=== PATIENT | male | born 1980 | race Caucasian/White ===

== ENCOUNTER 2016-09-07 08:50 | Inpatient (IN) | payer MEDICARE, OTHER ==
[2016-09-07 09:43] LABS: Basophils % (A) 1 %; CH 28.5; Eosinophils # (A) 0.3 k/uL (0-0.7); Eosinophils % (A) 5 %; HCT 22.4 % (39.0-53.0); HDW 3.22; HGB 7.5 gm/dL (13.0-17.5); Luc # (Auto) 0.07; Luc % (Auto) 1; Lymphocytes # (A) 1.7 k/uL (1.0-4.8); Lymphocytes % (A) 27 %; MCH 27.5 pg (25.0-35.0); MCHC 33.6 g/dL (31.0-37.0); MCV 81.9 fL (80.0-100.0); Mean Platelet Volume 8.2; Monocytes # (A) 0.3 k/uL (0-1.0); Monocytes % (A) 5 %; Neutrophils # (A) 3.7 k/uL (1.3-7.7); Neutrophils % (A) 61 %; RBC 2.73 m/uL (4.30-5.90); RDW 14.4 % (11.5-15.5); WBC 6.1 k/uL (3.8-10.6); WBC (Perox) 6.42
[2016-09-07 09:53] LABS: INR 0.9 (<1.1); Partial Thromboplastin Time 22.1 sec (22.0-30.0); Prothrombin Time 9.3 sec (9.0-12.0)
[2016-09-07 09:57] LABS: Calcium 7.8 mg/dL (8.4-10.2); Potassium 4.7 mmol/L (3.5-5.1); Total Bilirubin 0.2 mg/dL (0.2-1.3); Total Protein 4.3 g/dL (6.3-8.2)
--- NOTE | 2016-09-07 09:59 | ED ---
General Adult HPI - General Chief complaint: Recheck/Abnormal Lab/Rx Stated complaint: ABNORMAL KIDNEY VALUES, SENT BY Time Seen by Provider: 09/07/16 09:04 Source: patient, RN notes reviewed Mode of arrival: wheelchair Limitations: no limitations - History of Present Illness Initial comments: Patient 36-year-old male who presents to the emergency room today with chief complaint of abnormal lab values. He states he was advised by his roving carrier come to the emergency room. He states he had blood drawn 2-3 days ago and was called this morning with results stating that his kidney function had elevated. Patient does admit to swelling locally to his lower extremities bilaterally down to his feet and also swelling to his scrotum. Patient denies any recent fever, chills, shortness of breath, chest pain, back pain, abdominal pain, nausea or vomiting, numbness or tingling, dysuria or hematuria, constipation or diarrhea, headaches or visual changes, or any other complaints. - Related Data Home Medications Medication Instructions Recorded Confirmed DULoxetine HCL [Cymbalta] 60 mg PO HS 05/22/15 09/07/16 DULoxetine HCL [Cymbalta] 60 mg PO HS 05/23/15 09/07/16 Hydrocodone/Acetaminophen [[place] 1 tab PO Q6HR PRN 12/26/15 09/07/16 5-325] Pravastatin Sodium [Pravachol] 40 mg PO HS 12/26/15 09/07/16 ARIPiprazole [Abilify] 10 mg PO HS 09/07/16 09/07/16 Diltiazem Cd [Cardizem Cd] 180 mg PO HS 09/07/16 09/07/16 Folic Acid/Multivit-Min/[place] 1 tab PO HS 09/07/16 09/07/16 [Therapeutic-M Tablet] Omeprazole [PriLOSEC] 40 mg PO HS 09/07/16 09/07/16 Previous Rx's Medication Instructions Recorded Carvedilol [Coreg] 25 mg PO BID #60 tablet 12/29/15 Allergies Allergy/AdvReac Type Severity Reaction Status Date / Time atorvastatin calcium AdvReac Nausea & Verified 09/07/16 09:10 [From Lipitor] Vomiting losartan potassium AdvReac Nausea & Verified 09/07/16 09:10 [From Cozaar] Vomiting Review of Systems ROS Statement: Those systems with pertinent positive or pertinent negative responses have been documented in the HPI. ROS Other: All systems not noted in ROS Statement are negative. Past Medical History Past Medical History: Diabetes Mellitus, Hyperlipidemia, Hypertension, Renal Disease Additional Past Medical History / Comment(s): diabetic since he was age 21. insulin pump since 2009.PER EGD(HIATAL HERNIA) History of Any Multi-Drug Resistant Organisms: C-DIFF, MRSA Date of last positivie culture/infection: 2015 C-diff per Nel[facility] admin charge MDRO Source:: foot wound Additional Past Surgical History / Comment(s): 2008 left great toe amp and 2013 2nd to 5th left foot. toes amputated. right chest mediport x2 with removal in 2010 and 2012. right eye retina reattachment sx 03/2015.EGD. Past Anesthesia/Blood Transfusion Reactions: No Reported Reaction Past Psychological History: Depression Smoking Status: Never smoker Past Alcohol Use History: Rare Additional Past Alcohol Use History / Comment(s): Patient states he is a lifelong nonsmoker. He denies any medical marijuana, marijuana, street drug use. He states he drinks alcohol on a rare basis. Past Drug Use History: None Reported - Past Family History Mother Family Medical History: Hypertension Father Family Medical History: CVA/TIA, Hypertension General Exam - General Exam Comments Initial Comments: General: The patient is awake and alert, in no distress, and does not appear acutely ill. Eye: Pupils are equal, round and reactive to light, extra-ocular movements are intact. No nystagmus. There is normal conjunctiva bilaterally. No signs of icterus. Ears, nose, mouth and throat: There are moist mucous membranes and no oral lesions. Neck: The neck is supple, there is no tenderness or JVD. Cardiovascular: There is a regular rate and rhythm. No murmur, rub or gallop is appreciated. Respiratory: Lungs are clear to auscultation, respirations are non-labored, breath sounds are equal. No wheezes, stridor, rales, or rhonchi. Gastrointestinal: Soft, non-distended, non-tender abdomen without masses or organomegaly noted. There is no rebound or guarding present. No CVA tenderness. Bowel sounds are unremarkable. Musculoskeletal: Normal ROM, no tenderness. Strength 5/5. Sensation intact. Pulses equal bilaterally 2+. 2+ pitting edema bilaterally to the lower charities. Neurological: A&O x 3. CN II-XII intact, There are no obvious motor or sensory deficits. Coordination appears grossly intact. Speech is normal. Skin: Skin is warm and dry and no rashes or lesions are noted. Psychiatric: Cooperative, appropriate mood & affect, normal judgment. : Patient does have moderate swelling to the scrotal sac bilaterally. Normal rectal tone. No bright red blood per rectum. Guaiac negative. Limitations: no limitations Course Vital Signs 09/07/16 09/07/16 09:00 10:14 Temperature 97.9 F Pulse Rate 76 72 Respiratory 16 18 Rate Blood Pressure 132/78 140/81 O2 Sat by Pulse 98 95 Oximetry Medical Decision Making - Medical Decision Making Patient's labs reviewed here in the emergency room. Shows Hemoccult 7.5. Guaiac-negative. Denies any blood per rectum. Denies history of blood transfusion. Patient's BUN/creatinine elevated here the emergency room. Patient does have anasarca. Patient will be admitted for acute renal injury. Patient x-ray reviewed shows pneumonia right lower lobe. Will be started on antibiotic in the emergency room. Consult to nephrology. - Lab Data Result diagrams: 09/07/16 09:30 09/07/16 09:30 Lab Results 09/07/16 09/07/16 09/07/16 Range/Units 09:30 09:30 09:30 WBC 6.1 (3.8-10.6) k/uL RBC 2.73 L (4.30-5.90) m/uL Hgb 7.5 L (13.0-17.5) gm/dL Hct 22.4 L (39.0-53.0) % MCV 81.9 (80.0-100.0) fL MCH 27.5 (25.0-35.0) pg MCHC 33.6 (31.0-37.0) g/dL RDW 14.4 (11.5-15.5) % Plt Count 236 (150-450) k/uL Neutrophils % 61 % Lymphocytes % 27 % Monocytes % 5 % Eosinophils % 5 % Basophils % 1 % Neutrophils # 3.7 (1.3-7.7) k/uL Lymphocytes # 1.7 (1.0-4.8) k/uL Monocytes # 0.3 (0-1.0) k/uL Eosinophils # 0.3 (0-0.7) k/uL Basophils # 0.0 (0-0.2) k/uL PT (9.0-12.0) sec INR (<1.1) APTT (22.0-30.0) sec Sodium 131 L (137-145) mmol/L Potassium 4.7 (3.5-5.1) mmol/L Chloride 102 (98-107) mmol/L Carbon Dioxide 19 L (22-30) mmol/L Anion Gap 10 mmol/L BUN 54 H (9-20) mg/dL Creatinine 4.96 H (0.66-1.25) mg/dL Est GFR (MDRD) Af Amer 16 (>60 ml/min/1.73 sqM) Est GFR (MDRD) Non-Af 13 (>60 ml/min/1.73 sqM) Glucose 360 H (74-99) mg/dL POC Glucose (mg/dL) (75-99) mg/dL POC Glu Long Good[employer] Drier ID Calcium 7.8 L (8.4-10.2) mg/dL Total Bilirubin 0.2 (0.2-1.3) mg/dL AST 16 L (17-59) U/L ALT 36 (21-72) U/L Alkaline Phosphatase 90 (38-126) U/L NT-Pro-B Natriuret Pep 2240 pg/mL Total Protein 4.3 L (6.3-8.2) g/dL Albumin 2.0 L (3.5-5.0) g/dL 09/07/16 09/07/16 Range/Units 09:30 10:38 WBC (3.8-10.6) k/uL RBC (4.30-5.90) m/uL Hgb (13.0-17.5) gm/dL Hct (39.0-53.0) % MCV (80.0-100.0) fL MCH (25.0-35.0) pg MCHC (31.0-37.0) g/dL RDW (11.5-15.5) % Plt Count (150-450) k/uL Neutrophils % % Lymphocytes % % Monocytes % % Eosinophils % % Basophils % % Neutrophils # (1.3-7.7) k/uL Lymphocytes # (1.0-4.8) k/uL Monocytes # (0-1.0) k/uL Eosinophils # (0-0.7) k/uL Basophils # (0-0.2) k/uL PT 9.3 (9.0-12.0) sec INR 0.9 (<1.1) APTT 22.1 (22.0-30.0) sec Sodium (137-145) mmol/L Potassium (3.5-5.1) mmol/L Chloride (98-107) mmol/L Carbon Dioxide (22-30) mmol/L Anion Gap mmol/L BUN (9-20) mg/dL Creatinine (0.66-1.25) mg/dL Est GFR (MDRD) Af Amer (>60 ml/min/1.73 sqM) Est GFR (MDRD) Non-Af (>60 ml/min/1.73 sqM) Glucose (74-99) mg/dL POC Glucose (mg/dL) 354 H (75-99) mg/dL POC Glu Long Good[employer] Drier ID Omar Proctor Calcium (8.4-10.2) mg/dL Total Bilirubin (0.2-1.3) mg/dL AST (17-59) U/L ALT (21-72) U/L Alkaline Phosphatase (38-126) U/L NT-Pro-B Natriuret Pep pg/mL Total Protein (6.3-8.2) g/dL Albumin (3.5-5.0) g/dL Disposition Clinical Impression: Acute renal injury, Anasarca, Community acquired pneumonia, Anemia Disposition: ADMITTED IP TO THIS [facility] Condition: Stable Time of Disposition: 11:18
--- NOTE | 2016-09-07 10:22 | XR ---
EXAMINATION TYPE: XR chest 2V DATE OF EXAM: 09/07/2016 10:09 AM COMPARISON: Chest x-ray January 21, 2016. HISTORY: Leg swelling TECHNIQUE: Frontal and lateral views of the chest are obtained. FINDINGS: There is new suspicious posterior medial right lower lobe airspace opacity. No large pleur al effusion or pneumothorax is present bilaterally The cardiac silhouette size is within normal limit s. The osseous structures are intact. IMPRESSION: New suspicious right medial posterior basilar infiltrate.
[2016-09-07 10:40] LABS: Glucose,Whole Blood 354 mg/dL (75-99)
[2016-09-07] MEDS ORDERED: INSULIN LISPRO (humaLOG) 300 UNIT/3 ML VIAL SQ ONE (10:54)
[2016-09-07] MEDS ORDERED: PNEUMONIA PROTOCOL UTILIZED 1 EACH MISC PO PRN (11:19)
[2016-09-07] MEDS ORDERED: SODIUM CHLORIDE 0.9% 1,000 ML IV ONE (11:19)
[2016-09-07] MEDS ORDERED: LEVOFLOXACIN 750MG-D5W PMX 750 MG in DEXTROSE/WATER 1 150ML.BAG IVPB STA (11:19)
[2016-09-07] MEDS ORDERED: NALOXONE 0.4 MG/ML 1 ML VIAL IV PRN (11:20)
[2016-09-07] MEDS ORDERED: ACETAMINOPHEN TAB 325 MG TAB PO PRN (11:20)
[2016-09-07] MEDS: HYDROcodone/APAP 5-325MG 1 EACH TAB PO PRN ×2 (14:57→20:19)
[2016-09-07 16:39] LABS: CH 28.7; CHCM 34.4; HCT 22.5 % (39.0-53.0); HDW 3.22; HGB 7.4 gm/dL (13.0-17.5); MCH 27.7 pg (25.0-35.0); RBC 2.67 m/uL (4.30-5.90); RDW 14.6 % (11.5-15.5); WBC 5.6 k/uL (3.8-10.6)
[2016-09-07 17:40] LABS: Glucose,Whole Blood 178 mg/dL (75-99)
[2016-09-07] MEDS: CARVEDILOL 12.5 MG TAB PO SCH (20:20)
[2016-09-07 20:34] LABS: Glucose,Whole Blood 56 mg/dL (75-99)
[2016-09-07 21:19] LABS: Glucose,Whole Blood 102 mg/dL (75-99)
[2016-09-07 21:19] LABS: Glucose,Whole Blood 60 mg/dL (75-99)
[2016-09-07] MEDS: PANTOPRAZOLE 40 MG TABLET PO SCH (21:54)
[2016-09-07] MEDS: DILTIAZEM CD 180 MG CAP.ER.24H PO SCH (21:54)
[2016-09-07] MEDS: PRAVASTATIN SODIUM 40 MG TAB PO SCH (21:54)
[2016-09-07] MEDS: ARIPiprazole 10 MG TAB PO SCH (21:54)
[2016-09-07] MEDS: DULoxetine HCL 60 MG CAPSULE.DR PO SCH (21:54)
[2016-09-07] MEDS: MULTIVITAMINS, THERA 1 EACH TAB PO SCH (21:54)
[2016-09-08] MEDS: HYDROcodone/APAP 5-325MG 1 EACH TAB PO PRN ×4 (03:11→20:58)
[2016-09-08 08:25] LABS: Glucose,Whole Blood 147 mg/dL (75-99)
[2016-09-08] MEDS: HEPARIN SODIUM,PORCINE 5,000 UNIT/ML 1 ML VIAL SQ SCH ×2 (08:38→21:01)
[2016-09-08] MEDS: CARVEDILOL 12.5 MG TAB PO SCH ×2 (08:38→17:26)
[2016-09-08 08:43] LABS: Basophils % (A) 1 %; CHCM 33.5; Eosinophils # (A) 0.4 k/uL (0-0.7); Eosinophils % (A) 5 %; HCT 25.3 % (39.0-53.0); HDW 3.15; HGB 8.4 gm/dL (13.0-17.5); Luc # (Auto) 0.14; Luc % (Auto) 2; Lymphocytes # (A) 1.7 k/uL (1.0-4.8); Lymphocytes % (A) 24 %; MCHC 33.3 g/dL (31.0-37.0); MCV 83.9 fL (80.0-100.0); Mean Platelet Volume 7.4; Monocytes # (A) 0.4 k/uL (0-1.0); Monocytes % (A) 5 %; Neutrophils # (A) 4.4 k/uL (1.3-7.7); Neutrophils % (A) 63 %; RBC 3.01 m/uL (4.30-5.90); RDW 14.7 % (11.5-15.5); WBC (Perox) 7.58
[2016-09-08 09:02] LABS: Calcium 7.8 mg/dL (8.4-10.2); Potassium 4.6 mmol/L (3.5-5.1); Total Bilirubin 0.2 mg/dL (0.2-1.3); Total Protein 4.6 g/dL (6.3-8.2)
--- NOTE | 2016-09-08 09:06 | HP ---
DATE OF ADMISSION: 09/07/2016 CHIEF COMPLAINT: Abnormal lab values sent from photographic artist office. HISTORY OF PRESENT ILLNESS: Mr. Acharya is a 36-year-old male with a known history of chronic kidney disease stage V, diabetes type 1 on insulin, hypertension, hyperlipidemia, history of GI bleed and right eye surgery and history of left foot MRSA infection status post amputation of left all toes, was sent to the emergency room from Dr. Charles's office with chief complaints of abnormal lab values. Patient advised by his photographic artist to come to the emergency room. Patient also having worsening leg swelling and bilateral lower extremity and scrotal swelling as well and generalized swelling. Otherwise, the patient denied any complaints of recent fever, chills. No recent illnesses. No sick contacts at home. No complaints of chest pain or shortness of breath. The patient does have right foot ulcer which is oozing serosanguineous discharge, and also left toe amputation skin flap is also oozing as well. No fever. No chills. No headache or dizziness or lightheadedness. No ( ) symptoms. All other complete review of systems negative except as above. Past medical history includes: Diabetes type 1 on insulin pump, hypertension, hyperlipidemia, CKD Stage III, history of C. dif. History of MRSA. PAST SURGICAL HISTORY: Left great toe amputation in 2008, second to fifth left foot toe amputation in 2013, right chest Mediport placement x2 with removal in 2010 and 2012, right eye retinal detachment surgery in March 2015 and EGD. PSYCHOSOCIAL HISTORY: Depression. SOCIAL HISTORY: Patient never a smoker. Denied any drugs or IVDU. Drinks on a rare occasional basis. FAMILY HISTORY: Mother had hypertension. Father had CVA/transient ischemic attack and hypertension. Home medications include: 1. Duloxetine. 2. [place] 5. 3. Pravastatin. 4. Abilify. 5. Cardizem CD. 6. Therapeutic M tablet. 7. Omeprazole. 8. Coreg. ALLERGIES: include: ATORVASTATIN, LOSARTAN, POTASSIUM, COZAAR. PHYSICAL EXAMINATION: A 36-year-old male lying in bed. Awake, alert, oriented, x3 appears to be in no apparent distress. VITALS: Blood pressure is 140/81, pulse is 72, respiration 18 and temperature afebrile. Pulse ox 97% on room air. HEENT: Atraumatic, normocephalic, puffiness present. Neck is supple. No JVD. CVS: S1, S2 heard. No murmurs, no gallop. LUNGS: Bilateral air entry is present. No wheezing. No crackles. Nonlabored breathing. Abdomen is soft, nontender. Bowel sounds are present. Patient does have scrotal edema. NEUROLOGICAL: Alert and oriented times three. No focal neurologic deficits. EXTREMITIES: The patient does have bilateral lower extremity edema and scrotal edema 4+ edema. Pulses palpable. Left first to fifth toe amputation with skin flap and drainage and oozing and serous discharge. Right foot ulcer on the plantar surface of first great toe, gangrenous tissue with oozing discharge. No active signs of infection noted. PSYCHIATRIC: Cooperative, seems depressed. LABORATORY DATA: WBC 6.1, hemoglobin 7.5, platelets 236, INR 0.9, sodium 131, potassium 4.7, chloride 102, bicarb is 19. BUN 54, creatinine 4.96. GFR is 13. Blood sugar is 360. Calcium 7.8. Liver enzymes normal. NT-proBNP is 2240, albumin 2.0. Chest x-ray new suspicious right medial posterior basilar infiltrate. IMPRESSION: 1. Anasarca and fluid overload secondary to chronic kidney disease Stage V. 2. Chronic kidney disease, Stage V. 3. Uncontrolled diabetes mellitus with hyperglycemia. 4. Type 1 diabetes mellitus on insulin pump. 5. Normocytic anemia/anemia of chronic disease due to chronic kidney disease. 6. Hypertension. 7. Hyperlipidemia. 8. History of gastrointestinal bleed. 9. History of right eye retinal detachment. 10. History of left to fifth toe amputation due to Methicillin-resistant Staph aureus infection. 11. Hypoosmolar hyponatremia. 12. Anasarca secondary to chronic kidney disease V. 13. Chronic kidney disease Stage V. 14. Right basilar infiltrate with possible pneumonia. 15. Uncontrolled diabetes mellitus on insulin pump. 16. Hypertension. 17. Hyperlipidemia. 18. History of gastrointestinal bleed. 19. History of right eye retinal attachment. DISCUSSION AND PLAN: Patient will be continued on antibiotics in the form of levofloxacin and start the home medications and nephrology has been consulted for further evaluation of chronic kidney disease and continue deep venous thrombosis prophylaxis. Further recommendations based on clinical course and nephrology evaluation.
[2016-09-08] MEDS ORDERED: INSULIN PUMP ACTIVE INSULIN 1 EACH MISC MISCELLANE PRN (09:25)
[2016-09-08] MEDS ORDERED: INSULIN LISPRO (humaLOG) 300 UNIT/3 ML VIAL SQ PRN (09:25)
[2016-09-08] MEDS ORDERED: INSPUCOR MISCELLANE PRN (09:25)
[2016-09-08] MEDS ORDERED: INSULIN PUMP BASAL RATES 1 EACH MISC MISCELLANE PRN (09:25)
[2016-09-08] MEDS ORDERED: INSULIN PUMP TARGET GLUCOSE 1 EACH MISC MISCELLANE PRN (09:25)
--- NOTE | 2016-09-08 09:39 | XR ---
EXAMINATION TYPE: XR chest 2V DATE OF EXAM: 09/08/2016 8:04 AM COMPARISON: 09/07/2016 HISTORY: Abnormal x-ray FINDINGS: There is improving appearance the chest with resolving areas of consolidation involving the medial ri ght lung base. Tiny effusion not excluded. No pneumothorax or overt failure. Heart size stable. IMPRESSION: 1. Improving right lower lobe infiltrate
[2016-09-08 09:40] LABS: Appearance,Urine Clear (Clear); Bacteria,Urine Occasional /hpf; Bilirubin,Urine Negative (Negative); Glucose,Urine (UA) 3+ (Negative); Ketones,Urine Negative (Negative); Leukocyte Esterase,Urine Negative (Negative); Mucus,Urine Rare /hpf; Nitrite,Urine Negative (Negative); PH, Urine 6.5 (5.0-8.0); Particle Count 1321; Protein,Urine 3+ (Negative); RBC,Urine 1 /hpf (0-5); Specific Gravity,Urine 1.006 (1.001-1.035); Squamous Epithelial Cell,Urine <1 /hpf (0-4); UA Billing (MACRO vs. MICRO) MICRO; Urobilinogen,Urine <2.0 mg/dL (<2.0); WBC,Urine 15 /hpf (0-5)
[2016-09-08] MEDS: LEVOFLOXACIN 750 MG TAB PO SCH (12:08)
[2016-09-08 12:29] LABS: Glucose,Whole Blood 190 mg/dL (75-99)
[2016-09-08] MEDS: INSULIN PUMP MEAL BOLUS 1 UNIT MISC MISCELLANE SCH ×3 (12:50→21:17)
--- NOTE | 2016-09-08 15:09 | NM ---
EXAMINATION TYPE: NM bone 3 phase DATE OF EXAM: 09/08/2016 3:01 PM COMPARISON: 08/11/2013 HISTORY: Possible osteomyelitis bilateral foot ulcers Triple phase bone scintigraphy was performed following the injection of27.1 mCi Tc 99m MDP. Immediat e images and 7 hours post injection images acquired. FINDINGS: There is increased perfusion along the medial aspect of the feet bilaterally. Increased soft tissue u ptake is also noted with findings suggestive of previous surgery on the left. These findings are suggestive of cellulitis. Delayed uptake demonstrates mild intensity uptake involving the MTP joint of the right foot likely on a post arthritic basis. No intense abnormal uptake are seen to suggest osteomyelitis. IMPRESSION: Findings are most typical of cellulitis with no diagnostic evidence of osteomyelitis.
--- NOTE | 2016-09-08 15:15 | US ---
EXAMINATION TYPE: US kidneys/renal and bladder DATE OF EXAM: 09/08/2016 2:42 PM COMPARISON: Abd US in pacs CLINICAL HISTORY: Acute kidney injury. EXAM MEASUREMENTS: Right Kidney: 12.1 x 5.2 x 6.2cm Left Kidney: 12.3 x 5.8 x 6.2cm ANATOMY: TECHNOLOGIST IMPRESSION: Right Kidney: No hydronephrosis or masses seen Left Kidney: No hydronephrosis or masses seen Bladder: wnl Bilateral Jets seen: yes There is no evidence for hydronephrosis at this point in time. No nephrolithiasis is seen. No eliazar s are identified. The urinary bladder is anechoic. Bilateral ureteral jets are seen. IMPRESSION: Normal retroperitoneal ultrasound Normal Values: Renal Length = 9 - 12cm Bladder Wall: < 0.3cm
[2016-09-08] MEDS: FUROSEMIDE 10 MG/ML 4 ML VIAL IV SCH ×2 (15:30→21:01)
[2016-09-08] MEDS ORDERED: DARBEPOETIN ALFA 60 MCG/0.3 ML SYRINGE SQ SCH (16:15)
--- NOTE | 2016-09-08 16:38 | CONS ---
DATE OF CONSULTATION: REASON FOR CONSULTATION: Renal failure. HISTORY OF PRESENT ILLNESS: Patient is a 36-year-old white male with history of chronic kidney disease. Patient has had worsening of his renal function lately as outpatient, with GFR dropping from about 35 mL/minute to 18 mL/minute on his last visit in August. His serum creatinine has since then worsened significantly, with creatinine now at 5.3 mg/dL. His serum creatinine was at 1.96 in January of 2016. He denies the use of any non-steroidal anti-inflammatory agents. Apparently an ultrasound was done at [facility]; I do not have the results available at this time. Patient denies any significant urinary symptoms. He was advised admission to the hospital secondary to worsening renal function. Currently patient denies any nausea or vomiting. He states that he has been voiding. His hemoglobin was at 8.4 g/dL, which is up from 7.4 previously. UA shows 3+ proteinuria. Past medical history is significant for: 1. Type 2 diabetes. 2. Hyperlipidemia. 3. Hypertension. 4. CKD. 5. History of MRSA wound infection. 6. Right eye retinal surgery. SOCIAL HISTORY: Negative for smoking, drug abuse or alcohol abuse. REVIEW OF SYSTEMS: As per HPI. Other systems negative. Medications at home prior to admission included: 1. Cymbalta. 2. Pravachol. 3. Abilify. 4. Cardizem. 5. Prilosec. 6. Coreg. Vasotec was recently discontinued on his last visit in August. On examination, patient is comfortable, awake, alert, oriented x3, not in any acute distress. Blood pressure is 148/88, heart rate 74 per minute. He is afebrile. EXAMINATION OF THE HEART: S1 and S2. EXAMINATION OF THE LUNGS: Bilateral breath sounds are heard. ABDOMEN: Soft, nontender. Examination of lower extremities shows edema 1+ bilaterally. PHYSICAL CHEMISTRY TEACHER exam is grossly intact. Patient is moving all 4 extremities. Labs show sodium 137, potassium 4.6, BUN 59, serum creatinine 5.36. Hemoglobin 8.4 g/dL. Albumin 2.1. Ultrasound shows no evidence of hydronephrosis. ASSESSMENT: 1. Progressive renal failure; rule out any other underlying glomerulonephropathy versus acute tubular necrosis. Patient will need a kidney biopsy, and this can be performed early next week. We should proceed with a biopsy, given that there is no evidence of obstructive uropathy. No other obvious cause is apparent for worsening of his renal function. Workup for the proteinuria has been done as outpatient, and I will check the office records. The LARISSA inhibitors were appropriately discontinued on his last visit in the office in August, given the worsening renal function. 2. Mild volume overload. Will maintain patient on IV Lasix for now. Repeat labs in a.m. and schedule for kidney biopsy after the weekend. He will be monitored on a daily basis for need for initiation of renal replacement therapy. 3. Anemia. Rule out iron deficiency. Iron saturation was low in December. We can repeat another iron profile this admission and start patient on Procrit. No active bleeding noted at this time. I would avoid packed RBC transfusion if possible, given that the patient is young and will be proceeding with renal transplant. Thank you for this consultation. Will continue to follow the patient with you during his hospitalization.
[2016-09-08 20:55] LABS: Glucose,Whole Blood 73 mg/dL (75-99)
[2016-09-08] MEDS: PRAVASTATIN SODIUM 40 MG TAB PO SCH (21:00)
[2016-09-08] MEDS: PANTOPRAZOLE 40 MG TABLET PO SCH (21:00)
[2016-09-08] MEDS: ARIPiprazole 10 MG TAB PO SCH (21:01)
[2016-09-08] MEDS: MULTIVITAMINS, THERA 1 EACH TAB PO SCH (21:01)
[2016-09-08] MEDS: DILTIAZEM CD 180 MG CAP.ER.24H PO SCH (21:01)
[2016-09-08] MEDS: DULoxetine HCL 60 MG CAPSULE.DR PO SCH (21:01)
[2016-09-09 02:21] LABS: Glucose,Whole Blood 209 mg/dL (75-99)
[2016-09-09] MEDS: HYDROcodone/APAP 5-325MG 1 EACH TAB PO PRN ×3 (02:57→20:30)
[2016-09-09 07:45] LABS: Glucose,Whole Blood 219 mg/dL (75-99)
[2016-09-09] MEDS: HEPARIN SODIUM,PORCINE 5,000 UNIT/ML 1 ML VIAL SQ SCH ×4 (08:08→21:01)
[2016-09-09] MEDS: CARVEDILOL 12.5 MG TAB PO SCH ×2 (08:09→17:50)
[2016-09-09] MEDS: FUROSEMIDE 10 MG/ML 4 ML VIAL IV SCH ×2 (08:09→20:27)
[2016-09-09] MEDS: INSULIN PUMP MEAL BOLUS 1 UNIT MISC MISCELLANE SCH ×4 (08:20→22:03)
[2016-09-09] MEDS ORDERED: ONDANSETRON 4 MG/2 ML VIAL IVP PRN (10:42)
[2016-09-09 11:13] LABS: Calcium 7.9 mg/dL (8.4-10.2); Potassium 4.9 mmol/L (3.5-5.1)
[2016-09-09 12:29] LABS: Glucose,Whole Blood 324 mg/dL (75-99)
--- NOTE | 2016-09-09 14:31 | PN ---
DATE OF SERVICE: 09/08/2016 INTERVAL HISTORY: Mr. Howell is a 36-year-old male with a known history of chronic kidney disease with known history of worsening renal function, diabetes type 1 on insulin pump, hypertension, hyperlipidemia, and history of GI bleed and right eye surgery and left foot MRSA infection, status post amputation of all toes on the left side, came to the ER from Dr. Charles's office with worsening renal function and anasarca. Patient's ultrasound of the ( ) obstructive etiology. Otherwise patient was started on IV Lasix today and nephrology is planning for renal biopsy to rule out glomerulonephritis. Otherwise, patient denied any complaints of chest pain or short of breath. No acute overnight issues. REVIEW OF SYSTEMS: CONSTITUTIONAL: No fever, no chills. RESPIRATORY: No cough or sputum production. CARDIOVASCULAR: No chest pain or shortness of breath. ABDOMEN: No nausea, vomiting or abdominal pain. GENITOURINARY: Negative. ENDOCRINE: Negative. PSYCHIATRIC: Negative. SKIN: Negative. All other fourteen point review of systems negative except as above. CURRENT MEDICATIONS: Reviewed. PHYSICAL EXAMINATION: A 36-year-old male lying in bed. Awake, alert, oriented x3, appears to be in no apparent distress. VITALS: Blood pressure is 163/94, pulse is 81, respiratory rate 20, temperature afebrile, pulse ox is 98% on room air. HEENT: Atraumatic, normocephalic. Neck is supple. No JVD. CVS: S1, S2 heard. No murmurs, no gallop. LUNGS: Bilateral air entry is present. No wheeze or crackles. ABDOMEN: Soft, nontender. Bowel sounds are present. PUPPET DEVELOPER: Awake, alert, oriented x3. No focal deficits. EXTREMITIES: Bilateral 4+ edema including scrotal edema. Pulses palpable bilaterally. No clubbing or cyanosis. PSYCHIATRIC: Cooperative. LABORATORY DATA: WBC 7, hemoglobin 8.4, platelets 270, sodium 137, potassium 4.6, chloride 108, bicarb is 22, BUN 59, creatinine 5.36. Albumin 2.1. IMPRESSION: 1. Anasarca and fluid overload secondary to worsening renal function. 2. Acute on chronic kidney disease stage V. 3. Progressive renal failure possible underlying glomerulonephropathy. Nephrology is planning for renal biopsy this admission 4. Anemia of chronic disease. 5. Uncontrolled diabetes mellitus and hyperglycemia. 6. Type 1 diabetes mellitus on insulin pump. 7. Hypertension. 8. Hyperlipidemia. 9. History of gastrointestinal bleed. 10. History of right eye retinal detachment. 11. History of left foot toes amputation, secondary to methicillin-resistant Staphylococcus aureus infection. 12. Hypoosmolar hyponatremia. 13. Anasarca secondary to worsening renal function. 14. Right basilar infiltrate with possible pneumonia. 15. Uncontrolled diabetes mellitus on insulin pump. 16. Hypertension. DISCUSSION AND PLAN: Patient will be continued on antibiotics in the form of levofloxacin and with improvement in right lower lobe pneumonia and continue with diuresis with IV Lasix and Nephrology is following the patient. Anticipate biopsy early next week. We will continue to monitor hemoglobin and hematocrit and follow up closely. Further recommendations depending on clinical course.
--- NOTE | 2016-09-09 16:10 | PN ---
Patient is seen for follow-up for acute kidney top of chronic kidney disease. His renal function had been worsening as outpatient and therefore the patient was admitted. He also had evidence of fluid overload and is maintained on IV diuretics, two which he has responded well. There was no evidence of obstructive uropathy on the ultrasound and I had discussed with the patient that we will proceed with a kidney biopsy if there ultrasound was normal or showed no evidence of obstruction to explain the recent worsening of his renal function. No significant complaints at this time. On examination, blood pressure is 165/92, heart rate 83 per minute. He is afebrile. Examination of the heart S1 and S2. Examination of the lungs: Decreased breath sounds in bases. ABDOMEN: Soft, nontender. Examination of the lower extremities shows edema 2+ bilaterally with seems to have decreased. Labs show sodium 138, potassium 4.9, BUN 59, serum creatinine 5.2. ASSESSMENT: 1. Acute kidney injury on top of chronic kidney disease. We will schedule patient for kidney biopsy. He does have nephrotic range proteinuria, which is presumed to be mostly secondary to diabetes. Work-up as outpatient had been negative. I am also advised the patient that we will need to monitor his labs on a daily basis, assess for need for renal replacement therapy which hopefully he will not need soon. 2. Fluid overload. Continue with Lasix at 40 mg q.12 hours. PLAN: Continue current dose of diuretics. Repeat labs and scheduled for kidney biopsy this admission.
[2016-09-09 17:07] LABS: Glucose,Whole Blood 375 mg/dL (75-99)
[2016-09-09] MEDS ORDERED: hydrALAZINE HCL 20 MG/ML 1 ML VIAL IVP STA (17:12)
[2016-09-09 18:43] LABS: Glucose,Whole Blood 345 mg/dL (75-99)
[2016-09-09] MEDS: PRAVASTATIN SODIUM 40 MG TAB PO SCH (20:26)
[2016-09-09] MEDS: PANTOPRAZOLE 40 MG TABLET PO SCH (20:26)
[2016-09-09] MEDS: ARIPiprazole 10 MG TAB PO SCH (20:26)
[2016-09-09] MEDS: DILTIAZEM CD 180 MG CAP.ER.24H PO SCH (20:26)
[2016-09-09] MEDS: DULoxetine HCL 60 MG CAPSULE.DR PO SCH (20:26)
[2016-09-09] MEDS: MULTIVITAMINS, THERA 1 EACH TAB PO SCH (20:27)
[2016-09-09 20:57] LABS: Glucose,Whole Blood 276 mg/dL (75-99)
[2016-09-09] MEDS: TEMAZEPAM 7.5 MG CAP PO PRN (22:01)
[2016-09-10 02:14] LABS: Glucose,Whole Blood 123 mg/dL (75-99)
[2016-09-10] MEDS: HYDROcodone/APAP 5-325MG 1 EACH TAB PO PRN ×3 (05:25→22:15)
[2016-09-10 07:27] LABS: Glucose,Whole Blood 99 mg/dL (75-99)
[2016-09-10] MEDS: HEPARIN SODIUM,PORCINE 5,000 UNIT/ML 1 ML VIAL SQ SCH ×2 (09:33→21:02)
[2016-09-10] MEDS: FUROSEMIDE 10 MG/ML 4 ML VIAL IV SCH ×2 (09:33→20:59)
[2016-09-10] MEDS: INSULIN PUMP MEAL BOLUS 1 UNIT MISC MISCELLANE SCH ×4 (09:34→22:13)
[2016-09-10] MEDS: CARVEDILOL 12.5 MG TAB PO SCH ×2 (09:35→16:54)
[2016-09-10 12:17] LABS: Glucose,Whole Blood 184 mg/dL (75-99)
[2016-09-10] MEDS: LEVOFLOXACIN 750 MG TAB PO SCH (12:24)
[2016-09-10 12:38] LABS: Calcium 8.1 mg/dL (8.4-10.2); Potassium 4.8 mmol/L (3.5-5.1)
--- NOTE | 2016-09-10 14:54 | PN ---
The patient is seen for follow-up for acute kidney injury on top of chronic kidney disease. He was admitted to the hospital with worsening renal function. He was also volume overloaded and is currently maintained on diuretics. His serum creatinine has not improved much, and is staying at about 5.2 mg/dL. Patient will be scheduled for a kidney biopsy hopefully Sunday or Sunday. On examination today, patient is comfortable, awake. He is not in any acute distress. Blood pressure 156/97, heart rate 83 per minute. He is afebrile. Examination shows patient's edema has improved in his lower extremities. Abdomen is soft, nontender. Labs show sodium 138, potassium 4.8, chloride 108, BUN 56, serum creatinine 5.24. ASSESSMENT: 1. Progressive renal failure scheduled for kidney biopsy. No evidence of obstructive uropathy on ultrasound. Initial etiology for chronic kidney disease was diabetic nephropathy, which would not explain the worsening of renal function even as outpatient. 2. Volume overload, now improving. Patient is maintained on Lasix 40 mg IV q.12 hours which we can continue for now. 3. Hypertension, controlled. 4. Anemia of chronic disease, maintained on Aranesp as hemoglobin was up to 8.4 on 09/08/2016. PLAN: Continue Lasix, check CBC in a.m. and schedule kidney biopsy.
[2016-09-10 17:20] LABS: Glucose,Whole Blood 156 mg/dL (75-99)
[2016-09-10] MEDS: PRAVASTATIN SODIUM 40 MG TAB PO SCH (21:00)
[2016-09-10] MEDS: DILTIAZEM CD 180 MG CAP.ER.24H PO SCH (21:00)
[2016-09-10] MEDS: DULoxetine HCL 60 MG CAPSULE.DR PO SCH (21:00)
[2016-09-10] MEDS: MULTIVITAMINS, THERA 1 EACH TAB PO SCH (21:00)
[2016-09-10] MEDS: ARIPiprazole 10 MG TAB PO SCH (21:00)
[2016-09-10] MEDS: PANTOPRAZOLE 40 MG TABLET PO SCH (21:00)
[2016-09-10] MEDS: TEMAZEPAM 7.5 MG CAP PO PRN (22:13)
[2016-09-10 22:16] LABS: Glucose,Whole Blood 245 mg/dL (75-99)
[2016-09-11 02:03] LABS: Glucose,Whole Blood 309 mg/dL (75-99)
[2016-09-11 07:39] LABS: Glucose,Whole Blood 196 mg/dL (75-99)
[2016-09-11] MEDS: INSULIN PUMP MEAL BOLUS 1 UNIT MISC MISCELLANE SCH ×4 (09:09→21:44)
[2016-09-11] MEDS: FUROSEMIDE 10 MG/ML 4 ML VIAL IV SCH ×2 (09:09→20:49)
[2016-09-11] MEDS: CARVEDILOL 12.5 MG TAB PO SCH ×2 (09:10→17:39)
[2016-09-11] MEDS: HEPARIN SODIUM,PORCINE 5,000 UNIT/ML 1 ML VIAL SQ SCH ×2 (09:10→20:49)
[2016-09-11 11:49] LABS: Glucose,Whole Blood 221 mg/dL (75-99)
[2016-09-11] MEDS: HYDROcodone/APAP 5-325MG 1 EACH TAB PO PRN (14:00)
[2016-09-11 16:51] LABS: Glucose,Whole Blood 99 mg/dL (75-99)
--- NOTE | 2016-09-11 19:51 | PN ---
The patient is seen for follow-up for acute kidney injury. He was admitted as his renal function had been worsening as outpatient. Currently, the patient is comfortable. He has been diuresed and his volume status has improved. Renal function has not improved since admission and patient will be scheduled for kidney biopsy hopefully tomorrow. If his kidney biopsy is delayed for another 2 to 3 days he can have it done as outpatient. On examination, blood pressure is 161/97, heart rate 84 per minute. He is afebrile. Examination of the heart S1 and S2. Examination of the lungs: Bilateral breath sounds are heard. ABDOMEN: Soft, nontender. Examination of the lower extremities shows edema which is decreased. Labs are not available from today. ASSESSMENT: 1. Acute kidney injury on top of chronic kidney disease, most likely related to worsening of his underlying chronic kidney disease. There is no evidence of obstructive uropathy and patient will be scheduled for kidney biopsy hopefully tomorrow. If his kidney biopsy is not being done for another 2 days or so than he can have it done as outpatient. 2. Volume overload, currently improved. Patient remains on IV Lasix. We can likely switch him to p.o. Lasix tomorrow. 3. Anemia of chronic disease, maintained on Aranesp. 4. Diabetes. PLAN: Kidney biopsy in a.m., switch to oral diuretics in a.m., check labs in the a.m.
[2016-09-11] MEDS: PRAVASTATIN SODIUM 40 MG TAB PO SCH (20:48)
[2016-09-11] MEDS: ARIPiprazole 10 MG TAB PO SCH (20:48)
[2016-09-11] MEDS: DULoxetine HCL 60 MG CAPSULE.DR PO SCH (20:48)
[2016-09-11] MEDS: DILTIAZEM CD 180 MG CAP.ER.24H PO SCH (20:48)
[2016-09-11] MEDS: MULTIVITAMINS, THERA 1 EACH TAB PO SCH (20:48)
[2016-09-11] MEDS: PANTOPRAZOLE 40 MG TABLET PO SCH (20:48)
[2016-09-11 21:09] LABS: Glucose,Whole Blood 112 mg/dL (75-99)
[2016-09-11] MEDS: TEMAZEPAM 7.5 MG CAP PO PRN (22:09)
[2016-09-12 02:14] LABS: Glucose,Whole Blood 136 mg/dL (75-99)
[2016-09-12 07:25] LABS: Glucose,Whole Blood 136 mg/dL (75-99)
[2016-09-12 07:38] VITALS: PULSE 88; RESP 18; TEMP 97.7
[2016-09-12] MEDS: INSULIN PUMP MEAL BOLUS 1 UNIT MISC MISCELLANE SCH ×2 (08:12→13:28)
[2016-09-12] MEDS: FUROSEMIDE 10 MG/ML 4 ML VIAL IV SCH (08:12)
[2016-09-12] MEDS: CARVEDILOL 12.5 MG TAB PO SCH (08:13)
[2016-09-12] MEDS: HEPARIN SODIUM,PORCINE 5,000 UNIT/ML 1 ML VIAL SQ SCH (08:13)
[2016-09-12 09:17] LABS: INR 0.9 (<1.1); Prothrombin Time 9.7 sec (9.0-12.0)
[2016-09-12 09:53] VITALS: BP 168/104
[2016-09-12 09:54] LABS: Calcium 7.9 mg/dL (8.4-10.2); Potassium 4.5 mmol/L (3.5-5.1)
[2016-09-12 10:25] LABS: Basophils % (A) 0 %; CH 27.7; CHCM 32.2; Eosinophils # (A) 0.3 k/uL (0-0.7); Eosinophils % (A) 5 %; HDW 3.06; HGB 8.4 gm/dL (13.0-17.5); Hypochromasia Slight; Luc # (Auto) 0.09; Luc % (Auto) 2; Lymphocytes # (A) 1.7 k/uL (1.0-4.8); Lymphocytes % (A) 32 %; MCH 28.1 pg (25.0-35.0); MCHC 32.3 g/dL (31.0-37.0); MCV 86.9 fL (80.0-100.0); Mean Platelet Volume 7.2; Monocytes # (A) 0.3 k/uL (0-1.0); Monocytes % (A) 6 %; Neutrophils % (A) 55 %; RBC 2.99 m/uL (4.30-5.90); RDW 15.2 % (11.5-15.5); WBC 5.5 k/uL (3.8-10.6); WBC (Perox) 5.79
[2016-09-12] MEDS: LEVOFLOXACIN 750 MG TAB PO SCH (11:31)
[2016-09-12 11:45] LABS: Glucose,Whole Blood 223 mg/dL (75-99)
[2016-09-12 16:25] LABS: Glucose,Whole Blood 103 mg/dL (75-99)
--- NOTE | 2016-09-12 22:41 | PN ---
DATE OF SERVICE: 09/12/2016 Patient is seen for followup for acute kidney injury on top of chronic kidney disease. He also had volume overload, for which he was maintained on diuretics. Patient's blood pressure has been running high. He will not be scheduled for a kidney biopsy in the next day or so as inpatient. The plan is to do the biopsy as outpatient. Currently patient denies any nausea or vomiting. He seems to have good appetite. On examination, blood pressure is 164/98, heart rate 88 per minute. He is afebrile. EXAMINATION OF THE HEART: S1 and S2. EXAMINATION OF THE LUNGS: Decreased breath sounds in bases. ABDOMEN: Soft, nontender. Examination of the lower extremities shows edema 1+ bilaterally, currently improved. Labs show serum creatinine 5.3, sodium 140, potassium 4.5; hemoglobin 8.4 g/dL. ASSESSMENT: 1. Acute kidney injury on top of chronic kidney disease with worsening of renal function and no evidence of obstructive uropathy or any other etiology that was identified. Patient is scheduled for a kidney biopsy; however, it cannot be done as inpatient for the next day or so. Therefore patient will have it done as outpatient. 2. Hypertension, partly volume-sensitive. Increase Coreg and follow up as outpatient in one week's time. Continue with the diuretics. Patient will be switched over to 60 p.o. b.i.d. 3. Anemia of chronic disease. No active bleeding noted at this time. Patient is maintained on Aranesp. PLAN: Okay for discharge. Increase Coreg to 25 b.i.d. Continue the Cardizem. Maintain patient on oral Lasix. Follow up as outpatient in one week.
--- NOTE | 2016-09-27 23:19 | PN ---
DATE OF SERVICE: 09/09/2016 HISTORY OF PRESENT ILLNESS: Mr. Howell is a 36-year-old male with known history of CKD with a history of worsening renal function and diabetes, type I, on insulin pump, hypertension, hyperlipidemia, history of GI bleed, right eye surgery and left foot MRSA infection, status post amputation of all toes on the left side. He came to the hospital from Dr. hCarles's office. Patient was found to have fluid overload and is currently on IV diuresis. Nephrology is planning for ( ) renal biopsy on Sunday. Otherwise patient denied any complaints at this time. Leg swelling is much improved now. REVIEW OF SYSTEMS: CONSTITUTIONAL: No fever. No chills. RESPIRATORY: No cough or sputum production. CARDIOVASCULAR: No chest pain or shortness of breath. ABDOMEN: No nausea, vomiting or abdominal pain. GENITOURINARY: Negative. ENDOCRINE: Negative. PSYCHIATRIC: Negative. SKIN: Negative. MUSCULOSKELETAL: Negative. All other fourteen-point review of systems negative except as stated above. CURRENT MEDICATIONS: Reviewed. PHYSICAL EXAMINATION: A 36-year-old male lying in bed comfortably. Awake, alert, oriented x3. Appears to be in no distress. VITALS: Blood pressure is 165/92. Pulse is 83, respiration 18, temperature afebrile. Pulse ox is saturating well on room air. HEENT: Atraumatic, normocephalic. Neck is supple. No JVD. CVS EXAM: S1, S2 heard. No murmurs. No gallop. No rub. LUNGS: Bilateral air entry is present. No wheezing. No crackles. ABDOMEN: Soft, nontender. Bowel sounds present. SOCIAL PSYCHOLOGIST: Awake, alert, oriented x3. No focal neurologic deficits. EXTREMITIES: Bilateral 3+ edema. Pulses palpable bilaterally. No clubbing or cyanosis. PSYCHIATRIC: Cooperative. LABORATORY DATA: Sodium 138, potassium 4.9. BUN 59, creatinine 5.2. IMPRESSION: 1. Acute on chronic kidney disease, stage V, with ( ) proteinuria. Nephrology is planning for renal biopsy. 2. Anasarca/fluid overload secondary to chronic kidney disease. Edema is improved with IV diuresis. 3. Progressive renal failure with possible underlying glomerular nephropathy. 4. Anemia of chronic disease. 5. Uncontrolled diabetes mellitus and hyperglycemia. 6. Type 1 diabetes mellitus, on insulin pump. 7. Hypertension. 8. Hyperlipidemia. 9. History of gastrointestinal bleed. 10. History of right eye retinal detachment. 11. 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 12. Hypo-osmolar hyponatremia. 13. Anasarca secondary to worsening renal function. 14. Right basilar infiltrate with possible pneumonia. 15. Uncontrolled diabetes mellitus, on insulin pump. DISCUSSION AND PLAN: Patient will be continued on antibiotics in the form of levofloxacin. Continue with IV diuresis in the form of IV Lasix. Nephrology is following the patient. Follow up renal function and ( ) biopsy on Sunday. Nephrology is following the patient. Will follow hemoglobin and hematocrit. DVT prophylaxis with heparin subcutaneously.
--- NOTE | 2016-09-27 23:48 | PN ---
DATE OF SERVICE: 09/10/2016 HISTORY OF PRESENT ILLNESS: Mr. Howell is a 36-year-old male with a known history of multiple medical problems, including type 1 diabetes mellitus, hypertension and CKD. He was admitted to the hospital with acute on chronic kidney disease and worsening generalized swelling; currently being diuresed with IV Lasix. Nephrology is following the patient, planning for possible renal biopsy on Sunday. Otherwise, patient denies any complaints today. REVIEW OF SYSTEMS: CONSTITUTIONAL: No fever. No chills. RESPIRATORY: No cough or sputum production. CARDIOVASCULAR: No chest pain or shortness of breath. ABDOMEN: No nausea, vomiting, abdominal pain. GENITOURINARY: Negative. ENDOCRINE: Negative. PSYCHIATRIC: Negative. SKIN: Negative. All other fourteen-point review of systems negative except as above. CURRENT MEDICATIONS: Reviewed. PHYSICAL EXAMINATION: Jacvhp-ryvrh-luxj-old male lying in the bed comfortably. Awake, alert, oriented x3. No apparent distress. VITALS: Blood pressure is 156/97. Pulse is 83. Saturating on room air. Patient is afebrile. HEENT: Atraumatic, normocephalic. Neck is supple. No JVD. CVS EXAM: S1, S2 heard. No murmurs. No gallop. No rub. LUNGS: Bilateral air entry is present. No wheezing. No crackles. Non-labored breathing. ABDOMEN: Soft, nontender. Bowel sounds present. FLAT SPRING ASSEMBLER: Awake, alert, oriented x3. No focal neurologic deficits. EXTREMITIES: Bilateral 3+ edema. Pulses palpable bilaterally. No clubbing or cyanosis. Edema is improving. PSYCHIATRIC: Cooperative. ASSESSMENT: 1. Acute on chronic kidney disease, stage V. 2. Progressive renal failure with possible ongoing glomerulonephropathy. Nephrology is planning for renal biopsy. 3. Anasarca and fluid overload secondary to worsening renal function, improved with diuresis. 4. Anemia of chronic disease. 5. Uncontrolled diabetes mellitus. 6. Type 1 diabetes mellitus, on insulin pump. 7. Hypertension. 8. Hyperlipidemia. 9. History of gastrointestinal bleed. 10. History of right eye retinal detachment. 11. 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 12. Hypo-osmolar hyponatremia. 13. Right basilar infiltrate with possible pneumonia. 14. Deep venous thrombosis prophylaxis. DISCUSSION AND PLAN: A 36-year-old male admitted to the hospital with worsening renal function. Continue with IV diuresis now. Continue with antibiotics. Follow renal function. Possible renal biopsy to rule out underlying glomerulonephropathy. Nephrology is following the patient.
--- NOTE | 2016-09-28 05:51 | PN ---
DATE OF SERVICE: 09/11/2016 INTERVAL HISTORY: Mr. Howell is a 36-year-old male who was admitted to the hospital with worsening renal function from Dr. Charles's office and currently being able to assist and patient's other medical problems includes hypertension, uncontrolled diabetes mellitus and CKD currently being diuresed with IV diuresis and his leg swelling is much improved now. Denied any worsening short of breath. No nausea or vomiting. No acute overnight issues. No fever. No chills. REVIEW OF SYSTEMS: CONSTITUTIONAL: No fever. No chills. RESPIRATORY: No cough or sputum production. CARDIOVASCULAR: No chest pain or short of breath. ABDOMEN: No nausea, vomiting, or abdominal pain. GENITOURINARY: Negative. ENDOCRINE: Negative. PSYCHIATRIC: Negative. SKIN: Negative. MUSCULOSKELETAL: Negative. All other 14-point review of systems negative except as above. CURRENT MEDICATIONS: Reviewed. PHYSICAL EXAMINATION: A 36-year-old male lying in bed comfortably. Awake, alert, oriented x3, appears to be in no apparently distress. VITALS: Blood pressure is 161/97, pulse is 84, respirations 18, temperature afebrile, pulse ox saturating well on room air. HEENT: Atraumatic, normocephalic. Neck is supple. No JVD. CVS EXAM: S1, S2 heard. No murmurs, no gallop, no rub. LUNGS: Bilateral air entry is present. No wheezing, no rales. ABDOMEN: Soft, nontender. Bowel sounds are present. MEDICAL STAFF MANAGER: Awake, alert, oriented x3. No focal neurologic deficit. EXTREMITIES: 2+ edema. Pulses are palpable bilaterally. No clubbing or cyanosis. PSYCHIATRIC: Cooperative. LABORATORY DATA: Reviewed. IMPRESSION: 1. Progressive renal failure secondary to possible underlying glomerulonephropathy. Nephrology is planning for renal biopsy, possibly tomorrow as an outpatient. 2. Acute on chronic kidney disease, stage V. 3. Anasarca and fluid overload secondary to worsening renal function. 4. Anemia of chronic disease. 5. Type 1 diabetes mellitus on insulin pump. 6. Hypertension. 7. History of gastrointestinal bleed. 8. Hypoosmolar hyponatremia. 9. Right bibasilar infiltrate possible pneumonia. 10. Deep venous thrombosis prophylaxis. DISCUSSION AND PLAN: Will continue the IV diuresis and can be changed to p.o. possibly tomorrow and continue the antibiotic. Nephrology is following this with possible biopsy tomorrow. Further recommendations based on the clinical course.
--- NOTE | 2016-09-28 10:52 | DS ---
DATE OF ADMISSION: 09/07/2016 DATE OF DISCHARGE: 09/12/2016 DISCHARGE DIAGNOSES: 1. Acute on chronic kidney disease stage V, possible underlying glomerular nephritis suspected and needle biopsy as an outpatient, since it cannot be done today in the hospital. 2. Volume overload secondary to worsening renal function. 3. Uncontrolled diabetes mellitus with hyperglycemia. 4. Type 1 diabetes mellitus on insulin pump. 5. Acute hypertension. 6. Hyperlipidemia. 7. History of gastrointestinal bleed. 8. History of right eye retinal reattachment. 9. 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 10. Hyposmolar hyponatremia. 11. Right basilar infiltrate with possible pneumonia, currently on antibiotics in the hospital. 12. Deep venous thrombosis prophylaxis. HOSPITAL COURSE: Mr. Howell is a 36-year-old male with a known history of multiple medical problems including CKD, was admitted to the hospital with worsening renal function and acute on chronic kidney disease from Dr. Charles's office. Patient was fluid overloaded secondary to chronic kidney disease and currently, having currently been diuresed with IV Lasix and Lasix has been changed to 60 mg b.i.d. as per Nephrology recommendations. Otherwise, due to worsening renal function, possible underlying glomerular nephropathy was suspected and was being planned for renal biopsy today which cannot be done in the next 2 days while in the hospital. Otherwise, patient is stable to be discharged home and Nephrology is planning for renal biopsy within a week as an outpatient. Otherwise, patient is stable clinically at this time. DISCHARGE PHYSICAL EXAMINATION: A 36-year-old male, lying in the bed. Awake, alert, oriented x3, appears to be in no apparent distress. VITALS: Blood pressure is 164/98, pulse is 88, respiration 18, temperature afebrile. Pulse ox saturating on room air. LABORATORY DATA: Reviewed. BUN 55, creatinine 5.82, hemoglobin 8.4. Discharge physical examination done. Discharge medications include: 1. Cymbalta 120 mg p.o. at bedtime. 2. [place] 5-325 one tablet q.6 hourly p.r.n. for pain. 3. Lovastatin 40 mg p.o. at bedtime. 4. Coreg 25 mg p.o. b.i.d. 5. Abilify 10 mg p.o. at bedtime. 6. Cardizem CD 180 mg p.o. at bedtime. 7. Folic acid/multivitamin/lutein 1 tablet p.o. at bedtime. 8. Omeprazole 40 mg p.o. at bedtime. 9. Lasix 60 mg p.o. b.i.d. 10. Insulin Aspart insulin pump as directed. Home with self-care. Renal diet. Follow with Dr. Charles and follow with Dr. Chad Trevino.
== END 2016-09-12 14:00 | disposition home or self-care (01) | DRG 698 ==
LOC: EC 08:50 → 4MS4W 11:19
PROVIDERS: ADMIT Internal Medicine; ATTEND Internal Medicine
DX: N04.9 Nephrotic syndrome with unspecified morphologic changes (principal); J18.9 Pneumonia, unspecified organism; N17.9 Acute kidney failure, unspecified; E10.21 Type 1 diabetes mellitus with diabetic nephropathy; I12.0 Hypertensive chronic kidney disease with stage 5 chronic kidney disease or end stage renal disease; N18.5 Chronic kidney disease, stage 5; E87.1 Hypo-osmolality and hyponatremia; E10.65 Type 1 diabetes mellitus with hyperglycemia; D63.1 Anemia in chronic kidney disease; L97.519 Non-pressure chronic ulcer of other part of right foot with unspecified severity; R80.9 Proteinuria, unspecified; E78.5 Hyperlipidemia, unspecified; E10.22 Type 1 diabetes mellitus with diabetic chronic kidney disease; R60.1 Generalized edema; F32.9 Major depressive disorder, single episode, unspecified; E87.70 Fluid overload, unspecified; K44.9 Diaphragmatic hernia without obstruction or gangrene; N50.89 Other specified disorders of the male genital organs; Z96.41 Presence of insulin pump (external) (internal); Z79.4 Long term (current) use of insulin; Z86.14 Personal history of Methicillin resistant Staphylococcus aureus infection; Z82.3 Family history of stroke; Z82.49 Family history of ischemic heart disease and other diseases of the circulatory system; Z88.8 Allergy status to other drugs, medicaments and biological substances; Z87.19 Personal history of other diseases of the digestive system; Z86.19 Personal history of other infectious and parasitic diseases; Z86.69 Personal history of other diseases of the nervous system and sense organs; Z89.412 Acquired absence of left great toe; Z89.422 Acquired absence of other left toe(s); Z79.891 Long term (current) use of opiate analgesic; Z79.899 Other long term (current) drug therapy
CPT/HCPCS: 36415; 71020; 76770; 78315; 80048; 80053; 81001; 83880; 85025; 85027; 85610; 85730; 87040; 87086; 99285

== ENCOUNTER → 2016-09-21 | Outpatient (CLI) | payer MEDICARE, OTHER ==
[2016-09-21 14:16] LABS: CHCM 32.7; HCT 26.6 % (39.0-53.0); HDW 3.34; HGB 8.3 gm/dL (13.0-17.5); Hypochromasia Slight; MCH 26.8 pg (25.0-35.0); MCHC 31.1 g/dL (31.0-37.0); MCV 86.3 fL (80.0-100.0); Mean Platelet Volume 7.9; RBC 3.09 m/uL (4.30-5.90); RDW 14.5 % (11.5-15.5); WBC 6.1 k/uL (3.8-10.6)
[2016-09-21 14:19] LABS: INR 0.9 (<1.1); Partial Thromboplastin Time 22.7 sec (22.0-30.0); Prothrombin Time 9.4 sec (9.0-12.0)
[2016-09-21 14:25] LABS: Potassium 4.9 mmol/L (3.5-5.1)
== END | disposition home or self-care (01) ==
LOC: LABWHC1 13:18
PROVIDERS: ATTEND Internal Medicine Nephrology
DX: N28.9 Disorder of kidney and ureter, unspecified (principal)
CPT/HCPCS: 36415; 80051; 82565; 84520; 85027; 85610; 85730; 86850; 86900; 86901; 86920

== ENCOUNTER 2016-09-22 08:58 | Day surgery (SDC) | payer MEDICARE, OTHER ==
[2016-09-22] MEDS ORDERED: ALPRAZolam 0.5 MG TAB PO ONE (09:03)
[2016-09-22] MEDS ORDERED: HYDROmorphone 1 MG/ML 1 ML SYRINGE IVP PRN (09:03)
[2016-09-22 09:15] VITALS: TEMP 98.9
[2016-09-22 09:34] LABS: Glucose,Whole Blood 355 mg/dL (75-99)
[2016-09-22 10:39] VITALS: RESP 18
--- NOTE | 2016-09-22 11:02 | CT ---
EXAMINATION TYPE: CT biopsy renal LT DATE OF EXAM: 09/22/2016 10:51 AM HISTORY: N28.9 COMPARISON: NONE Maximal barrier technique was utilized. The skin overlying a suitable path to the lower pole left re nal cortex was localized using CT and the overlying skin was prepped and draped. Lidocaine used for local anesthesia. A skin juan made with a scalpel. Using CT guidance, access was gained to the lowe r pole renal cortex with a 17-gauge guide needle. Of note there are inconsistent respirations causing change in position of the kidney. Core specimen submitted to pathology. 5 passes were performed in all. Following the procedure no immediate complications. The patient is discharged in stable condi tion. Hemostasis achieved. IMPRESSION: SUCCESSFUL CT GUIDED CORE BIOPSY of left renal cortex. PATHOLOGY PENDING. THIS PROCEDURE WAS PERFOR MED BY THE UNDERSIGNED.
[2016-09-22 11:37] LABS: Glucose,Whole Blood 221 mg/dL (75-99)
[2016-09-22 13:20] LABS: Glucose,Whole Blood 184 mg/dL (75-99)
[2016-09-22] MEDS ORDERED: HYDROcodone/APAP 5-325MG 1 EACH TAB PO STA (13:36)
[2016-09-22 14:51] VITALS: BP 134/71; PULSE 84
== END 2016-09-22 15:20 | disposition home or self-care (01) ==
LOC: RADPROMAIN 08:58
PROVIDERS: ATTEND Internal Medicine Nephrology
DX: N18.3 Chronic kidney disease, stage 3 (moderate) (principal)
CPT/HCPCS: 77012; 86850; 86900; 86901; 86920

== ENCOUNTER 2016-10-18 09:11 | Inpatient (IN) | payer MEDICARE, OTHER ==
--- NOTE | 2016-10-18 09:55 | ED ---
Weakness HPI - General Chief complaint: Weakness Stated complaint: kidney pain, state Hx Time Seen by Provider: 10/18/16 09:37 Source: patient, RN notes reviewed Mode of arrival: wheelchair Limitations: no limitations - History of Present Illness Initial comments: 28-year-old male presents emergency Department chief complaint weakness. Patient states she's had a recent diagnosis of renal failure. Patient states she's had headache increase diffuse swelling that started 1 week ago. Patient states he feels very fatigued, short breath. Patient states she does have a history of anemia and states that his hemoglobin was 8 or 9 other day. Patient did call his metal work duct installer who recommended him to come emergency department. Patient states he had a fistula placed in his right wrist region last week by Dr. Phillips's office. They did discuss about possibly placing delivery port for dialysis. Patient does take Lasix for swelling but states it is not helping at this time. Patient denies any decreased urine output. Patient denies fever, chills. Patient states she does have a slight cough and some shortness of breath. - Related Data Home Medications Medication Instructions Recorded Confirmed DULoxetine HCL [Cymbalta] 120 mg PO HS 05/22/15 10/18/16 Hydrocodone/Acetaminophen [[place] 1 tab PO Q6HR PRN 12/26/15 10/18/16 5-325] Pravastatin Sodium [Pravachol] 40 mg PO HS 12/26/15 10/18/16 ARIPiprazole [Abilify] 10 mg PO HS 09/07/16 10/18/16 Diltiazem Cd [Cardizem CD] 180 mg PO HS 09/07/16 10/18/16 Folic Acid/Multivit-Min/Lutein 1 tab PO HS 09/07/16 10/18/16 [Therapeutic-M Tablet] Omeprazole [PriLOSEC] 40 mg PO HS 09/07/16 10/18/16 Insulin Aspart (For Pump) [NovoLOG 1.4 - 1.6 units SQ DIRECTED 09/22/1610/18 (For Pump)] Epoetin [place] [Procrit] 1 unit INJ Q7D PRN 10/18/16 10/18/16 Ergocalciferol [Vitamin D2] 50,000 unit PO Q7D 10/18/16 10/18/16 Ferrous Sulfate [Feosol] 325 mg PO DAILY 10/18/16 10/18/16 Metolazone [Zaroxolyn] 5 mg PO DAILY 10/18/16 10/18/16 Previous Rx's Medication Instructions Recorded Carvedilol [Coreg] 25 mg PO BID #60 tablet 12/29/15 Furosemide [Lasix] 60 mg PO BID #60 tab 09/12/16 Allergies Allergy/AdvReac Type Severity Reaction Status Date / Time atorvastatin calcium AdvReac Nausea & Verified 10/18/16 09:49 [From Lipitor] Vomiting losartan potassium AdvReac Nausea & Verified 10/18/16 09:49 [From Cozaar] Vomiting Review of Systems ROS Statement: Those systems with pertinent positive or pertinent negative responses have been documented in the HPI. ROS Other: All systems not noted in ROS Statement are negative. Past Medical History Past Medical History: Diabetes Mellitus, Eye Disorder, GI Bleed, Hyperlipidemia , Hypertension, Renal Disease Additional Past Medical History / Comment(s): IDDM type II, diabetic since he was age 21, insulin pump since 2009, DKA, hiatal hernia, R eye retinal detachment with surgery-vision decreased, CKD stage III, anemia, upper GI bleed- PUD. History of Any Multi-Drug Resistant Organisms: C-DIFF, MRSA Date of last positivie culture/infection: 01/19/16 CDiff in stool. MRSA 2013 MDRO Source:: left foot wound Additional Past Surgical History / Comment(s): 2008 left great toe amp and 2013 2nd to 5th left foot toes amputated. right chest mediport x2 with removal in 2010 and 2012. right eye retina reattachment sx 03/2015. EGD/colonoscopy. Past Anesthesia/Blood Transfusion Reactions: No Reported Reaction Past Psychological History: Depression Additional Psychological History / Comment(s): Pt resides with his mother. He uses a cane at times. He drives. Smoking Status: Never smoker Past Alcohol Use History: Rare Additional Past Alcohol Use History / Comment(s): Patient states he is a lifelong nonsmoker. He denies any medical marijuana, marijuana, street drug use. He states he drinks alcohol on a rare basis. Past Drug Use History: None Reported - Past Family History Mother Family Medical History: Hypertension Father Family Medical History: CVA/TIA, Diabetes Mellitus, Hypertension Additional Family Medical History / Comment(s): Father is at the age of 53yrs. General Exam Limitations: no limitations General appearance: alert, in no apparent distress, other (Appears pale) Head exam: Present: atraumatic, normocephalic, normal inspection Eye exam: Present: normal appearance, PERRL, EOMI. Absent: scleral icterus, conjunctival injection, periorbital swelling ENT exam: Present: normal exam, normal oropharynx, mucous membranes moist Neck exam: Present: normal inspection, full ROM. Absent: tenderness, meningismus, lymphadenopathy Respiratory exam: Present: normal lung sounds bilaterally. Absent: respiratory distress, wheezes, rales, rhonchi, stridor Cardiovascular Exam: Present: regular rate, normal rhythm, normal heart sounds. Absent: systolic murmur, diastolic murmur, rubs, gallop, clicks GI/Abdominal exam: Present: soft, normal bowel sounds. Absent: distended, tenderness, guarding, rebound, rigid Extremities exam: Present: other (Fistula in the right wrist palpable thrill, diffuse edema noted, 2+ pitting edema lower extremities) Neurological exam: Present: alert, oriented X3, CN II-XII intact Skin exam: Present: warm, dry, intact, normal color. Absent: rash Course Vital Signs 10/18/16 10/18/16 09:22 09:56 Temperature 97.8 F Pulse Rate 80 81 Respiratory 18 16 Rate Blood Pressure 149/81 O2 Sat by Pulse 97 96 Oximetry EKG Findings - EKG Comments: EKG Findings:: EKG performed at 9:51 normal sinus rhythm with a rate of 81. TX interval 124 QRS duration 94, QT/QTc 408/473 Medical Decision Making - Lab Data Result diagrams: 10/18/16 09:55 10/18/16 09:55 Lab Results 10/18/16 10/18/16 10/18/16 Range/Units 09:55 09:55 09:55 WBC 6.2 (3.8-10.6) k/uL RBC 2.72 L (4.30-5.90) m/uL Hgb 7.2 L (13.0-17.5) gm/dL Hct 22.9 L (39.0-53.0) % MCV 84.1 (80.0-100.0) fL MCH 26.4 (25.0-35.0) pg MCHC 31.4 (31.0-37.0) g/dL RDW 15.1 (11.5-15.5) % Plt Count 231 (150-450) k/uL Neutrophils % 62 % Lymphocytes % 22 % Monocytes % 8 % Eosinophils % 5 % Basophils % 1 % Neutrophils # 3.9 (1.3-7.7) k/uL Lymphocytes # 1.4 (1.0-4.8) k/uL Monocytes # 0.5 (0-1.0) k/uL Eosinophils # 0.3 (0-0.7) k/uL Basophils # 0.0 (0-0.2) k/uL Sodium 134 L (137-145) mmol/L Potassium 4.6 (3.5-5.1) mmol/L Chloride 105 (98-107) mmol/L Carbon Dioxide 20 L (22-30) mmol/L Anion Gap 9 mmol/L BUN 69 H (9-20) mg/dL Creatinine 8.10 H* (0.66-1.25) mg/dL Est GFR (MDRD) Af Amer 9 (>60 ml/min/1.73 sqM) Est GFR (MDRD) Non-Af 7 (>60 ml/min/1.73 sqM) Glucose 99 (74-99) mg/dL Calcium 7.9 L (8.4-10.2) mg/dL Phosphorus 7.9 H (2.5-4.5) mg/dL Magnesium 2.3 (1.6-2.3) mg/dL Total Bilirubin 0.3 (0.2-1.3) mg/dL AST 17 (17-59) U/L ALT 34 (21-72) U/L Alkaline Phosphatase 74 (38-126) U/L NT-Pro-B Natriuret Pep 36768 pg/mL Total Protein 4.8 L (6.3-8.2) g/dL Albumin 2.4 L (3.5-5.0) g/dL Disposition Clinical Impression: Acute on chronic renal failure, CHF (congestive heart failure), Anasarca, Anemia Disposition: ADMITTED IP TO THIS HOSP Condition: Stable
--- NOTE | 2016-10-18 10:18 | XR ---
EXAMINATION TYPE: XR chest 2V DATE OF EXAM: 10/18/2016 10:13 AM COMPARISON: NONE HISTORY: Weakness FINDINGS: Bilateral lower lobe infiltrate and small effusion. No pneumothorax. Interstitial pattern seen. IMPRESSION: 1. Bilateral lower lobe infiltrate and small effusion. Correlate for pneumonitis or venous congestion .
[2016-10-18 10:22] LABS: Basophils % (A) 1 %; CH 27.7; CHCM 33.1; Eosinophils # (A) 0.3 k/uL (0-0.7); Eosinophils % (A) 5 %; HCT 22.9 % (39.0-53.0); HDW 3.24; HGB 7.2 gm/dL (13.0-17.5); Luc % (Auto) 2; Lymphocytes # (A) 1.4 k/uL (1.0-4.8); Lymphocytes % (A) 22 %; MCH 26.4 pg (25.0-35.0); MCHC 31.4 g/dL (31.0-37.0); MCV 84.1 fL (80.0-100.0); Mean Platelet Volume 8.2; Monocytes # (A) 0.5 k/uL (0-1.0); Monocytes % (A) 8 %; Neutrophils # (A) 3.9 k/uL (1.3-7.7); Neutrophils % (A) 62 %; RBC 2.72 m/uL (4.30-5.90); RDW 15.1 % (11.5-15.5); WBC 6.2 k/uL (3.8-10.6); WBC (Perox) 6.34
[2016-10-18 10:33] LABS: Calcium 7.9 mg/dL (8.4-10.2); Magnesium 2.3 mg/dL (1.6-2.3); Phosphorous 7.9 mg/dL (2.5-4.5); Potassium 4.6 mmol/L (3.5-5.1); Total Bilirubin 0.3 mg/dL (0.2-1.3); Total Protein 4.8 g/dL (6.3-8.2)
[2016-10-18] MEDS ORDERED: CARVEDILOL 12.5 MG TAB PO STA (11:04)
[2016-10-18] MEDS ORDERED: ACETAMINOPHEN TAB 325 MG TAB PO PRN (11:07)
[2016-10-18] MEDS ORDERED: ONDANSETRON 4 MG/2 ML VIAL IVP PRN (11:07)
[2016-10-18] MEDS ORDERED: NALOXONE 0.4 MG/ML 1 ML VIAL IV PRN (11:07)
[2016-10-18 12:32] LABS: INR 0.9 (<1.1); Partial Thromboplastin Time 23.4 sec (22.0-30.0); Prothrombin Time 9.7 sec (9.0-12.0)
[2016-10-18 14:31] LABS: Appearance,Urine Clear (Clear); Bilirubin,Urine Negative (Negative); Glucose,Urine (UA) 2+ (Negative); Ketones,Urine Negative (Negative); Leukocyte Esterase,Urine Negative (Negative); Mucus,Urine Rare /hpf; Nitrite,Urine Negative (Negative); Particle Count 1735; Protein,Urine 3+ (Negative); Specific Gravity,Urine 1.007 (1.001-1.035); UA Billing (MACRO vs. MICRO) MICRO; Urobilinogen,Urine <2.0 mg/dL (<2.0); WBC,Urine 2 /hpf (0-5)
--- NOTE | 2016-10-18 16:10 | P.GSCN ---
History of Present Illness History of present illness: 36-year-old white male, patient is known to me from the past from the wound clinic he came to the emergency room with history of weakness, anemia, history of headache, patient has been diagnosed with acute chronic renal failure I was consulted by her Dr. Charles for placement of the dialysis catheter On examination neck is supple no bruit appreciated Chest is clear auscultation first and second sound normal Abdomen soft nontender Femoral pulses are palpable radial pulses are present impression is acute chronic failure history of diabetes plan is placement of dialysis catheter infection discussed infection bleeding Past Medical History Past Medical History: Diabetes Mellitus, Eye Disorder, GI Bleed, Hyperlipidemia , Hypertension, Renal Disease Additional Past Medical History / Comment(s): IDDM type I, diabetic since he was age 21, insulin pump since 2009, DKA, hiatal hernia, R eye retinal detachment with surgery-vision decreased, CKD stage IV, anemia, upper GI bleed- PUD. History of Any Multi-Drug Resistant Organisms: C-DIFF, MRSA Year Discovered:: 01/19/16 CDiff in stool. MRSA 2013 MDRO Source:: left foot wound Additional Past Surgical History / Comment(s): renal needle bx, 2008 left great toe amp and 2013 2nd to 5th left foot toes amputated. right chest mediport x2 with removal in 2010 and 2012. right eye retina reattachment sx 03/2015. EGD/ colonoscopy. Past Anesthesia/Blood Transfusion Reactions: No Reported Reaction Past Psychological History: Depression Additional Psychological History / Comment(s): Pt resides with his mother. He uses a cane at times. He drives. Smoking Status: Never smoker Past Alcohol Use History: Rare Additional Past Alcohol Use History / Comment(s): Patient states he is a lifelong nonsmoker. He denies any medical marijuana, marijuana, street drug use. He states he drinks alcohol on a rare basis. Past Drug Use History: None Reported - Past Family History Mother Family Medical History: Hypertension Father Family Medical History: CVA/TIA, Diabetes Mellitus, Hypertension Additional Family Medical History / Comment(s): Father is at the age of 53yrs from a CVA. Medications and Allergies Home Medications Medication Instructions Recorded Confirmed Type DULoxetine HCL [Cymbalta] 120 mg PO HS 05/22/15 10/18/16 History Hydrocodone/Acetaminophen [[place] 1 tab PO Q6HR PRN 12/26/15 10/18/16 History 5-325] Pravastatin Sodium [Pravachol] 40 mg PO HS 12/26/15 10/18/16 History ARIPiprazole [Abilify] 10 mg PO HS 09/07/16 10/18/16 History Diltiazem Cd [Cardizem CD] 180 mg PO HS 09/07/16 10/18/16 History Folic Acid/Multivit-Min/Lutein 1 tab PO HS 09/07/16 10/18/16 History [Therapeutic-M Tablet] Omeprazole [PriLOSEC] 40 mg PO HS 09/07/16 10/18/16 History Insulin Aspart (For Pump) [NovoLOG 1.4 - 1.6 units SQ DIRECTED 09/22/1610/18 History (For Pump)] Epoetin [place] [Procrit] 1 unit INJ Q7D PRN 10/18/16 10/18/16 History Ergocalciferol [Vitamin D2] 50,000 unit PO Q7D 10/18/16 10/18/16 History Ferrous Sulfate [Feosol] 325 mg PO DAILY 10/18/16 10/18/16 History Metolazone [Zaroxolyn] 5 mg PO DAILY 10/18/16 10/18/16 History Allergies Allergy/AdvReac Type Severity Reaction Status Date / Time atorvastatin calcium AdvReac Nausea & Verified 10/18/16 09:49 [From Lipitor] Vomiting losartan potassium AdvReac Nausea & Verified 10/18/16 09:49 [From Cozaar] Vomiting Surgical - Exam Vital Signs Temp Pulse Resp BP Pulse Ox 97.8 F 80 18 149/81 97 10/18/16 09:22 10/18/16 09:22 10/18/16 09:22 10/18/16 09:22 10/18/16 09:22 Results - Labs 10/18/16 09:55 10/18/16 09:55 Abnormal Lab Results - Last 24 Hours (Table) 10/18/16 Range/Units 14:00 Urine Protein 3+ H (Negative) Urine Glucose (UA) 2+ H (Negative) Urine Blood Small H (Negative) Urine Mucus Rare H (None) /hpf
[2016-10-18] MEDS: MIDAZOLAM 2 MG/2 ML VIAL IVP ONE ×2 (16:47→17:17)
[2016-10-18] MEDS ORDERED: LIDOCAINE 2% INJ 20 MG/ML SQ ONE ×3 (16:48)
[2016-10-18] MEDS ORDERED: SODIUM CHLORIDE 0.9% 500 ML IV ONE (16:50)
[2016-10-18] MEDS ORDERED: fentaNYL (PF) 50 MCG/ML 2 ML AMP IV ONE (17:08)
[2016-10-18] MEDS ORDERED: IOHEXOL 350 MG/ML 100 ML BOTTLE INJ ONE (17:19)
--- NOTE | 2016-10-18 17:35 | P.PCN ---
Description of Procedure: Preoperative diagnoses is acute chronic renal failure Superior venacavogram, and T8 CM dialysis catheter placement right internal jugular vein Procedure this patient was brought to the [employer] right side of the neck and chest were prepped and draped applied a used an manner this patient had a Port-A -Cath placed in the past through the right jugular approach there was some difficulty in excess in the jugular vein we did a venacavogram and found to have vena cava was patent after that 1% lidocaine were infiltrated and a micropuncture introduced to the right tendon and internal jugular vein and a venacavogram was performed and found to have a vena cava was patent after that guidewire was passed and parked in the inferior vena cava a tunnel was created to the terminal be brought 20. Same dialysis catheter dilator and sheath were advanced on the top of the guidewire and through the sheath we introduced the 28 same dialysis catheter tip of the catheter was a superior vena cava and atrium flushed with heparin saline and Hep-Lock secured with Vicryl and nylon dressing applied patient for the procedure well
[2016-10-18] MEDS: INSULIN LISPRO (humaLOG) 300 UNIT/3 ML VIAL SQ SCH ×2 (18:02→21:52)
[2016-10-18] MEDS: CARVEDILOL 12.5 MG TAB PO SCH (18:03)
[2016-10-18] MEDS: FUROSEMIDE 20 MG TAB PO SCH (18:03)
--- NOTE | 2016-10-18 18:16 | XR ---
EXAMINATION TYPE: XR chest 1V portable DATE OF EXAM: 10/18/2016 6:09 PM COMPARISON: Today HISTORY: Catheter placement TECHNIQUE: Single frontal view of the chest is obtained. FINDINGS: There is a dual-lumen right side central venous catheter with the tip in the superior vena cava. Catheter appears in good position. There is no pneumothorax. There is very slight blunting of costophrenic angles. IMPRESSION: Catheter appears in good position. Small pleural effusions are unchanged compared to exa m this morning.
[2016-10-18 18:17] LABS: Hemoglobin A1C 10.9 % (4.2-6.1)
[2016-10-18 18:29] LABS: Glucose,Whole Blood 55 mg/dL (75-99)
[2016-10-18 18:29] LABS: Glucose,Whole Blood 55 mg/dL (75-99)
[2016-10-18 18:41] LABS: Glucose,Whole Blood 82 mg/dL (75-99)
--- NOTE | 2016-10-18 19:10 | CONS ---
REASON FOR CONSULTATION: Renal failure. DATE OF CONSULTATION: 10/18/2016 HISTORY OF PRESENT ILLNESS: Patient is a 36-year-old white male with history of chronic kidney disease currently at stage 5 most likely secondary to diabetic nephropathy. Patient had a kidney biopsy done, which unfortunately did not have tissue specimen; however, light microscopy showed evidence of diabetic changes. Patient has had an AV fistula placed last week by Dr. Fernando with Dr. Phillips and he was scheduled to have PermCath placed as outpatient; however, he has not been feeling well and has had increased weakness. He has also been anemic. No active bleeding noted. Patient denies any significant chest pains. He is mildly short of breath and has been complaining of nausea and decreased oral intake. PAST MEDICAL HISTORY: 1. Chronic kidney disease. 2. Type 1 diabetes. 3. History of GI bleed. 4. Hyperlipidemia. 5. Hypertension. 6. Retinal detachment. 7. Peripheral vascular disease. 8. History of C. diff. colitis. 9. History of MRSA infection in the left great toe. PAST SURGICAL HISTORY: EGD, colonoscopy, amputation of the left great toe and 2nd to 5th toes on the left foot, eye surgery. Social history is negative for smoking, drug abuse or alcohol abuse. REVIEW OF SYSTEMS: As per HPI. Other systems negative. Medications at home include: 1. Pravachol. 2. Cymbalta. 3. [place]. 4. Abilify. 5. Cardizem. 6. Procrit. 7. Iron. 8. Zaroxolyn. 9. Vitamin D. 10. Insulin. 11. Prilosec. 12. Coreg. 13. Lasix. ALLERGIES INCLUDE LIPITOR, COZAAR. On examination, patient is currently comfortable. He is awake, not in any acute distress. Blood pressure is 148/78, heart rate 83 per minute. He is afebrile. HEART: S1 and S2. There is a pericardial rub heard. LUNGS: Good air entry bilaterally. Abdomen is soft, nontender. Lower extremities show edema 2+ bilaterally. 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 [place]ix[place] is noted. Labs show serum potassium 4.6, sodium 134, creatinine 8.1. Hemoglobin 7.2 g/dL. ASSESSMENT: 1. Chronic kidney disease stage 5, status post arteriovenous fistula, right arm. Patient needs to start dialysis. We will consult Vascular Surgery and plan for PermCath placement and arrange for hemodialysis in a.m. 2. Uremic pericarditis. This will improve with hemodialysis. Patient is currently hemodynamically stable. 3. Anemia of chronic disease. No active bleeding noted. Will maintain patient on Aranesp. 4. Elevated light chains on blood work done at [facility] last week for which I have discussed repeat kidney biopsy to be performed and I have advised the patient that we can attempt a second biopsy after he has been dialyzed at least 2 times. His hemoglobin is already on the lower side. 5. Volume overload. 6. Gastroesophageal reflux disease. 7. Dyslipidemia. 8. Peripheral vascular disease. PLAN: Hemodialysis in a.m, start Aranesp/Procrit and we will plan for kidney biopsy possibly Sunday or Sunday. Thank you for this consultation.
[2016-10-18 19:37] VITALS: BMI 27.6
[2016-10-18] MEDS ORDERED: DARBEPOETIN ALFA 40 MCG/0.4 ML SYRINGE SQ SCH (20:00)
[2016-10-18] MEDS: PRAVASTATIN SODIUM 40 MG TAB PO SCH (20:30)
[2016-10-18] MEDS: PANTOPRAZOLE 40 MG TABLET PO SCH (20:30)
[2016-10-18] MEDS: DULoxetine HCL 60 MG CAPSULE.DR PO SCH (20:31)
[2016-10-18] MEDS: ARIPiprazole 10 MG TAB PO SCH (20:31)
[2016-10-18] MEDS: DILTIAZEM CD 180 MG CAP.ER.24H PO SCH (20:31)
[2016-10-18 20:51] LABS: Glucose,Whole Blood 178 mg/dL (75-99)
[2016-10-19 07:08] LABS: Glucose,Whole Blood 274 mg/dL (75-99)
--- NOTE | 2016-10-19 08:57 | IR ---
EXAMINATION TYPE: IR cvc insert central tunneled DATE OF EXAM: 10/18/2016 5:45 PM COMPARISON: NONE HISTORY: Peripheral vascular occlusive disease. Fluoroscopy was applied to the referring clinician. See dictated report from cardiology.
[2016-10-19] MEDS: INSULIN LISPRO (humaLOG) 300 UNIT/3 ML VIAL SQ SCH ×4 (09:13→21:16)
[2016-10-19] MEDS: HYDROcodone/APAP 5-325MG 1 EACH TAB PO PRN ×2 (09:19→21:21)
[2016-10-19] MEDS: FERROUS SULFATE 325 MG TAB PO SCH (10:00)
[2016-10-19] MEDS: FUROSEMIDE 20 MG TAB PO SCH ×2 (10:00→17:15)
[2016-10-19] MEDS: CARVEDILOL 12.5 MG TAB PO SCH ×2 (10:00→17:16)
[2016-10-19] MEDS: METOLAZONE 5 MG TAB PO SCH (10:00)
[2016-10-19 12:07] LABS: Phosphorous 8.1 mg/dL (2.5-4.5)
[2016-10-19 12:24] LABS: Glucose,Whole Blood 359 mg/dL (75-99)
--- NOTE | 2016-10-19 12:32 | HP ---
DATE OF ADMISSION: The patient is a 36-year-old with known history of chronic kidney disease and the patient apparently previous biopsy just showed diabetic nephropathy changes. The patient apparently will need another biopsy. Came in with complaints of shortness of breath. Shortness of breath has been going on for 2 to 3 days and patient was found to have bilateral pulmonary edema and bilateral pleural effusions. Patient has increasing pedal edema, although patient is able to urinate. Patient was given 60 mg of Lasix in ER with improvement in his symptoms today. Nephrology was consulted. When patient came in, his creatinine was 8.1, BUN of 69. Patient was also complaining of some pain secondary to uremic pericarditis and patient does have pericardial friction rub as well. Patient is feeling better today after Lasix and since he is urinating the patient is being continued on Lasix. Patient did not receive dialysis yet. PermCath was placed yesterday evening as patient was in OR because of which I was unable to evaluate the patient yesterday evening. Patient denied any nausea, vomiting. Patient was complaining of orthopnea and did not give me any clear history of paroxysmal nocturnal dyspnea. Patient has generalized weakness and nausea and decreased p.o. intake, all of which are uremic symptoms. REVIEW OF SYSTEMS: CONSTITUTIONAL: No fever, no malaise, no fatigue. HEENT: No recent visual problems or hearing problems. Denied any sore throat. CARDIOVASCULAR: As described in HPI. RESPIRATORY: As described HPI. GASTROINTESTINAL: No diarrhea, no nausea, no vomiting, no abdominal pain. Normoactive bowel sounds. NEUROLOGICAL: No headaches, no weakness, no numbness. HEMATOLOGICAL: Denies any bleeding or petechiae. GENITOURINARY: Denies any burning micturition, frequency, or urgency. MUSCULOSKELETAL/RHEUMATOLOGICAL: Denies any joint pain, swelling, or any muscle pain. ENDOCRINE: Denies any polyuria or polydipsia. The rest of the 14 point review of systems is negative. PAST MEDICAL HISTORY: Chronic kidney disease, type 1 diabetes mellitus, diabetic nephropathy, hyperlipidemia, hypertension, retinal detachment in the past, peripheral vascular disease, C. difficile colitis in the past, MRSA in the past, colonoscopy, amputation of the left great toe. HOME MEDICATIONS: 1. Pravachol. 2. Cymbalta. 3. [place]. 4. Abilify. 5. Cardizem. 6. Procrit. 7. Iron. 8. Zaroxolyn. 9. Vitamin D. 10. Insulin. 11. Prilosec. 12. Coreg. 13. Lasix. ALLERGIES: Allergic to LIPITOR and COZAAR. SOCIAL HISTORY: The patient denied any smoking. Denied any alcohol abuse or any drug abuse. FAMILY HISTORY: Significant for hypertension. Father at age 53 from cerebrovascular accident. PHYSICAL EXAMINATION: VITAL SIGNS: Temperature 97.3, pulse of 87, respiratory rate of 18, blood pressure 125/66, saturating at 94% on room air. GENERAL: The patient is alert and oriented x3. HEENT: Pupils are round and equally reacting to light. EOMI. No scleral icterus. No conjunctival pallor. Normocephalic, atraumatic. No pharyngeal erythema. No thyromegaly. CARDIOVASCULAR: S1 and S2 present. No murmurs, rubs, or gallops. LUNG EXAMINATION: Bibasilar crackles were heard. Fairly good air entry into bilateral lungs matute. CHEST: Right chest has PermCath in place which is postsurgically packed. ABDOMEN: Soft, nontender, nondistended, normoactive bowel sounds. No palpable organomegaly. MUSCULOSKELETAL: No joint swelling or deformity. EXTREMITIES: No cyanosis, clubbing, or pedal edema. Right arm has a surgical scar after his recent fistula creation, which has not matured yet. NEUROLOGICAL: Gross neurological examination did not reveal any focal deficits. SKIN: No rashes. SKIN: No rashes. LABORATORY DATA: CBC, comprehensive metabolic profile are abnormal for low hemoglobin of 7.2. I ordered a ferritin level on him and iron level. BNP is 12,300. Hemoglobin A1c of 10.9. Phosphorus 7.9, calcium 7.9. Patient probably will need ( ). Bicarbonate of 20. BUN 69, creatinine of 8.10. ASSESSMENT AND PLAN: 1. Acute hypoxic respiratory failure secondary to pulmonary edema, which is again secondary to nephrotic syndrome and fluid retention. Patient had hemodialysis catheter placed and patient will receive Lasix with good urine output. 2. Chronic kidney disease, stage V end-stage renal disease. Patient probably will be permanently hemodialysis dependent. Patient has received PermCath will undergo dialysis today and tomorrow after which patient may need renal biopsy. 3. Uremic pericarditis ( ) Patient did have a pericardial friction rub during systole, which this uremic pericarditis is expected to improve with hemodialysis. 4. Anemia of chronic disease or anemia of chronic kidney disease,. I will obtain a ferritin level at this point of time. The patient is on colony stimulating factor for anemia of chronic kidney disease. 5. Hypertension. 6. Hyperlipidemia. 7. Gastroesophageal reflux disease. 8. Peripheral vascular disease 9. Dyslipidemia. 10. Hyperphosphatemia secondary to metabolic bone disease. Patient will need phosphate binders, probably ( ) considering his ( ) calcium, the decision of phosphate binder will be left to Dr. Charles. Patient's primary care physician is Dr. Sachin Blair.
--- NOTE | 2016-10-19 13:44 | P.PN ---
Subjective Patient is seen in follow-up for chronic any disease stage V. He underwent a permacath placement this admission. He is scheduled to undergo first treatment of hemodialysis today. Currently resting in bed. Denies any chest pain or shortness of breath. He has been voiding. No vomiting or diarrhea. Vital signs are stable. General: The patient appeared well nourished and normally developed. HEENT: Head exam is unremarkable. Neck is without jugular venous distension. LUNGS: Lungs are clear to auscultation and percussion. Breath sounds decreased. HEART: Rate and Rhythm are regular. First and second heart sounds normal. No murmurs, rubs or gallops. ABDOMEN: Abdominal exam reveals normal bowel sounds. Non-tender and non- distended. No evidence of peritonitis. EXTREMITITES: No clubbing, cyanosis, or edema. Objective - Vital Signs Vital signs: Vital Signs Temp 97.3 F L 10/19/16 07:00 Pulse 87 10/19/16 07:00 Resp 18 10/19/16 07:00 BP 125/66 10/19/16 07:00 Pulse Ox 94 L 10/19/16 07:00 Intake & Output 10/18/16 10/19/16 10/19/16 18:59 06:59 18:59 Intake Total 125 120 Output Total 1000 Balance -875 120 Weight 97.522 kg Intake: IV 125 Oral 120 Output: Urine 1000 Other: Voiding Method Urinal # Voids 1 - Labs CBC & Chem 7: 10/18/16 09:55 10/18/16 09:55 Labs: Abnormal Lab Results - Last 24 Hours (Table) 10/18/16 10/18/16 10/18/16 Range/Units 14:00 17:56 18:14 POC Glucose (mg/dL) 55 L 55 L (75-99) mg/dL Phosphorus (2.5-4.5) mg/dL Iron (49-181) ug/dL TIBC (261-462) ug/dL % Saturation (20-50) % Urine Protein 3+ H (Negative) Urine Glucose (UA) 2+ H (Negative) Urine Blood Small H (Negative) Urine Mucus Rare H (None) /hpf 10/18/16 10/19/16 10/19/16 Range/Units 20:46 07:07 10:45 POC Glucose (mg/dL) 178 H 274 H (75-99) mg/dL Phosphorus 8.1 H* (2.5-4.5) mg/dL Iron 32 L (49-181) ug/dL TIBC 214 L (261-462) ug/dL % Saturation 15.0 L (20-50) % Urine Protein (Negative) Urine Glucose (UA) (Negative) Urine Blood (Negative) Urine Mucus (None) /hpf 10/19/16 Range/Units 12:22 POC Glucose (mg/dL) 359 H (75-99) mg/dL Phosphorus (2.5-4.5) mg/dL Iron (49-181) ug/dL TIBC (261-462) ug/dL % Saturation (20-50) % Urine Protein (Negative) Urine Glucose (UA) (Negative) Urine Blood (Negative) Urine Mucus (None) /hpf Assessment and Plan Plan: Assessment: #1. Chronic kidney disease stage V likely secondary to diabetic kidney disease. Underwent permacath placement this admission and is scheduled for first treatment of hemodialysis today. He has also undergone AV fistula surgery creation in his right arm. He has undergone kidney biopsy in the past which was suggestive of diabetic kidney disease however tissue specimen was inadequate. #2. Uremic pericarditis. #3. Anemia of chronic kidney disease. Iron deficiency present. #4. Elevated light chains noted on blood work done as an outpatient. #5. Hyperphosphatemia secondary to chronic kidney disease. Plan: Hemodialysis today with goal 1-2 L ultrafiltration. Will repeat another treatment tomorrow. Start PhosLo with meals. Ferrlecit 125 mg IV daily for 3 days. First dose today. Will schedule for repeat kidney biopsy next week.
[2016-10-19] MEDS: SODIUM FERRIC GLUCONAT-SUCROSE 125 MG in SODIUM CHLORIDE 0.9% 100 ML IVPB SCH (15:01)
[2016-10-19 16:56] LABS: Glucose,Whole Blood 378 mg/dL (75-99)
[2016-10-19] MEDS: CALCIUM ACETATE 667 MG CAP PO SCH (17:16)
[2016-10-19] MEDS: DILTIAZEM CD 180 MG CAP.ER.24H PO SCH (20:42)
[2016-10-19 20:54] LABS: Glucose,Whole Blood 201 mg/dL (75-99)
[2016-10-19] MEDS: PANTOPRAZOLE 40 MG TABLET PO SCH (21:01)
[2016-10-19] MEDS: ARIPiprazole 10 MG TAB PO SCH (21:01)
[2016-10-19] MEDS: MULTIVITAMINS, THERA 1 EACH TAB PO SCH (21:01)
[2016-10-19] MEDS: DULoxetine HCL 60 MG CAPSULE.DR PO SCH (21:01)
[2016-10-19] MEDS: PRAVASTATIN SODIUM 40 MG TAB PO SCH (21:01)
[2016-10-19] MEDS ORDERED: HEPARIN SODIUM,PORCINE 5,000 UNIT/ML 1 ML VIAL ONE (21:30)
[2016-10-19 21:35] LABS: Hepatitis B Surface Ag Index 0.04
[2016-10-20] MEDS: hydrALAZINE HCL 20 MG/ML 1 ML VIAL IVP PRN ×2 (01:03→23:00)
[2016-10-20] MEDS: HYDROcodone/APAP 5-325MG 1 EACH TAB PO PRN ×3 (03:40→23:01)
[2016-10-20 06:59] LABS: Glucose,Whole Blood 410 mg/dL (75-99)
[2016-10-20] MEDS: INSULIN LISPRO (humaLOG) 300 UNIT/3 ML VIAL SQ SCH (08:08)
[2016-10-20] MEDS: FUROSEMIDE 20 MG TAB PO SCH ×2 (08:08→16:11)
[2016-10-20] MEDS: FERROUS SULFATE 325 MG TAB PO SCH (08:08)
[2016-10-20] MEDS: CALCIUM ACETATE 667 MG CAP PO SCH ×3 (08:08→18:21)
[2016-10-20] MEDS: CARVEDILOL 12.5 MG TAB PO SCH ×2 (08:08→18:21)
[2016-10-20] MEDS: METOLAZONE 5 MG TAB PO SCH (08:08)
[2016-10-20 09:46] LABS: Calcium 7.8 mg/dL (8.4-10.2); Potassium 4.3 mmol/L (3.5-5.1)
[2016-10-20] MEDS ORDERED: INSULIN PUMP TARGET GLUCOSE 1 EACH MISC MISCELLANE PRN (10:43)
[2016-10-20] MEDS ORDERED: INSULIN PUMP BASAL RATES 1 EACH MISC MISCELLANE PRN (10:43)
[2016-10-20] MEDS ORDERED: INSPUCOR MISCELLANE PRN (10:43)
[2016-10-20] MEDS ORDERED: INSULIN LISPRO (humaLOG) 300 UNIT/3 ML VIAL SQ PRN (10:43)
[2016-10-20] MEDS ORDERED: INSULIN PUMP ACTIVE INSULIN 1 EACH MISC MISCELLANE PRN (10:43)
[2016-10-20 12:01] LABS: Glucose,Whole Blood 534 mg/dL (75-99)
[2016-10-20 12:01] LABS: Glucose,Whole Blood 494 mg/dL (75-99)
[2016-10-20 12:32] LABS: Basophils % (A) 1 %; CHCM 30.1; Eosinophils # (A) 0.4 k/uL (0-0.7); Eosinophils % (A) 6 %; HDW 3.13; Hypochromasia Marked; Luc # (Auto) 0.18; Luc % (Auto) 2; Lymphocytes # (A) 1.6 k/uL (1.0-4.8); Lymphocytes % (A) 22 %; MCH 27.6 pg (25.0-35.0); MCHC 30.6 g/dL (31.0-37.0); Mean Platelet Volume 8.4; Monocytes # (A) 0.6 k/uL (0-1.0); Monocytes % (A) 8 %; Neutrophils # (A) 4.7 k/uL (1.3-7.7); Neutrophils % (A) 62 %; RBC 2.88 m/uL (4.30-5.90); RDW 15.2 % (11.5-15.5); WBC 7.5 k/uL (3.8-10.6)
[2016-10-20 12:44] LABS: MCV 90.3 fL (80.0-100.0)
[2016-10-20] MEDS: INSULIN PUMP MEAL BOLUS 1 UNIT MISC MISCELLANE SCH ×3 (13:29→21:43)
--- NOTE | 2016-10-20 15:14 | PN ---
Patient is seen for follow-up for end-stage renal disease. He has been started on dialysis this admission. He wishes to be discharged and have the kidney biopsy done as outpatient since it will not been done anyways over the weekend. Patient states he is feeling better today. On examination, blood pressure was elevated 168/99, heart rate 96 per minute. He is afebrile. Examination of the heart S1 and S2. Examination of the lungs: Bilateral breath sounds are heard. ABDOMEN: Soft, nontender. Examination of lower extremities shows improvement in edema, chronic skin changes are noted. Edema is still present. About 1+ bilaterally. Labs show sodium 132, potassium 4.3. Hemoglobin 8.0 g/dL. ASSESSMENT: 1. End-stage renal disease; started on hemodialysis this admission. 2. Pericarditis, status post hemodialysis. We will dialyze him again today and then patient can be discharged with plans for follow-up dialysis as outpatient. 3. Anemia. No active bleeding noted, maintained on Aranesp. I would like to avoid transfusion as the patient is young and he will most likely be having renal transplant. Therefore, we want to avoid antibodies development. 4. Volume overload, currently improved. PLAN: Hemodialysis today. Patient can be discharged today. We will follow him as outpatient for dialysis.
[2016-10-20] MEDS: SODIUM FERRIC GLUCONAT-SUCROSE 125 MG in SODIUM CHLORIDE 0.9% 100 ML IVPB SCH (16:11)
[2016-10-20] MEDS ORDERED: HEPARIN SODIUM,PORCINE 5,000 UNIT/ML 1 ML VIAL ONE (17:00)
[2016-10-20 17:02] LABS: Glucose,Whole Blood 314 mg/dL (75-99)
[2016-10-20] MEDS: PRAVASTATIN SODIUM 40 MG TAB PO SCH (20:59)
[2016-10-20] MEDS: ARIPiprazole 10 MG TAB PO SCH (20:59)
[2016-10-20] MEDS: DULoxetine HCL 60 MG CAPSULE.DR PO SCH (20:59)
[2016-10-20] MEDS: DILTIAZEM CD 180 MG CAP.ER.24H PO SCH (20:59)
[2016-10-20] MEDS: PANTOPRAZOLE 40 MG TABLET PO SCH (20:59)
[2016-10-20] MEDS: MULTIVITAMINS, THERA 1 EACH TAB PO SCH (20:59)
[2016-10-20 21:36] LABS: Glucose,Whole Blood 321 mg/dL (75-99)
[2016-10-21 00:07] VITALS: PULSE 84
[2016-10-21 02:17] LABS: Glucose,Whole Blood 301 mg/dL (75-99)
[2016-10-21 07:18] LABS: Glucose,Whole Blood 227 mg/dL (75-99)
[2016-10-21 07:38] VITALS: BP 158/84; RESP 16; TEMP 98.3
[2016-10-21] MEDS: INSULIN PUMP MEAL BOLUS 1 UNIT MISC MISCELLANE SCH ×2 (07:40→13:02)
[2016-10-21] MEDS: CALCIUM ACETATE 667 MG CAP PO SCH ×2 (07:43→13:04)
[2016-10-21] MEDS: METOLAZONE 5 MG TAB PO SCH (07:43)
[2016-10-21] MEDS: FUROSEMIDE 20 MG TAB PO SCH (07:43)
[2016-10-21] MEDS: CARVEDILOL 12.5 MG TAB PO SCH (07:43)
[2016-10-21] MEDS: FERROUS SULFATE 325 MG TAB PO SCH (07:44)
--- NOTE | 2016-10-21 09:10 | P.PN ---
Subjective Principal diagnosis: Doing well. Will have HD today. Objective - Vital Signs Vital signs: Vital Signs Temp 98.3 F 10/21/16 07:00 Pulse 84 10/21/16 07:00 Resp 16 10/21/16 08:00 BP 158/84 10/21/16 07:00 Pulse Ox 96 10/21/16 07:00 Intake & Output 10/20/16 10/21/16 10/21/16 18:59 06:59 18:59 Intake Total 0 Output Total 1999 Balance -1999 920 Weight 98 kg Intake: Oral 0 Output: Other 1999 Other: Voiding Method Toilet Toilet Toilet Urinal Urinal Urinal # Voids 1 1 - Constitutional General appearance: Present: no acute distress - Respiratory Respiratory: bilateral: CTA - Cardiovascular Rhythm: regular Heart sounds: normal: S1, S2 - Peripheral edema leg Peripheral Edema: bilateral: Trace - Gastrointestinal General gastrointestinal: Present: soft - Labs CBC & Chem 7: 10/20/16 08:26 10/20/16 08:26 Labs: Abnormal Lab Results - Last 24 Hours (Table) 10/20/16 10/20/16 10/20/16 Range/Units 08:26 08:26 11:58 RBC 2.88 L (4.30-5.90) m/uL Hgb 8.0 L (13.0-17.5) gm/dL Hct 26.0 L (39.0-53.0) % MCHC 30.6 L (31.0-37.0) g/dL Sodium 132 L (137-145) mmol/L Carbon Dioxide 16 L (22-30) mmol/L BUN 58 H (9-20) mg/dL Creatinine 7.19 H* (0.66-1.25) mg/dL Glucose 424 H (74-99) mg/dL POC Glucose (mg/dL) 494 H (75-99) mg/dL Calcium 7.8 L (8.4-10.2) mg/dL 10/20/16 10/20/16 10/20/16 Range/Units 12:00 17:01 21:32 RBC (4.30-5.90) m/uL Hgb (13.0-17.5) gm/dL Hct (39.0-53.0) % MCHC (31.0-37.0) g/dL Sodium (137-145) mmol/L Carbon Dioxide (22-30) mmol/L BUN (9-20) mg/dL Creatinine (0.66-1.25) mg/dL Glucose (74-99) mg/dL POC Glucose (mg/dL) 534 H 314 H 321 H (75-99) mg/dL Calcium (8.4-10.2) mg/dL 10/21/16 10/21/16 Range/Units 02:11 07:17 RBC (4.30-5.90) m/uL Hgb (13.0-17.5) gm/dL Hct (39.0-53.0) % MCHC (31.0-37.0) g/dL Sodium (137-145) mmol/L Carbon Dioxide (22-30) mmol/L BUN (9-20) mg/dL Creatinine (0.66-1.25) mg/dL Glucose (74-99) mg/dL POC Glucose (mg/dL) 301 H 227 H (75-99) mg/dL Calcium (8.4-10.2) mg/dL Assessment and Plan Plan: Assessment: #1. Chronic kidney disease stage V has now progress to ESRD --Will have HD today. Outpatient dialysis is arranged --OK to d/c after HD. #2. Uremic pericarditis. --Improved. #3. Anemia of chronic kidney disease. #4. Hyperphosphatemia secondary to chronic kidney disease.
[2016-10-21] MEDS: HYDROcodone/APAP 5-325MG 1 EACH TAB PO PRN (09:22)
--- NOTE | 2016-10-21 09:41 | DS ---
DATE OF ADMISSION: 10/18/2016 DATE OF DISCHARGE: 36 -year-old with chronic kidney disease came in uremia and uremic pericarditis and patient was initiated on hemodialysis. Patient received right -sided Permacath and patient will receive dialysis today as well and patient is cleared for discharge. The patient will be discharged today. Patient is anemic, but patient is on liver transplant list. Unless it is absolutely necessary, we are not going to transfuse. Repeat hemoglobin is 8.0. Patient was seen and examined on the day of discharge. Vital signs stable. PHYSICAL EXAMINATION: GENERAL: The patient is alert and oriented x3, not in any acute distress. Well developed, well nourished. HEENT: Pupils are round and equally reacting to light. EOMI. No scleral icterus. No conjunctival pallor. Normocephalic, atraumatic. No pharyngeal erythema. No thyromegaly. CARDIOVASCULAR: S1 and S2 present. No murmurs, rubs, or gallops. PULMONARY: Chest is clear to auscultation, no wheezing or crackles. ABDOMEN: Soft, nontender, nondistended, normoactive bowel sounds. No palpable organomegaly. MUSCULOSKELETAL: No joint swelling or deformity. EXTREMITIES: No cyanosis, clubbing, or pedal edema. NEUROLOGICAL: Gross neurological examination did not reveal any focal deficits. SKIN: No rashes. FINAL DIAGNOSIS(ES): 1. Acute hypoxic respiratory failure secondary to pulmonary edema, which is again secondary to nephrotic syndrome and fluid retention. Patient was initiated on hemodialysis, the patient is feeling much better. 2. Chronic kidney disease actually end stage renal disease, hemodialysis-dependent. Patient still makes urine. 3. Uremic pericarditis. 4. Anemia of chronic kidney disease. 5. Hypertension. 6. Hyperlipidemia. 7. Gastroesophageal reflux disease. 8. Peripheral vascular disease. 9. Hyperlipidemia. 10. ( ) secondary to metabolic bone disease. Patient was started on calcium carbonate, for that. The patient was initiated on hemodialysis. Patient will be discharged today. Follow with nephrology as scheduled. Patient is receiving IV iron supplementation because of ferritin which is in the 60. Please refer to my depart summary for further details of discharge medication. Patient will follow with Dr. Sachin Llamas october at 2:00 p.m. Activity as tolerated. Dr. Sarkar as scheduled. Cardiac renal and diabetic 1800 calorie diet. Spent greater than 35 minutes in total discharge process.
[2016-10-21 11:55] LABS: Glucose,Whole Blood 209 mg/dL (75-99)
[2016-10-21] MEDS: SODIUM FERRIC GLUCONAT-SUCROSE 125 MG in SODIUM CHLORIDE 0.9% 100 ML IVPB SCH (13:04)
[2016-10-21] MEDS ORDERED: DARBEPOETIN ALFA 40 MCG/0.4 ML SYRINGE SQ SCH (14:00)
--- NOTE | 2016-10-21 21:59 | DS ---
DATE OF ADMISSION: 10/18/2016 DATE OF DISCHARGE: 10/21/2016 Patient was discharged yesterday. As Nephrology wanted to do one more day of dialysis, patient ended up staying in the hospital. Please consider my yesterday discharge summary as progress note and please refer to that discharge summary for further details of today's discharge.
[2016-10-22] MEDS ORDERED: DARBEPOETIN ALFA 40 MCG/0.4 ML SYRINGE SQ SCH (09:00)
== END 2016-10-21 14:23 | disposition home health service (06) | DRG 698 ==
LOC: EC 09:11 → 4MS4W 11:17
PROVIDERS: ADMIT Internal Medicine; ATTEND Internal Medicine
PROC: 05HM33Z Insertion of Infusion Device into Right Internal Jugular Vein, Percutaneous Approach (ICD-10-PCS; principal; 2016-10-18 16:30)
PROC: 5A1D60Z (ICD-10-PCS; 2016-10-18 16:30)
DX: E10.22 Type 1 diabetes mellitus with diabetic chronic kidney disease (principal); J96.01 Acute respiratory failure with hypoxia; I13.2 Hypertensive heart and chronic kidney disease with heart failure and with stage 5 chronic kidney disease, or end stage renal disease; N18.6 End stage renal disease; I32 Pericarditis in diseases classified elsewhere; E88.89 Other specified metabolic disorders; I31.9 Disease of pericardium, unspecified; Z76.82 Awaiting organ transplant status; E10.21 Type 1 diabetes mellitus with diabetic nephropathy; D63.1 Anemia in chronic kidney disease; E61.1 Iron deficiency; E78.5 Hyperlipidemia, unspecified; H54.7 Unspecified visual loss; I50.9 Heart failure, unspecified; I73.9 Peripheral vascular disease, unspecified; K21.9 Gastro-esophageal reflux disease without esophagitis; N04.9 Nephrotic syndrome with unspecified morphologic changes; Z79.4 Long term (current) use of insulin; Z82.49 Family history of ischemic heart disease and other diseases of the circulatory system; Z83.3 Family history of diabetes mellitus; Z86.14 Personal history of Methicillin resistant Staphylococcus aureus infection; Z86.19 Personal history of other infectious and parasitic diseases; Z87.11 Personal history of peptic ulcer disease; Z99.2 Dependence on renal dialysis; Z88.8 Allergy status to other drugs, medicaments and biological substances
CPT/HCPCS: 36558; 71010; 71020; 76937; 77001; 80048; 80053; 81001; 82728; 83036; 83540; 83550; 83735; 83880; 84100; 85025; 85610; 85730; 86850; 86900; 86901; 87340; 90935; 93005; 99285

== ENCOUNTER 2016-10-29 23:17 | Inpatient (IN) | payer MEDICARE, OTHER ==
[2016-10-30] MEDS ORDERED: SODIUM CHLORIDE 0.9% 1,000 ML IV SCH (01:00)
[2016-10-30 01:02] LABS: Glucose,Whole Blood >600 mg/dL (75-99)
[2016-10-30 01:07] LABS: Basophils % (A) 1 %; CH 27.2; CHCM 31.7; Eosinophils # (A) 0.3 k/uL (0-0.7); Eosinophils % (A) 5 %; HDW 3.56; HGB 8.2 gm/dL (13.0-17.5); Hypochromasia Moderate; Luc # (Auto) 0.16; Luc % (Auto) 3; Lymphocytes % (A) 19 %; MCH 27.4 pg (25.0-35.0); MCHC 31.7 g/dL (31.0-37.0); MCV 86.3 fL (80.0-100.0); Monocytes # (A) 0.4 k/uL (0-1.0); Monocytes % (A) 8 %; Neutrophils # (A) 3.7 k/uL (1.3-7.7); Neutrophils % (A) 66 %; Poikilocytosis Slight; RBC 3.01 m/uL (4.30-5.90); RDW 14.9 % (11.5-15.5); WBC 5.6 k/uL (3.8-10.6); WBC (Perox) 4.81
[2016-10-30 01:13] LABS: INR 0.9 (<1.1); Partial Thromboplastin Time 24.1 sec (22.0-30.0); Prothrombin Time 9.4 sec (9.0-12.0)
[2016-10-30 01:14] LABS: Anion Gap 11 mmol/L; Blood Urea Nitrogen 62 mg/dL (9-20); Calcium 7.9 mg/dL (8.4-10.2); Carbon Dioxide 21 mmol/L (22-30); Chloride 87 mmol/L (98-107); Magnesium 2.5 mg/dL (1.6-2.3); Phosphorous 6.1 mg/dL (2.5-4.5); Potassium 3.7 mmol/L (3.5-5.1)
[2016-10-30 01:19] VITALS: BMI 29.7
[2016-10-30 01:21] LABS: Non-African American GFR(MDRD) 12 (>60 ml/min/1.73 sqM)
[2016-10-30 01:25] LABS: Glucose 703 mg/dL (74-99); Sodium 119 mmol/L (137-145)
[2016-10-30 02:20] LABS: Glucose,Whole Blood 573 mg/dL (75-99)
[2016-10-30] MEDS: INSULIN REGULAR 100 UNIT in SODIUM CHLORIDE 0.9% 100 ML IV SCH ×2 (02:49→10:30)
[2016-10-30] MEDS ORDERED: FUROSEMIDE 10 MG/ML 4 ML VIAL IV STA (03:50)
[2016-10-30] MEDS ORDERED: HYDROcodone/APAP 5-325MG 1 EACH TAB PO PRN (03:58)
[2016-10-30] MEDS ORDERED: D5-0.45% NACL WITH KCL 20MEQ/L 1,000 ML IV SCH (04:00)
[2016-10-30 04:17] LABS: Glucose,Whole Blood 382 mg/dL (75-99)
[2016-10-30] MEDS: SODIUM CHLORIDE 0.9% 1,000 ML IV SCH ×3 (04:18→16:32)
[2016-10-30] MEDS: hydrALAZINE HCL 20 MG/ML 1 ML VIAL IVP PRN ×2 (04:42→13:48)
[2016-10-30 05:03] LABS: Basophils % (A) 1 %; CH 27.7; CHCM 33.3; Eosinophils # (A) 0.3 k/uL (0-0.7); Eosinophils % (A) 6 %; HCT 23.1 % (39.0-53.0); HDW 3.54; HGB 7.3 gm/dL (13.0-17.5); Hypochromasia Slight; Luc # (Auto) 0.15; Luc % (Auto) 3; Lymphocytes # (A) 1.2 k/uL (1.0-4.8); Lymphocytes % (A) 23 %; MCH 26.6 pg (25.0-35.0); MCHC 31.8 g/dL (31.0-37.0); MCV 83.6 fL (80.0-100.0); Mean Platelet Volume 8.2; Monocytes # (A) 0.4 k/uL (0-1.0); Monocytes % (A) 8 %; Neutrophils # (A) 3.1 k/uL (1.3-7.7); Neutrophils % (A) 59 %; Poikilocytosis Slight; RBC 2.76 m/uL (4.30-5.90); RDW 15.2 % (11.5-15.5); WBC 5.1 k/uL (3.8-10.6); WBC (Perox) 4.92
[2016-10-30 05:12] LABS: Phosphorous 5.8 mg/dL (2.5-4.5); Potassium 3.4 mmol/L (3.5-5.1)
[2016-10-30 05:19] LABS: Glucose,Whole Blood 347 mg/dL (75-99)
[2016-10-30 05:39] LABS: Appearance,Urine Clear (Clear); Bilirubin,Urine Negative (Negative); Glucose,Urine (UA) 4+ (Negative); Ketones,Urine Negative (Negative); Leukocyte Esterase,Urine Negative (Negative); Nitrite,Urine Negative (Negative); PH, Urine 6.5 (5.0-8.0); Particle Count 697; Protein,Urine 2+ (Negative); RBC,Urine 2 /hpf (0-5); Specific Gravity,Urine 1.002 (1.001-1.035); UA Billing (MACRO vs. MICRO) MICRO; Urobilinogen,Urine <2.0 mg/dL (<2.0); WBC,Urine 2 /hpf (0-5)
[2016-10-30 06:17] LABS: Glucose,Whole Blood 276 mg/dL (75-99)
[2016-10-30] MEDS ORDERED: NALOXONE 0.4 MG/ML 1 ML VIAL IV PRN (06:28)
[2016-10-30 07:03] LABS: Glucose,Whole Blood 241 mg/dL (75-99)
[2016-10-30] MEDS ORDERED: PANTOPRAZOLE 40 MG TABLET PO SCH (07:30)
[2016-10-30 08:06] LABS: Glucose,Whole Blood 186 mg/dL (75-99)
[2016-10-30 09:12] LABS: Glucose,Whole Blood 155 mg/dL (75-99)
[2016-10-30 09:55] LABS: Glucose,Whole Blood 141 mg/dL (75-99)
[2016-10-30] MEDS ORDERED: INSULIN PUMP BASAL RATES 1 EACH MISC MISCELLANE PRN (09:56)
[2016-10-30] MEDS ORDERED: INSULIN PUMP TARGET GLUCOSE 1 EACH MISC MISCELLANE PRN (09:56)
[2016-10-30] MEDS ORDERED: INSULIN LISPRO (humaLOG) 300 UNIT/3 ML VIAL SQ PRN (09:56)
[2016-10-30] MEDS ORDERED: INSPUCOR MISCELLANE PRN (09:56)
[2016-10-30] MEDS ORDERED: INSULIN PUMP ACTIVE INSULIN 1 EACH MISC MISCELLANE PRN (09:56)
[2016-10-30 10:11] LABS: Reticulocyte % 2.6 % (0.5-2.0)
[2016-10-30 10:28] LABS: Anion Gap 10 mmol/L; Blood Urea Nitrogen 66 mg/dL (9-20); Carbon Dioxide 24 mmol/L (22-30); Chloride 94 mmol/L (98-107); Glucose 135 mg/dL (74-99); Phosphorous 5.7 mg/dL (2.5-4.5); Potassium 3.5 mmol/L (3.5-5.1); Sodium 128 mmol/L (137-145)
[2016-10-30 10:31] LABS: Glucose,Whole Blood 141 mg/dL (75-99)
[2016-10-30 10:32] LABS: Non-African American GFR(MDRD) 11 (>60 ml/min/1.73 sqM)
[2016-10-30 10:53] LABS: Iron 21 ug/dL (49-181)
[2016-10-30 11:02] LABS: % Iron Saturation 10.2 % (20-50); Total Iron Binding Capacity 205 ug/dL (261-462)
[2016-10-30 11:07] LABS: Glucose,Whole Blood 160 mg/dL (75-99)
[2016-10-30 11:42] LABS: Vitamin B12 >1000 pg/mL (239-931)
[2016-10-30 11:44] LABS: Hemoglobin A1C 10.5 % (4.2-6.1)
[2016-10-30 12:07] LABS: Glucose,Whole Blood 133 mg/dL (75-99)
[2016-10-30 12:36] LABS: Magnesium 2.4 mg/dL (1.6-2.3); Phosphorous 5.8 mg/dL (2.5-4.5)
[2016-10-30 13:19] LABS: Glucose,Whole Blood 131 mg/dL (75-99)
[2016-10-30] MEDS: CARVEDILOL 12.5 MG TAB PO SCH ×2 (13:29→17:22)
[2016-10-30] MEDS: HYDROcodone/APAP 5-325MG 1 EACH TAB PO PRN ×2 (13:29→23:15)
[2016-10-30] MEDS: Insulin Aspart (For Pump) 100 UNIT/ML VIAL SQ-PUMP SCH (13:30)
[2016-10-30] MEDS: INSULIN PUMP MEAL BOLUS 1 UNIT MISC MISCELLANE SCH ×2 (13:46→17:22)
[2016-10-30 14:25] LABS: Glucose,Whole Blood 135 mg/dL (75-99)
[2016-10-30] MEDS: CALCIUM ACETATE 667 MG CAP PO SCH ×2 (14:25→17:22)
[2016-10-30 15:49] LABS: Anion Gap 8 mmol/L; Blood Urea Nitrogen 38 mg/dL (9-20); Calcium 7.7 mg/dL (8.4-10.2); Carbon Dioxide 27 mmol/L (22-30); Chloride 95 mmol/L (98-107); Glucose 156 mg/dL (74-99); Non-African American GFR(MDRD) 18 (>60 ml/min/1.73 sqM); Phosphorous 3.6 mg/dL (2.5-4.5); Potassium 3.4 mmol/L (3.5-5.1); Sodium 130 mmol/L (137-145)
[2016-10-30] MEDS ORDERED: POTASSIUM CHLORIDE ER 20 MEQ TAB.ER PO STA (16:01)
[2016-10-30 16:21] LABS: Hepatitis B Surface Ag Index 0.07
[2016-10-30] MEDS: SODIUM FERRIC GLUCONAT-SUCROSE 125 MG in SODIUM CHLORIDE 0.9% 100 ML IVPB SCH (16:29)
[2016-10-30 16:39] LABS: Hepatitis B Surface Antibody Negative (Negative)
[2016-10-30] MEDS ORDERED: HEPARIN SODIUM,PORCINE 5,000 UNIT/ML 1 ML VIAL ONE (16:43)
--- NOTE | 2016-10-30 17:10 | CONS ---
DATE OF CONSULTATION: 10/30/2016 REASON FOR CONSULTATION: End-stage renal disease HISTORY OF PRESENT ILLNESS: Patient is a 36-year-old white male with insulin-dependent diabetes recently started on dialysis for worsening chronic kidney disease, any eventually end-stage renal disease. He was admitted to the hospital for severe hyperglycemia with a blood sugar of 703 and he was nonketotic. His insulin pump had been malfunctioning. Currently patient is maintained on IV fluids at 150 mL an hour. He is normally maintained on dialysis at [facility] on a Sunday, Sunday, Sunday schedule. Patient has underlying anemia with significant iron deficiency. He has received IV iron previously. He is currently being evaluated by hematology as well. PAST MEDICAL HISTORY: CKD, most likely secondary to diabetic nephropathy with evidence of light chains noted in the urine as outpatient with plans for kidney biopsy, to rule out any other underlying glomerular nephritis. Patient also has a history of chronic kidney disease bone mineral disorder, hypertension, volume overload. PAST SURGICAL HISTORY: Recent AV fistula and Perm-A-Cath placement. Medications are noted. SOCIAL HISTORY: Negative for smoking, drug abuse or alcohol abuse. REVIEW OF SYSTEMS: As per HPI. Other systems negative for fever, chills, nausea, vomiting, abdominal pain or diarrhea. On examination, blood pressure is 119/84, previously his blood pressure was up at 181/92 with heart rate of 93 per minute. He is afebrile. Examination of the heart S1 and S2. Examination of the lungs: Bilateral breath sounds are heard. ABDOMEN: Soft, nontender. Examination of lower extremities shows edema 2+ bilaterally. COUPLES THERAPIST exam is grossly intact. Labs show sodium 130, potassium 3.4, BUN 38, serum creatinine 3.72. ASSESSMENT: 1. End-stage renal disease on hemodialysis on a Sunday, Sunday, Sunday schedule. The patient will be dialyzed today. 2. Volume overload, decrease IV fluids and increase UF as tolerated. 3. Hypokalemia, being replaced. Current IV fluids have added potassium and once the insulin drip is discontinued this should also improve. 4. Anemia with severe iron deficiency as outpatient. 5. Chronic kidney disease bone mineral disorder. Phosphorus 5.8. 6. Hyponatremia associated with severe hypoglycemia currently improved. PLAN: Continue IV iron, scheduled for kidney biopsy while the patient is in the hospital. Repeat dialysis in a.m. Expect blood pressure to improve with improved volume status. Thank you for this consultation. Will continue to follow the patient with you during his hospitalization.
[2016-10-30 17:26] LABS: Glucose,Whole Blood 201 mg/dL (75-99)
--- NOTE | 2016-10-30 18:13 | P.CNPUL ---
History of Present Illness Consult date: 10/30/16 Chief complaint: Hyperglycemia, renal failure History of present illness: 35-year-old male patient, type 1 diabetes mellitus who has been maintained on insulin pump in addition to an incisional disease and currently the patient on hemodialysis through a permacath as his left upper extremities AV fistula matures. The patient also has previous history of MRSA infection of the left foot status post amputation of the left great toe secondary to chronic infections. The patient comes in yesterday to the hospital because of significantly elevated blood sugars. Apparently his insulin pump was not functioning properly and this led to poor blood sugar control. Note that his blood sugar essentially has not been under good control and he has had previous high levels of HbA1c. His complications are essentially complications of diabetes mellitus. The patient came into the hospital with a sugars of above 600, his initial bicarb level was at 27 and the patient did not have any anion gap. He was placed on a nitroglycerin drip with his blood sugar was adequately treated and lowered and currently is back on his insulin pump. He will be also receiving hemodialysis today knowing that he has had significant third spacing and volume overload. The ultimate goal today is to Haemophilus her this patient for a total of 3.5 L. He is tired and fatigued. No change in mental status. No fever has been reported. He has underlying chronic anemia and has received previous IV iron infusion by nephrology. No chest pain. No cough or sputum production. No other significant events over the past 24 hours. Review of Systems Review of system was done and the positive findings are almost above in history of present illness. He has signs of fluid overload with significant edema in lower extremities bilaterally. Past Medical History Past Medical History: Diabetes Mellitus, Eye Disorder, GI Bleed, Hyperlipidemia , Hypertension, Renal Disease Additional Past Medical History / Comment(s): IDDM type I, diabetic since he was age 21, insulin pump since 2009, DKA, hiatal hernia, R eye retinal detachment with surgery-vision decreased, incisional disease on hemodialysis. The patient is seeing hemodialysis 3 times a week through a permacath and he has an AV fistula in his left upper extremity. Other medical problems are chronic anemia, previous history of GI bleed secondary to peptic ulcer disease, volume overload, chronic kidney disease bone marrow disorder, peripheral vascular disease, osteomyelitis, diabetic foot ulcers and amputations History of Any Multi-Drug Resistant Organisms: MRSA Date of last positivie culture/infection: 12/20/11 MDRO Source:: Left Foot ( site per nursing history Additional Past Surgical History / Comment(s): renal needle bx, 2008 left great toe amp and 2013 2nd to 5th left foot toes amputated. right chest mediport x2 with removal in 2010 and 2012. right eye retina reattachment sx 03/2015. EGD/ colonoscopy. Past Anesthesia/Blood Transfusion Reactions: No Reported Reaction Past Psychological History: Depression Additional Psychological History / Comment(s): Pt resides with his mother. He uses a cane at times. He drives. Smoking Status: Never smoker Past Alcohol Use History: Rare Additional Past Alcohol Use History / Comment(s): Patient states he is a lifelong nonsmoker. He denies any medical marijuana, marijuana, street drug use. He states he drinks alcohol on a rare basis. Past Drug Use History: None Reported - Past Family History Mother Family Medical History: Hypertension Father Family Medical History: CVA/TIA, Diabetes Mellitus, Hypertension Additional Family Medical History / Comment(s): Father is at the age of 53yrs from a CVA. Medications and Allergies Home Medications Medication Instructions Recorded Confirmed Type DULoxetine HCL [Cymbalta] 120 mg PO HS 05/22/15 10/30/16 History Hydrocodone/Acetaminophen [[place] 1 tab PO Q6HR PRN 12/26/15 10/30/16 History 5-325] Pravastatin Sodium [Pravachol] 40 mg PO HS 12/26/15 10/30/16 History ARIPiprazole [Abilify] 10 mg PO HS 09/07/16 10/30/16 History Diltiazem Cd [Cardizem CD] 180 mg PO HS 09/07/16 10/30/16 History Folic Acid/Multivit-Min/Lutein 1 tab PO HS 09/07/16 10/30/16 History [Therapeutic-M Tablet] Omeprazole [PriLOSEC] 40 mg PO HS 09/07/16 10/30/16 History Insulin Aspart (For Pump) [NovoLOG 1.4 - 1.6 units SQ DIRECTED 09/22/1610/30 History (For Pump)] Epoetin [place] [Procrit] 1 unit INJ Q7D PRN 10/18/16 10/30/16 History Ergocalciferol [Vitamin D2 50,000 unit PO QMONTH 10/18/16 10/30/16 History (DRISDOL)] Ferrous Sulfate [Feosol] 325 mg PO DAILY 10/18/16 10/30/16 History Metolazone [Zaroxolyn] 5 mg PO DAILY 10/18/16 10/30/16 History Allergies Allergy/AdvReac Type Severity Reaction Status Date / Time atorvastatin calcium AdvReac Nausea & Verified 10/18/16 09:49 [From Lipitor] Vomiting losartan potassium AdvReac Nausea & Verified 10/18/16 09:49 [From Cozaar] Vomiting Physical Exam Vitals: Vital Signs Temp Pulse Resp BP BP Pulse Ox 10/30/16 17:00 94 13 159/77 95 10/30/16 16:30 94 14 109/58 97 10/30/16 16:00 89 14 109/58 97 10/30/16 15:30 86 14 124/68 95 10/30/16 15:22 16 10/30/16 15:00 90 16 124/68 96 10/30/16 14:30 100 14 119/84 97 10/30/16 14:00 99 12 198/92 98 10/30/16 13:30 93 12 181/92 98 10/30/16 13:00 93 11 L 191/102 95 10/30/16 12:30 92 12 171/87 98 10/30/16 12:00 98.5 F 90 14 176/91 97 10/30/16 11:30 90 14 180/101 95 10/30/16 11:00 90 12 167/91 90 L 10/30/16 10:30 89 11 L 170/97 94 L 10/30/16 10:00 87 4 L 162/87 95 10/30/16 09:30 86 14 172/83 96 10/30/16 09:00 87 12 167/91 96 10/30/16 08:30 92 18 179/93 96 10/30/16 08:00 98.4 F 94 11 L 166/83 97 10/30/16 07:30 87 11 L 177/88 95 10/30/16 07:00 88 17 167/89 93 L 10/30/16 06:30 86 15 163/80 93 L 10/30/16 06:00 85 13 175/85 94 L 10/30/16 05:30 88 12 181/84 95 10/30/16 05:00 88 15 175/96 93 L 10/30/16 04:30 82 14 175/93 93 L 10/30/16 04:00 98 F 82 13 188/94 92 L 10/30/16 03:30 83 12 187/104 94 L 10/30/16 03:00 83 11 L 194/106 92 L 10/30/16 02:49 82 14 98 10/30/16 00:46 18 180/94 96 Intake and Output 10/30/16 10/30/16 10/30/16 06:59 14:59 22:59 Intake Total 727.478 638.830 310 Output Total 575 4700 1000 Balance 152.478 -4061.170 -690 Intake: IV 360 60 0.9 20 60 D5-0.45% NaCl with KCl 340 20Meq/l 1,000 ml @ 50 mls /hr IV .Q20H [facility] Rx#: [id number] Intake, IV Titration 727.478 278.830 Amount Insulin Regular 100 unit 27.478 78.830 In Sodium Chloride 0.9% 100 ml @ 0.1 UNITS/KG/HR 10.61 mls/hr IV .Q9H32M [facility] Rx#:[id number] Sodium Chloride 0.9% 1, 300 000 ml @ 150 mls/hr IV . Q6H40M [facility] Rx#:[id number] Sodium Chloride 0.9% 1, 400 200 000 ml @ 200 mls/hr IV . Q5H [facility] Rx#:[id number] Oral 250 Output: Urine 575 1200 1000 Other 3500 Other: Voiding Method Urinal Urinal Urinal # Voids 1 # Bowel Movements 1 1 Weight 105.1 kg 105.1 kg Patient Weight 10/31/16 06:59 Weight 105.1 kg Head exam was generally normal. There was no scleral icterus or corneal arcus. Mucous membranes were moist.Neck was supple and without jugular venous distension, thyromegaly, or carotid bruits. Carotids were easily palpable bilaterally. There was no adenopathy. Lung sounds are diminished bilaterally otherwise clear.Cardiac exam revealed the PMI to be normally situated and sized. The rhythm was regular and no extrasystoles were noted during several minutes of auscultation. The first and second heart sounds were normal and physiologic splitting of the second heart sound was noted. There were no murmurs , rubs, clicks, or gallops.Abdominal exam revealed normal bowel sounds. The abdomen was soft, non-tender, and without masses, organomegaly, or appreciable enlargement of the abdominal aorta. Extremities reveal +1 edema bilaterally lower extremities in addition to amputation of the toes on the left foot. Neurologically is awake alert and following commands and answering questions appropriately. Results - Laboratory Findings CBC and BMP: 10/30/16 04:43 10/30/16 15:21 PT/INR, D-dimer PT 9.4 sec (9.0-12.0) 10/30/16 00:54 INR 0.9 (<1.1) 10/30/16 00:54 Abnormal lab findings: Abnormal Labs 10/30/16 10/30/16 10/30/16 00:50 00:54 00:54 RBC 3.01 L Hgb 8.2 L Hct 26.0 L Retic Count Sodium 119 L* Potassium Chloride 87 L Carbon Dioxide 21 L BUN 62 H Creatinine 5.50 H* Glucose 703 H* POC Glucose (mg/dL) >600 H Hemoglobin A1c Osmolality 314 H Calcium 7.9 L Phosphorus 6.1 H Magnesium 2.5 H Iron TIBC % Saturation Vitamin B12 Urine Protein Urine Glucose (UA) Urine Blood 10/30/16 10/30/16 10/30/16 00:54 02:11 04:15 RBC Hgb Hct Retic Count Sodium Potassium Chloride Carbon Dioxide BUN Creatinine Glucose POC Glucose (mg/dL) 573 H 382 H Hemoglobin A1c 10.5 H Osmolality Calcium Phosphorus Magnesium Iron TIBC % Saturation Vitamin B12 Urine Protein Urine Glucose (UA) Urine Blood 10/30/16 10/30/16 10/30/16 04:43 04:43 05:17 RBC 2.76 L Hgb 7.3 L Hct 23.1 L Retic Count Sodium 126 L Potassium 3.4 L Chloride 92 L Carbon Dioxide BUN 62 H Creatinine 5.55 H* Glucose 361 H POC Glucose (mg/dL) 347 H Hemoglobin A1c Osmolality Calcium Phosphorus 5.8 H Magnesium Iron TIBC % Saturation Vitamin B12 Urine Protein Urine Glucose (UA) Urine Blood 10/30/16 10/30/16 10/30/16 05:27 06:15 07:02 RBC Hgb Hct Retic Count Sodium Potassium Chloride Carbon Dioxide BUN Creatinine Glucose POC Glucose (mg/dL) 276 H 241 H Hemoglobin A1c Osmolality Calcium Phosphorus Magnesium Iron TIBC % Saturation Vitamin B12 Urine Protein 2+ H Urine Glucose (UA) 4+ H Urine Blood Small H 10/30/16 10/30/16 10/30/16 08:06 09:11 09:48 RBC Hgb Hct Retic Count Sodium 128 L Potassium Chloride 94 L Carbon Dioxide BUN 66 H Creatinine 5.71 H* Glucose 135 H POC Glucose (mg/dL) 186 H 155 H Hemoglobin A1c Osmolality Calcium Phosphorus 5.7 H Magnesium Iron 21 L TIBC 205 L % Saturation 10.2 L Vitamin B12 >1000 H Urine Protein Urine Glucose (UA) Urine Blood 10/30/16 10/30/16 10/30/16 09:48 09:48 09:53 RBC Hgb Hct Retic Count 2.6 H Sodium Potassium Chloride Carbon Dioxide BUN Creatinine Glucose POC Glucose (mg/dL) 141 H Hemoglobin A1c Osmolality Calcium Phosphorus 5.8 H Magnesium 2.4 H Iron TIBC % Saturation Vitamin B12 Urine Protein Urine Glucose (UA) Urine Blood 10/30/16 10/30/16 10/30/16 10:29 11:05 12:06 RBC Hgb Hct Retic Count Sodium Potassium Chloride Carbon Dioxide BUN Creatinine Glucose POC Glucose (mg/dL) 141 H 160 H 133 H Hemoglobin A1c Osmolality Calcium Phosphorus Magnesium Iron TIBC % Saturation Vitamin B12 Urine Protein Urine Glucose (UA) Urine Blood 10/30/16 10/30/16 10/30/16 13:17 14:23 15:21 RBC Hgb Hct Retic Count Sodium 130 L Potassium 3.4 L Chloride 95 L Carbon Dioxide BUN 38 H Creatinine 3.72 H Glucose 156 H POC Glucose (mg/dL) 131 H 135 H Hemoglobin A1c Osmolality Calcium 7.7 L Phosphorus Magnesium Iron TIBC % Saturation Vitamin B12 Urine Protein Urine Glucose (UA) Urine Blood 10/30/16 17:24 RBC Hgb Hct Retic Count Sodium Potassium Chloride Carbon Dioxide BUN Creatinine Glucose POC Glucose (mg/dL) 201 H Hemoglobin A1c Osmolality Calcium Phosphorus Magnesium Iron TIBC % Saturation Vitamin B12 Urine Protein Urine Glucose (UA) Urine Blood Assessment and Plan Plan: Impression 1 acute hyperglycemia without evidence of diabetic ketoacidosis. The patient is treated with insulin drip and currently his blood sugars under better control 2 End stage renal disease with hemodialysis 3 times a week, Sunday/Sunday/ Sunday 3 left upper extremity AV fistula, maturing 4 volume overload, secondary to renal failure 5 chronic anemia 6 hypertension 7 hyperlipidemia 8 peripheral vascular disease 9 osteomyelitis 10 previous amputation of the left toes/ left foot. Plan Proceed with hemodialysis. Switch this patient is insulin pump. Resume outpatient medications. May transferred outside the intensive care unit at a later stage of his condition remains stable. Nephrology will be seeing this patient. We'll continue to follow.
[2016-10-30 19:45] LABS: Glucose,Whole Blood 217 mg/dL (75-99)
[2016-10-30] MEDS: DULoxetine HCL 60 MG CAPSULE.DR PO SCH (20:24)
[2016-10-30] MEDS: PANTOPRAZOLE 40 MG TABLET PO SCH (20:25)
[2016-10-30] MEDS: DILTIAZEM CD 180 MG CAP.ER.24H PO SCH (20:25)
[2016-10-30] MEDS: PRAVASTATIN SODIUM 40 MG TAB PO SCH (20:25)
[2016-10-30] MEDS: ARIPiprazole 10 MG TAB PO SCH (20:25)
[2016-10-30 21:38] LABS: Calcium 7.8 mg/dL (8.4-10.2); Potassium 3.9 mmol/L (3.5-5.1)
--- NOTE | 2016-10-30 22:52 | HP ---
DATE OF ADMISSION: 10/30/2016 CHIEF COMPLAINT: Hyperglycemia and sent from other hospital. HISTORY OF PRESENT ILLNESS: Mr. Howell is a 36-year-old male with a known history of type 1 diabetes mellitus on insulin pump, uncontrolled, recently started on hemodialysis due to chronic kidney disease, history of methicillin-resistant Staphylococcus aureus left foot infection with amputation of the toes, was sent to the hospital where the patient had hyperglycemia. ( ) at home. Patient initially presented to the other hospital and was transferred to [facility] for further evaluation and dialysis. Patient was recently started on hemodialysis due to ESRD and fluid overload. Patient had currently undergoing hemodialysis. Patient was found to have a blood sugar around 700 when he came to the hospital with marginality of 314. Patient was also having hyponatremia this is most likely secondary to hyperglycemia. Currently the patient is on insulin drip, which has been changed back to his home dose. Apparently patient found that his insulin pump needle has been bent and he is actually not getting any insulin supply through the pump. Currently the patient denies any complaints of chest pressure with no fever. No chills. No recent illnesses. Patient was last discharged from the hospital on 10/20/2016. Otherwise, the patient currently denied any complaints now. All other complete review of systems negative except as above. Past medical history includes: 1. ESRD on hemodialysis recently started. 2. Uncontrolled diabetes mellitus with HbA1c of 10.5 now. 3. Anemia of chronic disease. 4. Hypertension. 5. Hyperlipidemia. 6. History of gastrointestinal bleed. 7. Right eye retinal detachment history. 8. Left foot secondary to methicillin-resistant Staphylococcus aureus. PAST SURGICAL HISTORY: Left great toe amputation in 2008, second to fifth left foot toe amputation in 2013, right chest Mediport placement with remove in 2010 and 2012. Right eye retinal ( ) surgery in March 2015 and EGD. PSYCHOSOCIAL HISTORY: Depression. SOCIAL HISTORY: Patient never a smoker. Denied any drugs or IVDU, drinks on rare occasional basis. FAMILY HISTORY: Mother had hypertension. Father had CVA/TIA and hypertension. Current home medications include: 1. Cymbalta. 2. [place] 5. 3. Pravastatin. 4. Coreg. 5. Abilify. 6. Cardizem CD. 7. Folic acid. 8. Omeprazole. 9. Lasix 60 b.i.d. 10. Insulin pump. 11. ( ) alpha. 12. Ergocalciferol. 13. Ferrous sulfate. 14. Metalazone. 15. Calcium acetate. PHYSICAL EXAMINATION: A 36-year-old male lying in the bed comfortably, awake, alert, oriented, x3 appears to be in mild distress at this time. VITALS: Blood pressure is 124/68. Pulse is 90, respiration 16, temperature afebrile, pulse ox 98% on room air. HEENT: Atraumatic, normocephalic. Neck is supple. No JVD. CVS: S1, S2 heard. No murmurs, no gallop, no rub. LUNGS: Bilateral air entry is present. No wheezing. No crackles. Nonlabored breathing. ABDOMEN: Soft, nontender. Bowel sounds are present. MORTGAGE OPERATIONS MANAGER: Awake, alert, oriented, x3. No focal deficits. EXTREMITIES: Trace edema. Pulses palpable bilaterally. Left toe amputation present. PSYCHIATRIC: Cooperative. LABORATORY DATA: WBC 5.6, hemoglobin 8.2, platelets 219, INR 0.9. Sodium 119, potassium 3.7, chloride 87, bicarb is 21, BUN 62, creatinine 5.5. Blood sugar was greater than 703 on admission, HbA1C 10.5, magnesium 2.5 and currently blood sugars are coming down to 130 to 160. ASSESSMENT AND PLAN: 1. Hyperglycemia due to malfunction of insulin pump. 2. Hyperglycemic hyperosmolar state currently on insulin drip and changed back to his insulin pump as blood sugars are fairly controlled now. 3. Hyponatremia with component of pseudohyponatremia. 4. Hypokalemia. 5. Uncontrolled diabetes mellitus, type I, HbA1C 10.5. 6. End stage renal disease, recently started on hemodialysis. 7. Hypertension. 8. Hyperlipidemia. 9. History of gastrointestinal bleed. 10. History of right eye retinal detachment. 11. History of left foot toe amputations secondary to methicillin-resistant Staphylococcus aureus infections. 12. Deep venous thrombosis prophylaxis with heparin subcu. 13. Uncontrolled hypertension. DISCUSSION AND PLAN: The patient will be continued on his insulin pump as sugars are coming down now. We will continue with the hemodialysis as per Nephrology. Will follow up labs in the a.m. and will change his IV fluids to KVO. Continue with home blood pressure medications and antidepressants. Further recommendations based on clinical course. Pulmonary and nephrology has been consulted.
--- NOTE | 2016-10-30 23:44 | P.CONS ---
History of Present Illness - Reason for Consult Consult date: 10/30/16 Chronic anemia - History of Present Illness The patient is a 36-year-old gentleman with multiple medical problems. These include history of insulin-dependent diabetes and chronic kidney disease. In addition he has a history of left foot infection due to MRSA , that has resulted in partial" of the left foot and multiple courses of antibiotics. The patient was admitted to the hospital this time because of blood sugars greater than 600 , and acidosis. Since admission, hemoglobin has been in the 7-8 range. Other RBC indices, as well as white cells and platelets have been normal. Consult was therefore placed for further evaluation and recommendations Labs, and records going back to 05/25 were reviewed. From 05/25-12/24, the patient's hemoglobin was mostly in the 10-11 range. In 12/24, apparently there patient had a GI bleed and underwent an EGD which was negative for any active bleeding. Biopsied showed no evidence of H. pylori, or malignancy. Since 08/25 , hemoglobin has been mostly in the 7-8 range. Other labs show marked increase in his creatinine from 08/25 onwards, leading to hemodialysis initiation earlier this month. The patient did have a kidney biopsy in 09/26. The biopsy material was somewhat scant and difficult to make definitive diagnosis. 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 The case was discussed with nephrology. The patient has had anemia workup done by them. Protein electrophoresis was negative, and both light chains were elevated. However per Dr. Charles, there was a balance between the 2 light chains with elevation of ratio. The patient has been receiving exogenous erythropoietin, as well as IV iron in the outpatient setting. A most recent bone scan, done in late 2015, had shown no evidence of osteomyelitis no cellulitis had been present. The patient is currently not on antibiotics. Review of Systems Constitutional: Reports fatigue, Reports lethargy, Reports weakness Eyes: denies blurred vision, denies pain Ears: deny: decreased hearing, ear discharge, earache, tinnitus Ears, nose, mouth and throat: Denies headache, Denies sore throat Cardiovascular: Reports dyspnea on exertion Respiratory: Reports dyspnea Gastrointestinal: Reports nausea ([place] to be due to gastroparesis. This has improved significantly, since mid 2015) Genitourinary: Reports as per HPI (History of progressive renal failure leading to ESRD on hemodialysis currently. Patient still makes urine) Musculoskeletal: Reports as per HPI (Multiple infections involving the left foot , leading to partial amputation), Reports muscle weakness Integumentary: Denies pruritus, Denies rash Neurological: Reports weakness Psychiatric: Denies anxiety, Denies depression Endocrine: Reports fatigue, Reports high blood sugars Hematologic/Lymphatic: Reports as per HPI Past Medical History Past Medical History: Diabetes Mellitus, Eye Disorder, GI Bleed, Hyperlipidemia , Hypertension, Renal Disease Additional Past Medical History / Comment(s): IDDM type I, diabetic since he was age 21, insulin pump since 2009, DKA, hiatal hernia, R eye retinal detachment with surgery-vision decreased, incisional disease on hemodialysis. The patient is seeing hemodialysis 3 times a week through a permacath and he has an AV fistula in his left upper extremity. Other medical problems are chronic anemia, previous history of GI bleed secondary to peptic ulcer disease, volume overload, chronic kidney disease bone marrow disorder, peripheral vascular disease, osteomyelitis, diabetic foot ulcers and amputations History of Any Multi-Drug Resistant Organisms: MRSA Year Discovered:: 12/20/11 MDRO Source:: Left Foot ( site per nursing history Additional Past Surgical History / Comment(s): renal needle bx, 2008 left great toe amp and 2013 2nd to 5th left foot toes amputated. right chest mediport x2 with removal in 2010 and 2012. right eye retina reattachment sx 03/2015. EGD/ colonoscopy. Past Anesthesia/Blood Transfusion Reactions: No Reported Reaction Past Psychological History: Depression Additional Psychological History / Comment(s): Pt resides with his mother. He uses a cane at times. He drives. Smoking Status: Never smoker Past Alcohol Use History: Rare Additional Past Alcohol Use History / Comment(s): Patient states he is a lifelong nonsmoker. He denies any medical marijuana, marijuana, street drug use. He states he drinks alcohol on a rare basis. Past Drug Use History: None Reported - Past Family History Mother Family Medical History: Hypertension Father Family Medical History: CVA/TIA, Diabetes Mellitus, Hypertension Additional Family Medical History / Comment(s): Father is at the age of 53yrs from a CVA. Medications and Allergies Home Medications Medication Instructions Recorded Confirmed Type DULoxetine HCL [Cymbalta] 120 mg PO HS 05/22/15 10/30/16 History Hydrocodone/Acetaminophen [[place] 1 tab PO Q6HR PRN 12/26/15 10/30/16 History 5-325] Pravastatin Sodium [Pravachol] 40 mg PO HS 12/26/15 10/30/16 History ARIPiprazole [Abilify] 10 mg PO HS 09/07/16 10/30/16 History Diltiazem Cd [Cardizem CD] 180 mg PO HS 09/07/16 10/30/16 History Folic Acid/Multivit-Min/Lutein 1 tab PO HS 09/07/16 10/30/16 History [Therapeutic-M Tablet] Omeprazole [PriLOSEC] 40 mg PO HS 09/07/16 10/30/16 History Insulin Aspart (For Pump) [NovoLOG 1.4 - 1.6 units SQ DIRECTED 09/22/1610/30 History (For Pump)] Epoetin [place] [Procrit] 1 unit INJ Q7D PRN 10/18/16 10/30/16 History Ergocalciferol [Vitamin D2 50,000 unit PO QMONTH 10/18/16 10/30/16 History (DRISDOL)] Ferrous Sulfate [Feosol] 325 mg PO DAILY 10/18/16 10/30/16 History Metolazone [Zaroxolyn] 5 mg PO DAILY 10/18/16 10/30/16 History Allergies Allergy/AdvReac Type Severity Reaction Status Date / Time atorvastatin calcium AdvReac Nausea & Verified 10/18/16 09:49 [From Lipitor] Vomiting losartan potassium AdvReac Nausea & Verified 10/18/16 09:49 [From Cozaar] Vomiting Physical Exam Vitals: Vital Signs Temp Pulse Resp BP BP Pulse Ox 10/30/16 22:00 89 9 L 120/63 95 10/30/16 21:00 93 8 L 120/63 94 L 10/30/16 20:00 99.1 F 87 16 140/81 93 L 10/30/16 19:00 87 12 133/77 94 L 10/30/16 18:00 95 14 170/85 98 10/30/16 17:30 93 14 159/77 96 10/30/16 17:00 94 13 159/77 95 10/30/16 16:30 94 14 109/58 97 10/30/16 16:00 89 14 109/58 97 10/30/16 15:30 86 14 124/68 95 10/30/16 15:22 16 10/30/16 15:00 90 16 124/68 96 10/30/16 14:30 100 14 119/84 97 10/30/16 14:00 99 12 198/92 98 10/30/16 13:30 93 12 181/92 98 10/30/16 13:00 93 11 L 191/102 95 10/30/16 12:30 92 12 171/87 98 10/30/16 12:00 98.5 F 90 14 176/91 97 10/30/16 11:30 90 14 180/101 95 10/30/16 11:00 90 12 167/91 90 L 10/30/16 10:30 89 11 L 170/97 94 L 10/30/16 10:00 87 4 L 162/87 95 10/30/16 09:30 86 14 172/83 96 10/30/16 09:00 87 12 167/91 96 10/30/16 08:30 92 18 179/93 96 10/30/16 08:00 98.4 F 94 11 L 166/83 97 10/30/16 07:30 87 11 L 177/88 95 10/30/16 07:00 88 17 167/89 93 L 10/30/16 06:30 86 15 163/80 93 L 10/30/16 06:00 85 13 175/85 94 L 10/30/16 05:30 88 12 181/84 95 10/30/16 05:00 88 15 175/96 93 L 10/30/16 04:30 82 14 175/93 93 L 10/30/16 04:00 98 F 82 13 188/94 92 L 10/30/16 03:30 83 12 187/104 94 L 10/30/16 03:00 83 11 L 194/106 92 L 10/30/16 02:49 82 14 98 10/30/16 00:46 18 180/94 96 Intake and Output 10/30/16 10/30/16 10/31/16 14:59 22:59 06:59 Intake Total 638.830 410 Output Total 4700 1000 Balance -4061.170 -590 Intake: IV 360 160 0.9 20 160 D5-0.45% NaCl with KCl 340 20Meq/l 1,000 ml @ 50 mls /hr IV .Q20H [facility] Rx#: [id number] Intake, IV Titration 278.830 Amount Insulin Regular 100 unit 78.830 In Sodium Chloride 0.9% 100 ml @ 0.1 UNITS/KG/HR 10.61 mls/hr IV .Q9H32M [facility] Rx#:[id number] Sodium Chloride 0.9% 1, 200 000 ml @ 200 mls/hr IV . Q5H [facility] Rx#:[id number] Oral 250 Output: Urine 1200 1000 Other 3500 Other: Voiding Method Urinal Urinal # Bowel Movements 1 1 Weight 105.1 kg Patient Weight 10/31/16 06:59 Weight 105.1 kg The patient was very sleepy though arousable. He was quite lethargic. It was difficult to get him to respond though his responses were appropriate. - Constitutional General appearance: no acute distress - EENT Eyes: EOMI, PERRLA ENT: hearing grossly normal, normal oropharynx - Neck Neck: no lymphadenopathy Thyroid: bilateral: normal size - Respiratory Respiratory: bilateral: CTA - Cardiovascular Rhythm: regular Heart sounds: normal: S1, S2 - Gastrointestinal General gastrointestinal: normal bowel sounds, soft - Integumentary Integumentary: normal - Neurologic Neurologic: CNII-XII intact - Musculoskeletal Right sided AV fistula Musculoskeletal: strength equal bilaterally, left sided weakness - Psychiatric Very lethargic with slow responses. Difficult to arouse. However responses are appropriate and the patient is oriented Psychiatric: A&O x's 3 Results CBC & Chem 7: 10/30/16 04:43 10/30/16 20:42 Labs: Abnormal Lab Results - Last 24 Hours (Table) 10/30/16 10/30/16 10/30/16 Range/Units 00:50 00:54 00:54 RBC 3.01 L (4.30-5.90) m/uL Hgb 8.2 L (13.0-17.5) gm/dL Hct 26.0 L (39.0-53.0) % Retic Count (0.5-2.0) % Sodium 119 L* (137-145) mmol/L Potassium (3.5-5.1) mmol/L Chloride 87 L (98-107) mmol/L Carbon Dioxide 21 L (22-30) mmol/L BUN 62 H (9-20) mg/dL Creatinine 5.50 H* (0.66-1.25) mg/dL Glucose 703 H* (74-99) mg/dL POC Glucose (mg/dL) >600 H (75-99) mg/dL Hemoglobin A1c (4.2-6.1) % Osmolality 314 H (280-301) mosm/kg Calcium 7.9 L (8.4-10.2) mg/dL Phosphorus 6.1 H (2.5-4.5) mg/dL Magnesium 2.5 H (1.6-2.3) mg/dL Iron (49-181) ug/dL TIBC (261-462) ug/dL % Saturation (20-50) % Total Protein (PEP) (6.2-8.2) g/dL Vitamin B12 (239-931) pg/mL Urine Protein (Negative) Urine Glucose (UA) (Negative) Urine Blood (Negative) 10/30/16 10/30/16 10/30/16 Range/Units 00:54 02:11 04:15 RBC (4.30-5.90) m/uL Hgb (13.0-17.5) gm/dL Hct (39.0-53.0) % Retic Count (0.5-2.0) % Sodium (137-145) mmol/L Potassium (3.5-5.1) mmol/L Chloride (98-107) mmol/L Carbon Dioxide (22-30) mmol/L BUN (9-20) mg/dL Creatinine (0.66-1.25) mg/dL Glucose (74-99) mg/dL POC Glucose (mg/dL) 573 H 382 H (75-99) mg/dL Hemoglobin A1c 10.5 H (4.2-6.1) % Osmolality (280-301) mosm/kg Calcium (8.4-10.2) mg/dL Phosphorus (2.5-4.5) mg/dL Magnesium (1.6-2.3) mg/dL Iron (49-181) ug/dL TIBC (261-462) ug/dL % Saturation (20-50) % Total Protein (PEP) (6.2-8.2) g/dL Vitamin B12 (239-931) pg/mL Urine Protein (Negative) Urine Glucose (UA) (Negative) Urine Blood (Negative) 10/30/16 10/30/16 10/30/16 Range/Units 04:43 04:43 05:17 RBC 2.76 L (4.30-5.90) m/uL Hgb 7.3 L (13.0-17.5) gm/dL Hct 23.1 L (39.0-53.0) % Retic Count (0.5-2.0) % Sodium 126 L (137-145) mmol/L Potassium 3.4 L (3.5-5.1) mmol/L Chloride 92 L (98-107) mmol/L Carbon Dioxide (22-30) mmol/L BUN 62 H (9-20) mg/dL Creatinine 5.55 H* (0.66-1.25) mg/dL Glucose 361 H (74-99) mg/dL POC Glucose (mg/dL) 347 H (75-99) mg/dL Hemoglobin A1c (4.2-6.1) % Osmolality (280-301) mosm/kg Calcium (8.4-10.2) mg/dL Phosphorus 5.8 H (2.5-4.5) mg/dL Magnesium (1.6-2.3) mg/dL Iron (49-181) ug/dL TIBC (261-462) ug/dL % Saturation (20-50) % Total Protein (PEP) (6.2-8.2) g/dL Vitamin B12 (239-931) pg/mL Urine Protein (Negative) Urine Glucose (UA) (Negative) Urine Blood (Negative) 10/30/16 10/30/16 10/30/16 Range/Units 05:27 06:15 07:02 RBC (4.30-5.90) m/uL Hgb (13.0-17.5) gm/dL Hct (39.0-53.0) % Retic Count (0.5-2.0) % Sodium (137-145) mmol/L Potassium (3.5-5.1) mmol/L Chloride (98-107) mmol/L Carbon Dioxide (22-30) mmol/L BUN (9-20) mg/dL Creatinine (0.66-1.25) mg/dL Glucose (74-99) mg/dL POC Glucose (mg/dL) 276 H 241 H (75-99) mg/dL Hemoglobin A1c (4.2-6.1) % Osmolality (280-301) mosm/kg Calcium (8.4-10.2) mg/dL Phosphorus (2.5-4.5) mg/dL Magnesium (1.6-2.3) mg/dL Iron (49-181) ug/dL TIBC (261-462) ug/dL % Saturation (20-50) % Total Protein (PEP) (6.2-8.2) g/dL Vitamin B12 (239-931) pg/mL Urine Protein 2+ H (Negative) Urine Glucose (UA) 4+ H (Negative) Urine Blood Small H (Negative) 10/30/16 10/30/16 10/30/16 Range/Units 08:06 09:11 09:48 RBC (4.30-5.90) m/uL Hgb (13.0-17.5) gm/dL Hct (39.0-53.0) % Retic Count (0.5-2.0) % Sodium 128 L (137-145) mmol/L Potassium (3.5-5.1) mmol/L Chloride 94 L (98-107) mmol/L Carbon Dioxide (22-30) mmol/L BUN 66 H (9-20) mg/dL Creatinine 5.71 H* (0.66-1.25) mg/dL Glucose 135 H (74-99) mg/dL POC Glucose (mg/dL) 186 H 155 H (75-99) mg/dL Hemoglobin A1c (4.2-6.1) % Osmolality (280-301) mosm/kg Calcium (8.4-10.2) mg/dL Phosphorus 5.7 H (2.5-4.5) mg/dL Magnesium (1.6-2.3) mg/dL Iron 21 L (49-181) ug/dL TIBC 205 L (261-462) ug/dL % Saturation 10.2 L (20-50) % Total Protein (PEP) (6.2-8.2) g/dL Vitamin B12 >1000 H (239-931) pg/mL Urine Protein (Negative) Urine Glucose (UA) (Negative) Urine Blood (Negative) 10/30/16 10/30/1610/30/17 Range/Units 09:48 09:48 09:48 RBC (4.30-5.90) m/uL Hgb (13.0-17.5) gm/dL Hct (39.0-53.0) % Retic Count 2.6 H (0.5-2.0) % Sodium (137-145) mmol/L Potassium (3.5-5.1) mmol/L Chloride (98-107) mmol/L Carbon Dioxide (22-30) mmol/L BUN (9-20) mg/dL Creatinine (0.66-1.25) mg/dL Glucose (74-99) mg/dL POC Glucose (mg/dL) (75-99) mg/dL Hemoglobin A1c (4.2-6.1) % Osmolality (280-301) mosm/kg Calcium (8.4-10.2) mg/dL Phosphorus 5.8 H (2.5-4.5) mg/dL Magnesium 2.4 H (1.6-2.3) mg/dL Iron (49-181) ug/dL TIBC (261-462) ug/dL % Saturation (20-50) % Total Protein (PEP) 4.5 L (6.2-8.2) g/dL Vitamin B12 (239-931) pg/mL Urine Protein (Negative) Urine Glucose (UA) (Negative) Urine Blood (Negative) 10/30/16 10/30/16 10/30/16 Range/Units 09:53 10:29 11:05 RBC (4.30-5.90) m/uL Hgb (13.0-17.5) gm/dL Hct (39.0-53.0) % Retic Count (0.5-2.0) % Sodium (137-145) mmol/L Potassium (3.5-5.1) mmol/L Chloride (98-107) mmol/L Carbon Dioxide (22-30) mmol/L BUN (9-20) mg/dL Creatinine (0.66-1.25) mg/dL Glucose (74-99) mg/dL POC Glucose (mg/dL) 141 H 141 H 160 H (75-99) mg/dL Hemoglobin A1c (4.2-6.1) % Osmolality (280-301) mosm/kg Calcium (8.4-10.2) mg/dL Phosphorus (2.5-4.5) mg/dL Magnesium (1.6-2.3) mg/dL Iron (49-181) ug/dL TIBC (261-462) ug/dL % Saturation (20-50) % Total Protein (PEP) (6.2-8.2) g/dL Vitamin B12 (239-931) pg/mL Urine Protein (Negative) Urine Glucose (UA) (Negative) Urine Blood (Negative) 10/30/16 10/30/16 10/30/16 Range/Units 12:06 13:17 14:23 RBC (4.30-5.90) m/uL Hgb (13.0-17.5) gm/dL Hct (39.0-53.0) % Retic Count (0.5-2.0) % Sodium (137-145) mmol/L Potassium (3.5-5.1) mmol/L Chloride (98-107) mmol/L Carbon Dioxide (22-30) mmol/L BUN (9-20) mg/dL Creatinine (0.66-1.25) mg/dL Glucose (74-99) mg/dL POC Glucose (mg/dL) 133 H 131 H 135 H (75-99) mg/dL Hemoglobin A1c (4.2-6.1) % Osmolality (280-301) mosm/kg Calcium (8.4-10.2) mg/dL Phosphorus (2.5-4.5) mg/dL Magnesium (1.6-2.3) mg/dL Iron (49-181) ug/dL TIBC (261-462) ug/dL % Saturation (20-50) % Total Protein (PEP) (6.2-8.2) g/dL Vitamin B12 (239-931) pg/mL Urine Protein (Negative) Urine Glucose (UA) (Negative) Urine Blood (Negative) 10/30/16 10/30/16 10/30/16 Range/Units 15:21 17:24 19:43 RBC (4.30-5.90) m/uL Hgb (13.0-17.5) gm/dL Hct (39.0-53.0) % Retic Count (0.5-2.0) % Sodium 130 L (137-145) mmol/L Potassium 3.4 L (3.5-5.1) mmol/L Chloride 95 L (98-107) mmol/L Carbon Dioxide (22-30) mmol/L BUN 38 H (9-20) mg/dL Creatinine 3.72 H (0.66-1.25) mg/dL Glucose 156 H (74-99) mg/dL POC Glucose (mg/dL) 201 H 217 H (75-99) mg/dL Hemoglobin A1c (4.2-6.1) % Osmolality (280-301) mosm/kg Calcium 7.7 L (8.4-10.2) mg/dL Phosphorus (2.5-4.5) mg/dL Magnesium (1.6-2.3) mg/dL Iron (49-181) ug/dL TIBC (261-462) ug/dL % Saturation (20-50) % Total Protein (PEP) (6.2-8.2) g/dL Vitamin B12 (239-931) pg/mL Urine Protein (Negative) Urine Glucose (UA) (Negative) Urine Blood (Negative) 10/30/16 Range/Units 20:42 RBC (4.30-5.90) m/uL Hgb (13.0-17.5) gm/dL Hct (39.0-53.0) % Retic Count (0.5-2.0) % Sodium 128 L (137-145) mmol/L Potassium (3.5-5.1) mmol/L Chloride 95 L (98-107) mmol/L Carbon Dioxide (22-30) mmol/L BUN 40 H (9-20) mg/dL Creatinine 4.08 H (0.66-1.25) mg/dL Glucose 212 H (74-99) mg/dL POC Glucose (mg/dL) (75-99) mg/dL Hemoglobin A1c (4.2-6.1) % Osmolality (280-301) mosm/kg Calcium 7.8 L (8.4-10.2) mg/dL Phosphorus (2.5-4.5) mg/dL Magnesium (1.6-2.3) mg/dL Iron (49-181) ug/dL TIBC (261-462) ug/dL % Saturation (20-50) % Total Protein (PEP) (6.2-8.2) g/dL Vitamin B12 (239-931) pg/mL Urine Protein (Negative) Urine Glucose (UA) (Negative) Urine Blood (Negative) Comments: bone scan report reviewed Chest x-ray: report reviewed Assessment and Plan (1) Anemia Narrative/Plan: This is normochromic, normocytic with marked progression since 08/25. The drop in the hemoglobin, corresponds to the marked increase in creatinine since 08/25. The patient's anemia is therefore felt to be multifactorial. There is definitely an element of anemia of chronic kidney disease. There is also likely anemia of inflammation, given the patient's history of multiple infections involving the left foot as well as several episodes of C. diff, up to mid 2015. There was also suspicion of upper GI bleed in 12/24, with EGD being negative at that time. His iron studies have shown relatively low ferritin for someone with chronic inflammation, at less than 100, as well as persistently low saturation. In his situation, this likely indicates iron deficiency The case was discussed extensively with the Dr. Charles. Given the somewhat abnormal light chain ratio, workup for monoclonal gammopathy as a possible cause was also desired. The PEP the and light chain results from Dr. Charles's office were reported available to us. These will be obtained and reviewed. The patient's kidney biopsy did not show any evidence of light chain deposition , but the sample was comparatively quite scant. I will therefore order workup for any possible monoclonal gammopathy, including 24-hour urine for Bence Morse protein. Additionally anemia workup with iron studies, B12, folate and hemolysis labs will also be ordered. In the meantime the patient appears to be on appropriate treatment, with IV iron as well as erythropoietin, that is being administered by the nephrology office. Status: Acute Plan: Defer to the admitting service and other consultants for management of his multiple other medical problems
[2016-10-31] MEDS: hydrALAZINE HCL 20 MG/ML 1 ML VIAL IVP PRN (01:57)
[2016-10-31 01:58] LABS: Glucose,Whole Blood 281 mg/dL (75-99)
[2016-10-31] MEDS: INSULIN PUMP MEAL BOLUS 1 UNIT MISC MISCELLANE SCH ×5 (02:07→22:26)
[2016-10-31 04:56] LABS: Glucose,Whole Blood 273 mg/dL (75-99)
[2016-10-31 05:03] LABS: Basophils % (A) 0 %; CH 27.2; CHCM 32.3; Eosinophils # (A) 0.2 k/uL (0-0.7); Eosinophils % (A) 4 %; HCT 24.8 % (39.0-53.0); HDW 3.42; HGB 7.9 gm/dL (13.0-17.5); Hypochromasia Slight; Luc # (Auto) 0.17; Luc % (Auto) 4; Lymphocytes # (A) 0.9 k/uL (1.0-4.8); Lymphocytes % (A) 20 %; MCHC 31.9 g/dL (31.0-37.0); MCV 84.8 fL (80.0-100.0); Mean Platelet Volume 7.8; Monocytes # (A) 0.3 k/uL (0-1.0); Monocytes % (A) 7 %; Neutrophils # (A) 2.9 k/uL (1.3-7.7); Neutrophils % (A) 65 %; Poikilocytosis Slight; RBC 2.93 m/uL (4.30-5.90); RDW 15.3 % (11.5-15.5); WBC 4.5 k/uL (3.8-10.6); WBC (Perox) 4.83
[2016-10-31 05:17] LABS: Calcium 7.5 mg/dL (8.4-10.2); Magnesium 2.1 mg/dL (1.6-2.3); Phosphorous 3.9 mg/dL (2.5-4.5); Potassium 3.9 mmol/L (3.5-5.1)
[2016-10-31 05:51] LABS: Glucose,Whole Blood 251 mg/dL (75-99)
[2016-10-31 07:30] LABS: Glucose,Whole Blood 260 mg/dL (75-99)
[2016-10-31] MEDS: CARVEDILOL 12.5 MG TAB PO SCH ×2 (07:31→18:03)
[2016-10-31] MEDS: HYDROcodone/APAP 5-325MG 1 EACH TAB PO PRN ×3 (07:34→23:16)
[2016-10-31] MEDS: INSULIN LISPRO (humaLOG) 300 UNIT/3 ML VIAL SQ SCH ×4 (07:34→22:25)
[2016-10-31] MEDS: CALCIUM ACETATE 667 MG CAP PO SCH ×3 (08:05→18:03)
[2016-10-31 10:52] LABS: Free Kappa Lt Chain Qnt, Serum 6.58 mg/dL (0.33 - 1.94); Kappa/Lambda Light Chain Ratio 1.72 (0.26 - 1.65)
[2016-10-31 11:42] LABS: Glucose,Whole Blood 229 mg/dL (75-99)
--- NOTE | 2016-10-31 12:47 | PN ---
Patient is seen for follow-up for end-stage renal disease. He was admitted to the hospital with severe hyperglycemia due to malfunctioning insulin pump. He continues to be volume overloaded and he is scheduled for dialysis again today. Patient states overall he is feeling better. On examination, blood pressure is 113/62, heart rate 77 per minute. He is afebrile. Examination of the heart S1 and S2. Examination of the lungs: Bilateral breath sounds are heard. Decreased breath sounds in bases. ABDOMEN: Soft, nontender. Examination of lower extremities shows edema 3+ bilaterally. CHANNEL MAN exam is grossly intact. Labs show sodium of 129, potassium 3.9, BUN 46, serum creatinine 4.6. Hemoglobin 7.9 g/dL. ASSESSMENT: 1. End-stage renal disease on hemodialysis, on a Sunday, Sunday, Sunday schedule at [place]. 2. Anemia with iron deficiency maintained on IV iron. Patient is being followed by hematology. ( ) lambda chains were also elevated although the ratio is less than 2. 3. Hypervolemic hyponatremia. Expect further improvement with dialysis. Initial hyponatremia was secondary to severe hyperglycemia. PLAN: Repeat dialysis today and we will schedule patient for kidney biopsy, as his initial biopsy did not have enough tissue specimen for electromicroscopy and immunofluorescence. Patient will be dialyzed again on Sunday. He is encouraged to increase his oral intake and we will increase ultrafiltration as tolerated today as well as in a.m.
[2016-10-31] MEDS: FERROUS SULFATE 325 MG TAB PO SCH (14:50)
[2016-10-31] MEDS: SODIUM CHLORIDE 0.9% 1,000 ML IV SCH (15:34)
[2016-10-31] MEDS: SODIUM FERRIC GLUCONAT-SUCROSE 125 MG in SODIUM CHLORIDE 0.9% 100 ML IVPB SCH (15:38)
--- NOTE | 2016-10-31 17:57 | P.PN ---
Subjective 35-year-old male patient, type 1 diabetes mellitus who has been maintained on insulin pump in addition to an incisional disease and currently the patient on hemodialysis through a permacath as his left upper extremities AV fistula matures. The patient also has previous history of MRSA infection of the left foot status post amputation of the left great toe secondary to chronic infections. The patient comes in yesterday to the hospital because of significantly elevated blood sugars. Apparently his insulin pump was not functioning properly and this led to poor blood sugar control. Note that his blood sugar essentially has not been under good control and he has had previous high levels of HbA1c. His complications are essentially complications of diabetes mellitus. The patient came into the hospital with a sugars of above 600, his initial bicarb level was at 27 and the patient did not have any anion gap. He was placed on a nitroglycerin drip with his blood sugar was adequately treated and lowered and currently is back on his insulin pump. He will be also receiving hemodialysis today knowing that he has had significant third spacing and volume overload. The ultimate goal today is to Haemophilus her this patient for a total of 3.5 L. He is tired and fatigued. No change in mental status. No fever has been reported. He has underlying chronic anemia and has received previous IV iron infusion by nephrology. No chest pain. No cough or sputum production. No other significant events over the past 24 hours. The patient is seen again today 10/31/2016 in follow-up in the intensive care unit. He is currently awake and alert in no acute distress. He has ongoing issues with hyperglycemia. He feels there is issues with his insulin pump versus the need for adjusted dosing. The music educator has been consulted. He is receiving hemodialysis again today with the plans for 3-4 L to be removed. He is continued with significant lower extremity edema and evidence of fluid overload. Current creatinine 4.60. His hemoglobin has remained stable currently at 7.9. Slightly hyponatremic at 129. Objective - Vital Signs Vital signs: Vital Signs Temp 98.2 F 10/31/16 17:21 Pulse 80 10/31/16 17:21 Resp 16 10/31/16 17:21 BP 114/67 10/31/16 17:21 Pulse Ox 98 10/31/16 17:21 Intake & Output 10/30/16 10/31/16 10/31/16 18:59 06:59 18:59 Intake Total 968.830 540 880 Output Total 5700 1200 5150 Balance -4731.170 -660 -4270 Weight 105.1 kg 107.2 kg 97.749 kg Intake: IV 440 240 180 0.9 100 240 180 D5-0.45% NaCl with KCl 340 20Meq/l 1,000 ml @ 50 mls /hr IV .Q20H KARLEY Rx#: [id number] Intake, IV Titration 278.830 Amount Insulin Regular 100 unit 78.830 In Sodium Chloride 0.9% 100 ml @ 0.1 UNITS/KG/HR 10.61 mls/hr IV .Q9H32M KARLEY Rx#:[id number] Sodium Chloride 0.9% 1, 200 000 ml @ 200 mls/hr IV . Q5H KARLEY Rx#:[id number] Oral 250 300 700 Output: Urine 2200 1200 850 Other 3500 4300 Other: Voiding Method Urinal Urinal Urinal # Bowel Movements 1 - Exam Head exam was generally normal. There was no scleral icterus or corneal arcus. Mucous membranes were moist.Neck was supple and without jugular venous distension, thyromegaly, or carotid bruits. Carotids were easily palpable bilaterally. There was no adenopathy. Lung sounds are diminished bilaterally otherwise clear.Cardiac exam revealed the PMI to be normally situated and sized. The rhythm was regular and no extrasystoles were noted during several minutes of auscultation. The first and second heart sounds were normal and physiologic splitting of the second heart sound was noted. There were no murmurs , rubs, clicks, or gallops.Abdominal exam revealed normal bowel sounds. The abdomen was soft, non-tender, and without masses, organomegaly, or appreciable enlargement of the abdominal aorta. Extremities reveal +1 edema bilaterally lower extremities in addition to amputation of the toes on the left foot. Neurologically is awake alert and following commands and answering questions appropriately. - Labs CBC & Chem 7: 10/31/16 04:52 10/31/16 04:52 Labs: Abnormal Lab Results - Last 24 Hours (Table) 10/30/16 10/30/16 10/30/16 Range/Units 09:48 09:48 19:43 RBC (4.30-5.90) m/uL Hgb (13.0-17.5) gm/dL Hct (39.0-53.0) % Lymphocytes # (1.0-4.8) k/uL Sodium (137-145) mmol/L Chloride (98-107) mmol/L BUN (9-20) mg/dL Creatinine (0.66-1.25) mg/dL Glucose (74-99) mg/dL POC Glucose (mg/dL) 217 H (75-99) mg/dL Calcium (8.4-10.2) mg/dL Total Protein (PEP) 4.5 L (6.2-8.2) g/dL Free [place] LC, Quant 6.58 H (0.33 - 1.94) mg/dL Free Lambda LC, Quant 3.82 H (0.57 - 2.63) mg/dL Free [place]/Lambda Ratio 1.72 H (0.26 - 1.65) 10/30/16 10/31/16 10/31/16 Range/Units 20:42 01:56 04:52 RBC 2.93 L (4.30-5.90) m/uL Hgb 7.9 L (13.0-17.5) gm/dL Hct 24.8 L (39.0-53.0) % Lymphocytes # 0.9 L (1.0-4.8) k/uL Sodium 128 L (137-145) mmol/L Chloride 95 L (98-107) mmol/L BUN 40 H (9-20) mg/dL Creatinine 4.08 H (0.66-1.25) mg/dL Glucose 212 H (74-99) mg/dL POC Glucose (mg/dL) 281 H (75-99) mg/dL Calcium 7.8 L (8.4-10.2) mg/dL Total Protein (PEP) (6.2-8.2) g/dL Free [place] LC, Quant (0.33 - 1.94) mg/dL Free Lambda LC, Quant (0.57 - 2.63) mg/dL Free [place]/Lambda Ratio (0.26 - 1.65) 10/31/16 10/31/16 10/31/16 Range/Units 04:52 04:54 05:48 RBC (4.30-5.90) m/uL Hgb (13.0-17.5) gm/dL Hct (39.0-53.0) % Lymphocytes # (1.0-4.8) k/uL Sodium 129 L (137-145) mmol/L Chloride 97 L (98-107) mmol/L BUN 46 H (9-20) mg/dL Creatinine 4.60 H (0.66-1.25) mg/dL Glucose 259 H (74-99) mg/dL POC Glucose (mg/dL) 273 H 251 H (75-99) mg/dL Calcium 7.5 L (8.4-10.2) mg/dL Total Protein (PEP) (6.2-8.2) g/dL Free [place] LC, Quant (0.33 - 1.94) mg/dL Free Lambda LC, Quant (0.57 - 2.63) mg/dL Free [place]/Lambda Ratio (0.26 - 1.65) 10/31/16 10/31/16 Range/Units 07:29 11:40 RBC (4.30-5.90) m/uL Hgb (13.0-17.5) gm/dL Hct (39.0-53.0) % Lymphocytes # (1.0-4.8) k/uL Sodium (137-145) mmol/L Chloride (98-107) mmol/L BUN (9-20) mg/dL Creatinine (0.66-1.25) mg/dL Glucose (74-99) mg/dL POC Glucose (mg/dL) 260 H 229 H (75-99) mg/dL Calcium (8.4-10.2) mg/dL Total Protein (PEP) (6.2-8.2) g/dL Free [place] LC, Quant (0.33 - 1.94) mg/dL Free Lambda LC, Quant (0.57 - 2.63) mg/dL Free [place]/Lambda Ratio (0.26 - 1.65) Assessment and Plan Plan: Impression 1 acute hyperglycemia without evidence of diabetic ketoacidosis. The patient is treated with insulin drip and currently his blood sugars under better control 2 End stage renal disease with hemodialysis 3 times a week, Sunday/Sunday/ Sunday 3 left upper extremity AV fistula, maturing 4 volume overload, secondary to renal failure 5 chronic anemia 6 hypertension 7 hyperlipidemia 8 peripheral vascular disease 9 osteomyelitis 10 previous amputation of the left toes/ left foot. Plan The patient was seen and evaluated by Dr. Best. We will have the music educator work with the patient and his insulin pump. 4. He is currently stable from the pulmonary and critical care standpoint and could be transferred out of the intensive care unit later today after dialysis. We will continue to follow make further recommendations based on his clinical status.
[2016-10-31 18:08] LABS: Glucose,Whole Blood 209 mg/dL (75-99)
[2016-10-31] MEDS: Insulin Aspart (For Pump) 100 UNIT/ML VIAL SQ-PUMP SCH (18:11)
[2016-10-31 19:00] LABS: Calcium 7.8 mg/dL (8.4-10.2); Magnesium 2.2 mg/dL (1.6-2.3); Phosphorous 3.4 mg/dL (2.5-4.5); Potassium 4.3 mmol/L (3.5-5.1)
[2016-10-31 21:19] LABS: Glucose,Whole Blood 209 mg/dL (75-99)
[2016-10-31] MEDS: ARIPiprazole 10 MG TAB PO SCH (22:24)
[2016-10-31] MEDS: DULoxetine HCL 60 MG CAPSULE.DR PO SCH (22:24)
[2016-10-31] MEDS: PRAVASTATIN SODIUM 40 MG TAB PO SCH (22:25)
[2016-10-31] MEDS: PANTOPRAZOLE 40 MG TABLET PO SCH (22:25)
[2016-10-31] MEDS: DILTIAZEM CD 180 MG CAP.ER.24H PO SCH (22:35)
[2016-10-31] MEDS ORDERED: CALCIUM ACETATE 667 MG CAP PO PRN (22:48)
[2016-11-01 02:13] LABS: Glucose,Whole Blood 175 mg/dL (75-99)
[2016-11-01] MEDS: INSULIN LISPRO (humaLOG) 300 UNIT/3 ML VIAL SQ SCH ×3 (02:16→12:53)
[2016-11-01 07:28] LABS: Glucose,Whole Blood 117 mg/dL (75-99)
[2016-11-01 08:03] VITALS: BP 137/75; PULSE 71; RESP 18; TEMP 97
[2016-11-01] MEDS: CARVEDILOL 12.5 MG TAB PO SCH (08:31)
[2016-11-01] MEDS: CALCIUM ACETATE 667 MG CAP PO SCH ×2 (08:31→12:53)
[2016-11-01] MEDS: INSULIN PUMP MEAL BOLUS 1 UNIT MISC MISCELLANE SCH ×2 (08:32→12:53)
[2016-11-01 08:34] LABS: Basophils % (A) 1 %; CH 27.6; CHCM 31.7; Eosinophils # (A) 0.4 k/uL (0-0.7); Eosinophils % (A) 8 %; HCT 26.3 % (39.0-53.0); HDW 3.31; HGB 8.2 gm/dL (13.0-17.5); Hypochromasia Moderate; Luc # (Auto) 0.17; Luc % (Auto) 4; Lymphocytes # (A) 2.2 k/uL (1.0-4.8); Lymphocytes % (A) 46 %; MCH 27.3 pg (25.0-35.0); MCHC 31.2 g/dL (31.0-37.0); MCV 87.6 fL (80.0-100.0); Mean Platelet Volume 8.3; Monocytes # (A) 0.3 k/uL (0-1.0); Monocytes % (A) 6 %; Neutrophils # (A) 1.7 k/uL (1.3-7.7); Neutrophils % (A) 37 %; RDW 15.5 % (11.5-15.5); WBC 4.7 k/uL (3.8-10.6); WBC (Perox) 4.66
--- NOTE | 2016-11-01 08:40 | PN ---
DATE OF SERVICE: 10/31/2016 INTERVAL HISTORY: Mr. Howell is a 36-year-old male with known history of type 1 diabetes mellitus on insulin pump and recently started hemodialysis and recent renal biopsy with adequate sample. Was admitted to the hospital with hyperglycemic state, due to insulin pump bent needle. Currently pressure is controlled now. Patient was in the ICU and was maintained on insulin drip. Patient otherwise being followed by Nephrology for hemodialysis and blood pressure is fairly controlled now. Currently, patient denied any complaints of chest pain, short of breath. Able to sit in a chair. Transferred to general medical floor. REVIEW OF SYSTEMS: CONSTITUTIONAL: No fever. No chills. RESPIRATORY: No sputum production. CARDIOVASCULAR: No chest pain or short of breath. ABDOMEN: No nausea, vomiting or abdominal pain. GENITOURINARY: Negative. ENDOCRINE: Negative. PSYCHIATRIC: Negative. SKIN: Negative. All other 14-point review of systems negative except as above. Current medications include Abilify, PhosLo, Coreg, Cardizem, Cymbalta, vitamin D2, ferric sodium gluconate, Feosol, insulin pump, Narcan, Protonix, Pravachol. PHYSICAL EXAMINATION: A 36-year-old male sitting in the chair, comfortably, awake, alert, oriented x3, appears to be in no apparent distress. VITALS: Blood pressure is 122/67, pulse is 82, respirations 14, temperature afebrile, pulse ox 96% on room air. HEENT: Atraumatic, normocephalic. Neck is supple. No JVD. CVS EXAM: S1, S2 heard. No murmurs, no gallop. LUNGS: Bilateral air entry is present. No wheezing. No crackles. Nonlabored breathing. Abdomen is soft, nontender. Bowel sounds are present. SHOES HAND SEWER: Alert and oriented x3. No focal deficit. EXTREMITIES: No edema. Pulses palpable bilaterally, no clubbing or cyanosis. PSYCHIATRIC: Cooperative. LABORATORY DATA: Sodium 132, potassium 4.3, chloride 99, bicarb is 25. BUN 28, creatinine 3.6, calcium 97.8. Blood sugar is 229. IMPRESSION: 1. Hyperglycemia due to malfunction of insulin pump. 2. Hyperglycemic hyperosmolar state, was on insulin drip in the ICU. Currently back to insulin pump. 3. Hyponatremia/pseudohyponatremia, resolved. 4. Hypokalemia. 5. Uncontrolled diabetes mellitus HbA1c 10.5. 6. End-stage renal disease, recently started on hemodialysis. 7. Status post renal biopsy adequate sample recently. 8. Hypertension, uncontrolled. 9. Hyperlipidemia. 10. Gastroesophageal reflux disease. 11. History of right eye retinal detachment. 12. 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 13. Deep venous thrombosis prophylaxis with heparin subcutaneous. DISCUSSION AND PLAN: Patient will be continued on insulin pump, continue with the hemodialysis as per Nephrology. Nephrology is planning for another renal biopsy. I will continue the current management and monitor CBC as well as blood pressure medication titration and follow up closely. Further recommendations based on the clinical course.
[2016-11-01 08:59] LABS: Calcium 7.9 mg/dL (8.4-10.2); Magnesium 2.2 mg/dL (1.6-2.3); Phosphorous 4.2 mg/dL (2.5-4.5); Potassium 4.2 mmol/L (3.5-5.1)
[2016-11-01 12:12] LABS: Glucose,Whole Blood 138 mg/dL (75-99)
[2016-11-01] MEDS: FERROUS SULFATE 325 MG TAB PO SCH (12:53)
[2016-11-01] MEDS ORDERED: HEPARIN SODIUM,PORCINE 5,000 UNIT/ML 1 ML VIAL ONE (15:00)
--- NOTE | 2016-11-01 15:57 | P.PN ---
Subjective 35-year-old male patient, type 1 diabetes mellitus who has been maintained on insulin pump in addition to an incisional disease and currently the patient on hemodialysis through a permacath as his left upper extremities AV fistula matures. The patient also has previous history of MRSA infection of the left foot status post amputation of the left great toe secondary to chronic infections. The patient comes in yesterday to the hospital because of significantly elevated blood sugars. Apparently his insulin pump was not functioning properly and this led to poor blood sugar control. Note that his blood sugar essentially has not been under good control and he has had previous high levels of HbA1c. His complications are essentially complications of diabetes mellitus. The patient came into the hospital with a sugars of above 600, his initial bicarb level was at 27 and the patient did not have any anion gap. He was placed on a nitroglycerin drip with his blood sugar was adequately treated and lowered and currently is back on his insulin pump. He will be also receiving hemodialysis today knowing that he has had significant third spacing and volume overload. The ultimate goal today is to Haemophilus her this patient for a total of 3.5 L. He is tired and fatigued. No change in mental status. No fever has been reported. He has underlying chronic anemia and has received previous IV iron infusion by nephrology. No chest pain. No cough or sputum production. No other significant events over the past 24 hours. The patient is seen again today 10/31/2016 in follow-up in the intensive care unit. He is currently awake and alert in no acute distress. He has ongoing issues with hyperglycemia. He feels there is issues with his insulin pump versus the need for adjusted dosing. The diabetes educator has been consulted. He is receiving hemodialysis again today with the plans for 3-4 L to be removed. He is continued with significant lower extremity edema and evidence of fluid overload. Current creatinine 4.60. His hemoglobin has remained stable currently at 7.9. Slightly hyponatremic at 129. The patient is seen again today 11/01/2016 in follow-up. He is on the regular medical floor. He is awake and alert in no acute distress. He received dialysis again today and another 3 L was removed. He denies any worsening shortness of breath, cough or congestion. He is meeting with the insulin pump rep tomorrow to assure it is working appropriately. He is anxious to go home. Objective - Vital Signs Vital signs: Vital Signs Temp 97.0 F L 11/01/16 07:00 Pulse 71 11/01/16 07:00 Resp 18 11/01/16 07:00 BP 137/75 11/01/16 07:00 Pulse Ox 96 11/01/16 07:00 Intake & Output 10/31/16 11/01/16 11/01/16 18:59 06:59 18:59 Intake Total 880 Output Total 5150 0 Balance -4270 0 Weight 97.749 kg 97.1 kg Intake: IV 180 0.9 180 Oral 700 Output: Urine 850 0 Other 4300 Other: Voiding Method Urinal Urinal Toilet # Voids 1 - Exam Head exam was generally normal. There was no scleral icterus or corneal arcus. Mucous membranes were moist.Neck was supple and without jugular venous distension, thyromegaly, or carotid bruits. Carotids were easily palpable bilaterally. There was no adenopathy. Lung sounds are diminished bilaterally otherwise clear.Cardiac exam revealed the PMI to be normally situated and sized. The rhythm was regular and no extrasystoles were noted during several minutes of auscultation. The first and second heart sounds were normal and physiologic splitting of the second heart sound was noted. There were no murmurs , rubs, clicks, or gallops.Abdominal exam revealed normal bowel sounds. The abdomen was soft, non-tender, and without masses, organomegaly, or appreciable enlargement of the abdominal aorta. Extremities reveal +1 edema bilaterally lower extremities in addition to amputation of the toes on the left foot. Neurologically is awake alert and following commands and answering questions appropriately. - Labs CBC & Chem 7: 11/01/16 08:03 11/01/16 08:03 Labs: Abnormal Lab Results - Last 24 Hours (Table) 10/30/16 10/30/16 10/31/16 Range/Units 09:48 09:48 17:54 RBC (4.30-5.90) m/uL Hgb (13.0-17.5) gm/dL Hct (39.0-53.0) % Sodium 132 L (137-145) mmol/L BUN 28 H (9-20) mg/dL Creatinine 3.60 H (0.66-1.25) mg/dL Glucose 181 H (74-99) mg/dL POC Glucose (mg/dL) (75-99) mg/dL Calcium 7.8 L (8.4-10.2) mg/dL Total Protein (PEP) 4.5 L (6.2-8.2) g/dL Albumin (PEP) 2.13 L (3.80-4.90) g/dL Gamma Globulins 0.51 L (0.70-1.50) g/dL RBC Folate 1,873 H (280 - 791) ng/mL Free [place] LC, Quant 6.58 H (0.33 - 1.94) mg/dL Free Lambda LC, Quant 3.82 H (0.57 - 2.63) mg/dL Free [place]/Lambda Ratio 1.72 H (0.26 - 1.65) 10/31/16 10/31/16 11/01/16 Range/Units 18:05 21:15 02:12 RBC (4.30-5.90) m/uL Hgb (13.0-17.5) gm/dL Hct (39.0-53.0) % Sodium (137-145) mmol/L BUN (9-20) mg/dL Creatinine (0.66-1.25) mg/dL Glucose (74-99) mg/dL POC Glucose (mg/dL) 209 H 209 H 175 H (75-99) mg/dL Calcium (8.4-10.2) mg/dL Total Protein (PEP) (6.2-8.2) g/dL Albumin (PEP) (3.80-4.90) g/dL Gamma Globulins (0.70-1.50) g/dL RBC Folate (280 - 791) ng/mL Free [place] LC, Quant (0.33 - 1.94) mg/dL Free Lambda LC, Quant (0.57 - 2.63) mg/dL Free [place]/Lambda Ratio (0.26 - 1.65) 11/01/16 11/01/16 11/01/16 Range/Units 07:26 08:03 08:03 RBC 3.00 L (4.30-5.90) m/uL Hgb 8.2 L (13.0-17.5) gm/dL Hct 26.3 L (39.0-53.0) % Sodium 134 L (137-145) mmol/L BUN 38 H (9-20) mg/dL Creatinine 4.51 H (0.66-1.25) mg/dL Glucose 66 L (74-99) mg/dL POC Glucose (mg/dL) 117 H (75-99) mg/dL Calcium 7.9 L (8.4-10.2) mg/dL Total Protein (PEP) (6.2-8.2) g/dL Albumin (PEP) (3.80-4.90) g/dL Gamma Globulins (0.70-1.50) g/dL RBC Folate (280 - 791) ng/mL Free [place] LC, Quant (0.33 - 1.94) mg/dL Free Lambda LC, Quant (0.57 - 2.63) mg/dL Free [place]/Lambda Ratio (0.26 - 1.65) 11/01/16 Range/Units 12:07 RBC (4.30-5.90) m/uL Hgb (13.0-17.5) gm/dL Hct (39.0-53.0) % Sodium (137-145) mmol/L BUN (9-20) mg/dL Creatinine (0.66-1.25) mg/dL Glucose (74-99) mg/dL POC Glucose (mg/dL) 138 H (75-99) mg/dL Calcium (8.4-10.2) mg/dL Total Protein (PEP) (6.2-8.2) g/dL Albumin (PEP) (3.80-4.90) g/dL Gamma Globulins (0.70-1.50) g/dL RBC Folate (280 - 791) ng/mL Free [place] LC, Quant (0.33 - 1.94) mg/dL Free Lambda LC, Quant (0.57 - 2.63) mg/dL Free [place]/Lambda Ratio (0.26 - 1.65) Assessment and Plan Plan: Impression 1 acute hyperglycemia without evidence of diabetic ketoacidosis. The patient is treated with insulin drip and currently his blood sugars under better control 2 End stage renal disease with hemodialysis 3 times a week, Sunday/Sunday/ Sunday 3 left upper extremity AV fistula, maturing 4 volume overload, secondary to renal failure 5 chronic anemia 6 hypertension 7 hyperlipidemia 8 peripheral vascular disease 9 osteomyelitis 10 previous amputation of the left toes/ left foot. Plan The patient was seen and evaluated by Dr. Best. The diabetes educator has worked with the patient and his insulin pump and his numbers are improved. he is cleared for discharge from the pulmonary standpoint. He will continue to follow with his PCP, [facility] [employer] assistant sales marketing.
--- NOTE | 2016-11-01 23:38 | PN ---
Patient is seen for followup for end-stage renal disease. He is currently seen on dialysis, tolerating his treatment well. Patient's kidney biopsy is canceled, as I spoke to the pathologist and he stated he could comfortably call it diabetic nephropathy based on the light microscopy. Therefore we do not have to repeat another kidney biopsy. On examination, patient is comfortable, awake. Blood pressure was 137/75, heart rate 76 per minute. He is afebrile. EXAMINATION OF THE HEART: S1 and S2. EXAMINATION OF THE LUNGS: Bilateral breath sounds are heard. Examination of lower extremities shows much improved edema. PROM BURN OFF OPERATOR exam is grossly intact. Labs show potassium 4.2, sodium 134; hemoglobin 8.2 g/dL. ASSESSMENT: 1. End-stage renal disease, on hemodialysis on a Sunday, Sunday, Sunday schedule. 2. Volume overload, currently significantly improved. 3. Anemia of chronic disease with a history of iron deficiency, status post IV iron and maintained on Aranesp. 4. Hyperglycemia; severe non-ketotic hyperglycemia on admission secondary to insulin pump failure, now improved. PLAN: Patient can be discharged post dialysis. We will follow up as outpatient in [place] on hemodialysis.
[2016-11-02 05:57] LABS: Methylmalonic Acid 0.68 umol/L (<0.40)
[2016-11-13] MEDS ORDERED: ERGOCALCIFEROL 50,000 UNIT CAP PO SCH (09:00)
--- NOTE | 2016-12-25 05:40 | DS ---
DATE OF ADMISSION: 10/30/2016 DATE OF DISCHARGE: 11/01/2016 DISCHARGE DIAGNOSES: 1. Hyperglycemia due to malfunction of insulin pump. 2. Hyperglycemic hyperosmolar state, was on insulin drip in the ICU. Currently back to insulin pump. 3. Hyponatremia/pseudohyponatremia, resolved. 4. Hypokalemia, improved. 5. Uncontrolled diabetes mellitus,. HbA1c of 10.5. 6. End-stage renal disease recently started on hemodialysis Sunday, Sunday, Sunday. 7. Status post her recent renal biopsy with inadequate sample. 8. Hypertension, uncontrolled. 9. Hyperlipidemia. 10. Gastroesophageal reflux disease. 11. History of right retinal detachment. 12. 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 13. Deep venous thrombosis prophylaxis, heparin subcu. HOSPITAL COURSE: Mr. Howell is a 36-year-old male with known history of recently started ESRD on hemodialysis and insulin-independent diabetes mellitus was admitted to the hospital with hyperglycemic state due to insulin pump bent needle. Currently, blood pressure is controlled now. Blood sugars are controlled as well. The patient was on insulin drip while in the ICU. Currently back to his insulin pump. The patient will be meeting his insulin pump agent tomorrow at home. Otherwise, the patient is cleared from Nephrology to follow up as an outpatient. Currently denied any complaints. The patient is stable to be discharged home. DISCHARGE PHYSICAL EXAMINATION: A 36-year-old male lying in the bed comfortably, awake, alert, oriented x3. Appears to be in no apparent distress. VITALS: Blood pressure is 137/75, pulse is 71, respirations 18, temperature afebrile, pulse ox 96% on room air. LABORATORY DATA: Reviewed. Discharge physical examination done. Discharge medications include: 1. Cymbalta 120 mg p.o. at bedtime. 2. [place] 5/325 one tablet p.o. q.6 hourly p.r.n. for pain. 3. Pravastatin 40 mg p.o. at bedtime. 4. Coreg 25 mg p.o. b.i.d. 5. Abilify 10 mg p.o. at bedtime. 6. Cardizem CD 180 mg p.o. at bedtime. 7. Therapeutic M 1 tablet p.o. at bedtime. 8. Prilosec 40 mg p.o. at bedtime. 9. Lasix 60 mg p.o. b.i.d. 10. Insulin pump. 11. Procrit 1 unit injections q.7 days. 12. Vitamin D2, 50,000 units p.o. q. monthly. 13. Ferrous sulfate 325 mg p.o. daily. 14. Metolazone 5 mg p.o. daily. 15. PhosLo 667 mg p.o. t.i.d. with meals. Patient will be discharged home in stable condition. Activity as tolerated. Follow with Dr. Janis Church as an outpatient. Home with home healthcare service. Activity as tolerated. Cardiac, diabetic and renal diet. Follow with PCP in 1-3 days. MTDD
== END 2016-11-01 15:34 | disposition home health service (06) | DRG 919 ==
LOC: 6SEL 10-30 00:46 → 6ICU 10-30 02:13 → 4MS4W 10-31 17:09
PROVIDERS: ADMIT Hospitalist; ATTEND Hospitalist
PROC: 5A1D60Z (ICD-10-PCS; principal; 2016-10-30)
DX: T85.694A Other mechanical complication of insulin pump, initial encounter (principal); N18.6 End stage renal disease; E87.0 Hyperosmolality and hypernatremia; K31.84 Gastroparesis; I12.0 Hypertensive chronic kidney disease with stage 5 chronic kidney disease or end stage renal disease; E10.43 Type 1 diabetes mellitus with diabetic autonomic (poly)neuropathy; E87.1 Hypo-osmolality and hyponatremia; E10.51 Type 1 diabetes mellitus with diabetic peripheral angiopathy without gangrene; T38.3X6A Underdosing of insulin and oral hypoglycemic [antidiabetic] drugs, initial encounter; E10.21 Type 1 diabetes mellitus with diabetic nephropathy; E87.6 Hypokalemia; E10.649 Type 1 diabetes mellitus with hypoglycemia without coma; E10.65 Type 1 diabetes mellitus with hyperglycemia; D50.9 Iron deficiency anemia, unspecified; E10.22 Type 1 diabetes mellitus with diabetic chronic kidney disease; D63.1 Anemia in chronic kidney disease; E87.70 Fluid overload, unspecified; E78.5 Hyperlipidemia, unspecified; F32.9 Major depressive disorder, single episode, unspecified; R60.0 Localized edema; K44.9 Diaphragmatic hernia without obstruction or gangrene; R06.00 Dyspnea, unspecified; R53.1 Weakness; K21.9 Gastro-esophageal reflux disease without esophagitis; H54.7 Unspecified visual loss; Z88.8 Allergy status to other drugs, medicaments and biological substances; Z87.19 Personal history of other diseases of the digestive system; Z99.2 Dependence on renal dialysis; Z86.14 Personal history of Methicillin resistant Staphylococcus aureus infection; Z96.41 Presence of insulin pump (external) (internal); Z79.4 Long term (current) use of insulin; Z82.3 Family history of stroke; Z82.49 Family history of ischemic heart disease and other diseases of the circulatory system; Z89.412 Acquired absence of left great toe; Z83.3 Family history of diabetes mellitus; Z87.11 Personal history of peptic ulcer disease; Z86.69 Personal history of other diseases of the nervous system and sense organs; Z86.19 Personal history of other infectious and parasitic diseases; Z79.891 Long term (current) use of opiate analgesic; Z79.899 Other long term (current) drug therapy; Z16.24 Resistance to multiple antibiotics; Z89.422 Acquired absence of other left toe(s); Y74.2 Prosthetic and other implants, materials and accessory general hospital and personal-use devices associated with adverse incidents
CPT/HCPCS: 80048; 80051; 81001; 82009; 82565; 82607; 82728; 82747; 82947; 83036; 83540; 83550; 83735; 83883; 83921; 83930; 84100; 84165; 84520; 85025; 85045; 85610; 85730; 86334; 86704; 86706; 87340; 90935

== ENCOUNTER 2017-01-21 10:53 | Observation (INO) | payer MEDICARE, OTHER ==
--- NOTE | 2017-01-21 11:10 | ED ---
General Adult HPI - General Chief complaint: Recheck/Abnormal Lab/Rx Stated complaint: Hypoglycemia Time Seen by Provider: 01/21/17 11:00 Source: patient, EMS, RN notes reviewed Mode of arrival: EMS Limitations: no limitations - History of Present Illness Initial comments: This is a 36-year-old male who is a transfer from [facility]. He was there because of hypoglycemia according to the ER doctor there that had to give him 3 A of dextrose before he came back and was able to speak to them. They stated that he wasn't back to his baseline so they wanted her transferred to our facility. Per EMS he is alert and oriented 4 since they picked up the patient. Patient states he doesn't know why he was low he did have a dream that he was playing with his pump but he doesn't know if he really did give himself more insulin or not because he does not have his pump on his mother took it from him at the other hospital. Patient states he does remember eating a Pop Tart this morning when he started feeling weird but then he woke up in the hospital a and he hasn't eaten since. Patient denies any recent illness. Patient denies any fever chills or cough. Patient denies any recent nausea vomiting diarrhea. Patient denies any pain patient denies headache patient denies chest pain patient denies abdominal pain. Patient denies any dysuria hematuria urinary frequency. - Related Data Home Medications Medication Instructions Recorded Confirmed DULoxetine HCL [Cymbalta] 120 mg PO HS 05/22/15 01/21/17 Hydrocodone/Acetaminophen [[place] 1 tab PO Q6HR PRN 12/26/15 01/21/17 5-325] Pravastatin Sodium [Pravachol] 40 mg PO HS 12/26/15 01/21/17 ARIPiprazole [Abilify] 10 mg PO HS 09/07/16 01/21/17 Diltiazem Cd [Cardizem CD] 180 mg PO HS 09/07/16 01/21/17 Folic Acid/Multivit-Min/Lutein 1 tab PO HS 09/07/16 01/21/17 [Therapeutic-M Tablet] Omeprazole [PriLOSEC] 40 mg PO HS 09/07/16 01/21/17 Insulin Aspart (For Pump) [NovoLOG 1.4 - 1.6 units SQ DIRECTED 09/22/1601/21 (For Pump)] Ergocalciferol [Vitamin D2 50,000 unit PO Q7D 10/18/16 01/21/17 (DRISDOL)] Previous Rx's Medication Instructions Recorded Carvedilol [Coreg] 25 mg PO BID #60 tablet 12/29/15 Furosemide [Lasix] 60 mg PO BID #60 tab 09/12/16 Calcium Acetate [PhosLo] 667 mg PO TID-W/MEALS #90 cap 10/20/16 Allergies Allergy/AdvReac Type Severity Reaction Status Date / Time atorvastatin calcium AdvReac Nausea & Verified 01/21/17 11:40 [From Lipitor] Vomiting losartan potassium AdvReac Nausea & Verified 01/21/17 11:40 [From Cozaar] Vomiting tramadol AdvReac Unknown Verified 01/21/17 11:40 Review of Systems ROS Statement: Those systems with pertinent positive or pertinent negative responses have been documented in the HPI. ROS Other: All systems not noted in ROS Statement are negative. Past Medical History Past Medical History: Diabetes Mellitus, Eye Disorder, GI Bleed, Hyperlipidemia , Hypertension, Renal Disease Additional Past Medical History / Comment(s): IDDM type I, diabetic since he was age 21, insulin pump since 2009, DKA, hiatal hernia, R eye retinal detachment with surgery-vision decreased, incisional disease on hemodialysis. The patient is seeing hemodialysis 3 times a week through a permacath and he has an AV fistula in his left upper extremity. Other medical problems are chronic anemia, previous history of GI bleed secondary to peptic ulcer disease, volume overload, chronic kidney disease bone marrow disorder, peripheral vascular disease, osteomyelitis, diabetic foot ulcers and amputations History of Any Multi-Drug Resistant Organisms: MRSA Date of last positivie culture/infection: 12/20/11 MDRO Source:: Left Foot ( site per nursing history Additional Past Surgical History / Comment(s): renal needle bx, 2008 left great toe amp and 2013 2nd to 5th left foot toes amputated. right chest mediport x2 with removal in 2010 and 2012. right eye retina reattachment sx 03/2015. EGD/ colonoscopy. chronic wound right foot ( tested for MRSA and was Neg) Past Anesthesia/Blood Transfusion Reactions: No Reported Reaction Past Psychological History: Depression Additional Psychological History / Comment(s): Pt resides with his mother. He uses a cane at times. He drives. Smoking Status: Never smoker Past Alcohol Use History: Rare Additional Past Alcohol Use History / Comment(s): Patient states he is a lifelong nonsmoker. He denies any medical marijuana, marijuana, street drug use. He states he drinks alcohol on a rare basis. Past Drug Use History: None Reported - Past Family History Mother Family Medical History: Hypertension Father Family Medical History: CVA/TIA, Diabetes Mellitus, Hypertension Additional Family Medical History / Comment(s): Father is at the age of 53yrs from a CVA. General Exam - General Exam Comments Initial Comments: GENERAL: Patient is well-developed and well-nourished. Patient is nontoxic and well- hydrated and is in no acute distress ENT: Neck is soft and supple. No significant lymphadenopathy is noted. Oropharynx is clear. Moist mucous membranes. Neck has full range of motion without eliciting any pain. EYES: The sclera were anicteric and conjunctiva were pink and moist. Extraocular movements were intact and pupils were equal round and reactive to light. Eyelids were unremarkable. PULMONARY: Unlabored respirations. Good breath sounds bilaterally. No audible rales rhonchi or wheezing was noted. CARDIOVASCULAR: There is a regular rate and rhythm without any murmurs gallops or rubs. ABDOMEN: Soft and nontender with normal bowel sounds. No palpable organomegaly was noted. There is no palpable pulsatile mass. SKIN: Skin is clear with no lesions or rashes and otherwise unremarkable. NEUROLOGIC: Patient is alert and oriented x3. Cranial nerves II through XII are grossly intact. Motor and sensory are also intact. Normal speech, volume and content. Symmetrical smile. MUSCULOSKELETAL: Normal extremities with adequate strength and full range of motion. No lower extremity swelling or edema. No calf tenderness. LYMPHATICS: No significant lymphadenopathy is noted PSYCHIATRIC: Normal psychiatric evaluation. Normal interpersonal interactions appears functionally intact in deals appropriately with others. No signs of depression. No signs of anxiety. Limitations: no limitations Course Vital Signs 01/21/17 10:56 Pulse Rate 71 Respiratory 16 Rate Blood Pressure 158/86 O2 Sat by Pulse 94 L Oximetry Medical Decision Making - Medical Decision Making I reviewed the patient's lab work as well as the recent x-ray. Patient was alert and oriented 4 and had no complaints. I admitted for 23 observation based on the report that the patient was not coming around from his hypoglycemic state very quickly and because we are unsure as to why he was hyperglycemic. Disposition Clinical Impression: Hypoglycemia Disposition: ADMITTED IP TO THIS [facility] Time of Disposition: 11:44
[2017-01-21] MEDS ORDERED: SODIUM CHLORIDE 0.9% 1,000 ML IV ONE (11:45)
[2017-01-21 12:46] LABS: Glucose,Whole Blood 393 mg/dL (75-99)
[2017-01-21 13:04] LABS: Glucose,Whole Blood 457 mg/dL (75-99)
[2017-01-21 13:35] LABS: Glucose,Whole Blood 497 mg/dL (75-99)
[2017-01-21] MEDS: INSULIN LISPRO (humaLOG) 300 UNIT/3 ML VIAL SQ SCH ×2 (13:50→20:19)
[2017-01-21 15:07] LABS: Glucose,Whole Blood 564 mg/dL (75-99)
[2017-01-21] MEDS ORDERED: INSULIN LISPRO (humaLOG) 300 UNIT/3 ML VIAL SQ ONE (15:23)
[2017-01-21 15:34] VITALS: BMI 25.7
[2017-01-21] MEDS ORDERED: ERGOCALCIFEROL 50,000 UNIT CAP PO SCH (16:00)
[2017-01-21 16:02] LABS: Glucose,Whole Blood 527 mg/dL (75-99)
[2017-01-21 17:06] LABS: Glucose,Whole Blood >600 mg/dL (75-99)
[2017-01-21 17:10] LABS: Glucose,Whole Blood 558 mg/dL (75-99)
[2017-01-21] MEDS: FUROSEMIDE 20 MG TAB PO SCH (17:13)
[2017-01-21] MEDS: CARVEDILOL 12.5 MG TAB PO SCH (17:13)
[2017-01-21] MEDS: CALCIUM ACETATE 667 MG CAP PO SCH (17:13)
[2017-01-21 18:07] LABS: Glucose,Whole Blood 523 mg/dL (75-99)
[2017-01-21 19:01] LABS: Glucose,Whole Blood 572 mg/dL (75-99)
[2017-01-21 20:03] LABS: Glucose,Whole Blood 559 mg/dL (75-99)
[2017-01-21] MEDS ORDERED: INSULIN REGULAR BOLUS (FROM DRIP BAG) IV ONE (20:51)
[2017-01-21 21:05] LABS: Glucose,Whole Blood 600 mg/dL (75-99)
[2017-01-21] MEDS: INSULIN REGULAR 100 UNIT in SODIUM CHLORIDE 0.9% 100 ML IV SCH ×2 (21:08→23:55)
[2017-01-21 21:18] LABS: Calcium 8.4 mg/dL (8.4-10.2); Total Bilirubin 0.5 mg/dL (0.2-1.3); Total Protein 4.6 g/dL (6.3-8.2)
[2017-01-21] MEDS: DULoxetine HCL 60 MG CAPSULE.DR PO SCH (21:21)
[2017-01-21] MEDS: ARIPiprazole 10 MG TAB PO SCH (21:22)
[2017-01-21] MEDS: PANTOPRAZOLE 40 MG TABLET PO SCH (21:22)
[2017-01-21] MEDS: DILTIAZEM CD 180 MG CAP.ER.24H PO SCH (21:23)
[2017-01-21 21:43] LABS: Basophils % (A) 1 %; CH 27.3; CHCM 31.4; Eosinophils # (A) 0.2 k/uL (0-0.7); Eosinophils % (A) 2 %; HCT 38.5 % (39.0-53.0); HDW 3.03; HGB 12.2 gm/dL (13.0-17.5); Hypochromasia Slight; Luc # (Auto) 0.08; Luc % (Auto) 1; Lymphocytes # (A) 1.3 k/uL (1.0-4.8); Lymphocytes % (A) 16 %; MCH 27.7 pg (25.0-35.0); MCHC 31.8 g/dL (31.0-37.0); MCV 87.2 fL (80.0-100.0); Mean Platelet Volume 8.6; Monocytes # (A) 0.4 k/uL (0-1.0); Monocytes % (A) 5 %; Neutrophils # (A) 6.4 k/uL (1.3-7.7); Neutrophils % (A) 76 %; RBC 4.41 m/uL (4.30-5.90); RDW 14.8 % (11.5-15.5); WBC 8.4 k/uL (3.8-10.6); WBC (Perox) 7.76
[2017-01-21 21:50] LABS: Glucose,Whole Blood 545 mg/dL (75-99)
[2017-01-21] MEDS: PRAVASTATIN SODIUM 40 MG TAB PO SCH (21:55)
[2017-01-21] MEDS: MULTIVITAMINS, THERA 1 EACH TAB PO SCH (21:55)
[2017-01-21 22:30] LABS: Glucose,Whole Blood 477 mg/dL (75-99)
[2017-01-21 22:47] LABS: Glucose,Whole Blood 454 mg/dL (75-99)
[2017-01-21 23:18] LABS: Glucose,Whole Blood 428 mg/dL (75-99)
[2017-01-21 23:45] LABS: Glucose,Whole Blood 452 mg/dL (75-99)
[2017-01-22 00:38] LABS: Glucose,Whole Blood 340 mg/dL (75-99)
[2017-01-22 01:16] LABS: Glucose,Whole Blood 269 mg/dL (75-99)
[2017-01-22 01:29] LABS: Glucose,Whole Blood 228 mg/dL (75-99)
[2017-01-22 02:14] LABS: Glucose,Whole Blood 136 mg/dL (75-99)
[2017-01-22 02:42] LABS: Glucose,Whole Blood 99 mg/dL (75-99)
[2017-01-22 03:22] LABS: Glucose,Whole Blood 44 mg/dL (75-99)
[2017-01-22] MEDS ORDERED: DEXTROSE 50%-WATER 50 ML SYRINGE IVP ONE ×3 (03:44→06:25)
[2017-01-22 03:47] LABS: Glucose,Whole Blood 32 mg/dL (75-99)
[2017-01-22 03:47] LABS: Glucose,Whole Blood 29 mg/dL (75-99)
[2017-01-22 03:51] LABS: Glucose,Whole Blood 28 mg/dL (75-99)
[2017-01-22] MEDS: DEXTROSE 4 GM CHEWABLE ONE ×3 (03:55→04:01)
[2017-01-22] MEDS ORDERED: DEXTROSE 5% IN WATER 1,000 ML IV ONE ×2 (04:02→06:41)
[2017-01-22 04:08] LABS: Glucose,Whole Blood 27 mg/dL (75-99)
[2017-01-22 04:08] LABS: Glucose,Whole Blood 94 mg/dL (75-99)
[2017-01-22 04:35] LABS: Glucose,Whole Blood 104 mg/dL (75-99)
[2017-01-22 05:03] LABS: Glucose,Whole Blood 105 mg/dL (75-99)
[2017-01-22 06:37] LABS: Glucose,Whole Blood 147 mg/dL (75-99)
[2017-01-22 06:37] LABS: Glucose,Whole Blood 53 mg/dL (75-99)
[2017-01-22 06:37] LABS: Glucose,Whole Blood 54 mg/dL (75-99)
[2017-01-22 06:47] LABS: Glucose,Whole Blood 178 mg/dL (75-99)
[2017-01-22 07:42] LABS: Glucose,Whole Blood 125 mg/dL (75-99)
[2017-01-22 08:09] LABS: Basophils # (A) 0.1 k/uL (0-0.2); Basophils % (A) 1 %; CH 27.2; CHCM 31.1; Eosinophils # (A) 0.3 k/uL (0-0.7); Eosinophils % (A) 3 %; HCT 38.2 % (39.0-53.0); HDW 2.82; HGB 11.7 gm/dL (13.0-17.5); Hypochromasia Slight; Luc # (Auto) 0.16; Luc % (Auto) 2; Lymphocytes # (A) 1.8 k/uL (1.0-4.8); Lymphocytes % (A) 19 %; MCH 26.9 pg (25.0-35.0); MCHC 30.6 g/dL (31.0-37.0); MCV 87.6 fL (80.0-100.0); Mean Platelet Volume 8.1; Monocytes # (A) 0.6 k/uL (0-1.0); Monocytes % (A) 6 %; Neutrophils # (A) 6.5 k/uL (1.3-7.7); Neutrophils % (A) 69 %; RBC 4.36 m/uL (4.30-5.90); RDW 15.1 % (11.5-15.5); WBC 9.4 k/uL (3.8-10.6); WBC (Perox) 9.59
[2017-01-22 08:37] LABS: Glucose,Whole Blood 111 mg/dL (75-99)
[2017-01-22] MEDS: CARVEDILOL 12.5 MG TAB PO SCH ×2 (08:39→18:15)
[2017-01-22] MEDS: FUROSEMIDE 20 MG TAB PO SCH ×2 (08:40→18:15)
[2017-01-22] MEDS: CALCIUM ACETATE 667 MG CAP PO SCH ×3 (08:40→18:15)
[2017-01-22 09:03] LABS: Calcium 8.3 mg/dL (8.4-10.2); Potassium 4.5 mmol/L (3.5-5.1)
[2017-01-22 09:34] LABS: Glucose,Whole Blood 119 mg/dL (75-99)
[2017-01-22 10:33] LABS: Glucose,Whole Blood 127 mg/dL (75-99)
--- NOTE | 2017-01-22 11:22 | HP ---
DATE OF ADMISSION: CHIEF COMPLAINT: Hyperglycemia. HISTORY OF PRESENT ILLNESS: This 36-year-old gentleman with a past medical history of multiple medical problems including diabetes mellitus type 2, GI bleed, hypertension, hyperlipidemia, renal disease, history of insulin pump since 2009, multiple diabetic ketoacidosis, hiatal hernia, right eye retinal detachment, history of AV fistula, history of hemodialysis, PermCath on the right side, history of peptic ulcer disease, chronic kidney disease, being followed by in the outpatient setting, was recently admitted with hypoglycemia secondary to malfunction insulin pump. Currently, the patient went home last month and currently the patient presented to [facility] with hypoglycemia. 3 ampules of dextrose were given and blood sugar increased to 500 and the patient was referred to [facility] and admitted for further evaluation and treatment. There is no history of fever, rigors, chills. No history of headache, loss of consciousness, seizure. Patient is confused and unable to give a coherent history. Most of the history is taken from my discussion with staff and as well as review of the chart at this time. PAST MEDICAL HISTORY: History of diabetes mellitus brittle, hypertension, hyperlipidemia, history of malfunction pump, depression, multiple complication with diabetes mellitus. Home medications are: 1. Pravachol 40 mg at bedtime. 2. Prilosec 40 mg at bedtime. 3. Insulin pump 1.4 to 1.6 units subcu baseline 4. [place] 5 mg q.6 p.r.n. 5. Lasix 60 mg p.o. daily. 6. Folic acid 1 p.o. q.h.s. 7. Multivitamin 1 p.o. daily. 8. Drisdol 50,000 every 7 days. 9. Cardizem CD 180 mg q.h.s. 10. Cymbalta 120 mg q.h.s. 11. Coreg 25 mg b.i.d. 12. PhosLo 667 t.i.d. with meals. 13. Abilify 10 mg q.h.s. ALLERGIES: ATORVASTATIN, LOSARTAN, ULTRAM. FAMILY HISTORY: History of hypertension, history of cerebrovascular accident. SOCIAL HISTORY: No history of smoking, no history of alcohol intake. REVIEW OF SYSTEMS: ENT: Diminished vision. No diminished hearing, CARDIOVASCULAR SYSTEM: No angina. RESPIRATORY: No cough. GI: No nausea. : No dysuria. NERVOUS SYSTEM: As mentioned earlier. ALLERGY/IMMUNOLOGY: No asthma or hayfever. MUSCULOSKELETAL: As mentioned earlier. HEMATOLOGY/ONCOLOGY: No history of anemia. ENDOCRINE: As mentioned earlier. CONSTITUTIONAL: As mentioned earlier. DERMATOLOGY: Negative. RHEUMATOLOGY: Negative. PSYCHIATRY: As mentioned earlier. PHYSICAL EXAMINATION: Patient is alert and oriented x2. Pulse is 90, blood pressure 181/87, respirations 16, temperature 97.7, pulse ox 92% on 2 liters. HEENT: Conjunctivae normal. Oral mucosa moist. NECK: No jugular venous distention. No carotid bruit. No lymph node enlargement. CARDIOVASCULAR: S1 and S2, muffled. RESPIRATORY: Breath sounds diminished at the bases. A few scattered rhonchi and crackles. ABDOMEN: Soft, nontender. No mass palpable. LEGS: No edema, no swelling. NERVOUS SYSTEM: Higher function as mentioned. Moves all four limbs. No focal motor deficits. LYMPHATIC: No lymphadenopathy in the neck, axillae or groin. SKIN: No ulcer, rash or bleeding. LABS: Glucose 559. ASSESSMENT: 1. Uncontrolled diabetes type 2 multifactorial. 2. History of hypoglycemia from elsewhere. 3. History of recent nonfunctioning insulin pump. 4. History of diabetic retinopathy. 5. History of gastrointestinal bleed. 6. Hypertension, essential. 7. Hyperlipidemia. 8. History of diabetic nephropathy and chronic kidney disease, stage V on hemodialysis. 9. Right PermCath. 10. Right AV fistula in the right lower extremity. 11. Chronic anemia secondary to chronic medical disease. 12. History of GI bleed secondary to peptic ulcer disease. 13. History of peripheral vascular disease. 14. History of osteomyelitis. 15. History of diabetic foot ulcers and amputations. 16. History of methicillin-resistant Staphylococcus aureus. 17. History of depression, not otherwise specified. 18. FULL CODE. RECOMMENDATIONS AND DISCUSSION: In this 36-year-old gentleman who presented with multiple complex medical issues, we will monitor the patient closely. Continue the current medications, continue symptomatic treatment. I recommend initiating insulin drip at this time and continue to monitor. Otherwise, continue the rest of the home medications. Diabetic education consultation and evaluation of insulin pump. Otherwise, prognosis guarded because multiple complex medical issues. Further recommendations to follow. See orders for details. MTDD
[2017-01-22 11:31] LABS: Glucose,Whole Blood 121 mg/dL (75-99)
[2017-01-22 12:27] LABS: Glucose,Whole Blood 112 mg/dL (75-99)
[2017-01-22 13:42] LABS: Hemoglobin A1C 11.6 % (4.2-6.1)
[2017-01-22 14:29] LABS: Glucose,Whole Blood 116 mg/dL (75-99)
[2017-01-22 15:29] LABS: Glucose,Whole Blood 115 mg/dL (75-99)
[2017-01-22 16:50] LABS: Glucose,Whole Blood 138 mg/dL (75-99)
[2017-01-22 17:32] LABS: Glucose,Whole Blood 165 mg/dL (75-99)
[2017-01-22 18:40] LABS: Glucose,Whole Blood 178 mg/dL (75-99)
[2017-01-22 19:30] LABS: Glucose,Whole Blood 226 mg/dL (75-99)
[2017-01-22 20:25] LABS: Glucose,Whole Blood 311 mg/dL (75-99)
[2017-01-22] MEDS ORDERED: INSULIN LISPRO (humaLOG) 300 UNIT/3 ML VIAL SQ ONE (20:34)
[2017-01-22] MEDS: ARIPiprazole 10 MG TAB PO SCH (20:49)
[2017-01-22] MEDS: PRAVASTATIN SODIUM 40 MG TAB PO SCH (20:49)
[2017-01-22] MEDS: DILTIAZEM CD 180 MG CAP.ER.24H PO SCH (20:49)
[2017-01-22] MEDS: MULTIVITAMINS, THERA 1 EACH TAB PO SCH (20:49)
[2017-01-22] MEDS: DULoxetine HCL 60 MG CAPSULE.DR PO SCH (20:49)
[2017-01-22] MEDS: PANTOPRAZOLE 40 MG TABLET PO SCH (20:49)
[2017-01-22] MEDS: INSULIN LISPRO (humaLOG) 300 UNIT/3 ML VIAL SQ SCH (20:51)
--- NOTE | 2017-01-22 21:28 | PN ---
DATE OF SERVICE: 01/22/2017 This 36 -year-old gentleman was admitted diabetes mellitus , also had hypoglycemia. The patient blood sugar was high but after starting insulin, sugars again bottomed out and the patient brittle diabetes mellitus , the patient using insulin pump at home. The patient had previous history of insulin pump malfunction. Patient being followed by Dr. Janis Church in the outpatient setting. Past medical history reviewed. REVIEW OF SYSTEMS: CARDIOVASCULAR: No angina or palpitations. RESPIRATORY: As mentioned earlier. GASTROINTESTINAL: As mentioned earlier. GENITOURINARY: No dysuria. CENTRAL NERVOUS SYSTEM: Diffuse weakness. Current medications are reviewed and noted: 1. Abilify 10 mg q.h.s. 2. PhosLo 667 t.i.d. 3. Coreg 25 mg p.o. b.i.d. 4. Cardizem CD 180 mg q.h.s. 5. Cymbalta 120 mg q.h.s. 6. Vitamin D2 50,000 every 7 days. 7. Lasix 60 mg p.o. b.i.d. 8. Multivitamins one p.o. daily. 9. Protonix 40 mg q.h.s. 10. Pravachol 40 mg q.h.s. PHYSICAL EXAMINATION: The patient is alert and oriented times three. Pulse 103. Blood pressure 150/84. Respiratory rate 16. Temperature 98.9. Pulse ox 97% on room air. HEENT: Conjunctivae normal. Oral mucosa moist. NECK: No jugular venous distention. No carotid bruit. No lymph node enlargement. ABDOMEN: Soft, nontender. No mass palpable. RESPIRATORY: Breath sounds diminished at the bases. No rhonchi. No crackles. Abdomen: Soft, nontender. No mass palpable. Legs: No edema. No swelling. CENTRAL NERVOUS SYSTEM: No focal deficits. LYMPHATICS: No lymph nodes palpable in the neck, axillae or groin. SKIN: No ulcer, rash or bleeding. LABS: WBC 9.5, hemoglobin 11.6 and sodium 138, potassium 4.3, creatinine is 1.50 and glucose 127. ASSESSMENT: 1. Uncontrolled Type 2 diabetes mellitus, multifactorial. 2. History of hypoglycemic from elsewhere. 3. History of recent nonfunctioning insulin pump. 4. History of diabetic retinopathy. 5. History of gastrointestinal bleed. 6. History of essential hypertension. 7. Hyperlipidemia. 8. History of diabetic nephropathy and chronic kidney disease, stage V on hemodialysis. 9. Right Permacath. 10. Right AV fistula in the right lower extremity. 11. Chronic anemia secondary to chronic medical disease. 12. History of gastrointestinal bleed secondary to peptic ulcer disease. 13. History of peripheral vascular disease. 14. History of osteomyelitis. 15. History of diabetic foot ulcers and amputations. 16. History of Methicillin-resistant Staph aureus. 17. History of depression, not otherwise specified. 18. FULL CODE. RECOMMENDATIONS AND DISCUSSION: In this 36-year-old gentleman who presented with multiple complex medical issues, we will monitor the patient closely. Continue the current medications. Current symptomatic treatment. Otherwise, at this time, I recommend continue with multiple blood sugars. No medication will be initiated. I would also recommend closely follow up with diabetic education as well as Endocrine also. Guarded prognosis. Discussed with the patient and family. Further recommendations to follow. MTDD
[2017-01-23 00:38] VITALS: PULSE 82; RESP 16
[2017-01-23 06:02] LABS: Glucose,Whole Blood 216 mg/dL (75-99)
[2017-01-23 07:22] LABS: Glucose,Whole Blood 287 mg/dL (75-99)
[2017-01-23] MEDS: CALCIUM ACETATE 667 MG CAP PO SCH (07:39)
[2017-01-23] MEDS: FUROSEMIDE 20 MG TAB PO SCH (07:40)
[2017-01-23] MEDS: CARVEDILOL 12.5 MG TAB PO SCH (07:40)
[2017-01-23] MEDS: INSULIN LISPRO (humaLOG) 300 UNIT/3 ML VIAL SQ SCH (07:41)
[2017-01-23 08:28] LABS: Basophils # (A) 0.1 k/uL (0-0.2); Basophils % (A) 1 %; CH 27.2; Eosinophils # (A) 0.3 k/uL (0-0.7); Eosinophils % (A) 5 %; HCT 38.3 % (39.0-53.0); HDW 2.68; HGB 11.9 gm/dL (13.0-17.5); Hypochromasia Slight; Luc # (Auto) 0.11; Luc % (Auto) 2; Lymphocytes # (A) 1.9 k/uL (1.0-4.8); Lymphocytes % (A) 27 %; MCH 27.4 pg (25.0-35.0); MCHC 31.2 g/dL (31.0-37.0); Monocytes # (A) 0.3 k/uL (0-1.0); Monocytes % (A) 5 %; Neutrophils # (A) 4.4 k/uL (1.3-7.7); Neutrophils % (A) 62 %; RBC 4.35 m/uL (4.30-5.90); RDW 15.2 % (11.5-15.5); WBC 7.1 k/uL (3.8-10.6); WBC (Perox) 7.39
[2017-01-23 08:39] LABS: Calcium 8.4 mg/dL (8.4-10.2); Potassium 5.5 mmol/L (3.5-5.1)
[2017-01-23 08:47] VITALS: BP 153/83; TEMP 98.5
[2017-01-23 08:47] LABS: Hemoglobin A1C 11.6 % (4.2-6.1)
--- NOTE | 2017-01-24 17:01 | DS ---
DATE OF ADMISSION: 01/21/2017 DATE OF DISCHARGE: 01/23/2017 FINAL DIAGNOSES: 1. Uncontrolled diabetes mellitus, type 2, multifactorial. 2. History of hypoglycemia from elsewhere. 3. History of recent nonfunctioning insulin pump. 4. History of diabetic retinopathy. 5. History of gastrointestinal bleed. 6. History of essential hypertension. 7. Hyperlipidemia. 8. Diabetic nephropathy, chronic kidney disease, stage V, on hemodialysis. 9. Right Perm-A-Cath. 10. Right AV fistula on the right lower extremity. 11. Chronic anemia secondary to chronic disease. 12. History of gastrointestinal bleed secondary to peptic ulcer disease. 13. History of peripheral vascular disease secondary to diabetes mellitus, type 2. 14. Osteomyelitis secondary to diabetes. 15. Diabetic foot ulcers and amputations. 16. History of methicillin-resistant Staphylococcus aureus. 17. History of depression not otherwise specified. 18. FULL CODE. DISCHARGE DISPOSITION: Patient left the hospital AGAINST MEDICAL ADVICE. HISTORY OF PRESENT ILLNESS: This 36-year-old gentleman who was admitted with diabetes mellitus, hypo- and hyperglycemia, was being closely monitored; however, the patient left the hospital AGAINST MEDICAL ADVICE. The patient also had multiple complex other medical issues, including hemodialysis. Prognosis remained guarded throughout the hospitalization. Hemoglobin A1c was 11.6, indicating poor control of the diabetes mellitus and brittle diabetes mellitus. Please refer to the previous history and physical and the progress notes for further details.
== END 2017-01-23 09:39 | disposition left against medical advice (07) ==
LOC: EC 10:53 → 3SUR 11:46
PROVIDERS: ADMIT Internal Medicine; ATTEND Internal Medicine
DX: E11.649 Type 2 diabetes mellitus with hypoglycemia without coma (principal); E11.319 Type 2 diabetes mellitus with unspecified diabetic retinopathy without macular edema; E11.22 Type 2 diabetes mellitus with diabetic chronic kidney disease; E11.21 Type 2 diabetes mellitus with diabetic nephropathy; E11.69 Type 2 diabetes mellitus with other specified complication; E11.65 Type 2 diabetes mellitus with hyperglycemia; E11.51 Type 2 diabetes mellitus with diabetic peripheral angiopathy without gangrene; I12.0 Hypertensive chronic kidney disease with stage 5 chronic kidney disease or end stage renal disease; N18.5 Chronic kidney disease, stage 5; E78.5 Hyperlipidemia, unspecified; F32.9 Major depressive disorder, single episode, unspecified; D63.8 Anemia in other chronic diseases classified elsewhere; M86.9 Osteomyelitis, unspecified; Z79.899 Other long term (current) drug therapy; Z79.4 Long term (current) use of insulin; Z88.8 Allergy status to other drugs, medicaments and biological substances; Z88.5 Allergy status to narcotic agent; Z82.49 Family history of ischemic heart disease and other diseases of the circulatory system; Z82.3 Family history of stroke; Z96.41 Presence of insulin pump (external) (internal); Z99.2 Dependence on renal dialysis; Z86.14 Personal history of Methicillin resistant Staphylococcus aureus infection; H54.7 Unspecified visual loss; H33.21 Serous retinal detachment, right eye; Z89.412 Acquired absence of left great toe; Z89.422 Acquired absence of other left toe(s); K27.9 Peptic ulcer, site unspecified, unspecified as acute or chronic, without hemorrhage or perforation
CPT/HCPCS: 96361 ×3; 96365; 96366 ×2; 96372 ×3; 99285; 80061; 80053; 80048 ×2; 83036 ×2; 85025 ×3; G0378 ×3

== ENCOUNTER 2017-05-11 00:03 | Inpatient (IN) | payer MEDICARE, OTHER ==
--- NOTE | 2017-05-11 00:20 | ED ---
General Adult HPI - General Chief complaint: Shortness of Breath Stated complaint: Pneumonia Time Seen by Provider: 05/11/17 00:05 Source: patient, RN notes reviewed Mode of arrival: EMS Limitations: no limitations - History of Present Illness Initial comments: This is a 37-year-old male with past medical history significant for diabetes and renal failure. Patient states she was last dialyzed on Sunday supposed to be dialyzed again tomorrow morning. Patient came to the emergency department and [facility] because of his difficulty breathing. Patient states he was very short of breath with any exertion. Patient states she's also coughing quite a bit. Patient states had low-grade fevers well. [facility] diagnosed with fluid overload as well as pneumonia. Patient was started on Rocephin and doxycycline. Patient continues to have some shortness of breath. Patient denies any chest pain or palpitations. Patient denies abdominal pain patient denies nausea vomiting diarrhea. Patient states she still makes urine but they did not give him any diuretics at the last facility. - Related Data Home Medications Medication Instructions Recorded Confirmed DULoxetine HCL [Cymbalta] 120 mg PO HS 05/22/15 01/21/17 Hydrocodone/Acetaminophen [[place] 1 tab PO Q6HR PRN 12/26/15 01/21/17 5-325] Pravastatin Sodium [Pravachol] 40 mg PO HS 12/26/15 01/21/17 ARIPiprazole [Abilify] 10 mg PO HS 09/07/16 01/21/17 Diltiazem Cd [Cardizem CD] 180 mg PO HS 09/07/16 01/21/17 Folic Acid/Multivit-Min/Lutein 1 tab PO HS 09/07/16 01/21/17 [Therapeutic-M Tablet] Omeprazole [PriLOSEC] 40 mg PO HS 09/07/16 01/21/17 Insulin Aspart (For Pump) [NovoLOG 1.4 - 1.6 units SQ DIRECTED 09/22/1601/21 (For Pump)] Ergocalciferol [Vitamin D2 50,000 unit PO Q7D 10/18/16 01/21/17 (DRISDOL)] Previous Rx's Medication Instructions Recorded Carvedilol [Coreg] 25 mg PO BID #60 tablet 12/29/15 Furosemide [Lasix] 60 mg PO BID #60 tab 09/12/16 Calcium Acetate [PhosLo] 667 mg PO TID-W/MEALS #90 cap 10/20/16 Allergies Allergy/AdvReac Type Severity Reaction Status Date / Time atorvastatin calcium AdvReac Nausea & Verified 05/11/17 00:12 [From Lipitor] Vomiting losartan potassium AdvReac Nausea & Verified 05/11/17 00:12 [From Cozaar] Vomiting tramadol AdvReac Unknown Verified 05/11/17 00:12 Review of Systems ROS Statement: Those systems with pertinent positive or pertinent negative responses have been documented in the HPI. ROS Other: All systems not noted in ROS Statement are negative. Past Medical History Past Medical History: Diabetes Mellitus, Eye Disorder, GI Bleed, Hyperlipidemia , Hypertension, Renal Disease Additional Past Medical History / Comment(s): IDDM type I, diabetic since he was age 21, insulin pump since 2009, DKA, hiatal hernia, R eye retinal detachment with surgery-vision decreased, incisional disease on hemodialysis. The patient is seeing hemodialysis 3 times a week through a permacath and he has an AV fistula in his right lower extremity. Other medical problems are chronic anemia, previous history of GI bleed secondary to peptic ulcer disease, volume overload, chronic kidney disease bone marrow disorder, peripheral vascular disease, osteomyelitis, diabetic foot ulcers and amputations History of Any Multi-Drug Resistant Organisms: MRSA Date of last positivie culture/infection: 12/20/11 MDRO Source:: Left Foot ( site per nursing history Additional Past Surgical History / Comment(s): renal needle bx, 2008 left great toe amp and 2013 2nd to 5th left foot toes amputated. right chest mediport x2 with removal in 2010 and 2012. right eye retina reattachment sx 03/2015. EGD/ colonoscopy. chronic wound right foot ( tested for MRSA and was Neg) Past Anesthesia/Blood Transfusion Reactions: No Reported Reaction Past Psychological History: Depression Smoking Status: Never smoker Past Alcohol Use History: None Reported Past Drug Use History: None Reported - Past Family History Mother Family Medical History: Hypertension Father Family Medical History: CVA/TIA, Diabetes Mellitus, Hypertension Additional Family Medical History / Comment(s): Father is at the age of 53yrs from a CVA. General Exam Limitations: no limitations Course Vital Signs 05/11/17 00:08 Temperature 100.7 F H Pulse Rate 101 H Respiratory 16 Rate Blood Pressure 188/103 O2 Sat by Pulse 96 Oximetry Medical Decision Making - Medical Decision Making EKG shows normal sinus rhythm at 96 bpm NC interval is 136 QRS is 84 QT interval 364 QTC is 459. Patient's EKG shows no ST segment elevation or depression or T-wave abnormalities noted Disposition Clinical Impression: Pulmonary edema, Pneumonia Disposition: ADMITTED IP TO THIS HOSP Referrals: Chad Trevino MD [Primary Care Provider] - 1-2 days Time of Disposition: 00:20
[2017-05-11] MEDS ORDERED: NITROGLYCERIN OINT 1 INCH/GM PACKET TOPICAL STA (00:21)
[2017-05-11] MEDS ORDERED: FUROSEMIDE 10 MG/ML 4 ML VIAL IV STA (00:21)
[2017-05-11] MEDS ORDERED: AZITHROMYCIN 500 MG in SODIUM CHLORIDE 0.9% 250 ML IVPB STA (00:23)
[2017-05-11] MEDS ORDERED: PNEUMONIA PROTOCOL UTILIZED 1 EACH MISC PO PRN (00:23)
[2017-05-11 02:53] VITALS: BMI 26.8
[2017-05-11] MEDS ORDERED: ONDANSETRON 4 MG/2 ML VIAL IVP PRN (03:42)
[2017-05-11] MEDS: HYDROcodone/APAP 5-325MG 1 EACH TAB PO PRN ×4 (04:15→23:30)
[2017-05-11 04:22] LABS: Glucose,Whole Blood 225 mg/dL (75-99)
[2017-05-11] MEDS: ACETAMINOPHEN TAB 325 MG TAB PO PRN ×3 (05:29→20:30)
[2017-05-11 05:36] LABS: Appearance,Urine Clear (Clear); Bilirubin,Urine Negative (Negative); Glucose,Urine (UA) 4+ (Negative); Ketones,Urine Trace (Negative); Leukocyte Esterase,Urine Negative (Negative); Mucus,Urine Rare /hpf; Nitrite,Urine Negative (Negative); PH, Urine 7.5 (5.0-8.0); Particle Count 3020; Protein,Urine 4+ (Negative); RBC,Urine 11 /hpf (0-5); Specific Gravity,Urine 1.015 (1.001-1.035); UA Billing (MACRO vs. MICRO) MICRO; Urobilinogen,Urine <2.0 mg/dL (<2.0); WBC,Urine 7 /hpf (0-5)
[2017-05-11] MEDS ORDERED: CARVEDILOL 12.5 MG TAB PO STA (05:50)
[2017-05-11 08:25] LABS: Basophils % (A) 1 %; CH 29.8; CHCM 32.2; Eosinophils % (A) 0 %; HCT 33.5 % (39.0-53.0); HDW 2.57; HGB 10.8 gm/dL (13.0-17.5); Luc # (Auto) 0.11; Luc % (Auto) 1; Lymphocytes % (A) 12 %; MCH 29.9 pg (25.0-35.0); MCHC 32.1 g/dL (31.0-37.0); MCV 93.1 fL (80.0-100.0); Mean Platelet Volume 9.8; Monocytes # (A) 0.5 k/uL (0-1.0); Monocytes % (A) 5 %; Neutrophils # (A) 6.9 k/uL (1.3-7.7); Neutrophils % (A) 81 %; RDW 15.3 % (11.5-15.5); WBC 8.5 k/uL (3.8-10.6); WBC (Perox) 8.92
[2017-05-11 08:45] LABS: Anion Gap 9 mmol/L; Blood Urea Nitrogen 49 mg/dL (9-20); Calcium 8.3 mg/dL (8.4-10.2); Carbon Dioxide 27 mmol/L (22-30); Chloride 97 mmol/L (98-107); Glucose 188 mg/dL (74-99); Potassium 6.1 mmol/L (3.5-5.1); Sodium 133 mmol/L (137-145)
[2017-05-11 08:52] LABS: Glucose,Whole Blood 172 mg/dL (75-99)
[2017-05-11 08:53] LABS: Non-African American GFR(MDRD) 8 (>60 ml/min/1.73 sqM)
[2017-05-11 09:15] LABS: Hepatitis B Surface Ag Index 0.05
[2017-05-11] MEDS ORDERED: GELATIN SPONGE,ABSORB (SMALL) 1 EACH SPONGE ONE (11:30)
[2017-05-11] MEDS: CALCIUM ACETATE 667 MG CAP PO SCH ×3 (11:39→17:37)
[2017-05-11] MEDS: CARVEDILOL 12.5 MG TAB PO SCH ×2 (11:40→20:12)
[2017-05-11] MEDS ORDERED: INSULIN PUMP ACTIVE INSULIN 1 EACH MISC MISCELLANE PRN (11:42)
[2017-05-11] MEDS ORDERED: INSULIN PUMP TARGET GLUCOSE 1 EACH MISC MISCELLANE PRN (11:42)
[2017-05-11] MEDS ORDERED: INSPUCOR MISCELLANE PRN (11:42)
[2017-05-11] MEDS ORDERED: INSULIN PUMP BASAL RATES 1 EACH MISC MISCELLANE PRN (11:42)
[2017-05-11] MEDS ORDERED: INSULIN LISPRO (humaLOG) 300 UNIT/3 ML VIAL SQ PRN (11:42)
[2017-05-11 12:07] LABS: Glucose,Whole Blood 103 mg/dL (75-99)
[2017-05-11] MEDS: INSULIN PUMP MEAL BOLUS 1 UNIT MISC MISCELLANE SCH ×3 (12:45→20:54)
[2017-05-11 14:26] LABS: Hemoglobin A1C 11.1 % (4.2-6.1)
--- NOTE | 2017-05-11 15:22 | CT ---
EXAMINATION TYPE: CT chest wo con DATE OF EXAM: 05/11/2017 COMPARISON: Outside chest x-ray from yesterday. HISTORY: Pneumonia per order. CT DLP: 209.8 mGycm. Automated Exposure Control for Dose Reduction was Utilized. TECHNIQUE: CT scan of the thorax is performed without IV contrast. FINDINGS: LUNGS: There are small to moderate-sized bilateral pleural effusions with associated compressive atel ectasis. Underlying pneumonic consolidation is not excluded. There is more focal masslike 1.7 cm cons olidation in the periphery of the left upper lobe on axial image 18. No pneumothorax is seen bilatera lly. Tracheobronchial tree is patent. MEDIASTINUM: Lack of IV contrast is noted to limit evaluation for mediastinal and especially hilar ad enopathy. There are no definitive greater than 1 cm hilar or mediastinal lymph nodes. There is tiny p ericardial effusion seen. Mild cardiomegaly is present. OTHER: Bilateral gynecomastia is noted. IMPRESSION: 1. Consider CHF exacerbation as there is mild cardiomegaly with small to moderate size bilateral pleu ral effusions. Associated compressive atelectasis is present. Underlying acute infiltrate is felt les s likely but not excluded. There is more suspicious focal pneumonic consolidation laterally in the le ft upper lobe noted.
[2017-05-11 16:56] LABS: Glucose,Whole Blood 68 mg/dL (75-99)
[2017-05-11 17:02] LABS: Glucose,Whole Blood 64 mg/dL (75-99)
[2017-05-11 17:27] LABS: Glucose,Whole Blood 84 mg/dL (75-99)
[2017-05-11 17:29] LABS: Hepatitis B Surface Antibody Reactive (Non-Reactive)
--- NOTE | 2017-05-11 19:16 | CONS ---
CONSULTATION REASON FOR CONSULT: End-stage renal disease. HISTORY OF PRESENT ILLNESS: The patient is a 37-year-old male with history of end-stage renal disease, on hemodialysis on a Sunday, Sunday, Sunday schedule via a right arm AV fistula. He was admitted to the hospital with significant shortness of breath and coughing. He stated that he feels he had put on a lot of weight between his treatments and this was mainly because his mouth was dry. Blood sugars were also elevated. They have been running high according to the patient. He denied any fever, no nausea or vomiting. PAST MEDICAL HISTORY: End-stage renal disease, anemia of chronic disease. CKD bone mineral disorder and diabetes with neuropathy. Dyslipidemia, retinopathy, peripheral vascular disease, history of osteomyelitis, history of peripheral vascular disease. PAST SURGICAL HISTORY: Kidney biopsy showing diabetic nephropathy and left foot surgery, PermCath placement/removal, colonoscopy, right arm AV fistula. SOCIAL HISTORY: Is negative for smoking, drug abuse and alcohol abuse. REVIEW OF SYSTEMS: As per HPI. Other systems negative. PHYSICAL EXAMINATION: On examination, patient is comfortable. Blood pressure is 149/101, heart rate 108 per minute. He has a temp of 101.7. Examination of the heart S1, S2. Examination of the lungs bilateral breath sounds are heard. ABDOMEN: Soft, nontender. Examination of lower extremities shows edema 2+ bilaterally. [employer] exam is grossly intact. LAB: Shows a potassium of 4.7 from Juan. ASSESSMENT: 1. End-stage renal disease, on hemodialysis on a Sunday, Sunday, Sunday schedule. We will arrange for hemodialysis today. 2. Fever, rule out pneumonia. The patient does not have significant urine output. Therefore it will be hard to check a urine. We will also check blood cultures if not done. Currently maintained on Rocephin. 3. Fluid overload. We will arrange for hemodialysis today. 4. Hyperphosphatemia. 5. Chronic kidney disease bone mineral disorder maintained on PhosLo which we will continue. PLAN: The plan is hemodialysis today with increase UF as tolerated. Continue antibiotics and check repeat chest x-ray after dialysis and follow up on the cultures. Thank you for this consultation. We will continue to follow the patient with you during his hospitalization. MMODL / IJN: [id number] /
--- NOTE | 2017-05-11 19:20 | P.CNPUL ---
History of Present Illness Consult date: 05/11/17 Reason for consult: dyspnea History of present illness: 37-year-old male patient presented to the emergency department yesterday because of worsening shortness of breath. The patient was initially sent to the [facility] because of difficulty in breathing. He was quite short of breath initially with activity and then even at rest. At the same time the patient was having frequent coughing. He had low-grade fever. He was found to be significant overload with fluid and a pneumonia was also suspected. The patient was started on a combination of Rocephin and doxycycline. The patient continued to be short of breath and based on that the patient got transferred to our hospital for further evaluation. He was quite lethargic. Overnight he became more hypoxic with he was placed on a Ventimask for that up his pulse ox down to 70%. Subsequently earlier this morning the patient underwent hemodialysis with ultrafiltration of 5 L of fluids and his condition is improved and currently is resting comfortably in bed. No nausea. No vomiting. No diarrhea. No hypotension. The CAT scan of the chest was also reviewed and it showed CHF with mild cardiomegaly and small to moderate-sized better pleural effusion and compressive atelectasis lung bases. There is also an area of patchy pneumonia in the left upper lobe. Review of Systems Constitutional: Reports fatigue, Reports lethargy, Reports poor appetite, Reports weakness, Reports weight gain, Reports weight loss Eyes: bilateral as per HPI, bilateral blurred vision, bilateral decreased vision , denies bulging eye Ears: deny: decreased hearing, ear discharge, earache Cardiovascular: Reports decreased exercise tolerance, Reports dyspnea on exertion, Reports leg edema, Reports shortness of breath Respiratory: Reports cough, Reports dyspnea Gastrointestinal: Reports nausea Genitourinary: Reports as per HPI Musculoskeletal: Denies myalgias Musculoskeletal: absent: ankle pain, ankle stiffness, ankle swelling Integumentary: Denies pruritus, Denies rash Neurological: Denies numbness, Denies weakness Psychiatric: Denies anxiety, Denies depression Endocrine: Denies fatigue, Denies weight change Past Medical History Past Medical History: Diabetes Mellitus, Eye Disorder, GI Bleed, Hyperlipidemia , Hypertension, Renal Disease Additional Past Medical History / Comment(s): IDDM type I, diabetic since he was age 21, insulin pump since 2009, DKA, hiatal hernia, R eye retinal detachment with surgery-vision decreased, incisional disease on hemodialysis. The patient is seeing hemodialysis 3 times a week through a permacath and he has an AV fistula in his right lower extremity. Other medical problems are chronic anemia, previous history of GI bleed secondary to peptic ulcer disease, volume overload, chronic kidney disease bone marrow disorder, peripheral vascular disease, osteomyelitis, diabetic foot ulcers and amputations History of Any Multi-Drug Resistant Organisms: MRSA Date of last positivie culture/infection: 12/20/11 MDRO Source:: Left Foot ( site per nursing history Additional Past Surgical History / Comment(s): renal needle bx, 2008 left great toe amp and 2013 2nd to 5th left foot toes amputated. right chest mediport x2 with removal in 2010 and 2012. right eye retina reattachment sx 03/2015. EGD/ colonoscopy. chronic wound right foot ( tested for MRSA and was Neg) Past Anesthesia/Blood Transfusion Reactions: No Reported Reaction Past Psychological History: Depression Additional Psychological History / Comment(s): Pt resides with his mother. He uses a cane at times. He drives. Smoking Status: Never smoker Past Alcohol Use History: None Reported Additional Past Alcohol Use History / Comment(s): Patient states he is a lifelong nonsmoker. He denies any medical marijuana, marijuana, street drug use. He states he drinks alcohol on a rare basis. Past Drug Use History: None Reported - Past Family History Mother Family Medical History: Hypertension Father Family Medical History: CVA/TIA, Diabetes Mellitus, Hypertension Additional Family Medical History / Comment(s): Father is at the age of 53yrs from a CVA. Medications and Allergies Home Medications Medication Instructions Recorded Confirmed Type DULoxetine HCL [Cymbalta] 120 mg PO HS 05/22/15 05/11/17 History Hydrocodone/Acetaminophen [[place] 1 tab PO Q6HR PRN 12/26/15 05/11/17 History 5-325] Pravastatin Sodium [Pravachol] 40 mg PO HS 12/26/15 05/11/17 History Carvedilol [Coreg] 25 mg PO BID #60 tablet 12/29/15 05/11/17 Rx ARIPiprazole [Abilify] 10 mg PO HS 09/07/16 05/11/17 History Diltiazem Cd [Cardizem CD] 180 mg PO HS 09/07/16 05/11/17 History Omeprazole [PriLOSEC] 40 mg PO HS 09/07/16 05/11/17 History Insulin Aspart (For Pump) [NovoLOG 1.4 - 1.6 units SQ DIRECTED 09/22/1605/11 History (For Pump)] Ergocalciferol [Vitamin D2 50,000 unit PO BROWN 10/18/16 05/11/17 History (DRISDOL)] Calcium Acetate [PhosLo] 667 mg PO TID-W/MEALS #90 cap 10/20/16 05/11/17 Rx Allergies Allergy/AdvReac Type Severity Reaction Status Date / Time atorvastatin calcium AdvReac Nausea & Verified 05/11/17 07:56 [From Lipitor] Vomiting losartan potassium AdvReac Nausea & Verified 05/11/17 07:56 [From Cozaar] Vomiting tramadol AdvReac drowsiness Verified 05/11/17 07:56 Physical Exam Vitals: Vital Signs Temp Pulse Pulse Resp BP BP Pulse Ox 05/11/17 17:09 99 05/11/17 16:02 100.5 F H 97 05/11/17 15:00 101.1 F H 91 16 133/83 99 05/11/17 07:00 98.6 F 93 18 150/98 97 05/11/17 06:44 101.7 F H 108 H 20 149/101 95 05/11/17 05:46 95 05/11/17 05:38 99.9 F H 118 H 187/121 05/11/17 05:20 88 L 05/11/17 05:15 101.5 F H 119 H 85 L 05/11/17 02:24 100.4 F H 110 H 20 151/80 92 L 05/11/17 01:36 100 18 175/102 95 05/11/17 01:12 99 F 100 16 174/100 96 05/11/17 00:58 99.4 F 05/11/17 00:48 96 16 186/103 98 05/11/17 00:08 100.7 F H 101 H 16 188/103 96 Intake and Output 05/11/17 05/11/17 05/11/17 06:59 14:59 22:59 Intake Total 500 600 Balance 500 600 Intake: Amount of Fluid Infused ( 200 ml) Oral 300 600 Other: Voiding Method Toilet Urinal # Voids 1 Weight 94.801 kg 94.801 kg Patient Weight 05/12/17 06:59 Weight 94.801 kg Head exam was generally normal. There was no scleral icterus or corneal arcus. Mucous membranes were moist.Neck was supple and without jugular venous distension, thyromegaly, or carotid bruits. Carotids were easily palpable bilaterally. There was no adenopathy. Lung sounds are diminished in lung bases bilaterally along with some dullness to percussion.Cardiac exam revealed the PMI to be normally situated and sized. The rhythm was regular and no extrasystoles were noted during several minutes of auscultation. The first and second heart sounds were normal and physiologic splitting of the second heart sound was noted. There were no murmurs, rubs, clicks, or gallops.Abdominal exam revealed normal bowel sounds. The abdomen was soft, non-tender, and without masses, organomegaly, or appreciable enlargement of the abdominal aorta. Extremities show no significant edema or cyanosis or clubbing. toe amputation site was noted. The patient is a functional AV fistula in left upper extremity. Results - Laboratory Findings CBC and BMP: 05/11/17 02:57 05/11/17 08:00 Abnormal lab findings: Abnormal Labs 05/11/17 05/11/17 05/11/17 02:57 02:57 04:10 RBC 3.60 L Hgb 10.8 L Hct 33.5 L Sodium Potassium Chloride BUN Creatinine Glucose POC Glucose (mg/dL) 225 H Hemoglobin A1c 11.1 H Calcium Urine Protein Urine Glucose (UA) Urine Ketones Urine Blood Urine RBC Urine WBC Urine Mucus 05/11/17 05/11/17 05/11/17 05:15 08:00 08:48 RBC Hgb Hct Sodium 133 L Potassium 6.1 H Chloride 97 L BUN 49 H Creatinine 7.82 H* Glucose 188 H POC Glucose (mg/dL) 172 H Hemoglobin A1c Calcium 8.3 L Urine Protein 4+ H Urine Glucose (UA) 4+ H Urine Ketones Trace H Urine Blood Small H Urine RBC 11 H Urine WBC 7 H Urine Mucus Rare H 05/11/17 05/11/17 05/11/17 11:59 16:39 17:00 RBC Hgb Hct Sodium Potassium Chloride BUN Creatinine Glucose POC Glucose (mg/dL) 103 H 68 L 64 L Hemoglobin A1c Calcium Urine Protein Urine Glucose (UA) Urine Ketones Urine Blood Urine RBC Urine WBC Urine Mucus - Diagnostic Findings Chest x-ray: image reviewed CT scan - chest: image reviewed Assessment and Plan Plan: Assessment 1 acute hypoxic respiratory failure with marked signs of fluid overload and moderate-sized bilateral pleural effusion with compressive atelectasis of lung bases addition to a patchy pneumonic infiltrate in the left upper lobe. As such the patient's acute hypoxic history failure is multifactorial, most significantly related to fluid overload and partly related to pneumonia. Patient improved significantly with dialysis with ultrafiltration the patient is currently covered with antibiotics. Awaiting cultures. 2 End stage renal disease with hemodialysis 3 times a week, Sunday/Sunday/ Sunday 3 left upper extremity AV fistula 4 volume overload, secondary to renal failure 5 chronic anemia 6 hypertension 7 hyperlipidemia 8 peripheral vascular disease 9 osteomyelitis 10 previous amputation of the left toes/ left foot. 11 diabetes mellitus currently on insulin pump 12 hyperkalemia, postdialysis. Predialysis potassium level was at 6.1 Plan Continue Rocephin and Zithromax. Consider underlying another session of hemodialysis tomorrow. Follow-up chest x-ray. Oxygenation is improved. Hemodynamically stable. We'll continue to follow along with the rest of the consultants. Nephrology is on the case.
[2017-05-11] MEDS ORDERED: ARIPiprazole 10 MG TAB PO SCH (21:00)
[2017-05-11] MEDS ORDERED: PRAVASTATIN SODIUM 40 MG TAB PO SCH (21:00)
[2017-05-11] MEDS ORDERED: DILTIAZEM CD 180 MG CAP.ER.24H PO SCH (21:00)
[2017-05-11] MEDS ORDERED: PANTOPRAZOLE 40 MG TABLET PO SCH (21:00)
[2017-05-11] MEDS ORDERED: DULoxetine HCL 60 MG CAPSULE.DR PO SCH (21:00)
[2017-05-11 21:02] LABS: Glucose,Whole Blood 196 mg/dL (75-99)
[2017-05-11] MEDS ORDERED: AZITHROMYCIN 500 MG TAB PO SCH (23:00)
[2017-05-12] MEDS ORDERED: NITROGLYCERIN SL TABS 0.4 MG TAB SUBLINGUAL PRN (01:57)
[2017-05-12] MEDS: HYDROcodone/APAP 5-325MG 1 EACH TAB PO PRN ×2 (02:25→14:20)
[2017-05-12 02:53] LABS: Creatine Kinase MB 1.5 ng/mL (0.0-2.4)
[2017-05-12 02:56] LABS: Troponin I 0.042 ng/mL (0.000-0.034)
[2017-05-12 07:43] LABS: Glucose,Whole Blood 77 mg/dL (75-99)
[2017-05-12 07:52] LABS: Basophils # (A) 0.1 k/uL (0-0.2); Basophils % (A) 1 %; CH 29.8; CHCM 32.1; Eosinophils # (A) 0.2 k/uL (0-0.7); Eosinophils % (A) 2 %; HCT 30.7 % (39.0-53.0); HDW 2.75; HGB 9.5 gm/dL (13.0-17.5); Luc # (Auto) 0.19; Luc % (Auto) 3; Lymphocytes # (A) 1.5 k/uL (1.0-4.8); Lymphocytes % (A) 21 %; MCH 28.9 pg (25.0-35.0); MCV 93.2 fL (80.0-100.0); Mean Platelet Volume 9.1; Monocytes # (A) 0.5 k/uL (0-1.0); Monocytes % (A) 7 %; Neutrophils # (A) 4.8 k/uL (1.3-7.7); Neutrophils % (A) 66 %; RDW 15.5 % (11.5-15.5); WBC 7.2 k/uL (3.8-10.6); WBC (Perox) 7.16
--- NOTE | 2017-05-12 08:01 | XR ---
EXAMINATION TYPE: XR chest 2V DATE OF EXAM: 05/12/2017 COMPARISON: Chest CT from yesterday. HISTORY: Pneumonia progress study. TECHNIQUE: Frontal and lateral views of the chest are obtained. FINDINGS: There is persistent cardiomegaly with bibasilar opacities consistent with small to moderat e-sized bilateral pleural effusions and associated bibasilar atelectasis and/or infiltrate. Patchy la teral left upper lobe infiltrate on CT is less well seen on plain films. No new infiltrate is seen. N o pneumothorax is evident bilaterally. The osseous structures are intact. IMPRESSION: Suspect CHF exacerbation as there is cardiomegaly with small to moderate-sized bilateral pleural effusions and associated bibasilar atelectasis and/or infiltrate all redemonstrated. No new infiltrate is seen.
[2017-05-12 08:05] LABS: Calcium 8.8 mg/dL (8.4-10.2); Potassium 5.1 mmol/L (3.5-5.1); Total Bilirubin 0.5 mg/dL (0.2-1.3); Total Protein 5.4 g/dL (6.3-8.2)
[2017-05-12] MEDS: INSULIN PUMP MEAL BOLUS 1 UNIT MISC MISCELLANE SCH ×2 (09:26→12:56)
[2017-05-12] MEDS: CARVEDILOL 12.5 MG TAB PO SCH (09:27)
[2017-05-12] MEDS: CALCIUM ACETATE 667 MG CAP PO SCH ×2 (09:27→12:26)
[2017-05-12 10:12] LABS: Glucose,Whole Blood 36 mg/dL (75-99)
--- NOTE | 2017-05-12 10:29 | HP ---
HISTORY AND PHYSICAL SUBJECTIVE: 37-year-old white male that presented to the hospital with shortness of breath. He has had difficulty breathing, activity and at rest. Having frequent coughing, low-grade fever. He had some fluid overload and pneumonia and was started on Rocephin and Zithromax and admitted to the hospital at this time. He is on a Ventimask early this morning for his breathing and he is on dialysis at this time. CAT scan shows moderate- sized pleural effusions, compressive atelectasis of the basilar and patchy pneumonia in the left upper lobe. REVIEW OF SYSTEM: Fourteen point review of systems negative except for fatigue, poor appetite, weakness and weight loss. All other 14-point review of systems is negative. PAST MEDICAL HISTORY: Diabetes mellitus, GI bleed, ophthalmological disorder, dyslipidemia, hypertension, renal disease, right eye retinal detachment surgery, vision decreased, insulin pump since 2009, DKA, history of MRSA, renal needle biopsy, left great toe amputation, 2nd to 5th left foot toes amputated, right chest Mediport x2 for right eye retinal detachment in 03/2005. SOCIAL HISTORY: Does not smoke. Does drink alcohol. No street drugs. The medications are reviewed. Allergies are reviewed. LABS: Shows sodium 133, potassium 6.1, BUN 49, creatinine 7.82. Hemoglobin was 10.8, white cells 6.5. ASSESSMENT: Acute hypoxic respiratory failure, possible congestive heart failure. Increase dialysis return and infiltration. Continue to treat the left upper lobe patchy pneumonia with IV antibiotics. End-stage renal disease, get dialysis. Left upper extremity AV fistula, renal failure, chronic anemia, hypertension, peripheral vascular disease, osteomyelitis, previous amputation of left toes, left foot; diabetes mellitus hyperkalemia. PLAN: Broad-spectrum antibiotics, pulmonary consult, continue with end-stage renal disease dialysis. Nephrology on the case. Updraft treatments. MMODL / IJN: [id number] /
[2017-05-12 10:37] LABS: Glucose,Whole Blood 53 mg/dL (75-99)
[2017-05-12 10:37] LABS: Glucose,Whole Blood 101 mg/dL (75-99)
[2017-05-12 11:57] LABS: Glucose,Whole Blood 308 mg/dL (75-99)
--- NOTE | 2017-05-12 12:40 | P.PN ---
Subjective Principal diagnosis: This is a 37-year-old male with ESRD on dialysis Sunday, came in because of shortness of breath and had 5 L taken off yesterday on dialysis here in the hospital. Is somewhat better but continues to have a dry cough. Pulses felt feverish. No nausea vomiting appetite is poor. He is known with a biopsy proven diabetic nephropathy, type 1 diabetes at age 21 , and history of eye disease with retinal detachment. The past she's had MRSA. He has had a left TMA Is able to walk and ambulate without any problem.. Objective - Vital Signs Vital signs: Vital Signs Temp 98.6 F 05/12/17 07:00 Pulse 64 05/12/17 08:00 Resp 18 05/12/17 08:00 BP 119/72 05/12/17 07:00 Pulse Ox 97 05/12/17 07:00 Intake & Output 05/11/17 05/12/17 05/12/17 18:59 06:59 18:59 Intake Total 600 300 Output Total 0 Balance 600 0 300 Weight 94.801 kg 91.626 kg Intake: Oral 600 300 Output: Urine 0 Other: Voiding Method Toilet Urinal # Voids 1 # Bowel Movements 1 On examination he is awake alert oriented. HEENT exam no JVP neck is supple no facial asymmetry Lungs are significant for an occasional crackle at the left base more than on the right. Good air entry bilaterally no dullness percussion Heart sounds are unremarkable for any murmur rub gallop Abdomen soft nontender Extremity exam was mild edema. He has remote left TMA Neurologically awake alert oriented was able to walk from the bathroom easily - Labs CBC & Chem 7: 05/12/17 07:11 05/12/17 07:11 Labs: Abnormal Lab Results - Last 24 Hours (Table) 05/11/17 05/11/17 05/11/17 Range/Units 02:57 08:00 16:39 RBC (4.30-5.90) m/uL Hgb (13.0-17.5) gm/dL Hct (39.0-53.0) % Plt Count (150-450) k/uL Sodium (137-145) mmol/L BUN (9-20) mg/dL Creatinine (0.66-1.25) mg/dL Glucose (74-99) mg/dL POC Glucose (mg/dL) 68 L (75-99) mg/dL Hemoglobin A1c 11.1 H (4.2-6.1) % Troponin I (0.000-0.034) ng/mL Total Protein (6.3-8.2) g/dL Albumin (3.5-5.0) g/dL Hep Bs Antibody Reactive H (Non-Reactive) 05/11/17 05/11/17 05/12/17 Range/Units 17:00 20:44 02:05 RBC (4.30-5.90) m/uL Hgb (13.0-17.5) gm/dL Hct (39.0-53.0) % Plt Count (150-450) k/uL Sodium (137-145) mmol/L BUN (9-20) mg/dL Creatinine (0.66-1.25) mg/dL Glucose (74-99) mg/dL POC Glucose (mg/dL) 64 L 196 H (75-99) mg/dL Hemoglobin A1c (4.2-6.1) % Troponin I 0.042 H* (0.000-0.034) ng/mL Total Protein (6.3-8.2) g/dL Albumin (3.5-5.0) g/dL Hep Bs Antibody (Non-Reactive) 05/12/17 05/12/17 05/12/17 Range/Units 07:11 07:11 07:11 RBC 3.30 L (4.30-5.90) m/uL Hgb 9.5 L (13.0-17.5) gm/dL Hct 30.7 L (39.0-53.0) % Plt Count 144 L (150-450) k/uL Sodium 135 L (137-145) mmol/L BUN 37 H (9-20) mg/dL Creatinine 7.62 H* (0.66-1.25) mg/dL Glucose 72 L (74-99) mg/dL POC Glucose (mg/dL) (75-99) mg/dL Hemoglobin A1c (4.2-6.1) % Troponin I 0.036 H* (0.000-0.034) ng/mL Total Protein 5.4 L (6.3-8.2) g/dL Albumin 3.1 L (3.5-5.0) g/dL Hep Bs Antibody (Non-Reactive) 05/12/17 05/12/17 05/12/17 Range/Units 10:02 10:19 10:35 RBC (4.30-5.90) m/uL Hgb (13.0-17.5) gm/dL Hct (39.0-53.0) % Plt Count (150-450) k/uL Sodium (137-145) mmol/L BUN (9-20) mg/dL Creatinine (0.66-1.25) mg/dL Glucose (74-99) mg/dL POC Glucose (mg/dL) 36 L 53 L 101 H (75-99) mg/dL Hemoglobin A1c (4.2-6.1) % Troponin I (0.000-0.034) ng/mL Total Protein (6.3-8.2) g/dL Albumin (3.5-5.0) g/dL Hep Bs Antibody (Non-Reactive) 05/12/17 Range/Units 11:55 RBC (4.30-5.90) m/uL Hgb (13.0-17.5) gm/dL Hct (39.0-53.0) % Plt Count (150-450) k/uL Sodium (137-145) mmol/L BUN (9-20) mg/dL Creatinine (0.66-1.25) mg/dL Glucose (74-99) mg/dL POC Glucose (mg/dL) 308 H (75-99) mg/dL Hemoglobin A1c (4.2-6.1) % Troponin I (0.000-0.034) ng/mL Total Protein (6.3-8.2) g/dL Albumin (3.5-5.0) g/dL Hep Bs Antibody (Non-Reactive) Microbiology - Last 24 Hours (Table) 05/11/17 02:57 Blood Culture - Preliminary Blood No Growth after 24 hours 05/11/17 05:15 Urine Culture - Preliminary Urine,Voided Assessment and Plan Plan: Impression. 1. ESRD on dialysis Sunday. 2. Admitted with shortness of breath and pneumonia possibly an element of congestive heart failure. Status post dialysis yesterday with 5 L ultrafiltrate with improvement. 3. History of left transmetatarsal amputation, remote. 4. History of type 1 diabetes with retinopathy. 5. Anemia of ESRD. Recommendation. 1. Check iron saturation. 2. Next dialysis will be Sunday thereafter tomorrow. 3. Watch hemoglobin. 4. Maintain Epogen, start 4000 units 3 times a week
--- NOTE | 2017-05-12 13:48 | P.PN ---
Subjective 37-year-old male patient presented to the emergency department yesterday because of worsening shortness of breath. The patient was initially sent to the [facility] hospital because of difficulty in breathing. He was quite short of breath initially with activity and then even at rest. At the same time the patient was having frequent coughing. He had low-grade fever. He was found to be significant overload with fluid and a pneumonia was also suspected. The patient was started on a combination of Rocephin and doxycycline. The patient continued to be short of breath and based on that the patient got transferred to our hospital for further evaluation. He was quite lethargic. Overnight he became more hypoxic with he was placed on a Ventimask for that up his pulse ox down to 70%. Subsequently earlier this morning the patient underwent hemodialysis with ultrafiltration of 5 L of fluids and his condition is improved and currently is resting comfortably in bed. No nausea. No vomiting. No diarrhea. No hypotension. The CAT scan of the chest was also reviewed and it showed CHF with mild cardiomegaly and small to moderate-sized better pleural effusion and compressive atelectasis lung bases. There is also an area of patchy pneumonia in the left upper lobe. On 2016 the patient is doing well. He has some minimal dry cough. No significant shortness of breath. He has been complaining some on and off atypical chest pain and for that reason a cardiology consultation has been requested. Nephrology is also on the case and no plans to undergo dialysis today. He is on an insulin pump for blood sugar control. Objective - Vital Signs Vital signs: Vital Signs Temp 98.6 F 05/12/17 07:00 Pulse 64 05/12/17 08:00 Resp 18 05/12/17 08:00 BP 119/72 05/12/17 07:00 Pulse Ox 97 05/12/17 07:00 Intake & Output 05/11/17 05/12/17 05/12/17 18:59 06:59 18:59 Intake Total 600 300 Output Total 0 Balance 600 0 300 Weight 94.801 kg 91.626 kg Intake: Oral 600 300 Output: Urine 0 Other: Voiding Method Toilet Urinal # Voids 1 # Bowel Movements 1 - Exam Head exam was generally normal. There was no scleral icterus or corneal arcus. Mucous membranes were moist.Neck was supple and without jugular venous distension, thyromegaly, or carotid bruits. Carotids were easily palpable bilaterally. There was no adenopathy. Lung sounds are diminished in lung bases bilaterally along with some dullness to percussion.Cardiac exam revealed the PMI to be normally situated and sized. The rhythm was regular and no extrasystoles were noted during several minutes of auscultation. The first and second heart sounds were normal and physiologic splitting of the second heart sound was noted. There were no murmurs, rubs, clicks, or gallops.Abdominal exam revealed normal bowel sounds. The abdomen was soft, non-tender, and without masses, organomegaly, or appreciable enlargement of the abdominal aorta. Extremities show no significant edema or cyanosis or clubbing. toe amputation site was noted. The patient is a functional AV fistula in left upper extremity. - Labs CBC & Chem 7: 05/12/17 07:11 05/12/17 07:11 Labs: Abnormal Lab Results - Last 24 Hours (Table) 05/11/17 05/11/17 05/11/17 Range/Units 02:57 08:00 16:39 RBC (4.30-5.90) m/uL Hgb (13.0-17.5) gm/dL Hct (39.0-53.0) % Plt Count (150-450) k/uL Sodium (137-145) mmol/L BUN (9-20) mg/dL Creatinine (0.66-1.25) mg/dL Glucose (74-99) mg/dL POC Glucose (mg/dL) 68 L (75-99) mg/dL Hemoglobin A1c 11.1 H (4.2-6.1) % Troponin I (0.000-0.034) ng/mL Total Protein (6.3-8.2) g/dL Albumin (3.5-5.0) g/dL Hep Bs Antibody Reactive H (Non-Reactive) 05/11/17 05/11/17 05/12/17 Range/Units 17:00 20:44 02:05 RBC (4.30-5.90) m/uL Hgb (13.0-17.5) gm/dL Hct (39.0-53.0) % Plt Count (150-450) k/uL Sodium (137-145) mmol/L BUN (9-20) mg/dL Creatinine (0.66-1.25) mg/dL Glucose (74-99) mg/dL POC Glucose (mg/dL) 64 L 196 H (75-99) mg/dL Hemoglobin A1c (4.2-6.1) % Troponin I 0.042 H* (0.000-0.034) ng/mL Total Protein (6.3-8.2) g/dL Albumin (3.5-5.0) g/dL Hep Bs Antibody (Non-Reactive) 05/12/17 05/12/17 05/12/17 Range/Units 07:11 07:11 07:11 RBC 3.30 L (4.30-5.90) m/uL Hgb 9.5 L (13.0-17.5) gm/dL Hct 30.7 L (39.0-53.0) % Plt Count 144 L (150-450) k/uL Sodium 135 L (137-145) mmol/L BUN 37 H (9-20) mg/dL Creatinine 7.62 H* (0.66-1.25) mg/dL Glucose 72 L (74-99) mg/dL POC Glucose (mg/dL) (75-99) mg/dL Hemoglobin A1c (4.2-6.1) % Troponin I 0.036 H* (0.000-0.034) ng/mL Total Protein 5.4 L (6.3-8.2) g/dL Albumin 3.1 L (3.5-5.0) g/dL Hep Bs Antibody (Non-Reactive) 05/12/17 05/12/17 05/12/17 Range/Units 10:02 10:19 10:35 RBC (4.30-5.90) m/uL Hgb (13.0-17.5) gm/dL Hct (39.0-53.0) % Plt Count (150-450) k/uL Sodium (137-145) mmol/L BUN (9-20) mg/dL Creatinine (0.66-1.25) mg/dL Glucose (74-99) mg/dL POC Glucose (mg/dL) 36 L 53 L 101 H (75-99) mg/dL Hemoglobin A1c (4.2-6.1) % Troponin I (0.000-0.034) ng/mL Total Protein (6.3-8.2) g/dL Albumin (3.5-5.0) g/dL Hep Bs Antibody (Non-Reactive) 05/12/17 Range/Units 11:55 RBC (4.30-5.90) m/uL Hgb (13.0-17.5) gm/dL Hct (39.0-53.0) % Plt Count (150-450) k/uL Sodium (137-145) mmol/L BUN (9-20) mg/dL Creatinine (0.66-1.25) mg/dL Glucose (74-99) mg/dL POC Glucose (mg/dL) 308 H (75-99) mg/dL Hemoglobin A1c (4.2-6.1) % Troponin I (0.000-0.034) ng/mL Total Protein (6.3-8.2) g/dL Albumin (3.5-5.0) g/dL Hep Bs Antibody (Non-Reactive) Microbiology - Last 24 Hours (Table) 05/11/17 05:15 Urine Culture - Final Urine,Voided 05/11/17 02:57 Blood Culture - Preliminary Blood No Growth after 24 hours Assessment and Plan Plan: Assessment 1 acute hypoxic respiratory failure with marked signs of fluid overload and moderate-sized bilateral pleural effusion with compressive atelectasis of lung bases addition to a patchy pneumonic infiltrate in the left upper lobe. As such the patient's acute hypoxic history failure is multifactorial, most significantly related to fluid overload and partly related to pneumonia. Patient improved significantly with dialysis with ultrafiltration the patient is currently covered with antibiotics. The patient is also having some atypical chest pain and cardiology consultation has been requested. No fever. No chills. Respiratory status is stable. 2 End stage renal disease with hemodialysis 3 times a week, Sunday/Sunday/ Sunday 3 left upper extremity AV fistula 4 volume overload, secondary to renal failure 5 chronic anemia 6 hypertension 7 hyperlipidemia 8 peripheral vascular disease 9 osteomyelitis 10 previous amputation of the left toes/ left foot. 11 diabetes mellitus currently on insulin pump 12 hyperkalemia, postdialysis. Predialysis potassium level was improved and is down to 5.1. Plan Awaiting a cardiology evaluation. Pulmonary status is stable. No plans for dialysis today. There is some minimal troponin leak. EKG was nonspecific it showed some possible left atrial enlargement and normal sinus rhythm on admission.
[2017-05-12 14:58] VITALS: BP 165/87; PULSE 85; RESP 16; TEMP 98.4
[2017-05-12] MEDS ORDERED: DARBEPOETIN ALFA 25 MCG/0.42 ML SYRINGE SQ SCH (18:00)
--- NOTE | 2017-05-12 19:29 | P.DS ---
Providers Date of admission: 05/11/17 00:23 Attending physician: Poncho Amor Consults: 05/11/17 00:23 Consult Physician Routine Consulting Provider: Jojo Charles Consult Reason/Comments: Renal failure Do you want consulting provider notified?: Yes 05/11/17 03:38 Consult Physician Routine Consulting Provider: Roberto Helm Consult Reason/Comments: Pneumonia Do you want consulting provider notified?: Yes, Notify in am 05/12/17 01:58 Consult Physician Routine Consulting Provider: [facility] Consult Reason/Comments: chest pain Do you want consulting provider notified?: Yes, Notify in am Primary care physician: [facility] Course: 1 acute hypoxic respiratory failure. Secondary to fluid overload and concern for a pneumonic process 2 End stage renal disease with hemodialysis 3 times a week, Sunday/Sunday/ Sunday 3 left upper extremity AV fistula 4 volume overload, secondary to renal failure 5 chronic anemia 6 hypertension 7 hyperlipidemia 8 peripheral vascular disease 9 osteomyelitis 10 previous amputation of the left toes/ left foot. 11 diabetes mellitus currently on insulin pump with intermittent episodes of hypoglycemia however patient verbalizes to understand managing his glucose levels. 12 hyperkalemia, improved Brief Hospital course Patient had had 5 L of fluid removed via ultrafiltration vision is set up with Sunday of hemodialysis Patient did have some atypical chest pain however is improved at the time of my evaluation no EKG changes with ST-T wave elevations are noted patient is recommended to follow-up with a diamond expert on outpatient basis. Patient is able to family without any recurrence of symptoms He is discharged home in a stable condition patient is also recommended complete a course of Ceftin as patient was seen by slack cooper during the hospital physician was thought was some underlying pneumonic processes as well from the chest computed tomography scan On the day of discharge lungs appear to be clear to auscultation no rhonchi wheezing or crackles Palpable thrill in the left before meals Abdomen soft nontender no organomegaly. Plan - Discharge Summary New Discharge Prescriptions: New Cefuroxime [Ceftin] 250 mg PO BID #10 tablet Continue DULoxetine HCL [Cymbalta] 120 mg PO HS Pravastatin Sodium [Pravachol] 40 mg PO HS Hydrocodone/Acetaminophen [[place] 5-325] 1 tab PO Q6HR PRN PRN Reason: Pain Carvedilol [Coreg] 25 mg PO BID #60 tablet Diltiazem Cd [Cardizem CD] 180 mg PO HS Omeprazole [PriLOSEC] 40 mg PO HS ARIPiprazole [Abilify] 10 mg PO HS Insulin Aspart (For Pump) [NovoLOG (For Pump)] 1.4 - 1.6 units SQ DIRECTED Ergocalciferol [Vitamin D2 (DRISDOL)] 50,000 unit PO BROWN Calcium Acetate [PhosLo] 667 mg PO TID-W/MEALS #90 cap Discharge Medication List DULoxetine HCL [Cymbalta] 120 mg PO HS 05/22/15 [History] Hydrocodone/Acetaminophen [[place] 5-325] 1 tab PO Q6HR PRN 12/26/15 [History] Pravastatin Sodium [Pravachol] 40 mg PO HS 12/26/15 [History] Carvedilol [Coreg] 25 mg PO BID #60 tablet 12/29/15 [Rx] ARIPiprazole [Abilify] 10 mg PO HS 09/07/16 [History] Diltiazem Cd [Cardizem CD] 180 mg PO HS 09/07/16 [History] Omeprazole [PriLOSEC] 40 mg PO HS 09/07/16 [History] Insulin Aspart (For Pump) [NovoLOG (For Pump)] 1.4 - 1.6 units SQ DIRECTED [History] Ergocalciferol [Vitamin D2 (DRISDOL)] 50,000 unit PO BROWN 10/18/16 [History] Calcium Acetate [PhosLo] 667 mg PO TID-W/MEALS #90 cap 10/20/16 [Rx] Cefuroxime [Ceftin] 250 mg PO BID #10 tablet 05/12/17 [Rx] Follow up Appointment(s)/Referral(s): Marcos Dominguez MD [STAFF PHYSICIAN] - 1 Week Chad Trevino MD [Primary Care Provider] - 1-2 days Discharge Disposition: HOME SELF-CARE
[2017-05-13] MEDS ORDERED: ERGOCALCIFEROL 50,000 UNIT CAP PO SCH (09:00)
== END 2017-05-12 16:20 | disposition home or self-care (01) | DRG 193 ==
LOC: EC 00:03 → 4MS4W 00:23
PROVIDERS: ADMIT Family Medicine; ATTEND Family Medicine
PROC: 5A1D00Z (ICD-10-PCS; principal; 2017-05-11)
DX: J18.9 Pneumonia, unspecified organism (principal); N18.6 End stage renal disease; J96.01 Acute respiratory failure with hypoxia; I13.2 Hypertensive heart and chronic kidney disease with heart failure and with stage 5 chronic kidney disease, or end stage renal disease; E10.21 Type 1 diabetes mellitus with diabetic nephropathy; E10.40 Type 1 diabetes mellitus with diabetic neuropathy, unspecified; E10.22 Type 1 diabetes mellitus with diabetic chronic kidney disease; E10.649 Type 1 diabetes mellitus with hypoglycemia without coma; I50.9 Heart failure, unspecified; E10.51 Type 1 diabetes mellitus with diabetic peripheral angiopathy without gangrene; E10.319 Type 1 diabetes mellitus with unspecified diabetic retinopathy without macular edema; E83.39 Other disorders of phosphorus metabolism; E87.5 Hyperkalemia; Z99.2 Dependence on renal dialysis; E78.5 Hyperlipidemia, unspecified; H54.7 Unspecified visual loss; F32.9 Major depressive disorder, single episode, unspecified; D63.8 Anemia in other chronic diseases classified elsewhere; K44.9 Diaphragmatic hernia without obstruction or gangrene; Z79.4 Long term (current) use of insulin; Z79.899 Other long term (current) drug therapy; Z96.41 Presence of insulin pump (external) (internal); Z86.14 Personal history of Methicillin resistant Staphylococcus aureus infection; Z89.412 Acquired absence of left great toe; Z89.429 Acquired absence of other toe(s), unspecified side; Z88.8 Allergy status to other drugs, medicaments and biological substances; Z87.11 Personal history of peptic ulcer disease; Z83.3 Family history of diabetes mellitus
CPT/HCPCS: 71020; 71250; 80048; 80053; 81001; 82550; 82553; 83036; 84443; 84484; 85025; 86704; 86706; 87040; 87086; 87340; 90935; 93005; 94760; 96365; 96375; 99285

== ENCOUNTER 2017-06-06 01:18 | Inpatient (IN) | payer MEDICARE, OTHER ==
[2017-06-06] MEDS ORDERED: hydrALAZINE HCL 20 MG/ML 1 ML VIAL IVP STA ×2 (01:27→02:13)
[2017-06-06 01:49] LABS: Glucose,Whole Blood 344 mg/dL (75-99)
[2017-06-06] MEDS ORDERED: NITROGLYCERIN-D5W PMX 50 MG in DEXTROSE/WATER 1 250ML.BAG IV ONE (01:52)
--- NOTE | 2017-06-06 01:52 | ED ---
General Adult HPI - General Chief complaint: Recheck/Abnormal Lab/Rx Stated complaint: Hypertension Time Seen by Provider: 06/06/17 01:20 Source: EMS, RN notes reviewed Mode of arrival: EMS Limitations: no limitations - History of Present Illness Initial comments: This is a 37-year-old male with past medical history significant for diabetes and renal failure. Patient gets hemodialysis. Patient states he missed his last hemodialysis. He woke up today and was short of breath and he Continually worse he wants [facility] at which point time he was diagnosed with fluid overload and hypertension. Patient was sent to our hospital for admission and to see Dr. Charles. Patient currently states he is feeling better on oxygen and only feels mildly short of breath. Patient denies any chest pain or palpitations. Patient denies any abdominal pain patient denies any vomiting or diarrhea. Patient denies any recent fever chills or cough. Patient denies any recent injury or trauma. Patient denies headache patient denies numbness weakness. Patient denies lightheadedness dizziness or near syncopal episode. - Related Data Home Medications Medication Instructions Recorded Confirmed DULoxetine HCL [Cymbalta] 120 mg PO HS 05/22/15 05/11/17 Hydrocodone/Acetaminophen [[place] 1 tab PO Q6HR PRN 12/26/15 05/11/17 5-325] Pravastatin Sodium [Pravachol] 40 mg PO HS 12/26/15 05/11/17 ARIPiprazole [Abilify] 10 mg PO HS 09/07/16 05/11/17 Diltiazem Cd [Cardizem CD] 180 mg PO HS 09/07/16 05/11/17 Omeprazole [PriLOSEC] 40 mg PO HS 09/07/16 05/11/17 Insulin Aspart (For Pump) [NovoLOG 1.4 - 1.6 units SQ DIRECTED 09/22/1605/11 (For Pump)] Ergocalciferol [Vitamin D2 50,000 unit PO BROWN 10/18/16 05/11/17 (DRISDOL)] Previous Rx's Medication Instructions Recorded Carvedilol [Coreg] 25 mg PO BID #60 tablet 12/29/15 Calcium Acetate [PhosLo] 667 mg PO TID-W/MEALS #90 cap 10/20/16 Cefuroxime [Ceftin] 250 mg PO BID #10 tablet 05/12/17 Allergies Allergy/AdvReac Type Severity Reaction Status Date / Time atorvastatin calcium AdvReac Nausea & Verified 06/06/17 01:23 [From Lipitor] Vomiting losartan potassium AdvReac Nausea & Verified 06/06/17 01:23 [From Cozaar] Vomiting tramadol AdvReac drowsiness Verified 06/06/17 01:23 Review of Systems ROS Statement: Those systems with pertinent positive or pertinent negative responses have been documented in the HPI. ROS Other: All systems not noted in ROS Statement are negative. Past Medical History Past Medical History: Diabetes Mellitus, Eye Disorder, GI Bleed, Hyperlipidemia , Hypertension, Renal Disease Additional Past Medical History / Comment(s): IDDM type I, diabetic since he was age 21, insulin pump since 2009, DKA, hiatal hernia, R eye retinal detachment with surgery-vision decreased, incisional disease on hemodialysis. The patient is seeing hemodialysis 3 times a week through a permacath and he has an AV fistula in his right lower extremity. Other medical problems are chronic anemia, previous history of GI bleed secondary to peptic ulcer disease, volume overload, chronic kidney disease bone marrow disorder, peripheral vascular disease, osteomyelitis, diabetic foot ulcers and amputations History of Any Multi-Drug Resistant Organisms: MRSA Date of last positivie culture/infection: 12/20/11 MDRO Source:: Left Foot ( site per nursing history Additional Past Surgical History / Comment(s): renal needle bx, 2008 left great toe amp and 2013 2nd to 5th left foot toes amputated. right chest mediport x2 with removal in 2010 and 2012. right eye retina reattachment sx 03/2015. EGD/ colonoscopy. chronic wound right foot ( tested for MRSA and was Neg) Past Anesthesia/Blood Transfusion Reactions: No Reported Reaction Past Psychological History: Depression Smoking Status: Never smoker Past Alcohol Use History: None Reported Past Drug Use History: None Reported - Past Family History Mother Family Medical History: Hypertension Father Family Medical History: CVA/TIA, Diabetes Mellitus, Hypertension Additional Family Medical History / Comment(s): Father is at the age of 53yrs from a CVA. General Exam - General Exam Comments Initial Comments: GENERAL: Patient is well-developed and well-nourished. Patient is nontoxic and well- hydrated and is in mild distress. ENT: Neck is soft and supple. No significant lymphadenopathy is noted. Oropharynx is clear. Moist mucous membranes. Neck has full range of motion without eliciting any pain. EYES: The sclera were anicteric and conjunctiva were pink and moist. Extraocular movements were intact and pupils were equal round and reactive to light. Eyelids were unremarkable. PULMONARY: Patient has crackles bilaterally CARDIOVASCULAR: There is a regular rate and rhythm without any murmurs gallops or rubs. ABDOMEN: Soft and nontender with normal bowel sounds. No palpable organomegaly was noted. There is no palpable pulsatile mass. SKIN: Skin is clear with no lesions or rashes and otherwise unremarkable. NEUROLOGIC: Patient is alert and oriented x3. Cranial nerves II through XII are grossly intact. Motor and sensory are also intact. Normal speech, volume and content. Symmetrical smile. MUSCULOSKELETAL: Normal extremities with adequate strength and full range of motion. 1+ edema bilaterally LYMPHATICS: No significant lymphadenopathy is noted PSYCHIATRIC: Normal psychiatric evaluation. Normal interpersonal interactions appears functionally intact in deals appropriately with others. No signs of depression. No signs of anxiety. Limitations: no limitations Course Vital Signs 06/06/17 01:19 Temperature 97.7 F Pulse Rate 93 Respiratory 20 Rate Blood Pressure 204/106 O2 Sat by Pulse 100 Oximetry Medical Decision Making - Medical Decision Making EKG shows normal sinus rhythm at 92 bpm HI interval 276 QRS is 88 QT interval 390 QTC is 482. Patient's EKG shows no ST segment elevation or depression I reviewed the patient's lab work and looked at the chest x-ray and it did show pulmonary edema. I admitted the patient to Dr. Lake wrote admitting orders I consult Dr. Charles. Disposition Clinical Impression: Hyperglycemia, Pulmonary edema, Chronic renal failure, Hypertension Disposition: ADMITTED IP TO THIS HOSP Referrals: Chad Trevino MD [Primary Care Provider] - 1-2 days Time of Disposition: 01:52
[2017-06-06] MEDS ORDERED: NITROGLYCERIN OINT 1 INCH/GM PACKET TOPICAL STA (02:12)
[2017-06-06 03:44] VITALS: BMI 25.7
[2017-06-06 04:54] LABS: Glucose,Whole Blood 285 mg/dL (75-99)
[2017-06-06] MEDS ORDERED: ONDANSETRON 4 MG/2 ML VIAL IVP PRN (06:05)
[2017-06-06] MEDS: NITROGLYCERIN OINT 1 INCH/GM PACKET TOPICAL SCH ×3 (06:14→17:20)
[2017-06-06] MEDS: hydrALAZINE HCL 20 MG/ML 1 ML VIAL IVP PRN (06:14)
[2017-06-06] MEDS: CARVEDILOL 12.5 MG TAB PO SCH ×2 (06:14→17:21)
[2017-06-06 06:15] LABS: Glucose,Whole Blood 321 mg/dL (75-99)
[2017-06-06 07:26] LABS: CH 28.7; CHCM 30.5; HCT 34.2 % (39.0-53.0); HDW 2.67; HGB 10.3 gm/dL (13.0-17.5); Hypochromasia Moderate; MCH 28.6 pg (25.0-35.0); MCHC 30.2 g/dL (31.0-37.0); MCV 94.7 fL (80.0-100.0); Mean Platelet Volume 8.2; RBC 3.61 m/uL (4.30-5.90); RDW 15.6 % (11.5-15.5); WBC 8.6 k/uL (3.8-10.6)
[2017-06-06 07:43] LABS: Calcium 8.4 mg/dL (8.4-10.2); Potassium 4.5 mmol/L (3.5-5.1)
[2017-06-06] MEDS: INSULIN LISPRO (humaLOG) 300 UNIT/3 ML VIAL SQ SCH ×4 (08:01→21:28)
[2017-06-06] MEDS ORDERED: Insulin Aspart (For Pump) 100 UNIT/ML VIAL SQ-PUMP SCH (08:45)
[2017-06-06] MEDS ORDERED: ENOXAPARIN 40 MG/0.4 ML SYRINGE SQ SCH (09:00)
--- NOTE | 2017-06-06 09:25 | P.NPCON ---
History of Present Illness - Reason for Consult end stage renal disease - History of Present Illness Reason for consultation: End-stage renal disease History of present illness: Patient is a 37-year-old male seen in renal consultation for end-stage renal disease. He is maintained on hemodialysis on a Sunday schedule via right upper extremity AV fistula. Patient woke up yesterday morning and went [facility] in [place] due to dyspnea. Apparently his chest x-ray today revealed volume overload. Patient states he's been feeling quite nauseous but denies any vomiting. No diarrhea. No fever or chills. No cough. His blood sugars have been running high and were greater than 400 when he initially went to the ER in [place]. This morning his blood sugar was 321. Patient states his last hemodialysis was on Sunday. His blood pressure was also noted to be quite elevated in the systolic 200s. He did receive Corag and hydralazine was also added. Chance pressures are now better controlled. Vital signs are stable. General: The patient appeared well nourished and normally developed. HEENT: Head exam is unremarkable. Neck is without jugular venous distension. LUNGS: Lungs are clear to auscultation and percussion. Breath sounds decreased. HEART: Rate and Rhythm are regular. First and second heart sounds normal. No murmurs, rubs or gallops. ABDOMEN: Abdominal exam reveals normal bowel sounds. Non-tender and non- distended. EXTREMITITES: No clubbing, cyanosis, or edema. Past Medical History Past Medical History: Diabetes Mellitus, Eye Disorder, GI Bleed, Hyperlipidemia , Hypertension, Renal Disease Additional Past Medical History / Comment(s): IDDM type I, diabetic since he was age 21, insulin pump since 2009, DKA, hiatal hernia, R eye retinal detachment with surgery-vision decreased, incisional disease on hemodialysis. The patient is seeing hemodialysis 3 times a week through a permacat and he has an AV fistula in his right lower extremity. Other medical problems are chronic anemia, previous history of GI bleed secondary to peptic ulcer disease, volume overload, chronic kidney disease bone marrow disorder, peripheral vascular disease, osteomyelitis, diabetic foot ulcers and amputations History of Any Multi-Drug Resistant Organisms: MRSA Date of last positivie culture/infection: 12/20/11 MDRO Source:: Left Foot ( site per nursing history Additional Past Surgical History / Comment(s): renal needle bx, 2008 left great toe amp and 2013 2nd to 5th left foot toes amputated. right chest mediport x2 with removal in 2010 and 2012. right eye retina reattachment sx 03/2015. EGD/ colonoscopy. chronic wound right foot ( tested for MRSA and was Neg) Past Anesthesia/Blood Transfusion Reactions: No Reported Reaction Past Psychological History: Depression Additional Psychological History / Comment(s): Pt resides with his mother. He uses a cane at times. He drives. Smoking Status: Never smoker Past Alcohol Use History: None Reported Additional Past Alcohol Use History / Comment(s): Patient states he is a lifelong nonsmoker. He denies any medical marijuana, marijuana, street drug use. He states he drinks alcohol on a rare basis. Past Drug Use History: None Reported - Past Family History Mother Family Medical History: Hypertension Father Family Medical History: CVA/TIA, Diabetes Mellitus, Hypertension Additional Family Medical History / Comment(s): Father is at the age of 53yrs from a CVA. Medications and Allergies Home Medications Medication Instructions Recorded Confirmed Type DULoxetine HCL [Cymbalta] 120 mg PO HS 05/22/15 06/06/17 History Hydrocodone/Acetaminophen [[place] 1 tab PO Q6HR PRN 12/26/15 06/06/17 History 5-325] Pravastatin Sodium [Pravachol] 40 mg PO HS 12/26/15 06/06/17 History Carvedilol [Coreg] 25 mg PO BID #60 tablet 12/29/15 06/06/17 Rx ARIPiprazole [Abilify] 10 mg PO HS 09/07/16 06/06/17 History Diltiazem Cd [Cardizem CD] 180 mg PO HS 09/07/16 06/06/17 History Omeprazole [PriLOSEC] 40 mg PO HS 09/07/16 06/06/17 History Insulin Aspart (For Pump) [NovoLOG 1.4 - 1.6 units SQ DIRECTED 09/22/1606/06 History (For Pump)] Ergocalciferol [Vitamin D2 50,000 unit PO BROWN 10/18/16 06/06/17 History (DRISDOL)] Calcium Acetate [PhosLo] 667 mg PO TID-W/MEALS #90 cap 10/20/16 05/11/17 Rx Allergies Allergy/AdvReac Type Severity Reaction Status Date / Time atorvastatin calcium AdvReac Nausea & Verified 06/06/17 01:23 [From Lipitor] Vomiting losartan potassium AdvReac Nausea & Verified 06/06/17 01:23 [From Cozaar] Vomiting tramadol AdvReac drowsiness Verified 06/06/17 01:23 Physical Exam Vitals: Vital Signs Temp Pulse Pulse Resp BP BP Pulse Ox 06/06/17 08:00 98.3 F 112 H 16 167/78 97 06/06/17 07:00 168/78 06/06/17 06:30 181/87 06/06/17 06:15 202/104 06/06/17 06:00 223/116 06/06/17 05:48 200/114 06/06/17 05:00 196/118 06/06/17 04:30 206/110 06/06/17 04:15 197/110 06/06/17 04:00 98.0 F 108 H 18 227/122 96 06/06/17 03:03 98.1 F 100 18 188/95 96 06/06/17 02:49 92 20 182/93 06/06/17 02:34 90 20 176/88 98 06/06/17 02:19 97 20 174/86 98 06/06/17 02:02 96 20 186/93 97 06/06/17 01:19 97.7 F 93 20 204/106 100 Intake and Output 06/05/17 06/06/17 06/06/17 22:59 06:59 14:59 Intake Total 1.7 Balance 1.7 Intake: Intake, IV Titration 1.7 Amount Nitroglycerin-D5w Pmx 50 1.7 mg In Dextrose/Water 1 250ml.bag @ 20 MCG/MIN 6 mls/hr IV .Q24H ONE Rx#: [id number] Other: Voiding Method Toilet Toilet # Voids 0 0 Weight 90.718 kg 90.718 kg Patient Weight 06/07/17 06:59 Weight 90.718 kg Results - Lab Results Most recent lab results Calcium 8.4 mg/dL (8.4-10.2) 06/06/17 05:22 06/06/17 05:22 06/06/17 05:22 Assessment and Plan Plan: Assessment: #1. End-stage renal disease maintained on hemodialysis on a Sunday schedule via right upper extremity AV fistula. #2. Hypertension with chronic kidney disease. Uncontrolled. Partially volume sensitive. Pain also contribute infector. Better controlled now. #3. Volume overload. #4. Insulin-dependent diabetes mellitus. #5. Chronic kidney disease mineral bone disease. Plan: Hemodialysis today with goal 3-1/2-4 L ultrafiltration. Home antihypertensives have been resumed. Continue with hydralazine as needed for systolic blood pressure greater than 160. Zofran every 4-6 hours as needed for nausea. Check phosphorus level. Thank you for the consultation. I will continue to follow the patient with you during his hospital stay.
[2017-06-06 10:43] LABS: Hemoglobin A1C 11.2 % (4.2-6.1)
[2017-06-06 12:07] LABS: Glucose,Whole Blood 375 mg/dL (75-99)
[2017-06-06] MEDS: HYDROcodone/APAP 5-325MG 1 EACH TAB PO PRN (12:17)
[2017-06-06 16:40] LABS: Glucose,Whole Blood 206 mg/dL (75-99)
[2017-06-06] MEDS ORDERED: SCOPOLAMINE 1.5MG/72HR PATCH TRANSDERM STA (18:17)
--- NOTE | 2017-06-06 19:06 | XR ---
EXAMINATION TYPE: XR chest 2V DATE OF EXAM: 06/06/2017 COMPARISON: Yesterday HISTORY: Pulmonary edema TECHNIQUE: Frontal and lateral views of the chest are obtained. FINDINGS: Heart is enlarged. There is pulmonary interstitial edema with increased density at the ricardo g bases. There is slight blunting of costophrenic angles. There are chest leads. IMPRESSION: There is evidence of congestive heart failure with pleural fluid and pulmonary edema sweta t is the same or worse than yesterday.
--- NOTE | 2017-06-06 19:30 | HP ---
HISTORY AND PHYSICAL DATE OF ADMISSION: 06/06/2017 PRESENTING COMPLAINT: Nausea. HISTORY OF PRESENTING COMPLAINT: This is a 37-year-old patient of Dr. Spence. Does follow with assistant district attorney, Dr. Charles. The patient's chronic stable medical conditions include diabetes, anemia, hyperlipidemia, hypertension, peripheral neuropathy, end-stage kidney disease, and peptic ulcer disease. Patient also has decreased vision in the right eye, hiatal hernia, peripheral artery disease. Patient presented with increasing nausea, some vomiting, not able to keep anything down. Patient missed his hemodialysis due today. Blood pressure is running, high close to 200 systolic. Admitted for the same. The patient will be getting dialyzed today. Denies any abdominal pain. Not much of an appetite. No diarrhea. REVIEW OF SYSTEMS: CONSTITUTIONAL: Weak, tired. HEENT: Decreased vision especially in the right eye. RESPIRATORY: None. CARDIOVASCULAR: None. GASTROINTESTINAL: As above. GENITOURINARY: None. MUSCULOSKELETAL: None. DERMATOLOGIC: None. HEMATOLOGIC: None. LYMPHATICS; None. PSYCHIATRY: Feels a bit low. NEUROLOGICAL: Peripheral neuropathy. PAST MEDICAL HISTORY: Diabetes, anemia, hyperlipidemia, hypertension, peripheral neuropathy, end stage kidney disease, peptic ulcer disease, hiatal hernia, diabetic retinopathy, diabetic bone disease, peripheral arterial disease. PAST SURGICAL HISTORY: Diabetes mellitus, type 1 since age of 21 with an insulin pump since 2009. Hiatal hernia. Right eye retinal detachment with surgery. GI bleed, peptic ulcer disease. Osteomyelitis. Diabetic foot ulcers and amputations, left great toe amputation and 2nd and 5th left foot toes amputated. Right chest MediPort x2. Chronic wound on the right foot. SOCIAL HISTORY: Lives with mother. Does drive. Has a cane. No smoking. Drinks alcohol rarely. FAMILY HISTORY: Father of a stroke at age of 53. HOME MEDICATIONS: 1. Pravachol 40 mg q.h.s. 2. Prilosec 40 mg q.h.s. 3. NovoLog insulin pump. 4. [place] 5, 1 tab q.6h p.r.n. 5. Vitamin D2, 50,000 units on Sunday. 6. Cardizem CD 180 mg q.h.s. 7. Cymbalta 120 mg p.o. q.h.s. 8. Coreg 25 mg b.i.d. 9. Abilify 10 mg p.o. q.h.s. ALLERGIES: LIPITOR, COZAAR, ULTRAM. PHYSICAL EXAMINATION: Vital signs on presentation: Temperature 97.7 pulse 93, respirations 20, blood pressure 204/106, pulse ox 100% on 3L. GENERAL APPEARANCE: Average built, lying in bed, tired appearing. EYES: Pupils equal. Conjunctivae pale. HEENT: Oral cavity normal. NECK: JVD not raised. Mass not palpable. RESPIRATORY: Effort normal. LUNGS: Clear. CARDIOVASCULAR: First and second sounds normal. No edema. ABDOMEN: Soft, nontender. Liver and spleen not palpable. LYMPHATICS; No lymph node palpable in neck or axilla. PSYCHIATRY: Alert and oriented x3. Mood and affect is normal. EXTREMITIES: Right forearm has a fistula and also the feet have amputations as above. INVESTIGATIONS: White count 8.6, hemoglobin 10.3, potassium 4.5, BUN 43, creatinine 7.77. Accu-Cheks 293, 321, 375. was 11.2. EKG normal sinus rhythm. ASSESSMENT: 1. Persistent nausea in a patient, could be from incomplete dialysis and part of uremic symptoms. 2. Malignant hypertension/urgency due to incomplete hemodialysis. 3. Diabetes mellitus type 1 on insulin pump. The patient has now expressed that he does not want to use the pump anymore as his vision is not good and wishes to go on to subcu insulin. 4. Normocytic anemia secondary to chronic kidney disease. 5. Hyperlipidemia. 6. Peripheral neuropathy, diabetic retinopathy from diabetes mellitus. 7. Secondary hyperparathyroidism/end-stage kidney disease related bone disease. 8. Peripheral arterial disease. PLAN: Nephrology was consulted. Patient will have hemodialysis today. We will start the patient on 20 units of Lantus. Patient does not have much of an appetite and is covered with sliding scale for the present time. I will also prescribe a scopolamine patch and possibility of diabetic gastroparesis, hence, we will start the patient on Reglan and see how he does. If things do not improve within 24 hours then may get a nephrology consultation. The patient was seen by diabetic coordinator. MMODL / IJN: [id number] /
[2017-06-06 20:51] LABS: Glucose,Whole Blood 297 mg/dL (75-99)
[2017-06-06] MEDS ORDERED: INSULIN GLARGINE 100 UNIT/ML 10 ML VIAL SQ SCH (21:00)
[2017-06-06] MEDS: DULoxetine HCL 60 MG CAPSULE.DR PO SCH (21:27)
[2017-06-06] MEDS: INSULIN GLARGINE 100 UNIT/ML 10 ML VIAL SQ SCH (21:28)
[2017-06-06] MEDS: DILTIAZEM CD 180 MG CAP.ER.24H PO SCH (21:28)
[2017-06-06] MEDS: ARIPiprazole 10 MG TAB PO SCH (21:28)
[2017-06-06] MEDS: PRAVASTATIN SODIUM 40 MG TAB PO SCH (21:28)
[2017-06-06] MEDS: PANTOPRAZOLE 40 MG TABLET PO SCH (21:28)
[2017-06-07] MEDS: NITROGLYCERIN OINT 1 INCH/GM PACKET TOPICAL SCH ×5 (00:35→23:09)
[2017-06-07] MEDS: hydrALAZINE HCL 20 MG/ML 1 ML VIAL IVP PRN (01:18)
[2017-06-07 06:01] LABS: Glucose,Whole Blood 351 mg/dL (75-99)
[2017-06-07 06:33] LABS: Anion Gap 11 mmol/L; Blood Urea Nitrogen 37 mg/dL (9-20); Calcium 8.7 mg/dL (8.4-10.2); Carbon Dioxide 25 mmol/L (22-30); Chloride 97 mmol/L (98-107); Glucose 400 mg/dL (74-99); Phosphorus 5.5 mg/dL (2.5-4.5); Potassium 5.2 mmol/L (3.5-5.1); Sodium 133 mmol/L (137-145)
[2017-06-07] MEDS: INSULIN LISPRO (humaLOG) 300 UNIT/3 ML VIAL SQ SCH ×4 (06:41→20:50)
[2017-06-07] MEDS: CARVEDILOL 12.5 MG TAB PO SCH ×2 (06:41→18:45)
[2017-06-07 06:46] LABS: Non-African American GFR(MDRD) 9 (>60 ml/min/1.73 sqM)
[2017-06-07 07:02] LABS: Hepatitis B Surface Ag Index 0.04
[2017-06-07] MEDS ORDERED: ENOXAPARIN 30 MG/0.3 ML SYRINGE SQ SCH (09:00)
--- NOTE | 2017-06-07 09:45 | P.PN ---
Subjective Patient is seen in follow-up for end-stage renal disease. He is maintained on hemodialysis on a Sunday schedule via right upper extremity AV fistula. Patient presented with dyspnea and fluid overload. He underwent hemodialysis yesterday with 5 L ultrafiltration. His blood pressures have improved. No vomiting or diarrhea. Patient does admit to drinking more fluid than usual due to the humidity outside. Denies chest pain. Dyspnea has improved but still requiring oxygen. Vital signs are stable. General: The patient appeared well nourished and normally developed. HEENT: Head exam is unremarkable. Neck is without jugular venous distension. LUNGS: Lungs are clear to auscultation and percussion. Breath sounds decreased. HEART: Rate and Rhythm are regular. First and second heart sounds normal. No murmurs, rubs or gallops. ABDOMEN: Abdominal exam reveals normal bowel sounds. Non-tender and non- distended. No evidence of peritonitis. EXTREMITITES: No clubbing, cyanosis, or edema. Objective - Vital Signs Vital signs: Vital Signs Temp 98.9 F 06/07/17 04:00 Pulse 93 06/07/17 04:00 Resp 18 06/07/17 04:00 BP 163/83 06/07/17 04:00 Pulse Ox 94 L 06/07/17 04:00 Intake & Output 06/06/17 06/07/17 06/07/17 18:59 06:59 18:59 Intake Total 120 240 Output Total 50 200 Balance 70 40 Weight 90.718 kg Intake: Oral 120 240 Output: Urine 50 200 Other: Voiding Method Toilet Urinal # Voids 2 1 - Labs CBC & Chem 7: 06/06/17 05:22 06/07/17 05:24 Labs: Abnormal Lab Results - Last 24 Hours (Table) 06/06/17 06/06/17 06/06/17 Range/Units 05:22 11:53 16:38 Sodium (137-145) mmol/L Potassium (3.5-5.1) mmol/L Chloride (98-107) mmol/L BUN (9-20) mg/dL Creatinine (0.66-1.25) mg/dL Glucose (74-99) mg/dL POC Glucose (mg/dL) 375 H 206 H (75-99) mg/dL Hemoglobin A1c 11.2 H (4.2-6.1) % Phosphorus (2.5-4.5) mg/dL 06/06/17 06/07/17 06/07/17 Range/Units 20:49 05:24 05:59 Sodium 133 L (137-145) mmol/L Potassium 5.2 H (3.5-5.1) mmol/L Chloride 97 L (98-107) mmol/L BUN 37 H (9-20) mg/dL Creatinine 6.61 H* (0.66-1.25) mg/dL Glucose 400 H (74-99) mg/dL POC Glucose (mg/dL) 297 H 351 H (75-99) mg/dL Hemoglobin A1c (4.2-6.1) % Phosphorus 5.5 H (2.5-4.5) mg/dL Assessment and Plan Plan: Assessment: #1. End-stage renal disease maintained on hemodialysis on a Sunday schedule via right upper extremity AV fistula. #2. Hypertension with chronic kidney disease. Better since admission but still on the higher side. Partially volume sensitive. #3. Volume overload. #4. Insulin-dependent diabetes mellitus. Uncontrolled. #5. Chronic kidney disease mineral bone disease. #6. Hypervolemic hyponatremia. Hyperglycemia also a contributor factor. Plan: Extra treatment of hemodialysis today with goal 3 L ultrafiltration. Continue with current antihypertensives. Zofran every 4-6 hours as needed for nausea. Add Renvela 800 mg with meals.
[2017-06-07 11:58] LABS: Glucose,Whole Blood 381 mg/dL (75-99)
[2017-06-07] MEDS: SEVELAMER 800 MG TAB PO SCH ×2 (13:20→18:46)
[2017-06-07] MEDS: HYDROcodone/APAP 5-325MG 1 EACH TAB PO PRN ×2 (13:26→22:03)
[2017-06-07 14:13] LABS: Hepatitis B Surface Antibody Reactive (Non-Reactive)
--- NOTE | 2017-06-07 15:52 | P.PN ---
Subjective Patient is seen in follow-up for end-stage renal disease. He is maintained on hemodialysis on a Sunday schedule via right upper extremity AV fistula. Patient presented with dyspnea and fluid overload. Patient will undergo hemodialysis today and tomorrow possibility of discharge tomorrow after hemodialysis. Patient is fairly will be now. Patient shortness of breath resolved, denied any fever, chills, nausea, vomiting , abdominal pain. Objective - Vital Signs Vital signs: Vital Signs Temp 98.3 F 06/07/17 08:00 Pulse 85 06/07/17 08:00 Resp 16 06/07/17 08:00 BP 141/74 06/07/17 08:00 Pulse Ox 94 L 06/07/17 08:00 Intake & Output 06/06/17 06/07/17 06/07/17 18:59 06:59 18:59 Intake Total 120 480 Output Total 50 200 Balance 70 280 Weight 90.718 kg 90.718 kg Intake: Oral 120 480 Output: Urine 50 200 Other: Voiding Method Toilet Urinal Urinal # Voids 2 1 - Exam PHYSICAL EXAMINATION: GENERAL: The patient is alert and oriented x3, not in any acute distress. Well developed, well nourished. HEENT: Pupils are round and equally reacting to light. EOMI. No scleral icterus. No conjunctival pallor. Normocephalic, atraumatic. No pharyngeal erythema. No thyromegaly. CARDIOVASCULAR: S1 and S2 present. No murmurs, rubs, or gallops. PULMONARY: Chest is clear to auscultation, no wheezing or crackles. ABDOMEN: Soft, nontender, nondistended, normoactive bowel sounds. No palpable organomegaly. MUSCULOSKELETAL: No joint swelling or deformity. EXTREMITIES: No cyanosis, clubbing, or pedal edema. NEUROLOGICAL: Gross neurological examination did not reveal any focal deficits. SKIN: No rashes. - Labs CBC & Chem 7: 06/06/17 05:22 06/07/17 05:24 Labs: Abnormal Lab Results - Last 24 Hours (Table) 06/06/17 06/06/17 06/07/17 Range/Units 16:38 20:49 05:24 Sodium (137-145) mmol/L Potassium (3.5-5.1) mmol/L Chloride (98-107) mmol/L BUN (9-20) mg/dL Creatinine (0.66-1.25) mg/dL Glucose (74-99) mg/dL POC Glucose (mg/dL) 206 H 297 H (75-99) mg/dL Phosphorus (2.5-4.5) mg/dL Hep Bs Antibody Reactive H (Non-Reactive) 06/07/17 06/07/17 06/07/17 Range/Units 05:24 05:59 11:50 Sodium 133 L (137-145) mmol/L Potassium 5.2 H (3.5-5.1) mmol/L Chloride 97 L (98-107) mmol/L BUN 37 H (9-20) mg/dL Creatinine 6.61 H* (0.66-1.25) mg/dL Glucose 400 H (74-99) mg/dL POC Glucose (mg/dL) 351 H 381 H (75-99) mg/dL Phosphorus 5.5 H (2.5-4.5) mg/dL Hep Bs Antibody (Non-Reactive) Assessment and Plan Plan: #1 volume overload: Secondary to end-stage renal disease, patient is undergoing hemodialysis. #2 nausea, fatigue or: Secondary to uremia symptoms of which improved at this point of time. #3 insulin-dependent type 2 diabetes mellitus controlled, patient is on insulin pump. #4 hypovolemic hyponatremia improved now with hemodialysis #5 hypertension, uncontrolled blood pressure yesterday improved with hemodialysis #6 hyperlipidemia #7 diabetic peripheral neuropathy
[2017-06-07 16:59] LABS: Glucose,Whole Blood 256 mg/dL (75-99)
[2017-06-07] MEDS ORDERED: GELATIN SPONGE,ABSORB (SMALL) 1 EACH SPONGE ONE (17:35)
[2017-06-07] MEDS: ARIPiprazole 10 MG TAB PO SCH (20:37)
[2017-06-07] MEDS: DULoxetine HCL 60 MG CAPSULE.DR PO SCH (20:38)
[2017-06-07] MEDS: DILTIAZEM CD 180 MG CAP.ER.24H PO SCH (20:38)
[2017-06-07] MEDS: PANTOPRAZOLE 40 MG TABLET PO SCH (20:39)
[2017-06-07] MEDS: PRAVASTATIN SODIUM 40 MG TAB PO SCH (20:39)
[2017-06-07] MEDS: INSULIN GLARGINE 100 UNIT/ML 10 ML VIAL SQ SCH (20:50)
[2017-06-07 20:54] LABS: Glucose,Whole Blood 241 mg/dL (75-99)
[2017-06-08] MEDS: HYDROcodone/APAP 5-325MG 1 EACH TAB PO PRN (04:46)
[2017-06-08 06:08] LABS: Glucose,Whole Blood 167 mg/dL (75-99)
[2017-06-08] MEDS: NITROGLYCERIN OINT 1 INCH/GM PACKET TOPICAL SCH (06:27)
[2017-06-08] MEDS: INSULIN LISPRO (humaLOG) 300 UNIT/3 ML VIAL SQ SCH (06:29)
[2017-06-08] MEDS: SEVELAMER 800 MG TAB PO SCH (07:01)
[2017-06-08 07:02] LABS: Calcium 8.7 mg/dL (8.4-10.2); Potassium 4.3 mmol/L (3.5-5.1)
[2017-06-08 08:32] VITALS: BP 132/79; PULSE 65; RESP 16; TEMP 97.8
--- NOTE | 2017-06-08 09:52 | P.PN ---
Subjective Patient is seen in follow-up for end-stage renal disease. He is maintained on hemodialysis on a Sunday schedule via right upper extremity AV fistula. Patient presented with dyspnea and fluid overload. He underwent hemodialysis last 2 days with near 8 L ultrafiltration. His blood pressures have improved. No vomiting or diarrhea. Patient does admit to drinking more fluid than usual due to the humidity outside. Denies chest pain. Dyspnea has improved. No active complaints at this time. Vital signs are stable. General: The patient appeared well nourished and normally developed. HEENT: Head exam is unremarkable. Neck is without jugular venous distension. LUNGS: Lungs are clear to auscultation and percussion. Breath sounds decreased. HEART: Rate and Rhythm are regular. First and second heart sounds normal. No murmurs, rubs or gallops. ABDOMEN: Abdominal exam reveals normal bowel sounds. Non-tender and non- distended. No evidence of peritonitis. EXTREMITITES: No clubbing, cyanosis, or edema. Objective - Vital Signs Vital signs: Vital Signs Temp 97.8 F 06/08/17 08:00 Pulse 65 06/08/17 08:00 Resp 16 06/08/17 08:00 BP 132/79 06/08/17 08:00 Pulse Ox 96 06/08/17 08:00 Intake & Output 06/07/17 06/08/17 06/08/17 18:59 06:59 18:59 Intake Total 740 200 240 Output Total 200 Balance 540 200 240 Weight 90.718 kg 91.4 kg Intake: Oral 740 200 240 Output: Urine 200 Other: Voiding Method Urinal Urinal # Voids 1 - Labs CBC & Chem 7: 06/06/17 05:22 06/08/17 05:37 Labs: Abnormal Lab Results - Last 24 Hours (Table) 06/07/17 06/07/17 06/07/17 Range/Units 05:24 11:50 16:46 Sodium (137-145) mmol/L BUN (9-20) mg/dL Creatinine (0.66-1.25) mg/dL Glucose (74-99) mg/dL POC Glucose (mg/dL) 381 H 256 H (75-99) mg/dL Hep Bs Antibody Reactive H (Non-Reactive) 09/28/17 09/29/17 09/29/17 Range/Units 20:42 05:37 06:06 Sodium 135 L (137-145) mmol/L BUN 32 H (9-20) mg/dL Creatinine 6.09 H* (0.66-1.25) mg/dL Glucose 179 H (74-99) mg/dL POC Glucose (mg/dL) 241 H 167 H (75-99) mg/dL Hep Bs Antibody (Non-Reactive) Assessment and Plan Plan: Assessment: #1. End-stage renal disease maintained on hemodialysis on a Sunday schedule via right upper extremity AV fistula. #2. Hypertension with chronic kidney disease. Better controlled. Partially volume sensitive. #3. Volume overload. Improved. #4. Insulin-dependent diabetes mellitus. Uncontrolled. #5. Chronic kidney disease mineral bone disease. #6. Hypervolemic hyponatremia. Hyperglycemia also a contributor factor. Improved. Plan: Hemodialysis today with goal 3 L ultrafiltration. Continue with current antihypertensives. Zofran every 4-6 hours as needed for nausea. Maintain Renvela 800 mg with meals. Advised to follow a 50-60 oz fluid restricted diet. Potential discharge after dialysis today.
[2017-06-08 11:59] LABS: Glucose,Whole Blood 163 mg/dL (75-99)
--- NOTE | 2017-06-08 14:53 | P.DS ---
Providers Date of admission: 06/06/17 01:53 Attending physician: Kristopher Stone Consults: 06/06/17 01:53 Consult Physician Urgent Consulting Provider: Jojo Charles Consult Reason/Comments: Chronic renal failure Do you want consulting provider notified?: Yes Primary care physician: [facility] Course: Patient with end-stage renal disease on hemodialysis is admitted for fluid overload. Patient underwent hematemesis yesterday and today, euvolemic respiratory status improved is being discharged today He is maintained on hemodialysis on a Sunday schedule via right upper extremity AV fistula. PHYSICAL EXAMINATION: GENERAL: The patient is alert and oriented x3, not in any acute distress. Well developed, well nourished. HEENT: Pupils are round and equally reacting to light. EOMI. No scleral icterus. No conjunctival pallor. Normocephalic, atraumatic. No pharyngeal erythema. No thyromegaly. CARDIOVASCULAR: S1 and S2 present. No murmurs, rubs, or gallops. PULMONARY: Chest is clear to auscultation, no wheezing or crackles. ABDOMEN: Soft, nontender, nondistended, normoactive bowel sounds. No palpable organomegaly. MUSCULOSKELETAL: No joint swelling or deformity. EXTREMITIES: No cyanosis, clubbing, or pedal edema. NEUROLOGICAL: Gross neurological examination did not reveal any focal deficits. SKIN: No rashes. #1 volume overload: Secondary to end-stage renal disease, patient is undergoing hemodialysis. Discharge after hemodialysis today #2 nausea, fatigue or: Secondary to uremia symptoms of which improved at this point of time. #3 insulin-dependent type 2 diabetes mellitus controlled, patient is on insulin pump. #4 hypovolemic hyponatremia improved now with hemodialysis #5 hypertension, uncontrolled blood pressure yesterday improved with hemodialysis #6 hyperlipidemia #7 diabetic peripheral neuropathy Plan - Discharge Summary New Discharge Prescriptions: New Sevelamer [Renvela] 800 mg PO TID-W/MEALS #90 tab Continue DULoxetine HCL [Cymbalta] 120 mg PO HS Pravastatin Sodium [Pravachol] 40 mg PO HS Hydrocodone/Acetaminophen [[place] 5-325] 1 tab PO Q6HR PRN PRN Reason: Pain Carvedilol [Coreg] 25 mg PO BID #60 tablet Diltiazem Cd [Cardizem CD] 180 mg PO HS Omeprazole [PriLOSEC] 40 mg PO HS ARIPiprazole [Abilify] 10 mg PO HS Insulin Aspart (For Pump) [NovoLOG (For Pump)] 1.4 - 1.6 units SQ DIRECTED Ergocalciferol [Vitamin D2 (DRISDOL)] 50,000 unit PO BROWN Discharge Medication List DULoxetine HCL [Cymbalta] 120 mg PO HS 05/22/15 [History] Hydrocodone/Acetaminophen [[place] 5-325] 1 tab PO Q6HR PRN 12/26/15 [History] Pravastatin Sodium [Pravachol] 40 mg PO HS 12/26/15 [History] Carvedilol [Coreg] 25 mg PO BID #60 tablet 12/29/15 [Rx] ARIPiprazole [Abilify] 10 mg PO HS 09/07/16 [History] Diltiazem Cd [Cardizem CD] 180 mg PO HS 09/07/16 [History] Omeprazole [PriLOSEC] 40 mg PO HS 09/07/16 [History] Insulin Aspart (For Pump) [NovoLOG (For Pump)] 1.4 - 1.6 units SQ DIRECTED [History] Ergocalciferol [Vitamin D2 (DRISDOL)] 50,000 unit PO BROWN 10/18/16 [History] Sevelamer [Renvela] 800 mg PO TID-W/MEALS #90 tab 06/08/17 [Rx] Follow up Appointment(s)/Referral(s): Chad Trevino MD [Primary Care Provider] - 3 Days Discharge Disposition: HOME SELF-CARE
[2017-06-10] MEDS ORDERED: ERGOCALCIFEROL 50,000 UNIT CAP PO SCH (09:00)
== END 2017-06-08 16:30 | disposition home or self-care (01) | DRG 640 ==
LOC: EC 01:18 → 6SEL 01:53
PROVIDERS: ADMIT Hospitalist; ATTEND Hospitalist
PROC: 5A1D00Z (ICD-10-PCS; principal; 2017-06-07)
DX: E87.70 Fluid overload, unspecified (principal); N18.6 End stage renal disease; J81.1 Chronic pulmonary edema; N25.81 Secondary hyperparathyroidism of renal origin; I12.0 Hypertensive chronic kidney disease with stage 5 chronic kidney disease or end stage renal disease; E10.22 Type 1 diabetes mellitus with diabetic chronic kidney disease; Z96.41 Presence of insulin pump (external) (internal); E87.1 Hypo-osmolality and hyponatremia; E78.5 Hyperlipidemia, unspecified; E10.42 Type 1 diabetes mellitus with diabetic polyneuropathy; I16.0 Hypertensive urgency; D63.1 Anemia in chronic kidney disease; E10.65 Type 1 diabetes mellitus with hyperglycemia; E10.319 Type 1 diabetes mellitus with unspecified diabetic retinopathy without macular edema; H54.51 Low vision, right eye, normal vision left eye; F32.9 Major depressive disorder, single episode, unspecified; I73.9 Peripheral vascular disease, unspecified; Z79.4 Long term (current) use of insulin; Z79.899 Other long term (current) drug therapy; Z82.49 Family history of ischemic heart disease and other diseases of the circulatory system; Z83.3 Family history of diabetes mellitus; Z99.2 Dependence on renal dialysis; Z82.3 Family history of stroke; Z89.412 Acquired absence of left great toe; Z89.422 Acquired absence of other left toe(s); Z87.19 Personal history of other diseases of the digestive system; Z86.69 Personal history of other diseases of the nervous system and sense organs; Z87.11 Personal history of peptic ulcer disease; Z86.14 Personal history of Methicillin resistant Staphylococcus aureus infection; Z79.891 Long term (current) use of opiate analgesic; Z88.8 Allergy status to other drugs, medicaments and biological substances
CPT/HCPCS: 36415; 71020; 80048; 83036; 84100; 85027; 86704; 86706; 87340; 90935; 93005; 96365; 96375; 99285

== ENCOUNTER 2018-05-07 22:54 | Inpatient (IN) | payer MEDICARE, OTHER ==
[2018-05-07] MEDS ORDERED: INSULIN REGULAR 100 UNIT in SODIUM CHLORIDE 0.9% 100 ML IV SCH (23:30)
[2018-05-07] MEDS ORDERED: SODIUM CHLORIDE 0.9% 1,000 ML IV STA (23:36)
[2018-05-07] MEDS ORDERED: LABETALOL 5 MG/ML VIAL MDV IVP STA (23:36)
--- NOTE | 2018-05-07 23:40 | ED ---
General Adult HPI - General Chief complaint: Recheck/Abnormal Lab/Rx Stated complaint: Abnormal labs Time Seen by Provider: 05/07/18 23:20 Source: patient, RN notes reviewed, old records reviewed Mode of arrival: ambulatory Limitations: no limitations - History of Present Illness Initial comments: Patient is a pleasant 2-year-old male presenting to the emergency Department as a transfer from [facility]. Patient was sent for hyperglycemia. Patient states he had partial dialysis today secondary to weight gain. Patient states his blood sugar is 125 this morning. Following lunch the patient had a burger and fries at [employer], patient started to feel weak. Patient went to the hospital and was found to have hyperglycemia as well as other lab abnormalities. Patient was transferred for about care and nephrology consultation. Patient states he is certain he feels better at this time. - Related Data Home Medications Medication Instructions Recorded Confirmed DULoxetine HCL [Cymbalta] 120 mg PO HS 05/22/15 05/07/18 Hydrocodone/Acetaminophen [[place] 1 tab PO Q6HR PRN 12/26/15 05/07/18 5-325] Pravastatin Sodium [Pravachol] 40 mg PO HS 12/26/15 05/07/18 ARIPiprazole [Abilify] 10 mg PO HS 09/07/16 05/07/18 Omeprazole [PriLOSEC] 40 mg PO HS 09/07/16 05/07/18 Ergocalciferol [Vitamin D2 50,000 unit PO BROWN 10/18/16 05/07/18 (DRISDOL)] Calcium Acetate [PhosLo] 667 mg PO TID 07/01/17 05/07/18 Diltiazem HCl [Diltiazem ER] 360 mg PO HS 05/07/18 05/07/18 Insulin Aspart [NovoLOG See Protocol SQ ACHS 05/07/18 05/07/18 (formulary)] Insulin Detemir [Levemir] 20 unit SQ BID 05/07/18 05/07/18 Previous Rx's Medication Instructions Recorded Carvedilol [Coreg] 25 mg PO BID #60 tablet 12/29/15 hydrALAZINE HCL [Apresoline] 100 mg PO TID #90 tab 07/04/17 Allergies Allergy/AdvReac Type Severity Reaction Status Date / Time lisinopril Allergy Unknown Verified 05/07/18 23:35 atorvastatin calcium AdvReac Nausea & Verified 05/07/18 23:35 [From Lipitor] Vomiting losartan potassium AdvReac Nausea & Verified 05/07/18 23:35 [From Cozaar] Vomiting tramadol AdvReac drowsiness Verified 05/07/18 23:35 Review of Systems ROS Statement: Those systems with pertinent positive or pertinent negative responses have been documented in the HPI. ROS Other: All systems not noted in ROS Statement are negative. Constitutional: Denies: fever Eyes: Denies: eye pain ENT: Denies: ear pain Respiratory: Denies: cough Cardiovascular: Denies: chest pain Endocrine: Denies: fatigue Gastrointestinal: Denies: abdominal pain, vomiting Genitourinary: Reports: other (Patient makes almost no urine) Musculoskeletal: Denies: back pain Skin: Denies: rash Neurological: Reports: weakness (Patient had generalized weakness that is resolved) Past Medical History Past Medical History: Asthma, Diabetes Mellitus, Dialysis, Eye Disorder, GERD/ Reflux, GI Bleed, Hyperlipidemia, Hypertension, Pneumonia, Renal Disease Additional Past Medical History / Comment(s): IDDM type I, diabetic since he was age 21, insulin pump since 2009, DKA, hiatal hernia, R eye retinal detachment with surgery-vision decreased, hemodialysis. The patient is seeing hemodialysis 3 times a week on Sunday, Sunday and Sunday and he has an AV fistula in his lower right arm. Other medical problems are chronic anemia, previous history of GI bleed secondary to peptic ulcer disease, volume overload , chronic kidney disease bone marrow disorder, peripheral vascular disease, osteomyelitis, diabetic foot ulcers and amputations History of Any Multi-Drug Resistant Organisms: MRSA Date of last positivie culture/infection: 12/20/11 MDRO Source:: Left Foot Additional Past Surgical History / Comment(s): renal needle bx, 2008 left great toe amp and 2013 2nd to 5th left foot toes amputated. right chest mediport x2 with removal in 2010 and 2012. right eye retina reattachment sx 03/2015. EGD/ colonoscopy. chronic wound right foot ( tested for MRSA and was Neg) Past Anesthesia/Blood Transfusion Reactions: No Reported Reaction Past Psychological History: Depression Smoking Status: Never smoker Past Alcohol Use History: None Reported Past Drug Use History: None Reported - Past Family History Mother Family Medical History: Hypertension Father Family Medical History: CVA/TIA, Diabetes Mellitus, Hypertension Additional Family Medical History / Comment(s): Father is at the age of 53yrs from a CVA. General Exam Limitations: no limitations General appearance: alert, in no apparent distress Head exam: Present: atraumatic Eye exam: Present: normal appearance ENT exam: Present: normal oropharynx Neck exam: Present: normal inspection Respiratory exam: Present: normal lung sounds bilaterally Cardiovascular Exam: Present: regular rate, normal rhythm GI/Abdominal exam: Present: soft. Absent: tenderness Extremities exam: Present: other (Amputations of left toes) Neurological exam: Present: alert Psychiatric exam: Present: normal affect, normal mood Skin exam: Present: normal color Course Vital Signs 05/07/18 23:09 Temperature 97.1 F L Pulse Rate 85 Respiratory 18 Rate Blood Pressure 221/107 O2 Sat by Pulse 91 L Oximetry - Reevaluation(s) Reevaluation #1: 05/08/18 00:51 Case was discussed with Dr. moran, who will admit. Patient was updated on plan. Dr. Charles has been paged. 05/08/18 01:26 Dr. Charles has been paged again. Call was also placed a cell phone and message left. Patient provided medication for hypertension. 05/08/18 01:28 Patient was started on insulin drip. Patient was earlier resistant to IV fluids however is agreeable to 100 mL per hour at this time, pending Dr. Charles' s recommendations. 05/08/18 01:28 Report was earlier reviewed from [facility]. Patient is acetone negative. EKG Findings - EKG Comments: EKG Findings:: Normal sinus rhythm 87. MI 196. QRS 92. QT 380. QTC 457. Right axis. Poor R-wave progression. No acute ST change. Medical Decision Making - Lab Data Result diagrams: 05/07/18 23:56 05/07/18 23:56 Lab Results 05/07/18 05/07/18 05/07/18 Range/Units 23:28 23:56 23:56 WBC 8.1 (3.8-10.6) k/uL RBC 3.65 L (4.30-5.90) m/uL Hgb 11.2 L (13.0-17.5) gm/dL Hct 35.4 L (39.0-53.0) % MCV 96.9 (80.0-100.0) fL MCH 30.7 (25.0-35.0) pg MCHC 31.7 (31.0-37.0) g/dL RDW 14.9 (11.5-15.5) % Plt Count 174 (150-450) k/uL Neutrophils % 74 % Lymphocytes % 13 % Monocytes % 9 % Eosinophils % 3 % Basophils % 1 % Neutrophils # 6.0 (1.3-7.7) k/uL Lymphocytes # 1.0 (1.0-4.8) k/uL Monocytes # 0.7 (0-1.0) k/uL Eosinophils # 0.2 (0-0.7) k/uL Basophils # 0.1 (0-0.2) k/uL Hypochromasia Moderate Sodium 121 L (137-145) mmol/L Potassium 5.9 H (3.5-5.1) mmol/L Chloride 80 L* (98-107) mmol/L Carbon Dioxide 22 (22-30) mmol/L Anion Gap 19 mmol/L BUN 49 H (9-20) mg/dL Creatinine 5.90 H* (0.66-1.25) mg/dL Est GFR (CKD-EPI)AfAm 13 (>60 ml/min/1.73 sqM) Est GFR (CKD-EPI)NonAf 11 (>60 ml/min/1.73 sqM) Glucose 895 H* (74-99) mg/dL POC Glucose (mg/dL) >600 H (75-99) mg/dL POC Glu Horse Rancher ID Carlos Frankel Osmolality 308 H (280-301) mosm/kg Calcium 8.7 (8.4-10.2) mg/dL Magnesium 2.6 H (1.6-2.3) mg/dL Total Bilirubin 0.7 (0.2-1.3) mg/dL AST 23 (17-59) U/L ALT 44 (21-72) U/L Alkaline Phosphatase 186 H (38-126) U/L Total Protein 6.5 (6.3-8.2) g/dL Albumin 4.1 (3.5-5.0) g/dL 05/08/18 Range/Units 00:40 WBC (3.8-10.6) k/uL RBC (4.30-5.90) m/uL Hgb (13.0-17.5) gm/dL Hct (39.0-53.0) % MCV (80.0-100.0) fL MCH (25.0-35.0) pg MCHC (31.0-37.0) g/dL RDW (11.5-15.5) % Plt Count (150-450) k/uL Neutrophils % % Lymphocytes % % Monocytes % % Eosinophils % % Basophils % % Neutrophils # (1.3-7.7) k/uL Lymphocytes # (1.0-4.8) k/uL Monocytes # (0-1.0) k/uL Eosinophils # (0-0.7) k/uL Basophils # (0-0.2) k/uL Hypochromasia Sodium (137-145) mmol/L Potassium (3.5-5.1) mmol/L Chloride (98-107) mmol/L Carbon Dioxide (22-30) mmol/L Anion Gap mmol/L BUN (9-20) mg/dL Creatinine (0.66-1.25) mg/dL Est GFR (CKD-EPI)AfAm (>60 ml/min/1.73 sqM) Est GFR (CKD-EPI)NonAf (>60 ml/min/1.73 sqM) Glucose (74-99) mg/dL POC Glucose (mg/dL) >600 H (75-99) mg/dL POC Glu Horse Rancher ID Milli Stephens Osmolality (280-301) mosm/kg Calcium (8.4-10.2) mg/dL Magnesium (1.6-2.3) mg/dL Total Bilirubin (0.2-1.3) mg/dL AST (17-59) U/L ALT (21-72) U/L Alkaline Phosphatase (38-126) U/L Total Protein (6.3-8.2) g/dL Albumin (3.5-5.0) g/dL Critical Care Time Critical Care Time: Yes Total Critical Care Time: 32 Disposition Clinical Impression: Diabetic hyperosmolar non-ketotic state, Hypertension Disposition: ADMITTED IP TO THIS HOSP Condition: Serious Is patient prescribed a controlled substance at d/c from ED?: No Referrals: Chad Trevino MD [Primary Care Provider] - 1-2 days
[2018-05-07 23:45] LABS: Glucose,Whole Blood >600 mg/dL (75-99)
[2018-05-08 00:32] LABS: Basophils # (A) 0.1 k/uL (0-0.2); Basophils % (A) 1 %; Eosinophils # (A) 0.2 k/uL (0-0.7); Eosinophils % (A) 3 %; HCT 35.4 % (39.0-53.0); HGB 11.2 gm/dL (13.0-17.5); Hypochromasia Moderate; Lymphocytes % (A) 13 %; MCH 30.7 pg (25.0-35.0); MCHC 31.7 g/dL (31.0-37.0); MCV 96.9 fL (80.0-100.0); Monocytes # (A) 0.7 k/uL (0-1.0); Monocytes % (A) 9 %; Neutrophils % (A) 74 %; Platelet Count 174 k/uL (150-450); RBC 3.65 m/uL (4.30-5.90); RDW 14.9 % (11.5-15.5); WBC 8.1 k/uL (3.8-10.6)
[2018-05-08 00:38] LABS: Albumin 4.1 g/dL (3.5-5.0); Calcium 8.7 mg/dL (8.4-10.2); Magnesium 2.6 mg/dL (1.6-2.3); Potassium 5.9 mmol/L (3.5-5.1); Total Bilirubin 0.7 mg/dL (0.2-1.3); Total Protein 6.5 g/dL (6.3-8.2)
[2018-05-08 00:56] LABS: Glucose,Whole Blood >600 mg/dL (75-99)
[2018-05-08] MEDS ORDERED: hydrALAZINE HCL 20 MG/ML 1 ML VIAL IVP STA (00:56)
[2018-05-08] MEDS ORDERED: NALOXONE 0.4 MG/ML 1 ML VIAL IV PRN (01:29)
[2018-05-08] MEDS ORDERED: SODIUM CHLORIDE 0.9% 1,000 ML IV SCH (01:30)
[2018-05-08] MEDS ORDERED: SODIUM CHLORIDE 0.9% 500 ML IV STA ×2 (01:40)
[2018-05-08] MEDS ORDERED: LABETALOL 5 MG/ML VIAL MDV IVP STA ×2 (02:01→02:28)
[2018-05-08 02:09] LABS: Glucose,Whole Blood >600 mg/dL (75-99)
[2018-05-08] MEDS: SODIUM CHLORIDE 0.9% 1,000 ML IV SCH ×3 (02:13→21:25)
[2018-05-08 03:22] LABS: Glucose,Whole Blood 551 mg/dL (75-99)
[2018-05-08] MEDS: hydrALAZINE HCL 20 MG/ML 1 ML VIAL IVP PRN ×2 (03:56→13:52)
[2018-05-08 04:23] LABS: Glucose,Whole Blood 466 mg/dL (75-99)
[2018-05-08 04:38] LABS: Basophils % (A) 1 %; Eosinophils # (A) 0.3 k/uL (0-0.7); Eosinophils % (A) 4 %; HCT 33.9 % (39.0-53.0); HGB 10.8 gm/dL (13.0-17.5); Lymphocytes # (A) 1.1 k/uL (1.0-4.8); Lymphocytes % (A) 15 %; MCH 30.3 pg (25.0-35.0); MCHC 31.9 g/dL (31.0-37.0); Mean Platelet Volume 8.3; Monocytes # (A) 0.6 k/uL (0-1.0); Monocytes % (A) 8 %; Neutrophils # (A) 5.3 k/uL (1.3-7.7); Neutrophils % (A) 72 %; Platelet Count 157 k/uL (150-450); RBC 3.57 m/uL (4.30-5.90); RDW 15.1 % (11.5-15.5); WBC 7.4 k/uL (3.8-10.6)
[2018-05-08] MEDS ORDERED: MORPHINE SULFATE 4 MG/ML SYRINGE IVP STA (04:40)
[2018-05-08 04:42] LABS: Phosphorus 4.3 mg/dL (2.5-4.5)
[2018-05-08] MEDS: CLEVIDIPINE BUTYRATE 25 MG in EMPTY BAG 1 BAG IV SCH ×6 (04:53→22:05)
[2018-05-08 05:06] LABS: Glucose,Whole Blood 469 mg/dL (75-99)
[2018-05-08] MEDS ORDERED: INSULIN REGULAR BOLUS (FROM DRIP BAG) IV ONE (05:30)
[2018-05-08] MEDS: INSULIN REGULAR 100 UNIT in SODIUM CHLORIDE 0.9% 100 ML IV SCH ×3 (05:38→17:40)
[2018-05-08 06:08] LABS: Glucose,Whole Blood 389 mg/dL (75-99)
[2018-05-08 07:07] LABS: Glucose,Whole Blood 287 mg/dL (75-99)
[2018-05-08 07:14] LABS: Magnesium 2.5 mg/dL (1.6-2.3)
[2018-05-08] MEDS: D5-0.45% NACL WITH KCL 20MEQ/L 1,000 ML IV SCH ×2 (07:39→15:26)
[2018-05-08 08:07] LABS: Glucose,Whole Blood 240 mg/dL (75-99)
[2018-05-08 09:38] LABS: Glucose,Whole Blood 192 mg/dL (75-99)
--- NOTE | 2018-05-08 09:51 | XR ---
EXAMINATION TYPE: XR chest 1V portable DATE OF EXAM: 05/08/2018 COMPARISON: 07/02/2017 HISTORY: Congestive heart failure TECHNIQUE: Single frontal view of the chest is obtained. FINDINGS: Pleural parenchymal changes are similar to prior, heart is enlarged. No evident pneumothor ax. Pulmonary vascularity and rajendra appears somewhat prominently. Interstitium appears somewhat increa sed. Hemidiaphragms are obscured. IMPRESSION: Cardiomegaly, basilar effusions and associated atelectasis. Correlate for congestive hea rt failure.
[2018-05-08 10:01] LABS: Magnesium 2.4 mg/dL (1.6-2.3); Phosphorus 3.9 mg/dL (2.5-4.5); Potassium 4.7 mmol/L (3.5-5.1)
[2018-05-08 10:36] LABS: Glucose,Whole Blood 163 mg/dL (75-99)
--- NOTE | 2018-05-08 11:14 | P.CNPUL ---
History of Present Illness Consult date: 05/08/18 Requesting physician: Kristopher Stone Reason for consult: other (Hyperosmola hyperglycemia. ) Chief complaint: Weakness History of present illness: This is a 38-year-old male with history of multiple medical problems including chronic kidney disease, patient is on hemodialysis for the last 2 years. Type 1 diabetes since he was 21 years old. 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 Patient presented to [facility] yesterday with complaints of 1 day history of weakness. Apparently had a partial dialysis that day, but upon evaluation in the ER, his sugars were noted to be extremely elevated. Patient was also noted to have pseudohyponatremia. Arrangements were made for the patient to be transferred to [facility], and he presented to the ER last night. Blood sugar was close to 900. He was also noted to have an anion gap metabolic acidosis. Low sodium of 121, but this is felt to be pseudohyponatremia rather than true hyponatremia. Patient was given fluids, placed on insulin drip, admitted to the ICU, and I was asked to see him on consultation. Patient is feeling better, his sugar this morning is 190. His anion gap is down from 19- 15. Renal functioning is basically about the same, and his sodium now is 127. CBC was relatively normal except for hemoglobin of 10.8. Patient denies any specific pain, he feels generally weak, denies any headache, no blurred vision, no dizziness. Some shortness of breath, but no cough no wheezing no chest pain no nausea no vomiting and no abdominal pain. Upon arrival to the ICU early this morning, patient was noted to have significantly elevated blood pressure, was not responding to hydralazine and labetalol, hence I recommended clevidipine. Patient was placed on a drip, and his blood pressure now seems to be much better controled Review of Systems 14 point review of systems were obtained, please refer to pertinent positives in HPI otherwise remaining systems are negative. Past Medical History Past Medical History: Asthma, Diabetes Mellitus, Dialysis, Eye Disorder, GERD/ Reflux, GI Bleed, Hyperlipidemia, Hypertension, Pneumonia, Renal Disease Additional Past Medical History / Comment(s): IDDM type I, diabetic since he was age 21, DKA, hiatal hernia, R eye retinal detachment with surgery-vision decreased, hemodialysis.The patient is seeing hemodialysis 3 times a week on Sunday, Sunday and Sunday since Oct 2014, and he has an AV fistula in his lower right arm. Other medical problems are chronic anemia, previous history of GI bleed secondary to peptic ulcer disease, volume overload, chronic kidney disease, peripheral vascular disease, osteomyelitis, diabetic foot ulcers and amputations History of Any Multi-Drug Resistant Organisms: MRSA Date of last positivie culture/infection: 12/20/11 MDRO Source:: Left Foot Past Surgical History: Ventriculoperitoneal Shunt Additional Past Surgical History / Comment(s): renal needle bx, 2008 left great toe amp and 2013 2nd to 5th left foot toes amputated. right chest mediport x2 with removal in 2010 and 2012. right eye retina reattachment sx 03/2015. EGD/ colonoscopy. Past Anesthesia/Blood Transfusion Reactions: No Reported Reaction Past Psychological History: Depression Additional Psychological History / Comment(s): Pt resides with his mother. He uses a cane at times. He drives. Smoking Status: Never smoker Past Alcohol Use History: None Reported Additional Past Alcohol Use History / Comment(s): Patient states he is a lifelong nonsmoker. He denies any medical marijuana, marijuana, street drug use. He states he drinks alcohol on a rare basis. He also sates he chews tobacco either daily or every other day Past Drug Use History: None Reported - Past Family History Mother Family Medical History: Hypertension Father Family Medical History: CVA/TIA, Diabetes Mellitus, Hypertension Additional Family Medical History / Comment(s): Father is at the age of 53yrs from a CVA. Medications and Allergies Home Medications Medication Instructions Recorded Confirmed Type DULoxetine HCL [Cymbalta] 120 mg PO HS 05/22/15 05/07/18 History Hydrocodone/Acetaminophen [[place] 1 tab PO Q6HR PRN 12/26/15 05/07/18 History 5-325] Pravastatin Sodium [Pravachol] 40 mg PO HS 12/26/15 05/07/18 History Carvedilol [Coreg] 25 mg PO BID #60 tablet 12/29/15 05/07/18 Rx ARIPiprazole [Abilify] 10 mg PO HS 09/07/16 05/07/18 History Omeprazole [PriLOSEC] 40 mg PO HS 09/07/16 05/07/18 History Ergocalciferol [Vitamin D2 50,000 unit PO BROWN 10/18/16 05/07/18 History (DRISDOL)] Calcium Acetate [PhosLo] 667 mg PO TID 07/01/17 05/07/18 History hydrALAZINE HCL [Apresoline] 100 mg PO TID #90 tab 07/04/17 05/07/18 Rx Diltiazem HCl [Diltiazem ER] 360 mg PO HS 05/07/18 05/07/18 History Insulin Aspart [NovoLOG See Protocol SQ ACHS 05/07/18 05/07/18 History (formulary)] Insulin Detemir [Levemir] 20 unit SQ BID 05/07/18 05/07/18 History Allergies Allergy/AdvReac Type Severity Reaction Status Date / Time lisinopril Allergy Unknown Verified 05/07/18 23:35 atorvastatin calcium AdvReac Nausea & Verified 05/07/18 23:35 [From Lipitor] Vomiting losartan potassium AdvReac Nausea & Verified 05/07/18 23:35 [From Cozaar] Vomiting tramadol AdvReac drowsiness Verified 05/07/18 23:35 Physical Exam Vitals: Vital Signs Temp Pulse Resp BP Pulse Ox 05/08/18 10:00 79 10 L 133/68 93 L 05/08/18 09:30 78 9 L 137/68 93 L 05/08/18 09:15 78 14 132/68 90 L 05/08/18 09:00 79 11 L 137/67 92 L 05/08/18 08:45 79 11 L 160/77 93 L 05/08/18 08:30 79 11 L 147/69 92 L 05/08/18 08:15 79 11 L 141/68 92 L 05/08/18 08:00 98.1 F 79 10 L 147/70 92 L 05/08/18 07:45 78 11 L 143/67 93 L 05/08/18 07:30 80 12 158/75 94 L 05/08/18 07:15 79 11 L 143/69 94 L 05/08/18 07:00 79 11 L 145/68 94 L 05/08/18 06:45 80 13 153/73 94 L 05/08/18 06:30 81 11 L 151/72 92 L 05/08/18 06:15 81 12 179/84 94 L 05/08/18 06:00 82 12 150/74 93 L 05/08/18 05:45 83 12 191/88 94 L 05/08/18 05:30 84 25 H 189/86 94 L 05/08/18 05:15 84 15 195/90 95 05/08/18 05:00 84 19 212/102 95 05/08/18 04:45 84 20 203/102 95 05/08/18 04:30 84 16 207/103 95 05/08/18 04:15 82 18 202/104 95 05/08/18 04:00 98.4 F 82 19 205/102 96 05/08/18 03:50 81 20 196/101 96 05/08/18 03:40 81 20 196/101 96 05/08/18 03:30 83 16 209/101 95 05/08/18 03:20 98.7 F 80 17 232/119 97 05/08/18 01:33 81 18 237/114 96 05/08/18 01:02 82 17 241/125 96 05/07/18 23:09 97.1 F L 85 18 221/107 91 L Intake and Output 05/07/18 05/08/18 05/08/18 22:59 06:59 14:59 Intake Total 1002.967 656.094 Output Total 0 0 Balance 1002.967 656.094 Intake: IV 900 425 D5-0.45% NaCl with KCl 225 20Meq/l 1,000 ml @ 75 mls /hr IV .[id number] [facility] Rx#: [id number] Sodium Chloride 0.9% 1, 400 200 000 ml @ 200 mls/hr IV . Q5H [facility] Rx#:[id number] Sodium Chloride 0.9% 500 500 ml @ 999 mls/hr IV .Q31M [facility] Rx#:[id number] Intake, IV Titration 102.967 231.094 Amount Clevidipine Butyrate 25 1.967 34.6 mg In Empty Bag 1 bag @ 1 MG/HR 2 mls/hr IV .Q24H [facility] Rx#:[id number] D5-0.45% NaCl with KCl 150 20Meq/l 1,000 ml @ 75 mls /hr IV .[id number] [facility] Rx#: [id number] Insulin Regular 100 unit 46.494 In Sodium Chloride 0.9% 100 ml @ 0.1 UNITS/KG/HR 10.41 mls/hr IV .Q9H43M [facility] Rx#:[id number] Insulin Regular 100 unit 101.000 In Sodium Chloride 0.9% 100 ml @ 0.1 UNITS/KG/HR 9.16 mls/hr IV .Q11H2M [facility] Rx#:[id number] Output: Urine 0 0 Other: Voiding Method Urinal Urinal Weight 103.1 kg Physical Exam: Revealed a 38-year-old male in no distress. Head: Atraumatic, normocephalic. HEENT:[Neck is supple.] [No neck masses.] [No thyromegaly.] [No JVD.] Chest: [Diminished breath sounds and dullness at the bases especially at the right base, no crackles or rhonchi or wheezes.] Cardiac Exam: [Distant S1 and S2, no S3 gallop, no murmur.] Abdomen: [Soft, nontender, no megaly, no rebound, no guarding, normal bowel sounds.] Extremities: [No clubbing, no edema, no cyanosis.] AV fistula noted in the left forearm, evidence of transmetatarsal amputation of the left foot secondary to previous episode of osteomyelitis and MRSA infection. Neurological Exam: Sleepy, but arousable, and no gross focal neurologic deficit. Psychiatric: Normal mood affect and mental status examination. Lymphatics: No lymphadenopathy. Results - Laboratory Findings CBC and BMP: 05/08/18 04:23 05/08/18 08:35 Abnormal lab findings: Abnormal Labs 05/07/18 05/07/18 05/07/18 23:28 23:56 23:56 RBC 3.65 L Hgb 11.2 L Hct 35.4 L Sodium 121 L Potassium 5.9 H Chloride 80 L* BUN 49 H Creatinine 5.90 H* Glucose 895 H* POC Glucose (mg/dL) >600 H Osmolality 308 H Magnesium 2.6 H Alkaline Phosphatase 186 H 05/08/18 05/08/18 05/08/18 00:40 02:06 02:56 RBC Hgb Hct Sodium Potassium Chloride BUN Creatinine Glucose 611 H* POC Glucose (mg/dL) >600 H >600 H Osmolality Magnesium Alkaline Phosphatase 05/08/18 05/08/18 05/08/18 03:20 04:17 04:21 RBC Hgb Hct Sodium 124 L Potassium Chloride 84 L BUN 48 H Creatinine 6.10 H* Glucose 521 H* POC Glucose (mg/dL) 551 H 466 H Osmolality Magnesium 2.5 H Alkaline Phosphatase 05/08/18 05/08/18 05/08/18 04:23 05:05 06:06 RBC 3.57 L Hgb 10.8 L Hct 33.9 L Sodium Potassium Chloride BUN Creatinine Glucose POC Glucose (mg/dL) 469 H 389 H Osmolality Magnesium Alkaline Phosphatase 05/08/18 05/08/18 05/08/18 07:05 08:06 08:35 RBC Hgb Hct Sodium 127 L Potassium Chloride 88 L BUN 47 H Creatinine 6.26 H* Glucose 219 H POC Glucose (mg/dL) 287 H 240 H Osmolality Magnesium 2.4 H Alkaline Phosphatase 05/08/18 05/08/18 09:36 10:33 RBC Hgb Hct Sodium Potassium Chloride BUN Creatinine Glucose POC Glucose (mg/dL) 192 H 163 H Osmolality Magnesium Alkaline Phosphatase - Diagnostic Findings Chest x-ray: image reviewed (As noted in HPI.) Assessment and Plan Assessment: Impression: 1 acute diabetic hyperosmolar nonketotic state. Remains on IV fluids and insulin drip. 2 poorly controlled hypertension presently on clevidipine. 3 pseudohyponatremia secondary to hyperglycemia 4 chronic renal failure on hemodialysis 5 bilateral pleural effusions secondary to fluid overload secondary to renal failure. May improve with hemodialysis, if not may consider thoracentesis. 6 multiple comorbidities including diabetes with diabetic complications including renal failure and retinopathy, hyperlipidemia, chronic anemia, remote history of peptic ulcer disease, history of osteomyelitis secondary to MRSA and previous amputation/transmetatarsal amputation of the left foot. Recommendation: Continue present treatment plan including fluids, insulin, no need for empiric antibiotics at this point since there is no clear-cut evidence of infection, hemodialysis/ultrafiltration, may or may not require thoracentesis. Continue GI and DVT prophylaxis. We'll continue to follow. Critical care time is 40 minutes. Time with Patient: Greater than 30
[2018-05-08 11:31] LABS: Glucose,Whole Blood 152 mg/dL (75-99)
[2018-05-08] MEDS: PANTOPRAZOLE 40 MG/10 ML VIAL IVP SCH (12:06)
[2018-05-08] MEDS: ENOXAPARIN 30 MG/0.3 ML SYRINGE SQ SCH (12:06)
[2018-05-08] MEDS: HYDROcodone/APAP 5-325MG 1 EACH TAB PO PRN (12:51)
--- NOTE | 2018-05-08 12:53 | US ---
EXAMINATION TYPE: US chest DATE OF EXAM: 05/08/2018 COMPARISON: XRay dated 05/08/2018 CLINICAL HISTORY: Markings for thoracentesis by pulmonary staff. TECHNIQUE: Targeted ultrasound of the posterior lower bilateral hemithoraces EXAM MEASUREMENTS: Right Pleural Effusion pocket size: 7.0 cm free fluid pocket Right skin surface to fluid distance: 3.9 cm Left Pleural Effusion pocket size: 4.6 cm A/P sagittal view Left skin surface to fluid distance: 4.0 cm Right side was marked for possible thoracentesis outside the dept. Left side was marked for possible thoracentesis outside the dept. Pulmonologists are able to review the images in the patient?s EMR. IMPRESSIONS: Bilateral pleural effusions.
[2018-05-08 12:59] LABS: Glucose,Whole Blood 144 mg/dL (75-99)
[2018-05-08] MEDS: CALCIUM ACETATE 667 MG CAP PO SCH ×3 (13:36→21:14)
[2018-05-08 13:46] LABS: Glucose,Whole Blood 160 mg/dL (75-99)
[2018-05-08 14:11] LABS: Glucose,Whole Blood 177 mg/dL (75-99)
[2018-05-08 15:30] LABS: Glucose,Whole Blood 242 mg/dL (75-99)
[2018-05-08] MEDS ORDERED: hydrALAZINE HCL 50 MG TAB PO SCH (16:00)
[2018-05-08 16:46] LABS: Glucose,Whole Blood 273 mg/dL (75-99)
[2018-05-08 17:08] LABS: Calcium 8.8 mg/dL (8.4-10.2); Potassium 6.1 mmol/L (3.5-5.1)
[2018-05-08] MEDS ORDERED: CARVEDILOL 12.5 MG TAB PO SCH (17:30)
[2018-05-08 17:36] LABS: Glucose,Whole Blood 309 mg/dL (75-99)
[2018-05-08 18:55] LABS: Glucose,Whole Blood 291 mg/dL (75-99)
[2018-05-08 20:39] LABS: Calcium 8.7 mg/dL (8.4-10.2)
[2018-05-08 20:45] LABS: Potassium 6.3 mmol/L (3.5-5.1)
--- NOTE | 2018-05-08 20:57 | CONS ---
CONSULTATION REASON FOR CONSULTATION: End-stage renal disease. HISTORY OF PRESENT ILLNESS: The patient is a 38-year-old male with end-stage renal disease, on hemodialysis on a Sunday, Sunday, Sunday schedule. Patient was admitted to the hospital with complaints of increased weakness. He was found to be severely hyperglycemic with blood sugar of more than 600. He was maintained on insulin drip. Patient had also been on IV fluids. As outpatient, patient has had issues with hypervolemia, requiring multiple treatments for UF, trying to keep his weight under control. Patient denied any fever or chills. There is no nausea or vomiting or abdominal pain. PAST MEDICAL HISTORY: 1. End-stage renal disease, on hemodialysis. Stage III. 2. Type 1 diabetes. 3. Anemia of chronic disease. 4. Diabetes retinopathy. 5. History of GI bleed. 6. Hypertension. 7. Pneumonia. 8. Hyperlipidemia. 9. Multiple episodes of volume overload. 10.Peripheral vascular disease. 11.Diabetic foot ulcers. SURGICAL HISTORY: 1. Left great toe amputation. 2. Second to fifth toes on left foot amputated. 3. AV fistula. 4. Retinal detachment. 5. EGD. 6. Colonoscopy. SOCIAL HISTORY: Negative for smoking, drug abuse or alcohol abuse. MEDICATIONS AT HOME PRIOR TO ADMISSION: 1. Cymbalta. 2. [place]. 3. Pravachol. 4. Coreg. 5. Abilify. 6. Prilosec. 7. Vitamin D. 8. PhosLo. 9. Hydralazine. 10.Diltiazem. 11.Insulin. ALLERGIES: 1. LISINOPRIL. 2. LIPITOR. 3. COZAAR. 4. TRAMADOL. PHYSICAL EXAMINATION: Patient is currently comfortable, awake. He is not in any acute distress. His face is edematous. Blood pressure is 164/74, heart rate 87 per minute. He is afebrile. EXAMINATION OF THE HEART: S1, S2. EXAMINATION OF LUNGS: Bilateral breath sounds are heard. ABDOMEN: Soft, non-tender. Examination of lower extremities shows edema 3+ bilaterally. DESK PEN SET ASSEMBLER exam is grossly intact. LABS: Sodium 124, potassium 6.1, BUN of 50, serum creatinine 6.60. ASSESSMENT: 1. End-stage renal disease, on hemodialysis on a Sunday, Sunday, Sunday schedule. We will arrange for hemodialysis today as well as in a.m. 2. Volume overload. Patient will be dialyzed today and again tomorrow. I will discontinue his IV fluids. 3. Hypervolemic hyponatremia also secondary to hyperglycemia, currently at 124. I will discontinue the IV fluids and patient will be dialyzed. This will help with the hyponatremia as well. 4. Hyperkalemia associated with end-stage renal disease and hyperglycemia. Expect improvement post dialysis. 5. Severe hyperglycemia with non-ketotic state, status post insulin drip. PLAN: Discontinue IV fluids. Hemodialysis today as well as in a.m. Continue current phosphate binders. MMODL / IJN: [id number] /
[2018-05-08] MEDS ORDERED: NON-FORMULARY DRUG (Omeprazole 40 MG) PO SCH (21:00)
[2018-05-08] MEDS ORDERED: PRAVASTATIN SODIUM 40 MG TAB PO SCH (21:00)
[2018-05-08] MEDS ORDERED: DULoxetine HCL 60 MG CAPSULE.DR PO SCH (21:00)
[2018-05-08] MEDS ORDERED: ARIPiprazole 10 MG TAB PO SCH (21:00)
[2018-05-08] MEDS ORDERED: DILTIAZEM CD 180 MG CAP.ER.24H PO SCH (21:00)
[2018-05-08 21:02] LABS: Glucose,Whole Blood 262 mg/dL (75-99)
[2018-05-08] MEDS: DULoxetine HCL 60 MG CAPSULE.DR PO SCH (21:14)
[2018-05-08] MEDS: PRAVASTATIN SODIUM 40 MG TAB PO SCH (21:15)
[2018-05-08] MEDS: ARIPiprazole 10 MG TAB PO SCH (21:15)
[2018-05-08] MEDS: INSULIN ASPART 100 UNIT/ML 1 ML 10 ML VIAL SQ SCH (21:15)
[2018-05-08] MEDS: INSULIN DETEMIR 100 UNIT/ML 10 ML VIAL SQ SCH (21:15)
[2018-05-08] MEDS: DILTIAZEM CD 180 MG CAP.ER.24H PO SCH (21:24)
--- NOTE | 2018-05-08 21:57 | HP ---
HISTORY AND PHYSICAL DATE OF ADMISSION: 05/08/2018 DATE OF SERVICE: 05/08/2018 PRESENTING COMPLAINT: Tired, high sugars. HISTORY OF PRESENTING COMPLAINT: This is a 38-year-old patient who follows with Dr. Chad Trevino. The patient has end- stage kidney disease, on hemodialysis Sunday, Sunday and Sunday, hyperlipidemia, peripheral neuropathy, diabetic nephropathy, mineral bone disease and peripheral artery disease. The patient gets hemodialysis on Mondays, Wednesdays and Fridays. The patient yesterday had his regular breakfast and started feeling unwell, and decided to go down to [facility]. The patient was found to be in diabetic ketoacidosis with sugars running close to 1000. He was transferred down here. The patient was admitted to the ICU, put on insulin drip. The patient denies any nausea, vomiting. Denies any fever, chills. The patient does make a little bit of urine. The patient's blood pressure is also running high with a systolic over 200 when he first presented. The patient was put on clevidipine drip and insulin drip, admitted to the ICU. Dr. Tarango was consulted from Critical Care. REVIEW OF SYSTEMS: CONSTITUTIONAL: Weak and tired. HEENT: Decreased vision, more so in the right eye. RESPIRATORY: None. CARDIOVASCULAR: None. GASTROINTESTINAL: Slight nausea. GENITOURINARY: Makes little urine. DERMATOLOGICAL: None. HEMATOLOGICAL: None. LYMPHATICS: None. PSYCHIATRY: None. NEUROLOGICAL: Peripheral neuropathy. PAST MEDICAL HISTORY: 1. Diabetes. 2. Anemia. 3. Hyperlipidemia. 4. Hypertension. 5. Peripheral neuropathy. 6. End-stage kidney disease. 7. Peptic ulcer disease. 8. Hiatal hernia. 9. Diabetic retinopathy. 10.Mineral bone disease. 11.Peripheral artery disease. 12.GI bleed. 13.Peptic ulcer disease. 14.Osteomyelitis. 15.Diabetic foot ulcers. 16.Chronic wound on the right foot. PAST SURGICAL HISTORY: 1. Hiatal hernia. 2. Right eye retinal detachment surgery. 3. Diabetic foot ulcers with amputation. 4. Left great toe amputated. 5. Right chest Mediport x2. SOCIAL HISTORY: Lives with his mother. Does not drive. Has a cane. No smoking. Drinks alcohol rarely. FAMILY HISTORY: Father had a stroke at age of 53 and . HOME MEDICATIONS: 1. Pravachol 40 mg at bedtime. 2. Omeprazole 40 mg at bedtime. 3. [place] 5 one tablet q.6. 4. Vitamin D2 50,000 units on Sunday. 5. Cardizem ER 360 mg at bedtime. 6. Cymbalta 120 mg at bedtime. 7. Abilify 10 mg at bedtime. 8. Levemir 20 units subcutaneously b.i.d. 9. NovoLog protocol subcutaneously before meals and at bedtime. 10.PhosLo 667 mg p.o. t.i.d. 11.Hydralazine 100 mg p.o. t.i.d. 12.Coreg 25 mg p.o. b.i.d. ALLERGIES: 1. LISINOPRIL. 2. LIPITOR. 3. COZAAR. 4. ULTRAM. PHYSICAL EXAMINATION: VITAL SIGNS ON PRESENTATION: Temperature 97.1, pulse 85, respiration 18, blood pressure 221/107, pulse ox 91% on room air. GENERAL APPEARANCE: Average build. Lying in bed, tired-appearing. EYES: Pupils equal. Conjunctivae normal. HEENT: External appearance of nose and ears normal. Oral cavity dry. NECK: JVD unable to assess. Mass not palpable. RESPIRATORY: Effort normal. Lungs are clear. CARDIOVASCULAR: First and second sounds normal. No edema. ABDOMEN: Soft, non-tender. Liver and spleen not palpable. LYMPHATIC: No lymph node palpable in neck or axillae. PSYCHIATRY: Alert and oriented x3. Mood and affect normal. NEUROLOGICAL: Decreased vision. Decreased sensation distally. INVESTIGATIONS: Labs on presentation showed white count 8.1, hemoglobin 11.2, potassium 5.9, BUN 49, creatinine 5.0, sodium 121. Glucose was 895. EKG shows peaked T-waves. Chest x-ray film interpreted by ne shows an AP upright portable with some venous prominence, right pleural effusion. Chest ultrasound shows right pleural effusion. ASSESSMENT: 1. Acute diabetic ketoacidosis in a diabetic. 2. Diabetes mellitus, type 1, chronically on insulin pump. 3. Pseudohyponatremia. 4. Hyperkalemia due to renal failure. 5. Peripheral neuropathy and diabetic retinopathy from diabetes. 6. Anemia secondary to chronic kidney disease. 7. End-stage kidney disease, on hemodialysis Sunday, Sunday and Sunday. 8. Mineral bone disease secondary to chronic disease. 9. Accelerated hypertension. PLAN: Patient was put on insulin drip. For the accelerated hypertension, he was put on clevidipine drip. Oral antihypertensive was also started; hope them to kick in. Consultations were made to Nephrology and Critical Care. Care was discussed with the patient. Rosanox for DVT prophylaxis. MMODL / IJN: [id number] /
[2018-05-08] MEDS: hydrALAZINE HCL 25 MG TAB PO SCH (22:06)
[2018-05-08] MEDS: CARVEDILOL 12.5 MG TAB PO SCH (23:19)
[2018-05-08 23:43] LABS: Glucose,Whole Blood 138 mg/dL (75-99)
[2018-05-09] MEDS: HYDROcodone/APAP 5-325MG 1 EACH TAB PO PRN ×2 (00:06→14:05)
[2018-05-09 00:36] LABS: Calcium 8.8 mg/dL (8.4-10.2); Potassium 4.2 mmol/L (3.5-5.1)
[2018-05-09 02:22] LABS: Glucose,Whole Blood 129 mg/dL (75-99)
[2018-05-09] MEDS: INSULIN ASPART 100 UNIT/ML 1 ML 10 ML VIAL SQ SCH ×5 (02:59→21:23)
[2018-05-09] MEDS: CLEVIDIPINE BUTYRATE 25 MG in EMPTY BAG 1 BAG IV SCH (03:50)
[2018-05-09 05:27] LABS: Hepatitis B Surface AB- Quant 3.5 mIU/mL
[2018-05-09 06:21] LABS: Calcium 8.7 mg/dL (8.4-10.2); Magnesium 2.3 mg/dL (1.6-2.3); Phosphorus 4.8 mg/dL (2.5-4.5); Potassium 4.9 mmol/L (3.5-5.1)
[2018-05-09 08:11] LABS: Glucose,Whole Blood 81 mg/dL (75-99)
[2018-05-09] MEDS: ENOXAPARIN 30 MG/0.3 ML SYRINGE SQ SCH (08:27)
[2018-05-09] MEDS: INSULIN DETEMIR 100 UNIT/ML 10 ML VIAL SQ SCH ×2 (08:29→21:22)
[2018-05-09] MEDS: CARVEDILOL 12.5 MG TAB PO SCH ×2 (08:33→16:38)
[2018-05-09] MEDS: hydrALAZINE HCL 25 MG TAB PO SCH ×3 (08:33→21:18)
[2018-05-09] MEDS: CALCIUM ACETATE 667 MG CAP PO SCH ×3 (08:34→21:18)
[2018-05-09] MEDS: PANTOPRAZOLE 40 MG/10 ML VIAL IVP SCH (08:34)
--- NOTE | 2018-05-09 09:23 | P.PN ---
Subjective Patient is seen in follow-up for end-stage renal disease. He is maintained on hemodialysis on a Sunday schedule via right upper extremity AV fistula. Patient's blood sugar was over 600 on admission. He is now off insulin drip and blood sugar this morning was 81. Oral intake is good. He underwent hemodialysis yesterday with 3 L ultrafiltration and is scheduled for another treatment today. Denies chest pain or shortness of breath. Vital signs are stable. General: The patient appeared well nourished and normally developed. HEENT: Head exam is unremarkable. Neck is without jugular venous distension. LUNGS: Lungs are clear to auscultation and percussion. Breath sounds decreased. HEART: Rate and Rhythm are regular. First and second heart sounds normal. No murmurs, rubs or gallops. ABDOMEN: Abdominal exam reveals normal bowel sounds. Non-tender and non- distended. No evidence of peritonitis. EXTREMITITES: No clubbing, cyanosis, or edema. Objective - Vital Signs Vital signs: Vital Signs Temp 98.7 F 05/09/18 04:00 Pulse 68 05/09/18 06:30 Resp 40 H 05/09/18 05:30 BP 119/72 05/09/18 06:30 Pulse Ox 96 05/09/18 06:30 Intake & Output 05/08/18 05/09/18 05/09/18 18:59 06:59 18:59 Intake Total 1428.014 372.000 8.733 Output Total 0 0 Balance 1428.014 372.000 8.733 Weight 103.1 kg 101.5 kg Intake: IV 805 240 D5-0.45% NaCl with KCl 605 40 20Meq/l 1,000 ml @ 20 mls /hr IV .Q24H [facility] Rx#: [id number] Sodium Chloride 0.9% 1, 200 000 ml @ 20 mls/hr IV . Q24H [facility] Rx#:[id number] Sodium Chloride 0.9% 1, 200 000 ml @ 200 mls/hr IV . Q5H [facility] Rx#:[id number] Intake, IV Titration 623.014 132.000 8.733 Amount Clevidipine Butyrate 25 142.8 132.000 8.733 mg In Empty Bag 1 bag @ 1 MG/HR 2 mls/hr IV .Q24H [facility] Rx#:[id number] D5-0.45% NaCl with KCl 225 20Meq/l 1,000 ml @ 20 mls /hr IV .Q24H [facility] Rx#: [id number] Insulin Regular 100 unit 255.214 In Sodium Chloride 0.9% 100 ml @ 0.1 UNITS/KG/HR 10.41 mls/hr IV .Q9H43M [facility] Rx#:[id number] Output: Urine 0 0 Other: Voiding Method Urinal Urinal - Labs CBC & Chem 7: 05/08/18 04:23 05/09/18 05:40 Labs: Abnormal Lab Results - Last 24 Hours (Table) 05/08/18 05/08/18 05/08/18 Range/Units 08:35 09:36 10:33 Sodium 127 L (137-145) mmol/L Potassium (3.5-5.1) mmol/L Chloride 88 L (98-107) mmol/L Carbon Dioxide (22-30) mmol/L BUN 47 H (9-20) mg/dL Creatinine 6.26 H* (0.66-1.25) mg/dL Glucose 219 H (74-99) mg/dL POC Glucose (mg/dL) 192 H 163 H (75-99) mg/dL Phosphorus (2.5-4.5) mg/dL Magnesium 2.4 H (1.6-2.3) mg/dL 05/08/18 05/08/18 05/08/18 Range/Units 11:30 12:57 13:45 Sodium (137-145) mmol/L Potassium (3.5-5.1) mmol/L Chloride (98-107) mmol/L Carbon Dioxide (22-30) mmol/L BUN (9-20) mg/dL Creatinine (0.66-1.25) mg/dL Glucose (74-99) mg/dL POC Glucose (mg/dL) 152 H 144 H 160 H (75-99) mg/dL Phosphorus (2.5-4.5) mg/dL Magnesium (1.6-2.3) mg/dL 05/08/18 05/08/18 05/08/18 Range/Units 14:09 15:28 16:35 Sodium 124 L (137-145) mmol/L Potassium 6.1 H (3.5-5.1) mmol/L Chloride 87 L (98-107) mmol/L Carbon Dioxide 21 L (22-30) mmol/L BUN 50 H (9-20) mg/dL Creatinine 6.60 H* (0.66-1.25) mg/dL Glucose 277 H (74-99) mg/dL POC Glucose (mg/dL) 177 H 242 H (75-99) mg/dL Phosphorus (2.5-4.5) mg/dL Magnesium (1.6-2.3) mg/dL 05/08/18 05/08/18 05/08/18 Range/Units 16:43 17:34 18:49 Sodium (137-145) mmol/L Potassium (3.5-5.1) mmol/L Chloride (98-107) mmol/L Carbon Dioxide (22-30) mmol/L BUN (9-20) mg/dL Creatinine (0.66-1.25) mg/dL Glucose (74-99) mg/dL POC Glucose (mg/dL) 273 H 309 H 291 H (75-99) mg/dL Phosphorus (2.5-4.5) mg/dL Magnesium (1.6-2.3) mg/dL 05/08/18 05/08/18 05/08/18 Range/Units 20:00 21:00 23:41 Sodium 124 L (137-145) mmol/L Potassium 6.3 H* (3.5-5.1) mmol/L Chloride 88 L (98-107) mmol/L Carbon Dioxide 21 L (22-30) mmol/L BUN 52 H (9-20) mg/dL Creatinine 6.83 H* (0.66-1.25) mg/dL Glucose 278 H (74-99) mg/dL POC Glucose (mg/dL) 262 H 138 H (75-99) mg/dL Phosphorus (2.5-4.5) mg/dL Magnesium (1.6-2.3) mg/dL 05/09/18 05/09/18 05/09/18 Range/Units 00:06 02:20 05:40 Sodium 128 L 130 L (137-145) mmol/L Potassium (3.5-5.1) mmol/L Chloride 93 L 95 L (98-107) mmol/L Carbon Dioxide (22-30) mmol/L BUN 31 H 33 H (9-20) mg/dL Creatinine 4.60 H 5.46 H* (0.66-1.25) mg/dL Glucose 143 H (74-99) mg/dL POC Glucose (mg/dL) 129 H (75-99) mg/dL Phosphorus 4.8 H (2.5-4.5) mg/dL Magnesium (1.6-2.3) mg/dL Assessment and Plan Plan: Assessment: 1. End-stage renal disease maintained on hemodialysis on a Sunday schedule via right upper extremity AV fistula. 2. Volume overload. Improved post ultrafiltration yesterday. 3. Hypervolemic hyponatremia along with a component of hypertonic hyponatremia from hyperglycemia. Improved. 4. Hyperkalemia secondary to chronic kidney disease and hyperglycemia. Improved postdialysis. 5. Chronic kidney disease mineral bone disease maintained on PhosLo. 6. Severe hyperglycemia for nonketotic state status post insulin drip. 7. Hypertension with chronic kidney disease. Plan: Extra hemodialysis treatment today with goal 2-3 L ultrafiltration. Another treatment tomorrow per his outpatient schedule. Oral antihypertensives have been resumed. Expect further improvement blood pressure post ultrafiltration. Encourage oral intake.
[2018-05-09 11:43] LABS: Basophils % (A) 1 %; Eosinophils # (A) 0.4 k/uL (0-0.7); Eosinophils % (A) 5 %; HCT 32.3 % (39.0-53.0); HGB 10.4 gm/dL (13.0-17.5); Lymphocytes # (A) 1.1 k/uL (1.0-4.8); Lymphocytes % (A) 14 %; MCH 30.6 pg (25.0-35.0); MCHC 32.1 g/dL (31.0-37.0); MCV 95.1 fL (80.0-100.0); Mean Platelet Volume 8.2; Monocytes # (A) 0.5 k/uL (0-1.0); Monocytes % (A) 7 %; Neutrophils # (A) 5.7 k/uL (1.3-7.7); Neutrophils % (A) 73 %; Platelet Count 162 k/uL (150-450); RBC 3.39 m/uL (4.30-5.90); RDW 15.2 % (11.5-15.5); WBC 7.9 k/uL (3.8-10.6)
[2018-05-09 12:04] LABS: Glucose,Whole Blood 72 mg/dL (75-99)
--- NOTE | 2018-05-09 13:35 | P.PN ---
Subjective Progress Note Date: 05/09/18 Principal diagnosis: Acute hyperosmolar nonketotic state This is a 38-year-old male with history of multiple medical problems including chronic kidney disease, patient is on hemodialysis for the last 2 years. Type 1 diabetes since he was 21 years old. 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 Patient presented to [facility] yesterday with complaints of 1 day history of weakness. Apparently had a partial dialysis that day, but upon evaluation in the ER, his sugars were noted to be extremely elevated. Patient was also noted to have pseudohyponatremia. Arrangements were made for the patient to be transferred to [facility], and he presented to the ER last night. Blood sugar was close to 900. He was also noted to have an anion gap metabolic acidosis. Low sodium of 121, but this is felt to be pseudohyponatremia rather than true hyponatremia. Patient was given fluids, placed on insulin drip, admitted to the ICU, and I was asked to see him on consultation. Patient is feeling better, his sugar this morning is 190. His anion gap is down from 19- 15. Renal functioning is basically about the same, and his sodium now is 127. CBC was relatively normal except for hemoglobin of 10.8. Patient denies any specific pain, he feels generally weak, denies any headache, no blurred vision, no dizziness. Some shortness of breath, but no cough no wheezing no chest pain no nausea no vomiting and no abdominal pain. Upon arrival to the ICU early this morning, patient was noted to have significantly elevated blood pressure, was not responding to hydralazine and labetalol, hence I recommended clevidipine. Patient was placed on a drip, and his blood pressure now seems to be much better controled Patient was reevaluated today on 05/09/2018, doing much better, off the insulin drip, undergoing dialysis today again, has bilateral pleural effusions, no plans to do thoracentesis at this point as long as we can possibly remove fluid by ultrafiltration. Clinically the patient is asymptomatic, no cough no wheezing no shortness of breath and no chest pain. CBC is relatively normal basic metabolic profile is normal on iron gap is 11 BUN is 33 creatinine is 5.46. Patient will have dialysis again today, I reviewed the results of the ultrasound, there is a good sized right-sided pleural effusion, but again considering the patient is asymptomatic, and considering his still undergoing dialysis and ultrafiltration, I believe the fluid will resolve with dialysis. Objective - Vital Signs Vital signs: Vital Signs Temp 98.3 F 05/09/18 08:00 Pulse 73 05/09/18 09:30 Resp 12 05/09/18 09:30 BP 152/76 05/09/18 09:00 Pulse Ox 96 05/09/18 09:30 Intake & Output 05/08/18 05/09/18 05/09/18 18:59 06:59 18:59 Intake Total 1428.014 372.000 48.733 Output Total 0 0 0 Balance 1428.014 372.000 48.733 Weight 103.1 kg 101.5 kg Intake: IV 805 240 40 D5-0.45% NaCl with KCl 605 40 20Meq/l 1,000 ml @ 20 mls /hr IV .Q24H [facility] Rx#: [id number] Sodium Chloride 0.9% 1, 200 40 000 ml @ 20 mls/hr IV . Q24H [facility] Rx#:[id number] Sodium Chloride 0.9% 1, 200 000 ml @ 200 mls/hr IV . Q5H [facility] Rx#:[id number] Intake, IV Titration 623.014 132.000 8.733 Amount Clevidipine Butyrate 25 142.8 132.000 8.733 mg In Empty Bag 1 bag @ 1 MG/HR 2 mls/hr IV .Q24H [facility] Rx#:[id number] D5-0.45% NaCl with KCl 225 20Meq/l 1,000 ml @ 20 mls /hr IV .Q24H [facility] Rx#: [id number] Insulin Regular 100 unit 255.214 In Sodium Chloride 0.9% 100 ml @ 0.1 UNITS/KG/HR 10.41 mls/hr IV .Q9H43M [facility] Rx#:[id number] Output: Urine 0 0 0 Other: Voiding Method Urinal Urinal Urinal - Exam Physical Exam: Revealed a 38-year-old male in no distress. Head: Atraumatic, normocephalic. HEENT:[Neck is supple.] [No neck masses.] [No thyromegaly.] [No JVD.] Chest: [Diminished breath sounds and dullness at the bases especially at the right base, no crackles or rhonchi or wheezes.] Cardiac Exam: [Distant S1 and S2, no S3 gallop, no murmur.] Abdomen: [Soft, nontender, no megaly, no rebound, no guarding, normal bowel sounds.] Extremities: [No clubbing, no edema, no cyanosis.] AV fistula noted in the left forearm, evidence of transmetatarsal amputation of the left foot secondary to previous episode of osteomyelitis and MRSA infection. Neurological Exam: Sleepy, but arousable, and no gross focal neurologic deficit. Psychiatric: Normal mood affect and mental status examination. Lymphatics: No lymphadenopathy. - Labs CBC & Chem 7: 05/09/18 11:00 05/09/18 05:40 Labs: Abnormal Lab Results - Last 24 Hours (Table) 05/08/18 05/08/18 05/08/18 Range/Units 13:45 14:09 15:28 RBC (4.30-5.90) m/uL Hgb (13.0-17.5) gm/dL Hct (39.0-53.0) % Sodium (137-145) mmol/L Potassium (3.5-5.1) mmol/L Chloride (98-107) mmol/L Carbon Dioxide (22-30) mmol/L BUN (9-20) mg/dL Creatinine (0.66-1.25) mg/dL Glucose (74-99) mg/dL POC Glucose (mg/dL) 160 H 177 H 242 H (75-99) mg/dL Phosphorus (2.5-4.5) mg/dL 05/08/18 05/08/18 05/08/18 Range/Units 16:35 16:43 17:34 RBC (4.30-5.90) m/uL Hgb (13.0-17.5) gm/dL Hct (39.0-53.0) % Sodium 124 L (137-145) mmol/L Potassium 6.1 H (3.5-5.1) mmol/L Chloride 87 L (98-107) mmol/L Carbon Dioxide 21 L (22-30) mmol/L BUN 50 H (9-20) mg/dL Creatinine 6.60 H* (0.66-1.25) mg/dL Glucose 277 H (74-99) mg/dL POC Glucose (mg/dL) 273 H 309 H (75-99) mg/dL Phosphorus (2.5-4.5) mg/dL 05/08/18 05/08/18 05/08/18 Range/Units 18:49 20:00 21:00 RBC (4.30-5.90) m/uL Hgb (13.0-17.5) gm/dL Hct (39.0-53.0) % Sodium 124 L (137-145) mmol/L Potassium 6.3 H* (3.5-5.1) mmol/L Chloride 88 L (98-107) mmol/L Carbon Dioxide 21 L (22-30) mmol/L BUN 52 H (9-20) mg/dL Creatinine 6.83 H* (0.66-1.25) mg/dL Glucose 278 H (74-99) mg/dL POC Glucose (mg/dL) 291 H 262 H (75-99) mg/dL Phosphorus (2.5-4.5) mg/dL 05/08/18 05/09/18 05/09/18 Range/Units 23:41 00:06 02:20 RBC (4.30-5.90) m/uL Hgb (13.0-17.5) gm/dL Hct (39.0-53.0) % Sodium 128 L (137-145) mmol/L Potassium (3.5-5.1) mmol/L Chloride 93 L (98-107) mmol/L Carbon Dioxide (22-30) mmol/L BUN 31 H (9-20) mg/dL Creatinine 4.60 H (0.66-1.25) mg/dL Glucose 143 H (74-99) mg/dL POC Glucose (mg/dL) 138 H 129 H (75-99) mg/dL Phosphorus (2.5-4.5) mg/dL 05/09/18 05/09/18 05/09/18 Range/Units 05:40 11:00 12:02 RBC 3.39 L (4.30-5.90) m/uL Hgb 10.4 L (13.0-17.5) gm/dL Hct 32.3 L (39.0-53.0) % Sodium 130 L (137-145) mmol/L Potassium (3.5-5.1) mmol/L Chloride 95 L (98-107) mmol/L Carbon Dioxide (22-30) mmol/L BUN 33 H (9-20) mg/dL Creatinine 5.46 H* (0.66-1.25) mg/dL Glucose (74-99) mg/dL POC Glucose (mg/dL) 72 L (75-99) mg/dL Phosphorus 4.8 H (2.5-4.5) mg/dL Assessment and Plan Assessment: Impression: 1 acute diabetic hyperosmolar nonketotic state. Significantly improved, off insulin drip. 2 poorly controlled hypertension patient was on clevidipine on telemetry early this morning, and now he is back on his usual oral meds for blood pressure. 3 pseudohyponatremia secondary to hyperglycemia, mostly resolved by correcting his hyperglycemia 4 chronic renal failure on hemodialysis 5 bilateral pleural effusions secondary to fluid overload secondary to renal failure. May improve with hemodialysis, no plans to do thoracentesis at this point. Ultrasound of the chest was reviewed. 6 multiple comorbidities including diabetes with diabetic complications including renal failure and retinopathy, hyperlipidemia, chronic anemia, remote history of peptic ulcer disease, history of osteomyelitis secondary to MRSA and previous amputation/transmetatarsal amputation of the left foot. Recommendation: Continue present treatment plan including subcu insulin, blood pressure control with different meds, hemodialysis, patient will be transferred out of the ICU to a regular medical floor with remote telemetry today. We'll continue to follow Time with Patient: Less than 30
[2018-05-09 13:59] LABS: Hemoglobin A1C 13.8 % (4.0-6.0)
[2018-05-09] MEDS: hydrALAZINE HCL 20 MG/ML 1 ML VIAL IVP PRN (14:06)
[2018-05-09 17:26] LABS: Glucose,Whole Blood 112 mg/dL (75-99)
[2018-05-09] MEDS ORDERED: METOCLOPRAMIDE 5 MG/ML 2 ML VIAL IVP PRN (18:03)
[2018-05-09 21:00] LABS: Glucose,Whole Blood 139 mg/dL (75-99)
[2018-05-09] MEDS: SODIUM CHLORIDE 0.9% 1,000 ML IV SCH (21:14)
[2018-05-09] MEDS: ARIPiprazole 10 MG TAB PO SCH (21:15)
[2018-05-09] MEDS: DULoxetine HCL 60 MG CAPSULE.DR PO SCH (21:16)
[2018-05-09] MEDS: DILTIAZEM CD 180 MG CAP.ER.24H PO SCH (21:16)
[2018-05-09] MEDS: PRAVASTATIN SODIUM 40 MG TAB PO SCH (21:17)
[2018-05-09] MEDS ORDERED: CARVEDILOL 12.5 MG TAB PO STA (23:30)
[2018-05-10 02:18] LABS: Glucose,Whole Blood 192 mg/dL (75-99)
[2018-05-10] MEDS: INSULIN ASPART 100 UNIT/ML 1 ML 10 ML VIAL SQ SCH ×3 (02:39→12:54)
[2018-05-10 05:09] LABS: HCT 34.3 % (39.0-53.0); HGB 10.7 gm/dL (13.0-17.5); Hypochromasia Slight; MCHC 31.2 g/dL (31.0-37.0); MCV 96.3 fL (80.0-100.0); Mean Platelet Volume 8.1; Platelet Count 165 k/uL (150-450); RBC 3.56 m/uL (4.30-5.90); RDW 15.3 % (11.5-15.5); WBC 7.8 k/uL (3.8-10.6)
[2018-05-10 05:19] LABS: Calcium 8.9 mg/dL (8.4-10.2); Magnesium 2.4 mg/dL (1.6-2.3); Phosphorus 5.4 mg/dL (2.5-4.5); Potassium 4.7 mmol/L (3.5-5.1)
[2018-05-10 06:13] VITALS: RESP 12; TEMP 98
--- NOTE | 2018-05-10 07:08 | PN ---
PROGRESS NOTE DATE OF SERVICE: 05/09/2018 PRESENTING COMPLAINT: High sugars. INTERVAL HISTORY: This is a patient on hemodialysis presented with nonketotic hyperglycemia, not diabetic ketoacidosis, was switched over to his home dose insulin. Did tolerate some diet. Getting hemodialyzed and was out of bed. The patient was on IV clevidipine drip that was discontinued this morning. Feels a bit tired. REVIEW OF SYSTEMS: Done for constitutional, cardiovascular, GI, pulmonary; relevant findings as above. CURRENT MEDICATIONS: Current medications are reviewed that includes Levemir 20 units subcu b.i.d. PHYSICAL EXAMINATION: On examination, temperature 98, pulse 82, respirations 17, blood pressure 175/89 pulse ox 96% on 2 L. GENERAL APPEARANCE: Lying in bed, awake. EYES: Pupils equal. Conjunctivae normal. HENT: External appearance of nose and ears normal. Oral cavity dry. NECK: JVD not raised. Mass not palpable. RESPIRATORY: Effort normal. LUNGS: Fair entry. CARDIOVASCULAR: First and second sounds normal. Some edema is present. ABDOMEN: Soft, nontender. Liver and spleen not palpable. PSYCHIATRY: Alert and oriented x3. Mood and affect normal. INVESTIGATIONS: White count 7.9, hemoglobin 10.4. Accu-Cheks are noted. ASSESSMENT: 1. Acute nonketotic hyperglycemia. There was no diabetic ketoacidosis that is a correction. 2. Diabetes mellitus type 2, chronically on insulin pump. 3. Pseudohyponatremia, corrected. 4. Hyperkalemia due to renal failure. 5. Peripheral neuropathy and diabetic retinopathy from diabetes. 6. Anemia secondary to chronic kidney disease. 7. End-stage kidney disease on hemodialysis Sunday, Sunday and Sunday. 8. Mineral bone disease due to chronic kidney disease. 9. hypertension, becoming better. Care was discussed with the patient. Continue current medication and treatment plan. We will increase the patient's Coreg to 25 mg twice a day. The patient has got hemodialyzed today and 2 or 3 L of ultrafiltration was done due for another treatment tomorrow. MMODL / IJN: [id number] /
[2018-05-10 07:13] LABS: Glucose,Whole Blood 220 mg/dL (75-99)
[2018-05-10] MEDS ORDERED: CARVEDILOL 12.5 MG TAB PO SCH (07:30)
--- NOTE | 2018-05-10 08:15 | P.PN ---
Subjective Patient is seen in follow-up for end-stage renal disease. He is maintained on hemodialysis on a Sunday schedule via right upper extremity AV fistula. Patient's blood sugar was over 600 on admission. He is now off insulin drip and blood sugar this morning was 193. Oral intake is good. He underwent hemodialysis yesterday with 3 L ultrafiltration and is scheduled for another treatment today. Denies chest pain or shortness of breath. Vital signs are stable. General: The patient appeared well nourished and normally developed. HEENT: Head exam is unremarkable. Neck is without jugular venous distension. LUNGS: Lungs are clear to auscultation and percussion. Breath sounds decreased. HEART: Rate and Rhythm are regular. First and second heart sounds normal. No murmurs, rubs or gallops. ABDOMEN: Abdominal exam reveals normal bowel sounds. Non-tender and non- distended. No evidence of peritonitis. EXTREMITITES: No clubbing, cyanosis, or edema. Objective - Vital Signs Vital signs: Vital Signs Temp 98.0 F 05/10/18 06:13 Pulse 89 05/09/18 22:02 Resp 12 05/10/18 06:13 BP 174/88 05/10/18 06:13 Pulse Ox 96 05/10/18 06:13 Intake & Output 05/09/18 05/10/18 05/10/18 18:59 06:59 18:59 Intake Total 348.733 220 Output Total 0 50 Balance 348.733 170 Intake: IV 100 20 Sodium Chloride 0.9% 1, 100 20 000 ml @ 20 mls/hr IV . Q24H [facility] Rx#:[id number] Intake, IV Titration 8.733 Amount Clevidipine Butyrate 25 8.733 mg In Empty Bag 1 bag @ 1 MG/HR 2 mls/hr IV .Q24H [facility] Rx#:[id number] Oral 240 200 Output: Urine 0 50 Other: Voiding Method Urinal Urinal - Labs CBC & Chem 7: 05/10/18 04:42 05/10/18 04:42 Labs: Abnormal Lab Results - Last 24 Hours (Table) 05/09/18 05/09/18 05/09/18 Range/Units 00:06 11:00 12:02 RBC 3.39 L (4.30-5.90) m/uL Hgb 10.4 L (13.0-17.5) gm/dL Hct 32.3 L (39.0-53.0) % Sodium (137-145) mmol/L Chloride (98-107) mmol/L BUN (9-20) mg/dL Creatinine (0.66-1.25) mg/dL Glucose (74-99) mg/dL POC Glucose (mg/dL) 72 L (75-99) mg/dL Hemoglobin A1c 13.8 H (4.0-6.0) % Phosphorus (2.5-4.5) mg/dL Magnesium (1.6-2.3) mg/dL 05/09/18 05/09/18 05/10/18 Range/Units 17:24 20:59 02:16 RBC (4.30-5.90) m/uL Hgb (13.0-17.5) gm/dL Hct (39.0-53.0) % Sodium (137-145) mmol/L Chloride (98-107) mmol/L BUN (9-20) mg/dL Creatinine (0.66-1.25) mg/dL Glucose (74-99) mg/dL POC Glucose (mg/dL) 112 H 139 H 192 H (75-99) mg/dL Hemoglobin A1c (4.0-6.0) % Phosphorus (2.5-4.5) mg/dL Magnesium (1.6-2.3) mg/dL 05/10/18 05/10/18 05/10/18 Range/Units 04:42 04:42 07:12 RBC 3.56 L (4.30-5.90) m/uL Hgb 10.7 L (13.0-17.5) gm/dL Hct 34.3 L (39.0-53.0) % Sodium 130 L (137-145) mmol/L Chloride 94 L (98-107) mmol/L BUN 25 H (9-20) mg/dL Creatinine 5.10 H* (0.66-1.25) mg/dL Glucose 193 H (74-99) mg/dL POC Glucose (mg/dL) 220 H (75-99) mg/dL Hemoglobin A1c (4.0-6.0) % Phosphorus 5.4 H (2.5-4.5) mg/dL Magnesium 2.4 H (1.6-2.3) mg/dL Assessment and Plan Plan: Assessment: 1. End-stage renal disease maintained on hemodialysis on a Sunday schedule via right upper extremity AV fistula. 2. Volume overload. Improving with ultrafiltration. 3. Hypervolemic hyponatremia along with a component of hypertonic hyponatremia from hyperglycemia. Improved. 4. Hyperkalemia secondary to chronic kidney disease and hyperglycemia. Improved postdialysis. 5. Chronic kidney disease mineral bone disease maintained on PhosLo. 6. Severe hyperglycemia for nonketotic state status post insulin drip. 7. Hypertension with chronic kidney disease. Plan: Hemodialysis treatment today with goal 3 L ultrafiltration. Add oral Lasix 80 mg orally twice daily. Oral antihypertensives have been resumed. Expect further improvement blood pressure post ultrafiltration. Encourage oral intake. Potential discharge after dialysis today.
[2018-05-10] MEDS: INSULIN DETEMIR 100 UNIT/ML 10 ML VIAL SQ SCH (08:50)
[2018-05-10] MEDS: PANTOPRAZOLE 40 MG/10 ML VIAL IVP SCH (08:56)
[2018-05-10] MEDS: CALCIUM ACETATE 667 MG CAP PO SCH (08:56)
[2018-05-10] MEDS: ENOXAPARIN 30 MG/0.3 ML SYRINGE SQ SCH (08:56)
[2018-05-10] MEDS ORDERED: FUROSEMIDE 80 MG TAB PO SCH (09:00)
[2018-05-10 11:37] VITALS: BMI 28.7
[2018-05-10 12:17] LABS: Glucose,Whole Blood 120 mg/dL (75-99)
[2018-05-10 12:52] VITALS: BP 177/87; PULSE 70
[2018-05-10] MEDS: hydrALAZINE HCL 25 MG TAB PO SCH (12:52)
--- NOTE | 2018-05-10 13:13 | P.PN ---
Subjective Progress Note Date: 05/10/18 Principal diagnosis: Acute hyperosmolar nonketotic state This is a 38-year-old male with history of multiple medical problems including chronic kidney disease, patient is on hemodialysis for the last 2 years. Type 1 diabetes since he was 21 years old. 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 Patient presented to [facility] yesterday with complaints of 1 day history of weakness. Apparently had a partial dialysis that day, but upon evaluation in the ER, his sugars were noted to be extremely elevated. Patient was also noted to have pseudohyponatremia. Arrangements were made for the patient to be transferred to [facility], and he presented to the ER last night. Blood sugar was close to 900. He was also noted to have an anion gap metabolic acidosis. Low sodium of 121, but this is felt to be pseudohyponatremia rather than true hyponatremia. Patient was given fluids, placed on insulin drip, admitted to the ICU, and I was asked to see him on consultation. Patient is feeling better, his sugar this morning is 190. His anion gap is down from 19- 15. Renal functioning is basically about the same, and his sodium now is 127. CBC was relatively normal except for hemoglobin of 10.8. Patient denies any specific pain, he feels generally weak, denies any headache, no blurred vision, no dizziness. Some shortness of breath, but no cough no wheezing no chest pain no nausea no vomiting and no abdominal pain. Upon arrival to the ICU early this morning, patient was noted to have significantly elevated blood pressure, was not responding to hydralazine and labetalol, hence I recommended clevidipine. Patient was placed on a drip, and his blood pressure now seems to be much better controled Patient was reevaluated today on 05/09/2018, doing much better, off the insulin drip, undergoing dialysis today again, has bilateral pleural effusions, no plans to do thoracentesis at this point as long as we can possibly remove fluid by ultrafiltration. Clinically the patient is asymptomatic, no cough no wheezing no shortness of breath and no chest pain. CBC is relatively normal basic metabolic profile is normal on iron gap is 11 BUN is 33 creatinine is 5.46. Patient will have dialysis again today, I reviewed the results of the ultrasound, there is a good sized right-sided pleural effusion, but again considering the patient is asymptomatic, and considering his still undergoing dialysis and ultrafiltration, I believe the fluid will resolve with dialysis. Patient was reevaluated today on 05/10/2018, doing well, he is back on his usual meds, receiving dialysis today, and after dialysis patient is being considered for discharge home. No cough no wheezing no shortness of breath. Patient feels that he is back to his baseline. Labs were reviewed including CBC and basic metabolic profile. Bicarb is 26 BUN is 25 creatinine is 5.10. Objective - Vital Signs Vital signs: Vital Signs Temp 98.0 F 05/10/18 06:13 Pulse 70 05/10/18 12:51 Resp 12 05/10/18 06:13 BP 177/87 05/10/18 12:51 Pulse Ox 96 05/10/18 06:13 Intake & Output 05/09/18 05/10/18 05/10/18 18:59 06:59 18:59 Intake Total 348.733 220 Output Total 0 50 Balance 348.733 170 Weight 101.5 kg Intake: IV 100 20 Sodium Chloride 0.9% 1, 100 20 000 ml @ 20 mls/hr IV . Q24H [facility] Rx#:[id number] Intake, IV Titration 8.733 Amount Clevidipine Butyrate 25 8.733 mg In Empty Bag 1 bag @ 1 MG/HR 2 mls/hr IV .Q24H [facility] Rx#:[id number] Oral 240 200 Output: Urine 0 50 Other: Voiding Method Urinal Urinal Urinal - Exam Physical Exam: Revealed a 38-year-old male in no distress. Head: Atraumatic, normocephalic. HEENT:[Neck is supple.] [No neck masses.] [No thyromegaly.] [No JVD.] Chest: [Diminished breath sounds and dullness at the bases especially at the right base, no crackles or rhonchi or wheezes.] Cardiac Exam: [Distant S1 and S2, no S3 gallop, no murmur.] Abdomen: [Soft, nontender, no megaly, no rebound, no guarding, normal bowel sounds.] Extremities: [No clubbing, no edema, no cyanosis.] AV fistula noted in the left forearm, evidence of transmetatarsal amputation of the left foot secondary to previous episode of osteomyelitis and MRSA infection. Neurological Exam: Sleepy, but arousable, and no gross focal neurologic deficit. Psychiatric: Normal mood affect and mental status examination. Lymphatics: No lymphadenopathy. - Labs CBC & Chem 7: 05/10/18 04:42 05/10/18 04:42 Labs: Abnormal Lab Results - Last 24 Hours (Table) 05/09/18 05/09/18 05/09/18 Range/Units 00:06 17:24 20:59 RBC (4.30-5.90) m/uL Hgb (13.0-17.5) gm/dL Hct (39.0-53.0) % Sodium (137-145) mmol/L Chloride (98-107) mmol/L BUN (9-20) mg/dL Creatinine (0.66-1.25) mg/dL Glucose (74-99) mg/dL POC Glucose (mg/dL) 112 H 139 H (75-99) mg/dL Hemoglobin A1c 13.8 H (4.0-6.0) % Phosphorus (2.5-4.5) mg/dL Magnesium (1.6-2.3) mg/dL 05/10/18 05/10/18 05/10/18 Range/Units 02:16 04:42 04:42 RBC 3.56 L (4.30-5.90) m/uL Hgb 10.7 L (13.0-17.5) gm/dL Hct 34.3 L (39.0-53.0) % Sodium 130 L (137-145) mmol/L Chloride 94 L (98-107) mmol/L BUN 25 H (9-20) mg/dL Creatinine 5.10 H* (0.66-1.25) mg/dL Glucose 193 H (74-99) mg/dL POC Glucose (mg/dL) 192 H (75-99) mg/dL Hemoglobin A1c (4.0-6.0) % Phosphorus 5.4 H (2.5-4.5) mg/dL Magnesium 2.4 H (1.6-2.3) mg/dL 05/10/18 05/10/18 Range/Units 07:12 12:15 RBC (4.30-5.90) m/uL Hgb (13.0-17.5) gm/dL Hct (39.0-53.0) % Sodium (137-145) mmol/L Chloride (98-107) mmol/L BUN (9-20) mg/dL Creatinine (0.66-1.25) mg/dL Glucose (74-99) mg/dL POC Glucose (mg/dL) 220 H 120 H (75-99) mg/dL Hemoglobin A1c (4.0-6.0) % Phosphorus (2.5-4.5) mg/dL Magnesium (1.6-2.3) mg/dL Assessment and Plan Assessment: Impression: 1 acute diabetic hyperosmolar nonketotic state. Resolved. 2 poorly controlled hypertension, back on his usual meds, blood pressure is better controlled. 3 pseudohyponatremia secondary to hyperglycemia, mostly resolved by correcting his hyperglycemia 4 chronic renal failure on hemodialysis 5 bilateral pleural effusions secondary to fluid overload secondary to renal failure. May improve with hemodialysis, no plans to do thoracentesis at this point. Ultrasound of the chest was reviewed. 6 multiple comorbidities including diabetes with diabetic complications including renal failure and retinopathy, hyperlipidemia, chronic anemia, remote history of peptic ulcer disease, history of osteomyelitis secondary to MRSA and previous amputation/transmetatarsal amputation of the left foot. Recommendation: Agree with discharge planning today, will follow as needed. Time with Patient: Less than 30
--- NOTE | 2018-05-11 22:15 | DS ---
DISCHARGE SUMMARY DATE OF ADMISSION: 05/08/2018 DATE OF DISCHARGE: 05/10/2018 FINAL DIAGNOSES: 1. Acute nonketotic hypoglycemia. There was no diabetic ketoacidosis. 2. Diabetes mellitus type 2, chronically on insulin pump. 3. Pseudohyponatremia from hyperglycemia on presentation. 4. Hyperkalemia due to renal failure. 5. Peripheral neuropathy and diabetic retinopathy from diabetes. 6. Anemia secondary to chronic kidney disease. 7. End-stage kidney disease on hemodialysis Sunday, Sunday and Sunday. 8. Mineral bone disease due to chronic kidney disease. 9. Accelerated hypertension. HOSPITAL COURSE: This patient presented feeling weak, tired and sugars running close to 1000. The patient initially was put on an insulin drip. There was no evidence of infection. Blood pressure was running high. The patient sometimes is not compliant, it was informed. The patient did get some [id number] hemodialysis here. The patient is doing better by the time of discharge. PHYSICAL EXAMINATION: Temperature 98, pulse 70, blood pressure 137/87, pulse ox 96% on room air. LUNGS: Decreased breath sounds. CARDIOVASCULAR: First and second heart sounds normal. LABS: Potassium 4.7. Hemoglobin 10.7. CONSULTATIONS: Dr. Sarkar from Nephrology, Dr. Tarango from Critical Care. DISCHARGE MEDICATIONS: 1. Cymbalta 120 mg q.h.s. 2. Baltic 5 one tablet every 6 hours p.r.n. 3. Pravachol 40 mg q.h.s. 4. Coreg 25 mg p.o. b.i.d. 5. Abilify 10 mg p.o. q.h.s. 6. Prilosec 40 mg q.h.s. 7. Vitamin D2 50,000 units p.o. on Sunday. 8. PhosLo 667 mg p.o. t.i.d. 9. Hydralazine 100 mg p.o. t.i.d. 10.Cardizem ER 260 mg q.h.s. 11.NovoLog per scale. 12.Levemir 20 units subcu b.i.d. 13.Lasix 80 mg b.i.d., new medication. FOLLOWUP: With Dr. Trevino on 05/14/2018. The patient to maintain his hemodialysis schedule. MMODL / IJN: [id number] /
[2018-05-12] MEDS ORDERED: ERGOCALCIFEROL 50,000 UNIT CAP PO SCH ×2 (09:00)
== END 2018-05-10 13:17 | disposition left against medical advice (07) | DRG 637 ==
LOC: EC 22:54 → 6ICU 05-08 01:29
PROVIDERS: ADMIT Hospitalist; ATTEND Hospitalist
PROC: 5A1D70Z Performance of Urinary Filtration, Intermittent, Less than 6 Hours Per Day (ICD-10-PCS; principal; 2018-05-09)
DX: E10.65 Type 1 diabetes mellitus with hyperglycemia (principal); N18.6 End stage renal disease; E87.1 Hypo-osmolality and hyponatremia; J90 Pleural effusion, not elsewhere classified; I12.0 Hypertensive chronic kidney disease with stage 5 chronic kidney disease or end stage renal disease; D63.1 Anemia in chronic kidney disease; E10.22 Type 1 diabetes mellitus with diabetic chronic kidney disease; E10.319 Type 1 diabetes mellitus with unspecified diabetic retinopathy without macular edema; E10.51 Type 1 diabetes mellitus with diabetic peripheral angiopathy without gangrene; E78.5 Hyperlipidemia, unspecified; E87.5 Hyperkalemia; E87.70 Fluid overload, unspecified; H54.7 Unspecified visual loss; J45.909 Unspecified asthma, uncomplicated; K21.9 Gastro-esophageal reflux disease without esophagitis; F32.9 Major depressive disorder, single episode, unspecified; K44.9 Diaphragmatic hernia without obstruction or gangrene; E88.89 Other specified metabolic disorders; Z79.4 Long term (current) use of insulin; Z79.899 Other long term (current) drug therapy; Z99.2 Dependence on renal dialysis; Z98.2 Presence of cerebrospinal fluid drainage device; Z96.41 Presence of insulin pump (external) (internal); Z89.412 Acquired absence of left great toe; Z89.422 Acquired absence of other left toe(s); Z87.11 Personal history of peptic ulcer disease; Z86.14 Personal history of Methicillin resistant Staphylococcus aureus infection; Z88.8 Allergy status to other drugs, medicaments and biological substances; Z82.3 Family history of stroke; Z82.49 Family history of ischemic heart disease and other diseases of the circulatory system; Z83.3 Family history of diabetes mellitus
CPT/HCPCS: 36415; 71045; 76604; 80048; 80051; 80053; 82565; 82947; 83036; 83735; 83930; 84100; 84520; 85025; 85027; 86706; 87340; 90935; 93005; 96374; 96375; 96376; 99285

== ENCOUNTER 2018-11-13 22:01 | Observation (INO) | payer MEDICARE, OTHER ==
[2018-11-13] MEDS ORDERED: MORPHINE SULFATE 4 MG/ML SYRINGE IV PRN (22:32)
[2018-11-13] MEDS ORDERED: NALOXONE 0.4 MG/ML 1 ML VIAL IV PRN (22:32)
[2018-11-13] MEDS ORDERED: ONDANSETRON 4 MG/2 ML VIAL IVP PRN (22:32)
--- NOTE | 2018-11-13 22:36 | ED ---
Abdominal Pain HPI - General Chief Complaint: Abdominal Pain Stated Complaint: Abdominal Pain Time Seen by Provider: 11/13/18 22:05 Source: patient, old records reviewed Mode of arrival: EMS Limitations: no limitations - History of Present Illness Initial Comments: This patient is a 38-year-old man who is transferred here from [facility]. The patient had gone there to be evaluated for abdominal pain. He states that it had come on the sometime following his dialysis session today. He describes it as being present diffusely through the abdomen. The pain is been constant, severe, aching as well as cramping. He has not noted worsening factors. He did get a little bit of relief with the narcotic pain medicine given at the other facility. Patient also had a couple of episodes of dry heaves related to this. Denies change in bowel movements. Patient is for the most part and uric related to kidney failure. MD Complaint: abdominal pain Location: periumbilical Radiation: none Migration to: no migration Severity: severe Quality: cramping, aching Consistency: constant Improves With: nothing Worsens With: nothing Associated Symptoms: denies other symptoms - Related Data Home Medications Medication Instructions Recorded Confirmed DULoxetine HCL [Cymbalta] 120 mg PO HS 05/22/15 08/05/18 Pravastatin Sodium [Pravachol] 40 mg PO HS 12/26/15 08/05/18 ARIPiprazole [Abilify] 10 mg PO HS 09/07/16 08/05/18 Omeprazole [PriLOSEC] 40 mg PO HS 09/07/16 08/05/18 Calcium Acetate [PhosLo] 667 mg PO AC-TID 07/01/17 08/05/18 Diltiazem HCl [Diltiazem 24Hr ER] 360 mg PO HS 05/07/18 08/05/18 INSULIN ASPART (NovoLOG) [NovoLOG See Protocol SQ ACHS 05/07/18 08/05/18 (formulary)] Insulin Glargine,Hum.rec.anlog 44 units SQ HS 08/05/18 08/05/18 [[place] Solostvishal] Thera M Plus 1 tab PO HS 08/05/18 08/05/18 tiZANidine [Zanaflex] 2 mg PO Q8HR PRN 11/26/18 11/26/18 Eliquis (Unknown) 1 tab PO DAILY 11/13/18 11/13/18 Morphine Sulfate [Morphine Sulfate 15 mg PO Q12H 11/13/18 11/13/18 ER] Previous Rx's Medication Instructions Recorded Carvedilol [Coreg] 25 mg PO BID #60 tablet 12/29/15 hydrALAZINE HCL [Apresoline] 100 mg PO TID #90 tab 07/04/17 Allergies Allergy/AdvReac Type Severity Reaction Status Date / Time acetaminophen [From Tylenol] Allergy Unknown Verified 11/13/18 22:21 lisinopril Allergy Unknown Verified 11/13/18 22:21 atorvastatin calcium AdvReac Nausea & Verified 11/13/18 22:21 [From Lipitor] Vomiting losartan potassium AdvReac Nausea & Verified 11/13/18 22:21 [From Cozaar] Vomiting tramadol AdvReac drowsiness Verified 11/13/18 22:21 Review of Systems ROS Statement: Those systems with pertinent positive or pertinent negative responses have been documented in the HPI. ROS Other: All systems not noted in ROS Statement are negative. Constitutional: Denies: fever, chills, weakness Respiratory: Denies: cough, dyspnea Cardiovascular: Denies: chest pain, palpitations, syncope Gastrointestinal: Reports: abdominal pain. Denies: nausea, vomiting, diarrhea, constipation, melena, hematochezia Genitourinary: Denies: testicular pain, testicular mass Musculoskeletal: Denies: back pain Skin: Denies: rash Neurological: Denies: headache, weakness, numbness Past Medical History Past Medical History: Asthma, Diabetes Mellitus, Dialysis, Eye Disorder, GERD/Reflux, GI Bleed, Hyperlipidemia, Hypertension, Pneumonia, Renal Disease Additional Past Medical History / Comment(s): IDDM type I, diabetic since he was age 21, DKA, hiatal hernia, R eye retinal detachment with surgery-vision decreased, hemodialysis.The patient is seeing hemodialysis 3 times a week on Sunday, Sunday and Sunday since Oct 2014, and he has an AV fistula in his lower right arm. Other medical problems are chronic anemia, previous history of GI bleed secondary to peptic ulcer disease, volume overload, chronic kidney disease, peripheral vascular disease, osteomyelitis, diabetic foot ulcers and amputations History of Any Multi-Drug Resistant Organisms: MRSA Date of last positivie culture/infection: 12/20/11 MDRO Source:: Left Foot Past Surgical History: Ventriculoperitoneal Shunt Additional Past Surgical History / Comment(s): renal needle bx, 2009 left great toe amp and 2013 2nd to 5th left foot toes amputated. right chest mediport x2 with removal in 2010 and 2012. right eye retina reattachment sx 03/2015. EGD/colonoscopy. Past Anesthesia/Blood Transfusion Reactions: No Reported Reaction Past Psychological History: Depression Smoking Status: Never smoker Past Alcohol Use History: None Reported Past Drug Use History: None Reported - Past Family History Mother Family Medical History: Hypertension Father Family Medical History: CVA/TIA, Diabetes Mellitus, Hypertension Additional Family Medical History / Comment(s): Father is at the age of 53yrs from a CVA. General Exam Limitations: no limitations General appearance: alert, in no apparent distress Head exam: Present: atraumatic, normocephalic Eye exam: Present: normal appearance. Absent: scleral icterus, conjunctival injection ENT exam: Present: normal oropharynx Respiratory exam: Present: normal lung sounds bilaterally. Absent: respiratory distress, wheezes, rales, rhonchi, stridor Cardiovascular Exam: Present: regular rate, normal rhythm, normal heart sounds. Absent: systolic murmur, diastolic murmur, rubs, gallop GI/Abdominal exam: Present: soft, tenderness (There is mild diffuse tenderness without rebound or guarding), normal bowel sounds. Absent: distended, guarding, rebound, rigid, mass, pulsatile mass Extremities exam: Present: normal inspection, normal capillary refill. Absent: pedal edema, calf tenderness Back exam: Present: normal inspection. Absent: CVA tenderness (R), CVA tenderness (L) Neurological exam: Present: alert Skin exam: Present: warm, dry, intact, normal color. Absent: rash Course Vital Signs 11/13/18 22:13 Temperature 98.3 F Pulse Rate 93 Respiratory 18 Rate Blood Pressure 188/102 O2 Sat by Pulse 98 Oximetry Disposition Clinical Impression: Abdominal pain Disposition: ADMITTED IP TO THIS HOSP Condition: Fair Is patient prescribed a controlled substance at d/c from ED?: No Referrals: Chad Trevino MD [Primary Care Provider] - 1-2 days
[2018-11-13] MEDS ORDERED: HYDROmorphone 0.5 MG/0.5 ML SYRINGE IVP PRN (22:48)
[2018-11-13] MEDS ORDERED: METHADONE 10 MG TAB PO STA ×2 (22:54→23:45)
[2018-11-13] MEDS ORDERED: hydrALAZINE HCL 20 MG/ML 1 ML VIAL IVP STA (23:09)
[2018-11-13] MEDS ORDERED: DILTIAZEM HCL 360 MG PO SCH (23:30)
[2018-11-13] MEDS ORDERED: INSULIN DETEMIR (LEVEMIR) 100 UNIT/ML SYR SQ SCH (23:30)
[2018-11-13] MEDS ORDERED: DILTIAZEM CD 180 MG CAP.ER.24H PO SCH (23:40)
[2018-11-13 23:53] LABS: Glucose,Whole Blood 310 mg/dL (75-99)
[2018-11-14] MEDS: MORPHINE SULFATE ER 15 MG TABLET PO SCH ×3 (00:22→23:40)
[2018-11-14] MEDS: hydrALAZINE HCL 50 MG TAB PO SCH ×4 (00:22→20:38)
[2018-11-14] MEDS: ARIPiprazole 10 MG TAB PO SCH ×2 (00:22→20:37)
[2018-11-14 01:08] VITALS: BMI 27.6
[2018-11-14 07:31] LABS: Glucose,Whole Blood 201 mg/dL (75-99)
[2018-11-14] MEDS: CARVEDILOL 12.5 MG TAB PO SCH ×2 (07:37→16:56)
[2018-11-14] MEDS: CALCIUM ACETATE 667 MG CAP PO SCH ×3 (07:37→17:04)
[2018-11-14 07:55] LABS: Anisocytosis Slight; Basophils # (A) 0.1 k/uL (0-0.2); Basophils % (A) 1 %; Eosinophils # (A) 0.2 k/uL (0-0.7); Eosinophils % (A) 2 %; HCT 31.8 % (39.0-53.0); HGB 9.7 gm/dL (13.0-17.5); Hypochromasia Slight; Lymphocytes # (A) 1.5 k/uL (1.0-4.8); Lymphocytes % (A) 17 %; MCH 26.3 pg (25.0-35.0); MCHC 30.4 g/dL (31.0-37.0); MCV 86.6 fL (80.0-100.0); Mean Platelet Volume 8.2; Monocytes # (A) 0.6 k/uL (0-1.0); Monocytes % (A) 6 %; Neutrophils # (A) 6.8 k/uL (1.3-7.7); Neutrophils % (A) 74 %; Platelet Count 239 k/uL (150-450); RBC 3.67 m/uL (4.30-5.90); RDW 17.7 % (11.5-15.5); WBC 9.2 k/uL (3.8-10.6)
[2018-11-14 08:03] LABS: ALT 20 U/L (21-72); AST 14 U/L (17-59); Albumin 3.5 g/dL (3.5-5.0); Alkaline Phosphatase 133 U/L (38-126); Amylase <30 U/L (30-110); Anion Gap 9 mmol/L; Blood Urea Nitrogen 25 mg/dL (9-20); Carbon Dioxide 33 mmol/L (22-30); Chloride 94 mmol/L (98-107); Glucose 165 mg/dL (74-99); Lipase 19 U/L (23-300); Sodium 136 mmol/L (137-145); Total Bilirubin 0.7 mg/dL (0.2-1.3); Total Protein 6.1 g/dL (6.3-8.2)
[2018-11-14] MEDS ORDERED: FAMOTIDINE 20 MG TAB PO SCH (09:00)
[2018-11-14 11:05] LABS: Glucose,Whole Blood 43 mg/dL (75-99)
[2018-11-14 11:26] LABS: Glucose,Whole Blood 135 mg/dL (75-99)
[2018-11-14] MEDS: amLODIPine 10 MG TAB PO SCH (11:33)
[2018-11-14] MEDS ORDERED: DEXTROSE 50%-WATER 50 ML SYRINGE IVP ONE (11:42)
[2018-11-14 11:44] LABS: Glucose,Whole Blood 35 mg/dL (75-99)
[2018-11-14 11:44] LABS: Glucose,Whole Blood 31 mg/dL (75-99)
[2018-11-14] MEDS ORDERED: DEXTROSE 50%-WATER 50 ML SYRINGE IVP STA (11:47)
--- NOTE | 2018-11-14 11:47 | P.GSCN ---
<Candy Ying - Last Filed: 11/14/18 11:38> History of Present Illness Consult date: 11/14/18 Reason for Consult: Abdominal pain Requesting physician: Tyrel Ceballos History of present illness: CHIEF COMPLAINT: Abdominal pain HISTORY OF PRESENT ILLNESS: 38-year-old male who was transferred from [facility] secondary to abdominal pain. General surgery was consulted for further evaluation. Patient reports he had hemodialysis yesterday, which was uneventful. After dialysis, he went to hinduism and then went home. He reports about an hour later having abdominal pain near the umbilicus. He reported nausea and dry heaves yesterday, which have resolved. Last BM was Sunday night. Patient reports that is his normal bowel pattern and does not feel constipated. PAST MEDICAL HISTORY: See list. PAST SURGICAL HISTORY: See list. MEDICATIONS: See list. ALLERGIES: See list. SOCIAL HISTORY: No illicit drug use. REVIEW OF SYSTEMS: CONSTITUTIONAL: Denies fever or chills. HEENT: Denies blurred vision, vision changes, or eye pain. Denies hemoptysis ENDOCRINE: Denies heat or cold intolerance. CARDIOVASCULAR: Denies chest pain or pressure. RESPIRATORY: No shortness of breath. GASTROINTESTINAL: Reports abdominal pain, nausea, and dry heaves yesterday which have all resolved NEURO: Denies history of seizures. PSYCH: No depression or suicidal ideation HEMATOLOGIC: Denies bleeding disorders. LYMPHATIC: The patient denies any lumps and bumps around the neck. GENITOURINARY: Denies any blood in urine or increased urinary frequency. MUSCULOSKELETAL: Denies myalgias. Denies joint swelling. Denies decreased range of motion beyond patients baseline. SKIN: Denies pruitis. Denies rash. PHYSICAL EXAM: VITAL SIGNS: Currently stable. GENERAL: Well-developed in no acute distress. Sleepy. HEENT: No sclera icterus. Extraocular movements grossly intact. Moist buccal mucosa. Head is atraumatic, normocephalic. Hears conversational speech. No nasal drainage. NECK: Supple without lymphadenopathy. CHEST: Non-labored respirations and equal bilateral excursions. CARDIOVASCULAR: Regular rate with regular rhythm. Palpable 2+ radial pulses. ABDOMEN: Soft. Nondistended. No tenderness noted upon palpation. MUSCULOSKELETAL: No clubbing, cyanosis or edema. NEUROLOGIC: No focal or lateralizing signs. Cranial nerves II through XII grossly intact. PSYCH: Appropriate affect. Alert and oriented to person, place and time. SKIN: Well perfused. Good skin turgor. IMAGING: CT abdomen and pelvis without contrast completed at [facility]: Moderate bilateral pleural effusions with basilar pulmonary consolidation and atelectasis. Cardiomegaly. No inguinal hernia. No free fluid in the pelvis. Retained fecal material in the large bowel down to the rectum measures 6.6 cm. No sign of free air. Small umbilical hernia that contains fat. ASSESSMENT: 1. Isolated episode of abdominal pain and nausea, since resolved, etiology unclear, may be secondary to dialysis treatment 2. Mild constipation, likely worsened by narcotic use PLAN: Patient is feeling well this morning without GI symptoms. He may begin clear liquid diet and advance as tolerated. Colace and miralax. Minimize narcotic use. Patient is stable from a surgical perspective. Nurse practitioner note has been reviewed by physician. Signing provider agrees with the documented findings, assessment, and plan of care. Past Medical History Past Medical History: Asthma, Diabetes Mellitus, Dialysis, Eye Disorder, GERD/Reflux, GI Bleed, Hyperlipidemia, Hypertension, Pneumonia, Renal Disease Additional Past Medical History / Comment(s): IDDM type I, diabetic since he was age 21, DKA, hiatal hernia, R eye retinal detachment with surgery-vision decreased, hemodialysis.The patient is seeing hemodialysis 3 times a week on Sunday, Sunday and Sunday since Oct 2014, and he has an AV fistula in his lower right arm. Other medical problems are chronic anemia, previous history of GI bleed secondary to peptic ulcer disease, volume overload, chronic kidney disease, peripheral vascular disease, osteomyelitis, diabetic foot ulcers and amputations History of Any Multi-Drug Resistant Organisms: MRSA Year Discovered:: 12/20/11 MDRO Source:: Left Foot Past Surgical History: Ventriculoperitoneal Shunt Additional Past Surgical History / Comment(s): renal needle bx, 2008 left great toe amp and 2013 2nd to 5th left foot toes amputated. right chest mediport x2 wi th removal in 2010 and 2012. right eye retina reattachment sx 03/2015. EGD/colonoscopy. Past Anesthesia/Blood Transfusion Reactions: No Reported Reaction Past Psychological History: Depression Additional Psychological History / Comment(s): Pt resides with his mother. He uses a cane at times. He drives. Smoking Status: Never smoker Past Alcohol Use History: None Reported Additional Past Alcohol Use History / Comment(s): Patient states he is a lif elong nonsmoker. He denies any medical marijuana, marijuana, street drug use. He states he drinks alcohol on a rare basis. He also sates he chews tobacco either daily or every other day Past Drug Use History: None Reported - Past Family History Mother Family Medical History: Hypertension Father Family Medical History: CVA/TIA, Diabetes Mellitus, Hypertension Additional Family Medical History / Comment(s): Father is at the age of 53yrs from a CVA. Medications and Allergies Home Medications Medication Instructions Recorded Confirmed Type DULoxetine HCL [Cymbalta] 120 mg PO HS 05/22/15 11/14/18 History Pravastatin Sodium [Pravachol] 40 mg PO HS 12/26/15 11/14/18 History ARIPiprazole [Abilify] 10 mg PO HS 09/07/16 11/14/18 History Omeprazole [PriLOSEC] 40 mg PO HS 09/07/16 11/14/18 History hydrALAZINE HCL [Apresoline] 100 mg PO TID #90 tab 07/04/17 11/14/18 Rx Insulin Glargine,Hum.rec.anlog 44 units SQ HS 08/05/18 11/14/18 History [Toujeo Solostar] Thera M Plus 1 tab PO HS 08/05/18 11/14/18 History tiZANidine [Zanaflex] 2 mg PO Q8HR PRN 08/05/18 11/14/18 History Morphine Sulfate [Morphine Sulfate 15 mg PO Q12H 11/13/18 11/14/18 History ER] Acetaminophen [Tylenol Extra 1 - 2 tab PO Q4-6H 11/14/18 11/14/18 History Strength] Apixaban [Eliquis] 5 mg PO BID 11/14/18 11/14/18 History Carvedilol [Coreg] 6.25 mg PO BID 11/14/18 11/14/18 History amLODIPine [Norvasc] 10 mg PO DAILY 11/14/18 11/14/18 History Allergies Allergy/AdvReac Type Severity Reaction Status Date / Time acetaminophen [From Tylenol] Allergy Unknown Verified 11/13/18 22:21 lisinopril Allergy Unknown Verified 11/13/18 22:21 atorvastatin calcium AdvReac Nausea & Verified 11/13/18 22:21 [From Lipitor] Vomiting losartan potassium AdvReac Nausea & Verified 11/13/18 22:21 [From Cozaar] Vomiting tramadol AdvReac drowsiness Verified 11/13/18 22:21 Surgical - Exam Vital Signs Temp Pulse Resp BP Pulse Ox 98.3 F 93 18 188/102 98 11/13/18 22:13 11/13/18 22:13 11/13/18 22:13 11/13/18 22:13 11/13/18 22:13 Results - Labs 11/14/18 07:33 11/14/18 07:33 Abnormal Lab Results - Last 24 Hours (Table) 11/13/18 11/14/18 11/14/18 Range/Units 23:52 06:49 07:33 RBC 3.67 L (4.30-5.90) m/uL Hgb 9.7 L (13.0-17.5) gm/dL Hct 31.8 L (39.0-53.0) % MCHC 30.4 L (31.0-37.0) g/dL RDW 17.7 H (11.5-15.5) % Sodium (137-145) mmol/L Chloride (98-107) mmol/L Carbon Dioxide (22-30) mmol/L BUN (9-20) mg/dL Creatinine (0.66-1.25) mg/dL Glucose (74-99) mg/dL POC Glucose (mg/dL) 310 H 201 H (75-99) mg/dL AST (17-59) U/L ALT (21-72) U/L Alkaline Phosphatase (38-126) U/L Total Protein (6.3-8.2) g/dL Amylase (30-110) U/L Lipase (23-300) U/L 11/14/18 11/14/18 11/14/18 Range/Units 07:33 11:03 11:20 RBC (4.30-5.90) m/uL Hgb (13.0-17.5) gm/dL Hct (39.0-53.0) % MCHC (31.0-37.0) g/dL RDW (11.5-15.5) % Sodium 136 L (137-145) mmol/L Chloride 94 L (98-107) mmol/L Carbon Dioxide 33 H (22-30) mmol/L BUN 25 H (9-20) mg/dL Creatinine 4.56 H (0.66-1.25) mg/dL Glucose 165 H (74-99) mg/dL POC Glucose (mg/dL) 43 L 135 H (75-99) mg/dL AST 14 L (17-59) U/L ALT 20 L (21-72) U/L Alkaline Phosphatase 133 H (38-126) U/L Total Protein 6.1 L (6.3-8.2) g/dL Amylase <30 L (30-110) U/L Lipase 19 L (23-300) U/L Diabetes panel 11/14/18 Range/Units 07:33 Sodium 136 L (137-145) mmol/L Potassium 4.0 (3.5-5.1) mmol/L Chloride 94 L (98-107) mmol/L Carbon Dioxide 33 H (22-30) mmol/L BUN 25 H (9-20) mg/dL Creatinine 4.56 H (0.66-1.25) mg/dL Glucose 165 H (74-99) mg/dL Calcium 9.0 (8.4-10.2) mg/dL AST 14 L (17-59) U/L ALT 20 L (21-72) U/L Alkaline Phosphatase 133 H (38-126) U/L Total Protein 6.1 L (6.3-8.2) g/dL Albumin 3.5 (3.5-5.0) g/dL Calcium panel 11/14/18 Range/Units 07:33 Calcium 9.0 (8.4-10.2) mg/dL Albumin 3.5 (3.5-5.0) g/dL Pituitary panel 11/14/18 Range/Units 07:33 Sodium 136 L (137-145) mmol/L Potassium 4.0 (3.5-5.1) mmol/L Chloride 94 L (98-107) mmol/L Carbon Dioxide 33 H (22-30) mmol/L BUN 25 H (9-20) mg/dL Creatinine 4.56 H (0.66-1.25) mg/dL Glucose 165 H (74-99) mg/dL Calcium 9.0 (8.4-10.2) mg/dL Adrenal panel 11/14/18 Range/Units 07:33 Sodium 136 L (137-145) mmol/L Potassium 4.0 (3.5-5.1) mmol/L Chloride 94 L (98-107) mmol/L Carbon Dioxide 33 H (22-30) mmol/L BUN 25 H (9-20) mg/dL Creatinine 4.56 H (0.66-1.25) mg/dL Glucose 165 H (74-99) mg/dL Calcium 9.0 (8.4-10.2) mg/dL Total Bilirubin 0.7 (0.2-1.3) mg/dL AST 14 L (17-59) U/L ALT 20 L (21-72) U/L Alkaline Phosphatase 133 H (38-126) U/L Total Protein 6.1 L (6.3-8.2) g/dL Albumin 3.5 (3.5-5.0) g/dL <Kj Gilliland - Last Filed: 11/14/18 17:40> History of Present Illness History of present illness: As above. Patient had abdominal pain involving the epigastric region. That resolved earlier today. He was having some nausea. Patient with recent CAT scan that was fairly normal. Abdomen remains nontender at this time. Gradually increase diet. Will follow. If symptoms recur consider upper endoscopy. Surgical - Exam Vital Signs Temp Pulse Resp BP Pulse Ox 98.3 F 93 18 188/102 98 11/13/18 22:13 11/13/18 22:13 11/13/18 22:13 11/13/18 22:13 11/13/18 22:13 Results - Labs 11/14/18 07:33 11/14/18 07:33 Abnormal Lab Results - Last 24 Hours (Table) 11/13/18 11/14/18 11/14/18 Range/Units 23:52 06:49 07:33 RBC 3.67 L (4.30-5.90) m/uL Hgb 9.7 L (13.0-17.5) gm/dL Hct 31.8 L (39.0-53.0) % MCHC 30.4 L (31.0-37.0) g/dL RDW 17.7 H (11.5-15.5) % Sodium (137-145) mmol/L Chloride (98-107) mmol/L Carbon Dioxide (22-30) mmol/L BUN (9-20) mg/dL Creatinine (0.66-1.25) mg/dL Glucose (74-99) mg/dL POC Glucose (mg/dL) 310 H 201 H (75-99) mg/dL AST (17-59) U/L ALT (21-72) U/L Alkaline Phosphatase (38-126) U/L Total Protein (6.3-8.2) g/dL Amylase (30-110) U/L Lipase (23-300) U/L 11/14/18 11/14/18 11/14/18 Range/Units 07:33 11:03 11:20 RBC (4.30-5.90) m/uL Hgb (13.0-17.5) gm/dL Hct (39.0-53.0) % MCHC (31.0-37.0) g/dL RDW (11.5-15.5) % Sodium 136 L (137-145) mmol/L Chloride 94 L (98-107) mmol/L Carbon Dioxide 33 H (22-30) mmol/L BUN 25 H (9-20) mg/dL Creatinine 4.56 H (0.66-1.25) mg/dL Glucose 165 H (74-99) mg/dL POC Glucose (mg/dL) 43 L 135 H (75-99) mg/dL AST 14 L (17-59) U/L ALT 20 L (21-72) U/L Alkaline Phosphatase 133 H (38-126) U/L Total Protein 6.1 L (6.3-8.2) g/dL Amylase <30 L (30-110) U/L Lipase 19 L (23-300) U/L 11/14/18 11/14/18 11/14/18 Range/Units 11:36 11:42 11:56 RBC (4.30-5.90) m/uL Hgb (13.0-17.5) gm/dL Hct (39.0-53.0) % MCHC (31.0-37.0) g/dL RDW (11.5-15.5) % Sodium (137-145) mmol/L Chloride (98-107) mmol/L Carbon Dioxide (22-30) mmol/L BUN (9-20) mg/dL Creatinine (0.66-1.25) mg/dL Glucose (74-99) mg/dL POC Glucose (mg/dL) 35 L 31 L 105 H (75-99) mg/dL AST (17-59) U/L ALT (21-72) U/L Alkaline Phosphatase (38-126) U/L Total Protein (6.3-8.2) g/dL Amylase (30-110) U/L Lipase (23-300) U/L 11/14/18 11/14/18 11/14/18 Range/Units 12:09 12:57 14:15 RBC (4.30-5.90) m/uL Hgb (13.0-17.5) gm/dL Hct (39.0-53.0) % MCHC (31.0-37.0) g/dL RDW (11.5-15.5) % Sodium (137-145) mmol/L Chloride (98-107) mmol/L Carbon Dioxide (22-30) mmol/L BUN (9-20) mg/dL Creatinine (0.66-1.25) mg/dL Glucose (74-99) mg/dL POC Glucose (mg/dL) 119 H 174 H 156 H (75-99) mg/dL AST (17-59) U/L ALT (21-72) U/L Alkaline Phosphatase (38-126) U/L Total Protein (6.3-8.2) g/dL Amylase (30-110) U/L Lipase (23-300) U/L 11/14/18 Range/Units 16:53 RBC (4.30-5.90) m/uL Hgb (13.0-17.5) gm/dL Hct (39.0-53.0) % MCHC (31.0-37.0) g/dL RDW (11.5-15.5) % Sodium (137-145) mmol/L Chloride (98-107) mmol/L Carbon Dioxide (22-30) mmol/L BUN (9-20) mg/dL Creatinine (0.66-1.25) mg/dL Glucose (74-99) mg/dL POC Glucose (mg/dL) 232 H (75-99) mg/dL AST (17-59) U/L ALT (21-72) U/L Alkaline Phosphatase (38-126) U/L Total Protein (6.3-8.2) g/dL Amylase (30-110) U/L Lipase (23-300) U/L Diabetes panel 11/14/18 Range/Units 07:33 Sodium 136 L (137-145) mmol/L Potassium 4.0 (3.5-5.1) mmol/L Chloride 94 L (98-107) mmol/L Carbon Dioxide 33 H (22-30) mmol/L BUN 25 H (9-20) mg/dL Creatinine 4.56 H (0.66-1.25) mg/dL Glucose 165 H (74-99) mg/dL Calcium 9.0 (8.4-10.2) mg/dL AST 14 L (17-59) U/L ALT 20 L (21-72) U/L Alkaline Phosphatase 133 H (38-126) U/L Total Protein 6.1 L (6.3-8.2) g/dL Albumin 3.5 (3.5-5.0) g/dL Calcium panel 11/14/18 Range/Units 07:33 Calcium 9.0 (8.4-10.2) mg/dL Albumin 3.5 (3.5-5.0) g/dL Pituitary panel 11/14/18 Range/Units 07:33 Sodium 136 L (137-145) mmol/L Potassium 4.0 (3.5-5.1) mmol/L Chloride 94 L (98-107) mmol/L Carbon Dioxide 33 H (22-30) mmol/L BUN 25 H (9-20) mg/dL Creatinine 4.56 H (0.66-1.25) mg/dL Glucose 165 H (74-99) mg/dL Calcium 9.0 (8.4-10.2) mg/dL Adrenal panel 11/14/18 Range/Units 07:33 Sodium 136 L (137-145) mmol/L Potassium 4.0 (3.5-5.1) mmol/L Chloride 94 L (98-107) mmol/L Carbon Dioxide 33 H (22-30) mmol/L BUN 25 H (9-20) mg/dL Creatinine 4.56 H (0.66-1.25) mg/dL Glucose 165 H (74-99) mg/dL Calcium 9.0 (8.4-10.2) mg/dL Total Bilirubin 0.7 (0.2-1.3) mg/dL AST 14 L (17-59) U/L ALT 20 L (21-72) U/L Alkaline Phosphatase 133 H (38-126) U/L Total Protein 6.1 L (6.3-8.2) g/dL Albumin 3.5 (3.5-5.0) g/dL
[2018-11-14 11:56] LABS: Glucose,Whole Blood 94 mg/dL (75-99)
[2018-11-14] MEDS: POLYETHYLENE GLYCOL 3350 17 GM POWD.PACK PO SCH (12:17)
[2018-11-14 12:22] LABS: Glucose,Whole Blood 119 mg/dL (75-99)
[2018-11-14 12:22] LABS: Glucose,Whole Blood 105 mg/dL (75-99)
[2018-11-14 12:59] LABS: Glucose,Whole Blood 174 mg/dL (75-99)
[2018-11-14 14:19] LABS: Glucose,Whole Blood 156 mg/dL (75-99)
[2018-11-14] MEDS ORDERED: SODIUM CHLORIDE 0.9% 500 ML 250 ML IV ONE (15:27)
[2018-11-14 16:57] LABS: Glucose,Whole Blood 232 mg/dL (75-99)
--- NOTE | 2018-11-14 18:38 | HP ---
HISTORY AND PHYSICAL DATE OF ADMISSION: 11/13/2018 DATE OF SERVICE: PRESENTING COMPLAINT: Abdominal pain. HISTORY OF PRESENTING COMPLAINT: This is a 38-year-old patient who follows with Dr. Trevino. His chronic stable medical conditions include end-stage kidney disease, on hemodialysis Sunday, Sunday, Sunday, hyperlipidemia, peripheral neuropathy, diabetic nephropathy, mineral bone disease, peripheral artery disease. Patient started off with upper middle abdominal pain since yesterday. He had some nausea. No fever. No chills. Bowel pattern did not change. Hence he was sent down here. Earlier today the patient's pain settled down, and the patient is having no further pain. No fever. No chills. REVIEW OF SYSTEMS: CONSTITUTIONAL: Tired. HEENT: Decreased vision in the right eye. RESPIRATORY: None. CARDIOVASCULAR: None. GASTROINTESTINAL: As above. GENITOURINARY: He makes little urine. DERMATOLOGICAL: None. HEMATOLOGICAL: None. LYMPHATICS: None. PSYCHIATRY: None. NEUROLOGICAL: Peripheral neuropathy. PAST MEDICAL HISTORY: 1. Diabetes. 2. Anemia. 3. Hyperlipidemia. 4. Hypertension. 5. Peripheral neuropathy. 6. End-stage kidney disease. 7. Peptic ulcer disease. 8. Hiatal hernia. 9. Diabetic retinopathy. 10.Mineral bone disease. 11.Peripheral artery disease. 12.GI bleed. 13.Osteomyelitis. 14.Septic foot ulcers. 15.Chronic wound on the right foot. PAST SURGICAL HISTORY: 1. Hiatal hernia. 2. Right eye retinal detachment surgery. 3. Diabetic foot ulcers with amputation of left great toe. 4. Right chest MediPort x2. SOCIAL HISTORY: Lives with his mother. Does not drive. No smoking. Alcohol rarely. FAMILY HISTORY: Father from a stroke at age 53. HOME MEDICATIONS: 1. Zanaflex 2 mg q.8 p.r.n. 2. Hydralazine 100 mg p.o. t.i.d. 3. Norvasc 10 mg p.o. daily. 4. Thera M Plus 1 tablet p.o. at bedtime. 5. Pravachol 40 mg at bedtime. 6. Prilosec 40 mg at bedtime. 7. Morphine sulfate 15 mg p.o. q.12. 8. Insulin Lantus 44 units subcutaneously at bedtime. 9. Cymbalta 120 mg at bedtime. 10.Coreg 6.25 b.i.d. 11.Eliquis 5 mg b.i.d. 12.Tylenol 1-2 tablets q.4 p.r.n. 13.Abilify 10 mg at bedtime. ALLERGIES: 1. TYLENOL. 2. LISINOPRIL. 3. ATORVASTATIN. 4. LOSARTAN. 5. ULTRAM. PHYSICAL EXAMINATION: VITAL SIGNS ON PRESENTATION: Temperature 97.9, pulse 99, respiration 16, blood pressure 207/95, pulse ox 92% on room air. GENERAL APPEARANCE: Average build. Lying in bed, awake. EYES: Pupils equal. Conjunctivae normal. HEENT: External appearance of nose and ears normal. Oral cavity normal. NECK: JVD not raised. Mass not palpable. RESPIRATORY: Effort normal. LUNGS: Fair air entry. CARDIOVASCULAR: First and second sounds normal. No edema. ABDOMEN: Soft, non-tender. Liver and spleen not palpable. LYMPHATIC: No lymph node palpable in neck or axillae. PSYCHIATRY: Alert and oriented x3. Mood and affect normal. NEUROLOGICAL: Pupils equal. Cranial nerves grossly intact. INVESTIGATIONS: White count 9.2, hemoglobin 9.7, potassium 4.0, BUN 25, creatinine 4.56. Accu-Cheks: sugar was down to 43 this morning. ASSESSMENT: 1. Abdominal pain. Could be gastritis. There was no fever. No chills. It improved spontaneously. 2. Diabetes mellitus, type 2, chronically on insulin. 3. Peripheral neuropathy and diabetic retinopathy from diabetes. 4. Anemia secondary to chronic kidney disease. 5. End-stage kidney disease, on hemodialysis Sunday, Sunday and Sunday. 6. Mineral bone disease due to chronic kidney disease. 7. Essential hypertension with kidney disease. 8. Diabetes mellitus, type 2, chronically on insulin, uncontrolled with hypoglycemia. PLAN: Will cut back on the patient's dose of insulin. Patient was on a clear liquid diet. Diet will be advanced as tolerated. Surgery was consulted. Patient in the afternoon did drop her blood pressure. It is unclear, given the abdominal pain. Will repeat CT scan of the abdomen without contrast. Though highly unlikely, want to rule out a bleed. MMODL / IJN: [id number] /
--- NOTE | 2018-11-14 18:39 | CT ---
EXAMINATION TYPE: CT abdomen pelvis wo con DATE OF EXAM: 11/14/2018 COMPARISON: Yesterday HISTORY: Generalized pain with nausea CT DLP: 704.5 mGycm Automated exposure control for dose reduction was used. TECHNIQUE: Helical acquisition of images was performed from the lung bases through the pelvis. FINDINGS: There are moderate-sized bilateral pleural effusions. Heart is enlarged. There is basilar pulmonary i nfiltrate and atelectasis. Liver shows no focal defect. Spleen appears normal. There is no pancreatic mass. Gallbladder appears normal. Bile ducts are not dilated. There is no adrenal mass. Kidneys show no hydronephrosis. Ureters are not dilated. There is small maverick unt of free fluid in the pelvis. I see no intestinal wall thickening. There are no dilated loops. The re is small umbilical hernia. There is no sign of a bowel obstruction. There is no free air. There is no mesenteric edema. There is no inguinal hernia. IMPRESSION: CARDIOMEGALY WITH PLEURAL EFFUSIONS AND BASILAR PULMONARY INFILTRATES AND ATELECTASIS. THIS COULD REL ATE TO CONGESTIVE HEART FAILURE. NO CHANGE COMPARED TO YESTERDAY. NO ACUTE ABNORMALITY SEEN WITHIN TH E ABDOMEN AND PELVIS.
[2018-11-14 20:22] LABS: Glucose,Whole Blood 210 mg/dL (75-99)
[2018-11-14] MEDS: DOCUSATE 100 MG CAP PO SCH (20:37)
[2018-11-14] MEDS ORDERED: DULoxetine HCL 60 MG CAPSULE.DR PO SCH (21:00)
[2018-11-14] MEDS ORDERED: INSULIN DETEMIR (LEVEMIR) 100 UNIT/ML SYR SQ SCH (21:00)
[2018-11-14] MEDS ORDERED: PRAVASTATIN SODIUM 40 MG TAB PO SCH (21:00)
[2018-11-14] MEDS ORDERED: PANTOPRAZOLE 40 MG TABLET PO SCH (21:00)
[2018-11-15 02:24] LABS: Glucose,Whole Blood 112 mg/dL (75-99)
[2018-11-15 04:30] LABS: Glucose,Whole Blood 43 mg/dL (75-99)
[2018-11-15 04:47] LABS: Glucose,Whole Blood 36 mg/dL (75-99)
[2018-11-15] MEDS ORDERED: DEXTROSE 50%-WATER 50 ML SYRINGE IVP STA (04:53)
[2018-11-15 05:06] LABS: Glucose,Whole Blood 31 mg/dL (75-99)
[2018-11-15 05:22] LABS: Glucose,Whole Blood 101 mg/dL (75-99)
[2018-11-15 07:01] LABS: Glucose,Whole Blood 99 mg/dL (75-99)
[2018-11-15 07:24] VITALS: RESP 16
[2018-11-15] MEDS: CARVEDILOL 12.5 MG TAB PO SCH ×2 (07:46→07:50)
[2018-11-15] MEDS: CALCIUM ACETATE 667 MG CAP PO SCH ×2 (07:46→11:53)
[2018-11-15] MEDS: DOCUSATE 100 MG CAP PO SCH (07:46)
[2018-11-15] MEDS: POLYETHYLENE GLYCOL 3350 17 GM POWD.PACK PO SCH (07:47)
[2018-11-15] MEDS: hydrALAZINE HCL 50 MG TAB PO SCH ×2 (07:47→07:50)
[2018-11-15] MEDS: amLODIPine 10 MG TAB PO SCH ×2 (07:47→07:51)
--- NOTE | 2018-11-15 10:43 | P.PN ---
<Candy Ying - Last Filed: 11/15/18 10:41> Subjective Progress Note Date: 11/15/18 CHIEF COMPLAINT: Abdominal pain HISTORY OF PRESENT ILLNESS: Patient examined at the bedside this morning. Patient states he is feeling well. No further episodes of abdominal pain or nausea. Patient believes abdominal pain may have been caused by dialysis treatment. Vital signs are stable. He is afebrile. PHYSICAL EXAM: VITAL SIGNS: Currently stable. GENERAL: Well-developed in no acute distress. HEENT: No sclera icterus. Extraocular movements grossly intact. Moist buccal mucosa. Head is atraumatic, normocephalic. Hears conversational speech. No nasal dr ainage. NECK: Supple without lymphadenopathy. CHEST: Non-labored respirations and equal bilateral excursions. CARDIOVASCULAR: Regular rate with regular rhythm. Palpable 2+ radial pulses. ABDOMEN: Soft. Nondistended. No tenderness noted upon palpation. MUSCULOSKELETAL: No clubbing, cyanosis or edema. NEUROLOGIC: No focal or lateralizing signs. Cranial nerves II through XII grossly intact. PSYCH: Appropriate affect. Alert and oriented to person, place and time. SKIN: Well perfused. Good skin turgor. ASSESSMENT: 1. Isolated episode of abdominal pain and nausea, since resolved, etiology unclear, may be secondary to dialysis treatment 2. Mild constipation, likely worsened by narcotic use PLAN: Continue renal diet. Patient is stable from a surgical perspective. We will sign off. Please reconsult if needed. Nurse practitioner note has been reviewed by physician. Signing provider agrees with the documented findings, assessment, and plan of care. Objective - Vital Signs Vital signs: Vital Signs Temp 97.5 F L 11/15/18 07:00 Pulse 72 11/15/18 07:00 Resp 16 11/15/18 07:00 BP 121/65 11/15/18 07:00 Pulse Ox 94 L 11/15/18 07:00 Intake & Output 11/14/18 11/15/18 11/15/18 18:59 06:59 18:59 Intake Total 718 900 300 Balance 718 900 300 Intake: Oral 718 900 300 - Labs CBC & Chem 7: 11/14/18 07:33 11/15/18 05:35 Labs: Abnormal Lab Results - Last 24 Hours (Table) 11/14/18 11/14/18 11/14/18 Range/Units 11:03 11:20 11:36 Glucose (74-99) mg/dL POC Glucose (mg/dL) 43 L 135 H 35 L (75-99) mg/dL 11/14/18 11/14/18 11/14/18 Range/Units 11:42 11:56 12:09 Glucose (74-99) mg/dL POC Glucose (mg/dL) 31 L 105 H 119 H (75-99) mg/dL 11/14/18 11/14/18 11/14/18 Range/Units 12:57 14:15 16:53 Glucose (74-99) mg/dL POC Glucose (mg/dL) 174 H 156 H 232 H (75-99) mg/dL 11/14/18 11/15/18 11/15/18 Range/Units 20:11 02:13 04:18 Glucose (74-99) mg/dL POC Glucose (mg/dL) 210 H 112 H 43 L (75-99) mg/dL 11/15/18 11/15/18 11/15/18 Range/Units 04:34 04:51 05:08 Glucose (74-99) mg/dL POC Glucose (mg/dL) 36 L 31 L 101 H (75-99) mg/dL 11/15/18 Range/Units 05:35 Glucose 120 H (74-99) mg/dL POC Glucose (mg/dL) (75-99) mg/dL <Kj Gilliland - Last Filed: 11/15/18 11:33> Subjective As above. Patient doing well. No further pain. Tolerating diet. We'll sign off. Please call if needed. Objective - Vital Signs Vital signs: Vital Signs Temp 97.5 F L 11/15/18 07:00 Pulse 72 11/15/18 07:00 Resp 16 11/15/18 07:00 BP 121/65 11/15/18 07:00 Pulse Ox 94 L 11/15/18 07:00 Intake & Output 11/14/18 11/15/18 11/15/18 18:59 06:59 18:59 Intake Total 718 900 300 Balance 718 900 300 Intake: Oral 718 900 300 - Labs CBC & Chem 7: 11/14/18 07:33 11/15/18 05:35 Labs: Abnormal Lab Results - Last 24 Hours (Table) 11/14/18 11/14/18 11/14/18 Range/Units 11:36 11:42 11:56 Glucose (74-99) mg/dL POC Glucose (mg/dL) 35 L 31 L 105 H (75-99) mg/dL 11/14/18 11/14/18 11/14/18 Range/Units 12:09 12:57 14:15 Glucose (74-99) mg/dL POC Glucose (mg/dL) 119 H 174 H 156 H (75-99) mg/dL 11/14/18 11/14/18 11/15/18 Range/Units 16:53 20:11 02:13 Glucose (74-99) mg/dL POC Glucose (mg/dL) 232 H 210 H 112 H (75-99) mg/dL 11/15/18 11/15/18 11/15/18 Range/Units 04:18 04:34 04:51 Glucose (74-99) mg/dL POC Glucose (mg/dL) 43 L 36 L 31 L (75-99) mg/dL 11/15/18 11/15/18 Range/Units 05:08 05:35 Glucose 120 H (74-99) mg/dL POC Glucose (mg/dL) 101 H (75-99) mg/dL
[2018-11-15] MEDS: MORPHINE SULFATE ER 15 MG TABLET PO SCH (11:51)
[2018-11-15 12:00] LABS: Glucose,Whole Blood 152 mg/dL (75-99)
[2018-11-15 14:50] VITALS: BP 158/79; PULSE 96; TEMP 99
--- NOTE | 2018-11-15 23:33 | CONS ---
CONSULTATION REASON FOR CONSULT: End-stage renal disease. HISTORY OF PRESENT ILLNESS: The patient is a 38-year-old male with end-stage renal disease, on hemodialysis on a Sunday, Sunday, Sunday schedule. The patient was admitted to the hospital with complaints of abdominal pain. He denied any fever or chills. There was no diarrhea, chest pains or shortness of breath. The patient had a CT of the abdomen and pelvis which was nonspecific with no major abnormal findings except for full suggestion of pulmonary vascular congestion. At this time patient states his abdominal pain has improved. Normally patient is significantly volume overloaded, however, recently it appears that recently he has reached his estimated dry weight. PAST MEDICAL HISTORY: End-stage renal disease, CHF systolic, CKD, mineral bone disorder, type 2 diabetes, diabetic retinopathy, diabetic neuropathy, retinal detachment, anemia of chronic disease, GI bleed, peripheral vascular disease, history of osteomyelitis, diabetic foot ulcers and amputations. PAST SURGICAL HISTORY: Amputation of the left great toe, multiple toes on the left foot as well; AV fistula, EGD, colonoscopies, eye surgeries, previous PermCath placement. SOCIAL HISTORY: Negative for smoking. No history of drug abuse or alcohol abuse. MEDICATIONS: At home prior to admission included Cymbalta, Pravachol, Abilify, Prilosec, PhosLo, Diltiazem, insulin. Coreg, hydralazine. ALLERGIES: Include LIPITOR, TRAMADOL, COZAAR, TYLENOL. PHYSICAL EXAMINATION: Patient is comfortable, awake, alert, oriented x3. He is not in any acute distress. LABS: Show hemoglobin 9.7, sodium 136, potassium 4.0, calcium 9.0. ASSESSMENT: 1. End-stage renal disease on hemodialysis on a Sunday, Sunday, Sunday schedule. 2. Fluid overload, slowly improving. 3. Abdominal pain, now resolved, nonspecific. The patient is tolerating oral intake fairly well. CT scan did not reveal any major abnormalities. 4. Hypoglycemia this morning, currently improved. 5. Hypertension, currently controlled. PLAN: Hemodialysis today with increase UF as tolerated, about 3-4 L. If the patient is staying overnight we will dialyze him again tomorrow. Otherwise, he will follow up for his regular treatment as outpatient on Sunday. Continue with the phosphate binders. Thank you for this consultation. We will continue to follow the patient with you during his hospitalization. GUERDA / KATHRIN: [id number] /
--- NOTE | 2018-11-17 00:56 | DS ---
DISCHARGE SUMMARY DATE OF ADMISSION: November 13, 2018. DATE OF DISCHARGE: November 15, 2018. FINAL DIAGNOSES: 1. Acute abdominal pain, possibly gastritis, POA. 2. Diabetes mellitus type 2, uncontrolled with hypoglycemia, POA. 3. Peripheral neuropathy and diabetic retinopathy from diabetes. 4. Anemia secondary to chronic kidney disease. 5. End-stage kidney disease on hemodialysis Sunday, Sunday and Sunday. 6. Mineral bone disease due to chronic kidney disease. 7. Essential hypertension and kidney disease. 8. Diabetes mellitus type 2, chronically on insulin. HOSPITAL COURSE: This patient presented with abdominal pain, was afebrile, normal white count. Patient did undergo CT scan of the abdomen and pelvis that did not suggest any abdominal cause. The patient was seen by Dr. Gilliland from General surgery. The patient did well. Pain resolved, started tolerating his diet. Sugars were running rather low and patient's dose of insulin was adjusted. As expected in renal failure, insulin is rather sensitive. The patient is tolerating a diet. He also underwent hemodialysis. CONSULTATION: Dr. Gilliland from General surgery and Dr. Charles from Nephrology. PHYSICAL EXAMINATION: Temperature 99, pulse 96, respiration 16, blood pressure 158/79, pulse ox 94 percent on room air. Lungs decreased breath sounds. ABDOMEN: Soft, nontender. White count 9.2, hemoglobin 9.7, BUN 25, creatinine 4.56. The patient also appetite picked up rather well. Care was discussed with the patient and the mother. DISCHARGE MEDICATIONS: 1. Cymbalta 120 mg at bedtime. 2. Pravachol 40 mg at bedtime. 3. Abilify 10 mg at bedtime. 4. Prilosec 40 mg q.h.s. 5. Hydralazine 100 mg t.i.d. 6. Thera-M Plus 1 tablet p.o. q.h.s. 7. Zanaflex 2 mg p.o. q.8h p.r.n. 8. Morphine sulfate ER 50 mg q.12. 9. Tylenol Extra Strength 1-2 tablets q.4h p.r.n. 10.Eliquis 5 mg p.o. b.i.d. 11.Coreg 6.25 mg p.o. b.i.d. 12.Norvasc 10 mg p.o. daily. 13.PhosLo 667 mg p.o. t.i.d. 14.Insulin Lantus 30 units subcu q.h.s. reduced dose. Accu-Cheks to follow. FOLLOWUP: Follow up with Dr. Trevino in three days. Patient to maintain hemodialysis schedule. Copy to Dr. Trevino. GUERDA / KATHRIN: [id number] /
== END 2018-11-15 15:23 | disposition home or self-care (01) ==
LOC: EC 22:01 → 4MS4W 22:32 → 4SSUR 11-14 17:21
PROVIDERS: ADMIT Hospitalist; ATTEND Hospitalist
DX: R10.13 Epigastric pain (principal); R10.10 Upper abdominal pain, unspecified; R11.0 Nausea; F32.9 Major depressive disorder, single episode, unspecified; J45.909 Unspecified asthma, uncomplicated; K21.9 Gastro-esophageal reflux disease without esophagitis; E78.5 Hyperlipidemia, unspecified; D63.1 Anemia in chronic kidney disease; K44.9 Diaphragmatic hernia without obstruction or gangrene; E83.89 Other disorders of mineral metabolism; K59.00 Constipation, unspecified; E11.22 Type 2 diabetes mellitus with diabetic chronic kidney disease; I13.2 Hypertensive heart and chronic kidney disease with heart failure and with stage 5 chronic kidney disease, or end stage renal disease; I50.22 Chronic systolic (congestive) heart failure; E11.51 Type 2 diabetes mellitus with diabetic peripheral angiopathy without gangrene; E11.40 Type 2 diabetes mellitus with diabetic neuropathy, unspecified; F17.220 Nicotine dependence, chewing tobacco, uncomplicated; E11.319 Type 2 diabetes mellitus with unspecified diabetic retinopathy without macular edema; E11.649 Type 2 diabetes mellitus with hypoglycemia without coma; N18.6 End stage renal disease; Z87.11 Personal history of peptic ulcer disease; Z98.2 Presence of cerebrospinal fluid drainage device; H54.61 Unqualified visual loss, right eye, normal vision left eye; Z89.422 Acquired absence of other left toe(s); Z99.2 Dependence on renal dialysis; Z86.14 Personal history of Methicillin resistant Staphylococcus aureus infection; Z89.412 Acquired absence of left great toe; Z79.4 Long term (current) use of insulin; Z79.891 Long term (current) use of opiate analgesic; Z79.01 Long term (current) use of anticoagulants; Z79.899 Other long term (current) drug therapy; Z88.5 Allergy status to narcotic agent; Z88.8 Allergy status to other drugs, medicaments and biological substances; Z82.3 Family history of stroke; Z83.3 Family history of diabetes mellitus; Z82.49 Family history of ischemic heart disease and other diseases of the circulatory system
CPT/HCPCS: 96361 ×2; 96374; 96375; 99285; 80053; 82150; 83690; 82947; 85025; 74176; G0378 ×3; J2405; S0109; J1170; G0257; 90935

== ENCOUNTER 2019-02-28 12:30 | Inpatient (IN) | payer MEDICARE, OTHER ==
[2019-02-28 16:43] LABS: Glucose,Whole Blood 249 mg/dL (75-99)
[2019-02-28] MEDS ORDERED: ONDANSETRON 4 MG/2 ML VIAL IVP PRN (17:33)
[2019-02-28] MEDS: INSULIN ASPART (NovoLOG) 100 UNIT/ML VIAL SQ SCH ×2 (18:04→21:15)
[2019-02-28] MEDS: hydrALAZINE HCL 50 MG TAB PO SCH ×2 (18:11→21:14)
[2019-02-28] MEDS: SODIUM CHLORIDE 0.9% 1,000 ML IV SCH (18:11)
[2019-02-28] MEDS ORDERED: hydrALAZINE HCL 20 MG/ML 1 ML VIAL IVP PRN (20:03)
[2019-02-28] MEDS ORDERED: METOCLOPRAMIDE 5 MG/ML 2 ML VIAL IVP SCH (20:15)
[2019-02-28 20:34] LABS: Glucose,Whole Blood 283 mg/dL (75-99)
[2019-02-28] MEDS ORDERED: PANTOPRAZOLE 40 MG TABLET PO SCH (21:00)
[2019-02-28] MEDS ORDERED: INSULIN DETEMIR (LEVEMIR) 100 UNIT/ML SYR SQ SCH (21:00)
[2019-02-28] MEDS: amLODIPine 10 MG TAB PO SCH (21:14)
[2019-02-28] MEDS: DULoxetine HCL 60 MG CAPSULE.DR PO SCH (21:15)
[2019-02-28] MEDS: PRAVASTATIN SODIUM 40 MG TAB PO SCH (21:15)
[2019-02-28] MEDS: MULTIVITAMINS, THERA 1 EACH TAB PO SCH (21:15)
[2019-02-28] MEDS: ARIPiprazole 10 MG TAB PO SCH (21:15)
--- NOTE | 2019-03-01 00:21 | XR ---
EXAM: XR Chest, 1 View CLINICAL HISTORY: ITS.REASON XR Reason: chf TECHNIQUE: Frontal view of the chest. COMPARISON: No relevant prior studies available. FINDINGS: Lungs: No definite infiltrate Pleural space: Right greater than left pleural effusions. No pneumothorax. Heart: Cardiomegaly Mediastinum: Unremarkable. Bones/joints: No definite fracture. IMPRESSION: Bilateral pleural effusions.
[2019-03-01] MEDS ORDERED: DICYCLOMINE 20 MG TAB PO PRN (00:55)
[2019-03-01] MEDS ORDERED: TEMAZEPAM 15 MG CAP PO PRN (00:58)
[2019-03-01] MEDS ORDERED: ALPRAZolam 0.25 MG TAB PO PRN (00:58)
[2019-03-01] MEDS: METOCLOPRAMIDE 5 MG/ML 2 ML VIAL IVP SCH ×4 (02:30→20:05)
[2019-03-01] MEDS ORDERED: HYDROcodone/APAP 5-325MG 1 EACH TAB PO PRN (06:02)
[2019-03-01 06:25] LABS: Glucose,Whole Blood 49 mg/dL (75-99)
[2019-03-01 06:45] LABS: Glucose,Whole Blood 34 mg/dL (75-99)
[2019-03-01 06:45] LABS: Glucose,Whole Blood 42 mg/dL (75-99)
[2019-03-01] MEDS: DEXTROSE 50% SYRINGE 50 ML IVP STA (06:46)
[2019-03-01] MEDS: INSULIN ASPART (NovoLOG) 100 UNIT/ML VIAL SQ SCH ×4 (06:52→20:39)
[2019-03-01 06:55] LABS: Anisocytosis Slight; Basophils # (A) 0.1 k/uL (0-0.2); Basophils % (A) 1 %; Eosinophils # (A) 0.5 k/uL (0-0.7); Eosinophils % (A) 4 %; HCT 39.7 % (39.0-53.0); HGB 12.4 gm/dL (13.0-17.5); Hypochromasia Moderate; Lymphocytes # (A) 2.3 k/uL (1.0-4.8); Lymphocytes % (A) 16 %; MCH 25.8 pg (25.0-35.0); MCHC 31.1 g/dL (31.0-37.0); Mean Platelet Volume 8.1; Monocytes # (A) 1.1 k/uL (0-1.0); Monocytes % (A) 8 %; Neutrophils # (A) 9.7 k/uL (1.3-7.7); Neutrophils % (A) 70 %; Platelet Count 310 k/uL (150-450); RBC 4.78 m/uL (4.30-5.90); RDW 17.1 % (11.5-15.5); WBC 13.9 k/uL (3.8-10.6)
[2019-03-01 07:01] LABS: Calcium 9.4 mg/dL (8.4-10.2); Potassium 4.2 mmol/L (3.5-5.1)
[2019-03-01 07:05] LABS: Glucose,Whole Blood 108 mg/dL (75-99)
--- NOTE | 2019-03-01 07:36 | HP ---
HISTORY AND PHYSICAL DATE OF SERVICE: 02/28/2019 CHIEF COMPLAINT: Intractable nausea and abdominal discomfort. HISTORY OF PRESENT ILLNESS: This 38-year-old gentleman with a past medical history of asthma, diabetes, history of diabetic nephropathy, hypertension, history of peripheral neuropathy, being followed by Dr. Trevino in the outpatient setting was started on hemodialysis since 2014. The patient complained of abdominal pain, nausea. Patient unable to tolerate the hemodialysis and patient was sent to [facility] and subsequently transferred to [facility] as a direct admission at this time. A significant pleural effusion on the left side was noted. There is no history of fever rigors. No history of headache, loss of consciousness, seizures at this time. PAST MEDICAL HISTORY: History of diabetes type 2, history of hemodialysis, history of GERD, GI bleed, hypertension, hyperlipidemia, history of pneumonia. MEDICATIONS: Prior to admission include home medications are: 1. Zanaflex 2 mg q.8 p.r.n. 2. Apresoline 100 mg p.o. t.i.d. 3. Norvasc 10 mg p.o. daily. 4. Multivitamins 1 p.o. daily. 5. Pravachol 40 mg q.h.s. 6. Zofran 4 mg q.8 p.r.n. 7. Prilosec 40 mg q.h.s. 8. Claritin 10 mg p.o. daily. 9. Tresiba 30 units subcu daily. 10.NovoLog 50 units subcu a.c. t.i.d. 11.[place] 5 mg p.o. b.i.d. 12.Glucovance Emergency Kit. 13.Bentyl 20 mg q.6h p.r.n. 14.Cymbalta 120 mg q8. 15.Coreg 6.25 mg p.o. b.i.d. 16.PhosLo 667 t.i.d. 17.Abilify 10 mg p.o. q.h.s. ALLERGIES: TYLENOL, LISINOPRIL, LIPITOR,COZAAR AND ULTRAM. FAMILY HISTORY: 1. History of hypertension in the family. 2. History of cerebrovascular accident. SOCIAL HISTORY: No history of smoking. No history of alcohol intake. REVIEW OF SYSTEMS: ENT: No diminished vision. No diminished hearing. CARDIOVASCULAR: No angina or palpitations. RESPIRATION: No cough or hemoptysis. GI as mentioned. mentioned earlier. CENTRAL NERVOUS SYSTEM: No numbness or weakness. ALLERGY/IMMUNOLOGY: No history of asthma or hayfever. MUSCULOSKELETAL as mentioned earlier. HEMATOLOGY/ONCOLOGY: No history of anemia. ENDOCRINE: Diabetes. CONSTITUTIONAL: As mentioned earlier. DERMATOLOGY: Negative. RHEUMATOLOGY: Negative. PSYCHIATRY: As mentioned earlier. PHYSICAL EXAMINATION: Patient is alert and oriented times three. Pulse 96, blood pressure 170/91, respiration 18, temperature 98.6, pulse ox 94% on 2 L. HEENT: Conjunctivae normal. Oral mucosa moist. NECK is no jugular venous distention. No carotid bruit. No lymph node enlargement. CARDIOVASCULAR systems: S1, S2 muffled. No S3, no S4. RESPIRATORY: Breath sounds diminished in the bases. A few scattered rhonchi and crackles. Breath sounds are markedly diminished on the right side. ABDOMEN: Soft. Mild diffuse discomfort on palpation. No guarding. No rigidity. No mass palpable. LEGS: No edema. No swelling. NERVOUS SYSTEM: Higher functions as mentioned earlier, moves all 4 limbs. No focal motor or sensory deficit. Lymphatics: No lymph nodes palpable in the neck, axillae or groin. SKIN: No ulcer, rash or bleeding. JOINTS: No active deforming arthropathy. LABS: At this time shows glucose is 249, 283. ASSESSMENT: 1. Intractable nausea, vomiting, possible acute gastritis. 2. Right pleural effusion. 3. Chronic renal failure end-stage renal disease stage IV on hemodialysis. 4. Diabetes mellitus type 2. 5. Diabetic peripheral neuropathy. 6. Diabetic retinopathy. 7. Gastroesophageal reflux disease. 8. History of gastrointestinal bleed. 9. Hypertension. 10.Hyperlipidemia. 11.History of pneumonia. 12.History of hiatal hernia. 13.History of peptic ulcer disease with gastrointestinal bleed previously. 14.History of MRSA. 15.History of ventriculoperitoneal shunt. 16.History of depression. 17.FULL CODE. RECOMMENDATIONS AND DISCUSSION: In this 38-year-old gentleman who presented with multiple complex medical issues, we will monitor the patient closely, continue the current medications, management and symptomatic treatment. Otherwise, at this time, I recommend proton pump inhibitors and I would also recommend nephrology consultation and possible hemodialysis because it could not be completed yesterday. As far as the pleural effusion is concerned, I would recommend pulmonary consultation with Dr. Tarango for possible thoracocentesis. Otherwise, we will continue to monitor. Repeat labs will be ordered. Home medications will be reconciled. Prognosis extremely guarded because of multiple complex medical issues. Further recommendations to follow. Copy of dictation being forwarded to Dr. Trevino who is the primary physician. MMODL / IJN: [id number] /
[2019-03-01] MEDS ORDERED: INSULIN DEGLUDEC 30 UNIT SQ SCH (09:00)
[2019-03-01] MEDS ORDERED: HYDROcodone/APAP 5-325MG 1 EACH TAB PO SCH (09:00)
[2019-03-01] MEDS: CARVEDILOL 6.25 MG TAB PO SCH ×2 (09:12→16:41)
[2019-03-01] MEDS: LORATADINE 10 MG TAB PO SCH (09:12)
[2019-03-01] MEDS: PANTOPRAZOLE 40 MG/10 ML VIAL IVP SCH ×2 (09:12→20:05)
[2019-03-01] MEDS: CALCIUM ACETATE 667 MG CAP PO SCH ×3 (09:12→16:40)
[2019-03-01] MEDS: hydrALAZINE HCL 50 MG TAB PO SCH ×3 (09:12→20:06)
--- NOTE | 2019-03-01 10:00 | US ---
EXAMINATION TYPE: US chest DATE OF EXAM: 03/01/2019 COMPARISON: NONE CLINICAL HISTORY: Bilateral pleural effusions. Pleural effusion TECHNIQUE: Targeted ultrasound of the posterior lower bilateral hemithoraces EXAM MEASUREMENTS: Right Pleural Effusion pocket size: 12.5 cm Loculated fluid pocket Right skin surface to fluid distance: 3.4 cm Left Pleural Effusion pocket size: 9.3 cm Left skin surface to fluid distance: 3.6 cm Right side marked for possible thoracentesis outside the dept. Left side marked for possible thoracentesis outside the dept. Pulmonologists are able to review the images in the patient?s EMR. IMPRESSIONS: 1. BILATERAL PLEURAL EFFUSIONS. 2. RIGHT-SIDED EFFUSION SEEMS TO BE LOCULATED.
--- NOTE | 2019-03-01 10:31 | P.NPCON ---
History of Present Illness - Reason for Consult end stage renal disease - Chief Complaint Intractable nausea vomiting - History of Present Illness ESRD patient of Dr. Charles, MWF hemodialysis via right forearm AV fistula coming to the hospital with nausea vomiting after hemodialysis. Feels better today. Had full treatment of dialysis yesterday. No diarrhea. Review of Systems Constitutional: Reports as per HPI Past Medical History Past Medical History: Asthma, Diabetes Mellitus, Dialysis, Eye Disorder, GERD/Reflux, GI Bleed, Hyperlipidemia, Hypertension, Pneumonia, Renal Disease Additional Past Medical History / Comment(s): IDDM type I, diabetic since he was age 21, DKA, hiatal hernia, R eye retinal detachment with surgery-vision decreased, hemodialysis.The patient is seeing hemodialysis 3 times a week on Sunday, Sunday and Sunday since Oct 2014, and he has an AV fistula in his lower right arm. Other medical problems are chronic anemia, previous history of GI bleed secondary to peptic ulcer disease, volume overload, chronic kidney disease, peripheral vascular disease, osteomyelitis, diabetic foot ulcers and amputations History of Any Multi-Drug Resistant Organisms: MRSA Date of last positivie culture/infection: 12/20/11 MDRO Source:: Left Foot Past Surgical History: Ventriculoperitoneal Shunt Additional Past Surgical History / Comment(s): renal needle bx, 2008 left great toe amp and 2013 2nd to 5th left foot toes amputated. right chest mediport x2 with removal in 2010 and 2012. right eye retina reattachment sx 03/2015. EGD /colonoscopy. Past Anesthesia/Blood Transfusion Reactions: No Reported Reaction Smoking Status: Never smoker - Past Family History Mother Family Medical History: Hypertension Father Family Medical History: CVA/TIA, Diabetes Mellitus, Hypertension Additional Family Medical History / Comment(s): Father is at the age of 53yrs from a CVA. Medications and Allergies Home Medications Medication Instructions Recorded Confirmed Type DULoxetine HCL [Cymbalta] 120 mg PO HS 05/22/15 02/28/19 History Pravastatin Sodium [Pravachol] 40 mg PO HS 12/26/15 02/28/19 History ARIPiprazole [Abilify] 10 mg PO HS 09/07/16 02/28/19 History Omeprazole [PriLOSEC] 40 mg PO HS 09/07/16 02/28/19 History hydrALAZINE HCL [Apresoline] 100 mg PO TID #90 tab 07/04/17 02/28/19 Rx Thera M Plus 1 tab PO HS 08/05/18 02/28/19 History tiZANidine [Zanaflex] 2 mg PO Q8HR PRN 08/05/18 02/28/19 History Carvedilol [Coreg] 6.25 mg PO BID 11/14/18 02/28/19 History amLODIPine [Norvasc] 10 mg PO DAILY 11/14/18 02/28/19 History Calcium Acetate [PhosLo] 667 mg PO AC-TID #90 cap 11/15/18 02/28/19 Rx Dicyclomine [Bentyl] 20 mg PO Q6H PRN 02/28/19 02/28/19 History Glucagon Emergency Kit 1 mg IM ONCE PRN 02/28/19 02/28/19 History HYDROcodone/APAP 5-325MG [[place] 1 tab PO BID 02/28/19 02/28/19 History 5-325] Insulin Aspart [NovoLOG] 50 unit SQ AC-TID 02/28/19 02/28/19 History Insulin Degludec [Tresiba] 30 unit SQ DAILY 02/28/19 02/28/19 History Loratadine [Claritin] 10 mg PO DAILY 02/28/19 02/28/19 History Ondansetron Odt [Zofran ODT] 4 mg SL Q8HR PRN 02/28/19 02/28/19 History Allergies Allergy/AdvReac Type Severity Reaction Status Date / Time acetaminophen [From Tylenol] Allergy Unknown Verified 02/28/19 17:38 lisinopril Allergy Unknown Verified 02/28/19 17:38 atorvastatin calcium AdvReac Nausea & Verified 02/28/19 17:38 [From Lipitor] Vomiting losartan potassium AdvReac Nausea & Verified 02/28/19 17:38 [From Cozaar] Vomiting tramadol AdvReac drowsiness Verified 02/28/19 17:38 Physical Exam Vitals: Vital Signs Temp Pulse Resp BP Pulse Ox 03/01/19 04:00 98 F 73 16 156/72 96 03/01/19 00:00 98.6 F 96 18 171/91 94 L 02/28/19 21:03 189/98 06/21/19 19:40 198/104 02/28/19 19:20 98.2 F 97 18 178/94 98 02/28/19 16:22 98.5 F 98 20 217/107 95 Intake and Output 02/28/19 03/01/19 03/01/19 22:59 06:59 14:59 Intake Total 80 Balance 80 Intake: Oral 80 Other: Voiding Method Urinal Urinal # Voids 0 Weight 90.718 kg No acute distress S1-S2 heard Decreased breath sounds Right forearm aVF Trace edema Results - Lab Results Most recent lab results Calcium 9.4 mg/dL (8.4-10.2) 03/01/19 06:31 03/01/19 06:31 03/01/19 06:31 Assessment and Plan Assessment: #1 ESRD MWF #2 intractable nausea vomiting resolved #3 Anemia with ESRD #4 hypertension with ESRD #5 metabolic bone disease with ESRD Plan: #1 clinically better no acute indication for renal replacement therapy today #2 plan hemodialysis Sunday as outpatient, it stays in the hospital with 2 dialysis here #3 stable from nephrology for discharge
--- NOTE | 2019-03-01 10:59 | P.CNPUL ---
History of Present Illness Consult date: 03/01/19 Requesting physician: Susan Burciaga Reason for consult: abnormal CXR/CT Chief complaint: Nausea, abdominal pain History of present illness: This is a pleasant 38-year-old gentleman who follows with Dr. Trevino as his primary care physician. He has diabetes mellitus type 1, diabetic nephropathy with end-stage renal disease receiving hemodialysis Sunday via a right arm AV fistula, hypertension, peripheral neuropathy, gastroesophageal reflux disease, GI bleed, hyperlipidemia, diabetic foot ulcers with toe amputations on the left. He initially presented to [facility] with complaints of abdominal pain and nausea and intolerant to hemodialysis. He was subsequently transferred here as a direct admit for further evaluation. Chest x-ray revealed bilateral pleural effusions right greater than left. He is seen today in consultation on the selective care unit. He is currently resting fairly comfortably in bed. Denies any worsening shortness of breath. Dry nonpr oductive cough. No chills or night sweats. Currently afebrile. Maintaining O2 saturations in the 90s on 2 L/m per nasal cannula. Somewhat hypertensive. White count 13.9. Hemoglobin 12.4. Creatinine 4.32. Hypoglycemic this a.m. with a blood glucose of 40. Current blood glucose 108. Review of Systems REVIEW OF SYSTEMS: CONSTITUTIONAL: Denies any recent significant weight loss or weight gain. EYES: Denies change in vision. EARS, NOSE, MOUTH, THROAT: Denies headaches, denies sore throat. CARDIOVASCULAR: Denies chest pain, palpitations or syncopal episodes. RESPIRATORY: Positive for shortness of breath, cough, congestion no hemoptysis. GASTROINTESTINAL: Positive for change in appetite, positive for abdominal pain GENITOURINARY: Denies hematuria, denies infections. MUSKULOSKELETAL: Denies pain, denies swelling. INTEGUMENTARY: Denies rash, denies eczema. NEUROLOGICAL: Denies recent memory loss, no recent seizure activity. PSYCHIATRIC: Denies anxiety, denies depression. HEMATOLOGIC/LYMPHATIC: Denies anemia, denies enlarged lymph nodes. Past Medical History Past Medical History: Asthma, Diabetes Mellitus, Dialysis, Eye Disorder, GERD/Reflux, GI Bleed, Hyperlipidemia, Hypertension, Pneumonia, Renal Disease Additional Past Medical History / Comment(s): IDDM type I, diabetic since he was age 21, DKA, hiatal hernia, R eye retinal detachment with surgery-vision decreased, hemodialysis.The patient is seeing hemodialysis 3 times a week on Sunday, Sunday and Sunday since Oct 2014, and he has an AV fistula in his lower right arm. Other medical problems are chronic anemia, previous history of GI bleed secondary to peptic ulcer disease, volume overload, chronic kidney disease, peripheral vascular disease, osteomyelitis, diabetic foot ulcers and amputations History of Any Multi-Drug Resistant Organisms: MRSA Date of last positivie culture/infection: 12/20/11 MDRO Source:: Left Foot Past Surgical History: Ventriculoperitoneal Shunt Additional Past Surgical History / Comment(s): renal needle bx, 2008 left great toe amp and 2013 2nd to 5th left foot toes amputated. right chest mediport x2 with removal in 2010 and 2012. right eye retina reattachment sx 03/2015. EGD/colonoscopy. Past Anesthesia/Blood Transfusion Reactions: No Reported Reaction Smoking Status: Never smoker - Past Family History Mother Family Medical History: Hypertension Father Family Medical History: CVA/TIA, Diabetes Mellitus, Hypertension Additional Family Medical History / Comment(s): Father is at the age of 53yrs from a CVA. Medications and Allergies Home Medications Medication Instructions Recorded Confirmed Type DULoxetine HCL [Cymbalta] 120 mg PO HS 05/22/15 02/28/19 History Pravastatin Sodium [Pravachol] 40 mg PO HS 12/26/15 02/28/19 History ARIPiprazole [Abilify] 10 mg PO HS 09/07/16 02/28/19 History Omeprazole [PriLOSEC] 40 mg PO HS 09/07/16 02/28/19 History hydrALAZINE HCL [Apresoline] 100 mg PO TID #90 tab 07/04/17 02/28/19 Rx Thera M Plus 1 tab PO HS 08/05/18 02/28/19 History tiZANidine [Zanaflex] 2 mg PO Q8HR PRN 08/05/18 02/28/19 History Carvedilol [Coreg] 6.25 mg PO BID 11/14/18 02/28/19 History amLODIPine [Norvasc] 10 mg PO DAILY 11/14/18 02/28/19 History Calcium Acetate [PhosLo] 667 mg PO AC-TID #90 cap 11/15/18 02/28/19 Rx Dicyclomine [Bentyl] 20 mg PO Q6H PRN 02/28/19 02/28/19 History Glucagon Emergency Kit 1 mg IM ONCE PRN 02/28/19 02/28/19 History HYDROcodone/APAP 5-325MG [[place] 1 tab PO BID 02/28/19 02/28/19 History 5-325] Insulin Aspart [NovoLOG] 50 unit SQ AC-TID 02/28/19 02/28/19 History Insulin Degludec [Tresiba] 30 unit SQ DAILY 02/28/19 02/28/19 History Loratadine [Claritin] 10 mg PO DAILY 02/28/19 02/28/19 History Ondansetron Odt [Zofran ODT] 4 mg SL Q8HR PRN 02/28/19 02/28/19 History Allergies Allergy/AdvReac Type Severity Reaction Status Date / Time acetaminophen [From Tylenol] Allergy Unknown Verified 02/28/19 17:38 lisinopril Allergy Unknown Verified 02/28/19 17:38 atorvastatin calcium AdvReac Nausea & Verified 02/28/19 17:38 [From Lipitor] Vomiting losartan potassium AdvReac Nausea & Verified 02/28/19 17:38 [From Cozaar] Vomiting tramadol AdvReac drowsiness Verified 02/28/19 17:38 Physical Exam Vitals: Vital Signs Temp Pulse Resp BP Pulse Ox 03/01/19 04:00 98 F 73 16 156/72 96 03/01/19 00:00 98.6 F 96 18 171/91 94 L 02/28/19 21:03 189/98 02/28/19 19:40 198/104 02/28/19 19:20 98.2 F 97 18 178/94 98 02/28/19 16:22 98.5 F 98 20 217/107 95 Intake and Output 02/28/19 03/01/19 03/01/19 22:59 06:59 14:59 Intake Total 80 Balance 80 Intake: Oral 80 Other: Voiding Method Urinal Urinal # Voids 0 Weight 90.718 kg GENERAL EXAM: Wasn't 38-year-old gentleman. Alert, fairly comfortable in no apparent distress. On 2 L nasal cannula HEAD: Normocephalic. EYES: Normal reaction of pupils, equal size. NOSE: Clear with pink turbinates. THROAT: No erythema or exudates. NECK: No masses, no JVD. CHEST: No chest wall deformity. LUNGS: Equal air entry with crackles in the bilateral posterior bases right greater than left. CVS: S1 and S2 normal with no audible murmur, regular rhythm. ABDOMEN: No hepatosplenomegaly, normal bowel sounds, no guarding or rigidity. SPINE: No scoliosis or deformity SKIN: No rashes CENTRAL NERVOUS SYSTEM: No focal deficits, tone is normal in all 4 extremities. EXTREMITIES: Right upper extremity AV fistula. Amputated toes from the left foot. There is no peripheral edema. No clubbing, no cyanosis. Peripheral pulses are intact. Results - Laboratory Findings CBC and BMP: 03/01/19 06:31 03/01/19 06:31 Abnormal lab findings: Abnormal Labs 02/28/19 02/28/19 03/01/19 16:35 20:31 06:15 WBC Hgb RDW Neutrophils # Monocytes # Sodium Chloride BUN Creatinine Glucose POC Glucose (mg/dL) 249 H 283 H 49 L 03/01/19 03/01/19 03/01/19 06:31 06:31 06:40 WBC 13.9 H Hgb 12.4 L RDW 17.1 H Neutrophils # 9.7 H Monocytes # 1.1 H Sodium 136 L Chloride 94 L BUN 31 H Creatinine 4.32 H Glucose 40 L* POC Glucose (mg/dL) 34 L 03/01/19 03/01/19 06:41 07:04 WBC Hgb RDW Neutrophils # Monocytes # Sodium Chloride BUN Creatinine Glucose POC Glucose (mg/dL) 42 L 108 H - Diagnostic Findings Chest x-ray: image reviewed Assessment and Plan Assessment: Impression: #1 Abdominal pain with nausea intolerant to hemodialysis. #2 End-stage renal disease receiving hemodialysis on Sunday. #3 Dyspnea secondary to bilateral pleural effusions. #4 Diabetes mellitus, type I. #5 Diabetic neuropathy, status post toe amputations on the left. #6 Hypertension. #7 Hyperlipidemia. #8 History of GI bleed. #9 Esophageal reflux disease. Plan: The patient was seen and evaluated by Dr. Tarango. Chest x-ray and labs reviewed. We'll order ultrasound of the chest to determine if there is any significant free-flowing fluid that would require thoracentesis. The patient was seen and evaluated by nephrology. No plans for hemodialysis until his scheduled Sunday appointment. We will continue to follow and make further recommendations based on his clinical status. I, the cosigning physician, performed a history & physical examination of the patient. Lungs sounds crackles in bilateral bases, diminished. Maintaining good O2 saturations in the 90s on 2 L/m per nasal cannula. I discussed the assessment and plan of care with my nurse practitioner, Alisha Hodges. I attest to the above note as dictated by her. Time with Patient: Greater than 30
[2019-03-01 11:20] LABS: Glucose,Whole Blood 187 mg/dL (75-99)
[2019-03-01 12:39] LABS: Hemoglobin A1C 11.1 % (4.0-6.0)
[2019-03-01] MEDS: amLODIPine 10 MG TAB PO SCH (12:51)
[2019-03-01 16:38] LABS: Glucose,Whole Blood 122 mg/dL (75-99)
[2019-03-01] MEDS: HYDROcodone/APAP 5-325MG 1 EACH TAB PO PRN (20:05)
[2019-03-01] MEDS: MULTIVITAMINS, THERA 1 EACH TAB PO SCH (20:06)
[2019-03-01] MEDS: PRAVASTATIN SODIUM 40 MG TAB PO SCH (20:06)
[2019-03-01] MEDS: DULoxetine HCL 60 MG CAPSULE.DR PO SCH (20:06)
[2019-03-01] MEDS: ARIPiprazole 10 MG TAB PO SCH (20:06)
[2019-03-01] MEDS: INSULIN DETEMIR (LEVEMIR) 100 UNIT/ML SYR SQ SCH (20:39)
[2019-03-01 20:48] LABS: Glucose,Whole Blood 247 mg/dL (75-99)
[2019-03-01] MEDS: SODIUM CHLORIDE 0.9% 1,000 ML IV SCH (21:33)
--- NOTE | 2019-03-01 23:42 | PN ---
PROGRESS NOTE DATE OF SERVICE: 03/01/2019. This 44-year-old gentleman who was admitted with intractable nausea and vomiting also had shortness of breath. The patient also had a pleural effusion mostly on the right side. Dr. Tarango has seen the patient and recommended ultrasound. Otherwise, the patient being closely monitored. No chest pain. No palpitations. No fever. Chest ultrasound done showed today showed right-sided effusion seems to be loculated and bilateral pleural effusion also noted. The patient had previously had bilateral pleural effusion and as well as pericardial effusion also which has been treated in [place] recently according the family. The patient had to be resuscitated during that admission also. PAST MEDICAL HISTORY: Reviewed. REVIEW OF SYSTEMS: CARDIOVASCULAR SYSTEM: No angina or palpitations. RESPIRATION as mentioned earlier. GASTROINTESTINAL: As mentioned earlier. : No dysuria. NERVOUS SYSTEMS: No numbness, weakness. . CURRENT MEDICATIONS: Reviewed and include: 1. [place] 5 mg b.i.d. p.r.n. 2. Xanax 0.25 t.i.d. 3. Norvasc 10 mg p.o. daily. 4. Abilify 10 mg q.h.s. 5. PhosLo 667 a.c. t.i.d. 6. Coreg 6.25 mg p.o. b.i.d. 7. Bentyl 10 mg q.6. 8. Cymbalta 120 mg p.o. q.h.s. 9. Apresoline 100 mg p.o. t.i.d. 10.NovoLog a.c. and q.h.s. 11.Levemir 20 units subcu q.h.s. 12.Claritin 10 mg daily. 13.Reglan 5 mg q.6h p.r.n. 14.Multivitamins one p.o. daily. 15.Zofran 4 mg IV q.6h. 16.Protonix. 17.Pravachol. 18.Restoril 15 mg q.h.s. 19.Zanaflex q.8h p.r.n. PHYSICAL EXAM: Patient is alert, oriented x3. Pulse is 85, blood pressure 145/76, respiratory rate 16. Temperature normal. Pulse ox 98% on room air. HEENT: Conjunctivae normal. NECK: No jugular venous distention. CARDIOVASCULAR: S1, S2 muffled. RESPIRATORY: Breath sounds diminished in the bases. Bilateral scattered rhonchi and crackles. Breath sounds diminished in the right side. ABDOMEN: Soft. Nontender. LEGS are no edema. No swelling. CENTRAL NERVOUS SYSTEM: No focal deficits. LABORATORY DATA: At this time shows, WBC 13.2, hemoglobin 12.4, sodium 136, creatinine 4.32. Accu-Cheks 40. ASSESSMENT: 1. Intractable nausea, vomiting, possible acute gastritis. 2. Right pleural effusion, shortness of breath. 3. Chronic renal failure end-stage renal disease on stage IV on hemodialysis. 4. Diabetes type 2, uncontrolled with hyper- and hypoglycemia. 5. Diabetic peripheral neuropathy. 6. Diabetic retinopathy. 7. Gastroesophageal reflux disease. 8. History of gastrointestinal bleed. 9. Hypertension. 10.Hyperlipidemia. 11.History of pneumonia. 12.History of hiatal hernia. 13.History of peptic ulcer disease with gastrointestinal bleed previously. 14.History of MRSA. 15.History of ventricular peritoneal shunt. 16.History of depression. 17.History of pericardial effusion and apparent tamponade recently previously. 18.FULL CODE. RECOMMENDATIONS AND DISCUSSION: Recommend to continue current medications, monitoring, management and symptomatic treatment. Otherwise, at this time, I recommend continue with conservative line of management and follow closely with Pulmonology and Nephrology. I would also recommend a 2D echo with Doppler for further evaluation for possible pericardial effusion also. Prognosis guarded because of multiple complex medical issues. Further recommendations to follow. MMODL / IJN: [id number] /
[2019-03-02] MEDS: METOCLOPRAMIDE 5 MG/ML 2 ML VIAL IVP SCH ×4 (02:07→20:11)
[2019-03-02] MEDS: HYDROcodone/APAP 5-325MG 1 EACH TAB PO PRN ×3 (03:40→21:57)
[2019-03-02 05:59] LABS: Glucose,Whole Blood 45 mg/dL (75-99)
[2019-03-02 06:12] LABS: Glucose,Whole Blood 41 mg/dL (75-99)
[2019-03-02] MEDS: DEXTROSE 50% SYRINGE 50 ML IVP STA (06:13)
[2019-03-02 06:31] LABS: Glucose,Whole Blood 129 mg/dL (75-99)
[2019-03-02] MEDS: INSULIN ASPART (NovoLOG) 100 UNIT/ML VIAL SQ SCH ×4 (06:31→21:53)
[2019-03-02 08:01] LABS: Anisocytosis Slight; Basophils # (A) 0.1 k/uL (0-0.2); Basophils % (A) 1 %; Eosinophils # (A) 0.5 k/uL (0-0.7); Eosinophils % (A) 6 %; HCT 35.2 % (39.0-53.0); HGB 10.8 gm/dL (13.0-17.5); Hypochromasia Slight; Lymphocytes # (A) 1.4 k/uL (1.0-4.8); Lymphocytes % (A) 15 %; MCH 25.6 pg (25.0-35.0); MCHC 30.5 g/dL (31.0-37.0); MCV 83.8 fL (80.0-100.0); Monocytes # (A) 0.8 k/uL (0-1.0); Monocytes % (A) 9 %; Neutrophils % (A) 67 %; Platelet Count 304 k/uL (150-450); RDW 17.1 % (11.5-15.5); WBC 8.9 k/uL (3.8-10.6)
[2019-03-02 08:19] LABS: Calcium 8.7 mg/dL (8.4-10.2); Potassium 4.9 mmol/L (3.5-5.1)
[2019-03-02] MEDS: hydrALAZINE HCL 50 MG TAB PO SCH ×3 (08:44→20:04)
[2019-03-02] MEDS: amLODIPine 10 MG TAB PO SCH (08:44)
[2019-03-02] MEDS: PANTOPRAZOLE 40 MG/10 ML VIAL IVP SCH (08:44)
[2019-03-02] MEDS: CALCIUM ACETATE 667 MG CAP PO SCH ×3 (08:44→17:26)
[2019-03-02] MEDS: CARVEDILOL 6.25 MG TAB PO SCH ×2 (08:44→17:26)
[2019-03-02] MEDS: LORATADINE 10 MG TAB PO SCH (08:44)
--- NOTE | 2019-03-02 08:59 | ECHOF ---
Referral Reason:pericaridal effusion MEASUREMENTS -------- HEIGHT: 182.9 cm WEIGHT: 90.7 kg BP: RVIDd: 2.7 cm (< 3.3) IVSd: 1.9 cm (0.6 - 1.1) LVIDd: 4.9 cm (3.9 - 5.3) LVPWd: 1.8 cm (0.6 - 1.1) IVSs: 2.0 cm LVIDs: 3.5 cm LVPWs: 2.4 cm Ao Diam: 3.0 cm (2.0 - 3.7) AV Cusp: 2.1 cm (1.5 - 2.6) LA Diam: 2.6 cm (2.7 - 3.8) MV EXCURSION: 23.254 mm (> 18.000) MV EF SLOPE: 140 mm/s (70 - 150) EPSS: 0.4 cm MV E Mason: 0.84 m/s MV DecT: 228 ms MV A Mason: 0.58 m/s MV E/A Ratio: 1.46 RAP: 15.00 mmHg RVSP: 51.56 mmHg FINDINGS -------- Sinus rhythm. This was a technically good study. The left ventricular size is normal. There is severe concentric left ventricular hypertrophy. Ove rall left ventricular systolic function is normal with, an EF between 55 - 60 %. The right ventricle is normal in size. The left atrial size is normal. The right atrial size is normal. Interatrial and interventricular septum intact. Aortic valve is trileaflet and is mildly thickened. The mitral valve leaflets are mildly thickened. Mild mitral annular calcification present. There is trace mitral regurgitation. Moderate tricuspid regurgitation present. There is mild to moderate pulmonary hypertension. The r ight ventricular systolic pressure, as measured by Doppler, is 51.56mmHg. Trace/mild (physiologic) pulmonic regurgitation. The aortic root size is normal. The inferior vena cava is mildly dilated. There is a trivial pericardial effusion present. CONCLUSIONS -------- 1. Sinus rhythm. 2. This was a technically good study. 3. The left ventricular size is normal. 4. There is severe concentric left ventricular hypertrophy. 5. Overall left ventricular systolic function is normal with, an EF between 55 - 60 %. 6. The right ventricle is normal in size. 7. The left atrial size is normal. 8. The right atrial size is normal. 9. Interatrial and interventricular septum intact. 10. Aortic valve is trileaflet and is mildly thickened. 11. The mitral valve leaflets are mildly thickened. 12. Mild mitral annular calcification present. 13. There is trace mitral regurgitation. 14. Moderate tricuspid regurgitation present. 15. There is mild to moderate pulmonary hypertension. 16. The right ventricular systolic pressure, as measured by Doppler, is 51.56mmHg. 17. Trace/mild (physiologic) pulmonic regurgitation. 18. The aortic root size is normal. 19. The inferior vena cava is mildly dilated. 20. There is a trivial pericardial effusion present. EQUIPMENT OPERATOR/LABORER/SUPERVISOR: Jessa Real RDCS
[2019-03-02 11:23] LABS: Glucose,Whole Blood 239 mg/dL (75-99)
--- NOTE | 2019-03-02 13:49 | P.PN ---
Subjective Progress Note Date: 03/02/19 Seen and examined for the follow-up of ESRD. Feeling better today. No nausea vomiting diarrhea. Complaining of some back pain. Objective - Vital Signs Vital signs: Vital Signs Temp 97.2 F L 03/02/19 08:00 Pulse 96 03/02/19 12:00 Resp 16 03/02/19 12:00 BP 159/83 03/02/19 12:00 Pulse Ox 92 L 03/02/19 12:00 Intake & Output 03/01/19 03/02/19 03/02/19 18:59 06:59 18:59 Intake Total 280 240 Balance 280 240 Weight 90.3 kg 90.3 kg Intake: Oral 280 240 Other: Voiding Method Urinal Urinal Urinal # Voids 0 0 - Exam No acute distress Sitting comfortably S1-S2 heard Lungs clear Right forearm aVF - Labs CBC & Chem 7: 03/02/19 06:32 03/02/19 06:32 Labs: Abnormal Lab Results - Last 24 Hours (Table) 03/01/19 03/01/19 03/02/19 Range/Units 16:37 20:32 05:49 RBC (4.30-5.90) m/uL Hgb (13.0-17.5) gm/dL Hct (39.0-53.0) % MCHC (31.0-37.0) g/dL RDW (11.5-15.5) % Sodium (137-145) mmol/L Chloride (98-107) mmol/L BUN (9-20) mg/dL Creatinine (0.66-1.25) mg/dL Glucose (74-99) mg/dL POC Glucose (mg/dL) 122 H 247 H 45 L (75-99) mg/dL 03/02/19 03/02/19 03/02/19 Range/Units 06:11 06:29 06:32 RBC 4.20 L (4.30-5.90) m/uL Hgb 10.8 L (13.0-17.5) gm/dL Hct 35.2 L (39.0-53.0) % MCHC 30.5 L (31.0-37.0) g/dL RDW 17.1 H (11.5-15.5) % Sodium (137-145) mmol/L Chloride (98-107) mmol/L BUN (9-20) mg/dL Creatinine (0.66-1.25) mg/dL Glucose (74-99) mg/dL POC Glucose (mg/dL) 41 L 129 H (75-99) mg/dL 03/02/19 03/02/19 Range/Units 06:32 11:22 RBC (4.30-5.90) m/uL Hgb (13.0-17.5) gm/dL Hct (39.0-53.0) % MCHC (31.0-37.0) g/dL RDW (11.5-15.5) % Sodium 134 L (137-145) mmol/L Chloride 93 L (98-107) mmol/L BUN 44 H (9-20) mg/dL Creatinine 6.05 H (0.66-1.25) mg/dL Glucose 136 H (74-99) mg/dL POC Glucose (mg/dL) 239 H (75-99) mg/dL Assessment and Plan Assessment: #1 ESRD MWF #2 intractable nausea vomiting resolved #3 Anemia with ESRD #4 hypertension with ESRD #5 metabolic bone disease with ESRD Plan: #1 clinically better no acute indication for renal replacement therapy today #2 plan hemodialysis Sunday #3 stable from nephrology for discharge
[2019-03-02 17:11] LABS: Glucose,Whole Blood 324 mg/dL (75-99)
[2019-03-02] MEDS: HYDROmorphone 0.5 MG/0.5 ML SYRINGE IVP PRN ×2 (17:25→23:39)
[2019-03-02] MEDS: PANTOPRAZOLE 40 MG TABLET PO SCH (17:26)
[2019-03-02] MEDS: SODIUM CHLORIDE 0.9% 1,000 ML IV SCH (19:53)
[2019-03-02] MEDS: MULTIVITAMINS, THERA 1 EACH TAB PO SCH (20:04)
[2019-03-02] MEDS: ARIPiprazole 10 MG TAB PO SCH (20:05)
[2019-03-02] MEDS: DULoxetine HCL 60 MG CAPSULE.DR PO SCH (20:05)
[2019-03-02] MEDS: PRAVASTATIN SODIUM 40 MG TAB PO SCH (20:05)
[2019-03-02 20:54] LABS: Glucose,Whole Blood 322 mg/dL (75-99)
[2019-03-02] MEDS: INSULIN DETEMIR (LEVEMIR) 100 UNIT/ML SYR SQ SCH (21:54)
--- NOTE | 2019-03-02 22:37 | PN ---
PROGRESS NOTE DATE OF SERVICE: 03/02/2019. HISTORY: This 38-year-old gentleman who was admitted with intractable nausea and vomiting also had right pleural effusion. The patient also had chronic renal failure, end- stage renal disease with hemodialysis. The patient has seen multiple consultants including Dr. Tarango and Dr. Mic Marks. A 2D echo with Doppler showed no evidence of any pericardial effusion at this time. Ejection fraction 55-60 percent. Chest ultrasound has been marked. Dr. Tarango is following the patient closely. PAST MEDICAL HISTORY: Reviewed. REVIEW OF SYSTEMS: CARDIOVASCULAR system: No angina or palpitations. RESPIRATORY: As mentioned earlier. GASTROINTESTINAL: No nausea. No vomiting. : No dysuria. CENTRAL NERVOUS SYSTEM: No numbness, weakness. CURRENT MEDICATIONS: Current medications are reviewed and include: 1. [place] 5 mg q.6h p.r.n. 2. Xanax 0.25 t.i.d. 3. Norvasc 10 mg daily. 4. Abilify 10 mg q.h.s. 5. PhosLo 667 p.o. t.i.d. 6. Coreg 6.25 mg b.i.d. 7. Bentyl 20 mg p.r.n. 8. Cymbalta 120 mg q.h.s. p.r.n. 9. Apresoline 100 mg p.o. t.i.d. 10.10 mg q.6h p.r.n. 11.Dilaudid 0.5 mg q.h.s. 12.NovoLog scale. 13.Levemir 20 units subcu q.h.s. 14.Claritin 10 mg p.o. daily. 15.Reglan 5 mg q.6h. 16.Multivitamins one p.o. daily. 17.Zofran 4 mg q.6 p.r.n. 18.Protonix 40 mg b.i.d. 19.Pravachol 40 mg q.h.s. 20.Restoril 15 mg q.h.s. 21.Zanaflex 2 mg q.8. PHYSICAL EXAMINATION: Patient is alert and oriented times three. Pulse 90. Blood pressure 160/90, respiration 16, temperature 97.2, pulse ox 94% on room air. HEENT: Conjunctivae normal. NECK: No jugular venous distention. CARDIOVASCULAR: S1, S2 muffled. RESPIRATORY: Breath sounds diminished in the bases. Scattered rhonchi and crackles. ABDOMEN: Soft, nontender. No mass palpable. LEGS: No edema. No swelling. CENTRAL NERVOUS SYSTEM: No focal deficits. Moves all four limbs. No focal deficits. Lymphatics: No lymph nodes palpable in the neck, axillae or groin. SKIN: No ulcer, rashes or bleeding. JOINTS: No active deforming arthropathy. LABS: WBC 8.9, hemoglobin 10.8, sodium 130, potassium 4.9, creatinine 6.05. ASSESSMENT: 1. Intractable nausea, vomiting, possible acute gastritis. 2. Right pleural effusion, shortness of breath. 3. Chronic renal failure, end-stage renal disease stage IV on hemodialysis. 4. Diabetes type 2, uncontrolled with hyper- and hypoglycemia. 5. Diabetic peripheral neuropathy. 6. Diabetic retinopathy. 7. Gastroesophageal reflux disease. 8. History of gastrointestinal bleed. 9. Hypertension. 10.Hyperlipidemia. 11.History of pneumonia. 12.History of hiatal hernia. 13.History of peptic ulcer disease with gastrointestinal bleed previously. 14.History of MRSA. 15.History of ventriculoperitoneal shunt. 16.History of depression. 17.History of pericardial effusion with apparent tamponade recently previously. 18.FULL CODE. RECOMMENDATIONS AND DISCUSSION: This 38-year-old gentleman who presented with multiple complex medical issues, we will monitor the patient closely. Continue the current medications, management and symptomatic treatment. Continue with hemodialysis. I would recommend repeat chest x- ray, 2D echo showed no evidence of any tamponade. Pain medications. Guarded prognosis because of multiple complex medical issues. Further recommendations to follow. MMODL / IJN: [id number] / [facility]
[2019-03-03] MEDS: METOCLOPRAMIDE 5 MG/ML 2 ML VIAL IVP SCH ×4 (02:32→20:28)
[2019-03-03] MEDS: HYDROcodone/APAP 5-325MG 1 EACH TAB PO PRN ×3 (03:27→22:58)
[2019-03-03] MEDS: PANTOPRAZOLE 40 MG TABLET PO SCH ×2 (06:17→16:52)
[2019-03-03] MEDS: CALCIUM ACETATE 667 MG CAP PO SCH ×3 (06:17→16:51)
[2019-03-03] MEDS: CARVEDILOL 6.25 MG TAB PO SCH ×2 (06:17→16:52)
[2019-03-03] MEDS: HYDROmorphone 0.5 MG/0.5 ML SYRINGE IVP PRN ×3 (06:21→20:27)
[2019-03-03 06:50] LABS: Glucose,Whole Blood 71 mg/dL (75-99)
[2019-03-03] MEDS: INSULIN ASPART (NovoLOG) 100 UNIT/ML VIAL SQ SCH ×4 (06:56→22:10)
[2019-03-03 07:05] LABS: Anisocytosis Slight; Basophils # (A) 0.1 k/uL (0-0.2); Basophils % (A) 1 %; Eosinophils # (A) 0.6 k/uL (0-0.7); Eosinophils % (A) 7 %; HCT 33.3 % (39.0-53.0); HGB 10.7 gm/dL (13.0-17.5); Hypochromasia Moderate; Lymphocytes # (A) 1.5 k/uL (1.0-4.8); Lymphocytes % (A) 19 %; MCH 26.8 pg (25.0-35.0); MCHC 32.1 g/dL (31.0-37.0); MCV 83.4 fL (80.0-100.0); Mean Platelet Volume 7.7; Monocytes # (A) 0.7 k/uL (0-1.0); Monocytes % (A) 9 %; Neutrophils # (A) 5.1 k/uL (1.3-7.7); Neutrophils % (A) 63 %; Platelet Count 288 k/uL (150-450); RDW 16.6 % (11.5-15.5); WBC 8.2 k/uL (3.8-10.6)
[2019-03-03 07:16] LABS: Calcium 8.9 mg/dL (8.4-10.2); Potassium 5.6 mmol/L (3.5-5.1)
--- NOTE | 2019-03-03 10:25 | P.PN ---
Subjective Patient is seen in follow-up for end-stage renal disease. He is maintained on hemodialysis on Sunday schedule. Denies nausea vomiting. No diarrhea. Oral intake is good. No active complaints at this time. Vital signs are stable. General: The patient appeared well nourished and normally developed. HEENT: Head exam is unremarkable. Neck is without jugular venous distension. LUNGS: Lungs are clear to auscultation and percussion. Breath sounds decreased. HEART: Rate and Rhythm are regular. First and second heart sounds normal. No murmurs, rubs or gallops. ABDOMEN: Abdominal exam reveals normal bowel sounds. Non-tender and non- distended. No evidence of peritonitis. EXTREMITITES: No clubbing, cyanosis, or edema. Objective - Vital Signs Vital signs: Vital Signs Temp 98.3 F 03/03/19 03:57 Pulse 91 03/03/19 08:00 Resp 16 03/03/19 08:00 BP 138/86 03/03/19 08:00 Pulse Ox 91 L 03/03/19 08:00 Intake & Output 03/02/19 03/03/19 03/03/19 18:59 06:59 18:59 Intake Total 800 100 506 Balance 800 100 506 Weight 90.3 kg 91.8 kg Intake: Intake, IV Titration 160 Amount Sodium Chloride 0.9% 1, 160 000 ml @ 20 mls/hr IV . Q24H [facility] Rx#:[id number] Oral 640 100 506 Other: Voiding Method Urinal Urinal # Voids 0 2 - Labs CBC & Chem 7: 03/03/19 06:47 03/03/19 06:47 Labs: Abnormal Lab Results - Last 24 Hours (Table) 03/02/19 03/02/19 03/02/19 Range/Units 11:22 17:10 20:53 RBC (4.30-5.90) m/uL Hgb (13.0-17.5) gm/dL Hct (39.0-53.0) % RDW (11.5-15.5) % Sodium (137-145) mmol/L Potassium (3.5-5.1) mmol/L Chloride (98-107) mmol/L BUN (9-20) mg/dL Creatinine (0.66-1.25) mg/dL Glucose (74-99) mg/dL POC Glucose (mg/dL) 239 H 324 H 322 H (75-99) mg/dL 03/03/19 03/03/19 03/03/19 Range/Units 06:47 06:47 06:49 RBC 4.00 L (4.30-5.90) m/uL Hgb 10.7 L (13.0-17.5) gm/dL Hct 33.3 L (39.0-53.0) % RDW 16.6 H (11.5-15.5) % Sodium 134 L (137-145) mmol/L Potassium 5.6 H (3.5-5.1) mmol/L Chloride 93 L (98-107) mmol/L BUN 57 H (9-20) mg/dL Creatinine 7.52 H* (0.66-1.25) mg/dL Glucose 70 L (74-99) mg/dL POC Glucose (mg/dL) 71 L (75-99) mg/dL Assessment and Plan Plan: Assessment: 1. End-stage renal disease maintained on hemodialysis on a Sunday schedule. 2. Hyperkalemia secondary to chronic kidney disease. 3. Hypertension with chronic kidney disease. 4. Chronic kidney disease mineral bone disease maintained on PhosLo. 5. Insulin-dependent diabetes mellitus. 6. Nausea and vomiting. Possibly gastroenteritis versus gastroparesis. Resolved. Plan: Hemodialysis today. Stable to be discharged home from nephrology standpoint.
--- NOTE | 2019-03-03 10:55 | XR ---
EXAMINATION TYPE: XR chest 1V portable DATE OF EXAM: 03/03/2019 COMPARISON: Prior chest x-ray 03/01/2019 HISTORY: Right pleural effusion TECHNIQUE: Single frontal view of the chest is obtained. FINDINGS: Findings are similar to prior exam. Increased density along the right pleural margin, obsc ured right hemidiaphragm persists. There is blunting of the left costophrenic angle. No pneumothorax. Heart remains enlarged. IMPRESSION: Similar to prior exam. Suspect bilateral pleural effusions right greater than left assoc iated atelectasis, difficult to exclude pneumonia, follow-up to resolution. Cardiomegaly.
--- NOTE | 2019-03-03 11:30 | CDI ---
Documentation Clarification Form Date: 03/03/2019 11:00:53 AM From: Parvin Corley RN, CCDS Admit Date: 02/28/2019 4:18:00 PM Patient Name: Jairo Howell Visit Number: [id number] Discharge Date: ATTENTION: The Clinical Documentation Specialists (CDI) and [facility] Coding Staff appreciate your assistance in clarifying documentation. Please respond to the clarification below the line at the bottom and electronically sign. The CDI & [facility] Coding staff will review the response and follow-up if needed. Please note: Queries are made part of the Legal Health Record. If you have any questions, please contact the author of this message via ITS. Dr. Zander Urias History of diabetes is documented in the past medical history, H/P and progress notes. Chief compliant of and/or presenting with symptoms: Abdominal pain, nausea and vomiting. He was unable to tolerate the hemodialysis. History/Risk Factors: Diabetes type 2, ESRD on HD, Hypertension, GERD, Diabetic retinopathy, Diabetic peripheral neuropathy, Peptic ulcer disease with GI Bleed Clinical Indicators: Present with complaints of abdominal pain, nausea and vomiting after hemodialysis. Abdomen has no signs of hepatosplenomegaly, normal bowel sound, no guarding or rigidity. 03/03 Nephrology progress note: Nausea and vomiting. Possibly gastroenteritis versus gastroparesis. Resolved. Treatment: Protonix IV (now Po) Zofran IVP PRN Reglan IVP Q6H Bentyl 20 PO Q6 PRN In your professional opinion, can you please clarify the relationship between the diabetes and the patients presenting symptoms if known? Diabetic Gastroparesis Acute Gastroenteritis (due to; specify if known) Other, please specify Unable to Determine Other, please specify___ (Last Revision: June 2017) Acute gastritis MTDD
[2019-03-03 11:54] LABS: Glucose,Whole Blood 134 mg/dL (75-99)
[2019-03-03 12:10] LABS: INR 0.9 (<1.2)
[2019-03-03] MEDS: hydrALAZINE HCL 50 MG TAB PO SCH ×3 (14:24→22:10)
[2019-03-03] MEDS: LORATADINE 10 MG TAB PO SCH (14:24)
[2019-03-03] MEDS: amLODIPine 10 MG TAB PO SCH (14:24)
--- NOTE | 2019-03-03 15:54 | P.PCN ---
Date of Procedure: 03/03/19 Preoperative Diagnosis: right pleural effusion Postoperative Diagnosis: same Procedure(s) Performed: u/s chest tube placement Anesthesia: local Estimated Blood Loss (ml): 5 Pathology: other (10cc of effusion) Condition: stable Disposition: no change Indications for Procedure: effusion Operative Findings: 8.5 fr tube placement posterior right chest, dark fluid drainage, specimen to lab, chest xray pending
--- NOTE | 2019-03-03 16:01 | US ---
EXAMINATION TYPE: US guided chest tube insertion DATE OF EXAM: 03/03/2019 COMPARISON: Chest x-ray same date HISTORY: Loculated pleural effusion. PROCEDURE:The posterior right chest was evaluated with real-time ultrasound. Loculated fluid was iden tified. The skin overlying a suitable pocket of fluid was localized and the overlying skin prepped an d draped. Lidocaine used for local anesthesia. Skin juan made with a scalpel. 21-gauge needle advance d into the pleural space and fluid returned in the hub of the needle. A 0.018 inch wire was advanced. Access site was dilated with a transitional dilator and the wire was upsized to a 0.038 inch J-wire. Access site was dilated with a dilator and subsequently an 8.5 [place] tube was advanced over the wir e and fixed in position. Postprocedure chest x-rays pending. Catheter is draining dark-colored fluid. Catheter was attached to water seal. Catheter was attached to one-way valve. Hemostasis achieved. Patient remained in stable condition. IMPRESSION: Status post ultrasound chest tube insertion. This procedure performed by the undersigned
[2019-03-03 17:17] LABS: Glucose,Whole Blood 294 mg/dL (75-99)
--- NOTE | 2019-03-03 17:29 | PN ---
PROGRESS NOTE DATE OF SERVICE: 03/03/2019 This 38-year-old gentleman who was admitted with multiple medical problems had nausea and vomiting as well as right pleural effusion, also. The patient is receiving hemodialysis today; about 3 L of fluids is being removed by hemodialysis. Most recent chest x-ray showed persistent pleural effusion. Past medical history reviewed. PHYSICAL EXAMINATION: Patient is alert oriented x3. Pulse is 93, blood pressure 170/92, respiration 18, temperature 98.3, pulse ox 91% on room air. HEENT: Conjunctivae normal. NECK: No jugular venous distention. CARDIOVASCULAR SYSTEM: S1, S2 muffled. RESPIRATORY SYSTEM: Breath sounds diminished at the bases. Bilateral scattered rhonchi and crackles. Breath sounds diminished in the right lower chest. ABDOMEN: Soft, non-tender. LEGS: No edema. No swelling. NERVOUS SYSTEM: No focal deficit. LABS: WBC 8.2, hemoglobin 10.7. Sodium 134, potassium 5.6. Creatinine 7.52. ASSESSMENT: 1. Intractable nausea, vomiting; possible acute gastritis. 2. Right pleural effusion and shortness of breath. 3. Chronic renal failure, stage IV, with hemodialysis. 4. Hyperkalemia, mild. 5. Diabetes mellitus, type 2, uncontrolled, with hyper- and hypoglycemia. 6. Diabetic peripheral neuropathy. 7. Diabetic retinopathy. 8. Gastroesophageal reflux disease. 9. History of gastrointestinal bleed. 10.Hypertension. 11.Hyperlipidemia. 12.History of pneumonia. 13.History of hiatal hernia. 14.History of peptic ulcer disease with gastrointestinal bleed previously. 15.History of methicillin-resistant Staphylococcus aeruginosa. 16.History of ventriculoperitoneal shunt. 17.History of depression. 18.History of pericardial effusion with apparent tamponade previously. 19.FULL CODE. RECOMMENDATIONS AND DISCUSSION: I recommend to continue current medications, continue with the monitoring, symptomatic treatment. Closely follow with Nephrology regarding the hemodialysis, Pulmonology regarding the possible thoracocentesis. Guarded prognosis. Further recommendations to follow. MMODL / IJN: [id number] /
--- NOTE | 2019-03-03 17:40 | XR ---
EXAMINATION TYPE: XR chest 1V portable DATE OF EXAM: 03/03/2019 COMPARISON: NONE HISTORY: Post chest tube placement TECHNIQUE: Single frontal view of the chest is obtained. FINDINGS: Interval placement of a chest tube on the right. There is some improved aeration on the ri ght. No pneumothorax. No other significant interval change. IMPRESSION: No evident complication status post chest tube placement
[2019-03-03 17:57] LABS: Appearance,BF Bloody; Color,BF Red; Nucleated Cells, Body Fluid 13800 /uL
[2019-03-03 17:58] LABS: Mononuclear WBC,Body Fluid 47 %; Polynuclear WBC,Body Fluid 49 %; RBC, Body Fluid 928400 /uL
[2019-03-03] MEDS: MULTIVITAMINS, THERA 1 EACH TAB PO SCH (20:28)
[2019-03-03] MEDS: PRAVASTATIN SODIUM 40 MG TAB PO SCH (20:28)
[2019-03-03] MEDS: ARIPiprazole 10 MG TAB PO SCH (20:28)
[2019-03-03] MEDS: DULoxetine HCL 60 MG CAPSULE.DR PO SCH (20:28)
[2019-03-03 20:41] LABS: Glucose,Whole Blood 317 mg/dL (75-99)
[2019-03-03] MEDS: INSULIN DETEMIR (LEVEMIR) 100 UNIT/ML SYR SQ SCH (22:10)
[2019-03-04 00:49] LABS: Total Protein, Body Fluid 3379 mg/dL
[2019-03-04] MEDS: SODIUM CHLORIDE 0.9% 1,000 ML IV SCH ×2 (03:04→18:41)
[2019-03-04] MEDS: METOCLOPRAMIDE 5 MG/ML 2 ML VIAL IVP SCH ×4 (03:07→21:31)
[2019-03-04] MEDS: HYDROmorphone 0.5 MG/0.5 ML SYRINGE IVP PRN ×4 (03:08→22:00)
[2019-03-04 06:47] LABS: Glucose,Whole Blood 160 mg/dL (75-99)
[2019-03-04 06:48] LABS: Anisocytosis Slight; Basophils # (A) 0.1 k/uL (0-0.2); Basophils % (A) 1 %; Eosinophils # (A) 0.6 k/uL (0-0.7); Eosinophils % (A) 8 %; HGB 10.3 gm/dL (13.0-17.5); Hypochromasia Slight; Lymphocytes # (A) 1.2 k/uL (1.0-4.8); Lymphocytes % (A) 15 %; MCH 25.8 pg (25.0-35.0); MCHC 30.3 g/dL (31.0-37.0); Mean Platelet Volume 7.4; Monocytes # (A) 0.8 k/uL (0-1.0); Monocytes % (A) 9 %; Neutrophils # (A) 5.4 k/uL (1.3-7.7); Neutrophils % (A) 65 %; Platelet Count 287 k/uL (150-450); WBC 8.2 k/uL (3.8-10.6)
[2019-03-04 07:01] LABS: Calcium 8.9 mg/dL (8.4-10.2); Potassium 5.3 mmol/L (3.5-5.1)
[2019-03-04] MEDS: PANTOPRAZOLE 40 MG TABLET PO SCH ×2 (07:04→17:27)
[2019-03-04] MEDS: CARVEDILOL 6.25 MG TAB PO SCH ×2 (07:04→17:27)
[2019-03-04] MEDS: CALCIUM ACETATE 667 MG CAP PO SCH ×3 (07:04→17:28)
[2019-03-04] MEDS: INSULIN ASPART (NovoLOG) 100 UNIT/ML VIAL SQ SCH ×4 (07:07→21:32)
[2019-03-04] MEDS: HYDROcodone/APAP 5-325MG 1 EACH TAB PO PRN ×3 (08:12→20:02)
[2019-03-04] MEDS: LORATADINE 10 MG TAB PO SCH (08:12)
[2019-03-04] MEDS: amLODIPine 10 MG TAB PO SCH (08:14)
[2019-03-04] MEDS: hydrALAZINE HCL 50 MG TAB PO SCH ×3 (08:14→21:31)
--- NOTE | 2019-03-04 10:09 | P.PN ---
Subjective Patient is seen in follow-up for end-stage renal disease. He is maintained on hemodialysis on Sunday schedule. Denies nausea or vomiting. No diarrhea. Oral intake is good. He was noted to have a loculated pleural effusion and had a chest tube placed on March 03. He's had about thousand cc of output since insertion. Vital signs are stable. General: The patient appeared well nourished and normally developed. HEENT: Head exam is unremarkable. Neck is without jugular venous distension. LUNGS: Lungs are clear to auscultation and percussion. Breath sounds decreased. Chest tube noted. HEART: Rate and Rhythm are regular. First and second heart sounds normal. No murmurs, rubs or gallops. ABDOMEN: Abdominal exam reveals normal bowel sounds. Non-tender and non- distended. No evidence of peritonitis. EXTREMITITES: No clubbing, cyanosis, or edema. Objective - Vital Signs Vital signs: Vital Signs Temp 97.9 F 03/04/19 04:00 Pulse 91 03/04/19 04:00 Resp 18 03/04/19 04:00 BP 172/85 03/04/19 04:00 Pulse Ox 95 03/04/19 04:00 Intake & Output 03/03/19 03/04/19 03/04/19 18:59 06:59 18:59 Intake Total 1536 130 480 Output Total 4500 180 Balance -2964 130 300 Weight 88.9 kg Intake: IV 10 0.9 10 Oral 1036 120 480 Hemodialysis 500 Output: Chest Tube Drainage 180 Chest Tube Right 180 Hemodialysis 4500 Other: Voiding Method Urinal Urinal - Labs CBC & Chem 7: 03/04/19 06:23 03/04/19 06:23 Labs: Abnormal Lab Results - Last 24 Hours (Table) 03/03/19 03/03/19 03/03/19 Range/Units 11:48 17:14 20:39 RBC (4.30-5.90) m/uL Hgb (13.0-17.5) gm/dL Hct (39.0-53.0) % MCHC (31.0-37.0) g/dL RDW (11.5-15.5) % Sodium (137-145) mmol/L Potassium (3.5-5.1) mmol/L Chloride (98-107) mmol/L BUN (9-20) mg/dL Creatinine (0.66-1.25) mg/dL Glucose (74-99) mg/dL POC Glucose (mg/dL) 134 H 294 H 317 H (75-99) mg/dL 03/04/19 03/04/19 03/04/19 Range/Units 06:23 06:23 06:45 RBC 4.00 L (4.30-5.90) m/uL Hgb 10.3 L (13.0-17.5) gm/dL Hct 34.0 L (39.0-53.0) % MCHC 30.3 L (31.0-37.0) g/dL RDW 17.0 H (11.5-15.5) % Sodium 133 L (137-145) mmol/L Potassium 5.3 H (3.5-5.1) mmol/L Chloride 94 L (98-107) mmol/L BUN 39 H (9-20) mg/dL Creatinine 5.86 H (0.66-1.25) mg/dL Glucose 175 H (74-99) mg/dL POC Glucose (mg/dL) 160 H (75-99) mg/dL Microbiology - Last 24 Hours (Table) 03/03/19 16:13 Gram Stain - Preliminary Pleural Fluid Body Fluid Culture - Preliminary Assessment and Plan Plan: Assessment: 1. End-stage renal disease maintained on hemodialysis on a Sunday schedule. 2. Hyperkalemia secondary to chronic kidney disease. Better post dialysis. 3. Hypertension with chronic kidney disease. 4. Chronic kidney disease mineral bone disease maintained on PhosLo. 5. Insulin-dependent diabetes mellitus. 6. Nausea and vomiting. Possibly gastroenteritis versus gastroparesis. Resolved. 7. Loculated pleural effusion status post chest tube insertion in March 03. Plan: Hemodialysis tomorrow.
--- NOTE | 2019-03-04 11:49 | CT ---
EXAMINATION TYPE: CT chest wo con DATE OF EXAM: 03/04/2019 COMPARISON: 05/11/2017 HISTORY: CHF abd ESRD. Loculated pleural effusion CT DLP: 331.[address] of the chest was performed with lung and mediastinal window settings submitted. The la ck of contrast limits evaluation of the vascular, mediastinal and parenchymal structures including th e upper abdomen. LUNGS: Pigtail right basilar pleural catheter is noted to be in place. There is loculated right-sided pleural effusion with the associated airspace consolidation. Multiple pockets of air also noted poss ibly related to recent introduction of pleural catheter. Small left-sided pleural effusion noted as w ell as left basilar atelectasis or and/or infiltrate. MEDIASTINUM/JEFF: Thoracic aorta is of normal caliber with limited evaluation given lack of contrast . The heart is enlarged. No evidence for mediastinal mass. No lymph nodes greater than 1cm. UPPER ABDOMEN: No significant abnormality is seen. OTHER: Negative appearing kidneys are partially imaged. IMPRESSION: 1. Loculated right-sided pleural effusion moderate to large in size with interposed foci of air like ly related to recent pigtail pleural catheter placement. Associated right midlung zone and right basi lar atelectasis and/or infiltrate. 2. Left basilar pleural effusion and atelectasis and/or infiltrate noted. 3. Cardiomegaly.
[2019-03-04 12:16] LABS: Glucose,Whole Blood 212 mg/dL (75-99)
[2019-03-04] MEDS ORDERED: ALTEPLASE 10 MG in SODIUM CHLORIDE 0.9% 100 ML IRRIGATION ONE (16:00)
[2019-03-04 17:22] LABS: Glucose,Whole Blood 277 mg/dL (75-99)
--- NOTE | 2019-03-04 17:30 | PN ---
PROGRESS NOTE DATE OF SERVICE: 03/04/2019 This 38-year-old gentleman who was admitted with intractable nausea and vomiting, possible acute gastritis, also had right pleural effusion. The patient underwent pigtail catheter placement for right pleural effusion. The chest tube is draining dark fluid. The patient is being closely monitored at this time. The patient also received hemodialysis yesterday. A chest CT was recommended by Dr. Corey today which showed loculated right-sided pleural effusion, moderate to large in size, with interposed foci of air, likely related to recent pigtail catheter placement, and right mid lung and basilar atelectasis also noted. Left basilar pleural effusion was also noted along with cardiomegaly. Past medical history reviewed. REVIEW OF SYSTEMS: CARDIOVASCULAR SYSTEM: No angina, palpitations. RESPIRATORY SYSTEM: As mentioned earlier. GI: No nausea, vomiting. : No dysuria or retention. NERVOUS SYSTEM: No numbness, weakness. CURRENT MEDICATIONS: Reviewed. They include: 1. [place] 5 mg q.6 p.r.n. 2. Xanax 0.25 t.i.d. 3. Norvasc 10 mg p.o. daily. 4. Abilify 10 mg at bedtime. 5. PhosLo 667 p.o. t.i.d. 6. Coreg 6.25 mg b.i.d. 7. Bentyl 20 mg q.6 p.r.n. 8. Cymbalta 120 mg at bedtime. 9. Apresoline 100 mg p.o. t.i.d. 10.Dilaudid 0.5 q.6 p.r.n. 11.NovoLog before meals and at bedtime. 12.Levemir 20 units subcutaneously at bedtime. 13.Claritin 10 mg daily. 14.Reglan 5 mg IV q.6 p.r.n. 15.Multivitamins. 16.Zofran. 17.Protonix. 18.Pravachol. 19.Restoril. 20.Zanaflex. PHYSICAL EXAMINATION: Patient is alert, oriented x3. Pulse is 91, blood pressure 172/84, respiration 18, temperature 97.4, pulse ox 95% on 2 L. HEENT: Conjunctivae normal. Oral mucosa moist. NECK: No jugular venous distention. No carotid bruit. No lymph node enlargement. RESPIRATORY SYSTEM: Breath sounds diminished at the bases. Bilateral scattered rhonchi. Breath sounds are diminished on the right side. ABDOMEN: Soft, obese, non-tender. LEGS: No edema. No swelling. NERVOUS SYSTEM: Higher functions as mentioned earlier. Moves all 4 limbs. No focal motor or sensory deficit. LYMPHATICS: No lymph node palpable in neck, axillae or groin. SKIN: No ulcer, rash, bleeding. JOINTS: No active deforming arthropathy. LABS: WBC 8.2, hemoglobin 10.3. Sodium 133, potassium 5.3. ASSESSMENT: 1. Intractable nausea, vomiting, possible acute gastritis, present on admission. 2. Right pleural effusion, loculated, status post pigtail catheter drainage with some air pocket, also. 3. Chronic renal failure, stage IV, on hemodialysis. 4. Hyperkalemia, mild. 5. Diabetes mellitus, type 2, uncontrolled, with hyper- and hypoglycemia. 6. History of diabetic peripheral neuropathy. 7. History of retinopathy. 8. History of gastroesophageal reflux disease. 9. History of gastrointestinal bleed. 10.Hypertension. 11.Hyperlipidemia. 12.History of pneumonia. 13.History of hiatal hernia. 14.History of peptic ulcer disease and gastrointestinal bleed previously. 15.History of methicillin-resistant Staphylococcus aeruginosa. 16.History of ventriculoperitoneal shunt. 17.History of depression. 18.History of pericardial effusion with apparent tamponade and aspiration recently elsewhere. 19.FULL CODE. RECOMMENDATIONS AND DISCUSSION: In this 38-year-old gentleman who presented with multiple complex medical issues, we will monitor the patient closely, continue the current medications, continue symptomatic treatment, continue the hemodialysis as per schedule. Regarding the pigtail catheter, it is still draining bloody fluid at this time. I would recommend cardiothoracic surgery evaluation with Dr. Choudhary. Otherwise, Nephrology is following the patient closely. Guarded prognosis because of multiple complex medical issues. Medication adjusted. Prognosis guarded. Further recommendations to follow. MMODL / IJN: [id number] /
--- NOTE | 2019-03-04 17:31 | P.GSCN ---
History of Present Illness Consult date: 03/04/19 Reason for Consult: Loculated right pleural effusion Requesting physician: Sachin Corey History of present illness: This is a 38-year-old gentleman who is followed by Dr. Trevino on an outpatient basis. 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 On 02/28/2019 the patient was receiving hemodialysis when he developed some nausea and started shaking. He subsequently was transported to [facility] for further workup and evaluation. He denied any complaints of vomiting, fever, cough, chills, pain, diarrhea, constipation or shortness of breath. For further evaluation the patient was subsequently transferred to [facility] for further workup and evaluation. Upon admission to [facility] a chest x-ray was completed which demonstrated bilateral pleural effusions right greater than left. Due to the findings on the chest x-ray Dr. Tarango from pulmonary medicine was consulted for further evaluation and treatment recommendations. An ultrasound of his chest was completed which demonstrated a 12.5 cm loculated right pleural effusion. Dr. Tarango's recommendations were to consult interventional radiology to place a right pleural pigtail catheter. Yesterday 03/03/2019 the patient underwent an ultra sound-guided right pleural pigtail catheter placement. Today in consultation the patient is laying in bed with no acute distress on the cardiac stepdown unit. The right pleural pigtail catheter remains in place evacuating thin serosanguineous drainage and remains on water seal. He is drained around 1 L of fluid since the pigtail catheter placement. Review of Systems A 14 point review of systems was completed and was negative except as mentioned in the HPI. Past Medical History Past Medical History: Asthma, Diabetes Mellitus, Dialysis, Eye Disorder, GERD/Reflux, GI Bleed, Hyperlipidemia, Hypertension, Pneumonia, Renal Disease Additional Past Medical History / Comment(s): IDDM type I, diabetic since he was age 21, DKA, hiatal hernia, R eye retinal detachment with surgery-vision decreased, hemodialysis.The patient is seeing hemodialysis 3 times a week on Sunday, Sunday and Sunday since Oct 2014, and he has an AV fistula in his lower right arm. Other medical problems are chronic anemia, previous history of GI bleed secondary to peptic ulcer disease, volume overload, chronic kidney disease, peripheral vascular disease, osteomyelitis, diabetic foot ulcers and amputations History of Any Multi-Drug Resistant Organisms: MRSA Year Discovered:: 12/20/11 MDRO Source:: Left Foot Past Surgical History: Ventriculoperitoneal Shunt Additional Past Surgical History / Comment(s): renal needle bx, 2008 left great toe amp and 2013 2nd to 5th left foot toes amputated. right chest mediport x2 with removal in 2010 and 2012. right eye retina reattachment sx 03/2015. EGD/colonoscopy. History of pericardial window for cardiac tampanode. Past Anesthesia/Blood Transfusion Reactions: No Reported Reaction Past Psychological History: No Psychological Hx Reported Smoking Status: Never smoker Past Alcohol Use History: None Reported Past Drug Use History: None Reported - Past Family History Mother Family Medical History: Hypertension Father Family Medical History: CVA/TIA, Diabetes Mellitus, Hypertension Additional Family Medical History / Comment(s): Father is at the age of 53yrs from a CVA. Medications and Allergies Home Medications Medication Instructions Recorded Confirmed Type DULoxetine HCL [Cymbalta] 120 mg PO HS 05/22/15 02/28/19 History Pravastatin Sodium [Pravachol] 40 mg PO HS 12/26/15 02/28/19 History ARIPiprazole [Abilify] 10 mg PO HS 09/07/16 02/28/19 History Omeprazole [PriLOSEC] 40 mg PO HS 09/07/16 02/28/19 History hydrALAZINE HCL [Apresoline] 100 mg PO TID #90 tab 07/04/17 02/28/19 Rx Thera M Plus 1 tab PO HS 08/05/18 02/28/19 History tiZANidine [Zanaflex] 2 mg PO Q8HR PRN 08/05/18 02/28/19 History Carvedilol [Coreg] 6.25 mg PO BID 11/14/18 02/28/19 History amLODIPine [Norvasc] 10 mg PO DAILY 11/14/18 02/28/19 History Calcium Acetate [PhosLo] 667 mg PO AC-TID #90 cap 11/15/18 02/28/19 Rx Dicyclomine [Bentyl] 20 mg PO Q6H PRN 02/28/19 02/28/19 History Glucagon Emergency Kit 1 mg IM ONCE PRN 02/28/19 02/28/19 History HYDROcodone/APAP 5-325MG [[place] 1 tab PO BID 02/28/19 02/28/19 History 5-325] Insulin Aspart [NovoLOG] 50 unit SQ AC-TID 02/28/19 02/28/19 History Insulin Degludec [Tresiba] 30 unit SQ DAILY 02/28/19 02/28/19 History Loratadine [Claritin] 10 mg PO DAILY 02/28/19 02/28/19 History Ondansetron Odt [Zofran ODT] 4 mg SL Q8HR PRN 02/28/19 02/28/19 History Allergies Allergy/AdvReac Type Severity Reaction Status Date / Time acetaminophen [From Tylenol] Allergy Unknown Verified 02/28/19 17:38 lisinopril Allergy Unknown Verified 02/28/19 17:38 atorvastatin calcium AdvReac Nausea & Verified 02/28/19 17:38 [From Lipitor] Vomiting losartan potassium AdvReac Nausea & Verified 02/28/19 17:38 [From Cozaar] Vomiting tramadol AdvReac drowsiness Verified 02/28/19 17:38 Surgical - Exam Vital Signs Temp Pulse Resp BP Pulse Ox 98.5 F 98 20 217/107 95 02/28/19 16:22 02/28/19 16:22 02/28/19 16:22 02/28/19 16:22 02/28/19 16:22 - General well nourished, no distress, no pain, chronically ill - Eyes PERRL, normal ocular movement - ENT normal pinna, normal nares, normal mucosa, no hearing loss, no congestion, dentures - Neck no masses, no bruits, trachea midline, no venous distension - Respiratory Lungs sounds essentially clear to his bilateral upper lobes, diminished to his bilateral bases right greater than left. Respirations are symmetrical and nonlabored. Right pigtail catheter in place to water seal. Draining thin serosanguineous drainage with 1.1 L drained since pigtail catheter placement. - Cardiovascular Regular rhythm and rate. S1 and S2 present, negative for S3, gallop or murmur. No edema present. Right forearm AV fistula in place with good thrill and bruit. - Abdomen Abdomen is soft, nontender and nondistended. Active bowel sounds all 4 abdominal quadrants. No guarding or rigidity. No organomegaly. - Genitourinary deferred - Rectum deferred - Integumentary no rash, no growths, no abnormal pigmentation - Neurologic normal coordination, normal sensation - Musculoskeletal normal gait, normal posture - Psychiatric oriented to time, oriented to person, oriented to place, speech is normal, memory intact Results - Labs 03/04/19 06:23 03/04/19 06:23 Abnormal Lab Results - Last 24 Hours (Table) 03/03/19 03/03/19 03/04/19 Range/Units 17:14 20:39 06:23 RBC 4.00 L (4.30-5.90) m/uL Hgb 10.3 L (13.0-17.5) gm/dL Hct 34.0 L (39.0-53.0) % MCHC 30.3 L (31.0-37.0) g/dL RDW 17.0 H (11.5-15.5) % Sodium (137-145) mmol/L Potassium (3.5-5.1) mmol/L Chloride (98-107) mmol/L BUN (9-20) mg/dL Creatinine (0.66-1.25) mg/dL Glucose (74-99) mg/dL POC Glucose (mg/dL) 294 H 317 H (75-99) mg/dL 03/04/19 03/04/19 03/04/19 Range/Units 06:23 06:45 12:14 RBC (4.30-5.90) m/uL Hgb (13.0-17.5) gm/dL Hct (39.0-53.0) % MCHC (31.0-37.0) g/dL RDW (11.5-15.5) % Sodium 133 L (137-145) mmol/L Potassium 5.3 H (3.5-5.1) mmol/L Chloride 94 L (98-107) mmol/L BUN 39 H (9-20) mg/dL Creatinine 5.86 H (0.66-1.25) mg/dL Glucose 175 H (74-99) mg/dL POC Glucose (mg/dL) 160 H 212 H (75-99) mg/dL Microbiology - Last 24 Hours (Table) 03/03/19 16:13 Gram Stain - Preliminary Pleural Fluid Body Fluid Culture - Preliminary Diabetes panel 03/04/19 Range/Units 06:23 Sodium 133 L (137-145) mmol/L Potassium 5.3 H (3.5-5.1) mmol/L Chloride 94 L (98-107) mmol/L Carbon Dioxide 27 (22-30) mmol/L BUN 39 H (9-20) mg/dL Creatinine 5.86 H (0.66-1.25) mg/dL Glucose 175 H (74-99) mg/dL Calcium 8.9 (8.4-10.2) mg/dL Calcium panel 03/04/19 Range/Units 06:23 Calcium 8.9 (8.4-10.2) mg/dL Pituitary panel 03/04/19 Range/Units 06:23 Sodium 133 L (137-145) mmol/L Potassium 5.3 H (3.5-5.1) mmol/L Chloride 94 L (98-107) mmol/L Carbon Dioxide 27 (22-30) mmol/L BUN 39 H (9-20) mg/dL Creatinine 5.86 H (0.66-1.25) mg/dL Glucose 175 H (74-99) mg/dL Calcium 8.9 (8.4-10.2) mg/dL Adrenal panel 03/04/19 Range/Units 06:23 Sodium 133 L (137-145) mmol/L Potassium 5.3 H (3.5-5.1) mmol/L Chloride 94 L (98-107) mmol/L Carbon Dioxide 27 (22-30) mmol/L BUN 39 H (9-20) mg/dL Creatinine 5.86 H (0.66-1.25) mg/dL Glucose 175 H (74-99) mg/dL Calcium 8.9 (8.4-10.2) mg/dL - Imaging Chest x-ray: report reviewed, image reviewed CT scan - chest: report reviewed, image reviewed Additional studies: ultrasound of the chest results reviewed. Assessment and Plan Assessment: 1. Loculated right pleural effusion 2. End-stage renal disease, hemodialysis Sunday and Fridays 3. Diabetes mellitus type 1, noncompliant 4. Diabetic neuropathy 5. Hypertension 6. Hyperlipidemia 7. History of GI bleed 8. Gastroesophageal reflux disease 9. History of pericardial effusion, status post pericardial window 10. History of bilateral pleural effusions, status post thoracentesis Plan: The patient was seen and examined on the cardiac stepdown unit. The patient's chart and diagnostics were reviewed. He was seen and examined by Dr. Min Choudhary. No surgical intervention is warranted at this time. Current recommendations are to instill alteplase 10 mg/100 ml normal saline per his pigtail catheter over the next few days. Dr. Choudhary discussed the possibilities if the alteplase is unsuccessful that he may need a decortication surgery. Pulmonary management recommendations per Dr. Corey. Medical management recommendations per primary care service. More recommendations to follow based on patient's clinical course. We will order an incentive spirometry and encourage use every hour while awake. Thank you Dr. Lopez in for this consult and we'll look forward to working with him the care of your patient. Time with Patient: Greater than 30
[2019-03-04 20:53] LABS: Glucose,Whole Blood 309 mg/dL (75-99)
[2019-03-04] MEDS: PRAVASTATIN SODIUM 40 MG TAB PO SCH (21:30)
[2019-03-04] MEDS: DULoxetine HCL 60 MG CAPSULE.DR PO SCH (21:31)
[2019-03-04] MEDS: MULTIVITAMINS, THERA 1 EACH TAB PO SCH (21:31)
[2019-03-04] MEDS: ARIPiprazole 10 MG TAB PO SCH (21:32)
[2019-03-04] MEDS: INSULIN DETEMIR (LEVEMIR) 100 UNIT/ML SYR SQ SCH (21:32)
[2019-03-05] MEDS ORDERED: hydrALAZINE HCL 20 MG/ML 1 ML VIAL ONE (00:10)
[2019-03-05] MEDS ORDERED: HYDROcodone/APAP 5-325MG 1 EACH TAB ONE (00:10)
[2019-03-05] MEDS: METOCLOPRAMIDE 5 MG/ML 2 ML VIAL IVP SCH ×4 (02:00→20:20)
[2019-03-05 06:34] LABS: Glucose,Whole Blood 207 mg/dL (75-99)
[2019-03-05] MEDS: CARVEDILOL 6.25 MG TAB PO SCH (07:02)
[2019-03-05] MEDS: INSULIN ASPART (NovoLOG) 100 UNIT/ML VIAL SQ SCH ×3 (07:02→17:24)
[2019-03-05] MEDS: CALCIUM ACETATE 667 MG CAP PO SCH ×3 (07:02→17:25)
[2019-03-05] MEDS: PANTOPRAZOLE 40 MG TABLET PO SCH ×2 (07:02→17:25)
[2019-03-05 07:09] LABS: Anisocytosis Slight; Basophils # (A) 0.1 k/uL (0-0.2); Basophils % (A) 1 %; Eosinophils # (A) 0.6 k/uL (0-0.7); Eosinophils % (A) 7 %; HCT 37.2 % (39.0-53.0); HGB 11.1 gm/dL (13.0-17.5); Hypochromasia Moderate; Lymphocytes # (A) 1.4 k/uL (1.0-4.8); Lymphocytes % (A) 16 %; MCH 25.4 pg (25.0-35.0); MCHC 29.7 g/dL (31.0-37.0); MCV 85.7 fL (80.0-100.0); Mean Platelet Volume 7.7; Monocytes # (A) 0.6 k/uL (0-1.0); Monocytes % (A) 7 %; Neutrophils # (A) 5.9 k/uL (1.3-7.7); Neutrophils % (A) 69 %; Platelet Count 307 k/uL (150-450); RBC 4.34 m/uL (4.30-5.90); RDW 16.9 % (11.5-15.5); WBC 8.5 k/uL (3.8-10.6)
[2019-03-05] MEDS ORDERED: ALTEPLASE 10 MG in SODIUM CHLORIDE 0.9% 100 ML IRRIGATION ONE (07:36)
[2019-03-05] MEDS: hydrALAZINE HCL 50 MG TAB PO SCH ×4 (07:42→21:39)
[2019-03-05] MEDS: amLODIPine 10 MG TAB PO SCH (07:42)
[2019-03-05] MEDS: LORATADINE 10 MG TAB PO SCH (07:42)
[2019-03-05] MEDS: HYDROcodone/APAP 5-325MG 1 EACH TAB PO PRN ×3 (07:43→20:19)
[2019-03-05 07:58] LABS: Anisocytosis Slight; Basophils # (A) 0.1 k/uL (0-0.2); Basophils % (A) 1 %; Eosinophils # (A) 0.5 k/uL (0-0.7); Eosinophils % (A) 5 %; HCT 36.6 % (39.0-53.0); Hypochromasia Marked; Lymphocytes # (A) 1.1 k/uL (1.0-4.8); Lymphocytes % (A) 11 %; MCH 25.8 pg (25.0-35.0); MCV 85.9 fL (80.0-100.0); Mean Platelet Volume 8.1; Monocytes # (A) 0.7 k/uL (0-1.0); Monocytes % (A) 8 %; Neutrophils # (A) 7.3 k/uL (1.3-7.7); Neutrophils % (A) 74 %; Platelet Count 304 k/uL (150-450); RBC 4.27 m/uL (4.30-5.90); RDW 16.8 % (11.5-15.5)
[2019-03-05 08:04] LABS: Calcium 9.2 mg/dL (8.4-10.2)
--- NOTE | 2019-03-05 08:42 | XR ---
EXAMINATION TYPE: XR chest 1V portable DATE OF EXAM: 03/05/2019 Comparison: 03/03/[address] 03/04/2019 Clinical History: 38-year-old male LARGE VOLUME OUTPUT IN CHEST TUBE Findings: Heart mildly enlarged. Continued moderate right and small left pleural effusions with bibasilar opaci ties. Basilar pigtail pleural catheter remains on the right with evacuation of some of the pleural ef fusion. A loculated pneumothorax is now demonstrated here. Is adjacent pleural/subpleural thickening. Impression: 1. Moderate right and small left pleural effusions with adjacent atelectasis and/or consolidation, so me improvement in the effusion on the right secondary to pigtail pleural catheter. 2. However, there is now a loculated hydropneumothorax component on the right. We note this to be rel atively stable to the CT of 03/04/2019. Further clinical correlation recommended as to the etiology of the pleural/subpleural thickening at this site.
[2019-03-05 09:33] LABS: C Reactive Protein 60.5 mg/L (<10.0)
[2019-03-05] MEDS: HYDROmorphone 0.5 MG/0.5 ML SYRINGE IVP PRN ×3 (10:13→22:02)
--- NOTE | 2019-03-05 10:47 | P.PN ---
Subjective Progress Note Date: 03/05/19 Principal diagnosis: Loculated right pleural effusion, history of end-stage renal disease, hemodialysis Sunday and Fridays, diabetes mellitus type 1 noncompliant, diabetic neuropathy, hypertension, hyperlipidemia, history of GI bleed, gastroesophageal reflux disease, history of pericardial effusion status post pericardial window, history of bilateral pleural effusions status post thoracentesis. POD #2 placement of right pleural pigtail catheter by interventional radiology. The patient is laying in bed on a cardiac stepdown unit. He is in no acute distress. Denies any complaints of pain or shortness of breath at this time. He is receiving a hemodialysis treatment. Right pleural pigtail catheter remains in place to water seal. No air leak is present. 1000 mL of thin serosanguineous drainage drained from the pigtail catheter last 24 hours. The patient received 1 dose of alteplase pleural instillation 10 mg/100 mL yesterday 1. Oxygen saturations are 100% on 2 L nasal cannula. Achieving 1000 mL on his incentive spirometry. Objective - Vital Signs Vital signs: Vital Signs Temp 98.5 F 03/05/19 07:53 Pulse 92 03/05/19 07:53 Resp 16 03/05/19 07:53 BP 168/87 03/05/19 07:53 Pulse Ox 93 L 03/05/19 07:53 Intake & Output 03/04/19 03/05/19 03/05/19 18:59 06:59 18:59 Intake Total 1440 120 Output Total 280 750 Balance 1160 -750 120 Weight 88.5 kg Intake: Oral 1440 120 Output: Chest Tube Drainage 280 750 Chest Tube Right 280 750 Other: Voiding Method Urinal Urinal Toilet Urinal - Constitutional General appearance: Present: cooperative, no acute distress - Respiratory Details: Lungs sounds essentially clear throughout, diminished to his right lower lobe. Respirations are symmetrical and nonlabored. Oxygen saturation are 100% on 2 L nasal cannula. Achieving 1000 mL on his incentive spirometry. Right pleural pigtail catheter in place to water seal. No air leak is present. Draining thin serosanguineous drainage with 1000 mL output in the last 24 hours. - Cardiovascular Details: Regular rhythm and rate. S1 and S2 present, negative for S3, gallop or murmur. Remote telemetry showing normal sinus rhythm heart rate 89. No edema present. - Gastrointestinal Gastrointestinal Comment(s): Abdomen is soft, nontender and nondistended. Active bowel sounds all 4 abdominal quadrants. No guarding or rigidity. No organomegaly. - Genitourinary Genitourinary Comment(s): Anuric, receiving hemodialysis treatment. Right arm AV fistula with good thrill and bruit. - Integumentary Integumentary Comment(s): Skin is warm and dry. No clubbing or cyanosis is present. No rash or abnormal pigmentation is present. Right pleural pigtail catheter dressing clean, dry and intact. - Neurologic Neurologic: Present: CNII-XII intact - Musculoskeletal Musculoskeletal: Present: gait normal, generalized weakness, strength equal bilaterally - Psychiatric Psychiatric Comment(s): Flat affect. Psychiatric: Present: appropriate affect, intact judgment & insight - Allied health notes Allied health notes reviewed: nursing - Labs CBC & Chem 7: 03/05/19 06:27 03/05/19 06: Labs: Abnormal Lab Results - Last 24 Hours (Table) 03/04/19 03/04/19 03/04/19 Range/Units 12:14 17:01 20:52 RBC (4.30-5.90) m/uL Hgb (13.0-17.5) gm/dL Hct (39.0-53.0) % MCHC (31.0-37.0) g/dL RDW (11.5-15.5) % Sodium (137-145) mmol/L Potassium (3.5-5.1) mmol/L Chloride (98-107) mmol/L BUN (9-20) mg/dL Creatinine (0.66-1.25) mg/dL Glucose (74-99) mg/dL POC Glucose (mg/dL) 212 H 277 H 309 H (75-99) mg/dL C-Reactive Protein (<10.0) mg/L 03/05/19 03/05/19 03/05/19 Range/Units 02:52 06:27 06: RBC 4.27 L (4.30-5.90) m/uL Hgb 11.1 L 11.0 L (13.0-17.5) gm/dL Hct 37.2 L 36.6 L (39.0-53.0) % MCHC 29.7 L 30.0 L (31.0-37.0) g/dL RDW 16.9 H 16.8 H (11.5-15.5) % Sodium 133 L (137-145) mmol/L Potassium 6.0 H (3.5-5.1) mmol/L Chloride 93 L (98-107) mmol/L BUN 62 H (9-20) mg/dL Creatinine 7.54 H* (0.66-1.25) mg/dL Glucose 215 H (74-99) mg/dL POC Glucose (mg/dL) (75-99) mg/dL C-Reactive Protein 60.5 H (<10.0) mg/L 03/05/19 Range/Units 06:32 RBC (4.30-5.90) m/uL Hgb (13.0-17.5) gm/dL Hct (39.0-53.0) % MCHC (31.0-37.0) g/dL RDW (11.5-15.5) % Sodium (137-145) mmol/L Potassium (3.5-5.1) mmol/L Chloride (98-107) mmol/L BUN (9-20) mg/dL Creatinine (0.66-1.25) mg/dL Glucose (74-99) mg/dL POC Glucose (mg/dL) 207 H (75-99) mg/dL C-Reactive Protein (<10.0) mg/L Microbiology - Last 24 Hours (Table) 03/03/19 16:13 Gram Stain - Preliminary Pleural Fluid Body Fluid Culture - Preliminary - Imaging and Cardiology Chest x-ray: report reviewed, image reviewed Assessment and Plan Assessment: 1. Loculated right pleural effusion 2. End-stage renal disease, hemodialysis Sunday and Fridays 3. Diabetes mellitus type 1, noncompliant 4. Diabetic neuropathy 5. Hypertension 6. Hyperlipidemia 7. History of GI bleed 8. Gastroesophageal reflux disease 9. History of pericardial effusion, status post pericardial window 10. History of bilateral pleural effusions, status post thoracentesis Plan: 1. We will instill alteplase 10 mg/100 mL normal saline today through the right pigtail catheter. This will be the second dose instilled. 2. Keep the right pleural pigtail catheter in place to waterseal. 3. Medical management and diabetic management per primary care recommendations. 4. Encourage use of his incentive spirometry every hour while awake. 5. Increase activity as tolerated. Physical and occupational therapy consulted. 6. We will review his daily chest x-rays. 7. Hemodialysis management per nephrology. 8. More recommendations to follow based on patient's clinical course. Time with Patient: Greater than 30
--- NOTE | 2019-03-05 11:44 | XR ---
EXAMINATION TYPE: XR chest 1V portable DATE OF EXAM: 03/05/2019 COMPARISON: Prior chest x-ray same dated earlier time. HISTORY: Loculated pleural effusion, chest tube TECHNIQUE: Single frontal view of the chest is obtained. FINDINGS: Chest tube again noted at the right lung base laterally. Triathlon is again seen. There is persistent abnormal density at the right lung base. Blunting of the left costophrenic angle is again seen. The heart remains enlarged. IMPRESSION: Trapped lung, consider decortication.
--- NOTE | 2019-03-05 11:49 | P.PN ---
Subjective Patient is seen in follow-up for end-stage renal disease. He is maintained on hemodialysis on Sunday schedule. Denies nausea or vomiting. No diarrhea. Oral intake is good. He was noted to have a loculated pleural effusion and had a chest tube placed on March 03. Denies active chest pain or shortness of breath. Currently seen while undergoing hemodialysis. Vital signs are stable. General: The patient appeared well nourished and normally developed. HEENT: Head exam is unremarkable. Neck is without jugular venous distension. LUNGS: Lungs are clear to auscultation and percussion. Breath sounds decreased. Chest tube noted. HEART: Rate and Rhythm are regular. First and second heart sounds normal. No murmurs, rubs or gallops. ABDOMEN: Abdominal exam reveals normal bowel sounds. Non-tender and non- distended. No evidence of peritonitis. EXTREMITITES: No clubbing, cyanosis, or edema. Objective - Vital Signs Vital signs: Vital Signs Temp 98.5 F 03/05/19 07:53 Pulse 92 03/05/19 07:53 Resp 16 03/05/19 11:35 BP 168/87 03/05/19 07:53 Pulse Ox 93 L 03/05/19 07:53 Intake & Output 03/04/19 03/05/19 03/05/19 18:59 06:59 18:59 Intake Total 1440 120 Output Total 280 750 Balance 1160 -750 120 Weight 88.5 kg Intake: Oral 1440 120 Output: Chest Tube Drainage 280 750 Chest Tube Right 280 750 Other: Voiding Method Urinal Urinal Toilet Urinal - Labs CBC & Chem 7: 03/05/19 06:27 03/05/19 06:27 Labs: Abnormal Lab Results - Last 24 Hours (Table) 03/04/19 03/04/19 03/04/19 Range/Units 12:14 17:01 20:52 RBC (4.30-5.90) m/uL Hgb (13.0-17.5) gm/dL Hct (39.0-53.0) % MCHC (31.0-37.0) g/dL RDW (11.5-15.5) % Sodium (137-145) mmol/L Potassium (3.5-5.1) mmol/L Chloride (98-107) mmol/L BUN (9-20) mg/dL Creatinine (0.66-1.25) mg/dL Glucose (74-99) mg/dL POC Glucose (mg/dL) 212 H 277 H 309 H (75-99) mg/dL C-Reactive Protein (<10.0) mg/L 03/05/19 03/05/19 03/05/19 Range/Units 02:52 06:27 06:27 RBC 4.27 L (4.30-5.90) m/uL Hgb 11.1 L 11.0 L (13.0-17.5) gm/dL Hct 37.2 L 36.6 L (39.0-53.0) % MCHC 29.7 L 30.0 L (31.0-37.0) g/dL RDW 16.9 H 16.8 H (11.5-15.5) % Sodium 133 L (137-145) mmol/L Potassium 6.0 H (3.5-5.1) mmol/L Chloride 93 L (98-107) mmol/L BUN 62 H (9-20) mg/dL Creatinine 7.54 H* (0.66-1.25) mg/dL Glucose 215 H (74-99) mg/dL POC Glucose (mg/dL) (75-99) mg/dL C-Reactive Protein 60.5 H (<10.0) mg/L 03/05/19 Range/Units 06:32 RBC (4.30-5.90) m/uL Hgb (13.0-17.5) gm/dL Hct (39.0-53.0) % MCHC (31.0-37.0) g/dL RDW (11.5-15.5) % Sodium (137-145) mmol/L Potassium (3.5-5.1) mmol/L Chloride (98-107) mmol/L BUN (9-20) mg/dL Creatinine (0.66-1.25) mg/dL Glucose (74-99) mg/dL POC Glucose (mg/dL) 207 H (75-99) mg/dL C-Reactive Protein (<10.0) mg/L Microbiology - Last 24 Hours (Table) 03/03/19 16:13 Gram Stain - Preliminary Pleural Fluid Body Fluid Culture - Preliminary Assessment and Plan Plan: Assessment: 1. End-stage renal disease maintained on hemodialysis on a Sunday schedule. 2. Hyperkalemia secondary to chronic kidney disease. Expect improvement postdialysis. 3. Hypertension with chronic kidney disease. 4. Chronic kidney disease mineral bone disease maintained on PhosLo. 5. Insulin-dependent diabetes mellitus. 6. Nausea and vomiting. Possibly gastroenteritis versus gastroparesis. Resolved. 7. Loculated pleural effusion status post chest tube insertion in March 03. Plan: Currently seen while undergoing hemodialysis. Next treatment on Sunday. Increase frequency of hydralazine to 4 times daily.
[2019-03-05 12:20] LABS: Glucose,Whole Blood 187 mg/dL (75-99)
--- NOTE | 2019-03-05 15:35 | PN ---
PROGRESS NOTE DATE OF SERVICE: 03/05/2019 This is a 38-year-old gentleman who was admitted with intractable nausea and vomiting, also had right pleural effusion. The patient had pigtail catheter drainage. The patient also had significant air trapping. The patient was given tPA by Cardiothoracic Surgery. Most recent chest x-ray which was reviewed personally by me still showed some air there and the patient is also receiving hemodialysis today. The patient received alteplase 10 mg yesterday. Oxygen saturations improving at this time. PAST MEDICAL HISTORY: Reviewed. REVIEW OF SYSTEMS: CARDIOVASCULAR: No angina. RESPIRATION: As mentioned earlier. GI: No nausea. : As mentioned earlier. CURRENT MEDICATIONS: Reviewed and include: 1. [place] 5 mg q.6 p.r.n. 2. Xanax 0.5 t.i.d. 3. Norvasc 10 mg daily. 4. Abilify 10 mg q.h.s. 5. PhosLo 667 t.i.d. 6. Coreg 6.25 mg b.i.d. 7. Bentyl 20 mg q.6 p.r.n. 8. Cymbalta 120 mg q.h.s. 9. Apresoline 10 mg q.6 p.r.n. 10.Dilaudid 0.5 mg q.6 p.r.n. 11.NovoLog scale. 12.Levemir 10 units subcu q.h.s. 13.Claritin 10 mg p.o. daily. 14.Reglan 5 mg q.6 p.r.n. 15.Multivitamin. 16.Zofran. 17.Protonix. 18.Pravachol. 19.Restoril 50 mg q.h.s. 20.Zanaflex 2 mg p.o. q.8 p.r.n. PHYSICAL EXAM: Patient is alert and oriented x3. Pulse is 89, blood pressure 168/92, respirations 16, temperature 98.2, pulse ox 94% on 2 L. HEENT: Conjunctivae normal. NECK: No jugular venous distension. CARDIOVASCULAR SYSTEM: S1, S2, muffled. RESPIRATION: Breath sounds diminished at the bases, a few scattered rhonchi, no crackles. Breath sounds are markedly diminished on the right side, chest tube drainage present. ABDOMEN: Soft, nontender. No mass palpable. LEGS: No edema, no swelling. NERVOUS SYSTEM: Higher functions as mentioned earlier, moves all 4 limbs. No focal motor or sensory deficit. LYMPHATICS: No lymph node enlargement in the neck or axilla. SKIN: No ulcer, rash or bleeding. JOINTS: No deforming arthropathy. LABS: WBC is 10, hemoglobin is 11, sodium 130, potassium 6, Accu-Cheeks noted. C-reactive protein is 60.5. ASSESSMENT: 1. Intractable nausea, vomiting, possible acute gastritis, present on admission. 2. Right pleural effusion, possibly loculated, status post pigtail catheter drainage of some air pockets, status post alteplase. 3. Chronic renal failure stage IV, on hemodialysis. 4. Hyperkalemia, mild. 5. Diabetes type 2, uncontrolled with hyper- and hypoglycemia. 6. History of diabetic peripheral neuropathy. 7. History of retinopathy. 8. Hypertension. 9. Gastroesophageal reflux disease. 10.Gastrointestinal bleed. 11.Hyperlipidemia. 12.History of pneumonia. 13.History of hiatal hernia. 14.History of peptic ulcer disease and gastrointestinal bleed, previously. 15.History of methicillin-resistant Staphylococcus aureus. 16.History of [employer] shunt. 17.History of depression. 18.History of pericardial effusion with apparent tamponade and aspiration recently elsewhere. 19.FULL CODE. RECOMMENDATION: Recommend to continue with current management and symptomatic treatment, alteplase was given. Closely follow with Cardiothoracic Surgery. Patient also had hypokalemia. Patient underwent hemodialysis at this time, then possibly with low potassium bath. Otherwise, the chest x-ray was reviewed. Guarded prognosis. Further recommendations to follow. Discussed with the patient. Will adjust the blood pressure medications. See orders for details. Prognosis guarded. The patient has chest tube drainage. MMODL / IJN: [id number] /
[2019-03-05 17:13] LABS: Glucose,Whole Blood 288 mg/dL (75-99)
[2019-03-05] MEDS: CARVEDILOL 12.5 MG TAB PO SCH (17:25)
[2019-03-05] MEDS: cloNIDine HCL 0.1 MG TAB PO SCH ×2 (17:25→21:39)
[2019-03-05] MEDS: SODIUM CHLORIDE 0.9% 1,000 ML IV SCH (17:31)
[2019-03-05] MEDS: PRAVASTATIN SODIUM 40 MG TAB PO SCH (20:19)
[2019-03-05] MEDS: ARIPiprazole 10 MG TAB PO SCH (20:20)
[2019-03-05] MEDS: MULTIVITAMINS, THERA 1 EACH TAB PO SCH (20:20)
[2019-03-05] MEDS: DULoxetine HCL 60 MG CAPSULE.DR PO SCH (20:20)
[2019-03-05 20:50] LABS: Glucose,Whole Blood 315 mg/dL (75-99)
[2019-03-05] MEDS: INSULIN DETEMIR (LEVEMIR) 100 UNIT/ML SYR SQ SCH (21:01)
[2019-03-06] MEDS: HYDROcodone/APAP 5-325MG 1 EACH TAB PO PRN ×3 (02:08→18:12)
[2019-03-06] MEDS: METOCLOPRAMIDE 5 MG/ML 2 ML VIAL IVP SCH ×4 (02:09→20:25)
[2019-03-06] MEDS: HYDROmorphone 0.5 MG/0.5 ML SYRINGE IVP PRN ×4 (04:03→21:34)
[2019-03-06 06:42] LABS: Glucose,Whole Blood 284 mg/dL (75-99)
[2019-03-06] MEDS: PANTOPRAZOLE 40 MG TABLET PO SCH ×2 (06:56→17:22)
[2019-03-06] MEDS: CARVEDILOL 12.5 MG TAB PO SCH ×2 (06:56→17:21)
[2019-03-06] MEDS: CALCIUM ACETATE 667 MG CAP PO SCH ×3 (06:56→17:22)
[2019-03-06] MEDS: INSULIN ASPART (NovoLOG) 100 UNIT/ML VIAL SQ SCH ×3 (06:56→17:22)
[2019-03-06 07:05] LABS: Anisocytosis Slight; Basophils # (A) 0.1 k/uL (0-0.2); Basophils % (A) 1 %; Eosinophils # (A) 0.5 k/uL (0-0.7); Eosinophils % (A) 5 %; HCT 37.8 % (39.0-53.0); HGB 11.2 gm/dL (13.0-17.5); Hypochromasia Moderate; Lymphocytes # (A) 1.2 k/uL (1.0-4.8); Lymphocytes % (A) 13 %; MCH 25.7 pg (25.0-35.0); MCHC 29.6 g/dL (31.0-37.0); MCV 86.6 fL (80.0-100.0); Mean Platelet Volume 7.3; Monocytes # (A) 0.8 k/uL (0-1.0); Monocytes % (A) 8 %; Neutrophils # (A) 6.4 k/uL (1.3-7.7); Neutrophils % (A) 70 %; Platelet Count 322 k/uL (150-450); RBC 4.36 m/uL (4.30-5.90); RDW 16.8 % (11.5-15.5)
[2019-03-06 07:15] LABS: Potassium 5.7 mmol/L (3.5-5.1)
--- NOTE | 2019-03-06 07:50 | XR ---
EXAMINATION TYPE: XR chest 1V portable DATE OF EXAM: 03/06/2019 COMPARISON: Prior chest x-ray 03/05/2019 HISTORY: Loculated pleural effusion, trapped lung TECHNIQUE: Single frontal view of the chest is obtained. FINDINGS: Findings are similar to previous exam. There is blunting the left costophrenic angle. Righ t-sided chest tubes noted within pleural space with localized pneumothorax, trapped lung. Parenchymal density at the right lung base persists. Heart remains enlarged. IMPRESSION: There is no significant interval change.
[2019-03-06] MEDS: cloNIDine HCL 0.1 MG TAB PO SCH ×3 (09:46→21:45)
[2019-03-06] MEDS: amLODIPine 10 MG TAB PO SCH (09:46)
[2019-03-06] MEDS: hydrALAZINE HCL 50 MG TAB PO SCH ×4 (09:47→21:45)
[2019-03-06] MEDS: LORATADINE 10 MG TAB PO SCH (09:47)
[2019-03-06 11:45] VITALS: BMI 24.2
[2019-03-06] MEDS ORDERED: DEXTROSE 50% SYRINGE 50 ML IVP STA ×2 (11:52→21:03)
[2019-03-06] MEDS ORDERED: INSULIN REGULAR 100 UNIT/ML VIAL IV ONE ×2 (11:52→21:03)
--- NOTE | 2019-03-06 11:53 | P.PN ---
Subjective Patient is seen in follow-up for end-stage renal disease. He is maintained on hemodialysis on Sunday schedule. Denies nausea or vomiting. No diarrhea. Oral intake is good. He was noted to have a loculated pleural effusion and had a chest tube placed on March 03. Denies active chest pain or shortness of breath. Tolerated hemodialysis well yesterday. No active complaints at this time. Vital signs are stable. General: The patient appeared well nourished and normally developed. HEENT: Head exam is unremarkable. Neck is without jugular venous distension. LUNGS: Lungs are clear to auscultation and percussion. Breath sounds decreased. Chest tube noted. HEART: Rate and Rhythm are regular. First and second heart sounds normal. No murmurs, rubs or gallops. ABDOMEN: Abdominal exam reveals normal bowel sounds. Non-tender and non- distended. No evidence of peritonitis. EXTREMITITES: No clubbing, cyanosis, or edema. Objective - Vital Signs Vital signs: Vital Signs Temp 99.2 F 03/06/19 09:10 Pulse 79 03/06/19 09:10 Resp 18 03/06/19 09:10 BP 140/84 03/06/19 09:10 Pulse Ox 91 L 03/06/19 09:10 Intake & Output 03/05/19 03/06/19 03/06/19 18:59 06:59 18:59 Intake Total 480 300 716 Output Total 4850 710 100 Balance -4370 -410 616 Weight 85.5 kg 85.5 kg Intake: Oral 480 300 716 Output: Chest Tube Drainage 850 710 100 Chest Tube Right 850 710 100 Hemodialysis 4000 Other: Voiding Method Toilet Toilet Toilet Urinal Urinal Urinal # Voids 0 - Labs CBC & Chem 7: 03/06/19 06:47 03/06/19 06:47 Labs: Abnormal Lab Results - Last 24 Hours (Table) 03/05/19 03/05/19 03/05/19 Range/Units 12:06 17:11 20:48 Hgb (13.0-17.5) gm/dL Hct (39.0-53.0) % MCHC (31.0-37.0) g/dL RDW (11.5-15.5) % Sodium (137-145) mmol/L Potassium (3.5-5.1) mmol/L Chloride (98-107) mmol/L BUN (9-20) mg/dL Creatinine (0.66-1.25) mg/dL Glucose (74-99) mg/dL POC Glucose (mg/dL) 187 H 288 H 315 H (75-99) mg/dL 03/06/19 03/06/19 03/06/19 Range/Units 06:39 06:47 06:47 Hgb 11.2 L (13.0-17.5) gm/dL Hct 37.8 L (39.0-53.0) % MCHC 29.6 L (31.0-37.0) g/dL RDW 16.8 H (11.5-15.5) % Sodium 133 L (137-145) mmol/L Potassium 5.7 H (3.5-5.1) mmol/L Chloride 96 L (98-107) mmol/L BUN 46 H (9-20) mg/dL Creatinine 5.44 H (0.66-1.25) mg/dL Glucose 297 H (74-99) mg/dL POC Glucose (mg/dL) 284 H (75-99) mg/dL Microbiology - Last 24 Hours (Table) 03/03/19 16:13 Gram Stain - Preliminary Pleural Fluid Body Fluid Culture - Preliminary Assessment and Plan Plan: Assessment: 1. End-stage renal disease maintained on hemodialysis on a Sunday schedule. 2. Hyperkalemia secondary to chronic kidney disease and hyperglycemia. 3. Hypertension with chronic kidney disease. Stable. 4. Chronic kidney disease mineral bone disease maintained on PhosLo. 5. Insulin-dependent diabetes mellitus. 6. Nausea and vomiting. Possibly gastroenteritis versus gastroparesis. Resolved. 7. Loculated pleural effusion status post chest tube insertion in March 03. Plan: Hemodialysis tomorrow. Maintain current antihypertensives. 10 units of IV insulin now with half an amp of D50. Repeat potassium level this evening.
[2019-03-06 12:01] LABS: Glucose,Whole Blood 335 mg/dL (75-99)
--- NOTE | 2019-03-06 12:08 | P.PN ---
Subjective Progress Note Date: 03/06/19 Principal diagnosis: Loculated right pleural effusion, history of end-stage renal disease, hemodialysis Sunday and Fridays, diabetes mellitus type 1 noncompliant, diabetic neuropathy, hypertension, hyperlipidemia, history of GI bleed, gastroesophageal reflux disease, history of pericardial effusion status post pericardial window, history of bilateral pleural effusions status post thoracentesis. POD #3 placement of right pleural pigtail catheter by interventional radiology. The patient is laying in bed on a cardiac stepdown unit. He is in no acute distress. Denies any complaints of pain or shortness of breath at this time. The patient's mother is present at his bedside. Right pleural pigtail catheter remains in place to water seal. No air leak is present. 1500 mL of thin serosanguineous drainage drained from the pigtail catheter last 24 hours. The patient received 1 dose of alteplase pleural instillation 10 mg/100 mL yesterday 1 and 1 dose on 03/04/2018. Oxygen saturations are 91% on room air. Achieving 1000 mL on his incentive spirometry. The patient had a hemodialysis treatment yesterday with 4.5 L of fluid removed. The patient has a flat affect this morning and reports that he feels kind of down in the dumps as he has a couple family gatherings this weekend that he is going to miss. Objective - Vital Signs Vital signs: Vital Signs Temp 99.2 F 03/06/19 09:10 Pulse 79 03/06/19 09:10 Resp 18 03/06/19 09:10 BP 140/84 03/06/19 09:10 Pulse Ox 91 L 03/06/19 09:10 Intake & Output 03/05/19 03/06/19 03/06/19 18:59 06:59 18:59 Intake Total 480 300 716 Output Total 4850 710 100 Balance -4370 -410 616 Weight 85.5 kg 85.5 kg Intake: Oral 480 300 716 Output: Chest Tube Drainage 850 710 100 Chest Tube Right 850 710 100 Hemodialysis 4000 Other: Voiding Method Toilet Toilet Toilet Urinal Urinal Urinal # Voids 0 - Constitutional General appearance: Present: cooperative, no acute distress - Respiratory Details: Lungs sounds essentially clear to his left lobes with some few scattered crackles to his left lower lobe, diminished to his right lobes. Respirations are symmetrical and nonlabored. Oxygen saturation are 91% on room air. Achieving 1000 mL on his incentive spirometry. Right pleural pigtail catheter remains in place to waterseal. No air leak is present. Draining thin serosanguineous drainage with 1.5 L of output in the last 24 hours. - Cardiovascular Details: Regular rhythm and rate. S1 and S2 present, negative for S3, gallop or murmur. Remote telemetry showing normal sinus rhythm heart rate 92. No edema present. - Gastrointestinal Gastrointestinal Comment(s): Abdomen soft, nontender and nondistended. Active bowel sounds all 4 abdominal quadrants. No guarding or rigidity. No organomegaly. - Genitourinary Genitourinary Comment(s): Right arm AV fistula with good thrill and bruit. Anuric - Integumentary Integumentary Comment(s): Skin is warm and dry. No clubbing or cyanosis is present. No rash or abnormal pigmentation is present. Right posterior chest pigtail catheter dressing clean, dry and in place. - Neurologic Neurologic: Present: CNII-XII intact - Musculoskeletal Musculoskeletal: Present: gait normal, generalized weakness, strength equal bilaterally - Psychiatric Psychiatric Comment(s): Flat a defect Psychiatric: Present: A&O x's 3, intact judgment & insight - Allied health notes Allied health notes reviewed: nursing - Labs CBC & Chem 7: 03/06/19 06:47 03/06/19 06:47 Labs: Abnormal Lab Results - Last 24 Hours (Table) 03/05/19 03/05/19 03/05/19 Range/Units 12:06 17:11 20:48 Hgb (13.0-17.5) gm/dL Hct (39.0-53.0) % MCHC (31.0-37.0) g/dL RDW (11.5-15.5) % Sodium (137-145) mmol/L Potassium (3.5-5.1) mmol/L Chloride (98-107) mmol/L BUN (9-20) mg/dL Creatinine (0.66-1.25) mg/dL Glucose (74-99) mg/dL POC Glucose (mg/dL) 187 H 288 H 315 H (75-99) mg/dL 03/06/19 03/06/19 03/06/19 Range/Units 06:39 06:47 06:47 Hgb 11.2 L (13.0-17.5) gm/dL Hct 37.8 L (39.0-53.0) % MCHC 29.6 L (31.0-37.0) g/dL RDW 16.8 H (11.5-15.5) % Sodium 133 L (137-145) mmol/L Potassium 5.7 H (3.5-5.1) mmol/L Chloride 96 L (98-107) mmol/L BUN 46 H (9-20) mg/dL Creatinine 5.44 H (0.66-1.25) mg/dL Glucose 297 H (74-99) mg/dL POC Glucose (mg/dL) 284 H (75-99) mg/dL Microbiology - Last 24 Hours (Table) 03/03/19 16:13 Gram Stain - Preliminary Pleural Fluid Body Fluid Culture - Preliminary - Imaging and Cardiology Chest x-ray: report reviewed, image reviewed Assessment and Plan Assessment: 1. Loculated right pleural effusion 2. End-stage renal disease, hemodialysis Sunday and Fridays 3. Diabetes mellitus type 1, noncompliant 4. Diabetic neuropathy 5. Hypertension 6. Hyperlipidemia 7. History of GI bleed 8. Gastroesophageal reflux disease 9. History of pericardial effusion, status post pericardial window 10. History of bilateral pleural effusions, status post thoracentesis Plan: 1. Plan is to keep his right pleural pigtail catheter in place to water seal. The pigtail catheter continues to drain a significant amount of pleural fluid, 1.5 L output in the last 24 hours. 2. per the cardiothoracic surgery standpoint the patient can be discharged home with the pigtail catheter in place and be followed on an outpatient basis. Dr. Ramirez will discuss this with Dr. Corey from pulmonary medicine. 3. Medical management and diabetic management per primary care recommendations. 4. Encourage use of his incentive spirometry every hour while awake. 5. Increase activity as tolerated. Physical and occupational therapy consulted. 6. We will review his daily chest x-rays. 7. Hemodialysis management per nephrology. 8. More recommendations to follow based on patient's clinical course. Time with Patient: Greater than 30
[2019-03-06] MEDS ORDERED: SODIUM POLYSTYRENE SULFONATE 15 GM/60 ML BOTTLE PO STA (15:34)
[2019-03-06 16:51] LABS: Glucose,Whole Blood 232 mg/dL (75-99)
[2019-03-06] MEDS: SODIUM CHLORIDE 0.9% 1,000 ML IV SCH (17:01)
--- NOTE | 2019-03-06 18:14 | PN ---
PROGRESS NOTE DATE OF SERVICE: 03/06/2019 This 38-year-old gentleman who was admitted with intractable nausea and acute gastritis also had right pleural effusion. The patient had chest tube drainage. The patient is being closely monitored at this time. The patient also receives hemodialysis for chronic renal failure. The patient still has some significant drainage at this time. Outpatient pigtail catheter was also being planned by Cardiothoracic Surgery. On exam, alert and oriented x3. Pulse is 85, blood pressure 131/86, respiration 18, temperature 99.2, pulse ox 92% on room air. HEENT: Conjunctivae normal. NECK: No jugular venous distention. CARDIOVASCULAR SYSTEM: S1, S2 muffled. RESPIRATORY SYSTEM: Breath sounds diminished at the bases. A few scattered rhonchi and crackles. ABDOMEN: Soft, non-tender. LEGS: No edema. No swelling. NERVOUS SYSTEM: No focal deficit. LABS: WBC 9, hemoglobin 11.2. Sodium 133, potassium 5.7. ASSESSMENT: 1. Right pleural effusion, possibly loculated, status post pigtail catheter drainage with some air pockets, status post alteplase. 2. Intractable nausea and vomiting; possible acute gastritis, present on admission. 3. Chronic renal failure, stage IV, on hemodialysis. 4. Hyperkalemia, mild. 5. Diabetes mellitus, type 2, uncontrolled, with hyper- and hypoglycemia. 6. History of diabetic peripheral neuropathy. 7. History of retinopathy. 8. Hypertension. 9. History of gastroesophageal reflux disease. 10.Gastrointestinal bleed. 11.Hyperlipidemia. 12.History of pneumonia. 13.History of hiatal hernia. 14.History of peptic ulcer disease with gastrointestinal bleed previously. 15.History of methicillin-resistant Staphylococcus aeruginosa. 16.History of ventriculoperitoneal shunt. 17.History of depression. 18.History of pericardial effusion apparently, and tamponaded aspiration recently elsewhere. 19.FULL CODE. RECOMMENDATIONS AND DISCUSSION: I recommend to continue current medications, continue with the monitoring, symptomatic treatment. I would also recommend PT/OT evaluation. Will recommend Social Work/Case Management to evaluate the patient for any possible ECF rehab if necessary. Otherwise, after clearance from Cardiothoracic Surgery and Pulmonology, the patient might be able to be sent home in the next 24 hours if the patient is stable. Guarded prognosis. Discussed with the staff and Case Management. MMODL / IJN: [id number] /
[2019-03-06 20:35] LABS: Glucose,Whole Blood 191 mg/dL (75-99)
[2019-03-06] MEDS: MULTIVITAMINS, THERA 1 EACH TAB PO SCH (20:45)
[2019-03-06] MEDS: DULoxetine HCL 60 MG CAPSULE.DR PO SCH (20:45)
[2019-03-06] MEDS: ARIPiprazole 10 MG TAB PO SCH (20:45)
[2019-03-06] MEDS: PRAVASTATIN SODIUM 40 MG TAB PO SCH (20:45)
[2019-03-06] MEDS: INSULIN DETEMIR (LEVEMIR) 100 UNIT/ML SYR SQ SCH (20:45)
[2019-03-06] MEDS ORDERED: FUROSEMIDE 10 MG/ML 10 ML VIAL IV STA (21:05)
[2019-03-06 21:58] LABS: Glucose,Whole Blood 237 mg/dL (75-99)
[2019-03-06 23:02] LABS: Glucose,Whole Blood 204 mg/dL (75-99)
[2019-03-07 00:22] VITALS: TEMP 98.9
[2019-03-07] MEDS: HYDROcodone/APAP 5-325MG 1 EACH TAB PO PRN ×3 (01:06→15:37)
[2019-03-07 01:20] LABS: Glucose,Whole Blood 176 mg/dL (75-99)
[2019-03-07] MEDS: METOCLOPRAMIDE 5 MG/ML 2 ML VIAL IVP SCH ×3 (03:25→15:07)
[2019-03-07] MEDS: HYDROmorphone 0.5 MG/0.5 ML SYRINGE IVP PRN ×3 (03:26→15:40)
[2019-03-07 06:32] LABS: Glucose,Whole Blood 147 mg/dL (75-99)
[2019-03-07] MEDS: CARVEDILOL 12.5 MG TAB PO SCH (07:05)
[2019-03-07] MEDS: CALCIUM ACETATE 667 MG CAP PO SCH ×2 (07:05→12:05)
[2019-03-07] MEDS: INSULIN ASPART (NovoLOG) 100 UNIT/ML VIAL SQ SCH ×2 (07:05→12:06)
[2019-03-07] MEDS: PANTOPRAZOLE 40 MG TABLET PO SCH (07:05)
[2019-03-07] MEDS ORDERED: INSULIN ASPART (NovoLOG) 100 UNIT/ML VIAL SQ SCH (07:30)
[2019-03-07] MEDS: amLODIPine 10 MG TAB PO SCH (08:10)
[2019-03-07] MEDS: hydrALAZINE HCL 50 MG TAB PO SCH ×2 (08:11→12:05)
[2019-03-07] MEDS: cloNIDine HCL 0.1 MG TAB PO SCH ×2 (08:11→15:38)
[2019-03-07] MEDS: LORATADINE 10 MG TAB PO SCH (08:11)
--- NOTE | 2019-03-07 08:23 | XR ---
EXAMINATION TYPE: XR chest 1V portable DATE OF EXAM: 03/07/2019 COMPARISON: Prior chest x-ray 03/06/2019 HISTORY: Chest tube TECHNIQUE: Single frontal view of the chest is obtained. FINDINGS: The right-sided pleural drainage catheter and localized pneumothorax, trapped lung with pa renchymal density at the right lung base are all again noted. Heart is enlarged. Minimal patchy densi ty persists at the left lung base. There are overlying cardiac leads. IMPRESSION: Findings compatible with trapped lung, loculated effusion, correlate for pneumonia. Card iomegaly.
--- NOTE | 2019-03-07 09:36 | P.PN ---
Subjective Patient is seen in follow-up for end-stage renal disease. He is maintained on hemodialysis on Sunday schedule. Denies nausea or vomiting. No diarrhea. Oral intake is good. He was noted to have a loculated pleural effusion and had a chest tube placed on March 03. Denies active chest pain or shortness of breath. Potassium level has been running high due to hyperglycemia. Currently seen while undergoing hemodialysis. Vital signs are stable. General: The patient appeared well nourished and normally developed. HEENT: Head exam is unremarkable. Neck is without jugular venous distension. LUNGS: Lungs are clear to auscultation and percussion. Breath sounds decreased. Chest tube noted. HEART: Rate and Rhythm are regular. First and second heart sounds normal. No murmurs, rubs or gallops. ABDOMEN: Abdominal exam reveals normal bowel sounds. Non-tender and non- distended. No evidence of peritonitis. EXTREMITITES: No clubbing, cyanosis, or edema. Objective - Vital Signs Vital signs: Vital Signs Temp 98.9 F 03/07/19 08:00 Pulse 92 03/07/19 08:00 Resp 16 03/07/19 08:00 BP 172/94 03/07/19 08:00 Pulse Ox 94 L 03/07/19 08:00 Intake & Output 03/06/19 03/07/19 03/07/19 18:59 06:59 18:59 Intake Total 1196 180 Output Total 300 115 Balance 896 -115 180 Weight 85.5 kg 84.7 kg Intake: Oral 1196 180 Output: Chest Tube Drainage 300 115 Chest Tube Right 300 115 Other: Voiding Method Toilet Toilet Toilet Urinal Urinal Urinal # Voids 0 - Labs CBC & Chem 7: 03/06/19 06:47 03/07/19 00:46 Labs: Abnormal Lab Results - Last 24 Hours (Table) 03/06/19 03/06/19 03/06/19 Range/Units 11:57 16:49 17:22 Potassium 6.2 H* (3.5-5.1) mmol/L POC Glucose (mg/dL) 335 H 232 H (75-99) mg/dL 03/06/19 03/06/19 03/06/19 Range/Units 20:33 21:47 22:35 Potassium (3.5-5.1) mmol/L POC Glucose (mg/dL) 191 H 237 H 204 H (75-99) mg/dL 03/07/19 03/07/19 03/07/19 Range/Units 00:46 01:08 06:31 Potassium 5.5 H (3.5-5.1) mmol/L POC Glucose (mg/dL) 176 H 147 H (75-99) mg/dL Microbiology - Last 24 Hours (Table) 03/03/19 16:13 Gram Stain - Preliminary Pleural Fluid Body Fluid Culture - Preliminary Assessment and Plan Plan: Assessment: 1. End-stage renal disease maintained on hemodialysis on a Sunday schedule. 2. Hyperkalemia secondary to chronic kidney disease and hyperglycemia. 3. Hypertension with chronic kidney disease. Clonidine was added yesterday. 4. Chronic kidney disease mineral bone disease maintained on PhosLo. 5. Insulin-dependent diabetes mellitus. 6. Nausea and vomiting. Possibly gastroenteritis versus gastroparesis. Resolved. 7. Loculated pleural effusion status post chest tube insertion in March 03. Plan: Currently seen while undergoing hemodialysis. Next treatment on Sunday. Maintain current antihypertensives. Tight blood sugar control.
--- NOTE | 2019-03-07 10:15 | P.DS ---
Providers Date of admission: 02/28/19 16:18 Expected date of discharge: 03/07/19 [facility] Consults: 02/28/19 17:36 Consult Physician Routine Consulting Provider: Lex Sarkar Consult Reason/Comments: renal disease Do you want consulting provider notified?: Yes 03/01/19 00:57 Consult Physician Routine Consulting Provider: Volodymyr Tarango Consult Reason/Comments: pleural effusion rt Do you want consulting provider notified?: Yes 03/04/19 12:08 Consult Physician Routine Consulting Provider: Min Choudhary Consult Reason/Comments: loculated right pleural effusion Do you want consulting provider notified?: Yes Primary care physician: [facility] Course: 38-year-old gentleman who is followed by Dr. Trevino on an outpatient basis. 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 On 02/28/2019 the patient was receiving hemodialysis when he developed some nausea and started shaking. He subsequently was transported to [facility] for further workup and evaluation. He denied any complaints of vomiting, fever, cough, chills, pain, diarrhea, constipation or shortness of breath. For further evaluation the patient was subsequently transferred to [facility] for further workup and evaluation. Upon admission to [facility] a chest x-ray was completed which demonstrated bilateral pleural effusions right greater than left. Due to the findings on the chest x-ray Dr. Tarango from pulmonary medicine was consulted for further evaluation and treatment recommendations. An ultrasound of his chest was completed which demonstrated a 12.5 cm loculated right pleural effusion. Dr. Tarango's recommendations were to consult in terventional radiology to place a right pleural pigtail catheter. On 03/03/2019 the patient underwent an ultrasound-guided right pleural pigtail catheter placement. 03/05/19 POD #2 placement of right pleural pigtail catheter by interventional radiology. The patient is laying in bed on a cardiac stepdown unit. He is in no acute distress. Denies any complaints of pain or shortness of breath at this time. He is receiving a hemodialysis treatment. Right pleural pigtail catheter remains in place to water seal. No air leak is present. 1000 mL of thin serosanguineous drainage drained from the pigtail catheter last 24 hours. The patient received 1 dose of alteplase pleural instillation 10 mg/100 mL yesterday 1. Oxygen saturations are 100% on 2 L nasal cannula. Achieving 1000 mL on his incentive spirometry. 03/06/19 POD #3 placement of right pleural pigtail catheter by interventional radiology. The patient is laying in bed on a cardiac stepdown unit. He is in no acute distress. Denies any complaints of pain or shortness of breath at this time. The patient's mother is present at his bedside. Right pleural pigtail catheter remains in place to water seal. No air leak is present. 1500 mL of thin serosanguineous drainage drained from the pigtail catheter last 24 hours. The patient received 1 dose of alteplase pleural instillation 10 mg/100 mL yesterday 1 and 1 dose on 03/04/2018. Oxygen saturations are 91% on room air. Achieving 1000 mL on his incentive spirometry. The patient had a hemodialysis treatment yesterday with 4.5 L of fluid removed. The patient has a flat affect this morning and reports that he feels kind of down in the dumps as he has a couple family gatherings this weekend that he is going to miss. 03/07/19 Cleared for DC with pigtail catheter; w/ [facility]; will follow up with surgery as out patient. Plan - Discharge Summary New Discharge Prescriptions: New cloNIDine HCL [Catapres] 0.1 mg PO TID #90 tab Continue DULoxetine HCL [Cymbalta] 120 mg PO HS Pravastatin Sodium [Pravachol] 40 mg PO HS Omeprazole [PriLOSEC] 40 mg PO HS ARIPiprazole [Abilify] 10 mg PO HS hydrALAZINE HCL [Apresoline] 100 mg PO TID #90 tab tiZANidine [Zanaflex] 2 mg PO Q8HR PRN PRN Reason: Muscle Spasm Thera M Plus 1 tab PO HS amLODIPine [Norvasc] 10 mg PO DAILY Carvedilol [Coreg] 6.25 mg PO BID Calcium Acetate [PhosLo] 667 mg PO AC-TID #90 cap Ondansetron Odt [Zofran ODT] 4 mg SL Q8HR PRN PRN Reason: Nausea And Vomiting Loratadine [Claritin] 10 mg PO DAILY HYDROcodone/APAP 5-325MG [[place] 5-325] 1 tab PO BID Insulin Aspart [NovoLOG] 50 unit SQ AC-TID Dicyclomine [Bentyl] 20 mg PO Q6H PRN PRN Reason: STOMACH PAIN Insulin Degludec [Tresiba] 30 unit SQ DAILY Glucagon Emergency Kit 1 mg IM ONCE PRN PRN Reason: HYPOGLYCEMIA EVENT Discharge Medication List DULoxetine HCL [Cymbalta] 120 mg PO HS 05/22/15 [History] Pravastatin Sodium [Pravachol] 40 mg PO HS 12/26/15 [History] ARIPiprazole [Abilify] 10 mg PO HS 09/07/16 [History] Omeprazole [PriLOSEC] 40 mg PO HS 09/07/16 [History] hydrALAZINE HCL [Apresoline] 100 mg PO TID #90 tab 07/04/17 [Rx] Thera M Plus 1 tab PO HS 08/05/18 [History] tiZANidine [Zanaflex] 2 mg PO Q8HR PRN 08/05/18 [History] Carvedilol [Coreg] 6.25 mg PO BID 11/14/18 [History] amLODIPine [Norvasc] 10 mg PO DAILY 11/14/18 [History] Calcium Acetate [PhosLo] 667 mg PO AC-TID #90 cap 11/15/18 [Rx] Dicyclomine [Bentyl] 20 mg PO Q6H PRN 02/28/19 [History] Glucagon Emergency Kit 1 mg IM ONCE PRN 02/28/19 [History] HYDROcodone/APAP 5-325MG [[place] 5-325] 1 tab PO BID 02/28/19 [History] Insulin Aspart [NovoLOG] 50 unit SQ AC-TID 02/28/19 [History] Insulin Degludec [Tresiba] 30 unit SQ DAILY 02/28/19 [History] Loratadine [Claritin] 10 mg PO DAILY 02/28/19 [History] Ondansetron Odt [Zofran ODT] 4 mg SL Q8HR PRN 02/28/19 [History] cloNIDine HCL [Catapres] 0.1 mg PO TID #90 tab 03/07/19 [Rx] Follow up Appointment(s)/Referral(s): Volodymyr Tarango MD [STAFF PHYSICIAN] - 1 Week Janis Church NPC [REFERRING] - 03/11/19 2:30 pm (Sunday with Moses AZUL) Patient Instructions/Handouts: Pleural Effusion (DC), Low-Sodium Diet (DC), End Stage Kidney Disease (DC) Discharge Disposition: HOME WITH HOME HEALTH SERVICES
[2019-03-07 11:48] LABS: Glucose,Whole Blood 188 mg/dL (75-99)
[2019-03-07 11:50] VITALS: BP 168/88; PULSE 91; RESP 18
--- NOTE | 2019-03-07 14:22 | P.PN ---
Subjective Progress Note Date: 03/07/19 Principal diagnosis: Loculated right pleural effusion. History of end-stage renal disease with hemodialysis Sunday, Sunday, and Fridays, diabetes mellitus type 1 noncompliant, diabetic neuropathy, hypertension, hyperlipidemia, history of GI bleed, gastroesophageal reflux disease, pericardial effusion status post pericardial window, bilateral pleural effusions status post thoracentesis. POD #4 placement of right pleural pigtail catheter by interventional radiology. Patient's currently sitting up in bed in no acute distress receiving dialysis. Denies pain or shortness of breath. Pigtail remains connected to water seal without air leaks. No new complaints. Objective - Vital Signs Vital signs: Vital Signs Temp 98.9 F 03/07/19 11:49 Pulse 91 03/07/19 12:00 Resp 18 03/07/19 12:00 BP 168/88 03/07/19 11:49 Pulse Ox 94 L 03/07/19 08:00 Intake & Output 03/06/19 03/07/19 03/07/19 18:59 06:59 18:59 Intake Total 1196 702 Output Total 261 767 8572 Balance 896 115 -3298 Weight 85.5 kg 84.7 kg Intake: Oral 1196 702 Output: Chest Tube Drainage 300 115 0 Chest Tube Right 300 115 0 Hemodialysis 4000 Other: Voiding Method Toilet Toilet Toilet Urinal Urinal Urinal # Voids 0 - Constitutional General appearance: Present: cooperative, no acute distress - Respiratory Details: Lungs sounds clear but diminished bilaterally. Respirations even, nonlabored. Currently on room air with oxygen saturation 95%. Able to achieve 1000 mL on his incentive spirometry. Right-sided pigtail catheter remains to waterseal, 115 mL serous drainage overnight, 300 mL last 24 hours, no air leak present. - Cardiovascular Details: S1, S2 present. Regular rate and rhythm, sinus rhythm on telemetry. Palpable peripheral pulses bilaterally. No edema present. No calf pain or tenderness noted. - Gastrointestinal Gastrointestinal Comment(s): Abdomen soft, nontender, nondistended. Active bowel sounds 4 quadrants. Tolerating diet. - Genitourinary Genitourinary Comment(s): Patient is anuric. Hemodialysis dependent with right arm AV fistula - Integumentary Integumentary Comment(s): Skin is warm and dry with evidence of good perfusion. - Neurologic Neurologic: Present: CNII-XII intact - Musculoskeletal Musculoskeletal: Present: gait normal, strength equal bilaterally - Psychiatric Psychiatric: Present: A&O x's 3, appropriate affect, intact judgment & insight - Allied health notes Allied health notes reviewed: nursing - Labs CBC & Chem 7: 03/06/19 06:47 03/07/19 00:46 Labs: Abnormal Lab Results - Last 24 Hours (Table) 03/06/19 03/06/19 03/06/19 Range/Units 16:49 17:22 20:33 Potassium 6.2 H* (3.5-5.1) mmol/L POC Glucose (mg/dL) 232 H 191 H (75-99) mg/dL 03/06/19 03/06/19 03/07/19 Range/Units 21:47 22:35 00:46 Potassium 5.5 H (3.5-5.1) mmol/L POC Glucose (mg/dL) 237 H 204 H (75-99) mg/dL 03/07/19 03/07/19 03/07/19 Range/Units 01:08 06:31 11:46 Potassium (3.5-5.1) mmol/L POC Glucose (mg/dL) 176 H 147 H 188 H (75-99) mg/dL Microbiology - Last 24 Hours (Table) 03/03/19 16:13 Gram Stain - Preliminary Pleural Fluid Body Fluid Culture - Preliminary - Imaging and Cardiology Chest x-ray: report reviewed, image reviewed Assessment and Plan Assessment: 1. Loculated right pleural effusion, status post placement of right pleural pigtail catheter by interventional radiology 2. History of end-stage renal disease with hemodialysis Sunday, Sunday, and Fridays 3. Diabetes mellitus type 1 noncompliant 4. Diabetic neuropathy 5. Hypertension 6. Hyperlipidemia 7. History of GI bleed 8. Gastroesophageal reflux disease 10. Pericardial effusion status post pericardial window 11. Bilateral pleural effusions status post thoracentesis. Plan: 1. From cardiothoracic surgery standpoint pigtail catheter should be discon tinued. No surgical intervention warranted. 2. Patient can be discharged home when okay with other consultants. 3. Medical management and diabetic management per primary care recommendations. 4. Encourage use of his incentive spirometry. 5. Increase activity as tolerated. Physical and occupational therapy consulted. 6. Hemodialysis management per nephrology. 7. If patient has re-accumulation of fluid causing him distress in the future we may revisit placement of Pleurx catheter. This was discussed with the patient. Time with Patient: Greater than 30
== END 2019-03-07 16:12 | disposition home health service (06) | DRG 186 ==
LOC: 3SCARD 16:18
PROVIDERS: ADMIT Internal Medicine; ATTEND Internal Medicine
PROC: 5A1D70Z Performance of Urinary Filtration, Intermittent, Less than 6 Hours Per Day (ICD-10-PCS; principal; 2019-03-02)
PROC: 0W9930Z Drainage of Right Pleural Cavity with Drainage Device, Percutaneous Approach (ICD-10-PCS; 2019-03-03)
PROC: 3E0L3GC Introduction of Other Therapeutic Substance into Pleural Cavity, Percutaneous Approach (ICD-10-PCS; 2019-03-05)
DX: J90 Pleural effusion, not elsewhere classified (principal); N18.6 End stage renal disease; I13.11 Hypertensive heart and chronic kidney disease without heart failure, with stage 5 chronic kidney disease, or end stage renal disease; J98.11 Atelectasis; K29.00 Acute gastritis without bleeding; E10.22 Type 1 diabetes mellitus with diabetic chronic kidney disease; E10.42 Type 1 diabetes mellitus with diabetic polyneuropathy; E10.649 Type 1 diabetes mellitus with hypoglycemia without coma; E10.51 Type 1 diabetes mellitus with diabetic peripheral angiopathy without gangrene; E10.319 Type 1 diabetes mellitus with unspecified diabetic retinopathy without macular edema; E10.65 Type 1 diabetes mellitus with hyperglycemia; E10.36 Type 1 diabetes mellitus with diabetic cataract; E83.9 Disorder of mineral metabolism, unspecified; E87.5 Hyperkalemia; D63.1 Anemia in chronic kidney disease; J45.909 Unspecified asthma, uncomplicated; K21.9 Gastro-esophageal reflux disease without esophagitis; E78.5 Hyperlipidemia, unspecified; M54.9 Dorsalgia, unspecified; H54.7 Unspecified visual loss; F32.9 Major depressive disorder, single episode, unspecified; Z79.4 Long term (current) use of insulin; Z79.899 Other long term (current) drug therapy; Z91.19 Patient's noncompliance with other medical treatment and regimen; Z99.2 Dependence on renal dialysis; Z87.01 Personal history of pneumonia (recurrent); Z86.14 Personal history of Methicillin resistant Staphylococcus aureus infection; Z87.11 Personal history of peptic ulcer disease; Z87.19 Personal history of other diseases of the digestive system; Z98.2 Presence of cerebrospinal fluid drainage device; Z89.412 Acquired absence of left great toe; Z89.422 Acquired absence of other left toe(s); Z88.6 Allergy status to analgesic agent; Z88.5 Allergy status to narcotic agent; Z88.8 Allergy status to other drugs, medicaments and biological substances; Z82.49 Family history of ischemic heart disease and other diseases of the circulatory system; Z82.3 Family history of stroke; Z83.3 Family history of diabetes mellitus
CPT/HCPCS: 32551; 71045; 71250; 76604; 76942; 80048; 83036; 83615; 84132; 84157; 85025; 85610; 86140; 87070; 87205; 88108; 88305; 89050; 90935; 93306

== ENCOUNTER 2019-03-21 08:58 | Inpatient (IN) | payer MEDICARE, OTHER ==
--- NOTE | 2019-03-21 09:12 | ED ---
SOB HPI - General Stated Complaint: Rt pleural effusion Time Seen by Provider: 03/21/19 09:00 Source: patient, RN/MD, EMS, RN notes reviewed, old records reviewed Mode of arrival: EMS - History of Present Illness Initial Comments: Is a 39-year-old male history of end-stage renal disease who does get dialysis 3 times a week also history of diabetes any recent history of a right pleural effusion with thoracentesis who presents back to this emergency Department by EMS as a transfer from [facility] where he presented with shortness of breath. He was found that he had a recurrence of his right pleural effusion with a small loculated pneumothorax on the right likely secondary to the previous thoracentesis. He is scheduled for dialysis today 2 is also found have a markedly elevated blood sugar. He was given insulin prior to his transfer. The transfer was uneventful. Patient states she's feeling fairly well not short of breath at this time. He was demonstrating exertional dyspnea prior to his initial evaluation. The shortness of breath. Come on over the past 2-3 days he also has some lower extremity edema. Additionally the patient troponin was found be mildly elevated this is likely on the basis of his renal failure. She did not demonstrate any chest pain. I did review the materials from the sending facility and discussed the transfer with the tappet adjuster crew. MD Complaint: shortness of breath - Related Data Home Medications Medication Instructions Recorded Confirmed DULoxetine HCL [Cymbalta] 120 mg PO HS 05/22/15 03/21/19 Pravastatin Sodium [Pravachol] 40 mg PO HS 12/26/15 03/21/19 ARIPiprazole [Abilify] 10 mg PO HS 09/07/16 03/21/19 Omeprazole [PriLOSEC] 40 mg PO HS 09/07/16 03/21/19 Thera M Plus 1 tab PO HS 08/05/18 03/21/19 tiZANidine [Zanaflex] 2 mg PO Q8HR PRN 08/05/18 03/21/19 Carvedilol [Coreg] 6.25 mg PO BID 11/14/18 03/21/19 amLODIPine [Norvasc] 10 mg PO DAILY 11/14/18 03/21/19 Dicyclomine [Bentyl] 20 mg PO Q6H PRN 02/28/19 03/21/19 Glucagon Emergency Kit 1 mg IM ONCE PRN 02/28/19 03/21/19 HYDROcodone/APAP 5-325MG [[place] 1 tab PO BID 02/28/19 03/21/19 5-325] Insulin Aspart [NovoLOG] 50 unit SQ AC-TID 02/28/19 03/21/19 Insulin Degludec [Tresiba] 30 unit SQ DAILY 02/28/19 03/21/19 Loratadine [Claritin] 10 mg PO DAILY 02/28/19 03/21/19 Ondansetron Odt [Zofran ODT] 4 mg SL Q8HR PRN 02/28/19 03/21/19 Previous Rx's Medication Instructions Recorded hydrALAZINE HCL [Apresoline] 100 mg PO TID #90 tab 07/04/17 Calcium Acetate [PhosLo] 667 mg PO AC-TID #90 cap 11/15/18 cloNIDine HCL [Catapres] 0.1 mg PO TID #90 tab 03/07/19 Allergies Allergy/AdvReac Type Severity Reaction Status Date / Time acetaminophen [From Tylenol] Allergy Unknown Verified 03/21/19 10:00 lisinopril Allergy Unknown Verified 03/21/19 10:00 atorvastatin calcium AdvReac Nausea & Verified 03/21/19 10:00 [From Lipitor] Vomiting/muscle weakness losartan potassium AdvReac Nausea & Verified 03/21/19 10:00 [From Cozaar] Vomiting/hypotension tramadol AdvReac drowsiness Verified 03/21/19 10:00 Review of Systems ROS Statement: Those systems with pertinent positive or pertinent negative responses have been documented in the HPI. ROS Other: All systems not noted in ROS Statement are negative. Past Medical History Past Medical History: Asthma, Diabetes Mellitus, Dialysis, Eye Disorder, GERD/Reflux, GI Bleed, Hyperlipidemia, Hypertension, Pneumonia, Renal Disease Additional Past Medical History / Comment(s): IDDM type I, diabetic since he was age 21, DKA, hiatal hernia, R eye retinal detachment with surgery-vision decreased, hemodialysis.The patient is seeing hemodialysis 3 times a week on Sunday, Sunday and Sunday since Oct 2014, and he has an AV fistula in his lower right arm. Other medical problems are chronic anemia, previous history of GI bleed secondary to peptic ulcer disease, volume overload, chronic kidney disease, peripheral vascular disease, osteomyelitis, diabetic foot ulcers and amputations History of Any Multi-Drug Resistant Organisms: MRSA Date of last positivie culture/infection: 12/20/11 MDRO Source:: Left Foot Past Surgical History: Ventriculoperitoneal Shunt Additional Past Surgical History / Comment(s): renal needle bx, 2008 left great toe amp and 2013 2nd to 5th left foot toes amputated. right chest mediport x2 with removal in 2010 and 2012. right eye retina reattachment sx 03/2015. EGD/colonoscopy. History of pericardial window for cardiac tampanode. Past Anesthesia/Blood Transfusion Reactions: No Reported Reaction Past Psychological History: No Psychological Hx Reported Smoking Status: Never smoker Past Alcohol Use History: None Reported Past Drug Use History: None Reported - Past Family History Mother Family Medical History: Hypertension Father Family Medical History: CVA/TIA, Diabetes Mellitus, Hypertension Additional Family Medical History / Comment(s): Father is at the age of 53yrs from a CVA. General Exam - General Exam Comments Initial Comments: This a well-developed well-nourished awake alert oriented times x3 male General appearance: alert, in no apparent distress Head exam: Present: atraumatic, normocephalic, normal inspection Eye exam: Present: normal appearance, PERRL, EOMI. Absent: scleral icterus, conjunctival injection, periorbital swelling ENT exam: Present: normal exam, mucous membranes moist Neck exam: Present: normal inspection. Absent: tenderness, meningismus, lymphadenopathy Respiratory exam: Present: decreased breath sounds, other (Markedly diminished breath sounds on the right compared to the left some left basilar crackles as he knew improved with deep inspiratory effort. Dullness over the right base.). Absent: normal lung sounds bilaterally, respiratory distress, wheezes, rales, rhonchi, stridor Cardiovascular Exam: Present: regular rate, normal rhythm, normal heart sounds. Absent: systolic murmur, diastolic murmur, rubs, gallop, clicks GI/Abdominal exam: Present: soft, normal bowel sounds. Absent: distended, tenderness, guarding, rebound, rigid Extremities exam: Present: full ROM, normal capillary refill, pedal edema. Absent: tenderness, joint swelling, calf tenderness Back exam: Present: normal inspection Neurological exam: Present: alert, oriented X3, CN II-XII intact Psychiatric exam: Present: normal affect, normal mood Skin exam: Present: warm, dry, intact, normal color. Absent: rash Course Vital Signs 03/21/19 03/21/19 03/21/19 09:05 09:30 10:00 Temperature 98.6 F Pulse Rate 80 78 80 Respiratory 20 21 19 Rate Blood Pressure 159/93 159/93 159/95 O2 Sat by Pulse 98 98 97 Oximetry 03/21/19 10:30 Temperature Pulse Rate 81 Respiratory 22 Rate Blood Pressure 161/93 O2 Sat by Pulse 98 Oximetry Medical Decision Making - Medical Decision Making I did discuss the findings with the patient and with Dr. Burciaga the patient be admitted with consultation by Dr. Corey as well as nephrology. - Lab Data Lab Results 03/21/19 Range/Units 09:35 POC Glucose (mg/dL) 301 H (75-99) mg/dL POC Glu Step Down Specialist Omar Perez - Radiology Data Radiology results: report reviewed (I did review the imaging and report is evidence of bilateral pleural effusion with a loculated right pneumothorax which is unchanged from previous.), image reviewed Disposition Clinical Impression: Pleural effusion, Chronic renal failure, Dyspnea Disposition: ADMITTED IP TO THIS HOSP Condition: Fair Referrals: Janis Church, DIANA [Primary Care Provider] - 1-2 days
[2019-03-21 09:37] LABS: Glucose,Whole Blood 301 mg/dL (75-99)
--- NOTE | 2019-03-21 09:37 | XR ---
EXAMINATION TYPE: XR chest 2V DATE OF EXAM: 03/21/2019 COMPARISON: 03/07/2019 TECHNIQUE: PA and lateral views submitted. HISTORY: Shortness of breath FINDINGS: There is bilateral consolidation and pleural effusion with a hydropneumothorax on the right measuring approximately 35-40% stable from prior exam. Heart is enlarged. No pneumothorax. Diffuse interstitia l pattern seen. IMPRESSION: 1. Large right-sided hydropneumothorax measuring 40% similar in appearance to the prior exam. 2. Left-sided consolidation and pleural effusion with findings suggestive of CHF.
[2019-03-21] MEDS ORDERED: HYDROmorphone 1 MG/ML 1 ML SYRINGE IVP STA (10:37)
[2019-03-21] MEDS ORDERED: NALOXONE 0.4 MG/ML 1 ML VIAL IV PRN (11:14)
[2019-03-21] MEDS ORDERED: DICYCLOMINE 20 MG TAB PO PRN (11:17)
--- NOTE | 2019-03-21 11:20 | ED ---
Medical Decision Making - Lab Data Lab Results 03/21/19 Range/Units 09:35 POC Glucose (mg/dL) 301 H (75-99) mg/dL POC Glu Head Orthopedic Team Physician ID Hitesh Omar Disposition Clinical Impression: Pleural effusion, Chronic renal failure, Dyspnea, Diabetes, Hyperglycemia Disposition: ADMITTED IP TO THIS HOSP Condition: Fair Referrals: Janis Church, DIANA [Primary Care Provider] - 1-2 days
[2019-03-21] MEDS ORDERED: INSULIN ASPART 50 UNIT SQ SCH (12:30)
--- NOTE | 2019-03-21 13:35 | P.HPIM ---
History of Present Illness 39-year-old pleasant gentleman with a known history of diabetic nephropathy and end-stage liver disease secondary to diabetes mellitus was seen [facility] presented there with shortness of breath patient is found to have bilateral pleural effusions had a history of right pleural effusion and some loculated pneumothorax on the right secondary to previous paracentesis. She is found to have increased the volume overload resulting in bilateral pleural effusions and also some pneumothorax may be from the previous procedure was transferred here to [facility] from [facility] for further management. Patient end-stage renal disease hemodialysis 3 times a week, doesn't make much urine used to remove and half liters with every single session lately they have been only removing 2-3 L which may be contributing to his pulmonary edema. Patient had any fever chills patient had nausea vomiting patient was comparing of orthopnea paroxysmal nocturnal dyspnea patient does have some pedal edema as well. Patient had normal ejection fraction the past. Patient doesn't have any chest pain patient does have some elevated troponin because of end-stage renal disease. EKG not significant. Review of Systems REVIEW OF SYSTEMS: CONSTITUTIONAL: No fever, no malaise, no fatigue. HEENT: No recent visual problems or hearing problems. Denied any sore throat. CARDIOVASCULAR: No chest pain, orthopnea, PND, no palpitations, no syncope. PULMONARY: No shortness of breath, no cough, no hemoptysis. GASTROINTESTINAL: No diarrhea, no nausea, no vomiting, no abdominal pain. NEUROLOGICAL: No headaches, no weakness, no numbness. HEMATOLOGICAL: Denies any bleeding or petechiae. GENITOURINARY: Denies any burning micturition, frequency, or urgency. MUSCULOSKELETAL/RHEUMATOLOGICAL: Denies any joint pain, swelling, or any muscle pain. ENDOCRINE: Denies any polyuria or polydipsia. The rest of the 14-point review of systems is negative. Past Medical History Past Medical History: Asthma, Diabetes Mellitus, Dialysis, Eye Disorder, GERD/Reflux, GI Bleed, Hyperlipidemia, Hypertension, Pneumonia, Renal Disease, Vascular Disorder Additional Past Medical History / Comment(s): Pt recently admitted to [facility] on 02/28/19 with bilateral pleural effusions with R side worse-had R pleural pigtail cath/alteplase pleural instillation. Other hx: IDDM type I, diabetic since he was age 21, DKA, ESRD with hemodialysis on M/W/F, A/V shunt right lower arm, volume overload, chronic anemia, hiatal hernia, previous history of GI bleed secondary to peptic ulcer disease, bilateral pleural effusions/thoracentesis, cardiac tamponade with surgery, peripheral vascular disease, osteomyelitis L foot in 2012, diabetic foot ulcers and amputations, R eye retinal detachment/surgery, L eye cataract History of Any Multi-Drug Resistant Organisms: MRSA Date of last positivie culture/infection: 12/20/11 MDRO Source:: Left Foot Past Surgical History: Ventriculoperitoneal Shunt Additional Past Surgical History / Comment(s): A/V fistula R lower arm, ventriculo peritoneal shunt, renal needle bx, 2008 left great toe amp and 2013 2nd to 5th left foot toes amputated, L foot I&D, right chest mediport x2 with removal in 2010 and 2012. right eye retina reattachment sx 03/2015. EGD/colonoscopy, pericardial window for cardiac tampanode, pleural pigtail insertion/alteplase pleural instillation. Past Anesthesia/Blood Transfusion Reactions: No Reported Reaction Past Psychological History: No Psychological Hx Reported Additional Psychological History / Comment(s): Pt resides with his mother. He uses a cane at times. He drives. He has a glucometer. Smoking Status: Never smoker Past Alcohol Use History: Rare Additional Past Alcohol Use History / Comment(s): Patient states he is a l ifelong nonsmoker. He denies any medical marijuana, marijuana, street drug use. He states he drinks alcohol on a rare basis. He also sates he chews tobacco either daily or every other day Past Drug Use History: None Reported - Past Family History Mother Family Medical History: Hypertension Father Family Medical History: CVA/TIA, Diabetes Mellitus, Hypertension Additional Family Medical History / Comment(s): Father is at the age of 53yrs from a CVA. Medications and Allergies Home Medications Medication Instructions Recorded Confirmed Type DULoxetine HCL [Cymbalta] 120 mg PO HS 05/22/15 03/21/19 History Pravastatin Sodium [Pravachol] 40 mg PO HS 12/26/15 03/21/19 History ARIPiprazole [Abilify] 10 mg PO HS 09/07/16 03/21/19 History Omeprazole [PriLOSEC] 40 mg PO HS 09/07/16 03/21/19 History hydrALAZINE HCL [Apresoline] 100 mg PO TID #90 tab 07/04/17 03/21/19 Rx Thera M Plus 1 tab PO HS 08/05/18 03/21/19 History tiZANidine [Zanaflex] 2 mg PO Q8HR PRN 08/05/18 03/21/19 History Carvedilol [Coreg] 6.25 mg PO BID 11/14/18 03/21/19 History amLODIPine [Norvasc] 10 mg PO DAILY 11/14/18 03/21/19 History Calcium Acetate [PhosLo] 667 mg PO AC-TID #90 cap 11/15/18 03/21/19 Rx Dicyclomine [Bentyl] 20 mg PO Q6H PRN 02/28/19 03/21/19 History Glucagon Emergency Kit 1 mg IM ONCE PRN 02/28/19 03/21/19 History HYDROcodone/APAP 5-325MG [[place] 1 tab PO BID 02/28/19 03/21/19 History 5-325] Insulin Aspart [NovoLOG] See Protocol SQ ACHS 02/28/19 03/21/19 History Insulin Degludec [Tresiba] 30 unit SQ DAILY 02/28/19 03/21/19 History Loratadine [Claritin] 10 mg PO DAILY 02/28/19 03/21/19 History Ondansetron Odt [Zofran ODT] 4 mg SL Q8HR PRN 02/28/19 03/21/19 History cloNIDine HCL [Catapres] 0.1 mg PO TID #90 tab 03/07/19 03/21/19 Rx Allergies Allergy/AdvReac Type Severity Reaction Status Date / Time acetaminophen [From Tylenol] Allergy Unknown Verified 03/21/19 10:00 lisinopril Allergy Unknown Verified 03/21/19 10:00 atorvastatin calcium AdvReac Nausea & Verified 03/21/19 10:00 [From Lipitor] Vomiting/muscle weakness losartan potassium AdvReac Nausea & Verified 03/21/19 10:00 [From Cozaar] Vomiting/hypotension tramadol AdvReac drowsiness Verified 03/21/19 10:00 Physical Exam Vitals: Vital Signs Temp Pulse Resp BP Pulse Ox 03/21/19 10:30 81 22 161/93 98 03/21/19 10:00 80 19 159/95 97 03/21/19 09:30 78 21 159/93 98 03/21/19 09:05 98.6 F 80 20 159/93 98 Intake and Output 03/20/19 03/21/19 03/21/19 22:59 06:59 14:59 Other: Weight 86.183 kg PHYSICAL EXAMINATION: GENERAL: The patient is alert and oriented x3, not in any acute distress. Well developed, well nourished. HEENT: Pupils are round and equally reacting to light. EOMI. No scleral icterus. No conjunctival pallor. Normocephalic, atraumatic. No pharyngeal erythema. No thyromegaly. CARDIOVASCULAR: S1 and S2 present. No murmurs, rubs, or gallops. PULMONARY: She does have good air entry bilateral lung matute pelvis or crackles were appreciated ABDOMEN: Soft, nontender, nondistended, normoactive bowel sounds. No palpable organomegaly. MUSCULOSKELETAL: No joint swelling or deformity. EXTREMITIES: No cyanosis, clubbing, or pedal edema. NEUROLOGICAL: Gross neurological examination did not reveal any focal deficits. SKIN: No rashes. Results Labs: Abnormal Lab Results - Last 24 Hours (Table) 03/21/19 Range/Units 09:35 POC Glucose (mg/dL) 301 H (75-99) mg/dL Thrombosis Risk Factor Assmnt - Choose All That Apply Any of the Below Risk Factors Present?: Yes Each Factor Represents 1 point: Age 41-60 years, Serious lung disease incl. pneumonia (< 1month) Other Risk Factors: Yes Each Risk Factor Represents 2 Points: Central venous access Other congenital or acquired thrombophilia - If yes, enter type in comment: No Thrombosis Risk Factor Assessment Total Risk Factor Score: 4 Thrombosis Risk Factor Assessment Level: Moderate Risk Assessment and Plan Plan: -Acute hypoxic respiratory failure secondary to bilateral pleural effusions secondary to volume overload from renal failure and pneumothorax may be contributing to the cardiac thoracic surgery was consulted from ER. Patient will be dialyzed today and nephrology was consulted. -Bilateral pleural effusions: Suspect volume overload from end-stage liver disease hemodialysis dependent nephrology was consulted -elevated troponin secondary to end-stage disease -Type 2 diabetes mellitus patient will be resumed on his home regimen and the along with sliding scale titrate insulin depending on sliding scale requirements -Asthma without any acute exacerbation -Hyperlipidemia Hypertension -Diabetic nephropathy, diabetic retinopathy and neuropathy -Metabolic bone disease and hyperphosphatemia secondary to estrogen disease and patient was regular and possible binders Patient will need pharmacologic DVT and GI prophylaxis
[2019-03-21 14:10] LABS: Glucose,Whole Blood 201 mg/dL (75-99)
[2019-03-21] MEDS: INSULIN ASPART (NovoLOG) 100 UNIT/ML VIAL SQ SCH ×3 (14:24→21:39)
--- NOTE | 2019-03-21 15:32 | P.GSCN ---
History of Present Illness Consult date: 03/21/19 Reason for Consult: Hydropneumothorax Requesting physician: Volodymyr Tarango History of present illness: This is a 39-year-old gentleman who follows with nurse practitioner Janis Church on an outpatient basis. He has a previous medical history of recent hospitalization for loculated right pleural effusion with placement of right sided pigtail catheter and instillation of alteplase, end-stage renal disease with hemodialysis Sunday, Sunday, Sunday, uncontrolled diabetes, diabetic neuropathy, hypertension, hyperlipidemia, GI bleed, gastroesophageal reflux disease, pericardial effusion with tamponade status post pericardial window, and bilateral pleural effusions status post bilateral thoracentesis. He was discharged from his most recent admission on 03/07/2019. He presented again this morning to [facility] with complaints of shortness of breath and lower extremity edema and was discovered to have recurrence of his right-sided pleural effusion with trapped lung. He was transferred to [facility] for further evaluation and treatment. Upon assessment the patient does not appear to be in any acute distress and he does state his shortness of breath is mostly with exertion. He is being admitted for treatment with consultations placed to pulmonology and nephrology. Dr. Choudhary was consulted for recommendations for treatment of his pleural effusion with his last admission, the recommendation at that time was for future placement of Pleurx catheter if his effusion should get worse or his symptoms should worsen. This was agreed upon by the patient. Dr. Choudhary was again consulted this admission for similar recommendations. Review of Systems Review of systems was completed and was negative except as noted. - Cardiovascular Reports dyspnea on exertion, Reports leg edema Past Medical History Past Medical History: Asthma, Diabetes Mellitus, Dialysis, Eye Disorder, GERD/Reflux, GI Bleed, Hyperlipidemia, Hypertension, Pneumonia, Renal Disease, Vascular Disorder Additional Past Medical History / Comment(s): Pt recently admitted to [facility] on 02/28/19 with bilateral pleural effusions with R side worse-had R pleural pigtail cath/alteplase pleural instillation. Other hx: IDDM type I, diabetic since he was age 21, DKA, ESRD with hemodialysis on M/W/F, A/V shunt right lower arm, volume overload, chronic anemia, hiatal hernia, previous history of GI bleed secondary to peptic ulcer disease, bilateral pleural effusions/thoracentesis, cardiac tamponade with surgery, peripheral vascular disease, osteomyelitis L foot in 2013, diabetic foot ulcers and amputations, R eye retinal detachment/surgery, L eye cataract History of Any Multi-Drug Resistant Organisms: MRSA Year Discovered:: 12/20/11 MDRO Source:: Left Foot Past Surgical History: Ventriculoperitoneal Shunt Additional Past Surgical History / Comment(s): A/V fistula R lower arm, ventriculo peritoneal shunt, renal needle bx, 2008 left great toe amp and 2013 2nd to 5th left foot toes amputated, L foot I&D, right chest mediport x2 with removal in 2010 and 2012. right eye retina reattachment sx 03/2015. EGD/colonoscopy, pericardial window for cardiac tampanode, pleural pigtail insertion/alteplase pleural instillation. Past Anesthesia/Blood Transfusion Reactions: No Reported Reaction Past Psychological History: No Psychological Hx Reported Additional Psychological History / Comment(s): Pt resides with his mother. He uses a cane at times. He drives. He has a glucometer. Smoking Status: Never smoker Past Alcohol Use History: Rare Additional Past Alcohol Use History / Comment(s): Patient states he is a lifelong nonsmoker. He denies any medical marijuana, marijuana, street drug use. He states he drinks alcohol on a rare basis. He also sates he chews tobacco either daily or every other day Past Drug Use History: None Reported - Past Family History Mother Family Medical History: Hypertension Father Family Medical History: CVA/TIA, Diabetes Mellitus, Hypertension Additional Family Medical History / Comment(s): Father is at the age of 53yrs from a CVA. Medications and Allergies Home Medications Medication Instructions Recorded Confirmed Type DULoxetine HCL [Cymbalta] 120 mg PO HS 05/22/15 03/21/19 History Pravastatin Sodium [Pravachol] 40 mg PO HS 12/26/15 03/21/19 History ARIPiprazole [Abilify] 10 mg PO HS 09/07/16 03/21/19 History Omeprazole [PriLOSEC] 40 mg PO HS 09/07/16 03/21/19 History hydrALAZINE HCL [Apresoline] 100 mg PO TID #90 tab 07/04/17 03/21/19 Rx Thera M Plus 1 tab PO HS 08/05/18 03/21/19 History tiZANidine [Zanaflex] 2 mg PO Q8HR PRN 08/05/18 03/21/19 History Carvedilol [Coreg] 6.25 mg PO BID 11/14/18 03/21/19 History amLODIPine [Norvasc] 10 mg PO DAILY 11/14/18 03/21/19 History Calcium Acetate [PhosLo] 667 mg PO AC-TID #90 cap 11/15/18 03/21/19 Rx Dicyclomine [Bentyl] 20 mg PO Q6H PRN 02/28/19 03/21/19 History Glucagon Emergency Kit 1 mg IM ONCE PRN 02/28/19 03/21/19 History HYDROcodone/APAP 5-325MG [[place] 1 tab PO BID 02/28/19 03/21/19 History 5-325] Insulin Aspart [NovoLOG] See Protocol SQ ACHS 02/28/19 03/21/19 History Insulin Degludec [Tresiba] 30 unit SQ DAILY 02/28/19 03/21/19 History Loratadine [Claritin] 10 mg PO DAILY 02/28/19 03/21/19 History Ondansetron Odt [Zofran ODT] 4 mg SL Q8HR PRN 02/28/19 03/21/19 History cloNIDine HCL [Catapres] 0.1 mg PO TID #90 tab 03/07/19 03/21/19 Rx Allergies Allergy/AdvReac Type Severity Reaction Status Date / Time acetaminophen [From Tylenol] Allergy Unknown Verified 03/21/19 10:00 lisinopril Allergy Unknown Verified 03/21/19 10:00 atorvastatin calcium AdvReac Nausea & Verified 03/21/19 10:00 [From Lipitor] Vomiting/muscle weakness losartan potassium AdvReac Nausea & Verified 03/21/19 10:00 [From Cozaar] Vomiting/hypotension tramadol AdvReac drowsiness Verified 03/21/19 10:00 Surgical - Exam Vital Signs Temp Pulse Resp BP Pulse Ox 98.6 F 80 20 159/93 98 03/21/19 09:05 03/21/19 09:05 03/21/19 09:05 03/21/19 09:05 03/21/19 09:05 - General well developed, well nourished, no distress, no pain, chronically ill - Eyes PERRL, normal ocular movement - ENT no hearing loss, dentures - Neck no masses, no bruits, trachea midline - Respiratory Lungs sounds diminished bilaterally, right greater than left. Respirations even, nonlabored. Currently on 4 L nasal cannula with oxygen saturation 98%. - Cardiovascular S1, S2 present. Regular rate and rhythm, sinus rhythm on telemetry. Palpable peripheral pulses bilaterally. Trace bilateral lower extremity edema present. Right forearm AV fistula present, positive bruit, positive thrill. - Abdomen Abdomen: soft, non tender, bowel sounds - Genitourinary Deferred - Rectum Deferred - Integumentary Well-healed surgical scar mid abdomen no rash, no growths - Neurologic normal coordination, normal sensation - Musculoskeletal normal posture - Psychiatric oriented to time, oriented to person, oriented to place, speech is normal, memory intact Results - Labs Abnormal Lab Results - Last 24 Hours (Table) 03/21/19 03/21/19 Range/Units 09:35 14:08 POC Glucose (mg/dL) 301 H 201 H (75-99) mg/dL - Imaging Chest x-ray: report reviewed, image reviewed Assessment and Plan Assessment: 1. Hydropneumothorax 2. Recent hospitalization for loculated right pleural effusion with placement of right-sided pigtail catheter and instillation of alteplase 3. End-stage renal disease with hemodialysis Sunday, Sunday, Sunday 4. Uncontrolled diabetes mellitus with hemoglobin A1c on last admission 11.1% 5. Diabetic neuropathy 6. Hypertension 7. Hyperlipidemia 8. GI bleed 9. Gastroesophageal reflux disease 10. History of pericardial effusion with tamponade status post pericardial window 11. History of bilateral pleural effusions status post bilateral thoracentesis Plan: The patient was seen and examined at the bedside in the emergency room. His chart and diagnostics from this admission as well as his recent previous admission were reviewed in detail. Films were reviewed with Dr. Banks. We will order incentive spirometry and encouraged to use 10 times every hour while awake. We will discuss the case with Dr. Choudhary and make recommendations for sol rgical management. Upon assessment and evaluation of the patient, he did inform us that pulmonology had already told him he should consider transfer to [facility] for surgical evaluation. We will discuss with pulmonology and with the patient, and all come to an agreement about what is the safest for the patient. Management of other comorbid conditions per primary care, pulmonology, and nephrology. Thank you Dr. Tarango for this consult. We look forward to working with you in the care of your patient. Time with Patient: Greater than 30
--- NOTE | 2019-03-21 15:40 | P.CNPUL ---
History of Present Illness Consult date: 03/21/19 Requesting physician: Ella Lopez Reason for consult: dyspnea, pleural effusion Chief complaint: Dyspnea History of present illness: This a 39-year-old white male patient of Dr. Trevino/, [facility], with history of end-stage renal disease on hemodialysis 3 times a week, diabetes mellitus type I with previous episodes of DKA, hypertension, hyperlipidemia, chronic anemia, history of GI bleed secondary to peptic ulcer disease, peripheral vascular disease, diabetic foot ulcers and amputation of digits from his left foot, history of cardiac tamponade with pericardial window. Patient was recently hospitalized for loculated right pleural effusion, and interventional radiology placed ultrasound-guided right pleural pigtail catheter, patient received alteplase infusions, and there was serosanguineous drainage draining from the chest tube. However following the placement, and drainage of the pleural fluid the right lung did not reexpand, although the drainage subsided and pigtail catheter was discontinued. A total of 3 L of pleural drainage was drained over a period of a few days. Pleural fluid did not show cytologically malignant cells. Pleural fluid cultures showed no growth. Patient came into the hospital on 03/21/2019 with complaints of worsening shortness of breath, chest x-ray showed large right-sided hydropneumothorax measuring 40% similar in appearance to the prior exam. Today is his regular hemodialysis day. Patient was also found to have significantly elevated blood sugar. Does complain of exertional dyspnea, but no significant distress, no complaint of chest pain, no cough, no phlegm production, no fever or chills. Chest x-ray showed a bilateral pleural effusions with a loculated right pneumothorax which is unchanged from the previous chest x-ray. Patient was transferred from [facility] to [facility] where consulted for evaluation of his shortness of breath. Review of Systems All systems: negative Constitutional: Denies chills, Denies fever Eyes: denies blurred vision, denies pain Ears, nose, mouth and throat: Denies headache, Denies sore throat Cardiovascular: Reports decreased exercise tolerance, Reports dyspnea on exertion, Denies chest pain, Denies shortness of breath Respiratory: Reports dyspnea, Denies cough Gastrointestinal: Denies abdominal pain, Denies diarrhea, Denies nausea, Denies vomiting Musculoskeletal: Denies myalgias Integumentary: Denies pruritus, Denies rash Neurological: Denies numbness, Denies weakness Psychiatric: Denies anxiety, Denies depression Endocrine: Denies fatigue, Denies weight change Past Medical History Past Medical History: Asthma, Diabetes Mellitus, Dialysis, Eye Disorder, GERD/Reflux, GI Bleed, Hyperlipidemia, Hypertension, Pneumonia, Renal Disease, Vascular Disorder Additional Past Medical History / Comment(s): Pt recently admitted to [facility] on 02/28/19 with bilateral pleural effusions with R side worse-had R pleural pigtail cath/alteplase pleural instillation. Other hx: IDDM type I, diabetic since he was age 21, DKA, ESRD with hemodialysis on //, A/V shunt right lower arm, volume overload, chronic anemia, hiatal hernia, previous history of GI bleed secondary to peptic ulcer disease, bilateral pleural effusions/thoracentesis, cardiac tamponade with surgery, peripheral vascular disease, osteomyelitis L foot in 2012, diabetic foot ulcers and amputations, R eye retinal detachment/surgery, L eye cataract History of Any Multi-Drug Resistant Organisms: MRSA Date of last positivie culture/infection: 12/20/11 MDRO Source:: Left Foot Past Surgical History: Ventriculoperitoneal Shunt Additional Past Surgical History / Comment(s): A/V fistula R lower arm, ventriculo peritoneal shunt, renal needle bx, 2008 left great toe amp and 2013 2nd to 5th left foot toes amputated, L foot I&D, right chest mediport x2 with removal in 2010 and 2012. right eye retina reattachment sx 03/2015. EGD/colonoscopy, pericardial window for cardiac tampanode, pleural pigtail insertion/alteplase pleural instillation. Past Anesthesia/Blood Transfusion Reactions: No Reported Reaction Past Psychological History: No Psychological Hx Reported Additional Psychological History / Comment(s): Pt resides with his mother. He uses a cane at times. He drives. He has a glucometer. Smoking Status: Never smoker Past Alcohol Use History: Rare Additional Past Alcohol Use History / Comment(s): Patient states he is a lifelong nonsmoker. He denies any medical marijuana, marijuana, street drug use. He states he drinks alcohol on a rare basis. He also sates he chews tobacco either daily or every other day Past Drug Use History: None Reported - Past Family History Mother Family Medical History: Hypertension Father Family Medical History: CVA/TIA, Diabetes Mellitus, Hypertension Additional Family Medical History / Comment(s): Father is at the age of 53yrs from a CVA. Medications and Allergies Home Medications Medication Instructions Recorded Confirmed Type DULoxetine HCL [Cymbalta] 120 mg PO HS 05/22/15 03/21/19 History Pravastatin Sodium [Pravachol] 40 mg PO HS 12/26/15 03/21/19 History ARIPiprazole [Abilify] 10 mg PO HS 09/07/16 03/21/19 History Omeprazole [PriLOSEC] 40 mg PO HS 09/07/16 03/21/19 History hydrALAZINE HCL [Apresoline] 100 mg PO TID #90 tab 07/04/17 03/21/19 Rx Thera M Plus 1 tab PO HS 08/05/18 03/21/19 History tiZANidine [Zanaflex] 2 mg PO Q8HR PRN 08/05/18 03/21/19 History Carvedilol [Coreg] 6.25 mg PO BID 11/14/18 03/21/19 History amLODIPine [Norvasc] 10 mg PO DAILY 11/14/18 03/21/19 History Calcium Acetate [PhosLo] 667 mg PO AC-TID #90 cap 11/15/18 03/21/19 Rx Dicyclomine [Bentyl] 20 mg PO Q6H PRN 02/28/19 03/21/19 History Glucagon Emergency Kit 1 mg IM ONCE PRN 02/28/19 03/21/19 History HYDROcodone/APAP 5-325MG [[place] 1 tab PO BID 02/28/19 03/21/19 History 5-325] Insulin Aspart [NovoLOG] See Protocol SQ ACHS 02/28/19 03/21/19 History Insulin Degludec [Tresiba] 30 unit SQ DAILY 02/28/19 03/21/19 History Loratadine [Claritin] 10 mg PO DAILY 02/28/19 03/21/19 History Ondansetron Odt [Zofran ODT] 4 mg SL Q8HR PRN 02/28/19 03/21/19 History cloNIDine HCL [Catapres] 0.1 mg PO TID #90 tab 03/07/19 03/21/19 Rx Allergies Allergy/AdvReac Type Severity Reaction Status Date / Time acetaminophen [From Tylenol] Allergy Unknown Verified 03/21/19 10:00 lisinopril Allergy Unknown Verified 03/21/19 10:00 atorvastatin calcium AdvReac Nausea & Verified 03/21/19 10:00 [From Lipitor] Vomiting/muscle weakness losartan potassium AdvReac Nausea & Verified 03/21/19 10:00 [From Cozaar] Vomiting/hypotension tramadol AdvReac drowsiness Verified 03/21/19 10:00 Physical Exam Vitals: Vital Signs Temp Pulse Resp BP Pulse Ox 03/21/19 10:30 81 22 161/93 98 03/21/19 10:00 80 19 159/95 97 03/21/19 09:30 78 21 159/93 98 03/21/19 09:05 98.6 F 80 20 159/93 98 Intake and Output 03/21/19 03/21/19 03/21/19 06:59 14:59 22:59 Other: Weight 86.183 kg GENERAL EXAM: Alert, pleasant, 39-year-old white male, resting on the gurney, in no acute distress, comfortable in no apparent distress. HEAD: Normocephalic/atraumatic. EYES: Normal reaction of pupils, equal size. Conjunctiva pink, sclera white. NOSE: Clear with pink turbinates. THROAT: No erythema or exudates. NECK: No masses, no JVD, no thyroid enlargement, no adenopathy. CHEST: No chest wall deformity. Symmetrical expansion. LUNGS: Equal air entry with diminished breath sounds at bilateral bases, with basilar crackles, dullness to percussion on the right side CVS: Regular rate and rhythm, normal S1 and S2, no gallops, no murmurs, no rubs ABDOMEN: Soft, nontender. No hepatosplenomegaly, normal bowel sounds, no guarding or rigidity. EXTREMITIES: No clubbing, 2+ pitting edema, no cyanosis, 2+ pulses and upper and lower extremities. MUSCULOSKELETAL: Muscle strength and tone normal. SPINE: No scoliosis or deformity SKIN: No rashes CENTRAL NERVOUS SYSTEM: Alert and oriented -3. No focal deficits, tone is normal in all 4 extremities. PSYCHIATRIC: Alert and oriented -3. Appropriate affect. Intact judgment and insight. Results - Laboratory Findings Abnormal lab findings: Abnormal Labs 03/21/19 03/21/19 09:35 14:08 POC Glucose (mg/dL) 301 H 201 H - Diagnostic Findings Chest x-ray: report reviewed, image reviewed Assessment and Plan Plan: Assessment: #1. Acute hypoxic respiratory failure secondary to bilateral pleural effusions likely related to fluid volume overload. There is a loculated right-sided pleural effusion, with previous history of pigtail catheter placement in February 2019 #2. Right-sided pneumothorax of 40%, unchanged from previous admission, with failure to reexpand, trapped lung, despite placement of a pigtail catheter placement, and drainage of the pleural effusion #3. Elevated troponins #4. Hypertension #5. Hyperlipidemia #6. History of type 1 diabetes mellitus with previous history of DKA, diabetic retinopathy and neuropathy #7. Peripheral vascular disease with history of diabetic ulcers and amputations of digits on the left foot #8. End-stage renal disease on hemodialysis #9. History of GI bleeding #10. GERD/reflux Plan: Chest x-ray has been reviewed, patient was seen and evaluated by Dr. Bennett, right-sided pneumothorax remained unchanged despite the placement of a pigtail catheter and drainage of the pleural fluid. Recommend surgical intervention, possibly decortication of the right lung. CT surgery has been consulted, and is discussing placement of a Pleurx catheter. This will probably not help reexpand the right lung, as it failed to expand with the pigtail catheter placement. Will await their further recommendations, patient is fluid overloaded, and is awaiting dialysis. He is orthopneic, and moderately dyspneic, but no acute distress. We'll continue to follow I performed a history & physical examination of the patient and discussed their management with my nurse practitioner, Lara Reddy. I reviewed the nurse practitioner's note and agree with the documented findings and plan of care. Lung sounds are positive for diminished breath sounds on the right. The findings and the impression was discussed with the patient. I attest to the documentation by the nurse practitioner. Time with Patient: Greater than 30
[2019-03-21] MEDS: CALCIUM ACETATE 667 MG CAP PO SCH ×2 (16:40→21:39)
[2019-03-21 17:29] LABS: Glucose,Whole Blood 145 mg/dL (75-99)
[2019-03-21] MEDS: HYDROcodone/APAP 5-325MG 1 EACH TAB PO SCH (19:52)
[2019-03-21] MEDS: hydrALAZINE HCL 50 MG TAB PO SCH (19:53)
[2019-03-21] MEDS: PANTOPRAZOLE 40 MG TABLET PO SCH (19:53)
[2019-03-21] MEDS: CARVEDILOL 6.25 MG TAB PO SCH (19:54)
[2019-03-21] MEDS: cloNIDine HCL 0.1 MG TAB PO SCH (19:54)
[2019-03-21] MEDS: MULTIVITAMINS, THERA 1 EACH TAB PO SCH (19:54)
[2019-03-21 20:22] LABS: Glucose,Whole Blood 192 mg/dL (75-99)
[2019-03-21] MEDS: PRAVASTATIN SODIUM 40 MG TAB PO SCH (21:39)
[2019-03-21] MEDS: ARIPiprazole 10 MG TAB PO SCH (21:39)
[2019-03-21] MEDS: DULoxetine HCL 60 MG CAPSULE.DR PO SCH (21:39)
[2019-03-21] MEDS: HYDROmorphone 0.5 MG/0.5 ML SYRINGE IVP PRN (21:46)
[2019-03-22] MEDS: hydrALAZINE HCL 50 MG TAB PO SCH ×4 (00:44→23:00)
[2019-03-22] MEDS: cloNIDine HCL 0.1 MG TAB PO SCH ×4 (00:44→23:00)
[2019-03-22] MEDS: HYDROmorphone 0.5 MG/0.5 ML SYRINGE IVP PRN ×7 (00:44→23:01)
[2019-03-22 07:06] LABS: Glucose,Whole Blood 260 mg/dL (75-99)
--- NOTE | 2019-03-22 07:43 | XR ---
EXAMINATION TYPE: XR chest 2V DATE OF EXAM: 03/22/2019 COMPARISON: Chest x-ray from yesterday and older studies HISTORY: Shortness of breath, pleural effusions. TECHNIQUE: Frontal and lateral views of the chest are obtained. FINDINGS: There is persistent small to moderate-sized loculated right-sided hydropneumothorax latera l base. There is associated compressive atelectasis right lower lung. There is persistent small-to-mo derate left pleural effusion with associated left basilar atelectasis and/or infiltrate. Cardiomegaly is redemonstrated. Osseous structures are intact. IMPRESSION: Overall stable findings, small to moderate size lateral right basilar hydropneumothorax with adjacent right lower lobe atelectatic change. Cardiomegaly with small left pleural effusion rede monstrated with associated atelectasis and/or infiltrate again seen.
[2019-03-22] MEDS: CARVEDILOL 6.25 MG TAB PO SCH ×2 (07:55→18:06)
[2019-03-22] MEDS: INSULIN DETEMIR (LEVEMIR) 100 UNIT/ML SYR SQ SCH (07:57)
[2019-03-22] MEDS: amLODIPine 10 MG TAB PO SCH (07:57)
[2019-03-22] MEDS: CALCIUM ACETATE 667 MG CAP PO SCH ×3 (07:57→18:06)
[2019-03-22] MEDS: INSULIN ASPART (NovoLOG) 100 UNIT/ML VIAL SQ SCH ×4 (07:57→20:28)
[2019-03-22] MEDS: LORATADINE 10 MG TAB PO SCH (08:01)
[2019-03-22 09:00] LABS: Anisocytosis Slight; HCT 33.9 % (39.0-53.0); HGB 10.9 gm/dL (13.0-17.5); Hypochromasia Moderate; MCH 26.2 pg (25.0-35.0); MCV 81.8 fL (80.0-100.0); Mean Platelet Volume 10.3; Platelet Count 214 k/uL (150-450); RBC 4.15 m/uL (4.30-5.90); RDW 16.9 % (11.5-15.5); WBC 6.6 k/uL (3.8-10.6)
[2019-03-22 09:18] LABS: Calcium 8.5 mg/dL (8.4-10.2)
[2019-03-22 09:23] LABS: Potassium 4.1 mmol/L (3.5-5.1)
--- NOTE | 2019-03-22 09:38 | P.PN ---
Subjective Progress Note Date: 03/22/19 Principal diagnosis: Dyspnea, pleural effusion. This a 39-year-old white male patient of Dr. Trevino/, [facility], with history of end-stage renal disease on hemodialysis 3 times a week, diabetes mellitus type I with previous episodes of DKA, hypertension, hyperlipidemia, ch ronic anemia, history of GI bleed secondary to peptic ulcer disease, peripheral vascular disease, diabetic foot ulcers and amputation of digits from his left foot, history of cardiac tamponade with pericardial window. Patient was recently hospitalized for loculated right pleural effusion, and interventional radiology placed ultrasound-guided right pleural pigtail catheter, patient received alteplase infusions, and there was serosanguineous drainage draining from the chest tube. However following the placement, and drainage of the pleural fluid the right lung did not reexpand, although the drainage subsided and pigtail catheter was discontinued. A total of 3 L of pleural drainage was drained over a period of a few days. Pleural fluid did not show cytologically malignant cells. Pleural fluid cultures showed no growth. Patient came into the hospital on 03/21/2019 with complaints of worsening shortness of breath, chest x-ray showed large right-sided hydropneumothorax measuring 40% similar in appearance to the prior exam. Today is his regular hemodialysis day. Patient was also found to have significantly elevated blood sugar. Does complain of exertional dyspnea, but no significant distress, no complaint of chest pain, no cough, no phlegm production, no fever or chills. Chest x-ray showed a bilateral pleural effusions with a loculated right pneumothorax which is unchanged from the previous chest x-ray. Patient was transferred from [facility] to [facility] And where consulted for evaluation of his shortness of breath. The patient is seen today 03/22/2019 in follow-up on the regular medical floor. He is awake and alert in no acute distress. Breathing easier today as compared to yesterday. His chest x-ray is stable. Continues with a small to moderate sized lateral right basilar hydropneumothorax with adjacent right lower lobe atelectasis. He is maintaining O2 saturations in the mid 90s on 2 L/m per nasal cannula. He is afebrile. White count 6.6. Hemoglobin 10.9. He is due for hemodialysis today. Objective - Vital Signs Vital signs: Vital Signs Temp 98.4 F 03/22/19 05:11 Pulse 89 03/22/19 05:11 Resp 16 03/22/19 05:11 BP 150/78 03/22/19 05:58 Pulse Ox 96 03/22/19 08:15 Intake & Output 03/21/19 03/22/19 03/22/19 18:59 06:59 18:59 Intake Total 890 Output Total 4300 Balance -3410 Weight 86.183 kg 86 kg Intake: Oral 590 Hemodialysis 300 Output: Hemodialysis 4300 Other: Voiding Method Toilet Toilet Urinal Urinal # Voids 0 1 - Exam GENERAL EXAM: Alert, pleasant, 39-year-old male, in no acute distress, comfortable in no apparent distress. On 2 L nasal cannula with O2 saturation 95%. HEAD: Normocephalic/atraumatic. EYES: Normal reaction of pupils, equal size. Conjunctiva pink, sclera white. NOSE: Clear with pink turbinates. THROAT: No erythema or exudates. NECK: No masses, no JVD, no thyroid enlargement, no adenopathy. CHEST: No chest wall deformity. Symmetrical expansion. LUNGS: Equal air entry with diminished breath sounds at bilateral bases, with basilar crackles, dullness to percussion on the right side CVS: Regular rate and rhythm, normal S1 and S2, no gallops, no murmurs, no rubs ABDOMEN: Soft, nontender. No hepatosplenomegaly, normal bowel sounds, no guarding or rigidity. EXTREMITIES: No clubbing, 2+ pitting edema, no cyanosis, 2+ pulses and upper and lower extremities. MUSCULOSKELETAL: Muscle strength and tone normal. SPINE: No scoliosis or deformity SKIN: No rashes CENTRAL NERVOUS SYSTEM: No focal deficits, tone is normal in all 4 extremities. PSYCHIATRIC: Alert and oriented -3. Appropriate affect. Intact judgment and insight. - Labs CBC & Chem 7: 03/22/19 07:19 Labs: Abnormal Lab Results - Last 24 Hours (Table) 03/21/19 03/21/19 03/21/19 Range/Units 09:35 14:08 17:28 RBC (4.30-5.90) m/uL Hgb (13.0-17.5) gm/dL Hct (39.0-53.0) % RDW (11.5-15.5) % POC Glucose (mg/dL) 301 H 201 H 145 H (75-99) mg/dL 03/21/19 03/22/19 03/22/19 Range/Units 20:21 07:05 07:19 RBC 4.15 L (4.30-5.90) m/uL Hgb 10.9 L (13.0-17.5) gm/dL Hct 33.9 L (39.0-53.0) % RDW 16.9 H (11.5-15.5) % POC Glucose (mg/dL) 192 H 260 H (75-99) mg/dL Assessment and Plan Assessment: Assessment: #1. Acute hypoxic respiratory failure secondary to bilateral pleural effusions likely related to fluid volume overload. There is a loculated right-sided pleural effusion, with previous history of pigtail catheter placement in February 27 #2. Right-sided pneumothorax of 40%, unchanged from previous admission, with failure to reexpand, trapped lung, despite placement of a pigtail catheter placement, and drainage of the pleural effusion #3. Elevated troponins #4. Hypertension #5. Hyperlipidemia #6. History of type 1 diabetes mellitus with previous history of DKA, diabetic retinopathy and neuropathy #7. Peripheral vascular disease with history of diabetic ulcers and amputations of digits on the left foot #8. End-stage renal disease on hemodialysis #9. History of GI bleeding #10. GERD/reflux Plan: The patient was seen and evaluated by Dr. Tarango. Chest x-ray and labs reviewed. Currently in no pulmonary distress. We are waiting for further input from cardiothoracic. We'll continue to follow and make further recommendations based on his clinical status. I, the cosigning physician, performed a history & physical examination of the patient. Lungs sounds diminished in the bases right greater than left. Maintaining good O2 saturations in the 90s on 2L minute. I discussed the ass essment and plan of care with my nurse practitioner, Alisha Hodges. I attest to the above note as dictated by her.
[2019-03-22] MEDS: HYDROcodone/APAP 5-325MG 1 EACH TAB PO SCH ×2 (10:11→23:25)
--- NOTE | 2019-03-22 11:21 | P.NPCON ---
History of Present Illness - Reason for Consult end stage renal disease - Chief Complaint Shortness of breath - History of Present Illness This is a 39-year-old patient with type 1 diabetes for about 20 some years, ESRD on dialysis o 2 and half years with the fistula in his right forearm. He is not on a transplant list yet. He came in because of shortness of breath. He was dialyzed yesterday at [place] for 4 hours for 4 L taken off. Patient was admitted here recently on 02/28/2019 and discharge 03/07/2019. He came in with intractable nausea and vomiting at the time. He was found to have new skin effusion and a right pleural pigtail catheter was placed on 03/03/2019. This was discontinued before his discharge. No fever chills, no cough no nausea vomiting diarrhea. Is able to walk normally. His vision is fairly well maintained Workup has shown bilateral pleural effusion and right sided small loculated pneumothorax. She has had a pleural tap in about 2 weeks ago here. Past Medical History Past Medical History: Asthma, Diabetes Mellitus, Dialysis, Eye Disorder, GERD/Reflux, GI Bleed, Hyperlipidemia, Hypertension, Pneumonia, Renal Disease, Vascular Disorder Additional Past Medical History / Comment(s): Pt recently admitted to [facility] on 02/28/19 with bilateral pleural effusions with R side worse-had R pleural pigtail cath/alteplase pleural instillation. Other hx: IDDM type I, diabetic since he was age 21, DKA, ESRD with hemodialysis on //, A/V shunt right lower arm, volume overload, chronic anemia, hiatal hernia, previous history of GI bleed secondary to peptic ulcer disease, bilateral pleural effusions/thoracentesis, cardiac tamponade with surgery, peripheral vascular disease, osteomyelitis L foot in 2012, diabetic foot ulcers and amputations, R eye retinal detachment/surgery, L eye cataract History of Any Multi-Drug Resistant Organisms: MRSA Date of last positivie culture/infection: 12/20/11 MDRO Source:: Left Foot Past Surgical History: Ventriculoperitoneal Shunt Additional Past Surgical History / Comment(s): A/V fistula R lower arm, ventricu lo peritoneal shunt, renal needle bx, 2008 left great toe amp and 2013 2nd to 5th left foot toes amputated, L foot I&D, right chest mediport x2 with removal in 2010 and 2012. right eye retina reattachment sx 03/2015. EGD/colonoscopy, pericardial window for cardiac tampanode, pleural pigtail insertion/alteplase pleural instillation. Past Anesthesia/Blood Transfusion Reactions: No Reported Reaction Past Psychological History: No Psychological Hx Reported Additional Psychological History / Comment(s): Pt resides with his mother. He uses a cane at times. He drives. He has a glucometer. Smoking Status: Never smoker Past Alcohol Use History: Rare Additional Past Alcohol Use History / Comment(s): Patient states he is a lifelong nonsmoker. He denies any medical marijuana, marijuana, street drug use. He states he drinks alcohol on a rare basis. He also sates he chews tobacco either daily or every other day Past Drug Use History: None Reported - Past Family History Mother Family Medical History: Hypertension Father Family Medical History: CVA/TIA, Diabetes Mellitus, Hypertension Additional Family Medical History / Comment(s): Father is at the age of 53yrs from a CVA. Medications and Allergies Home Medications Medication Instructions Recorded Confirmed Type DULoxetine HCL [Cymbalta] 120 mg PO HS 05/22/15 03/21/19 History Pravastatin Sodium [Pravachol] 40 mg PO HS 12/26/15 03/21/19 History ARIPiprazole [Abilify] 10 mg PO HS 09/07/16 03/21/19 History Omeprazole [PriLOSEC] 40 mg PO HS 09/07/16 03/21/19 History hydrALAZINE HCL [Apresoline] 100 mg PO TID #90 tab 07/04/17 03/21/19 Rx Thera M Plus 1 tab PO HS 08/05/18 03/21/19 History tiZANidine [Zanaflex] 2 mg PO Q8HR PRN 08/05/18 03/21/19 History Carvedilol [Coreg] 6.25 mg PO BID 11/14/18 03/21/19 History amLODIPine [Norvasc] 10 mg PO DAILY 11/14/18 03/21/19 History Calcium Acetate [PhosLo] 667 mg PO AC-TID #90 cap 11/15/18 03/21/19 Rx Dicyclomine [Bentyl] 20 mg PO Q6H PRN 02/28/19 03/21/19 History Glucagon Emergency Kit 1 mg IM ONCE PRN 02/28/19 03/21/19 History HYDROcodone/APAP 5-325MG [[place] 1 tab PO BID 02/28/19 03/21/19 History 5-325] Insulin Aspart [NovoLOG] See Protocol SQ ACHS 02/28/19 03/21/19 History Insulin Degludec [Tresiba] 30 unit SQ DAILY 02/28/19 03/21/19 History Loratadine [Claritin] 10 mg PO DAILY 02/28/19 03/21/19 History Ondansetron Odt [Zofran ODT] 4 mg SL Q8HR PRN 02/28/19 03/21/19 History cloNIDine HCL [Catapres] 0.1 mg PO TID #90 tab 03/07/19 03/21/19 Rx Allergies Allergy/AdvReac Type Severity Reaction Status Date / Time acetaminophen [From Tylenol] Allergy Unknown Verified 03/21/19 10:00 lisinopril Allergy Unknown Verified 03/21/19 10:00 atorvastatin calcium AdvReac Nausea & Verified 03/21/19 10:00 [From Lipitor] Vomiting/muscle weakness losartan potassium AdvReac Nausea & Verified 03/21/19 10:00 [From Cozaar] Vomiting/hypotension tramadol AdvReac drowsiness Verified 03/21/19 10:00 Physical Exam Vitals: Vital Signs Temp Pulse Pulse Resp BP Pulse Ox 03/22/19 08:15 96 03/22/19 05:58 150/78 03/22/19 05:11 98.4 F 89 16 199/100 95 03/22/19 00:45 16 03/22/19 00:36 90 186/92 03/21/19 21:11 98.4 F 84 16 176/90 97 03/21/19 19:19 98.4 F 83 18 174/96 03/21/19 16:00 80 20 Intake and Output 03/21/19 03/22/19 03/22/19 22:59 06:59 14:59 Intake Total 890 Output Total 4300 Balance -3410 Intake: Oral 590 Hemodialysis 300 Output: Hemodialysis 4300 Other: Voiding Method Toilet Toilet Toilet Urinal Urinal Urinal # Voids 0 1 Weight 86 kg On examination he is on room air, awake alert oriented comfortable HEENT exam no JVP neck is supple no facial asymmetry Lungs are significant for right basal crackles occasional with diminished air entry. Otherwise normal percussion and auscultation rest of the lung matute Heart sounds are unremarkable for any murmur rub gallop seems to be normal sinus rhythm. Abdomen soft nontender no organomegaly status masses Extremity exam was trace edema Neurologically awake alert oriented no asterixis Results - Lab Results Most recent lab results Calcium 8.5 mg/dL (8.4-10.2) 03/22/19 07:19 Phosphorus 3.3 mg/dL (2.5-4.5) 03/21/19 14:39 03/22/19 07:19 03/22/19 07:19 Assessment and Plan Plan: Impression 1. ESRD on dialysis Sunday 4 hours. Last dialysis yesterday with 4 L taken off. He i has a fistula right forearm. Not on a transplant list yet. 2. Admitted with shortness of breath, recently has had bilateral pleural effusion had a right sided pleural effusion paracentesis with a pigtail catheter was removed on 03/07/2019. 3. Type 1 diabetes mellitus with diabetic nephropathy. 4. Anemia of chronic kidney disease hematemesis 10.9 at target 5. Calcium phosphorus within normal range Recommendation 1. His shortness of breath is not explained on the basis of fluid overload but we will dialyze him and see if he can take off about 3 L or 20 half hours. Ultrafiltration and see if he can improve his shortness of breath. He does have a pneumothorax and atelectasis of the right pee on the right side looks like and this may need to be addressed by the pulmonary service to improve his shortness of breath. 2. Maintain Aranesp 40 mics every week. 3. Maintain binders as at home. Thank you for this consultation and end of dictation
[2019-03-22 11:38] LABS: Glucose,Whole Blood 219 mg/dL (75-99)
[2019-03-22] MEDS ORDERED: DARBEPOETIN ALFA 40 MCG/0.4 ML SYRINGE SQ SCH (12:00)
--- NOTE | 2019-03-22 12:15 | P.PN ---
Subjective Progress Note Date: 03/22/19 Principal diagnosis: Right-sided hydropneumothorax, trapped lung. Previous medical history of recent hospitalization for loculated right pleural effusion with placement of right-s ided pigtail catheter and instillation of alteplase, end-stage renal disease with hemodialysis Sunday, Sunday, Sunday, uncontrolled diabetes mellitus with hemoglobin A1c 11.1%, diabetic neuropathy, hypertension, hyperlipidemia, GI bleed, GERD, pericardial effusion with tamponade status post pericardial window, bilateral pleural effusions status post bilateral thoracentesis. The patient is currently sitting up in bed in no acute distress. States his exertional dyspnea has improved. He did receive dialysis yesterday and is to receive dialysis again today. No new concerns. Objective - Vital Signs Vital signs: Vital Signs Temp 98.4 F 03/22/19 05:11 Pulse 89 03/22/19 05:11 Resp 16 03/22/19 05:11 BP 150/78 03/22/19 05:58 Pulse Ox 96 03/22/19 08:15 Intake & Output 03/21/19 03/22/19 03/22/19 18:59 06:59 18:59 Intake Total 890 Output Total 4300 Balance -3410 Weight 86.183 kg 86 kg Intake: Oral 590 Hemodialysis 300 Output: Hemodialysis 4300 Other: Voiding Method Toilet Toilet Urinal Urinal # Voids 0 1 - Constitutional General appearance: Present: cooperative, no acute distress - Respiratory Details: Lungs sounds diminished bilaterally, right greater than left. Respirations even, nonlabored. Currently on 2 L nasal cannula with oxygen saturation 96%. - Cardiovascular Details: S1, S2 present. Regular rate and rhythm. Palpable peripheral pulses bilaterally. Bilateral lower extremity edema present. Right forearm AV fistula present, positive bruit, positive thrill. - Gastrointestinal Gastrointestinal Comment(s): Abdomen soft, nontender, nondistended. Active bowel sounds present 4 quadrants. Tolerating diet. - Genitourinary Genitourinary Comment(s): Anuric - Integumentary Integumentary Comment(s): Skin is warm and dry with evidence of good perfusion. Well-healed surgical scar present mid abdomen. - Neurologic Neurologic: Present: CNII-XII intact - Musculoskeletal Musculoskeletal: Present: gait normal, strength equal bilaterally - Psychiatric Psychiatric: Present: A&O x's 3, appropriate affect, intact judgment & insight - Allied health notes Allied health notes reviewed: nursing - Labs CBC & Chem 7: 03/22/19 07:19 03/22/19 07:19 Labs: Abnormal Lab Results - Last 24 Hours (Table) 03/21/19 03/21/19 03/21/19 Range/Units 14:08 17:28 20:21 RBC (4.30-5.90) m/uL Hgb (13.0-17.5) gm/dL Hct (39.0-53.0) % RDW (11.5-15.5) % Sodium (137-145) mmol/L Chloride (98-107) mmol/L BUN (9-20) mg/dL Creatinine (0.66-1.25) mg/dL Glucose (74-99) mg/dL POC Glucose (mg/dL) 201 H 145 H 192 H (75-99) mg/dL 03/22/19 03/22/19 03/22/19 Range/Units 07:05 07:19 07:19 RBC 4.15 L (4.30-5.90) m/uL Hgb 10.9 L (13.0-17.5) gm/dL Hct 33.9 L (39.0-53.0) % RDW 16.9 H (11.5-15.5) % Sodium 133 L (137-145) mmol/L Chloride 93 L (98-107) mmol/L BUN 27 H (9-20) mg/dL Creatinine 5.09 H (0.66-1.25) mg/dL Glucose 249 H (74-99) mg/dL POC Glucose (mg/dL) 260 H (75-99) mg/dL - Imaging and Cardiology Chest x-ray: report reviewed, image reviewed Assessment and Plan Assessment: 1. Hydropneumothorax 2. Recent hospitalization for loculated right pleural effusion with placement of right-sided pigtail catheter and instillation of alteplase 3. End-stage renal disease with hemodialysis Sunday, Sunday, Sunday 4. Uncontrolled diabetes mellitus with hemoglobin A1c on last admission 11.1% 5. Diabetic neuropathy 6. Hypertension 7. Hyperlipidemia 8. GI bleed 9. Gastroesophageal reflux disease 10. History of pericardial effusion with tamponade status post pericardial window 11. History of bilateral pleural effusions status post bilateral thoracentesis Plan: 1. Dr. Banks discussed surgical treatments with the patient. He is willing to consider thoracoscopy/thoracotomy with decortication. He does understand that surgery is not emergent and we have time to discuss further in light of the fact that he's in no distress and this is not an acute issue but rather chronic. 2. Wean O2 as tolerated. Encourage and some spirometry is 10 times every hour while awake. 3. Increase activity, ambulate as tolerated. 4. Avoid nephrotoxins, hemodialysis per nephrology. 5. Medical management other comorbid conditions per primary care, pulmonology, nephrology. 6. More recommendations to follow. Time with Patient: Greater than 30
--- NOTE | 2019-03-22 16:12 | P.PN ---
Subjective 47-year-old male came in with the acute hypoxic respiratory failure secondary to bilateral pleural effusions with a right-sided loculated left effusion patient had similar effusion had a pigtail catheter in the past which was removed and patient also has pulmonary edema and the patient did undergo hemodialysis yesterday and today which improved his shortness of breath but patient probably will need decortication procedure and the carotid thoracic surgery evaluated the patient and did discuss reviewed decortication procedure with the patient and patient appears to be labeled for that Constitutional: Denied any fatigue denied any fever. Cardio vascular: denied any chest pain, palpitations Gastrointestinal denied any nausea vomiting Pulmonary: As mentioned in HPI Neurologic denied any new focal deficits All inpatient medications were reviewed and appropriate changes in these medications as dictated in the interval history and assessment and plan. Objective - Vital Signs Vital signs: Vital Signs Temp 98 F 03/22/19 12:14 Pulse 76 03/22/19 12:14 Resp 16 03/22/19 12:14 BP 152/81 03/22/19 12:14 Pulse Ox 97 03/22/19 12:14 Intake & Output 03/21/19 03/22/19 03/22/19 18:59 06:59 18:59 Intake Total 890 400 Output Total 4300 Balance -3410 400 Weight 86.183 kg 86 kg Intake: Oral 590 400 Hemodialysis 300 Output: Hemodialysis 4300 Other: Voiding Method Toilet Toilet Toilet Urinal Urinal Urinal # Voids 0 1 2 - Exam PHYSICAL EXAMINATION: GENERAL: The patient is alert and oriented x3, not in any acute distress. Well developed, well nourished. HEENT: Pupils are round and equally reacting to light. EOMI. No scleral icterus. No conjunctival pallor. Normocephalic, atraumatic. No pharyngeal erythema. No thyromegaly. CARDIOVASCULAR: S1 and S2 present. No murmurs, rubs, or gallops. PULMONARY: She does have good air entry bilateral lung matute, crackles improved compared to yesterday ABDOMEN: Soft, nontender, nondistended, normoactive bowel sounds. No palpable organomegaly. MUSCULOSKELETAL: No joint swelling or deformity. EXTREMITIES: No cyanosis, clubbing, or pedal edema. NEUROLOGICAL: Gross neurological examination did not reveal any focal deficits. SKIN: No rashes. - Labs CBC & Chem 7: 03/22/19 07:19 03/22/19 07:19 Labs: Abnormal Lab Results - Last 24 Hours (Table) 03/21/19 03/21/19 03/22/19 Range/Units 17:28 20:21 07:05 RBC (4.30-5.90) m/uL Hgb (13.0-17.5) gm/dL Hct (39.0-53.0) % RDW (11.5-15.5) % Sodium (137-145) mmol/L Chloride (98-107) mmol/L BUN (9-20) mg/dL Creatinine (0.66-1.25) mg/dL Glucose (74-99) mg/dL POC Glucose (mg/dL) 145 H 192 H 260 H (75-99) mg/dL 03/22/19 03/22/19 03/22/19 Range/Units 07:19 07:19 11:37 RBC 4.15 L (4.30-5.90) m/uL Hgb 10.9 L (13.0-17.5) gm/dL Hct 33.9 L (39.0-53.0) % RDW 16.9 H (11.5-15.5) % Sodium 133 L (137-145) mmol/L Chloride 93 L (98-107) mmol/L BUN 27 H (9-20) mg/dL Creatinine 5.09 H (0.66-1.25) mg/dL Glucose 249 H (74-99) mg/dL POC Glucose (mg/dL) 219 H (75-99) mg/dL Assessment and Plan Plan: -Acute hypoxic respiratory failure secondary to bilateral pleural effusions secondary to volume overload from renal failure and pneumothorax may be contributing to the cardiac thoracic surgery was consulted from ER. Patient will be dialyzed today and nephrology evaluated the patient patient still has the right-sided loculated effusion and some pneumothorax and the cardiothoracic surgery is considering decortication procedure -Bilateral pleural effusions: Suspect volume overload from end-stage liver disease hemodialysis dependent nephrology was consulted -elevated troponin secondary to end-stage disease -Type 2 diabetes mellitus patient will be resumed on his home regimen and the along with sliding scale titrate insulin depending on sliding scale requirements -Asthma without any acute exacerbation -Hyperlipidemia Hypertension -Diabetic nephropathy, diabetic retinopathy and neuropathy -Metabolic bone disease and hyperphosphatemia secondary to end-stage renal disease and patient will be continued on phosphate binders Patient will need pharmacologic DVT and GI prophylaxis
[2019-03-22 17:20] LABS: Glucose,Whole Blood 57 mg/dL (75-99)
[2019-03-22 17:43] LABS: Glucose,Whole Blood 75 mg/dL (75-99)
[2019-03-22 20:09] LABS: Glucose,Whole Blood 102 mg/dL (75-99)
[2019-03-22] MEDS: MULTIVITAMINS, THERA 1 EACH TAB PO SCH (20:31)
[2019-03-22] MEDS: PRAVASTATIN SODIUM 40 MG TAB PO SCH (20:31)
[2019-03-22] MEDS: ARIPiprazole 10 MG TAB PO SCH (20:31)
[2019-03-22] MEDS: PANTOPRAZOLE 40 MG TABLET PO SCH (20:31)
[2019-03-22] MEDS: DULoxetine HCL 60 MG CAPSULE.DR PO SCH (20:31)
[2019-03-23] MEDS: HYDROmorphone 0.5 MG/0.5 ML SYRINGE IVP PRN ×8 (02:02→23:24)
[2019-03-23 02:09] LABS: Glucose,Whole Blood 112 mg/dL (75-99)
[2019-03-23 07:07] LABS: Glucose,Whole Blood 180 mg/dL (75-99)
[2019-03-23] MEDS: hydrALAZINE HCL 50 MG TAB PO SCH ×3 (07:42→21:02)
[2019-03-23] MEDS: CALCIUM ACETATE 667 MG CAP PO SCH ×3 (07:42→16:36)
[2019-03-23] MEDS: amLODIPine 10 MG TAB PO SCH (07:43)
[2019-03-23] MEDS: INSULIN ASPART (NovoLOG) 100 UNIT/ML VIAL SQ SCH ×4 (07:43→20:29)
[2019-03-23] MEDS: LORATADINE 10 MG TAB PO SCH (07:43)
[2019-03-23] MEDS: CARVEDILOL 6.25 MG TAB PO SCH ×2 (07:43→16:36)
[2019-03-23] MEDS: cloNIDine HCL 0.1 MG TAB PO SCH ×3 (07:44→21:03)
[2019-03-23] MEDS: HYDROcodone/APAP 5-325MG 1 EACH TAB PO SCH ×2 (07:58→21:03)
[2019-03-23] MEDS: INSULIN DETEMIR (LEVEMIR) 100 UNIT/ML SYR SQ SCH (08:17)
[2019-03-23 08:41] LABS: Calcium 8.5 mg/dL (8.4-10.2); Potassium 4.6 mmol/L (3.5-5.1)
--- NOTE | 2019-03-23 09:56 | P.PN ---
Subjective Progress Note Date: 03/23/19 Principal diagnosis: This is a 39-year-old patient with type 1 diabetes for about 20 some years, ESRD on dialysis for 2 and half years with the fistula in his right forearm. He is not on a transplant list yet. He came in because of shortness of breath. He was dialyzed the day before yesterday at [place] for 4 hours for 4 L taken off. Because of the persistent shortness of breath I dialyze him yesterday again for 3 L. He tolerated very well without any cramps or dizziness. But his shortness of breath has not improved. It is thought that the shortness of breath is from that select his of the right lung and a tab lung which needs decortication. Attempted pleural tap has not helped. He had a good appetite no nausea vomiting fever chills cough but he had mild te mperature this morning of More recently Patient was admitted here recently on 02/28/2019 and discharge 03/07/2019. He came in with intractable nausea and vomiting at the time. He was found to have new skin effusion and a right pleural pigtail catheter was placed on 03/03/2019. This was discontinued before his discharge. Objective - Vital Signs Vital signs: Vital Signs Temp 99.2 F 03/23/19 04:42 Pulse 83 03/23/19 04:42 Resp 16 03/23/19 04:42 BP 148/76 03/23/19 04:42 Pulse Ox 96 03/23/19 04:42 Intake & Output 03/22/19 03/23/19 03/23/19 18:59 06:59 18:59 Intake Total 400 590 Balance 400 590 Weight 86 kg Intake: Oral 400 590 Other: Voiding Method Toilet Toilet Urinal Urinal # Voids 2 On examination is awake alert oriented comfortable HEENT exam no JVP neck is supple no facial asymmetry Lungs are significant for diminished breath sounds in the right side and a few occasional crackles on the left as well. Heart sounds are unremarkable for any murmur rub gallop Abdomen soft nontender no organomegaly status masses Extremity exam no edema Neurologically awake alert oriented - Labs CBC & Chem 7: 03/22/19 07:19 03/23/19 07:49 Labs: Abnormal Lab Results - Last 24 Hours (Table) 03/22/19 03/22/19 03/22/19 Range/Units 11:37 17:19 20:08 Sodium (137-145) mmol/L Chloride (98-107) mmol/L BUN (9-20) mg/dL Creatinine (0.66-1.25) mg/dL Glucose (74-99) mg/dL POC Glucose (mg/dL) 219 H 57 L 102 H (75-99) mg/dL 03/23/19 03/23/19 03/23/19 Range/Units 02:08 07:06 07:49 Sodium 130 L (137-145) mmol/L Chloride 93 L (98-107) mmol/L BUN 26 H (9-20) mg/dL Creatinine 5.26 H (0.66-1.25) mg/dL Glucose 232 H (74-99) mg/dL POC Glucose (mg/dL) 112 H 180 H (75-99) mg/dL Assessment and Plan Plan: Impression 1. ESRD on dialysis Sunday 4 hours. Last dialysis yesterday 3 L taken off and prior to that on Sunday had hemodialysis at [facility] with 4 L taken off. He i has a fistula right forearm. Not on a transplant list yet. 2. Admitted with shortness of breath, recently has had bilateral pleural effusion had a right sided pleural effusion paracentesis with a pigtail catheter was removed on 03/07/2019. He has Lungs which is causing his shortness of breath 3. Type 1 diabetes mellitus with diabetic nephropathy. 4. Anemia of chronic kidney disease hematemesis 10.9 at target 5. Calcium phosphorus within normal range Recommendation 1. He will need surgery and decortication which is being discussed with the surgical team and pulmonary. 2. Will dialyze him tomorrow again for 4 L and 4 hours. 2. Maintain Aranesp 40 mics every week. 3. Maintain binders as at home.
--- NOTE | 2019-03-23 10:32 | P.PN ---
Subjective Progress Note Date: 03/23/19 Principal diagnosis: Right-sided hydropneumothorax, trapped lung. Previous medical history of recent hospitalization for loculated right pleural effusion with placement of right-s ided pigtail catheter and instillation of alteplase, end-stage renal disease with hemodialysis Sunday, Sunday, Sunday, uncontrolled diabetes mellitus with hemoglobin A1c 11.1%, diabetic neuropathy, hypertension, hyperlipidemia, GI bleed, GERD, pericardial effusion with tamponade status post pericardial window, bilateral pleural effusions status post bilateral thoracentesis. The patient is currently sitting up in bed in no acute distress. States his exertional dyspnea continues to improve. He did receive dialysis the last 2 days. No new concerns. Objective - Vital Signs Vital signs: Vital Signs Temp 99.2 F 03/23/19 04:42 Pulse 83 03/23/19 04:42 Resp 16 03/23/19 04:42 BP 148/76 03/23/19 04:42 Pulse Ox 96 03/23/19 04:42 Intake & Output 03/22/19 03/23/19 03/23/19 18:59 06:59 18:59 Intake Total 400 590 Balance 400 590 Weight 86 kg Intake: Oral 400 590 Other: Voiding Method Toilet Toilet Urinal Urinal # Voids 2 - Constitutional General appearance: Present: cooperative, no acute distress - Respiratory Details: Lungs sounds diminished bilaterally, right greater than left. Respirations even, nonlabored. Currently on 2 L nasal cannula with oxygen saturation 96%. - Cardiovascular Details: S1, S2 present. Regular rate and rhythm. Palpable peripheral pulses bilaterally. Bilateral lower extremity edema present. Right forearm AV fistula present, positive bruit, positive thrill. - Gastrointestinal Gastrointestinal Comment(s): Abdomen soft, nontender, nondistended. Active bowel sounds present 4 quadrants. Tolerating diet. - Genitourinary Genitourinary Comment(s): Patient voids very little - Integumentary Integumentary Comment(s): Skin is warm and dry with evidence of good perfusion. Well-healed surgical scar present mid abdomen. - Neurologic Neurologic: Present: CNII-XII intact - Musculoskeletal Musculoskeletal: Present: strength equal bilaterally - Psychiatric Psychiatric: Present: A&O x's 3, appropriate affect, intact judgment & insight - Allied health notes Allied health notes reviewed: nursing - Labs CBC & Chem 7: 03/22/19 07:19 03/23/19 07:49 Labs: Abnormal Lab Results - Last 24 Hours (Table) 03/22/19 03/22/19 03/22/19 Range/Units 11:37 17:19 20:08 Sodium (137-145) mmol/L Chloride (98-107) mmol/L BUN (9-20) mg/dL Creatinine (0.66-1.25) mg/dL Glucose (74-99) mg/dL POC Glucose (mg/dL) 219 H 57 L 102 H (75-99) mg/dL 03/23/19 03/23/19 03/23/19 Range/Units 02:08 07:06 07:49 Sodium 130 L (137-145) mmol/L Chloride 93 L (98-107) mmol/L BUN 26 H (9-20) mg/dL Creatinine 5.26 H (0.66-1.25) mg/dL Glucose 232 H (74-99) mg/dL POC Glucose (mg/dL) 112 H 180 H (75-99) mg/dL Assessment and Plan Assessment: 1. Hydropneumothorax 2. Recent hospitalization for loculated right pleural effusion with placement of right-sided pigtail catheter and instillation of alteplase 3. End-stage renal disease with hemodialysis Sunday, Sunday, Sunday 4. Uncontrolled diabetes mellitus with hemoglobin A1c on last admission 11.1% 5. Diabetic neuropathy 6. Hypertension 7. Hyperlipidemia 8. GI bleed 9. Gastroesophageal reflux disease 10. History of pericardial effusion with tamponade status post pericardial window 11. History of bilateral pleural effusions status post bilateral thoracentesis Plan: 1. Dr. Banks discussed surgical treatments with the patient yesterday. The patient is willing to consider thoracoscopy/thoracotomy with decortication. He does understand that surgery is not emergent and we have time to discuss further in light of the fact that he's in no distress and this is not an acute issue but rather chronic. 2. Wean O2 as tolerated. Encourage and some spirometry is 10 times every hour while awake. 3. Increase activity, ambulate as tolerated. 4. Avoid nephrotoxins, hemodialysis per nephrology. 5. Medical management other comorbid conditions per primary care, pulmonology, nephrology. 6. More recommendations to follow. Time with Patient: Greater than 30
[2019-03-23 11:23] LABS: Glucose,Whole Blood 231 mg/dL (75-99)
--- NOTE | 2019-03-23 11:38 | P.PN ---
Subjective Progress Note Date: 03/23/19 Principal diagnosis: Dyspnea and pleural effusion. This a 39-year-old white male patient of Dr. 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 Patient was recently hospitalized for loculated right pleural effusion, and int erventional radiology placed ultrasound-guided right pleural pigtail catheter, patient received alteplase infusions, and there was serosanguineous drainage draining from the chest tube. However following the placement, and drainage of the pleural fluid the right lung did not reexpand, although the drainage subsided and pigtail catheter was discontinued. A total of 3 L of pleural drainage was drained over a period of a few days. Pleural fluid did not show cytologically malignant cells. Pleural fluid cultures showed no growth. Patient came into the hospital on 03/21/2019 with complaints of worsening shortness of breath, chest x-ray showed large right-sided hydropneumothorax measuring 40% similar in appearance to the prior exam. Today is his regular hemodialysis day. Patient was also found to have significantly elevated blood sugar. Does complain of exertional dyspnea, but no significant distress, no complaint of chest pain, no cough, no phlegm production, no fever or chills. Chest x-ray showed a bilateral pleural effusions with a loculated right pneumothorax which is unchanged from the previous chest x-ray. Patient was transferred from [facility] to [facility] where consulted for evaluation of his shortness of breath. The patient is seen today 03/22/2019 in follow-up on the regular medical floor. He is awake and alert in no acute distress. Breathing easier today as compared to yesterday. His chest x-ray is stable. Continues with a small to moderate sized lateral right basilar hydropneumothorax with adjacent right lower lobe atelectasis. He is maintaining O2 saturations in the mid 90s on 2 L/m per nasal cannula. He is afebrile. White count 6.6. Hemoglobin 10.9. He is due for hemodialysis today. Reevaluated today on 03/23/2019, patient is sitting in bed, asymptomatic, on 2 L nasal cannula, O2 saturations 96%. Patient continues to have a loculated right- sided pneumothorax, and I explained to him today that either he has to leave it alone and live with it as it is, or potentially consider a thoracic surgery opinion regarding potential decortication if he is felt to be a good candidate for such procedure. Patient is yet to hear from thoracic surgery regarding their recommendation. And at this point I believe the patient could be discharged home, and have follow-up on outpatient basis. Patient should also consider a second opinion regarding his loculated pneumothorax. And trapped lung. Placing a Pleurx catheter in the same place, will not help improve his lung. Objective - Vital Signs Vital signs: Vital Signs Temp 99.2 F 03/23/19 04:42 Pulse 83 03/23/19 04:42 Resp 16 03/23/19 04:42 BP 148/76 03/23/19 04:42 Pulse Ox 96 03/23/19 04:42 Intake & Output 03/22/19 03/23/19 03/23/19 18:59 06:59 18:59 Intake Total 400 590 Balance 400 590 Weight 86 kg Intake: Oral 400 590 Other: Voiding Method Toilet Toilet Toilet Urinal Urinal # Voids 2 - Exam GENERAL EXAM: Alert, pleasant, 39-year-old male, in no acute distress, HEAD: Normocephalic/atraumatic. EYES: Normal reaction of pupils, equal size. Conjunctiva pink, sclera white. NOSE: Clear with pink turbinates. THROAT: No erythema or exudates. NECK: No masses, no JVD, no thyroid enlargement, no adenopathy. CHEST: No chest wall deformity. Symmetrical expansion. LUNGS: Equal air entry with diminished breath sounds at bilateral bases, with basilar crackles, dullness to percussion on the right side CVS: Regular rate and rhythm, normal S1 and S2, no gallops, no murmurs, no rubs ABDOMEN: Soft, nontender. No hepatosplenomegaly, normal bowel sounds, no guarding or rigidity. EXTREMITIES: No clubbing, 2+ pitting edema, no cyanosis, 2+ pulses and upper and lower extremities. MUSCULOSKELETAL: Muscle strength and tone normal. SPINE: No scoliosis or deformity SKIN: No rashes CENTRAL NERVOUS SYSTEM: No focal deficits, tone is normal in all 4 extremities. PSYCHIATRIC: Alert and oriented -3. Appropriate affect. Intact judgment and insight. - Labs CBC & Chem 7: 03/22/19 07:19 03/23/19 07:49 Labs: Abnormal Lab Results - Last 24 Hours (Table) 03/22/19 03/22/19 03/22/19 Range/Units 11:37 17:19 20:08 Sodium (137-145) mmol/L Chloride (98-107) mmol/L BUN (9-20) mg/dL Creatinine (0.66-1.25) mg/dL Glucose (74-99) mg/dL POC Glucose (mg/dL) 219 H 57 L 102 H (75-99) mg/dL 03/23/19 03/23/19 03/23/19 Range/Units 02:08 07:06 07:49 Sodium 130 L (137-145) mmol/L Chloride 93 L (98-107) mmol/L BUN 26 H (9-20) mg/dL Creatinine 5.26 H (0.66-1.25) mg/dL Glucose 232 H (74-99) mg/dL POC Glucose (mg/dL) 112 H 180 H (75-99) mg/dL 03/23/19 Range/Units 11:22 Sodium (137-145) mmol/L Chloride (98-107) mmol/L BUN (9-20) mg/dL Creatinine (0.66-1.25) mg/dL Glucose (74-99) mg/dL POC Glucose (mg/dL) 231 H (75-99) mg/dL Assessment and Plan Assessment: Impression: 1 acute hypoxic respiratory failure secondary to fluid overload secondary to his underlying renal failure, and secondary to loculated right-sided pleural effusion with trapped lung, unable to expand. 2 chronic right-sided loculated pneumothorax./Trapped lung, 3 benign essential hypertension 4 hyperlipidemia 5 type 1 diabetes and previous history of DKA 6 end-stage renal disease on hemodialysis 7 multiple comorbidities including GERD, history of GI bleeding, peripheral vessel occlusive disease Recommendation: Discussed with the patient his whole issue regarding his right sided loculated pneumothorax, and suggested that he seeks opinion from our thoracic surgery, and should possibly consider a second opinion if he likes. Again I believe at this point either he would have leave the right-sided pneumothorax as it is, or potentially be considered for decortication. Patient clearly has a trapped lung. Time with Patient: Less than 30
--- NOTE | 2019-03-23 15:05 | P.PN ---
Subjective 47-year-old male came in with the acute hypoxic respiratory failure secondary to bilateral pleural effusions with a right-sided loculated left effusion patient had similar effusion had a pigtail catheter in the past which was removed and patient also has pulmonary edema and the patient did undergo hemodialysis yesterday and today which improved his shortness of breath but patient probably will need decortication procedure and the carotid thoracic surgery evaluated the patient and did discuss reviewed decortication procedure with the patient and patient appears to be labeled for that. 03/23/2019 Cardiothoracic surgery will make induration regarding trapped lung. Patient will undergo hemodialysis tomorrow. Patient is saturating 97% on 2 L will discuss any oxygen and recheck his sats denied any shortness of breath. Constitutional: Denied any fatigue denied any fever. Cardio vascular: denied any chest pain, palpitations Gastrointestinal denied any nausea vomiting Pulmonary: As mentioned in HPI Neurologic denied any new focal deficits All inpatient medications were reviewed and appropriate changes in these medications as dictated in the interval history and assessment and plan. Objective - Vital Signs Vital signs: Vital Signs Temp 98.9 F 03/23/19 12:20 Pulse 79 03/23/19 12:20 Resp 16 03/23/19 12:20 BP 151/77 03/23/19 12:20 Pulse Ox 96 03/23/19 12:20 Intake & Output 03/22/19 03/23/19 03/23/19 18:59 06:59 18:59 Intake Total 244 493 6365 Balance 095 719 0955 Weight 86 kg Intake: Oral 276 139 1826 Other: Voiding Method Toilet Toilet Toilet Urinal Urinal # Voids 2 1 - Exam PHYSICAL EXAMINATION: GENERAL: The patient is alert and oriented x3, not in any acute distress. Well developed, well nourished. HEENT: Pupils are round and equally reacting to light. EOMI. No scleral icterus. No conjunctival pallor. Normocephalic, atraumatic. No pharyngeal erythema. No thyromegaly. CARDIOVASCULAR: S1 and S2 present. No murmurs, rubs, or gallops. PULMONARY: She does have good air entry bilateral lung matute, crackles improved compared to yesterday ABDOMEN: Soft, nontender, nondistended, normoactive bowel sounds. No palpable organomegaly. MUSCULOSKELETAL: No joint swelling or deformity. EXTREMITIES: No cyanosis, clubbing, or pedal edema. NEUROLOGICAL: Gross neurological examination did not reveal any focal deficits. SKIN: No rashes. - Labs CBC & Chem 7: 03/22/19 07:19 03/23/19 07:49 Labs: Abnormal Lab Results - Last 24 Hours (Table) 03/22/19 03/22/19 03/23/19 Range/Units 17:19 20:08 02:08 Sodium (137-145) mmol/L Chloride (98-107) mmol/L BUN (9-20) mg/dL Creatinine (0.66-1.25) mg/dL Glucose (74-99) mg/dL POC Glucose (mg/dL) 57 L 102 H 112 H (75-99) mg/dL 03/23/19 03/23/19 03/23/19 Range/Units 07:06 07:49 11:22 Sodium 130 L (137-145) mmol/L Chloride 93 L (98-107) mmol/L BUN 26 H (9-20) mg/dL Creatinine 5.26 H (0.66-1.25) mg/dL Glucose 232 H (74-99) mg/dL POC Glucose (mg/dL) 180 H 231 H (75-99) mg/dL Assessment and Plan Plan: -Acute hypoxic respiratory failure secondary to bilateral pleural effusions secondary to volume overload from renal failure and pneumothorax may be contributing to the cardiac thoracic surgery was consulted from ER. Patient will be dialyzed today and nephrology evaluated the patient patient still has the right-sided loculated effusion and some pneumothorax and the cardiothoracic surgery is considering decortication procedure -Bilateral pleural effusions: Suspect volume overload from end-stage liver disease hemodialysis dependent nephrology was consulted -elevated troponin secondary to end-stage disease -Type 2 diabetes mellitus patient will be resumed on his home regimen and the along with sliding scale titrate insulin depending on sliding scale requirements -Asthma without any acute exacerbation -Hyperlipidemia Hypertension -Diabetic nephropathy, diabetic retinopathy and neuropathy -Metabolic bone disease and hyperphosphatemia secondary to end-stage renal disease and patient will be continued on phosphate binders Patient will need pharmacologic DVT and GI prophylaxis
[2019-03-23 17:20] LABS: Glucose,Whole Blood 89 mg/dL (75-99)
[2019-03-23 20:08] LABS: Glucose,Whole Blood 90 mg/dL (75-99)
[2019-03-23] MEDS: DULoxetine HCL 60 MG CAPSULE.DR PO SCH (21:02)
[2019-03-23] MEDS: PANTOPRAZOLE 40 MG TABLET PO SCH (21:02)
[2019-03-23] MEDS: MULTIVITAMINS, THERA 1 EACH TAB PO SCH (21:02)
[2019-03-23] MEDS: ARIPiprazole 10 MG TAB PO SCH (21:02)
[2019-03-23] MEDS: PRAVASTATIN SODIUM 40 MG TAB PO SCH (21:02)
[2019-03-23 22:46] LABS: Glucose,Whole Blood 49 mg/dL (75-99)
[2019-03-23 23:03] LABS: Glucose,Whole Blood 54 mg/dL (75-99)
[2019-03-23 23:32] LABS: Glucose,Whole Blood 125 mg/dL (75-99)
[2019-03-24] MEDS: HYDROmorphone 0.5 MG/0.5 ML SYRINGE IVP PRN ×4 (02:21→12:49)
[2019-03-24 06:57] LABS: Glucose,Whole Blood 217 mg/dL (75-99)
--- NOTE | 2019-03-24 07:10 | XR ---
EXAM: XR Chest, 2 Views CLINICAL HISTORY: ITS.REASON XR Reason: right effusion TECHNIQUE: Frontal and lateral views of the chest. COMPARISON: 03/22/17 FINDINGS: Lungs: Slight improvement of opacity in the right lower lung. Slight worsening left basilar airspace disease and/or increase in effusion. No new consolidation. Pleural space: Persistent loculated hydropneumothorax in the lateral and lower aspect of the right hemithorax. Noting difference in technique, no significant change is noted. Heart: Stable mildly enlarged cardiovascular silhouette. Mediastinum: Unremarkable. Bones/joints: Unremarkable. IMPRESSION: 1. Stable focal hydropneumothorax in the right lower lung. 2. Slight worsening left basilar airspace disease and/or increase in left effusion.
[2019-03-24] MEDS: HYDROcodone/APAP 5-325MG 1 EACH TAB PO SCH (08:27)
[2019-03-24] MEDS: hydrALAZINE HCL 50 MG TAB PO SCH ×2 (08:31→18:04)
[2019-03-24] MEDS: cloNIDine HCL 0.1 MG TAB PO SCH ×2 (08:31→18:04)
[2019-03-24] MEDS: CARVEDILOL 6.25 MG TAB PO SCH ×2 (08:31→18:05)
[2019-03-24] MEDS: LORATADINE 10 MG TAB PO SCH (08:31)
[2019-03-24] MEDS: amLODIPine 10 MG TAB PO SCH (08:31)
[2019-03-24] MEDS: CALCIUM ACETATE 667 MG CAP PO SCH ×3 (08:33→18:04)
[2019-03-24] MEDS: INSULIN ASPART (NovoLOG) 100 UNIT/ML VIAL SQ SCH ×2 (08:33→12:49)
[2019-03-24] MEDS: INSULIN DETEMIR (LEVEMIR) 100 UNIT/ML SYR SQ SCH (08:34)
[2019-03-24 10:20] LABS: Calcium 8.5 mg/dL (8.4-10.2); Potassium 4.4 mmol/L (3.5-5.1)
[2019-03-24 11:56] LABS: Glucose,Whole Blood 247 mg/dL (75-99)
--- NOTE | 2019-03-24 12:14 | PN ---
PROGRESS NOTE Patient is seen for followup for end-stage renal disease. He was admitted to the hospital with volume overload. Patient has been dialyzed and has had extra treatments. He is scheduled for hemodialysis today. PHYSICAL EXAMINATION: This morning, blood pressure was 136/67, heart rate 80 per minute. Patient is afebrile. Examination of the heart S1, S2. Examination of the lungs, bilateral breath sounds are heard. Abdomen is soft, nontender. Examination of the lower extremities chronic skin changes. Edema 1 to 2+ bilaterally. LABS: Show sodium 128, potassium 4.4, BUN 46, serum creatinine 6.97. ASSESSMENT: 1. End-stage renal disease, on hemodialysis on a Sunday, Sunday, Sunday schedule. 2. Hypervolemic, hyponatremia. 3. Severe volume overload, slowly improving. 4. Type 2 diabetes. 5. Hypertension. Partly volume sensitive. 6. Anemia of chronic disease. PLAN: Hemodialysis today. Increase UF as tolerated. MMODL / IJN: [id number] /
--- NOTE | 2019-03-24 12:28 | P.PN ---
Subjective Progress Note Date: 03/24/19 Principal diagnosis: Right-sided hydropneumothorax, trapped lung. Previous medical history of recent hospitalization for loculated right pleural effusion with placement of right-s ided pigtail catheter and instillation of alteplase, end-stage renal disease with hemodialysis Sunday, Sunday, Sunday, uncontrolled diabetes mellitus with hemoglobin A1c 11.1%, diabetic neuropathy, hypertension, hyperlipidemia, GI bleed, GERD, pericardial effusion with tamponade status post pericardial window, bilateral pleural effusions status post bilateral thoracentesis. The patient is currently sitting up in bed in no acute distress. States his exertional dyspnea continues to improve. He is currently on room air. He is to receive dialysis again today. No new concerns. Objective - Vital Signs Vital signs: Vital Signs Temp 98.5 F 03/24/19 05:00 Pulse 80 03/24/19 05:00 Resp 16 03/24/19 05:00 BP 136/67 03/24/19 05:00 Pulse Ox 90 L 03/24/19 05:00 Intake & Output 03/23/19 03/24/19 03/24/19 18:59 06:59 18:59 Intake Total 1150 Balance 1150 Weight 86 kg Intake: Oral 1150 Other: Voiding Method Toilet Toilet # Voids 1 1 - Constitutional General appearance: Present: cooperative, no acute distress - Respiratory Details: Lungs sounds diminished bilaterally. Respirations even, nonlabored. Currently on room air with oxygen saturation 90-95%. Able to achieve 1000 mL on his incentive spirometry. Strong cough. - Cardiovascular Details: S1, S2 present. Regular rate and rhythm. Palpable peripheral pulses bilaterally. Bilateral lower extremity edema present. Right forearm AV fistula present, positive bruit, positive thrill. - Gastrointestinal Gastrointestinal Comment(s): Abdomen soft, nontender, nondistended. Active bowel sounds present 4 quadrants. Tolerating diet. - Genitourinary Genitourinary Comment(s): Patient voids very little - Integumentary Integumentary Comment(s): Skin is warm and dry with evidence of good perfusion. - Neurologic Neurologic: Present: CNII-XII intact - Musculoskeletal Musculoskeletal: Present: gait normal, strength equal bilaterally - Psychiatric Psychiatric: Present: A&O x's 3, appropriate affect, intact judgment & insight - Allied health notes Allied health notes reviewed: nursing - Labs CBC & Chem 7: 03/22/19 07:19 03/24/19 09:31 Labs: Abnormal Lab Results - Last 24 Hours (Table) 03/23/19 03/23/19 03/23/19 Range/Units 22:46 23:02 23:20 Sodium (137-145) mmol/L Chloride (98-107) mmol/L BUN (9-20) mg/dL Creatinine (0.66-1.25) mg/dL Glucose (74-99) mg/dL POC Glucose (mg/dL) 49 L 54 L 125 H (75-99) mg/dL 03/24/19 03/24/19 03/24/19 Range/Units 06:55 09:31 11:31 Sodium 128 L (137-145) mmol/L Chloride 89 L (98-107) mmol/L BUN 46 H (9-20) mg/dL Creatinine 6.97 H (0.66-1.25) mg/dL Glucose 300 H (74-99) mg/dL POC Glucose (mg/dL) 217 H 247 H (75-99) mg/dL - Imaging and Cardiology Chest x-ray: report reviewed, image reviewed Assessment and Plan Assessment: 1. Hydropneumothorax 2. Recent hospitalization for loculated right pleural effusion with placement of right-sided pigtail catheter and instillation of alteplase 3. End-stage renal disease with hemodialysis Sunday, Sunday, Sunday 4. Uncontrolled diabetes mellitus with hemoglobin A1c on last admission 11.1% 5. Diabetic neuropathy 6. Hypertension 7. Hyperlipidemia 8. GI bleed 9. Gastroesophageal reflux disease 10. History of pericardial effusion with tamponade status post pericardial window 11. History of bilateral pleural effusions status post bilateral thoracentesis Plan: 1. Surgical treatments continue to be discussed with the patient. He has indicated that he wants surgery to improve his lung so he does not have to keep coming back to the emergency room with difficulty breathing. He does understand that surgery is not emergent, this is not an acute issue but rather chronic. The patient is currently stable on room air. He may be discharged to home when okay with primary care service, he may follow up in our office with Dr. Ramirez and an appointment has been made. This was discussed with the patient. 2. Encourage and some spirometry is 10 times every hour while awake. 3. Increase activity, ambulate as tolerated. 4. Avoid nephrotoxins, hemodialysis per nephrology. 5. Medical management other comorbid conditions per primary care, pulmonology, nephrology. 6. More recommendations to follow. Time with Patient: Greater than 30
[2019-03-24] MEDS ORDERED: HYDROmorphone 1 MG/ML 1 ML SYRINGE IVP STA (14:13)
--- NOTE | 2019-03-24 14:17 | P.DS ---
Providers Date of admission: 03/22/19 11:38 Attending physician: Susan Burciaga Consults: 03/21/19 11:15 Consult Physician Routine Consulting Provider: Sachin Corey Consult Reason/Comments: Bilateral pleural effusions, loculated right pneumothorax, stable Do you want consulting provider notified?: Yes 03/21/19 11:16 Consult Physician Routine Consulting Provider: Jojo Charles Consult Reason/Comments: Dialysis Do you want consulting provider notified?: Yes 03/21/19 12:21 Consult Physician Routine Consulting Provider: Min Choudhary Consult Reason/Comments: hydropneumothrax Do you want consulting provider notified?: Yes Primary care physician: Janis L [facility] Course: 47-year-old male came in with the acute hypoxic respiratory failure secondary to bilateral pleural effusions with a right-sided loculated left effusion patient had similar effusion had a pigtail catheter in the past which was removed and patient also has pulmonary edema and the patient did undergo hemodialysis yesterday and today which improved his shortness of breath but patient probably will need decortication procedure and the carotid thoracic surgery evaluated the patient and did discuss reviewed decortication procedure with the patient and patient appears to be labeled for that. 03/23/2019 Cardiothoracic surgery will make induration regarding trapped lung. Patient will undergo hemodialysis tomorrow. Patient is saturating 97% on 2 L will discuss any oxygen and recheck his sats denied any shortness of breath. 03/24/2019 Cardiothoracic surgery valid the patient and they do not believe there will be any benefit with further surgical intervention patient patient underwent hemodialysis patient is off oxygen at this time patient doesn't have any more pulmonary edema. Patient will be discharged today to follow with cardiac thoracic surgery nephrology as outpatient. PHYSICAL EXAMINATION: GENERAL: The patient is alert and oriented x3, not in any acute distress. Well developed, well nourished. HEENT: Pupils are round and equally reacting to light. EOMI. No scleral icterus. No conjunctival pallor. Normocephalic, atraumatic. No pharyngeal erythema. No thyromegaly. CARDIOVASCULAR: S1 and S2 present. No murmurs, rubs, or gallops. PULMONARY: She does have good air entry bilateral lung matute, crackles improved compared to yesterday ABDOMEN: Soft, nontender, nondistended, normoactive bowel sounds. No palpable organomegaly. MUSCULOSKELETAL: No joint swelling or deformity. EXTREMITIES: No cyanosis, clubbing, or pedal edema. NEUROLOGICAL: Gross neurological examination did not reveal any focal deficits. SKIN: No rashes. Assessment and Plan Plan: -Acute hypoxic respiratory failure secondary to bilateral pleural effusions secondary to volume overload from renal failure and pneumothorax may be contributing to the cardiac thoracic surgery valid the patient and patient may not benefit from a any further surgical intervention for his trapped lung and chronic hydropneumothorax. Although his volume overload is better and patient is on room air saturating well. -Bilateral pleural effusions: Suspect volume overload from end-stage liver disease hemodialysis dependent will undergo hemodialysis today. -elevated troponin secondary to end-stage disease -Type 2 diabetes mellitus patient will be resumed on his home regimen of blood s ugars are well controlled with present regimen -Asthma without any acute exacerbation -Hyperlipidemia Hypertension -Diabetic nephropathy, diabetic retinopathy and neuropathy -Metabolic bone disease and hyperphosphatemia secondary to end-stage renal disease and patient will be continued on phosphate binders Patient Condition at Discharge: Fair Plan - Discharge Summary Discharge Rx Participant: No New Discharge Prescriptions: Continue DULoxetine HCL [Cymbalta] 120 mg PO HS Pravastatin Sodium [Pravachol] 40 mg PO HS Omeprazole [PriLOSEC] 40 mg PO HS ARIPiprazole [Abilify] 10 mg PO HS hydrALAZINE HCL [Apresoline] 100 mg PO TID #90 tab tiZANidine [Zanaflex] 2 mg PO Q8HR PRN PRN Reason: Muscle Spasm Thera M Plus 1 tab PO HS amLODIPine [Norvasc] 10 mg PO DAILY Carvedilol [Coreg] 6.25 mg PO BID Calcium Acetate [PhosLo] 667 mg PO AC-TID #90 cap Ondansetron Odt [Zofran ODT] 4 mg SL Q8HR PRN PRN Reason: Nausea And Vomiting Loratadine [Claritin] 10 mg PO DAILY HYDROcodone/APAP 5-325MG [[place] 5-325] 1 tab PO BID Insulin Aspart [NovoLOG] See Protocol SQ ACHS Dicyclomine [Bentyl] 20 mg PO Q6H PRN PRN Reason: STOMACH PAIN Insulin Degludec [Tresiba] 30 unit SQ DAILY Glucagon Emergency Kit 1 mg IM ONCE PRN PRN Reason: HYPOGLYCEMIA EVENT cloNIDine HCL [Catapres] 0.1 mg PO TID #90 tab Discharge Medication List DULoxetine HCL [Cymbalta] 120 mg PO HS 05/22/15 [History] Pravastatin Sodium [Pravachol] 40 mg PO HS 12/26/15 [History] ARIPiprazole [Abilify] 10 mg PO HS 09/07/16 [History] Omeprazole [PriLOSEC] 40 mg PO HS 09/07/16 [History] hydrALAZINE HCL [Apresoline] 100 mg PO TID #90 tab 07/04/17 [Rx] Thera M Plus 1 tab PO HS 08/05/18 [History] tiZANidine [Zanaflex] 2 mg PO Q8HR PRN 08/05/18 [History] Carvedilol [Coreg] 6.25 mg PO BID 11/14/18 [History] amLODIPine [Norvasc] 10 mg PO DAILY 11/14/18 [History] Calcium Acetate [PhosLo] 667 mg PO AC-TID #90 cap 11/15/18 [Rx] Dicyclomine [Bentyl] 20 mg PO Q6H PRN 02/28/19 [History] Glucagon Emergency Kit 1 mg IM ONCE PRN 02/28/19 [History] HYDROcodone/APAP 5-325MG [[place] 5-325] 1 tab PO BID 02/28/19 [History] Insulin Aspart [NovoLOG] See Protocol SQ ACHS 02/28/19 [History] Insulin Degludec [Tresiba] 30 unit SQ DAILY 02/28/19 [History] Loratadine [Claritin] 10 mg PO DAILY 02/28/19 [History] Ondansetron Odt [Zofran ODT] 4 mg SL Q8HR PRN 02/28/19 [History] cloNIDine HCL [Catapres] 0.1 mg PO TID #90 tab 03/07/19 [Rx] Follow up Appointment(s)/Referral(s): Janis Church NPC [Primary Care Provider] - 03/31/19 1:00 pm Chad Ramirez MD [STAFF PHYSICIAN] - 04/03/19 1:30 pm Patient Instructions/Handouts: Chronic Kidney Disease (DC), Pleural Effusion (DC), Diabetic Hyperglycemia (DC) Discharge Disposition: HOME SELF-CARE
--- NOTE | 2019-03-24 14:55 | P.PN ---
Subjective Progress Note Date: 03/24/19 Principal diagnosis: Dyspnea and pleural effusion This a 39-year-old white male patient of Dr. Trevino/, [facility], with history of end-stage renal disease on hemodialysis 3 times a week, diabetes mellitus type I with previous episodes of DKA, hypertension, hyperlipidemia, c hronic anemia, history of GI bleed secondary to peptic ulcer disease, peripheral vascular disease, diabetic foot ulcers and amputation of digits from his left foot, history of cardiac tamponade with pericardial window. Patient was recently hospitalized for loculated right pleural effusion, and interventional radiology placed ultrasound-guided right pleural pigtail catheter, patient received alteplase infusions, and there was serosanguineous drainage draining from the chest tube. However following the placement, and drainage of the pleural fluid the right lung did not reexpand, although the drainage subsided and pigtail catheter was discontinued. A total of 3 L of pleural drainage was drained over a period of a few days. Pleural fluid did not show cytologically malignant cells. Pleural fluid cultures showed no growth. Patient came into the hospital on 03/21/2019 with complaints of worsening shortness of breath, chest x-ray showed large right-sided hydropneumothorax measuring 40% similar in appearance to the prior exam. Today is his regular hemodialysis day. Patient was also found to have significantly elevated blood sugar. Does complain of exertional dyspnea, but no significant distress, no complaint of chest pain, no cough, no phlegm production, no fever or chills. Chest x-ray showed a bilateral pleural effusions with a loculated right pneumothorax which is unchanged from the previous chest x-ray. Patient was transferred from [facility] to [facility] where consulted for evaluation of his shortness of breath. The patient is seen today 03/22/2019 in follow-up on the regular medical floor. He is awake and alert in no acute distress. Breathing easier today as compared to yesterday. His chest x-ray is stable. Continues with a small to moderate sized lateral right basilar hydropneumothorax with adjacent right lower lobe atelectasis. He is maintaining O2 saturations in the mid 90s on 2 L/m per nasal cannula. He is afebrile. White count 6.6. Hemoglobin 10.9. He is due for hemodialysis today. Reevaluated today on 03/23/2019, patient is sitting in bed, asymptomatic, on 2 L nasal cannula, O2 saturations 96%. Patient continues to have a loculated right- sided pneumothorax, and I explained to him today that either he has to leave it alone and live with it as it is, or potentially consider a thoracic surgery opinion regarding potential decortication if he is felt to be a good candidate for such procedure. Patient is yet to hear from thoracic surgery regarding their recommendation. And at this point I believe the patient could be discharged home, and have follow-up on outpatient basis. Patient should also consider a second opinion regarding his loculated pneumothorax. And trapped lung. Placing a Pleurx catheter in the same place, will not help improve his lung. On 03/24/2017 patient seen in follow-up on medical surgical floor. He is resting in bed, in no acute distress, room air pulse ox is 92%, vital signs are stable, no couplets or worsening dyspnea, no signs of respiratory distress. Lung sounds are clear with diminished breath sounds at the right base. Follow- up chest x-ray today shows stable focal hydropneumothorax in the right lower lung, and slight worsening of the left basilar airspace disease with a possibly slight increase in left effusion, patient is awaiting his regular hemodialysis treatment today. CT surgery is following, and has given the patient and option of having a Pleurx catheter placed or a surgical option including thoracotomy, at any rate it is not urgent, and can be followed up on outpatient basis. Objective - Vital Signs Vital signs: Vital Signs Temp 97.7 F 03/24/19 11:33 Pulse 82 03/24/19 11:33 Resp 16 03/24/19 11:33 BP 157/99 03/24/19 11:33 Pulse Ox 92 L 03/24/19 13:25 Intake & Output 03/23/19 03/24/19 03/24/19 18:59 06:59 18:59 Intake Total 1150 Balance 1150 Weight 86 kg Intake: Oral 1150 Other: Voiding Method Toilet Toilet # Voids 1 1 - Exam GENERAL EXAM: Alert, pleasant, 39-year-old male, in no acute distress, HEAD: Normocephalic/atraumatic. EYES: Normal reaction of pupils, equal size. Conjunctiva pink, sclera white. NOSE: Clear with pink turbinates. THROAT: No erythema or exudates. NECK: No masses, no JVD, no thyroid enlargement, no adenopathy. CHEST: No chest wall deformity. Symmetrical expansion. LUNGS: Equal air entry with diminished breath sounds at bilateral bases, with basilar crackles, dullness to percussion on the right side CVS: Regular rate and rhythm, normal S1 and S2, no gallops, no murmurs, no rubs ABDOMEN: Soft, nontender. No hepatosplenomegaly, normal bowel sounds, no guarding or rigidity. EXTREMITIES: No clubbing, 2+ pitting edema, no cyanosis, 2+ pulses and upper and lower extremities. MUSCULOSKELETAL: Muscle strength and tone normal. SPINE: No scoliosis or deformity SKIN: No rashes CENTRAL NERVOUS SYSTEM: No focal deficits, tone is normal in all 4 extremities. PSYCHIATRIC: Alert and oriented -3. Appropriate affect. Intact judgment and insight. - Labs CBC & Chem 7: 03/22/19 07:19 03/24/19 09:31 Labs: Abnormal Lab Results - Last 24 Hours (Table) 03/23/19 03/23/19 03/23/19 Range/Units 22:46 23:02 23:20 Sodium (137-145) mmol/L Chloride (98-107) mmol/L BUN (9-20) mg/dL Creatinine (0.66-1.25) mg/dL Glucose (74-99) mg/dL POC Glucose (mg/dL) 49 L 54 L 125 H (75-99) mg/dL 03/24/19 03/24/19 03/24/19 Range/Units 06:55 09:31 11:31 Sodium 128 L (137-145) mmol/L Chloride 89 L (98-107) mmol/L BUN 46 H (9-20) mg/dL Creatinine 6.97 H (0.66-1.25) mg/dL Glucose 300 H (74-99) mg/dL POC Glucose (mg/dL) 217 H 247 H (75-99) mg/dL Assessment and Plan Plan: Assessment: #1. Acute hypoxic respiratory failure secondary to bilateral pleural effusions likely related to fluid volume overload. There is a loculated right-sided pleur al effusion, with previous history of pigtail catheter placement in February 2019 #2. Right-sided pneumothorax of 40%, unchanged from previous admission, with failure to reexpand, trapped lung, despite placement of a pigtail catheter placement, and drainage of the pleural effusion #3. Elevated troponins #4. Hypertension #5. Hyperlipidemia #6. History of type 1 diabetes mellitus with previous history of DKA, diabetic retinopathy and neuropathy #7. Peripheral vascular disease with history of diabetic ulcers and amputations of digits on the left foot #8. End-stage renal disease on hemodialysis #9. History of GI bleeding #10. GERD/reflux Plan: Patient is stable from pulmonary perspective, he is on room air, follow-up chest x-ray shows stable right-sided hydropneumothorax. No acute events overnight, worsening dyspnea, patient is maintaining good oxygenation on room air, will follow with the CT surgery on outpatient basis, no urgent need for placement of Pleurx catheter or surgical intervention at this time, and the patient was given the option of both, from pulmonary perspective he stable, stable for discharge home today after hemodialysis treatment. I performed a history & physical examination of the patient and discussed their management with my nurse practitioner, Lara Reddy. I reviewed the nurse practitioner's note and agree with the documented findings and plan of care. Lung sounds are positive for diminished breath sounds on the right. The findings and the impression was discussed with the patient. I attest to the documentation by the nurse practitioner. Time with Patient: Less than 30
[2019-03-24 19:12] VITALS: BP 165/94; PULSE 84; RESP 18; TEMP 98
[2019-03-25] MEDS ORDERED: INSULIN DETEMIR (LEVEMIR) 100 UNIT/ML SYR SQ SCH (07:00)
== END 2019-03-24 18:55 | disposition home or self-care (01) | DRG 189 ==
LOC: EC 08:58 → 4SSUR 11:14 → 3NMEDONC 13:52 → OBSVTOIN 03-22 11:38
PROVIDERS: ADMIT Internal Medicine; ATTEND Internal Medicine
PROC: 5A1D70Z Performance of Urinary Filtration, Intermittent, Less than 6 Hours Per Day (ICD-10-PCS; principal; 2019-03-24)
DX: J96.01 Acute respiratory failure with hypoxia (principal); N18.6 End stage renal disease; E87.1 Hypo-osmolality and hyponatremia; I12.0 Hypertensive chronic kidney disease with stage 5 chronic kidney disease or end stage renal disease; J81.1 Chronic pulmonary edema; J90 Pleural effusion, not elsewhere classified; J93.9 Pneumothorax, unspecified; J98.11 Atelectasis; D63.1 Anemia in chronic kidney disease; E10.22 Type 1 diabetes mellitus with diabetic chronic kidney disease; E10.319 Type 1 diabetes mellitus with unspecified diabetic retinopathy without macular edema; E10.40 Type 1 diabetes mellitus with diabetic neuropathy, unspecified; E10.51 Type 1 diabetes mellitus with diabetic peripheral angiopathy without gangrene; E10.65 Type 1 diabetes mellitus with hyperglycemia; E78.5 Hyperlipidemia, unspecified; E83.39 Other disorders of phosphorus metabolism; E87.70 Fluid overload, unspecified; E88.89 Other specified metabolic disorders; H54.7 Unspecified visual loss; J45.909 Unspecified asthma, uncomplicated; K21.9 Gastro-esophageal reflux disease without esophagitis; F17.220 Nicotine dependence, chewing tobacco, uncomplicated; Z79.4 Long term (current) use of insulin; Z79.899 Other long term (current) drug therapy; Z82.3 Family history of stroke; Z82.49 Family history of ischemic heart disease and other diseases of the circulatory system; Z83.3 Family history of diabetes mellitus; Z87.11 Personal history of peptic ulcer disease; Z98.2 Presence of cerebrospinal fluid drainage device; Z99.2 Dependence on renal dialysis; Z89.422 Acquired absence of other left toe(s); Z88.6 Allergy status to analgesic agent; Z88.5 Allergy status to narcotic agent; Z88.8 Allergy status to other drugs, medicaments and biological substances; Z87.01 Personal history of pneumonia (recurrent); Z86.14 Personal history of Methicillin resistant Staphylococcus aureus infection
CPT/HCPCS: 36415; 71046; 80048; 84100; 85027; 90935; 94760; 96374; 99285

== ENCOUNTER → 2019-04-29 | Outpatient (CLI) | payer MEDICARE, OTHER | LOC: LABWHC1 09:49 | PROVIDERS: ATTEND Thoracic Surgery (Cardiothoracic Vascular Surgery) | DX: Z01.812 Encounter for preprocedural laboratory examination (principal) | CPT/HCPCS: 36415; 86850; 86900; 86901; 86920 ==

== ENCOUNTER 2019-05-01 05:52 | Inpatient (IN) | payer MEDICARE, OTHER ==
[~2019-05-01 05:52] MED LIST: DEXAMETHASONE SOD PHOSPHATE 10 MG/ML 1 ML VIAL IV ONE; HYDROmorphone 0.5 MG/0.5 ML SYRINGE IVP PRN; LACTATED RINGERS 1,000 ML IV SCH; MIDAZOLAM 2 MG/2 ML VIAL IV PRN; ONDANSETRON 4 MG/2 ML VIAL IVP ONE; SCOPOLAMINE 1.5MG/72HR PATCH TRANSDERM ONE
[2019-05-01 06:47] LABS: Glucose,Whole Blood 107 mg/dL (75-99)
[2019-05-01] MEDS ORDERED: LIDOCAINE 1% 20 ML VIAL (10MG/ML) FOR IV START INTRADERMA ONE (06:49)
[2019-05-01 07:00] LABS: Anisocytosis Slight; Basophils # (A) 0.1 k/uL (0-0.2); Basophils % (A) 1 %; Eosinophils # (A) 0.4 k/uL (0-0.7); Eosinophils % (A) 5 %; HCT 26.6 % (39.0-53.0); Lymphocytes # (A) 1.4 k/uL (1.0-4.8); Lymphocytes % (A) 18 %; MCH 26.8 pg (25.0-35.0); MCHC 31.7 g/dL (31.0-37.0); MCV 84.6 fL (80.0-100.0); Mean Platelet Volume 7.5; Monocytes # (A) 0.5 k/uL (0-1.0); Monocytes % (A) 6 %; Neutrophils # (A) 5.3 k/uL (1.3-7.7); Neutrophils % (A) 69 %; Platelet Count 262 k/uL (150-450); RBC 3.14 m/uL (4.30-5.90); RDW 18.1 % (11.5-15.5); WBC 7.7 k/uL (3.8-10.6)
[2019-05-01 07:05] LABS: HGB 8.4 gm/dL (13.0-17.5)
[2019-05-01] MEDS ORDERED: ePHEDrine SULFATE/0.9% NACL/PF 50 MG/5 ML SYRINGE IV ONE (07:08)
[2019-05-01] MEDS ORDERED: MIDAZOLAM 2 MG/2 ML VIAL ONE (07:08)
[2019-05-01] MEDS ORDERED: ROCURONIUM BROMIDE 10 MG/ML 10 ML VIAL IV ONE (07:08)
[2019-05-01] MEDS ORDERED: fentaNYL (PF) 50 MCG/ML 2 ML AMP ONE (07:08)
[2019-05-01] MEDS ORDERED: LIDOCAINE 1% INJ 10MG/ML (20 ML MDV) ONE (07:08)
[2019-05-01] MEDS ORDERED: SUCCINYLCHOLINE CHLORIDE 100 MG/5 ML SYR IV ONE (07:08)
[2019-05-01] MEDS ORDERED: GLYCOPYRROLATE 0.2 MG/ML 2 ML VIAL ONE (07:08)
[2019-05-01] MEDS ORDERED: PROPOFOL 10 MG/ML 20 ML VIAL IV ONE (07:08)
[2019-05-01] MEDS ORDERED: PHENYLEPHRINE-0.9% NACL SYG 1 MG/10 ML SYRINGE ONE (07:08)
[2019-05-01] MEDS ORDERED: NEOSTIGMINE 1 MG/ML 10 ML VIAL ONE (07:08)
[2019-05-01 07:12] LABS: Calcium 9.1 mg/dL (8.4-10.2); Potassium 4.6 mmol/L (3.5-5.1)
[2019-05-01] MEDS ORDERED: NALOXONE 0.4 MG/ML 1 ML VIAL IV PRN ×2 (07:41→17:27)
[2019-05-01] MEDS ORDERED: ROPIVACAINE 400 MG, HYDROMORPHONE (PF) 5 MG in SODIUM CHLORIDE 0.9% 170 ML EPIDURAL PRN (07:41)
--- NOTE | 2019-05-01 10:19 | P.OP ---
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 Postoperative Diagnosis: Same Procedure(s) Performed: Right thoracotomy, total decortication right lung, cryoablation intercostal nerves Anesthesia: CLARISSA Surgeon: Chad Ramirez Web Designer #1: Jairo Velazquez Web Designer #2: Shayan Phillips Estimated Blood Loss (ml): 350 IV fluids (ml): 1,000 Urine output (ml): 5 Pathology: other (Right pleural fluid for cytology and culture, right pleural peel for pathology and culture) Condition: stable Disposition: PACU Indications for Procedure: 39-year-old male with chronic renal insufficiency has had multiple taps now for a right loculated effusion. The right lung is trapped. He has persistent shortness of breath. He has had recent hip replacement surgery and wished to wait for his lung surgery until he recovered from this. Presents at this time for elective decortication of the right lung. Operative Findings: There was a thick loculated collection in the right chest. Multiple cavities were present. There was thick pleural peel present which was trapping the lower lobe and middle lobe particularly.. It also involved the lower portion of the upper lobe. There were pleural adhesions throughout. Following decortication, good expansion of all 3 lobes was obtained. Description of Procedure: The patient was brought to the operating room, placed supine on the operating table, anesthetized and intubated. Double-lumen endotracheal tube was positioned with fiberoptic bronchoscopy. No endobronchial noted. Patient was turned in the left lateral decubitus position and the right chest sterilely prepped and draped. The lobe posterior lateral thoracotomy incision was performed carried down through skin and subcutaneous tissue. The latissimus muscle was divided. The serratus muscle was mobilized inferiorly. The chest was entered in the seventh interspace. The pleural space was entered and the intercostal muscles and pleura undercut anteriorly and posteriorly to allow rib spreading. Loculated effusion was broken up and fluid samples obtained. Adhesions within the chest cavity were carefully taken down freeing the entire lung. We then proceeded with decortication of lung. Pleural peel was removed entirely. This included removing peel down into the major and lesser fissure. Peel on the upper lobe was relatively thin. Peel on the middle lobe was then the anteriorly and thicker posteriorly. The peel on the lower lobe was thick throughout particularly posterior belly and inferiorly along the diaphragmatic surface. Once we had totally decorticated the lung using sharp electrocautery and blunt dissection, The lung was reinflated and noted to fill the chest cavity and were oblique. Some residual adhesions were taken down to allow maximal expansion of the lung. Once we were satisfied with this cryoablation of the intercostal nerves was performed at the C6 seventh eighth and ninth interspaces with the [employer] ice cryoablation system. 3 chest tubes were placed through separate stab incision. A 32-Faroese chest tube was positioned anteriorly into the apex. A 36-Faroese chest tube was positioned posteriorly in the gutter toward the apex. 36 right angle tube was positioned along the diaphragm. The ribs were reapproximated with #1 Vicryl. Muscle layers were closed with 0 Vicryl. Subcutaneous tissues were closed with 2-0 Vicryl. Skin was closed with a 3-0 Vicryl stitch. Dressings were applied to the incision and chest tube sites chest tubes were connected to Pleur-evac suction. Patient was awakened and transferred to recovery in good condition.
[2019-05-01] MEDS ORDERED: IPRATROPIUM-ALBUTEROL 3 ML NEB IH PRN (10:33)
[2019-05-01] MEDS ORDERED: BISACODYL 10 MG SUPP RECTAL PRN (10:33)
[2019-05-01] MEDS ORDERED: ONDANSETRON 4 MG/2 ML VIAL IVP PRN (10:33)
[2019-05-01 10:38] LABS: Glucose,Whole Blood 81 mg/dL (75-99)
--- NOTE | 2019-05-01 11:02 | XR ---
EXAMINATION TYPE: XR chest 1V DATE OF EXAM: 05/01/2019 COMPARISON: Prior chest 03/24/2019 HISTORY: Status post thoracotomy, decortication TECHNIQUE: Single frontal view of the chest is obtained. FINDINGS: There is been interval placement of 3 right-sided chest tubes. 1. Minimal residual pneumothorax is present. The heart is enlarged. Patchy basilar density also prese nt on the left, there is blunting of the left costophrenic angle. There are overlying cardiac leads. IMPRESSION: Satisfactory postoperative chest x-ray. Persistent left pleural effusion and associated atelectasis. Cardiomegaly.
[2019-05-01] MEDS: IPRATROPIUM-ALBUTEROL 3 ML NEB IH SCH ×3 (12:06→20:02)
[2019-05-01 12:27] LABS: Glucose,Whole Blood 119 mg/dL (75-99)
--- NOTE | 2019-05-01 12:38 | P.NPCON ---
History of Present Illness - Reason for Consult end stage renal disease - History of Present Illness Reason for consultation: End-stage renal disease History of present illness: Patient is a 39-year-old male seen in renal consultation for end-stage renal disease. He is maintained on hemodialysis on a Sunday schedule via right upper extremity AV fistula. Patient has required multiple t horacentesis for right loculated effusion. He underwent right-sided thoracotomy with total decortication of the right lung and cryoablation of intercostal nurse this morning. He is currently awake and alert. Denies chest pain or shortness of breath. Does admit to mild pain. Hemodynamically he stable. He is afebrile. Last hemodialysis was yesterday. No vomiting or diarrhea. No other complaints at this time. Vital signs are stable. General: The patient appeared well nourished and normally developed. HEENT: Head exam is unremarkable. Neck is without jugular venous distension. LUNGS: Breath sounds decreased. Chest tube noted. HEART: Rate and Rhythm are regular. First and second heart sounds normal. No murmurs, rubs or gallops. ABDOMEN: Abdominal exam reveals normal bowel sounds. Non-tender and non- distended. No evidence of peritonitis. EXTREMITITES: No clubbing, cyanosis, or edema. Past Medical History Past Medical History: Asthma, Diabetes Mellitus, Dialysis, Eye Disorder, GERD/Reflux, GI Bleed, Hyperlipidemia, Hypertension, Pneumonia, Renal Disease, Vascular Disorder Additional Past Medical History / Comment(s): bilateral pleural effusions with R side worse-had R pleural pigtail cath/alteplase pleural instillation. Other hx: IDDM type I, diabetic since he was age 21, DKA, ESRD with hemodialysis on //, A/V shunt right lower arm, volume overload, chronic anemia, hiatal hernia, previous history of GI bleed secondary to peptic ulcer disease, bilateral pleural effusions/thoracentesis, cardiac tamponade with surgery, peripheral vascular disease, osteomyelitis L foot in 2012, diabetic foot ulcers and amputations, R eye retinal detachment/surgery, L eye cataract History of Any Multi-Drug Resistant Organisms: MRSA Date of last positivie culture/infection: 12/20/11 MDRO Source:: Left Foot Past Surgical History: Ventriculoperitoneal Shunt Additional Past Surgical History / Comment(s): A/V fistula R lower arm, ventriculo peritoneal shunt, renal needle bx, 2008 left great toe amp and 2013 2nd to 5th left foot toes amputated, L foot I&D, right chest mediport x2 with removal in 2010 and 2012. right eye retina reattachment sx 03/2015. EGD/colonoscopy, pericardial window for cardiac tampanode, pleural pigtail insertion/alteplase pleural instillation. Past Anesthesia/Blood Transfusion Reactions: No Reported Reaction Smoking Status: Never smoker - Past Family History Mother Family Medical History: Hypertension Father Family Medical History: CVA/TIA, Diabetes Mellitus, Hypertension Additional Family Medical History / Comment(s): Father is at the age of 53yrs from a CVA. Medications and Allergies Home Medications Medication Instructions Recorded Confirmed Type Pravastatin Sodium [Pravachol] 40 mg PO HS 12/26/15 05/01/19 History ARIPiprazole [Abilify] 10 mg PO HS 09/07/16 05/01/19 History Omeprazole [PriLOSEC] 40 mg PO HS 09/07/16 05/01/19 History hydrALAZINE HCL [Apresoline] 100 mg PO TID #90 tab 07/04/17 05/01/19 Rx Thera M Plus 1 tab PO HS 08/05/18 05/01/19 History tiZANidine [Zanaflex] 2 mg PO Q8HR PRN 08/05/18 05/01/19 History Carvedilol [Coreg] 6.25 mg PO BID 11/14/18 05/01/19 History amLODIPine [Norvasc] 10 mg PO HS 11/14/18 05/01/19 History Calcium Acetate [PhosLo] 667 mg PO AC-TID #90 cap 11/15/18 05/01/19 Rx Dicyclomine [Bentyl] 20 mg PO Q6H PRN 02/28/19 05/01/19 History Glucagon Emergency Kit 1 mg IM ONCE PRN 02/28/19 05/01/19 History Insulin Aspart [NovoLOG] See Protocol SQ ACHS 02/28/19 05/01/19 History Insulin Degludec [Tresiba] 30 unit SQ HS 02/28/19 05/01/19 History Ondansetron Odt [Zofran ODT] 4 mg PO Q8HR PRN 02/28/19 05/01/19 History cloNIDine HCL [Catapres] 0.1 mg PO TID #90 tab 03/07/19 05/01/19 Rx Desvenlafaxine Succinate [Pristiq] 100 mg PO HS 04/23/19 05/01/19 History Hydrocodone/Acetaminophen [[place] 1 tab PO BID 04/23/19 05/01/19 History 7.5-325] Allergies Allergy/AdvReac Type Severity Reaction Status Date / Time lisinopril Allergy Unknown Verified 05/01/19 11:05 atorvastatin calcium AdvReac Nausea & Verified 05/01/19 11:05 [From Lipitor] Vomiting/muscle weakness losartan potassium AdvReac Nausea & Verified 05/01/19 11:05 [From Cozaar] Vomiting/hypotension tramadol AdvReac drowsiness Verified 05/01/19 11:05 Physical Exam Vitals: Vital Signs Temp Pulse Pulse Pulse Resp BP BP 05/01/19 12:20 76 05/01/19 12:13 74 18 110/57 05/01/19 12:10 72 05/01/19 11:42 72 16 122/70 05/01/19 11:26 73 16 122/74 05/01/19 11:11 74 16 123/73 05/01/19 10:56 73 16 127/77 05/01/19 10:41 74 16 148/92 05/01/19 10:36 97.0 F L 72 18 138/85 05/01/19 06:33 97.4 F L 80 16 154/88 Pulse Ox 05/01/19 12:20 05/01/19 12:13 96 05/01/19 12:10 95 05/01/19 11:42 96 05/01/19 11:26 96 05/01/19 11:11 97 05/01/19 10:56 97 05/01/19 10:41 100 05/01/19 10:36 100 05/01/19 06:33 94 L Intake and Output 04/30/19 05/01/19 05/01/19 22:59 06:59 14:59 Intake Total 100 670.2 Output Total 615 Balance 100 55.2 Intake: IV 100 670.2 Output: Urine 0 Estimated Blood Loss 615 Results - Lab Results Most recent lab results Calcium 9.1 mg/dL (8.4-10.2) 05/01/19 06:43 05/01/19 06:43 05/01/19 06:43 Assessment and Plan Plan: Assessment: 1. End-stage renal disease maintained on hemodialysis on a Sunday schedule via right upper extremity AV fistula. 2. Chronic right-sided loculated effusion status post thoracotomy and decortication of the right lung this morning. 3. Hypertension with chronic kidney disease. Controlled. 4. Anemia of chronic kidney disease. 5. Chronic kidney disease mineral bone disease maintained on PhosLo. 6. Insulin-dependent diabetes mellitus. Plan: Hemodialysis tomorrow. Resume PhosLo with meals. Add Aranesp. Check iron studies. Thank you for the consultation. I will continue to follow the patient with you during his hospital stay.
[2019-05-01] MEDS ORDERED: DARBEPOETIN ALFA 40 MCG/0.4 ML SYRINGE SQ SCH (12:45)
[2019-05-01] MEDS: ACETAMINOPHEN IV (For NPO) 1,000 MG in EMPTY BAG 1 BAG IVPB SCH ×2 (12:51→21:01)
--- NOTE | 2019-05-01 13:16 | P.CNPUL ---
History of Present Illness Consult date: 05/01/19 Requesting physician: Chad Ramirez Reason for consult: abnormal CXR/CT Chief complaint: Right lung collapse History of present illness: This a 39-year-old white male patient of Dr. Trevino/Ranjit, [facility], with history of end-stage renal disease on hemodialysis 3 times a week, diabetes mellitus type I with previous episodes of DKA, hypertension, hyperlipidemia, chronic anemia, history of GI bleed secondary to peptic ulcer disease, peripheral vascular disease, diabetic foot ulcers and amputation of digits from his left foot, history of cardiac tamponade with pericardial window. Patient was recently hospitalized for loculated right pleural effusion, and interventional radiology placed ultrasound-guided right pleural pigtail catheter, patient received alteplase infusions, and there was serosanguineous drainage draining from the chest tube. However following the placement, and drainage of the pleural fluid the right lung did not reexpand, although the drainage subsided and pigtail catheter was discontinued. He was subsequently discharged and seen by Dr. Ramirez in the outpatient setting. He brought him in today electively for a right thoracotomy, total decortication of the right lung and cryoablation intercostal nerves. Pleural fluids sent for cytology and culture, right pleural peel for pathology and culture. He also placed 3 separate chest tubes. Air leak present mainly from #1. He is seen today in consultation on the selective care unit. He is currently awake and alert in no acute distress. He does have an epidural catheter in place for pain control. He is maintaining O2 saturations in the 90s on 3 L/m per nasal cannula. He is currently hemodynamically stable. Review of Systems REVIEW OF SYSTEMS: CONSTITUTIONAL: Denies any recent significant weight loss or weight gain. EYES: Denies change in vision. EARS, NOSE, MOUTH, THROAT: Denies headaches, denies sore throat. CARDIOVASCULAR: Denies chest pain, palpitations or syncopal episodes. RESPIRATORY: Positive for shortness of breath, cough, congestion no hemoptysis. GASTROINTESTINAL: Denies change in appetite, denies abdominal pain GENITOURINARY: Denies hematuria, denies infections. MUSKULOSKELETAL: Denies pain, denies swelling. INTEGUMENTARY: Denies rash, denies eczema. NEUROLOGICAL: Denies recent memory loss, no recent seizure activity. PSYCHIATRIC: Denies anxiety, denies depression. HEMATOLOGIC/LYMPHATIC: Denies anemia, denies enlarged lymph nodes. Past Medical History Past Medical History: Asthma, Diabetes Mellitus, Dialysis, Eye Disorder, GERD/Reflux, GI Bleed, Hyperlipidemia, Hypertension, Pneumonia, Renal Disease, Vascular Disorder Additional Past Medical History / Comment(s): bilateral pleural effusions with R side worse-had R pleural pigtail cath/alteplase pleural instillation. Other hx: IDDM type I, diabetic since he was age 21, DKA, ESRD with hemodialysis on M/W/, A/V shunt right lower arm, volume overload, chronic anemia, hiatal hernia, previous history of GI bleed secondary to peptic ulcer disease, bilateral pleural effusions/thoracentesis, cardiac tamponade with surgery, per ipheral vascular disease, osteomyelitis L foot in 2012, diabetic foot ulcers and amputations, R eye retinal detachment/surgery, L eye cataract History of Any Multi-Drug Resistant Organisms: MRSA Date of last positivie culture/infection: 12/20/11 MDRO Source:: Left Foot Past Surgical History: Ventriculoperitoneal Shunt Additional Past Surgical History / Comment(s): A/V fistula R lower arm, ventriculo peritoneal shunt, renal needle bx, 2008 left great toe amp and 2013 2nd to 5th left foot toes amputated, L foot I&D, right chest mediport x2 with removal in 2010 and 2012. right eye retina reattachment sx 03/2015. EGD/colonoscopy, pericardial window for cardiac tampanode, pleural pigtail insertion/alteplase pleural instillation. Past Anesthesia/Blood Transfusion Reactions: No Reported Reaction Smoking Status: Never smoker - Past Family History Mother Family Medical History: Hypertension Father Family Medical History: CVA/TIA, Diabetes Mellitus, Hypertension Additional Family Medical History / Comment(s): Father is at the age of 53yrs from a CVA. Medications and Allergies Home Medications Medication Instructions Recorded Confirmed Type Pravastatin Sodium [Pravachol] 40 mg PO HS 12/26/15 05/01/19 History ARIPiprazole [Abilify] 10 mg PO HS 09/07/16 05/01/19 History Omeprazole [PriLOSEC] 40 mg PO HS 09/07/16 05/01/19 History hydrALAZINE HCL [Apresoline] 100 mg PO TID #90 tab 07/04/17 05/01/19 Rx Thera M Plus 1 tab PO HS 08/05/18 05/01/19 History tiZANidine [Zanaflex] 2 mg PO Q8HR PRN 08/05/18 05/01/19 History Carvedilol [Coreg] 6.25 mg PO BID 11/14/18 05/01/19 History amLODIPine [Norvasc] 10 mg PO HS 11/14/18 05/01/19 History Calcium Acetate [PhosLo] 667 mg PO AC-TID #90 cap 11/15/18 05/01/19 Rx Dicyclomine [Bentyl] 20 mg PO Q6H PRN 02/28/19 05/01/19 History Glucagon Emergency Kit 1 mg IM ONCE PRN 02/28/19 05/01/19 History Insulin Aspart [NovoLOG] See Protocol SQ ACHS 02/28/19 05/01/19 History Insulin Degludec [Tresiba] 30 unit SQ HS 02/28/19 05/01/19 History Ondansetron Odt [Zofran ODT] 4 mg PO Q8HR PRN 02/28/19 05/01/19 History cloNIDine HCL [Catapres] 0.1 mg PO TID #90 tab 03/07/19 05/01/19 Rx Desvenlafaxine Succinate [Pristiq] 100 mg PO HS 04/23/19 05/01/19 History Hydrocodone/Acetaminophen [[place] 1 tab PO BID 04/23/19 05/01/19 History 7.5-325] Allergies Allergy/AdvReac Type Severity Reaction Status Date / Time lisinopril Allergy Unknown Verified 05/01/19 11:05 atorvastatin calcium AdvReac Nausea & Verified 05/01/19 11:05 [From Lipitor] Vomiting/muscle weakness losartan potassium AdvReac Nausea & Verified 05/01/19 11:05 [From Cozaar] Vomiting/hypotension tramadol AdvReac drowsiness Verified 05/01/19 11:05 Physical Exam Vitals: Vital Signs Temp Pulse Pulse Pulse Resp BP BP 05/01/19 12:35 18 05/01/19 12:20 76 05/01/19 12:13 74 18 110/57 05/01/19 12:10 72 05/01/19 11:42 72 16 122/70 05/01/19 11:26 73 16 122/74 05/01/19 11:11 74 16 123/73 05/01/19 10:56 73 16 127/77 05/01/19 10:41 74 16 148/92 05/01/19 10:36 97.0 F L 72 18 138/85 05/01/19 06:33 97.4 F L 80 16 154/88 Pulse Ox 05/01/19 12:35 05/01/19 12:20 05/01/19 12:13 96 05/01/19 12:10 95 05/01/19 11:42 96 05/01/19 11:26 96 05/01/19 11:11 97 05/01/19 10:56 97 05/01/19 10:41 100 05/01/19 10:36 100 05/01/19 06:33 94 L Intake and Output 04/30/19 05/01/19 05/01/19 22:59 06:59 14:59 Intake Total 100 670.2 Output Total 615 Balance 100 55.2 Intake: IV 100 670.2 Output: Urine 0 Estimated Blood Loss 615 GENERAL EXAM: Alert, doesn't 39-year-old gentleman, fairly comfortable in no apparent distress. 3 L nasal cannula. HEAD: Normocephalic. EYES: Normal reaction of pupils, equal size. NOSE: Clear with pink turbinates. THROAT: No erythema or exudates. NECK: No masses, no JVD. CHEST: 3 chest tubes inserted and the right chest. Attached to Pleur-evac. Positive air leak specially #1. LUNGS: Equal air entry few scattered rhonchi, crackles in the right lung base, diminished CVS: S1 and S2 normal with no audible murmur, regular rhythm. ABDOMEN: No hepatosplenomegaly, normal bowel sounds, no guarding or rigidity. SPINE: No scoliosis or deformity SKIN: No rashes CENTRAL NERVOUS SYSTEM: No focal deficits, tone is normal in all 4 extremities. EXTREMITIES: There is no peripheral edema. No clubbing, no cyanosis. Peripheral pulses are intact. Results - Laboratory Findings CBC and BMP: 05/01/19 06:43 05/01/19 06:43 Abnormal lab findings: Abnormal Labs 04/29/19 05/01/19 05/01/19 10:39 06:43 06:43 RBC 3.14 L Hgb 8.4 L D Hct 26.6 L RDW 18.1 H Sodium 136 L Chloride 94 L BUN 45 H Creatinine 3.66 H Glucose 107 H POC Glucose (mg/dL) Crossmatch See Detail 05/01/19 05/01/19 06:46 12:05 RBC Hgb Hct RDW Sodium Chloride BUN Creatinine Glucose POC Glucose (mg/dL) 107 H 119 H Crossmatch - Diagnostic Findings Chest x-ray: image reviewed Assessment and Plan Assessment: Impression: #1 Chronic right-sided pleural effusion with trapped lung, status post right thoracotomy, total decortication of the right lung, cryoablation intercostal nurse. Fluid for cytology and cultures pending, right pleural peel for pathology and culture pending. [address]. #2 Previous admission for right pleural effusion, loculated, status post thoracentesis and pigtail placement without significant improvement. #3 Acute hypoxic respiratory failure secondary to above. #4 Hypertension #5 Hyperlipidemia #6 History of type 1 diabetes mellitus with previous history of DKA, diabetic retinopathy and neuropathy #7 Peripheral vascular disease with history of diabetic ulcers and amputations of digits on the left foot #8 End-stage renal disease on hemodialysis #9 History of GI bleeding #10 GERD/reflux Plan: The patient was seen and evaluated by Dr. Tarango. Chest x-ray, labs reviewed. Chest tubes in place. Positive air leak. He is encouraged regarding the use of the incentive spirometer and cough and deep breathing exercises. Adequate pain control. Increase his activity as tolerated. We'll continue to follow make further recommendations based on his clinical status. I, the cosigning physician, performed a history & physical examination of the patient. Lungs sounds scattered rhonchi, crackles in the right base. Maintaining good O2 saturations in the 90s on 3 L/m per nasal cannula. I discussed the assessment and plan of care with my nurse practitioner, Alisha Hodges. I attest to the above consultation as dictated by her. Time with Patient: Greater than 30
[2019-05-01 14:24] LABS: Glucose,Whole Blood 148 mg/dL (75-99)
[2019-05-01] MEDS ORDERED: SODIUM CHLORIDE 0.9% 1,000 ML IV SCH (15:15)
[2019-05-01 15:24] LABS: Glucose,Whole Blood 172 mg/dL (75-99)
[2019-05-01] MEDS: cloNIDine HCL 0.1 MG TAB PO SCH ×2 (16:40→22:09)
[2019-05-01] MEDS: hydrALAZINE HCL 50 MG TAB PO SCH ×2 (16:40→22:09)
[2019-05-01] MEDS: CALCIUM ACETATE 667 MG CAP PO SCH (16:46)
[2019-05-01] MEDS: CARVEDILOL 6.25 MG TAB PO SCH (16:46)
[2019-05-01] MEDS: HEPARIN SODIUM,PORCINE 5,000 UNIT/ML 1 ML VIAL SQ SCH ×2 (16:47→23:20)
[2019-05-01] MEDS ORDERED: CALCIUM ACETATE 667 MG CAP PO SCH (17:30)
[2019-05-01 17:32] LABS: Glucose,Whole Blood 164 mg/dL (75-99)
[2019-05-01] MEDS: INSULIN ASPART (NovoLOG) 100 UNIT/ML VIAL SQ SCH ×2 (17:47→21:02)
[2019-05-01] MEDS: ROPIVACAINE EPIDURAL PRN (18:09)
[2019-05-01] MEDS: HYDROMORPHONE EPIDURAL PRN (18:09)
[2019-05-01] MEDS: SODIUM CHLORIDE 0.9% EPIDURAL PRN (18:09)
[2019-05-01 18:54] LABS: Iron Saturation 13.88 (15.00-50.00)
[2019-05-01] MEDS: PRAVASTATIN SODIUM 40 MG TAB PO SCH (20:29)
[2019-05-01] MEDS: ARIPiprazole 10 MG TAB PO SCH (20:29)
[2019-05-01] MEDS: amLODIPine 10 MG TAB PO SCH (20:29)
[2019-05-01] MEDS: PANTOPRAZOLE 40 MG TABLET PO SCH (20:29)
[2019-05-01 20:42] LABS: Glucose,Whole Blood 205 mg/dL (75-99)
[2019-05-01] MEDS ORDERED: INSULIN DETEMIR (LEVEMIR) 100 UNIT/ML SYR SQ SCH (21:00)
[2019-05-01] MEDS: diphenhydrAMINE 50 MG/ML 1 ML VIAL IVP PRN (23:12)
[2019-05-02] MEDS ORDERED: DICYCLOMINE 20 MG TAB PO PRN (00:12)
[2019-05-02 06:03] LABS: Glucose,Whole Blood 192 mg/dL (75-99)
[2019-05-02 06:04] LABS: Anisocytosis Slight; Basophils % (A) 0 %; Eosinophils # (A) 0.2 k/uL (0-0.7); Eosinophils % (A) 1 %; HGB 7.6 gm/dL (13.0-17.5); Hypochromasia Slight; Lymphocytes # (A) 1.1 k/uL (1.0-4.8); Lymphocytes % (A) 9 %; MCH 26.8 pg (25.0-35.0); MCHC 30.5 g/dL (31.0-37.0); MCV 87.7 fL (80.0-100.0); Mean Platelet Volume 7.8; Monocytes # (A) 0.7 k/uL (0-1.0); Monocytes % (A) 6 %; Neutrophils % (A) 82 %; Platelet Count 275 k/uL (150-450); RBC 2.85 m/uL (4.30-5.90); RDW 18.5 % (11.5-15.5); WBC 12.2 k/uL (3.8-10.6)
[2019-05-02 06:26] LABS: Calcium 8.5 mg/dL (8.4-10.2); Potassium 5.4 mmol/L (3.5-5.1)
[2019-05-02] MEDS: INSULIN ASPART (NovoLOG) 100 UNIT/ML VIAL SQ SCH ×4 (06:26→21:32)
[2019-05-02] MEDS: CALCIUM ACETATE 667 MG CAP PO SCH ×3 (06:26→17:26)
[2019-05-02] MEDS: IPRATROPIUM-ALBUTEROL 3 ML NEB IH SCH ×4 (07:54→19:35)
--- NOTE | 2019-05-02 07:55 | XR ---
EXAMINATION TYPE: XR chest 1V DATE OF EXAM: 05/02/2019 COMPARISON: Prior chest x-ray 05/01/2019 HISTORY: Postop right thoracotomy with decortication TECHNIQUE: Single frontal view of the chest is obtained. FINDINGS: 3 right-sided chest tubes are in place, there are overlying cardiac leads. Minimal trapped lung, pneumothorax present at the right costophrenic angle. There is some subcutaneous emphysema pre sent. Heart is enlarged. Persistent abnormal density at the left lung base, blunting of the left cost ophrenic angle again noted. IMPRESSION: Findings are essentially stable. Postop changes. Left pleural effusion and associated at electasis. Cardiomegaly. Probable trapped lung.
[2019-05-02] MEDS: CARVEDILOL 6.25 MG TAB PO SCH ×2 (08:15→17:26)
[2019-05-02] MEDS: diphenhydrAMINE 50 MG/ML 1 ML VIAL IVP PRN (08:16)
[2019-05-02] MEDS: hydrALAZINE HCL 50 MG TAB PO SCH ×3 (08:16→21:31)
[2019-05-02] MEDS: cloNIDine HCL 0.1 MG TAB PO SCH ×3 (08:16→21:32)
[2019-05-02] MEDS: HEPARIN SODIUM,PORCINE 5,000 UNIT/ML 1 ML VIAL SQ SCH ×3 (08:17→23:10)
[2019-05-02] MEDS: ACETAMINOPHEN TAB 500 MG TAB PO PRN ×2 (08:30→17:26)
--- NOTE | 2019-05-02 10:40 | P.PN ---
Progress Note - Text Anesthesia POD 1, 0 6:30. Status Post right pulmonary decortication under general endotracheal anesthesia with an epidrual catheter placed at T8 for post surgical pain releif. VAS (4, 6) with Ropivicaine 0.16 % and Dilaudid 5 mcg / cc running at 9 cc / hr. Lower extremity strength (4/4). Mild sedation. Site looks OK. Last evening patient was found to be quite somnolent and bradypneic. Since he is a renal failure patient on dialysis the epidural was paused and new infusate orders were written. The new infusate orders were ropivacaine 0.16 percent with Dilaudid 5 mcg/mL instead of the usual 20 mcg/mL. The epidural infusion rate was gradually increased overnight and now sits at 9 mL/h. The patient is quite tall (6 feet 2 inches) and for this reason I have asked the nurses to administer a 10 mL bolus of infusate through the epidural catheter and to increase the infusion rate range to 2cc to 12cc per hour.
--- NOTE | 2019-05-02 11:18 | CONS ---
CONSULTATION DATE OF SERVICE: 05/01/2019 REASON FOR CONSULTATION: Advice regarding diabetes mellitus, hypertension and hyperlipidemia requested by Dr. Ramirez. HISTORY OF PRESENT ILLNESS: This 39-year-old gentleman with a past medical history of asthma, diabetes mellitus, history of GERD, hypertension, hyperlipidemia, history pneumonia being followed by Dr. Trevino in the outpatient setting previously had right pleural effusion which was found to be loculated. Patient had and pigtail catheter, but because of lack of improvement the patient underwent right thoracotomy, total decortication of the right lung and cryoablation intercostal nerves by Dr. Ramirez. Postoperatively, the patient had episode of hypoxia, but with oxygen patient improved significantly. Patient is on epidural anesthesia as well. There is no history of any fever, rigors. No history of headache, loss of consciousness or seizures at this time. PAST MEDICAL HISTORY: History of asthma, diabetes, hemodialysis, history of chronic renal failure, GI bleed, hypertension, hyperlipidemia, history of pneumonia, history of vascular disorder. MEDICATIONS: Medications prior to admission home medications are: 1. Zanaflex 2 mg p.o. q.8 p.r.n. 2. Apresoline 100 mg p.o. t.i.d. 3. Catapres 0.1 p.o. t.i.d. 4. Norvasc 10 mg p.o. q.h.s. 5. Multivitamins 1 p.o. daily. 6. Pravachol 40 mg q.h.s. 7. Zofran 4 mg q.8 p.r.n. 8. Prilosec 40 mg p.o. q.h.s. 9. Tresiba 30 units subcu q.h.s. 10.NovoLog a.c. and at bedtime. 11.[place] 7.5 p.o. b.i.d. 12.Glucagon p.r.n. 13.Bentyl 20 mg q.6 p.r.n. 14.Pristiq 100 mg p.o. q.h.s. 15.Coreg 6.25 mg p.o. b.i.d. 16.PhosLo 667 p.o. t.i.d. 17.Abilify 10 mg p.o. q.h.s. ALLERGIES: Allergies are LISINOPRIL, LIPITOR, COZAAR, ULTRAM. FAMILY HISTORY: History of hypertension, history of CVA. SOCIAL HISTORY: No history of smoking. No history of alcohol intake. REVIEW OF SYSTEMS: ENT: No diminished hearing or diminished vision. CARDIOVASCULAR SYSTEM: No angina. RESPIRATORY SYSTEM: No cough or hemoptysis, otherwise mentioned earlier. GI: No nausea, vomiting. : As mentioned earlier. NERVOUS SYSTEM: No numbness or weakness. ALLERGY/IMMUNOLOGY: No asthma or hayfever. MUSCULOSKELETAL: As mentioned earlier. HEMATOLOGY/ONCOLOGY: No history of anemia. ENDOCRINE: Diabetes mellitus. CONSTITUTIONAL: As mentioned earlier. DERMATOLOGY: Negative. RHEUMATOLOGY: Negative. PSYCHIATRIC: As mentioned earlier. PHYSICAL EXAMINATION: The patient is alert and oriented x3. Pulse is 95, blood pressure 127/75, respiration 14, temperature is normal, pulse ox 95% on 2 L. HEENT: Conjunctivae normal. Oral mucosa moist. NECK is no jugular venous distention. No thyroid enlargement. No carotid bruit. CARDIOVASCULAR: S1, S2 muffled. No S3, no S4. RESPIRATORY: Breath sounds diminished at the bases. No rhonchi, no crackles. Chest tube is present. ABDOMEN: Soft, nontender. No mass palpable. LEGS: No edema, no swelling. NERVOUS SYSTEM: Higher function as mentioned earlier. Moves all 4 limbs. No focal motor or sensory deficits. LYMPHATICS: No lymphadenopathy of the neck, axillae or groin. SKIN: No ulcer, rash or bleeding. JOINTS: No active deforming arthropathy. LABS: Labs are at this time: Glucose 172, 164, 205. WBC 7.7, hemoglobin is 8.4. Sodium 136. Creatinine 3.66. ASSESSMENT: 1. Status post right thoracotomy and as well as total decortication of the right lung for right chronic loculated pleural effusion with trapped lung. 2. Chronic renal failure on hemodialysis. 3. Diabetes mellitus type 2. 4. Hyponatremia. 5. Anemia, normocytic anemia of chronic disease. 6. History of asthma, chronic intermittent. 7. Gastroesophageal reflux disease. 8. History of gastrointestinal bleed. 9. Hypertension. 10.Hyperlipidemia. 11.History of pneumonia. 12.History of loculated pleural effusion and pigtail catheter. 13.History of hiatal hernia. 14.History of peptic ulcer disease. 15.History of cardiac tamponade with surgery. 16.History of osteomyelitis left foot. 17.History of methicillin-resistant Staphylococcus aureus. 18.History of ventriculoperitoneal shunt. 19.History of depression. RECOMMENDATIONS AND DISCUSSION: This 39-year-old gentleman who presented with multiple complex medical issues, at this time I recommend to continue current medications, continue symptomatic treatment. Otherwise, at this time I recommend resume the home medications. Monitor blood sugars closely. Continue the hemodialysis. We will follow the patient closely with you. Thank you Dr. Ramirez for letting us participate in the care of this patient. GUERDA / MISAELN: [id number] / [id number]
--- NOTE | 2019-05-02 11:42 | P.PN ---
Subjective Progress Note Date: 05/02/19 Principal diagnosis: Chronic right-sided pleural effusion with trapped lung. This a 39-year-old white male patient of Dr. Trevino/Ranjit, [facility], with history of end-stage renal disease on hemodialysis 3 times a week, diabetes mellitus type I with previous episodes of DKA, hypertension, hyperlipidemia, chronic anemia, history of GI bleed secondary to peptic ulcer disease, peripheral vascular disease, diabetic foot ulcers and amputation of digits from his left foot, history of cardiac tamponade with pericardial window. Patient was recently hospitalized for loculated right pleural effusion, and interventional radiology placed ultrasound-guided right pleural pigtail catheter, patient received alteplase infusions, and there was serosanguineous drainage draining from the chest tube. However following the placement, and drainage of the pleural fluid the right lung did not reexpand, although the drainage subsided and pigtail catheter was discontinued. He was subsequently discharged and seen by Dr. Ramirez in the outpatient setting. He brought him in today electively for a right thoracotomy, total decortication of the right lung and cryoablation intercostal nerves. Pleural fluids sent for cytology and culture, right pleural peel for pathology and culture. He also placed 3 separate chest tubes. Air leak present mainly from #1. He is seen today in consultation on the selective care unit. He is currently awake and alert in no acute distress. He does have an epidural catheter in place for pain control. He is maintaining O2 saturations in the 90s on 3 L/m per nasal cannula. He is currently hemodynamically stable. The patient is seen today 05/02/2019 in follow-up on the selective care unit. He is currently sitting up in a chair at the bedside. Awake and alert in no acute distress. He's pain is fairly well controlled. He is being followed by Dr. Rahman from anesthesia. Epidural catheter remains in place. 3 chest tubes remain in place. Still a leak from chest tube 1 and 2. All to continuous wall suction. Chest x-ray shows stable findings with postop changes. Left pleural effusion and associated atelectasis. Cardiomegaly. He is working well with the incentive spirometer. Currently 0.750-1000 ML's. Pleural fluid cultures pending. White count 12.2. Hemoglobin 7.6. Creatinine 4.60. Sodium 132. Potassium 5.4. Bicarb 25. He is continued on DuoNeb inhalations, heparin for DVT prophylaxis. Objective - Vital Signs Vital signs: Vital Signs Temp 99 F 05/02/19 08:00 Pulse 96 05/02/19 08:07 Resp 17 05/02/19 08:00 BP 160/92 05/02/19 08:00 Pulse Ox 97 05/02/19 08:00 Intake & Output 05/01/19 05/02/19 05/02/19 18:59 06:59 18:59 Intake Total 910.2 760.85 280.667 Output Total 1060 345 Balance -149.8 415.85 280.667 Weight 49.215 kg Intake: IV 670.2 Intake, IV Titration 60.85 40.667 Amount Ropivacaine 400 mg 60.85 40.667 Hydromorphone (Pf) 1.25 mg In Sodium Chloride 0.9 % 170 ml @ Per Protocol EPIDURAL .Q0M PRN Rx#: [id number] Oral 240 700 240 Output: Chest Tube Drainage 445 345 Chest Tube Right 380 300 Chest Tube Right Lateral 10 5 Chest Chest Tube Right Upper 55 40 Urine 0 0 Estimated Blood Loss 615 - Exam GENERAL EXAM: Alert, pleasant 39-year-old gentleman, fairly comfortable in no apparent distress. 2 L nasal cannula. HEAD: Normocephalic. EYES: Normal reaction of pupils, equal size. NOSE: Clear with pink turbinates. THROAT: No erythema or exudates. NECK: No masses, no JVD. CHEST: 3 chest tubes inserted and the right chest. Attached to Pleur-evac. Positive air leak in CT #1 and #2. LUNGS: Equal air entry few scattered rhonchi, crackles in the right lung base, diminished CVS: S1 and S2 normal with no audible murmur, regular rhythm. ABDOMEN: No hepatosplenomegaly, normal bowel sounds, no guarding or rigidity. SPINE: No scoliosis or deformity SKIN: No rashes CENTRAL NERVOUS SYSTEM: No focal deficits, tone is normal in all 4 extremities. EXTREMITIES: There is no peripheral edema. No clubbing, no cyanosis. Peripheral pulses are intact. - Labs CBC & Chem 7: 05/02/19 05:50 05/02/19 05:50 Labs: Abnormal Lab Results - Last 24 Hours (Table) 05/01/19 05/01/19 05/01/19 Range/Units 06:43 12:05 14:04 WBC (3.8-10.6) k/uL RBC (4.30-5.90) m/uL Hgb (13.0-17.5) gm/dL Hct (39.0-53.0) % MCHC (31.0-37.0) g/dL RDW (11.5-15.5) % Neutrophils # (1.3-7.7) k/uL Sodium (137-145) mmol/L Potassium (3.5-5.1) mmol/L Chloride (98-107) mmol/L BUN (9-20) mg/dL Creatinine (0.66-1.25) mg/dL Glucose (74-99) mg/dL POC Glucose (mg/dL) 119 H 148 H (75-99) mg/dL Iron 34 L (65-175) ug/dL Iron Saturation 13.88 L (15.00-50.00) Ferritin 969.2 H (22.0-322.0) ng/mL 05/01/19 05/01/19 05/01/19 Range/Units 15:16 17:01 20:30 WBC (3.8-10.6) k/uL RBC (4.30-5.90) m/uL Hgb (13.0-17.5) gm/dL Hct (39.0-53.0) % MCHC (31.0-37.0) g/dL RDW (11.5-15.5) % Neutrophils # (1.3-7.7) k/uL Sodium (137-145) mmol/L Potassium (3.5-5.1) mmol/L Chloride (98-107) mmol/L BUN (9-20) mg/dL Creatinine (0.66-1.25) mg/dL Glucose (74-99) mg/dL POC Glucose (mg/dL) 172 H 164 H 205 H (75-99) mg/dL Iron (65-175) ug/dL Iron Saturation (15.00-50.00) Ferritin (22.0-322.0) ng/mL 05/02/19 05/02/19 05/02/19 Range/Units 05:50 05:50 06:02 WBC 12.2 H (3.8-10.6) k/uL RBC 2.85 L (4.30-5.90) m/uL Hgb 7.6 L (13.0-17.5) gm/dL Hct 25.0 L (39.0-53.0) % MCHC 30.5 L (31.0-37.0) g/dL RDW 18.5 H (11.5-15.5) % Neutrophils # 10.0 H (1.3-7.7) k/uL Sodium 132 L (137-145) mmol/L Potassium 5.4 H (3.5-5.1) mmol/L Chloride 92 L (98-107) mmol/L BUN 60 H (9-20) mg/dL Creatinine 4.60 H (0.66-1.25) mg/dL Glucose 181 H (74-99) mg/dL POC Glucose (mg/dL) 192 H (75-99) mg/dL Iron (65-175) ug/dL Iron Saturation (15.00-50.00) Ferritin (22.0-322.0) ng/mL Microbiology - Last 24 Hours (Table) 05/01/19 10:01 Acid Fast Bacilli Smear - Final Pleural Fluid Acid Fast Bacilli Culture - Preliminary 05/01/19 10:01 Acid Fast Bacilli Smear - Final Lung - Right Acid Fast Bacilli Culture - Preliminary 05/01/19 10:01 Fungal Culture - Preliminary Pleural Fluid 05/01/19 10:01 Fungal Culture - Preliminary Lung - Right Assessment and Plan Assessment: Impression: #1 Chronic right-sided pleural effusion with trapped lung, status post right thoracotomy, total decortication of the right lung, cryoablation intercostal nurse. Fluid for cytology and cultures pending, right pleural peel for pathology and culture pending. [address] Positive air leak. #2 Previous admission for right pleural effusion, loculated, status post thoracentesis and pigtail placement without significant improvement. #3 Acute hypoxic respiratory failure secondary to above. #4 Hypertension #5 Hyperlipidemia #6 History of type 1 diabetes mellitus with previous history of DKA, diabetic retinopathy and neuropathy #7 Peripheral vascular disease with history of diabetic ulcers and amputations of digits on the left foot #8 End-stage renal disease on hemodialysis #9 History of GI bleeding #10 GERD/reflux Plan: The patient was seen and evaluated by Dr. Sukhdeep. Chest x-ray, labs reviewed. Chest tubes in place. Positive air leak. He is working well with the incentive spirometer and cough and deep breathing exercises. Increase his activity as tolerated. We'll continue to follow and make further recommendations based on his clinical status. I, the cosigning physician, performed a history & physical examination of the patient. Lungs sounds scattered rhonchi, crackles in the right base. Maintaining good O2 saturations in the 90s on 2 L/m per nasal cannula. I discussed the assessment and plan of care with my nurse practitioner, Alisha Hodges. I attest to the above note as dictated by her.
[2019-05-02 12:03] LABS: Glucose,Whole Blood 165 mg/dL (75-99)
--- NOTE | 2019-05-02 12:10 | P.PN ---
Subjective Patient is seen in follow-up for end-stage renal disease. He is maintained on hemodialysis on a Sunday schedule. Currently seen while undergoing hemodialysis. No chest pain. Does admit to some dyspnea. Vital signs are stable. General: The patient appeared well nourished and normally developed. HEENT: Head exam is unremarkable. Neck is without jugular venous distension. LUNGS: Lungs are clear to auscultation and percussion. Breath sounds decreased. Chest tubes noted. HEART: Rate and Rhythm are regular. First and second heart sounds normal. No murmurs, rubs or gallops. ABDOMEN: Abdominal exam reveals normal bowel sounds. Non-tender and non- distended. No evidence of peritonitis. EXTREMITITES: No clubbing, cyanosis, or edema. Objective - Vital Signs Vital signs: Vital Signs Temp 99 F 05/02/19 08:00 Pulse 92 05/02/19 11:39 Resp 17 05/02/19 08:00 BP 160/92 05/02/19 08:00 Pulse Ox 97 05/02/19 08:00 Intake & Output 05/01/19 05/02/19 05/02/19 18:59 06:59 18:59 Intake Total 910.2 760.85 280.667 Output Total 1060 345 Balance -149.8 415.85 280.667 Weight 49.215 kg Intake: IV 670.2 Intake, IV Titration 60.85 40.667 Amount Ropivacaine 400 mg 60.85 40.667 Hydromorphone (Pf) 1.25 mg In Sodium Chloride 0.9 % 170 ml @ Per Protocol EPIDURAL .Q0M PRN Rx#: [id number] Oral 240 700 240 Output: Chest Tube Drainage 445 345 Chest Tube Right 380 300 Chest Tube Right Lateral 10 5 Chest Chest Tube Right Upper 55 40 Urine 0 0 Estimated Blood Loss 615 - Labs CBC & Chem 7: 05/02/19 05:50 05/02/19 05:50 Labs: Abnormal Lab Results - Last 24 Hours (Table) 05/01/19 05/01/19 05/01/19 Range/Units 06:43 12:05 14:04 WBC (3.8-10.6) k/uL RBC (4.30-5.90) m/uL Hgb (13.0-17.5) gm/dL Hct (39.0-53.0) % MCHC (31.0-37.0) g/dL RDW (11.5-15.5) % Neutrophils # (1.3-7.7) k/uL Sodium (137-145) mmol/L Potassium (3.5-5.1) mmol/L Chloride (98-107) mmol/L BUN (9-20) mg/dL Creatinine (0.66-1.25) mg/dL Glucose (74-99) mg/dL POC Glucose (mg/dL) 119 H 148 H (75-99) mg/dL Iron 34 L (65-175) ug/dL Iron Saturation 13.88 L (15.00-50.00) Ferritin 969.2 H (22.0-322.0) ng/mL 05/01/19 05/01/19 05/01/19 Range/Units 15:16 17:01 20:30 WBC (3.8-10.6) k/uL RBC (4.30-5.90) m/uL Hgb (13.0-17.5) gm/dL Hct (39.0-53.0) % MCHC (31.0-37.0) g/dL RDW (11.5-15.5) % Neutrophils # (1.3-7.7) k/uL Sodium (137-145) mmol/L Potassium (3.5-5.1) mmol/L Chloride (98-107) mmol/L BUN (9-20) mg/dL Creatinine (0.66-1.25) mg/dL Glucose (74-99) mg/dL POC Glucose (mg/dL) 172 H 164 H 205 H (75-99) mg/dL Iron (65-175) ug/dL Iron Saturation (15.00-50.00) Ferritin (22.0-322.0) ng/mL 05/02/19 05/02/19 05/02/19 Range/Units 05:50 05:50 06:02 WBC 12.2 H (3.8-10.6) k/uL RBC 2.85 L (4.30-5.90) m/uL Hgb 7.6 L (13.0-17.5) gm/dL Hct 25.0 L (39.0-53.0) % MCHC 30.5 L (31.0-37.0) g/dL RDW 18.5 H (11.5-15.5) % Neutrophils # 10.0 H (1.3-7.7) k/uL Sodium 132 L (137-145) mmol/L Potassium 5.4 H (3.5-5.1) mmol/L Chloride 92 L (98-107) mmol/L BUN 60 H (9-20) mg/dL Creatinine 4.60 H (0.66-1.25) mg/dL Glucose 181 H (74-99) mg/dL POC Glucose (mg/dL) 192 H (75-99) mg/dL Iron (65-175) ug/dL Iron Saturation (15.00-50.00) Ferritin (22.0-322.0) ng/mL 05/02/19 Range/Units 11:50 WBC (3.8-10.6) k/uL RBC (4.30-5.90) m/uL Hgb (13.0-17.5) gm/dL Hct (39.0-53.0) % MCHC (31.0-37.0) g/dL RDW (11.5-15.5) % Neutrophils # (1.3-7.7) k/uL Sodium (137-145) mmol/L Potassium (3.5-5.1) mmol/L Chloride (98-107) mmol/L BUN (9-20) mg/dL Creatinine (0.66-1.25) mg/dL Glucose (74-99) mg/dL POC Glucose (mg/dL) 165 H (75-99) mg/dL Iron (65-175) ug/dL Iron Saturation (15.00-50.00) Ferritin (22.0-322.0) ng/mL Microbiology - Last 24 Hours (Table) 05/01/19 10:01 Acid Fast Bacilli Smear - Final Pleural Fluid Acid Fast Bacilli Culture - Preliminary 05/01/19 10:01 Acid Fast Bacilli Smear - Final Lung - Right Acid Fast Bacilli Culture - Preliminary 05/01/19 10:01 Fungal Culture - Preliminary Pleural Fluid 05/01/19 10:01 Fungal Culture - Preliminary Lung - Right Assessment and Plan Plan: Assessment: 1. End-stage renal disease maintained on hemodialysis on a Sunday schedule via right upper extremity AV fistula. 2. Chronic right-sided loculated effusion status post thoracotomy and decortication of the right lung on May 01. 3. Hypertension with chronic kidney disease. Controlled. 4. Anemia of chronic kidney disease maintained on Aranesp. Iron deficiency noted. 5. Chronic kidney disease mineral bone disease maintained on PhosLo. 6. Insulin-dependent diabetes mellitus. 7. Hyponatremia secondary to chronic kidney disease. Plan: Currently seen while undergoing hemodialysis. Next treatment on Sunday. IV iron 3 doses. First dose today.
[2019-05-02] MEDS: SODIUM FERRIC GLUCONAT-SUCROSE 125 MG in SODIUM CHLORIDE 0.9% 100 ML IVPB SCH (13:21)
[2019-05-02] MEDS ORDERED: diphenhydrAMINE 25 MG CAP PO PRN (14:36)
--- NOTE | 2019-05-02 16:10 | P.PN ---
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 POD #1 right thoracotomy and total decortication right lung, cryoablation intercostal nerve. Postoperative acute blood loss anemia, expected Patient is sitting up to the bedside chair on the 3 S. cardiac stepdown unit. He is in no acute distress. Oxygen saturation is 96% on 3 L nasal cannula. He is rating his pain 6 out of 10 on the pain scale and is complaining of surgical type pain. Epidurals in place and infusing at 9 mL per hour. Achieving 750 mL on his incentive spirometry with encouragement. 3 right pleural chest tubes rem ain in place to low continuous wall suction -20 cm H2O. Airleak present to his posterior and middle right pleural chest tubes. He is scheduled for hemodialysis today. He remains afebrile. Objective - Vital Signs Vital signs: Vital Signs Temp 99 F 05/02/19 08:00 Pulse 90 05/02/19 15:46 Resp 18 05/02/19 12:15 BP 149/83 05/02/19 12:15 Pulse Ox 96 05/02/19 15:46 Intake & Output 05/01/19 05/02/19 05/02/19 18:59 06:59 18:59 Intake Total 910.2 760.85 786.667 Output Total 1060 345 136 Balance -149.8 415.85 650.667 Weight 49.215 kg 49.215 kg Intake: IV 670.2 Intake, IV Titration 60.85 186.667 Amount Ropivacaine 400 mg 60.85 40.667 Hydromorphone (Pf) 1.25 mg In Sodium Chloride 0.9 % 170 ml @ Per Protocol EPIDURAL .Q0M PRN Rx#: [id number] Ropivacaine 400 mg 46 Hydromorphone (Pf) 5 mg In Sodium Chloride 0.9% 170 ml @ Per Protocol EPIDURAL .Q0M PRN Rx#: [id number] ceFAZolin 2 gm In Sodium 100 Chloride 0.9% 50 ml @ 100 mls/hr IVPB Q8HR [facility] Rx# :[id number] Oral 240 700 600 Output: Chest Tube Drainage 445 345 136 Chest Tube Right 380 300 110 Chest Tube Right Lateral 10 5 6 Chest Chest Tube Right Upper 55 40 20 Urine 0 0 Estimated Blood Loss 615 - Constitutional General appearance: Present: cooperative, no acute distress, thin - Respiratory Details: Lung sounds with few scattered rhonchi throughout. Diminished to his right lower lobe. Respirations are symmetrical and nonlabored. Oxygen saturation 97% on 2 L nasal cannula. Right pleural chest tubes remain in place to low continuous wall suction -20 cm H2O. Intermittent air leak is present to his right posterior chest tube and middle chest tube. Draining thin serosanguineous drainage. Achieving 750 mL on his incentive spirometry. - Cardiovascular Details: Regular rhythm and rate. S1 and S2 present, negative for S3, gallop or murmur. No edema present. - Gastrointestinal Gastrointestinal Comment(s): Abdomen soft, nontender and nondistended. Hypoactive bowel sounds present in all 4 abdominal quadrants. No guarding or rigidity. No organomegaly appr eciated. - Genitourinary Genitourinary Comment(s): Anuric, scheduled to receive hemodialysis today. Right arm AV fistula with good thrill and bruit. - Integumentary Integumentary Comment(s): Skin is warm and dry. No clubbing or cyanosis is present. Right thoracotomy incision is clean, dry and approximated. No drainage or redness at present. Gauze dressing is clean, dry and intact. - Neurologic Neurologic: Present: CNII-XII intact - Musculoskeletal Musculoskeletal: Present: gait normal, generalized weakness, strength equal bilaterally - Psychiatric Psychiatric: Present: A&O x's 3, appropriate affect, intact judgment & insight - Allied health notes Allied health notes reviewed: nursing - Labs CBC & Chem 7: 05/02/19 05:50 05/02/19 05:50 Labs: Abnormal Lab Results - Last 24 Hours (Table) 05/01/19 05/01/19 05/01/19 Range/Units 06:43 17:01 20:30 WBC (3.8-10.6) k/uL RBC (4.30-5.90) m/uL Hgb (13.0-17.5) gm/dL Hct (39.0-53.0) % MCHC (31.0-37.0) g/dL RDW (11.5-15.5) % Neutrophils # (1.3-7.7) k/uL Sodium (137-145) mmol/L Potassium (3.5-5.1) mmol/L Chloride (98-107) mmol/L BUN (9-20) mg/dL Creatinine (0.66-1.25) mg/dL Glucose (74-99) mg/dL POC Glucose (mg/dL) 164 H 205 H (75-99) mg/dL Iron 34 L (65-175) ug/dL Iron Saturation 13.88 L (15.00-50.00) Ferritin 969.2 H (22.0-322.0) ng/mL 05/02/19 05/02/19 05/02/19 Range/Units 05:50 05:50 06:02 WBC 12.2 H (3.8-10.6) k/uL RBC 2.85 L (4.30-5.90) m/uL Hgb 7.6 L (13.0-17.5) gm/dL Hct 25.0 L (39.0-53.0) % MCHC 30.5 L (31.0-37.0) g/dL RDW 18.5 H (11.5-15.5) % Neutrophils # 10.0 H (1.3-7.7) k/uL Sodium 132 L (137-145) mmol/L Potassium 5.4 H (3.5-5.1) mmol/L Chloride 92 L (98-107) mmol/L BUN 60 H (9-20) mg/dL Creatinine 4.60 H (0.66-1.25) mg/dL Glucose 181 H (74-99) mg/dL POC Glucose (mg/dL) 192 H (75-99) mg/dL Iron (65-175) ug/dL Iron Saturation (15.00-50.00) Ferritin (22.0-322.0) ng/mL 05/02/19 Range/Units 11:50 WBC (3.8-10.6) k/uL RBC (4.30-5.90) m/uL Hgb (13.0-17.5) gm/dL Hct (39.0-53.0) % MCHC (31.0-37.0) g/dL RDW (11.5-15.5) % Neutrophils # (1.3-7.7) k/uL Sodium (137-145) mmol/L Potassium (3.5-5.1) mmol/L Chloride (98-107) mmol/L BUN (9-20) mg/dL Creatinine (0.66-1.25) mg/dL Glucose (74-99) mg/dL POC Glucose (mg/dL) 165 H (75-99) mg/dL Iron (65-175) ug/dL Iron Saturation (15.00-50.00) Ferritin (22.0-322.0) ng/mL Microbiology - Last 24 Hours (Table) 05/01/19 10:01 Acid Fast Bacilli Smear - Final Pleural Fluid Acid Fast Bacilli Culture - Preliminary 05/01/19 10:01 Acid Fast Bacilli Smear - Final Lung - Right Acid Fast Bacilli Culture - Preliminary 05/01/19 10:01 Fungal Culture - Preliminary Pleural Fluid 05/01/19 10:01 Fungal Culture - Preliminary Lung - Right - Imaging and Cardiology Chest x-ray: report reviewed, image reviewed Assessment and Plan Assessment: 1. Right chronic loculated pleural effusion with trapped lung, status post right thoracotomy, total decortication right lung, cryoablation intercostal nerve 2. End-stage renal disease, on hemodialysis Sunday, Sunday and Fridays 3. Hypertension 4. Hyperlipidemia 5. Uncontrolled diabetes mellitus, diabetic neuropathy 6. History of GI bleed 7. GERD Plan: 1. Keep right pleural chest tubes in place to low continuous wall suction for at least another 24 hours. Continue strict I's and O's. 2. Hemodialysis management per nephrology's recommendations. Avoid nephrotoxic agents. 3. Epidural management per anesthesia. 4. Encourage use of his incentive spirometry every hour while awake. 5. Wean oxygen as tolerated, bronchodilator management per pulmonary medicine. 6. Pathology/cytology results remain pending. 7. Out of bed for all meals. Physical/occupational therapy consulted. 8. GI and DVT prophylaxis. 9. Medical management recommendations per primary care service. 10. More recommendations to follow based on patient's clinical course. Time with Patient: Greater than 30
[2019-05-02 16:50] LABS: Glucose,Whole Blood 164 mg/dL (75-99)
--- NOTE | 2019-05-02 19:00 | PN ---
PROGRESS NOTE DATE OF SERVICE: 05/02/2019 This 39-year-old gentleman who was admitted after decortication of the right lung for chronic loculated pleural effusion is being closely monitored. Chest tubes still in place. Multiple consultants are following the patient closely. The patient is receiving hemodialysis today. Sodium is 132 and potassium 5.4. PAST MEDICAL HISTORY: Reviewed. REVIEW OF SYSTEMS: CARDIOVASCULAR SYSTEM: No angina or palpitations. RESPIRATORY: As mentioned earlier. GI no nausea or vomiting. : As mentioned earlier. NERVOUS SYSTEM: No numbness or weakness. CURRENT MEDICATIONS: Include: 1. Tylenol 1000 q.6h p.r.n. 2. DuoNeb q.i.d. and p.r.n. 3. Norvasc 10 mg q.h.s. 4. Abilify 10 mg q.h.s. 5. Dulcolax 10 mg p.r.n. 6. PhosLo 667 t.i.d. 7. Coreg 6.25 mg b.i.d. 8. Catapres 0.1 t.i.d. 10.Pristiq ER 100 mg q.h.s. 11.Bentyl 20 mg q.h.s. 12.Benadryl. 13.Heparin 5000 subcu q.8h. 14.Apresoline 100 mg p.o. daily. 15.Levemir 10 units subcu q.h.s. 16.Multivitamins one p.o. daily. 17.Narcan 0.2 q.2 p.r.n. 18.Zofran. 19.Protonix. 20.Pravachol. 21.Ropivacaine. 22.Zanaflex. PHYSICAL EXAM: Patient is alert, oriented x2. Pulse is 67. Blood pressure 140/88, respiration 18. Temp 98.4, pulse ox 97% on 3 L. HEENT: Conjunctivae normal. NECK: No JVD. CARDIOVASCULAR: S1, S2 muffled. RESPIRATIONS: Breath sounds diminished in the bases. Bilateral scattered rhonchi and crackles. ABDOMEN: Soft, nontender. No mass palpable. LEGS: No edema. No swelling. NERVOUS SYSTEM: No focal deficits. LABS: WBC 12.2, hemoglobin ntd, sodium 132, potassium 5.5. Creatinine is 4.60. ASSESSMENT: 1. Status post right thoracotomy as well as total decortication of the right lung for right chronic loculated pleural effusion with trapped lung. 2. Chronic renal failure on hemodialysis. 3. Diabetes type 2. 4. Postoperative hypoxia possible atelectasis. 5. Hyponatremia. 6. Anemia, normocytic anemia of chronic disease. 7. History of asthma, chronic, intermittent. 8. Gastroesophageal reflux disease. 9. History of gastrointestinal bleed. 10.Hypertension. 11.Hyperlipidemia. 12.History of pneumonia. 13.History of loculated pleural effusion and pigtail catheter history on the right. 14.History of hiatal hernia. 15.History of peptic ulcer disease. 16.History of cardiac tamponade surgery. 17.History of osteomyelitis of the left foot. 18.History of MRSA. 19.History of W[employer] TECH[employer]ICIAN shunt. 20.History of depression. RECOMMENDATIONS AND DISCUSSION: Recommend to continue current medications, continue with monitoring, management and symptomatic treatment. Otherwise, at this time, I recommend continue with current medications. The most recent chest x-ray which was reviewed by me personally showed some opacities on the right side, but however the oxygen is well maintained. Patient cardiomegaly. Continue with current medications. Repeat labs have been ordered. I would also recommend continue with hemodialysis. Otherwise, monitor blood sugars closely. Sugars are fairly controlled at this time. Continue to monitor. DVT prophylaxis. See orders for details. MMODL / IJN: [id number] / MTDD
[2019-05-02] MEDS: amLODIPine 10 MG TAB PO SCH (20:29)
[2019-05-02] MEDS: PRAVASTATIN SODIUM 40 MG TAB PO SCH (20:29)
[2019-05-02] MEDS: DESVENLAFAXINE SUCCINATE 50 MG TAB.ER.24H PO SCH (20:29)
[2019-05-02] MEDS: PANTOPRAZOLE 40 MG TABLET PO SCH (20:29)
[2019-05-02] MEDS: ARIPiprazole 10 MG TAB PO SCH (20:29)
[2019-05-02] MEDS: MULTIVITAMINS, THERA 1 EACH TAB PO SCH (20:29)
[2019-05-02 21:21] LABS: Glucose,Whole Blood 253 mg/dL (75-99)
[2019-05-02] MEDS: INSULIN DETEMIR (LEVEMIR) 100 UNIT/ML SYR SQ SCH (21:35)
[2019-05-03] MEDS: ACETAMINOPHEN TAB 500 MG TAB PO PRN ×2 (04:14→20:57)
[2019-05-03 06:26] LABS: Anisocytosis Slight; Basophils # (A) 0.1 k/uL (0-0.2); Basophils % (A) 1 %; Eosinophils # (A) 0.2 k/uL (0-0.7); Eosinophils % (A) 2 %; HCT 22.4 % (39.0-53.0); Hypochromasia Moderate; Lymphocytes # (A) 0.7 k/uL (1.0-4.8); Lymphocytes % (A) 8 %; MCH 27.6 pg (25.0-35.0); MCHC 31.3 g/dL (31.0-37.0); MCV 88.2 fL (80.0-100.0); Mean Platelet Volume 7.7; Monocytes # (A) 0.6 k/uL (0-1.0); Monocytes % (A) 7 %; Neutrophils # (A) 7.2 k/uL (1.3-7.7); Neutrophils % (A) 82 %; Platelet Count 244 k/uL (150-450); RBC 2.55 m/uL (4.30-5.90); RDW 18.4 % (11.5-15.5); WBC 8.8 k/uL (3.8-10.6)
[2019-05-03 06:39] LABS: Glucose,Whole Blood 116 mg/dL (75-99)
[2019-05-03 06:45] LABS: Calcium 8.4 mg/dL (8.4-10.2)
[2019-05-03] MEDS: CARVEDILOL 6.25 MG TAB PO SCH ×2 (07:02→17:35)
[2019-05-03] MEDS: CALCIUM ACETATE 667 MG CAP PO SCH ×3 (07:02→17:35)
[2019-05-03] MEDS: INSULIN ASPART (NovoLOG) 100 UNIT/ML VIAL SQ SCH ×4 (07:30→20:47)
[2019-05-03] MEDS: IPRATROPIUM-ALBUTEROL 3 ML NEB IH SCH ×4 (08:40→19:53)
--- NOTE | 2019-05-03 09:15 | P.PN ---
Subjective Patient is seen in follow-up for end-stage renal disease. He is maintained on hemodialysis on a Sunday schedule. Tolerated hemodialysis yesterday. No chest pain. Dyspnea little better. Vital signs are stable. General: The patient appeared well nourished and normally developed. HEENT: Head exam is unremarkable. Neck is without jugular venous distension. LUNGS: Lungs are clear to auscultation and percussion. Breath sounds decreased. Chest tubes noted. HEART: Rate and Rhythm are regular. First and second heart sounds normal. No murmurs, rubs or gallops. ABDOMEN: Abdominal exam reveals normal bowel sounds. Non-tender and non- distended. No evidence of peritonitis. EXTREMITITES: No clubbing, cyanosis, or edema. Objective - Vital Signs Vital signs: Vital Signs Temp 100 F H 05/03/19 07:04 Pulse 92 05/03/19 08:51 Resp 18 05/03/19 04:00 BP 158/85 05/03/19 04:00 Pulse Ox 93 L 05/03/19 04:00 Intake & Output 05/02/19 05/03/19 05/03/19 18:59 06:59 18:59 Intake Total 832.117 103.158 120 Output Total 3136 Balance -2303.883 103.158 120 Weight 49.215 kg 94.347 kg Intake: Intake, IV Titration 232.117 103.158 Amount Ropivacaine 400 mg 86.117 103.158 Hydromorphone (Pf) 1.25 mg In Sodium Chloride 0.9 % 170 ml @ Per Protocol EPIDURAL .Q0M PRN Rx#: [id number] Ropivacaine 400 mg 46 Hydromorphone (Pf) 5 mg In Sodium Chloride 0.9% 170 ml @ Per Protocol EPIDURAL .Q0M PRN Rx#: [id number] ceFAZolin 2 gm In Sodium 100 Chloride 0.9% 50 ml @ 100 mls/hr IVPB Q8HR [facility] Rx# :[id number] Oral 600 120 Output: Chest Tube Drainage 136 Chest Tube Right 110 Chest Tube Right Lateral 6 Chest Chest Tube Right Upper 20 Hemodialysis 3000 Other: # Voids 0 - Labs CBC & Chem 7: 05/03/19 05:29 05/03/19 05:29 Labs: Abnormal Lab Results - Last 24 Hours (Table) 04/29/19 05/02/19 05/02/19 Range/Units 10:39 11:50 16:39 RBC (4.30-5.90) m/uL Hgb (13.0-17.5) gm/dL Hct (39.0-53.0) % RDW (11.5-15.5) % Lymphocytes # (1.0-4.8) k/uL Sodium (137-145) mmol/L Chloride (98-107) mmol/L BUN (9-20) mg/dL Creatinine (0.66-1.25) mg/dL Glucose (74-99) mg/dL POC Glucose (mg/dL) 165 H 164 H (75-99) mg/dL Crossmatch See Detail 05/02/19 05/03/19 05/03/19 Range/Units 21:20 05:29 05:29 RBC 2.55 L (4.30-5.90) m/uL Hgb 7.0 L (13.0-17.5) gm/dL Hct 22.4 L (39.0-53.0) % RDW 18.4 H (11.5-15.5) % Lymphocytes # 0.7 L (1.0-4.8) k/uL Sodium 133 L (137-145) mmol/L Chloride 92 L (98-107) mmol/L BUN 35 H (9-20) mg/dL Creatinine 4.02 H (0.66-1.25) mg/dL Glucose 115 H (74-99) mg/dL POC Glucose (mg/dL) 253 H (75-99) mg/dL Crossmatch 05/03/19 Range/Units 06:38 RBC (4.30-5.90) m/uL Hgb (13.0-17.5) gm/dL Hct (39.0-53.0) % RDW (11.5-15.5) % Lymphocytes # (1.0-4.8) k/uL Sodium (137-145) mmol/L Chloride (98-107) mmol/L BUN (9-20) mg/dL Creatinine (0.66-1.25) mg/dL Glucose (74-99) mg/dL POC Glucose (mg/dL) 116 H (75-99) mg/dL Crossmatch Assessment and Plan Plan: Assessment: 1. End-stage renal disease maintained on hemodialysis on a Sunday schedule via right upper extremity AV fistula. 2. Chronic right-sided loculated effusion status post thoracotomy and decorti cation of the right lung on May 01. 3. Hypertension with chronic kidney disease. 4. Anemia of chronic kidney disease maintained on Aranesp. Iron deficiency noted. 5. Chronic kidney disease mineral bone disease maintained on PhosLo. 6. Insulin-dependent diabetes mellitus. 7. Hyponatremia secondary to chronic kidney disease. Better. Plan: Hemodialysis on Sunday. IV iron 3 doses. Second dose today. Monitor hemoglobin.
[2019-05-03] MEDS: HEPARIN SODIUM,PORCINE 5,000 UNIT/ML 1 ML VIAL SQ SCH ×3 (09:26→15:54)
[2019-05-03] MEDS: cloNIDine HCL 0.1 MG TAB PO SCH ×3 (09:26→21:30)
[2019-05-03] MEDS: SODIUM FERRIC GLUCONAT-SUCROSE 125 MG in SODIUM CHLORIDE 0.9% 100 ML IVPB SCH (09:26)
[2019-05-03] MEDS: hydrALAZINE HCL 50 MG TAB PO SCH ×3 (09:26→20:46)
--- NOTE | 2019-05-03 09:26 | XR ---
EXAMINATION TYPE: XR chest 1V portable DATE OF EXAM: 05/03/2019 COMPARISON: 05/02/2019 INDICATION: Postoperative right thoracotomy with decortication TECHNIQUE: Single frontal view of the chest is obtained. FINDINGS: The heart size is moderately prominent. The pulmonary vasculature is normal. Right lower lobe infiltrate is present. Small pleural effusions are present. No pneumothorax is evide nt. Right-sided chest tubes are present. IMPRESSION: 1. Mild bibasilar infiltrates and small pleural effusions. 2. There are 2 right-sided chest tube stable in position. No pneumothorax is evident.
--- NOTE | 2019-05-03 10:48 | P.PN ---
Progress Note - Text Progress Note Date: 05/03/19 Anesthesia POD 2. Status Post right pulmonary decortication under general end otracheal anesthesia with an epidrual catheter placed at T8 for post surgical pain releif. VAS 5/10, Lower extremity strength (4/4). Mild sedation. Site looks good, clean, dry. Pump continues to deliver at 7cc/hr. solution per EMR. Patient reports pain is "ok", but still has some pain. Will continue catheter for one more day.
[2019-05-03] MEDS: SODIUM CHLORIDE 0.9% EPIDURAL PRN (11:06)
[2019-05-03] MEDS: ROPIVACAINE EPIDURAL PRN (11:06)
[2019-05-03] MEDS: HYDROMORPHONE EPIDURAL PRN (11:06)
--- NOTE | 2019-05-03 11:12 | P.PN ---
Subjective Progress Note Date: 05/03/19 Principal diagnosis: Right chronic loculated pleural effusion with trapped lung, history of end-stage renal disease with hemodialysis Sunday, Sunday and Fridays, uncontrolled di abetes mellitus, diabetic neuropathy, hypertension, hyperlipidemia, history of GI bleed, gastroesophageal reflux disease, pericardial effusion with tamponade status post pericardial window and bilateral pleural effusion status post bilateral thoracentesis. POD #2 right thoracotomy and total decortication right lung, cryoablation intercostal nerve. Postoperative acute blood loss anemia, expected The patient is laying in bed on the 3 S. cardiac stepdown unit, he is quite sedated this morning. The patient is opening up his eyes with verbal stimuli but is following asleep with conversation. He is in no acute distress. Oxygen saturation is 93% on room air. He is achieving 500 mL on his incentive spirometry with much prompting an encouragement. He denies any complaints of pain or shortness of breath this time. Epidural is in place and infusing at 12 mL per hour site of the epidural is clean and intact. He has 3 right pleural chest tubes remain in place to low continuous wall suction -20 cm H2O. intermittent airleak present to his posterior right pleural chest tube. He remains afebrile. Discussed with the patient the importance of ambulating and using his incentive spirometry. T-max temperature in the last 24 hours is 100.1F Objective - Vital Signs Vital signs: Vital Signs Temp 99.0 F 05/03/19 09:33 Pulse 76 05/03/19 09:33 Resp 13 05/03/19 09:33 BP 144/73 05/03/19 09:33 Pulse Ox 85 L 05/03/19 09:33 Intake & Output 05/02/19 05/03/19 05/03/19 18:59 06:59 18:59 Intake Total 832.117 103.158 120 Output Total 3136 Balance -2303.883 103.158 120 Weight 49.215 kg 94.347 kg Intake: Intake, IV Titration 232.117 103.158 Amount Ropivacaine 400 mg 86.117 103.158 Hydromorphone (Pf) 1.25 mg In Sodium Chloride 0.9 % 170 ml @ Per Protocol EPIDURAL .Q0M PRN Rx#: [id number] Ropivacaine 400 mg 46 Hydromorphone (Pf) 5 mg In Sodium Chloride 0.9% 170 ml @ Per Protocol EPIDURAL .Q0M PRN Rx#: [id number] ceFAZolin 2 gm In Sodium 100 Chloride 0.9% 50 ml @ 100 mls/hr IVPB Q8HR [facility] Rx# :[id number] Oral 600 120 Output: Chest Tube Drainage 136 Chest Tube Right 110 Chest Tube Right Lateral 6 Chest Chest Tube Right Upper 20 Hemodialysis 3000 Other: # Voids 0 - Constitutional General appearance: Present: cooperative, no acute distress, thin - Respiratory Details: Lung sounds with few scattered crackles and rhonchi to his right lobes, essentially clear to his left lobes with few scattered crackles to his left lower lobe. Respirations are symmetrical and nonlabored. Oxygen saturation are 93% on room air. Achieving 500 mL on his incentive spirometry. Right pleural chest tubes in place to low continuous wall suction -20 cm H2O. Intermittent air leak present to his posterior right pleural chest tube. Chest tubes are draining thin serosanguineous drainage with his posterior chest tube draining 350 mL output in the last 24 hours, middle right pleural chest tube with 120 mL output in the last 24 hours, and right anterior pleural chest tube with 10 mL output in the last 24 hours. - Cardiovascular Details: Regular rhythm and rate. S1 and S2 present, negative for S3, gallop or murmur. Remote telemetry showing normal sinus rhythm heart rate 90. No edema present. Sequential compression devices in place to his bilateral lower extremities. - Gastrointestinal Gastrointestinal Comment(s): Abdomen is soft, nontender and nondistended. Active bowel sounds present in all 4 abdominal quadrants. No guarding or rigidity. No organomegaly appreciated. Tolerating oral intake. - Genitourinary Genitourinary Comment(s): Hemodialysis Sunday schedule. Right arm AV fistula with positive thrill and bruit. Hemodialysis yesterday. - Integumentary Integumentary Comment(s): Skin is warm and dry. No clubbing or cyanosis is present. No rash or abnormal pigmentation is present. Epidural insertion site is clean, dry and intact. Right thoracotomy incision is clean, dry and intact. No drainage or redness is present. - Neurologic Neurologic: Present: CNII-XII intact - Musculoskeletal Musculoskeletal: Present: gait normal, generalized weakness, strength equal bilaterally - Psychiatric Psychiatric Comment(s): Flat affect. Psychiatric: Present: A&O x's 3, intact judgment & insight - Allied health notes Allied health notes reviewed: nursing - Labs CBC & Chem 7: 05/03/19 05:29 05/03/19 05:29 Labs: Abnormal Lab Results - Last 24 Hours (Table) 04/29/19 05/02/19 05/02/19 Range/Units 10:39 11:50 16:39 RBC (4.30-5.90) m/uL Hgb (13.0-17.5) gm/dL Hct (39.0-53.0) % RDW (11.5-15.5) % Lymphocytes # (1.0-4.8) k/uL Sodium (137-145) mmol/L Chloride (98-107) mmol/L BUN (9-20) mg/dL Creatinine (0.66-1.25) mg/dL Glucose (74-99) mg/dL POC Glucose (mg/dL) 165 H 164 H (75-99) mg/dL Crossmatch See Detail 05/02/19 05/03/19 05/03/19 Range/Units 21:20 05:29 05:29 RBC 2.55 L (4.30-5.90) m/uL Hgb 7.0 L (13.0-17.5) gm/dL Hct 22.4 L (39.0-53.0) % RDW 18.4 H (11.5-15.5) % Lymphocytes # 0.7 L (1.0-4.8) k/uL Sodium 133 L (137-145) mmol/L Chloride 92 L (98-107) mmol/L BUN 35 H (9-20) mg/dL Creatinine 4.02 H (0.66-1.25) mg/dL Glucose 115 H (74-99) mg/dL POC Glucose (mg/dL) 253 H (75-99) mg/dL Crossmatch 05/03/19 Range/Units 06:38 RBC (4.30-5.90) m/uL Hgb (13.0-17.5) gm/dL Hct (39.0-53.0) % RDW (11.5-15.5) % Lymphocytes # (1.0-4.8) k/uL Sodium (137-145) mmol/L Chloride (98-107) mmol/L BUN (9-20) mg/dL Creatinine (0.66-1.25) mg/dL Glucose (74-99) mg/dL POC Glucose (mg/dL) 116 H (75-99) mg/dL Crossmatch - Imaging and Cardiology Chest x-ray: report reviewed, image reviewed Assessment and Plan Assessment: 1. Right chronic loculated pleural effusion with trapped lung, status post right thoracotomy, total decortication right lung, cryoablation intercostal nerve 2. End-stage renal disease, on hemodialysis Sunday, Sunday and Fridays 3. Hypertension 4. Hyperlipidemia 5. Uncontrolled diabetes mellitus, diabetic neuropathy 6. History of GI bleed 7. GERD Plan: 1. Place right pleural chest tubes in place to water seal. Continue strict I's and O's. 2. Hemodialysis management per nephrology's recommendations. Avoid nephrotoxic agents. 3. Epidural management per anesthesia. 4. Encourage use of his incentive spirometry every hour while awake. 5. Bronchodilator management per pulmonary medicine. 6. Right lung decortication pathology showed fibromembranous pleural scar with fibrin disposition consistent with reaction to chronic pneumothorax, cytology results showed mixed inflammation and reactive mesothelial cells. Cells cytologically diagnostic of malignancy were not identified. 7. Out of bed for all meals. Physical/occupational therapy following. 8. GI and DVT prophylaxis. 9. Medical management recommendations per primary care service. 10. Discontinue Benadryl as the patient isn't following asleep during conversations. 11. More recommendations to follow based on patient's clinical course. Time with Patient: Greater than 30
[2019-05-03 11:59] LABS: Glucose,Whole Blood 89 mg/dL (75-99)
--- NOTE | 2019-05-03 13:54 | P.PN ---
Subjective Progress Note Date: 05/03/19 Principal diagnosis: Chronic right-sided pleural effusion with trapped lung. This a 39-year-old white male patient of Dr. 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 Patient was recently hospitalized for loculated right pleural effusion, and interventional radiology placed ultrasound-guided right pleural pigtail catheter, patient received alteplase infusions, and there was serosanguineous drainage draining from the chest tube. However following the placement, and drainage of the pleural fluid the right lung did not reexpand, although the drainage subsided and pigtail catheter was discontinued. He was subsequently discharged and seen by Dr. Ramirez in the outpatient setting. He brought him in today electively for a right thoracotomy, total decortication of the right lung and cryoablation intercostal nerves. Pleural fluids sent for cytology and culture, right pleural peel for pathology and culture. He also placed 3 separate chest tubes. Air leak present mainly from #1. He is seen today in consultation on the selective care unit. He is currently awake and alert in no acute distress. He does have an epidural catheter in place for pain control. He is maintaining O2 saturations in the 90s on 3 L/m per nasal cannula. He is currently hemodynamically stable. The patient is seen today 05/02/2019 in follow-up on the selective care unit. He is currently sitting up in a chair at the bedside. Awake and alert in no acute distress. He's pain is fairly well controlled. He is being followed by Dr. Rahman from anesthesia. Epidural catheter remains in place. 3 chest tubes remain in place. Still a leak from chest tube 1 and 2. All to continuous wall suction. Chest x-ray shows stable findings with postop changes. Left pleural effusion and associated atelectasis. Cardiomegaly. He is working well with the incentive spirometer. Currently 0.750-1000 ML's. Pleural fluid cultures pending. White count 12.2. Hemoglobin 7.6. Creatinine 4.60. Sodium 132. Potassium 5.4. Bicarb 25. He is continued on DuoNeb inhalations, heparin for DVT prophylaxis. The patient is seen today 05/03/2018 in follow-up on the selective care unit. He is currently resting comfortably in bed. Somewhat sedate. Epidural catheter remains in place to pain pump which is being adjusted by anesthesia. He is maintaining O2 saturations in the mid 90s on 2 L/m per nasal cannula. Chest x- ray reveals mild bibasilar infiltrates and small effusions. Right-sided chest tubes remain in place, now to waterseal. He needs increased encouragement regarding the use of incentive spirometer and cough and deep breathing exercis es. Currently pulling only 500 ML's. He's afebrile currently but did have a T- max of 100.1 early this a.m. Pleural fluid cultures are pending. White count 8.8. Hemoglobin 7.0. Sodium 133. Potassium 5.0. Creatinine 4.02. Heparin for DVT prophylaxis. Objective - Vital Signs Vital signs: Vital Signs Temp 98.4 F 05/03/19 11:37 Pulse 92 05/03/19 12:05 Resp 13 05/03/19 11:37 BP 157/87 05/03/19 11:37 Pulse Ox 95 05/03/19 11:37 Intake & Output 05/02/19 05/03/19 05/03/19 18:59 06:59 18:59 Intake Total 832.117 103.158 320 Output Total 3136 Balance -2303.883 103.158 320 Weight 49.215 kg 94.347 kg Intake: Intake, IV Titration 232.117 103.158 100 Amount Ropivacaine 400 mg 86.117 103.158 Hydromorphone (Pf) 1.25 mg In Sodium Chloride 0.9 % 170 ml @ Per Protocol EPIDURAL .Q0M PRN Rx#: [id number] Ropivacaine 400 mg 46 Hydromorphone (Pf) 5 mg In Sodium Chloride 0.9% 170 ml @ Per Protocol EPIDURAL .Q0M PRN Rx#: [id number] Sodium Ferric Gluconat- 100 Sucrose 125 mg In Sodium Chloride 0.9% 100 ml @ 100 mls/hr IVPB DAILY [facility] Rx#:[id number] ceFAZolin 2 gm In Sodium 100 Chloride 0.9% 50 ml @ 100 mls/hr IVPB Q8HR [facility] Rx# :[id number] Oral 600 220 Output: Chest Tube Drainage 136 Chest Tube Right 110 Chest Tube Right Lateral 6 Chest Chest Tube Right Upper 20 Hemodialysis 3000 Other: Voiding Method Urinal # Voids 0 - Exam GENERAL EXAM: Alert, pleasant 39-year-old gentleman, fairly comfortable in no apparent distress. 2 L nasal cannula. HEAD: Normocephalic. EYES: Normal reaction of pupils, equal size. NOSE: Clear with pink turbinates. THROAT: No erythema or exudates. NECK: No masses, no JVD. CHEST: 3 chest tubes inserted and the right chest. Currently to waterseal. LUNGS: Equal air entry few scattered rhonchi, crackles in the right lung base, diminished CVS: S1 and S2 normal with no audible murmur, regular rhythm. ABDOMEN: No hepatosplenomegaly, normal bowel sounds, no guarding or rigidity. SPINE: No scoliosis or deformity SKIN: No rashes CENTRAL NERVOUS SYSTEM: No focal deficits, tone is normal in all 4 extremities. EXTREMITIES: Right upper extremity shunt. There is no peripheral edema. No clubbing, no cyanosis. Peripheral pulses are intact. - Labs CBC & Chem 7: 05/03/19 05:29 05/03/19 05:29 Labs: Abnormal Lab Results - Last 24 Hours (Table) 04/29/19 05/02/19 05/02/19 Range/Units 10:39 16:39 21:20 RBC (4.30-5.90) m/uL Hgb (13.0-17.5) gm/dL Hct (39.0-53.0) % RDW (11.5-15.5) % Lymphocytes # (1.0-4.8) k/uL Sodium (137-145) mmol/L Chloride (98-107) mmol/L BUN (9-20) mg/dL Creatinine (0.66-1.25) mg/dL Glucose (74-99) mg/dL POC Glucose (mg/dL) 164 H 253 H (75-99) mg/dL Crossmatch See Detail 05/03/19 05/03/19 05/03/19 Range/Units 05:29 05:29 06:38 RBC 2.55 L (4.30-5.90) m/uL Hgb 7.0 L (13.0-17.5) gm/dL Hct 22.4 L (39.0-53.0) % RDW 18.4 H (11.5-15.5) % Lymphocytes # 0.7 L (1.0-4.8) k/uL Sodium 133 L (137-145) mmol/L Chloride 92 L (98-107) mmol/L BUN 35 H (9-20) mg/dL Creatinine 4.02 H (0.66-1.25) mg/dL Glucose 115 H (74-99) mg/dL POC Glucose (mg/dL) 116 H (75-99) mg/dL Crossmatch Assessment and Plan Assessment: Impression: #1 Chronic right-sided pleural effusion with trapped lung, status post right thoracotomy, total decortication of the right lung, cryoablation intercostal nurse. Fluid for cytology and cultures pending, right pleural peel for pathology and culture pending. Chest tubes in place. Placed to waterseal today. #2 Previous admission for right pleural effusion, loculated, status post thoracentesis and pigtail placement without significant improvement. #3 Acute hypoxic respiratory failure secondary to above. #4 Hypertension #5 Hyperlipidemia #6 History of type 1 diabetes mellitus with previous history of DKA, diabetic retinopathy and neuropathy #7 Peripheral vascular disease with history of diabetic ulcers and amputations of digits on the left foot #8 End-stage renal disease on hemodialysis #9 History of GI bleeding #10 GERD/reflux Plan: The patient was seen and evaluated by Dr. Tarango. Chest x-ray, labs reviewed. Chest tubes in place. He needs increased encouragement to utilize the incentive spirometer and cough and deep breathing exercises. Increase his activity as tolerated. We'll continue to follow and make further recommendations based on his clinical status. I, the cosigning physician, performed a history & physical examination of the patient. Lungs sounds scattered rhonchi, crackles in the right base. Maintaining good O2 saturations in the 90s on 2 L/m per nasal cannula. I discussed the assessment and plan of care with my nurse practitioner, Alisha Hodges. I attest to the above note as dictated by her.
[2019-05-03 17:26] LABS: Glucose,Whole Blood 244 mg/dL (75-99)
[2019-05-03 20:32] LABS: Glucose,Whole Blood 254 mg/dL (75-99)
[2019-05-03] MEDS: PANTOPRAZOLE 40 MG TABLET PO SCH (20:46)
[2019-05-03] MEDS: amLODIPine 10 MG TAB PO SCH (20:46)
[2019-05-03] MEDS: PRAVASTATIN SODIUM 40 MG TAB PO SCH (20:46)
[2019-05-03] MEDS: INSULIN DETEMIR (LEVEMIR) 100 UNIT/ML SYR SQ SCH (20:47)
[2019-05-03] MEDS: MULTIVITAMINS, THERA 1 EACH TAB PO SCH (20:47)
[2019-05-03] MEDS: ARIPiprazole 10 MG TAB PO SCH (20:48)
[2019-05-03] MEDS: DESVENLAFAXINE SUCCINATE 50 MG TAB.ER.24H PO SCH (20:48)
--- NOTE | 2019-05-03 20:58 | PN ---
PROGRESS NOTE DATE OF SERVICE: 05/03/2019. This 39-year-old gentleman who was admitted with features of loculated pleural effusion on the right side, underwent decortication. Chest tubes inserted. The patient is also on epidural . The patient is complaining of severe pain. Patient had an episode of hypoxia. The patient also had renal failure. Creatinine is 4.02. Abdomen is mildly distended. No chest pain. No palpitations. No fever. No abdominal pain. Diarrhea . Hemoglobin 7. PAST MEDICAL HISTORY: Reviewed. REVIEW OF SYSTEMS: CARDIOVASCULAR SYSTEM: No angina or palpitations. RESPIRATORY: As mentioned earlier. GI as mentioned earlier. no dysuria. NERVOUS SYSTEM: No numbness or weakness. CURRENT MEDICATIONS ARE: Reviewed and include: 1. Tylenol 1000 mg q.6h p.r.n. 2. DuoNeb q.i.d. and p.r.n. 3. Norvasc 10 mg q.h.s. 4. Abilify 10 mg q.h.s. 5. Dulcolax 10 mg daily. 6. PhosLo. 7. Coreg. 8. Catapres 0.1 p.o. t.i.d. 9. Iron sulfate. 10.Pristiq ER. 11.Bentyl. 12.Heparin. 13.Apresoline. 14.Levemir 30 units subcu q.h.s. 15.Multivitamins one daily. 16.Narcan. 17.Zofran. 18.Protonix. 19.Pravachol. 20.Doses are reviewed. 21.Zanaflex. PHYSICAL EXAMINATION: Patient is alert, oriented x3. Pulse 82, blood pressure 151/83, respirations 16, temperature 97.8, pulse ox 98% on 2 L. HEENT: Conjunctivae normal. NECK: No JVD. CARDIOVASCULAR: S1, S2 muffled. RESPIRATORY: Breath sounds diminished in the bases. A few scattered rhonchi and crackles. Expiratory wheezing also present. ABDOMEN: Chest tube present on the right side. Abdomen soft, nontender. No mass palpable. Mild diffuse distention. No ascites. LEGS: No edema. No swelling. NERVOUS SYSTEM: Higher functions as mentioned earlier. Moves all 4 limbs. No focal motor or sensory deficits. LYMPHATICS: No lymph nodes palpable in the neck, axillae or groin. SKIN: No ulcers, rashes or bleeding. JOINTS: No active deforming arthropathy. LABS: WBC 8.8, hemoglobin 7, sodium 133, potassium 5, creatinine is 4.02. Accu-Cheks noted. ASSESSMENT: 1. Status post right thoracotomy as well as decortication of the right lung for right chronic loculated pleural effusion with trapped lung. 2. Chronic renal failure on hemodialysis. 3. Diabetes type 2. 4. Acute hypoxic respiratory failure secondary to possibly atelectasis. 5. Hyponatremia. 6. Anemia, normocytic anemia of chronic disease. 7. History of asthma, chronic, intermittent. 8. Gastroesophageal reflux disease. 9. History of gastrointestinal bleed. 10.Hypertension. 11.Hyperlipidemia. 12.History of pneumonia. 13.History of loculated pleural effusion and pigtail catheter history on the right. 14.History of hiatal hernia. 15.History of peptic ulcer disease. 16.History of cardiac tamponade history. 17.History of osteomyelitis of the left foot. 18.History of Methicillin-resistant Staphylococcus aureus. 19.History of QUILL REAMER shunt. 20.History of depression. RECOMMENDATIONS AND DISCUSSION: Recommend to continue current medication, continue to monitor and symptomatic treatment. Otherwise, at this time, I recommend continue with current medications. Continue with fluid and electrolyte balance. The most recent chest x-ray which was done today, reviewed personally by me showed mild bibasilar atelectasis, possibly. We will continue to monitor. Continue the hemodialysis. The patient also might require transfusion if the hemoglobin continues to drop with symptomatic. Otherwise, continue to monitor. Closely follow with multiple consultants. Prognosis guarded. Further recommendations to follow. MMODL / IJN: [id number] / MTDD
[2019-05-04] MEDS: ACETAMINOPHEN TAB 500 MG TAB PO PRN ×2 (01:01→12:53)
[2019-05-04 05:07] LABS: Glucose,Whole Blood 35 mg/dL (75-99)
[2019-05-04 05:09] LABS: Glucose,Whole Blood 37 mg/dL (75-99)
[2019-05-04] MEDS: CARVEDILOL 6.25 MG TAB PO SCH ×2 (05:18→17:36)
[2019-05-04 05:21] LABS: Glucose,Whole Blood 36 mg/dL (75-99)
[2019-05-04] MEDS: hydrALAZINE HCL 50 MG TAB PO SCH ×3 (05:21→21:13)
[2019-05-04] MEDS ORDERED: DEXTROSE 10 % IN WATER 250 ML IV ONE (05:24)
[2019-05-04 05:46] LABS: Glucose,Whole Blood 115 mg/dL (75-99)
[2019-05-04 06:25] LABS: Glucose,Whole Blood 202 mg/dL (75-99)
--- NOTE | 2019-05-04 07:02 | XR ---
EXAMINATION TYPE: XR chest 1V portable DATE OF EXAM: 05/04/2019 CLINICAL HISTORY: Difficulty breathing progress study. Multiple chest tubes. Post open cardiac surge ry. TECHNIQUE: Single AP portable frontal view of the chest is obtained. COMPARISON: Chest x-ray from one day earlier and older studies. FINDINGS: There are 2 right-sided chest tubes redemonstrated. Overlying EKG leads are again seen. Th ere is persistent cardiomegaly with small bilateral pleural effusions and central vascular congestion . No pneumothorax is evident bilaterally. Osseous structures are intact. IMPRESSION: Overall stable findings, no measurable pneumothorax bilaterally. 2 right-sided chest tu bes redemonstrated. Persistent cardiomegaly with central vascular congestion and small bilateral pleu ral effusions with associated bilateral lower lung atelectasis and/or infiltrate are all redemonstrat ed.
[2019-05-04] MEDS: CALCIUM ACETATE 667 MG CAP PO SCH ×3 (07:19→17:36)
[2019-05-04] MEDS: INSULIN ASPART (NovoLOG) 100 UNIT/ML VIAL SQ SCH ×4 (07:20→21:14)
[2019-05-04 07:22] LABS: Anisocytosis Slight; Basophils # (A) 0.1 k/uL (0-0.2); Basophils % (A) 1 %; Eosinophils # (A) 0.4 k/uL (0-0.7); Eosinophils % (A) 5 %; HCT 28.6 % (39.0-53.0); HGB 7.2 gm/dL (13.0-17.5); Hypochromasia Marked; Lymphocytes # (A) 1.1 k/uL (1.0-4.8); Lymphocytes % (A) 12 %; MCH 27.6 pg (25.0-35.0); MCHC 25.1 g/dL (31.0-37.0); Macrocytosis Marked; Mean Platelet Volume 8.7; Monocytes # (A) 0.7 k/uL (0-1.0); Monocytes % (A) 8 %; Neutrophils # (A) 6.6 k/uL (1.3-7.7); Neutrophils % (A) 73 %; Platelet Count 275 k/uL (150-450); RBC 2.61 m/uL (4.30-5.90); RDW 17.3 % (11.5-15.5); WBC 9.1 k/uL (3.8-10.6)
[2019-05-04 08:09] LABS: Calcium 8.5 mg/dL (8.4-10.2); Potassium 4.8 mmol/L (3.5-5.1)
[2019-05-04] MEDS: HEPARIN SODIUM,PORCINE 5,000 UNIT/ML 1 ML VIAL SQ SCH ×2 (08:16→16:01)
[2019-05-04] MEDS: cloNIDine HCL 0.1 MG TAB PO SCH ×3 (08:18→21:12)
[2019-05-04] MEDS: IPRATROPIUM-ALBUTEROL 3 ML NEB IH SCH ×4 (08:27→20:07)
[2019-05-04 09:30] LABS: Poikilocytosis (M) Present
--- NOTE | 2019-05-04 09:32 | P.PN ---
Progress Note - Text Progress Note Date: 05/04/19 Anesthesia POD 3. Status Post right pulmonary decortication under general end otracheal anesthesia with an epidrual catheter placed at T8 for post surgical pain releif. VAS 4/10, Lower extremity strength (4/4). Awake and alert on today's exam. Site looks good, clean, dry. Pump continues to deliver at 5cc/hr. solution per EMR. Patient reports pain is better than it was yesterday, but still has some pain. We'll likely discontinue the catheter at the end of today.
[2019-05-04] MEDS: SODIUM FERRIC GLUCONAT-SUCROSE 125 MG in SODIUM CHLORIDE 0.9% 100 ML IVPB SCH (09:44)
--- NOTE | 2019-05-04 10:31 | P.PN ---
Subjective Patient is seen in follow-up for end-stage renal disease. He is maintained on hemodialysis on a Sunday schedule. No chest pain. Denies shortness of breath. Vital signs are stable. General: The patient appeared well nourished and normally developed. HEENT: Head exam is unremarkable. Neck is without jugular venous distension. LUNGS: Lungs are clear to auscultation and percussion. Breath sounds decreased. Chest tubes noted. HEART: Rate and Rhythm are regular. First and second heart sounds normal. No murmurs, rubs or gallops. ABDOMEN: Abdominal exam reveals normal bowel sounds. Non-tender and non- distended. No evidence of peritonitis. EXTREMITITES: No clubbing, cyanosis, or edema. Objective - Vital Signs Vital signs: Vital Signs Temp 98.4 F 05/04/19 04:00 Pulse 92 05/04/19 08:50 Resp 16 05/04/19 04:00 BP 159/79 05/04/19 04:00 Pulse Ox 97 05/04/19 04:00 Intake & Output 05/03/19 05/04/19 05/04/19 18:59 06:59 18:59 Intake Total 557.750 60.817 Output Total 0 1 Balance 557.750 60.817 -1 Weight 93.894 kg Intake: Intake, IV Titration 147.750 60.817 Amount Ropivacaine 400 mg 47.750 60.817 Hydromorphone (Pf) 1.25 mg In Sodium Chloride 0.9 % 170 ml @ Per Protocol EPIDURAL .Q0M PRN Rx#: [id number] Sodium Ferric Gluconat- 100 Sucrose 125 mg In Sodium Chloride 0.9% 100 ml @ 100 mls/hr IVPB DAILY [facility] Rx#:[id number] Oral 410 Output: Urine 0 Urine/Stool Mix 1 Other: Voiding Method Urinal Urinal # Voids 0 - Labs CBC & Chem 7: 05/04/19 05:24 05/04/19 07:38 Labs: Abnormal Lab Results - Last 24 Hours (Table) 05/03/19 05/03/19 05/04/19 Range/Units 17:25 20:31 05:05 RBC (4.30-5.90) m/uL Hgb (13.0-17.5) gm/dL Hct (39.0-53.0) % MCV (80.0-100.0) fL MCHC (31.0-37.0) g/dL RDW (11.5-15.5) % Macrocytosis Sodium (137-145) mmol/L Chloride (98-107) mmol/L BUN (9-20) mg/dL Creatinine (0.66-1.25) mg/dL Glucose (74-99) mg/dL POC Glucose (mg/dL) 244 H 254 H 35 L (75-99) mg/dL 05/04/19 05/04/19 05/04/19 Range/Units 05:07 05:20 05:24 RBC 2.61 L (4.30-5.90) m/uL Hgb 7.2 L (13.0-17.5) gm/dL Hct 28.6 L (39.0-53.0) % MCV 109.9 H D (80.0-100.0) fL MCHC 25.1 L (31.0-37.0) g/dL RDW 17.3 H (11.5-15.5) % Macrocytosis Marked A Sodium (137-145) mmol/L Chloride (98-107) mmol/L BUN (9-20) mg/dL Creatinine (0.66-1.25) mg/dL Glucose (74-99) mg/dL POC Glucose (mg/dL) 37 L 36 L (75-99) mg/dL 05/04/19 05/04/19 05/04/19 Range/Units 05:34 06:23 07:38 RBC (4.30-5.90) m/uL Hgb (13.0-17.5) gm/dL Hct (39.0-53.0) % MCV (80.0-100.0) fL MCHC (31.0-37.0) g/dL RDW (11.5-15.5) % Macrocytosis Sodium 133 L (137-145) mmol/L Chloride 95 L (98-107) mmol/L BUN 53 H (9-20) mg/dL Creatinine 5.78 H (0.66-1.25) mg/dL Glucose 128 H (74-99) mg/dL POC Glucose (mg/dL) 115 H 202 H (75-99) mg/dL Assessment and Plan Plan: Assessment: 1. End-stage renal disease maintained on hemodialysis on a Sunday schedule via right upper extremity AV fistula. 2. Chronic right-sided loculated effusion status post thoracotomy and decortication of the right lung on May 01. 3. Hypertension with chronic kidney disease. Stable. 4. Anemia of chronic kidney disease maintained on Aranesp. Iron deficiency noted. 5. Chronic kidney disease mineral bone disease maintained on PhosLo. 6. Insulin-dependent diabetes mellitus. 7. Hyponatremia secondary to chronic kidney disease. Better. Plan: Hemodialysis on Sunday. IV iron 3 doses. Third dose today. Monitor hemoglobin.
[2019-05-04 10:49] LABS: Anisocytosis Slight; Basophils % (A) 0 %; Eosinophils # (A) 0.4 k/uL (0-0.7); Eosinophils % (A) 4 %; HCT 24.3 % (39.0-53.0); HGB 7.1 gm/dL (13.0-17.5); Hypochromasia Slight; Lymphocytes # (A) 0.6 k/uL (1.0-4.8); Lymphocytes % (A) 6 %; MCH 25.5 pg (25.0-35.0); MCHC 29.3 g/dL (31.0-37.0); Mean Platelet Volume 7.4; Monocytes # (A) 0.5 k/uL (0-1.0); Monocytes % (A) 5 %; Neutrophils # (A) 7.8 k/uL (1.3-7.7); Neutrophils % (A) 83 %; Platelet Count 243 k/uL (150-450); RBC 2.79 m/uL (4.30-5.90); RDW 18.6 % (11.5-15.5); WBC 9.4 k/uL (3.8-10.6)
[2019-05-04 11:05] LABS: MCV 109.9 fL (80.0-100.0)
--- NOTE | 2019-05-04 11:10 | P.PN ---
Subjective Progress Note Date: 05/04/19 Principal diagnosis: Chronic right-sided pleural effusion with trapped lung This a 39-year-old white male patient of Dr. 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 Patient was recently hospitalized for loculated right pleural effusion, and interventional radiology placed ultrasound-guided right pleural pigtail catheter, patient received alteplase infusions, and there was serosanguineous drainage draining from the chest tube. However following the placement, and drainage of the pleural fluid the right lung did not reexpand, although the drainage subsided and pigtail catheter was discontinued. He was subsequently discharged and seen by Dr. Ramirez in the outpatient setting. He brought him in today electively for a right thoracotomy, total decortication of the right lung and cryoablation intercostal nerves. Pleural fluids sent for cytology and culture, right pleural peel for pathology and culture. He also placed 3 separate chest tubes. Air leak present mainly from #1. He is seen today in consultation on the selective care unit. He is currently awake and alert in no acute distress. He does have an epidural catheter in place for pain control. He is maintaining O2 saturations in the 90s on 3 L/m per nasal cannula. He is currently hemodynamically stable. The patient is seen today 05/02/2019 in follow-up on the selective care unit. He is currently sitting up in a chair at the bedside. Awake and alert in no acute distress. He's pain is fairly well controlled. He is being followed by Dr. Rahman from anesthesia. Epidural catheter remains in place. 3 chest tubes remain in place. Still a leak from chest tube 1 and 2. All to continuous wall suction. Chest x-ray shows stable findings with postop changes. Left pleural effusion and associated atelectasis. Cardiomegaly. He is working well with the incentive spirometer. Currently 0.750-1000 ML's. Pleural fluid cultures pending. White count 12.2. Hemoglobin 7.6. Creatinine 4.60. Sodium 132. Potassium 5.4. Bicarb 25. He is continued on DuoNeb inhalations, heparin for DVT prophylaxis. The patient is seen today 05/03/2018 in follow-up on the selective care unit. He is currently resting comfortably in bed. Somewhat sedate. Epidural catheter remains in place to pain pump which is being adjusted by anesthesia. He is maintaining O2 saturations in the mid 90s on 2 L/m per nasal cannula. Chest x- ray reveals mild bibasilar infiltrates and small effusions. Right-sided chest tubes remain in place, now to waterseal. He needs increased encouragement regarding the use of incentive spirometer and cough and deep breathing exercises . Currently pulling only 500 ML's. He's afebrile currently but did have a T-max of 100.1 early this a.m. Pleural fluid cultures are pending. White count 8.8. Hemoglobin 7.0. Sodium 133. Potassium 5.0. Creatinine 4.02. Heparin for DVT prophylaxis. On 05/04/2019 patient seen in follow-up on selective care unit, drowsy today, but responds appropriately, states still has pain at the operative site, he has suffered is 750, requires a lot of encouragement and coaching to deep breathe and cough, lung sounds are diminished over left lower lobe, and diffuse crackles on the right. Right-sided chest tubes remain in place, to waterseal, with no evidence of air leak. Small amount of degenerative the chest tubes, CT surgery following, and possibly considering removing 1 or 2 of the chest tubes. Today's chest x-ray has been reviewed showing stable findings, no pneumothorax, persistent cardiomegaly with central vascular congestion and small bilateral pleural effusions with associated bilateral lower lung atelectasis. Patient is due for his hemodialysis treatment tomorrow. Today's labs reviewed, showing sodium of 133, potassium is 4.8, chloride is 95, CO2 is 26, BUN is 53, creatinine is 5.78. Epidural catheter is in, currently infusing at 5 ML per hour, anesthesia services following Objective - Vital Signs Vital signs: Vital Signs Temp 98.4 F 05/04/19 04:00 Pulse 92 05/04/19 08:50 Resp 16 05/04/19 04:00 BP 159/79 05/04/19 04:00 Pulse Ox 97 05/04/19 04:00 Intake & Output 05/03/19 05/04/19 05/04/19 18:59 06:59 18:59 Intake Total 557.750 60.817 118 Output Total 0 1 Balance 557.750 60.817 117 Weight 93.894 kg Intake: Intake, IV Titration 147.750 60.817 Amount Ropivacaine 400 mg 47.750 60.817 Hydromorphone (Pf) 1.25 mg In Sodium Chloride 0.9 % 170 ml @ Per Protocol EPIDURAL .Q0M PRN Rx#: [id number] Sodium Ferric Gluconat- 100 Sucrose 125 mg In Sodium Chloride 0.9% 100 ml @ 100 mls/hr IVPB DAILY KARLEY Rx#:[id number] Oral 410 118 Output: Urine 0 Urine/Stool Mix 1 Other: Voiding Method Urinal Urinal # Voids 0 - Exam GENERAL EXAM: Drowsy, 39-year-old white male, on 2 L of oxygen, with a pulse ox of 97% comfortable in no apparent distress. HEAD: Normocephalic/atraumatic. EYES: Normal reaction of pupils, equal size. Conjunctiva pink, sclera white. NOSE: Clear with pink turbinates. THROAT: No erythema or exudates. NECK: No masses, no JVD, no thyroid enlargement, no adenopathy. CHEST: No chest wall deformity. Symmetrical expansion. 3 chest tubes are in place in the right to waterseal, with no evidence of air leak LUNGS: Equal air entry with diminished breath sounds on the left lower lobe, and diffuse crackles on the right CVS: Regular rate and rhythm, normal S1 and S2, no gallops, no murmurs, no rubs ABDOMEN: Soft, nontender. No hepatosplenomegaly, normal bowel sounds, no guarding or rigidity. EXTREMITIES: No clubbing, no edema, no cyanosis, 2+ pulses and upper and lower extremities. MUSCULOSKELETAL: Muscle strength and tone normal. SPINE: No scoliosis or deformity, epidural catheter is present in thoracic spine, site clean dry and intact, epidural infusing at 5 ML per hour SKIN: No rashes CENTRAL NERVOUS SYSTEM: Lethargic but arousable and oriented -3. No focal deficits, tone is normal in all 4 extremities. - Labs CBC & Chem 7: 05/04/19 05:24 05/04/19 07:38 Labs: Abnormal Lab Results - Last 24 Hours (Table) 05/03/19 05/03/1919 Range/Units 17:25 20:31 05:05 RBC (4.30-5.90) m/uL Hgb (13.0-17.5) gm/dL Hct (39.0-53.0) % MCV (80.0-100.0) fL MCHC (31.0-37.0) g/dL RDW (11.5-15.5) % Macrocytosis Sodium (137-145) mmol/L Chloride (98-107) mmol/L BUN (9-20) mg/dL Creatinine (0.66-1.25) mg/dL Glucose (74-99) mg/dL POC Glucose (mg/dL) 244 H 254 H 35 L (75-99) mg/dL 05/04/19 05/04/19 05/04/19 Range/Units 05:07 05:20 05:24 RBC 2.61 L (4.30-5.90) m/uL Hgb 7.2 L (13.0-17.5) gm/dL Hct 28.6 L (39.0-53.0) % MCV 109.9 H D (80.0-100.0) fL MCHC 25.1 L (31.0-37.0) g/dL RDW 17.3 H (11.5-15.5) % Macrocytosis Marked A Sodium (137-145) mmol/L Chloride (98-107) mmol/L BUN (9-20) mg/dL Creatinine (0.66-1.25) mg/dL Glucose (74-99) mg/dL POC Glucose (mg/dL) 37 L 36 L (75-99) mg/dL 05/04/19 05/04/19 05/04/19 Range/Units 05:34 06:23 07:38 RBC (4.30-5.90) m/uL Hgb (13.0-17.5) gm/dL Hct (39.0-53.0) % MCV (80.0-100.0) fL MCHC (31.0-37.0) g/dL RDW (11.5-15.5) % Macrocytosis Sodium 133 L (137-145) mmol/L Chloride 95 L (98-107) mmol/L BUN 53 H (9-20) mg/dL Creatinine 5.78 H (0.66-1.25) mg/dL Glucose 128 H (74-99) mg/dL POC Glucose (mg/dL) 115 H 202 H (75-99) mg/dL Assessment and Plan Plan: Assessment: #1 Chronic right-sided pleural effusion with trapped lung, status post right thoracotomy, total decortication of the right lung, cryoablation intercostal nurse. Fluid for cytology was negative and cultures pending, right pleural peel for pathology was negative and culture pending. Chest tubes in place. Placed to waterseal today. #2 Previous admission for right pleural effusion, loculated, status post thoracentesis and pigtail placement without significant improvement. #3 Acute hypoxic respiratory failure secondary to above. #4 Hypertension #5 Hyperlipidemia #6 History of type 1 diabetes mellitus with previous history of DKA, diabetic retinopathy and neuropathy #7 Peripheral vascular disease with history of diabetic ulcers and amputations of digits on the left foot #8 End-stage renal disease on hemodialysis #9 History of GI bleeding #10 GERD/reflux Plan: Cytology and pleural tissue biopsy results have been noted, negative for malignancy, continue encouraging deep breathing and coughing, increase activity as tolerated, preliminary pleural fluid cultures are negative, will await final culture. Continue nebulized bronchodilators. Anticipate hemodialysis treatment tomorrow, we'll continue to follow I performed a history & physical examination of the patient and discussed their management with my nurse practitioner, Lara Reddy. I reviewed the nurse practitioner's note and agree with the documented findings and plan of care. Lung sounds are positive for diminished breath sounds at the left base, and scat tered crackles on the right. The findings and the impression was discussed with the patient. I attest to the documentation by the nurse practitioner. Time with Patient: Less than 30
[2019-05-04 12:18] LABS: Glucose,Whole Blood 192 mg/dL (75-99)
--- NOTE | 2019-05-04 12:37 | P.PN ---
Subjective Progress Note Date: 05/04/19 Principal diagnosis: Right chronic loculated pleural effusion with trapped lung, history of end-stage renal disease with hemodialysis Sunday, Sunday and Fridays, uncontrolled di abetes mellitus, diabetic neuropathy, hypertension, hyperlipidemia, history of GI bleed, gastroesophageal reflux disease, pericardial effusion with tamponade status post pericardial window and bilateral pleural effusion status post bilateral thoracentesis. POD #3 right thoracotomy and total decortication right lung, cryoablation intercostal nerve. Postoperative acute blood loss anemia, expected The patient is laying in bed on the 3 S. cardiac stepdown unit. The patient is complaining of surgical type pain to his chest tube insertion sites, denies any complaints of shortness of breath. Oxygen saturation is 97% on room air. He is achieving 750 mL on his incentive spirometry which is improved from yesterday. Epidural is in place and infusing at 5 mL per hour site of the epidural is clean and intact. 3 right pleural chest tubes remain in place to low continuous wall suction -20 cm H2O. no airleak is present. He remains afebrile. Reinforced with the patient the importance of ambulating and using his incentive spirometry. He is afebrile the last 24 hours. Objective - Vital Signs Vital signs: Vital Signs Temp 98.4 F 05/04/19 04:00 Pulse 77 05/04/19 12:00 Resp 16 05/04/19 04:00 BP 159/79 05/04/19 04:00 Pulse Ox 97 05/04/19 04:00 Intake & Output 05/03/19 05/04/19 05/04/19 18:59 06:59 18:59 Intake Total 557.750 60.817 118 Output Total 0 1 Balance 557.750 60.817 117 Weight 93.894 kg Intake: Intake, IV Titration 147.750 60.817 Amount Ropivacaine 400 mg 47.750 60.817 Hydromorphone (Pf) 1.25 mg In Sodium Chloride 0.9 % 170 ml @ Per Protocol EPIDURAL .Q0M PRN Rx#: [id number] Sodium Ferric Gluconat- 100 Sucrose 125 mg In Sodium Chloride 0.9% 100 ml @ 100 mls/hr IVPB DAILY KARLEY Rx#:[id number] Oral 410 118 Output: Urine 0 Urine/Stool Mix 1 Other: Voiding Method Urinal Urinal # Voids 0 - Constitutional General appearance: Present: cooperative, no acute distress, obese - Respiratory Details: Lung sounds with few scattered crackles and rhonchi to his right lobes, essentially clear to his left lobes with few scattered crackles to his left l ower lobe. Respirations are symmetrical and nonlabored. Oxygen saturation are 97% on room air. Achieving 750 mL on his incentive spirometry. Right pleural chest tubes in place to low continuous wall suction -20 cm H2O. No air leak is present. Chest tubes are draining thin serosanguineous drainage with his posterior chest tube draining 40 mL output in the last 24 hours, middle right pleural chest tube with 0 mL output in the last 24 hours, and right anterior pleural chest tube with 0 mL output in the last 24 hours. - Cardiovascular Details: Regular rhythm and rate. S1 and S2 present, negative for S3, gallop or murmur. Remote telemetry showing normal sinus rhythm heart rate 77. No edema present. Sequential compression devices in place to his bilateral lower extremities. - Gastrointestinal Gastrointestinal Comment(s): Abdomen soft, nontender and nondistended. Active bowel sounds present in all 4 abdominal quadrants. No guarding or rigidity. No organomegaly. - Genitourinary Genitourinary Comment(s): Hemodialysis schedule is Sunday and Sunday. Right arm AV fistula with positive thrill and bruit. - Integumentary Integumentary Comment(s): Skin is warm and dry. No clubbing or cyanosis is present. No rash or abnormal pigmentation is present. After dural insertion site is clean, dry and intact. Right thoracotomy incision is clean, dry and intact. No drainage or redness at present. Gauze dressing is clean and dry. - Neurologic Neurologic: Present: CNII-XII intact - Musculoskeletal Musculoskeletal: Present: gait normal, generalized weakness, strength equal bilaterally - Psychiatric Psychiatric Comment(s): Flat affect Psychiatric: Present: A&O x's 3, intact judgment & insight - Allied health notes Allied health notes reviewed: nursing - Labs CBC & Chem 7: 05/04/19 10:37 05/04/19 07:38 Labs: Abnormal Lab Results - Last 24 Hours (Table) 05/03/19 05/03/19 05/04/19 Range/Units 17:25 20:31 05:05 RBC (4.30-5.90) m/uL Hgb (13.0-17.5) gm/dL Hct (39.0-53.0) % MCV (80.0-100.0) fL MCHC (31.0-37.0) g/dL RDW (11.5-15.5) % Neutrophils # (1.3-7.7) k/uL Lymphocytes # (1.0-4.8) k/uL Macrocytosis Sodium (137-145) mmol/L Chloride (98-107) mmol/L BUN (9-20) mg/dL Creatinine (0.66-1.25) mg/dL Glucose (74-99) mg/dL POC Glucose (mg/dL) 244 H 254 H 35 L (75-99) mg/dL 05/04/19 05/04/19 05/04/19 Range/Units 05:07 05:20 05:24 RBC 2.61 L (4.30-5.90) m/uL Hgb 7.2 L (13.0-17.5) gm/dL Hct 28.6 L (39.0-53.0) % MCV 109.9 H D (80.0-100.0) fL MCHC 25.1 L (31.0-37.0) g/dL RDW 17.3 H (11.5-15.5) % Neutrophils # (1.3-7.7) k/uL Lymphocytes # (1.0-4.8) k/uL Macrocytosis Marked A Sodium (137-145) mmol/L Chloride (98-107) mmol/L BUN (9-20) mg/dL Creatinine (0.66-1.25) mg/dL Glucose (74-99) mg/dL POC Glucose (mg/dL) 37 L 36 L (75-99) mg/dL 05/04/19 05/04/19 05/04/19 Range/Units 05:34 06:23 07:38 RBC (4.30-5.90) m/uL Hgb (13.0-17.5) gm/dL Hct (39.0-53.0) % MCV (80.0-100.0) fL MCHC (31.0-37.0) g/dL RDW (11.5-15.5) % Neutrophils # (1.3-7.7) k/uL Lymphocytes # (1.0-4.8) k/uL Macrocytosis Sodium 133 L (137-145) mmol/L Chloride 95 L (98-107) mmol/L BUN 53 H (9-20) mg/dL Creatinine 5.78 H (0.66-1.25) mg/dL Glucose 128 H (74-99) mg/dL POC Glucose (mg/dL) 115 H 202 H (75-99) mg/dL 05/04/19 05/04/19 Range/Units 10:37 12:17 RBC 2.79 L (4.30-5.90) m/uL Hgb 7.1 L (13.0-17.5) gm/dL Hct 24.3 L (39.0-53.0) % MCV (80.0-100.0) fL MCHC 29.3 L (31.0-37.0) g/dL RDW 18.6 H (11.5-15.5) % Neutrophils # 7.8 H (1.3-7.7) k/uL Lymphocytes # 0.6 L (1.0-4.8) k/uL Macrocytosis Sodium (137-145) mmol/L Chloride (98-107) mmol/L BUN (9-20) mg/dL Creatinine (0.66-1.25) mg/dL Glucose (74-99) mg/dL POC Glucose (mg/dL) 192 H (75-99) mg/dL - Imaging and Cardiology Chest x-ray: report reviewed, image reviewed Assessment and Plan Assessment: 1. Right chronic loculated pleural effusion with trapped lung, status post right thoracotomy, total decortication right lung, cryoablation intercostal nerve 2. End-stage renal disease, on hemodialysis Sunday, Sunday and Fridays 3. Hypertension 4. Hyperlipidemia 5. Uncontrolled diabetes mellitus, diabetic neuropathy 6. History of GI bleed 7. GERD Plan: 1. Remove both anterior chest tubes and keep the posterior chest tube in place to water seal. 2. Hemodialysis management per nephrology's recommendations. Avoid nephrotoxic agents. 3. Epidural management per anesthesia. 4. Encourage use of his incentive spirometry every hour while awake. 5. Bronchodilator management per pulmonary medicine. 6. Right lung decortication pathology showed fibromembranous pleural scar with fibrin disposition consistent with reaction to chronic pneumothorax, cytology results showed mixed inflammation and reactive mesothelial cells. Cells cytologically diagnostic of malignancy were not identified. 7. Out of bed for all meals. Physical/occupational therapy following. Encourage ambulating in the viera. 8. GI and DVT prophylaxis. 9. Medical management recommendations per primary care service. 10. Discontinue epidural per anesthesia 11. Hydrocodone 5-325 mg 1 by mouth every 6 hours when necessary pain initiated and per nephrology okay to start Toradol 15 mg IV every 6 hours when necessary pain. 12. More recommendations follow based on patient's clinical course. Time with Patient: Greater than 30
[2019-05-04] MEDS: HYDROcodone/APAP 5-325MG 1 EACH TAB PO PRN ×2 (12:54→18:57)
[2019-05-04] MEDS: KETOROLAC 30 MG/ML 1 ML VIAL IVP PRN ×2 (14:12→21:13)
[2019-05-04 17:23] LABS: Glucose,Whole Blood 327 mg/dL (75-99)
[2019-05-04 20:14] LABS: Glucose,Whole Blood 367 mg/dL (75-99)
[2019-05-04] MEDS: PRAVASTATIN SODIUM 40 MG TAB PO SCH (21:12)
[2019-05-04] MEDS: DESVENLAFAXINE SUCCINATE 50 MG TAB.ER.24H PO SCH (21:12)
[2019-05-04] MEDS: MULTIVITAMINS, THERA 1 EACH TAB PO SCH (21:13)
[2019-05-04] MEDS: amLODIPine 10 MG TAB PO SCH (21:13)
[2019-05-04] MEDS: INSULIN DETEMIR (LEVEMIR) 100 UNIT/ML SYR SQ SCH (21:13)
[2019-05-04] MEDS: PANTOPRAZOLE 40 MG TABLET PO SCH (21:13)
[2019-05-04] MEDS: ARIPiprazole 10 MG TAB PO SCH (21:13)
--- NOTE | 2019-05-05 00:06 | PN ---
PROGRESS NOTE DATE OF SERVICE: 05/04/2019. This 39-year-old gentleman who was admitted with features of loculated pleural effusion on the right side, underwent decortication. No chest pain. No palpitation. No fever. EXAM: Alert and oriented x3. Pulse is 79. Blood pressure 141/82, respiration 18, temperature 98.1. Pulse ox 100 percent on 3 L. HEENT is conjunctivae normal. NECK: No jugular venous distention. CARDIOVASCULAR: S1, S2 muffled. RESPIRATIONS; Breath sounds diminished in the bases. A few scattered rhonchi and crackles. ABDOMEN is soft, nontender. LEGS are no edema. No swelling. CENTRAL NERVOUS SYSTEM: No focal deficits. LAB STUDIES: WBC 9.2, hemoglobin 7.1. Sodium 133. ASSESSMENT: 1. Status post right thoracotomy as well as decortication of the right lung for right chronic loculated pleural effusion with trapped lung. 2. Chronic renal failure on hemodialysis. 3. Diabetes type 2. 4. Acute hypoxic respiratory failure secondary to possibly atelectasis. 5. Hyponatremia. 6. Anemia, normocytic anemia of chronic disease. 7. History of asthma, chronic, intermittent. 8. Gastroesophageal reflux disease. 9. History of gastrointestinal bleed. 10.Hypertension. 11.Hyperlipidemia. 12.History of pneumonia. 13.History of located pleural effusion with a pigtail catheter history on the right. 14.History of hiatal hernia. 15.History of peptic ulcer disease. 16.History of cardiac tamponade history. 17.History of osteomyelitis of the left foot. 18.History of MRSA. 19.History of PHARMACIST shunt. 20.History of depression. RECOMMENDATIONS AND DISCUSSION: Recommend to continue current medications, management and continue with chest tube drainage. Continue the hemodialysis. Repeat labs. Hemoglobin is 7.1. Prognosis guarded. Further recommendations to follow. MMODL / IJN: [id number] /
[2019-05-05] MEDS: HEPARIN SODIUM,PORCINE 5,000 UNIT/ML 1 ML VIAL SQ SCH ×4 (00:07→23:16)
[2019-05-05] MEDS: ACETAMINOPHEN TAB 500 MG TAB PO PRN (00:35)
[2019-05-05 02:08] LABS: Glucose,Whole Blood 284 mg/dL (75-99)
[2019-05-05] MEDS: HYDROcodone/APAP 5-325MG 1 EACH TAB PO PRN ×4 (03:10→20:51)
[2019-05-05] MEDS: KETOROLAC 30 MG/ML 1 ML VIAL IVP PRN ×4 (04:56→23:14)
[2019-05-05 06:52] LABS: Glucose,Whole Blood 154 mg/dL (75-99)
[2019-05-05] MEDS: INSULIN ASPART (NovoLOG) 100 UNIT/ML VIAL SQ SCH ×4 (06:54→20:50)
[2019-05-05] MEDS: CALCIUM ACETATE 667 MG CAP PO SCH ×3 (06:55→17:13)
[2019-05-05 08:24] LABS: Anisocytosis Slight; HCT 23.8 % (39.0-53.0); HGB 7.5 gm/dL (13.0-17.5); Hypochromasia Slight; MCH 27.4 pg (25.0-35.0); MCHC 31.7 g/dL (31.0-37.0); MCV 86.4 fL (80.0-100.0); Platelet Count 301 k/uL (150-450); RBC 2.76 m/uL (4.30-5.90); RDW 18.4 % (11.5-15.5); WBC 6.7 k/uL (3.8-10.6)
[2019-05-05 08:35] LABS: Calcium 8.7 mg/dL (8.4-10.2); Total Bilirubin 0.4 mg/dL (0.2-1.3); Total Protein 5.5 g/dL (6.3-8.2)
[2019-05-05] MEDS: IPRATROPIUM-ALBUTEROL 3 ML NEB IH SCH ×4 (08:38→19:14)
--- NOTE | 2019-05-05 08:48 | XR ---
EXAMINATION TYPE: XR chest 1V portable DATE OF EXAM: 05/05/2019 COMPARISON: 05/04/2019 HISTORY: Postop right thoracotomy TECHNIQUE: Single frontal view of the chest is obtained. FINDINGS: Chest tubes have been removed. There is a right apical small pneumothorax measuring less t yañez 5%. Pleural thickening effusion consolidation noted bilaterally. Heart is enlarged. Mild venous c ongestion not excluded. IMPRESSION: 1. Interval chest tubes with a small right apical pneumothorax measuring less than 5%. 2. Bilateral pleural-parenchymal changes. Underlying pneumonia or venous congestion in the differenti al diagnosis.
[2019-05-05] MEDS: SODIUM FERRIC GLUCONAT-SUCROSE 125 MG in SODIUM CHLORIDE 0.9% 100 ML IVPB SCH (08:56)
[2019-05-05] MEDS: CARVEDILOL 6.25 MG TAB PO SCH ×2 (11:09→17:13)
[2019-05-05] MEDS: hydrALAZINE HCL 50 MG TAB PO SCH ×3 (11:09→20:51)
[2019-05-05] MEDS: cloNIDine HCL 0.1 MG TAB PO SCH ×3 (11:09→20:51)
[2019-05-05 11:31] LABS: Glucose,Whole Blood 117 mg/dL (75-99)
--- NOTE | 2019-05-05 12:16 | PN ---
PROGRESS NOTE Patient is seen on hemodialysis. He is a tolerating his treatment well. He is complaining of pain in the chest area. PHYSICAL EXAMINATION: On examination, blood pressure is 164/95, heart rate is 72 per minute. He is afebrile. EXAMINATION OF THE HEART: S1, S2. EXAMINATION OF THE LUNGS: Bilateral breath sounds are heard. Abdomen is soft, nontender. Examination of the lower extremities shows edema 1+ bilaterally. 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 LABS: Labs show hemoglobin 7.5, sodium 132, potassium 6.0, BUN 69, serum creatinine 7.24. ASSESSMENT: 1. End-stage renal disease, on hemodialysis on a Sunday, Sunday, Sunday schedule. Currently seen on dialysis. 2. Volume overload, slightly better than as outpatient. I will arrange for hemodialysis again in a.m. mainly for ultrafiltration. 3. Chronic right loculated effusion, status post thoracotomy and decortication of right lung on 05/01/2019. 4. Chronic kidney disease mineral bone disorder, maintained on PhosLo. PLAN: Repeat hemodialysis in a.m. mainly for ultrafiltration. Maintain patient on Aranesp for the anemia. Currently patient is receiving IV iron. MMODL / IJN: [id number] /
--- NOTE | 2019-05-05 12:53 | P.PN ---
Subjective Progress Note Date: 05/05/19 Principal diagnosis: Chronic right-sided pleural effusion with trapped lung This a 39-year-old white male patient of Dr. 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 Patient was recently hospitalized for loculated right pleural effusion, and interventional radiology placed ultrasound-guided right pleural pigtail catheter, patient received alteplase infusions, and there was serosanguineous drainage draining from the chest tube. However following the placement, and drainage of the pleural fluid the right lung did not reexpand, although the drainage subsided and pigtail catheter was discontinued. He was subsequently discharged and seen by Dr. Ramirez in the outpatient setting. He brought him in today electively for a right thoracotomy, total decortication of the right lung and cryoablation intercostal nerves. Pleural fluids sent for cytology and culture, right pleural peel for pathology and culture. He also placed 3 separate chest tubes. Air leak present mainly from #1. He is seen today in consultation on the selective care unit. He is currently awake and alert in no acute distress. He does have an epidural catheter in place for pain control. He is maintaining O2 saturations in the 90s on 3 L/m per nasal cannula. He is currently hemodynamically stable. The patient is seen today 05/02/2019 in follow-up on the selective care unit. He is currently sitting up in a chair at the bedside. Awake and alert in no acute distress. He's pain is fairly well controlled. He is being followed by Dr. Rahman from anesthesia. Epidural catheter remains in place. 3 chest tubes remain in place. Still a leak from chest tube 1 and 2. All to continuous wall suction. Chest x-ray shows stable findings with postop changes. Left pleural effusion and associated atelectasis. Cardiomegaly. He is working well with the incentive spirometer. Currently 0.750-1000 ML's. Pleural fluid cultures pending. White count 12.2. Hemoglobin 7.6. Creatinine 4.60. Sodium 132. Potassium 5.4. Bicarb 25. He is continued on DuoNeb inhalations, heparin for DVT prophylaxis. The patient is seen today 05/03/2018 in follow-up on the selective care unit. He is currently resting comfortably in bed. Somewhat sedate. Epidural catheter remains in place to pain pump which is being adjusted by anesthesia. He is maintaining O2 saturations in the mid 90s on 2 L/m per nasal cannula. Chest x- ray reveals mild bibasilar infiltrates and small effusions. Right-sided chest tubes remain in place, now to waterseal. He needs increased encouragement regarding the use of incentive spirometer and cough and deep breathing exercises . Currently pulling only 500 ML's. He's afebrile currently but did have a T-max of 100.1 early this a.m. Pleural fluid cultures are pending. White count 8.8. Hemoglobin 7.0. Sodium 133. Potassium 5.0. Creatinine 4.02. Heparin for DVT prophylaxis. On 05/04/2019 patient seen in follow-up on selective care unit, drowsy today, but responds appropriately, states still has pain at the operative site, he has suffered is 750, requires a lot of encouragement and coaching to deep breathe and cough, lung sounds are diminished over left lower lobe, and diffuse crackles on the right. Right-sided chest tubes remain in place, to waterseal, with no evidence of air leak. Small amount of degenerative the chest tubes, CT surgery following, and possibly considering removing 1 or 2 of the chest tubes. Today's chest x-ray has been reviewed showing stable findings, no pneumothorax, persistent cardiomegaly with central vascular congestion and small bilateral pleural effusions with associated bilateral lower lung atelectasis. Patient is due for his hemodialysis treatment tomorrow. Today's labs reviewed, showing sodium of 133, potassium is 4.8, chloride is 95, CO2 is 26, BUN is 53, creatinine is 5.78. Epidural catheter is in, currently infusing at 5 ML per hour, anesthesia services following On 05/05/2019 patient seen in follow-up on selective care unit, a bit more awake on today's exam, complaining of some mild incisional discomfort, no acute distress, currently on room air, hemodynamically stable, patient is afebrile, patient had his hemodialysis treatment today. There has been 4 L of fluid removed, two of the chest tubes had been removed right CT surgery. Minimal output of the remaining chest tube on the right, total of 50 mL in last 24 hours, follow-up chest x-ray today has been reviewed showing small right apical pneumothorax measuring less than 5%, and bilateral pleural parenchymal changes and mild venous congestion. No fever or chills, patient is working on his [employer] spirometer, he is achieving 1000 ml on it today Objective - Vital Signs Vital signs: Vital Signs Temp 97.9 F 05/05/19 11:55 Pulse 82 05/05/19 11:55 Resp 18 05/05/19 11:55 BP 185/92 05/05/19 11:55 Pulse Ox 97 05/05/19 07:54 Intake & Output 05/04/19 05/05/19 05/05/19 18:59 06:59 18:59 Intake Total 686 150 280 Output Total 1 50 4020 Balance 685 100 -3740 Intake: Intake, IV Titration 350 100 Amount Dextrose 10 % in Water 250 250 ml @ 999 mls/hr IV ONCE ONE Rx#:[id number] Sodium Ferric Gluconat- 100 100 Sucrose 125 mg In Sodium Chloride 0.9% 100 ml @ 100 mls/hr IVPB DAILY [facility] Rx#:[id number] Oral 336 150 180 Output: Chest Tube Drainage 50 20 Chest Tube Right 50 20 Urine 0 Urine/Stool Mix 1 Hemodialysis 4000 Other: Voiding Method Urinal Urinal Urinal - Exam GENERAL EXAM: awake and alert, 39-year-old white male, on room air with a pulse ox of 97% comfortable in no apparent distress. HEAD: Normocephalic/atraumatic. EYES: Normal reaction of pupils, equal size. Conjunctiva pink, sclera white. NOSE: Clear with pink turbinates. THROAT: No erythema or exudates. NECK: No masses, no JVD, no thyroid enlargement, no adenopathy. CHEST: No chest wall deformity. Symmetrical expansion. 1 chest tube is in place in the right to waterseal, with no evidence of air leak LUNGS: Equal air entry with diminished breath sounds on the left lower lobe, and diffuse crackles on the right CVS: Regular rate and rhythm, normal S1 and S2, no gallops, no murmurs, no rubs ABDOMEN: Soft, nontender. No hepatosplenomegaly, normal bowel sounds, no guarding or rigidity. EXTREMITIES: No clubbing, no edema, no cyanosis, 2+ pulses and upper and lower extremities. MUSCULOSKELETAL: Muscle strength and tone normal. SPINE: No scoliosis or deformity, epidural catheter is present in thoracic spine, site clean dry and intact, epidural infusing at 5 ML per hour SKIN: No rashes CENTRAL NERVOUS SYSTEM: Lethargic but arousable and oriented -3. No focal deficits, tone is normal in all 4 extremities. - Labs CBC & Chem 7: 05/05/19 07:00 05/05/19 07:00 Labs: Abnormal Lab Results - Last 24 Hours (Table) 05/04/19 05/04/19 05/05/19 Range/Units 17:22 20:13 02:07 RBC (4.30-5.90) m/uL Hgb (13.0-17.5) gm/dL Hct (39.0-53.0) % RDW (11.5-15.5) % Sodium (137-145) mmol/L Potassium (3.5-5.1) mmol/L Chloride (98-107) mmol/L BUN (9-20) mg/dL Creatinine (0.66-1.25) mg/dL Glucose (74-99) mg/dL POC Glucose (mg/dL) 327 H 367 H 284 H (75-99) mg/dL ALT (21-72) U/L Alkaline Phosphatase (38-126) U/L Total Protein (6.3-8.2) g/dL Albumin (3.5-5.0) g/dL 05/05/19 05/05/19 05/05/19 Range/Units 06:50 07:00 07:00 RBC 2.76 L (4.30-5.90) m/uL Hgb 7.5 L (13.0-17.5) gm/dL Hct 23.8 L (39.0-53.0) % RDW 18.4 H (11.5-15.5) % Sodium 132 L (137-145) mmol/L Potassium 6.0 H (3.5-5.1) mmol/L Chloride 93 L (98-107) mmol/L BUN 69 H (9-20) mg/dL Creatinine 7.24 H* (0.66-1.25) mg/dL Glucose 122 H (74-99) mg/dL POC Glucose (mg/dL) 154 H (75-99) mg/dL ALT 10 L (21-72) U/L Alkaline Phosphatase 153 H (38-126) U/L Total Protein 5.5 L (6.3-8.2) g/dL Albumin 3.0 L (3.5-5.0) g/dL 05/05/19 Range/Units 11:30 RBC (4.30-5.90) m/uL Hgb (13.0-17.5) gm/dL Hct (39.0-53.0) % RDW (11.5-15.5) % Sodium (137-145) mmol/L Potassium (3.5-5.1) mmol/L Chloride (98-107) mmol/L BUN (9-20) mg/dL Creatinine (0.66-1.25) mg/dL Glucose (74-99) mg/dL POC Glucose (mg/dL) 117 H (75-99) mg/dL ALT (21-72) U/L Alkaline Phosphatase (38-126) U/L Total Protein (6.3-8.2) g/dL Albumin (3.5-5.0) g/dL Assessment and Plan Plan: Assessment: #1 Chronic right-sided pleural effusion with trapped lung, status post right thoracotomy, total decortication of the right lung, cryoablation intercostal nurse. Fluid for cytology was negative and cultures pending, right pleural peel for pathology was negative and culture pending. Interval removal of 2 right- sided chest tubes, with 1 residual chest tube remains in place with minimal output #2 Previous admission for right pleural effusion, loculated, status post thoracentesis and pigtail placement without significant improvement. #3 Acute hypoxic respiratory failure secondary to above. #4 Hypertension #5 Hyperlipidemia #6 History of type 1 diabetes mellitus with previous history of DKA, diabetic retinopathy and neuropathy #7 Peripheral vascular disease with history of diabetic ulcers and amputations of digits on the left foot #8 End-stage renal disease on hemodialysis #9 History of GI bleeding #10 GERD/reflux Plan: Continue encouraging deep breathing and coughing, today's chest x-ray has been reviewed showing 5% right apical pneumothorax, and improvement in the appearance of bilateral pleural effusions, and atelectasis. Pleural fluid cytology and cultures remain negative. increase activity as tolerated breathing and coughing, continue with nebulized bronchodilators will continue to follow. I performed a history & physical examination of the patient and discussed their management with my nurse practitioner, Lara Reddy. I reviewed the nurse practitioner's note and agree with the documented findings and plan of care. Lung sounds are positive for diminished breath sounds at the left base, and scattered crackles on the right. The findings and the impression was discussed with the patient. I attest to the documentation by the nurse practitioner. Time with Patient: Less than 30
--- NOTE | 2019-05-05 13:51 | P.PN ---
Subjective Progress Note Date: 05/05/19 Principal diagnosis: Right chronic loculated pleural effusion with trapped lung, history of end-stage renal disease with hemodialysis Sunday, Sunday and Fridays, uncontrolled di abetes mellitus, diabetic neuropathy, hypertension, hyperlipidemia, history of GI bleed, gastroesophageal reflux disease, pericardial effusion with tamponade status post pericardial window and bilateral pleural effusion status post bilateral thoracentesis. POD #4 right thoracotomy and total decortication right lung, cryoablation intercostal nerve. Postoperative acute blood loss anemia, expected The patient is laying in bed on the 3 S. cardiac stepdown unit. He is currently undergoing a hemodialysis treatment. He is complaining of surgical type pain to his right chest tube insertion site, denies any complaints of shortness of breath. Oxygen saturation is 97% on room air. He is achieving 1000 mL on his incentive spirometry. Epidural was discontinued yesterday per anesthesia. 2 of his 3 right chest tubes were discontinued yesterday. He still remains with one right pleural chest tube which is to waterseal. No air leak is present. Draining thin serosanguineous drainage and with 130 mL output in the last 24 hours. The patient reports that he was sitting up to the bedside chair for most of the day yesterday. Continue to reinforce with the patient importance of ambulating and using his incentive spirometry. Objective - Vital Signs Vital signs: Vital Signs Temp 97.9 F 05/05/19 11:55 Pulse 82 05/05/19 11:55 Resp 18 05/05/19 11:55 BP 185/92 05/05/19 11:55 Pulse Ox 97 05/05/19 07:54 Intake & Output 05/04/19 05/05/19 05/05/19 18:59 06:59 18:59 Intake Total 686 150 280 Output Total 1 50 4020 Balance 685 100 -3740 Intake: Intake, IV Titration 350 100 Amount Dextrose 10 % in Water 250 250 ml @ 999 mls/hr IV ONCE ONE Rx#:[id number] Sodium Ferric Gluconat- 100 100 Sucrose 125 mg In Sodium Chloride 0.9% 100 ml @ 100 mls/hr IVPB DAILY [facility] Rx#:[id number] Oral 336 150 180 Output: Chest Tube Drainage 50 20 Chest Tube Right 50 20 Urine 0 Urine/Stool Mix 1 Hemodialysis 4000 Other: Voiding Method Urinal Urinal Urinal - Respiratory Details: Lungs sounds are essentially clear to his left lobes, few scattered crackles to his right lobes. Respirations are symmetrical and nonlabored. Oxygen saturat ion are 97% on room air. Achieving 1000 mL on his incentive spirometry. Right pleural chest tube with thin serosanguineous drainage. No air leak is present. 130 mL output the last 24 hours. - Cardiovascular Details: Regular rhythm and rate. S1 and S2 present, negative for S3, gallop or murmur. No edema present. Remote telemetry showing normal sinus rhythm heart rate 77. Knee-high PIPPA hose and sequential compression devices in place was bilateral l ower extremity Floyd. - Gastrointestinal Gastrointestinal Comment(s): Abdomen is soft, nontender nondistended. Active bowel sounds present in all 4 abdominal quadrants. No guarding or rigidity. Passing flatus. Tolerating oral intake. - Genitourinary Genitourinary Comment(s): Hemodialysis treatments Sunday and Sunday. Right arm AV fistula with good thrill and bruit. Currently undergoing a hemodialysis treatment. - Integumentary Integumentary Comment(s): Skin is warm and dry. No clubbing or cyanosis is present. Right lower cautery incision is clean, dry and approximated. No drainage or redness present. - Neurologic Neurologic Comment(s): No focal deficits. Neurologic: Present: CNII-XII intact - Musculoskeletal Musculoskeletal: Present: gait normal, generalized weakness, strength equal bilaterally - Psychiatric Psychiatric: Present: A&O x's 3, appropriate affect, intact judgment & insight - Allied health notes Allied health notes reviewed: nursing - Labs CBC & Chem 7: 05/05/19 07:00 05/05/19 07:00 Labs: Abnormal Lab Results - Last 24 Hours (Table) 05/04/19 05/04/19 05/05/19 Range/Units 17:22 20:13 02:07 RBC (4.30-5.90) m/uL Hgb (13.0-17.5) gm/dL Hct (39.0-53.0) % RDW (11.5-15.5) % Sodium (137-145) mmol/L Potassium (3.5-5.1) mmol/L Chloride (98-107) mmol/L BUN (9-20) mg/dL Creatinine (0.66-1.25) mg/dL Glucose (74-99) mg/dL POC Glucose (mg/dL) 327 H 367 H 284 H (75-99) mg/dL ALT (21-72) U/L Alkaline Phosphatase (38-126) U/L Total Protein (6.3-8.2) g/dL Albumin (3.5-5.0) g/dL 05/05/19 05/05/19 05/05/19 Range/Units 06:50 07:00 07:00 RBC 2.76 L (4.30-5.90) m/uL Hgb 7.5 L (13.0-17.5) gm/dL Hct 23.8 L (39.0-53.0) % RDW 18.4 H (11.5-15.5) % Sodium 132 L (137-145) mmol/L Potassium 6.0 H (3.5-5.1) mmol/L Chloride 93 L (98-107) mmol/L BUN 69 H (9-20) mg/dL Creatinine 7.24 H* (0.66-1.25) mg/dL Glucose 122 H (74-99) mg/dL POC Glucose (mg/dL) 154 H (75-99) mg/dL ALT 10 L (21-72) U/L Alkaline Phosphatase 153 H (38-126) U/L Total Protein 5.5 L (6.3-8.2) g/dL Albumin 3.0 L (3.5-5.0) g/dL 05/05/19 Range/Units 11:30 RBC (4.30-5.90) m/uL Hgb (13.0-17.5) gm/dL Hct (39.0-53.0) % RDW (11.5-15.5) % Sodium (137-145) mmol/L Potassium (3.5-5.1) mmol/L Chloride (98-107) mmol/L BUN (9-20) mg/dL Creatinine (0.66-1.25) mg/dL Glucose (74-99) mg/dL POC Glucose (mg/dL) 117 H (75-99) mg/dL ALT (21-72) U/L Alkaline Phosphatase (38-126) U/L Total Protein (6.3-8.2) g/dL Albumin (3.5-5.0) g/dL - Imaging and Cardiology Chest x-ray: report reviewed, image reviewed Assessment and Plan Assessment: 1. Right chronic loculated pleural effusion with trapped lung, status post right thoracotomy, total decortication right lung, cryoablation intercostal nerve 2. End-stage renal disease, on hemodialysis Sunday, Sunday and Fridays 3. Hypertension 4. Hyperlipidemia 5. Uncontrolled diabetes mellitus, diabetic neuropathy 6. History of GI bleed 7. GERD Plan: 1. Keep right pleural chest tube in place today to waterseal. Anticipate removal of right pleural chest tube tomorrow 05/06/2019. 2. Hemodialysis management per nephrology's recommendations. Hemodialysis schedule Sunday. 3. Encourage activity as tolerated. Out of bed for all meals. Physical and occupational therapy following patient. 4. Encourage use of his incentive spirometry every hour while awake. 5. Bronchodilator management per pulmonary medicine. 6. GI and DVT prophylaxis. 7. Medical management recommendations per primary care service. 8. Pain management per current when necessary orders 9. More recommendations follow based on patient's clinical course. Time with Patient: Greater than 30
[2019-05-05 14:05] VITALS: BMI 26.6
[2019-05-05 16:51] LABS: Glucose,Whole Blood 290 mg/dL (75-99)
--- NOTE | 2019-05-05 20:13 | PN ---
PROGRESS NOTE DATE OF SERVICE: 05/05/2019. This 39-year-old gentleman was admitted after right thoracotomy as well as decortication, is improving significantly. No chest pain. No palpitations. No fever. EXAM: Alert and oriented x3. Pulse is 86. Blood pressure 140/84. Respirations 18. Temperature 98.3, pulse ox 98% on room air. HEENT: Conjunctivae normal. NECK: No jugular venous distention. CARDIOVASCULAR: S1, S2 muffled. RESPIRATORY: Breath sounds diminished in the bases. A few rhonchi and crackles. ABDOMEN is soft, nontender. LEGS are no edema. No swelling. CENTRAL NERVOUS SYSTEM: No focal deficits. LAB STUDIES: WBC 6.7, hemoglobin is 7.4, potassium 6, sodium 132, creatinine 7.24. Other labs are noted. ASSESSMENT: 1. Status post right thoracotomy as well as decortication of the right lung for right chronic loculated pleural effusion with a trapped lung. 2. Chronic renal failure on hemodialysis. 3. Hyperkalemia secondary to renal failure. 4. Diabetes type 2. 5. Acute hypoxic respiratory failure secondary to possible atelectasis. 6. Hyponatremia. 7. Anemia, normocytic anemia of chronic disease. 8. History of asthma, chronic, intermittent. 9. Gastroesophageal reflux disease. 10.History of gastrointestinal bleed. 11.Hypertension. 12.Hyperlipidemia. 13.History of pneumonia. 14.History of loculated pleural effusion with pigtail catheter history on the right. 15.History of hiatal hernia. 16.History of peptic ulcer disease. 17.History of cardiac tamponade history. 18.History of osteomyelitis of the left foot. 19.History of Methicillin-resistant Staphylococcus aureus. 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 21.History of depression. RECOMMENDATIONS AND DISCUSSION: I recommend to continue current medications. Continue with monitoring. Symptomatic treatment. Otherwise at this time I recommend continue with monitoring potassium, low- potassium diet, and we will repeat lytes. Closely follow with Nephrology. Guarded prognosis. Further recommendations to follow. MMODL / IJN: [id number] /
[2019-05-05 20:33] LABS: Glucose,Whole Blood 375 mg/dL (75-99)
[2019-05-05] MEDS: INSULIN DETEMIR (LEVEMIR) 100 UNIT/ML SYR SQ SCH (20:50)
[2019-05-05] MEDS: MULTIVITAMINS, THERA 1 EACH TAB PO SCH (20:51)
[2019-05-05] MEDS: ARIPiprazole 10 MG TAB PO SCH (20:51)
[2019-05-05] MEDS: DESVENLAFAXINE SUCCINATE 50 MG TAB.ER.24H PO SCH (20:51)
[2019-05-05] MEDS: PRAVASTATIN SODIUM 40 MG TAB PO SCH (20:51)
[2019-05-05] MEDS: amLODIPine 10 MG TAB PO SCH (20:51)
[2019-05-05] MEDS: PANTOPRAZOLE 40 MG TABLET PO SCH (20:51)
[2019-05-05 21:50] LABS: Hemoglobin A1C 11.9 % (4.0-6.0)
[2019-05-06 02:04] LABS: Glucose,Whole Blood 325 mg/dL (75-99)
[2019-05-06] MEDS: HYDROcodone/APAP 5-325MG 1 EACH TAB PO PRN (03:58)
[2019-05-06] MEDS: CALCIUM ACETATE 667 MG CAP PO SCH ×3 (06:41→15:00)
[2019-05-06] MEDS: INSULIN ASPART (NovoLOG) 100 UNIT/ML VIAL SQ SCH ×3 (06:41→15:00)
[2019-05-06 06:46] LABS: Glucose,Whole Blood 223 mg/dL (75-99)
--- NOTE | 2019-05-06 07:40 | XR ---
EXAMINATION TYPE: XR chest 2V DATE OF EXAM: 05/06/2019 COMPARISON: 05/05/2019 TECHNIQUE: PA and lateral views submitted. HISTORY: Postthoracotomy, chest tube FINDINGS: Heart is enlarged and is bilateral infiltrate and pleural effusion. There is a 5% right right-sided p neumothorax suspected. There is a tube overlying the lower right chest which may represent chest tube . Interstitium is increased and stable. Arthropathy shoulders. Hypertrophic and degenerative change s pine. IMPRESSION: 1. Stable bilateral infiltrate and pleural effusion cardiomegaly. Underlying venous congestion not ex cluded. Suspect a chest tube overlying the right lower lung field. Small residual pneumothorax is leydi pected measuring approximately 5%.
[2019-05-06] MEDS: KETOROLAC 30 MG/ML 1 ML VIAL IVP PRN (08:04)
[2019-05-06] MEDS: ACETAMINOPHEN TAB 500 MG TAB PO PRN (08:06)
[2019-05-06] MEDS: IPRATROPIUM-ALBUTEROL 3 ML NEB IH SCH ×3 (08:39→15:00)
[2019-05-06] MEDS ORDERED: HYDROcodone/APAP 7.5-325MG 1 EACH TAB PO PRN (08:53)
[2019-05-06] MEDS: CARVEDILOL 6.25 MG TAB PO SCH ×3 (09:23→15:00)
[2019-05-06] MEDS: HEPARIN SODIUM,PORCINE 5,000 UNIT/ML 1 ML VIAL SQ SCH ×2 (09:24→14:59)
[2019-05-06] MEDS: cloNIDine HCL 0.1 MG TAB PO SCH ×3 (09:26→14:59)
[2019-05-06] MEDS: hydrALAZINE HCL 50 MG TAB PO SCH ×3 (09:26→14:59)
--- NOTE | 2019-05-06 11:45 | XR ---
EXAMINATION TYPE: XR chest 2V DATE OF EXAM: 05/06/2019 COMPARISON: 05/06/2019 TECHNIQUE: PA and lateral views submitted. HISTORY: Chest tube removal FINDINGS: Bilateral infiltrate and pleural effusion with cardiomegaly and interstitial pattern stable. There is a right-sided pneumothorax seen along the right lung apex and mid lateral and lower right lung field measuring approximately 5-10%. Chest tube is been removed. IMPRESSION: 1. Chest tube removal with a 5-10% right-sided pneumothorax. Bilateral consolidation and pleural effu ammon stable underlying CHF in the differential diagnosis.
--- NOTE | 2019-05-06 12:15 | P.PN ---
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 Trevino/Ranjit, [facility], with history of end-stage renal disease on hemodialysis 3 times a week, diabetes mellitus type I with previous episodes of DKA, hypertension, hyperlipidemia, chronic anemia, history of GI bleed secondary to peptic ulcer disease, peripheral vascular disease, diabetic foot ulcers and amputation of digits from his left foot, history of cardiac tamponade with pericardial window. Patient was recently hospitalized for loculated right pleural effusion, and interventional radiology placed ultrasound-guided right pleural pigtail catheter, patient received alteplase infusions, and there was serosanguineous drainage draining from the chest tube. However following the placement, and drainage of the pleural fluid the right lung did not reexpand, although the drainage subsided and pigtail catheter was discontinued. He was subsequently discharged and seen by Dr. Ramirez in the outpatient setting. He brought him in today electively for a right thoracotomy, total decortication of the right lung and cryoablation intercostal nerves. Pleural fluids sent for cytology and culture, right pleural peel for pathology and culture. He also placed 3 separate chest tubes. Air leak present mainly from #1. He is seen today in consultation on the selective care unit. He is currently awake and alert in no acute distress. He does have an epidural catheter in place for pain control. He is maintaining O2 saturations in the 90s on 3 L/m per nasal cannula. He is currently hemodynamically stable. The patient is seen today 05/02/2019 in follow-up on the selective care unit. He is currently sitting up in a chair at the bedside. Awake and alert in no acute distress. He's pain is fairly well controlled. He is being followed by Dr. Rahman from anesthesia. Epidural catheter remains in place. 3 chest tubes remain in place. Still a leak from chest tube 1 and 2. All to continuous wall suction. Chest x-ray shows stable findings with postop changes. Left pleural effusion and associated atelectasis. Cardiomegaly. He is working well with the incentive spirometer. Currently 0.750-1000 ML's. Pleural fluid cultures pending. White count 12.2. Hemoglobin 7.6. Creatinine 4.60. Sodium 132. Potassium 5.4. Bicarb 25. He is continued on DuoNeb inhalations, heparin for DVT prophylaxis. The patient is seen today 05/03/2018 in follow-up on the selective care unit. He is currently resting comfortably in bed. Somewhat sedate. Epidural catheter remains in place to pain pump which is being adjusted by anesthesia. He is maintaining O2 saturations in the mid 90s on 2 L/m per nasal cannula. Chest x- ray reveals mild bibasilar infiltrates and small effusions. Right-sided chest tubes remain in place, now to waterseal. He needs increased encouragement regarding the use of incentive spirometer and cough and deep breathing exercises . Currently pulling only 500 ML's. He's afebrile currently but did have a T-max of 100.1 early this a.m. Pleural fluid cultures are pending. White count 8.8. Hemoglobin 7.0. Sodium 133. Potassium 5.0. Creatinine 4.02. Heparin for DVT prophylaxis. On 05/04/2019 patient seen in follow-up on selective care unit, drowsy today, but responds appropriately, states still has pain at the operative site, he has suffered is 750, requires a lot of encouragement and coaching to deep breathe and cough, lung sounds are diminished over left lower lobe, and diffuse crackles on the right. Right-sided chest tubes remain in place, to waterseal, with no evidence of air leak. Small amount of degenerative the chest tubes, CT surgery following, and possibly considering removing 1 or 2 of the chest tubes. Today's chest x-ray has been reviewed showing stable findings, no pneumothorax, persistent cardiomegaly with central vascular congestion and small bilateral pleural effusions with associated bilateral lower lung atelectasis. Patient is due for his hemodialysis treatment tomorrow. Today's labs reviewed, showing sodium of 133, potassium is 4.8, chloride is 95, CO2 is 26, BUN is 53, creatinine is 5.78. Epidural catheter is in, currently infusing at 5 ML per hour, anesthesia services following On 05/05/2019 patient seen in follow-up on selective care unit, a bit more awake on today's exam, complaining of some mild incisional discomfort, no acute distress, currently on room air, hemodynamically stable, patient is afebrile, patient had his hemodialysis treatment today. There has been 4 L of fluid removed, two of the chest tubes had been removed right CT surgery. Minimal output of the remaining chest tube on the right, total of 50 mL in last 24 hours, follow-up chest x-ray today has been reviewed showing small right apical pneumothorax measuring less than 5%, and bilateral pleural parenchymal changes and mild venous congestion. No fever or chills, patient is working on his incen tive spirometer, he is achieving 1000 ml on it today On 05/06/2019 patient seen in follow-up on selective care unit, his remaining chest tube site on the right has been removed this morning, in follow-up chest x-ray showed 5-10% right-sided pneumothorax, bilateral consolidation and pleural effusions possibly related to congestive heart failure. Patient is breathing easier, he is awake and alert, in no acute distress. Working on incentive spirometer, no complaints chest pain, no cough or congestion, lung sounds positive for diminished breath sounds over right lower lobe, and crackles over l eft lower lobe. Had his dialysis treatment yesterday, with removal of 4 L of fluid. Vital signs have been stable, patient has been afebrile. Pleural fluid and right lung cultures have shown no growth. No new labs today. No acute events overnight, anticipate discharge home today Objective - Vital Signs Vital signs: Vital Signs Temp 97.6 F 05/06/19 08:10 Pulse 84 05/06/19 11:01 Resp 18 05/06/19 11:01 BP 164/96 05/06/19 08:10 Pulse Ox 96 05/06/19 08:10 Intake & Output 05/05/19 05/06/19 05/06/19 18:59 06:59 18:59 Intake Total 562 300 Output Total 4100 490 Balance -3538 -490 300 Weight 93.894 kg 89 kg Intake: Intake, IV Titration 100 Amount Sodium Ferric Gluconat- 100 Sucrose 125 mg In Sodium Chloride 0.9% 100 ml @ 100 mls/hr IVPB DAILY [facility] Rx#:[id number] Oral 462 300 Output: Chest Tube Drainage 100 40 Chest Tube Right 100 40 Urine 450 Hemodialysis 4000 Other: Voiding Method Urinal Urinal Urinal - Exam GENERAL EXAM: awake and alert, 39-year-old white male, on room air with a pulse ox of 97% comfortable in no apparent distress. HEAD: Normocephalic/atraumatic. EYES: Normal reaction of pupils, equal size. Conjunctiva pink, sclera white. NOSE: Clear with pink turbinates. THROAT: No erythema or exudates. NECK: No masses, no JVD, no thyroid enlargement, no adenopathy. CHEST: No chest wall deformity. Symmetrical expansion. Interval removal of the remaining right-sided chest tube LUNGS: Equal air entry with diminished breath sounds on the left lower lobe, and diffuse crackles on the right CVS: Regular rate and rhythm, normal S1 and S2, no gallops, no murmurs, no rubs ABDOMEN: Soft, nontender. No hepatosplenomegaly, normal bowel sounds, no guarding or rigidity. EXTREMITIES: No clubbing, no edema, no cyanosis, 2+ pulses and upper and lower extremities. MUSCULOSKELETAL: Muscle strength and tone normal. SPINE: No scoliosis or deformity, epidural catheter is present in thoracic spine, site clean dry and intact, epidural infusing at 5 ML per hour SKIN: No rashes CENTRAL NERVOUS SYSTEM: Lethargic but arousable and oriented -3. No focal deficits, tone is normal in all 4 extremities. 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 Interval removal of 2 right- sided chest tubes, with 1 residual chest tube remains in place with minimal ou tput On 05/06/2019 the remaining right-sided chest tube has been removed, with post- removal chest x-ray showing 5-10% right-sided pneumothorax, clinically asymptomatic, breathing easier, he is on room air, no specific complaints, we would cultures and right pleural peel culture were negative. Pathology negative. And the discharge home today. #2 Previous admission for right pleural effusion, loculated, status post thoracentesis and pigtail placement without significant improvement. #3 Acute hypoxic respiratory failure secondary to above. #4 Hypertension #5 Hyperlipidemia #6 History of type 1 diabetes mellitus with previous history of DKA, diabetic retinopathy and neuropathy #7 Peripheral vascular disease with history of diabetic ulcers and amputations of digits on the left foot #8 End-stage renal disease on hemodialysis #9 History of GI bleeding #10 GERD/reflux Plan: Patient is stable for discharge home from pulmonary perspective, remaining right-sided chest tube has been discontinued, follow-up chest x-ray reviewed showing small right-sided pneumothorax, clinically asymptomatic. Follow-up in the outpatient setting with Dr. Bennett in 7-10 days. Continue encouraging deep breathing and coughing. I performed a history & physical examination of the patient and discussed their management with my nurse practitioner, Lara Reddy. I reviewed the nurse practitioner's note and agree with the documented findings and plan of care. Lung sounds are positive for diminished breath sounds at the left base, and scattered crackles on the right. The findings and the impression was discussed with the patient. I attest to the documentation by the nurse practitioner. Time with Patient: Less than 30
[2019-05-06 12:26] LABS: Glucose,Whole Blood 200 mg/dL (75-99)
[2019-05-06 13:21] VITALS: BP 198/100; PULSE 89; RESP 16; TEMP 98.5
--- NOTE | 2019-05-06 14:40 | P.DS ---
Providers Date of admission: 05/01/19 05:52 Expected date of discharge: 05/06/19 Attending physician: Chad Ramirez Consults: 05/01/19 10:33 Consult Physician Routine Consulting Provider: Volodymyr Tarango Consult Reason/Comments: Pulmonary Management Do you want consulting provider notified?: Yes Consult Physician Routine Consulting Provider: Zander Urias Consult Reason/Comments: Medical Mangement Do you want consulting provider notified?: Yes Consult Physician Routine Consulting Provider: Jojo Charles Consult Reason/Comments: Dialysis management Do you want consulting provider notified?: Yes Primary care physician: Chad [facility] Course: FINAL DIAGNOSIS: 1. Right chronic loculated pleural effusion with trapped lung, status post right thoracotomy, total decortication right lung, cryoablation intercostal nerve 2. End-stage renal disease, on hemodialysis Sunday, Sunday and Fridays 3. Hypertension 4. Hyperlipidemia 5. Uncontrolled diabetes mellitus, diabetic neuropathy 6. History of GI bleed 7. GERD PRINCIPAL PROCEDURE: 1. Right thoracotomy, total decortication right lung, cryoablation intercostal nerves HISTORY OF PRESENT ILLNESS: This is a 39-year-old gentleman who is followed by Dr. Trevino on an outpatient basis. His past medical history significant for end- stage renal disease with hemodialysis schedule on Wednesdays and Fridays, diabetes mellitus type 1, diabetic neuropathy, hypertension, hyperlipidemia, gastroesophageal reflux disease, history of bilateral pleural effusion with history of bilateral thoracentesis, history of pericardial effusion with tamponade status post pericardial window, history of diabetic foot ulcer with history of A. fib dictation to his toes to his left foot, cataract to his left eye, GI bleed and remote history of pneumonia. Recently the patient has had complaints of progressive shortness of breath with lower extremity edema. He was found to have a recurrence of his right sided pleural effusion with trapped lung. The patient has undergone several thoracentesis and pigtail catheter placements for his recurrent right pleural effusions. Subsequently due to his trapped right lung secondary to chronic effusions and previous pneumonia the patient was seen by Dr. Chad Ramirez on an outpatient basis. Dr. Ramirez discussed all of his diagnostics findings with the patient and recommended the patient undergo a right thoracotomy with right lung decortication. Risks and benefits of the surgery and possible alternative therapies were discussed with the patient by Dr. Ramirez. The patient wished to proceed with a right thoracotomy with decortication. HOSPITAL COURSE: The patient was admitted to the hospital and after obtaining consent was taken to the operating room where Dr. Chad Ramirez performed an elective right thoracotomy, total decortication right lung, cryoablation intercostal nerves. Upon completion of the surgery the patient was recovered and subsequently transferred to [address] [place] [address] cardiac stepdown unit for further monitoring and rehabilitation. Subsequently, all lines, chest tubes tubes and supportive drips were discontinued when appropriate. His oxygen was titrated down, he continued to work with physical and occupational therapy, he has been tolerating an oral diet, his pain is well controlled and he is ready to be discharged home on postoperative day #5. The patient's pathology showed right lung decortication fibromembranous pleural scar with fibrin deposition consistent with reaction to chronic pneumothorax and his cytology pleural fluid showed mixed inflammation and reactive mesothelial cells, cells cytologically diagnostic of malignancy were not identified. The patient and his mother have received written and verbal instructions regarding his medications, dressing change instructions to his left chest tube dressing site, activity restrictions, signs and symptoms which require physician notification and his follow-up appointments. COMPLICATIONS: There were no postoperative complications. CONSULTATIONS: 1. Dr. Sarkar for nephrology management. 2. Dr. Tarango for pulmonary management. 3. Dr. Urias for medical management. DISCHARGE INSTRUCTIONS: 1. No driving for 2 weeks or until physician gives their okay. 2. No lifting, pushing or pulling more than 10 pounds for 2 weeks. The physician will advise of any restriction changes. 3. Continue pain control per as needed orders. Alternate acetaminophen and ibuprofen for pain. 4. Continue with incentive spirometry and splinting until otherwise directed by the physician. 5. Leave chest tube dressing for 48 hours. After the 48 hours remove all dressings and shower daily. 6. Routine incision care. No powders, lotions, or ointments on incision. 7. Please call surgeon/ASSOCIATE SOFTWARE ENGINEER for temperature greater than 101F or drainage from the incision. 8. Narcotic medications were discussed with the patient, including the potential for this use, addiction, and abuse. Plan - Discharge Summary Discharge Rx Participant: Yes New Discharge Prescriptions: No Action Pravastatin Sodium [Pravachol] 40 mg PO HS Omeprazole [PriLOSEC] 40 mg PO HS ARIPiprazole [Abilify] 10 mg PO HS hydrALAZINE HCL [Apresoline] 100 mg PO TID #90 tab tiZANidine [Zanaflex] 2 mg PO Q8HR PRN PRN Reason: Muscle Spasm Thera M Plus 1 tab PO HS amLODIPine [Norvasc] 10 mg PO HS Carvedilol [Coreg] 6.25 mg PO BID Calcium Acetate [PhosLo] 667 mg PO AC-TID #90 cap Ondansetron Odt [Zofran ODT] 4 mg PO Q8HR PRN PRN Reason: Nausea And Vomiting Insulin Aspart [NovoLOG] See Protocol SQ ACHS Dicyclomine [Bentyl] 20 mg PO Q6H PRN PRN Reason: STOMACH PAIN Insulin Degludec [Tresiba] 30 unit SQ HS Glucagon Emergency Kit 1 mg IM ONCE PRN PRN Reason: HYPOGLYCEMIA EVENT cloNIDine HCL [Catapres] 0.1 mg PO TID #90 tab Hydrocodone/Acetaminophen [[place] 7.5-325] 1 tab PO BID Desvenlafaxine Succinate [Pristiq] 100 mg PO HS Discharge Medication List Pravastatin Sodium [Pravachol] 40 mg PO HS 12/26/15 [History] ARIPiprazole [Abilify] 10 mg PO HS 09/07/16 [History] Omeprazole [PriLOSEC] 40 mg PO HS 09/07/16 [History] hydrALAZINE HCL [Apresoline] 100 mg PO TID #90 tab 07/04/17 [Rx] Thera M Plus 1 tab PO HS 08/05/18 [History] tiZANidine [Zanaflex] 2 mg PO Q8HR PRN 08/05/18 [History] Carvedilol [Coreg] 6.25 mg PO BID 11/14/18 [History] amLODIPine [Norvasc] 10 mg PO HS 11/14/18 [History] Calcium Acetate [PhosLo] 667 mg PO AC-TID #90 cap 11/15/18 [Rx] Dicyclomine [Bentyl] 20 mg PO Q6H PRN 02/28/19 [History] Glucagon Emergency Kit 1 mg IM ONCE PRN 02/28/19 [History] Insulin Aspart [NovoLOG] See Protocol SQ ACHS 02/28/19 [History] Insulin Degludec [Tresiba] 30 unit SQ HS 02/28/19 [History] Ondansetron Odt [Zofran ODT] 4 mg PO Q8HR PRN 02/28/19 [History] cloNIDine HCL [Catapres] 0.1 mg PO TID #90 tab 03/07/19 [Rx] Desvenlafaxine Succinate [Pristiq] 100 mg PO HS 04/23/19 [History] Hydrocodone/Acetaminophen [[place] 7.5-325] 1 tab PO BID 04/23/19 [History] Follow up Appointment(s)/Referral(s): Volodymyr Tarango MD [STAFF PHYSICIAN] - 1 Week Chad Ramirez MD [STAFF PHYSICIAN] - 1 Week (Please call the office in 1 week to make a follow-up appointment.) Janis Church NPC [REFERRING] - 05/13/19 9:00 am (Sunday) Patient Instructions/Handouts: Thoracotomy (DC) Activity/Diet/Wound Care/Special Instructions: Continue hemodialysis per previous schedule Sunday. Discharge Disposition: HOME SELF-CARE
--- NOTE | 2019-05-06 16:23 | P.PN ---
Subjective Progress Note Date: 05/06/19 Principal diagnosis: This is a 39-year-old male who was admitted status post right currently as well as decortication and has been improving significantly. Patient is being closely monitored. Chest tubes have been removed. Patient is currently receiving dialysis is normally is on a Sunday schedule and this is extra to remove 2.5 liters today per nephrology. Patient is awaiting to be discharged after hemodialysis. Patient denies any chest pain, shortness of breath, or palpitations at this time. Patient is afebrile. Patient denies any nausea or vomiting and is tolerating diet. PT/OT have been working with the patient. Guarded prognosis. Objective - Vital Signs Vital signs: Vital Signs Temp 98.5 F 05/06/19 13:19 Pulse 89 05/06/19 13:19 Resp 16 05/06/19 13:19 BP 198/100 05/06/19 13:19 Pulse Ox 96 05/06/19 08:10 Intake & Output 05/05/19 05/06/19 05/06/19 18:59 06:59 18:59 Intake Total 562 660 Output Total 4100 490 3200 Balance -8560 -490 -6830 Weight 93.894 kg 89 kg Intake: Intake, IV Titration 100 Amount Sodium Ferric Gluconat- 100 Sucrose 125 mg In Sodium Chloride 0.9% 100 ml @ 100 mls/hr IVPB DAILY [facility] Rx#:[id number] Oral 462 660 Output: Chest Tube Drainage 100 40 Chest Tube Right 100 40 Urine 450 400 Hemodialysis 4000 2800 Other: Voiding Method Urinal Urinal Urinal - Exam Gen: This is a 39-year-old male sitting up in bed in no acute distress receiving dialysis at this time. HEENT: Head is atraumatic, normocephalic. Pupils equal, round. Sclerae is anicteric. NECK: Supple. No JVD. No lymphadenopathy. No thyromegaly. LUNGS: Diminished breath sounds at the bases with a few crackles noted. No wheezes or rhonchi. No intercostal retractions. HEART: S1 and S2 are muffled. No murmur. ABDOMEN: Soft. Bowel sounds are present. No masses. No tenderness. EXTREMITIES: No pedal edema. No calf tenderness. Dialysis catheter noted of the right lower extremity as he is currently receiving hemodialysis at this time. NEUROLOGICAL: Patient is awake, alert and oriented x3. Cranial nerves 2 through 12 are grossly intact. - Labs CBC & Chem 7: 05/05/19 07:00 05/05/19 07:00 Labs: Abnormal Lab Results - Last 24 Hours (Table) 05/05/19 05/05/19 05/05/19 Range/Units 07:00 16:50 20:20 POC Glucose (mg/dL) 290 H 375 H (75-99) mg/dL Hemoglobin A1c 11.9 H (4.0-6.0) % 05/06/19 05/06/19 05/06/19 Range/Units 01:59 06:28 12:06 POC Glucose (mg/dL) 325 H 223 H 200 H (75-99) mg/dL Hemoglobin A1c (4.0-6.0) % Assessment and Plan Assessment: Status post right thoracotomy as well as decortication of the right lung for right chronic loculated pleural effusions with a trapped lung Chronic renal failure on hemodialysis Hyperkalemia secondary to renal failure Diabetes type 2 Acute hypoxic respiratory failure secondary to possible atelectasis Hyponatremia Anemia, normocytic anemia of chronic disease History of asthma, chronic, intermittent GERD History of gastrointestinal bleed Hypertension Hyperlipidemia History of pneumonia history of loculated pleural effusion with pigtail catheter history on the right History of hiatal hernia History of peptic ulcer disease history of cardiac tamponade not history History of osteomyelitis of the left foot History of methicillin-resistant Staphylococcus aureus History of ASSISTED SALES REPRESENTATIVE shunt History of depression Recommendations and discussions Recommend continue current medications and symptomatic treatment. Will continue to monitor closely. Receiving hemodialysis at this time. Continue to closely follow with nephrology. Guarded prognosis. Further recommendations to follow. Patient is awaiting discharge after hemodialysis this afternoon. Patient will continue with his Sunday hemodialysis sessions.
--- NOTE | 2019-05-06 18:00 | PN ---
PROGRESS NOTE This patient is seen this morning for followup for end-stage renal disease. He will be having an extra treatment today mainly for ultrafiltration. Chest pain is improved and patient will be going home today. PHYSICAL EXAMINATION: This morning blood pressure was 188/109, heart rate 86 per minute. Patient is afebrile. Examination of the heart S1, S2. Examination of the lungs, bilateral breath sounds are heard. Abdomen is soft, nontender. Examination of lower extremities shows no evidence of edema. ASSESSMENT: 1. End-stage renal disease, on hemodialysis on a Sunday, Sunday, Sunday schedule. 2. Status post right thoracotomy with total decortication of right lung. The patient is being discharged today and will follow up with cardiothoracic surgery as an outpatient. 3. Volume overload currently significantly improved. 4. Chronic kidney disease mineral bone disorder. 5. Hypertension, uncontrolled. PLAN: Hemodialysis today with UF of about 2-2.5 L. Followup as outpatient for regular hemodialysis in a.m. MMODL / IJN: [id number] /
== END 2019-05-06 15:26 | disposition home or self-care (01) | DRG 163 ==
LOC: 2ORMAIN 05:52 → 3SCARD 10:34
PROVIDERS: ADMIT Thoracic Surgery (Cardiothoracic Vascular Surgery); ATTEND Thoracic Surgery (Cardiothoracic Vascular Surgery)
PROC: 0W9930Z Drainage of Right Pleural Cavity with Drainage Device, Percutaneous Approach (ICD-10-PCS; 2019-05-01)
PROC: 0W9930Z Drainage of Right Pleural Cavity with Drainage Device, Percutaneous Approach (ICD-10-PCS; 2019-05-01)
PROC: 0W9930Z Drainage of Right Pleural Cavity with Drainage Device, Percutaneous Approach (ICD-10-PCS; 2019-05-01)
PROC: 0BNK0ZZ Release Right Lung, Open Approach (ICD-10-PCS; principal; 2019-05-01 07:30)
PROC: 5A1D70Z Performance of Urinary Filtration, Intermittent, Less than 6 Hours Per Day (ICD-10-PCS; 2019-05-02)
DX: J98.4 Other disorders of lung (principal); J96.01 Acute respiratory failure with hypoxia; N18.6 End stage renal disease; D62 Acute posthemorrhagic anemia; E87.1 Hypo-osmolality and hyponatremia; I12.0 Hypertensive chronic kidney disease with stage 5 chronic kidney disease or end stage renal disease; J98.11 Atelectasis; E10.22 Type 1 diabetes mellitus with diabetic chronic kidney disease; E10.319 Type 1 diabetes mellitus with unspecified diabetic retinopathy without macular edema; E10.40 Type 1 diabetes mellitus with diabetic neuropathy, unspecified; E10.51 Type 1 diabetes mellitus with diabetic peripheral angiopathy without gangrene; E10.65 Type 1 diabetes mellitus with hyperglycemia; E61.1 Iron deficiency; D63.1 Anemia in chronic kidney disease; E78.5 Hyperlipidemia, unspecified; E87.5 Hyperkalemia; E87.70 Fluid overload, unspecified; I48.91 Unspecified atrial fibrillation; J45.909 Unspecified asthma, uncomplicated; J90 Pleural effusion, not elsewhere classified; J93.82 Other air leak; K21.9 Gastro-esophageal reflux disease without esophagitis; M89.8X9 Other specified disorders of bone, unspecified site; Z79.4 Long term (current) use of insulin; Z79.899 Other long term (current) drug therapy; Z82.3 Family history of stroke; Z82.49 Family history of ischemic heart disease and other diseases of the circulatory system; Z83.3 Family history of diabetes mellitus; Z86.14 Personal history of Methicillin resistant Staphylococcus aureus infection; Z87.01 Personal history of pneumonia (recurrent); Z87.11 Personal history of peptic ulcer disease; Z96.649 Presence of unspecified artificial hip joint; Z98.2 Presence of cerebrospinal fluid drainage device; Z99.2 Dependence on renal dialysis; H26.9 Unspecified cataract; Z88.5 Allergy status to narcotic agent; Z88.8 Allergy status to other drugs, medicaments and biological substances; Z89.422 Acquired absence of other left toe(s)
CPT/HCPCS: 36415; 71045; 71046; 80048; 80053; 82728; 83036; 83540; 83550; 85025; 85027; 86850; 86900; 86901; 86920; 87102; 87116; 87206; 88108; 88305; 90935; 94640; 94760

== ENCOUNTER 2020-04-19 04:05 | Observation (INO) | payer MEDICARE, OTHER ==
[2020-04-19] MEDS ORDERED: NALOXONE 0.4 MG/ML 1 ML VIAL IV PRN (04:40)
[2020-04-19] MEDS ORDERED: tiZANidine 4 MG TAB PO PRN (04:42)
[2020-04-19] MEDS ORDERED: ONDANSETRON ODT 4 MG TAB PO PRN (04:42)
[2020-04-19] MEDS ORDERED: DICYCLOMINE 20 MG TAB PO PRN (04:42)
[2020-04-19 05:08] LABS: Glucose,Whole Blood 373 mg/dL (75-99)
--- NOTE | 2020-04-19 05:34 | ED ---
SOB HPI - General Chief Complaint: Shortness of Breath Stated Complaint: SOB Source: patient, EMS Mode of arrival: EMS Limitations: no limitations - History of Present Illness Initial Comments: Jairo is a 40-year-old male very extensive past medical history most notable for poorly controlled diabetes, end-stage renal disease on dialysis Sunday. Patient presented to an outside hospital for evaluation of shortness of breath he was found to be hypoxic on examination heart failure secondary to fluid overload. Patient was treated with supplemental oxygen and Lasix likely makes very minimal urine. He is transferred to our facility for dialysis. Patient was also noted be profoundly hyper glycemic with a glucose of 600 at outside hospital he was treated with insulin, upon arrival here glucose is improved to 360s - Related Data Home Medications Medication Instructions Recorded Confirmed Pravastatin Sodium [Pravachol] 40 mg PO HS 12/26/15 05/01/19 ARIPiprazole [Abilify] 10 mg PO HS 09/07/16 05/01/19 Omeprazole [PriLOSEC] 40 mg PO HS 09/07/16 05/01/19 Thera M Plus 1 tab PO HS 08/05/18 05/01/19 tiZANidine [Zanaflex] 2 mg PO Q8HR PRN 08/05/18 05/01/19 amLODIPine [Norvasc] 10 mg PO HS 11/14/18 05/01/19 carvediloL [Coreg] 6.25 mg PO BID 11/14/18 05/01/19 Dicyclomine [Bentyl] 20 mg PO Q6H PRN 02/28/19 05/01/19 Glucagon Emergency Kit 1 mg IM ONCE PRN 02/28/19 05/01/19 Insulin Aspart [NovoLOG] See Protocol SQ ACHS 02/28/19 05/01/19 Insulin Degludec [Tresiba] 30 unit SQ HS 02/28/19 05/01/19 Ondansetron Odt [Zofran ODT] 4 mg PO Q8HR PRN 02/28/19 05/01/19 Desvenlafaxine Succinate [Pristiq] 100 mg PO HS 04/23/19 05/01/19 Hydrocodone/Acetaminophen [Secor 1 tab PO BID 04/23/19 05/01/19 7.5-325] Previous Rx's Medication Instructions Recorded hydrALAZINE HCL [Apresoline] 100 mg PO TID #90 tab 07/04/17 Calcium Acetate [PhosLo] 667 mg PO AC-TID #90 cap 11/15/18 cloNIDine HCL [Catapres] 0.1 mg PO TID #90 tab 03/07/19 Allergies Allergy/AdvReac Type Severity Reaction Status Date / Time lisinopril Allergy Unknown Verified 04/19/20 04:09 atorvastatin calcium AdvReac Nausea & Verified 04/19/20 04:09 [From Lipitor] Vomiting/muscle weakness losartan potassium AdvReac Nausea & Verified 04/19/20 04:09 [From Cozaar] Vomiting/hypotension tramadol AdvReac drowsiness Verified 04/19/20 04:09 Review of Systems ROS Statement: Those systems with pertinent positive or pertinent negative responses have been documented in the HPI. ROS Other: All systems not noted in ROS Statement are negative. Past Medical History Past Medical History: Asthma, Diabetes Mellitus, Dialysis, Eye Disorder, GERD/Reflux, GI Bleed, Hyperlipidemia, Hypertension, Pneumonia, Renal Disease, Vascular Disorder Additional Past Medical History / Comment(s): bilateral pleural effusions with R side worse-had R pleural pigtail cath/alteplase pleural instillation. Other hx: IDDM type I, diabetic since he was age 21, DKA, ESRD with hemodialysis on //, A/V shunt right lower arm, volume overload, chronic anemia, hiatal hernia, previous history of GI bleed secondary to peptic ulcer disease, bilateral pleural effusions/thoracentesis, cardiac tamponade with surgery, peripheral vascular disease, osteomyelitis L foot in 2012, diabetic foot ulcers and amputations, R eye retinal detachment/surgery, L eye cataract History of Any Multi-Drug Resistant Organisms: MRSA Date of last positivie culture/infection: 12/20/11 MDRO Source:: Left Foot Past Surgical History: Ventriculoperitoneal Shunt Additional Past Surgical History / Comment(s): A/V fistula R lower arm, ventriculo peritoneal shunt, renal needle bx, 2008 left great toe amp and 2013 2nd to 5th left foot toes amputated, L foot I&D, right chest mediport x2 with removal in 2010 and 2012. right eye retina reattachment sx 03/2015. EGD/colonoscopy, pericardial window for cardiac tampanode, pleural pigtail insertion/alteplase pleural instillation. Past Anesthesia/Blood Transfusion Reactions: No Reported Reaction Past Psychological History: Depression Smoking Status: Never smoker Past Alcohol Use History: None Reported, Rare Past Drug Use History: None Reported - Past Family History Mother Family Medical History: Hypertension Father Family Medical History: CVA/TIA, Diabetes Mellitus, Hypertension Additional Family Medical History / Comment(s): Father is at the age of 53yrs from a CVA. General Exam - General Exam Comments Initial Comments: Physical Exam GENERAL: Chronically ill-appearing gentleman on supplemental oxygen, no acute distress HENT: Normocephalic, Atraumatic. EYES: PERRL, EOMI PULMONARY: Unlabored respirations. CARDIOVASCULAR: RRR Warm and well perfused extremities One plus edema lower extremities ABDOMEN: Non-distended SKIN: No rashes or bruising : Deferred NEUROLOGIC: Alert and oriented Normal speech Normal gait MUSCULOSKELETAL: Moving all extremities with no apparent injury PSYCHIATRIC: No SI/HI Limitations: no limitations Course Vital Signs 04/19/20 04:07 Temperature 98.2 F Pulse Rate 73 Respiratory 18 Rate Blood Pressure 160/93 O2 Sat by Pulse 93 L Oximetry Medical Decision Making - Medical Decision Making Patient care was discussed with transferring physician, 40-year-old gentleman heart failure secondary to fluid overload in need of dialysis Patient stable upon arrival, repeat blood glucose okay Patient's home medications and consult to nephrology were ordered patient placed in observation for dialysis - Lab Data Lab Results 04/19/20 Range/Units 05:07 POC Glucose (mg/dL) 373 H (75-99) mg/dL POC Glu Director Foundation ID Arleen Henderson Disposition Clinical Impression: CHF (congestive heart failure), ESRD (end stage renal disease) on dialysis, Hyperglycemia Disposition: ADMITTED IP TO THIS HOSP Condition: Stable Referrals: Chad Trevino MD [Primary Care Provider] - 1-2 days
[2020-04-19 07:01] LABS: Glucose,Whole Blood 330 mg/dL (75-99)
[2020-04-19 07:55] LABS: Glucose,Whole Blood 286 mg/dL (75-99)
[2020-04-19] MEDS: INSULIN ASPART (NovoLOG) 100 UNIT/ML VIAL SQ SCH ×4 (08:07→20:59)
[2020-04-19] MEDS: carvediloL 6.25 MG TAB PO SCH ×2 (08:07→21:00)
[2020-04-19] MEDS: HYDROcodone/APAP 7.5-325MG 1 EACH TAB PO SCH ×2 (08:07→21:00)
[2020-04-19] MEDS: cloNIDine HCL 0.1 MG TAB PO SCH ×3 (08:07→21:00)
[2020-04-19] MEDS: hydrALAZINE HCL 50 MG TAB PO SCH ×3 (08:07→21:00)
[2020-04-19 11:36] LABS: Glucose,Whole Blood 92 mg/dL (75-99)
--- NOTE | 2020-04-19 11:39 | P.NPCON ---
History of Present Illness - Reason for Consult end stage renal disease - History of Present Illness reason for consultation: End-stage renal disease History of present illness: Patient is a 40-year-old male seen in renal consultation for end-stage renal disease. He is maintained on hemodialysis on Sunday schedule. Patient presented to [facility] due to shortness of breath. Imaging revealed fluid overload. Patient's blood sugar was also above 600 for which he received IV insulin. He was subsequently transferred here for urgent hemodialysis. Patient's blood sugars better controlled. Blood pressure on the higher side but is gradually improving. He is tolerating dialysis well. Trying for 4 L ultrafiltration. No fever or chills. No vomiting or diarrhea. no abdominal pain. currently on 2 L is cannula. Vital signs are stable. General: The patient appeared well nourished and normally developed. HEENT: Head exam is unremarkable. Neck is without jugular venous distension. LUNGS: Breath sounds decreased. HEART: regular rate and rhythm. ABDOMEN: soft, nontender. EXTREMITITES: 1+ edema. Past Medical History Past Medical History: Asthma, Diabetes Mellitus, Dialysis, Eye Disorder, GERD/Reflux, GI Bleed, Hyperlipidemia, Hypertension, Pneumonia, Renal Disease, Vascular Disorder Additional Past Medical History / Comment(s): Bilateral pleural effusions with R side worse-bilateral thoracentisis/ R pleural pigtail cath/R side alteplase pleural instillation/decortication/cryoablation, cardiac tamponade with window, IDDM type I, diabetic since he was age 21, DKA, ESRD with hemodialysis on M//, A/V shunt right lower arm, mineral bone disease, volume overload, chronic anemia, hiatal hernia, previous history of GI bleed secondary to peptic ulcer disease, peripheral vascular disease, low back pain/DDD, osteomyelitis L foot in 2012, diabetic foot ulcers and amputations, R eye retinal detachment/surgery- vision poor, L eye cataract/blindness History of Any Multi-Drug Resistant Organisms: MRSA Date of last positivie culture/infection: 12/20/11 MDRO Source:: Left Foot Past Surgical History: Ventriculoperitoneal Shunt Additional Past Surgical History / Comment(s): A/V fistula R lower arm, renal needle bx, 2008 left great toe amp and 2013 2nd to 5th left foot toes amputated, L foot I&D, right chest mediport x2 with removal in 2010 and 2012. right eye retina reattachment sx 03/2015. EGD/colonoscopy, pericardial window for cardiac tampanode, bilateral thoracentesis, R pleural pigtail insertion/alteplase pleural instillation/thoracotomy with decortication and cryoablation, EGD, colonoscopy. Past Anesthesia/Blood Transfusion Reactions: No Reported Reaction Additional Past Anesthesia/Blood Transfusion Reaction / Comment(s): Pt states he has received blood in past without reaction. Smoking Status: Never smoker - Past Family History Mother Family Medical History: Hypertension Father Family Medical History: CVA/TIA, Diabetes Mellitus, Hypertension Additional Family Medical History / Comment(s): Father is at the age of 53yrs from a CVA. Medications and Allergies Home Medications Medication Instructions Recorded Confirmed Type Pravastatin Sodium [Pravachol] 40 mg PO HS 12/26/15 04/19/20 History Thera M Plus 1 tab PO HS 08/05/18 04/19/20 History amLODIPine [Norvasc] 10 mg PO DAILY 11/14/18 04/19/20 History Calcium Acetate [PhosLo] 667 mg PO AC-TID #90 cap 11/15/18 04/19/20 Rx Dicyclomine [Bentyl] 20 mg PO QID PRN 02/28/19 04/19/20 History Glucagon Emergency Kit 1 mg IM ONCE PRN 02/28/19 04/19/20 History Insulin Aspart [NovoLOG] See Protocol SQ AC-TID 02/28/19 04/19/20 History Insulin Degludec [Tresiba] 30 unit SQ HS 02/28/19 04/19/20 History ARIPiprazole [Abilify] 15 mg PO HS 04/19/20 04/19/20 History Carvedilol [Coreg] 12.5 mg PO BID 04/19/20 04/19/20 History Gabapentin [Neurontin] 100 mg PO HS 04/19/20 04/19/20 History HYDROcodone/APAP 5-325MG [[place] 1 tab PO BID 04/19/20 04/19/20 History 5-325] Loperamide [Imodium] 2 - 4 mg PO Q8H PRN 04/19/20 04/19/20 History Megestrol 125mg/Ml 15 ml PO DAILY 04/19/20 04/19/20 History Sertraline [Zoloft] 50 mg PO DAILY 04/19/20 04/19/20 History hydrALAZINE HCL [Apresoline] 100 mg PO TID 04/19/20 04/19/20 History Allergies Allergy/AdvReac Type Severity Reaction Status Date / Time lisinopril Allergy Unknown Verified 04/19/20 06:22 atorvastatin calcium AdvReac Nausea & Verified 04/19/20 06:22 [From Lipitor] Vomiting/muscle weakness losartan potassium AdvReac Nausea & Verified 04/19/20 06:22 [From Cozaar] Vomiting/hypotension tramadol AdvReac drowsiness Verified 04/19/20 06:22 Physical Exam Vitals: Vital Signs Temp Pulse Pulse Resp BP BP Pulse Ox 04/19/20 10:58 97.9 F 64 18 155/84 97 04/19/20 08:00 98.2 F 74 16 190/94 96 04/19/20 07:04 98.0 F 66 17 173/89 94 L 04/19/20 05:57 80 17 178/98 95 04/19/20 04:07 98.2 F 73 18 160/93 93 L Intake and Output 04/18/20 04/19/20 04/19/20 22:59 06:59 14:59 Other: Weight 80 kg 80 kg Assessment and Plan Plan: assessment: 1. End-stage renal disease maintained on hemodialysis on Sunday schedule. 2. Volume overload. 3. Hypertension with chronic kidney disease. Partially volume sensitive. 4. Insulin-dependent diabetes mellitus. plan: Currently seen while undergoing hemodialysis. Trying for 4 L ultrafiltration. Maintain current antihypertensives. Tight blood sugar control. Thank you for the consultation.I will continue to follow the patient with you during his hospital stay.
[2020-04-19 16:30] LABS: Basophils % (A) 1 %; Eosinophils # (A) 0.4 k/uL (0-0.7); Eosinophils % (A) 6 %; HCT 31.5 % (39.0-53.0); HGB 10.1 gm/dL (13.0-17.5); Hypochromasia Slight; Lymphocytes # (A) 0.9 k/uL (1.0-4.8); Lymphocytes % (A) 11 %; MCH 28.6 pg (25.0-35.0); MCHC 32.2 g/dL (31.0-37.0); Mean Platelet Volume 8.9; Monocytes # (A) 0.4 k/uL (0-1.0); Monocytes % (A) 5 %; Neutrophils % (A) 77 %; Platelet Count 231 k/uL (150-450); RBC 3.54 m/uL (4.30-5.90); RDW 14.1 % (11.5-15.5); WBC 7.9 k/uL (3.8-10.6)
[2020-04-19 16:55] LABS: Calcium 8.4 mg/dL (8.4-10.2); Potassium 4.6 mmol/L (3.5-5.1)
[2020-04-19 17:15] LABS: Glucose,Whole Blood 152 mg/dL (75-99)
[2020-04-19 20:19] LABS: Glucose,Whole Blood 310 mg/dL (75-99)
[2020-04-19] MEDS: PANTOPRAZOLE 40 MG TABLET PO SCH (21:00)
[2020-04-19] MEDS: amLODIPine 10 MG TAB PO SCH (21:00)
--- NOTE | 2020-04-20 00:46 | P.HPIM ---
History of Present Illness H&P Date: 04/19/20 Chief Complaint: Transfer from [facility] for urgent dialysis Mr. Howell is a 40-year-old male with a past medical history of poorly controlled diabetes mellitus, ESRD on hemodialysis, GERD, hypertension, hyperlipidemia, chronic anemia, peripheral vascular disease, osteomyelitis of the left foot in 2012, diabetic foot ulcers and amputation coming into the emergency department with a chief complaint of difficulty in breathing. Patient states that he is supposed to go to his dialysis but he was very short of breath and so went to [facility]. He had imaging done there showing fluid overload and also his blood sugar was above 600 for which he received IV insulin. Eventually the patient was transferred to [facility] for urgent hemodialysis. At the time of admission patient's blood sugar was around 300s. Patient states that he did not miss his dialysis session. He makes minimal urine. He states that he was compliant with his diet and fluid intake. Dr. Sarkar from nephrology evaluated the patient and he had 4 L of ultrafiltration done today. Post dialysis patient was lying comfortably in the bed and appears to be in no acute distress. He does not have any active complaints. Review of Systems REVIEW OF SYSTEMS: CONSTITUTIONAL: No fever, no malaise, no fatigue. HEENT: No recent visual problems or hearing problems. Denied any sore throat. CARDIOVASCULAR: No orthopnea, PND, no palpitations, no syncope. PULMONARY: No shortness of breath, no cough, no hemoptysis. GASTROINTESTINAL: No diarrhea, no nausea,no abdominal pain. NEUROLOGICAL: No headaches, no weakness, no numbness. HEMATOLOGICAL: Denies any bleeding or petechiae. GENITOURINARY: Denies any burning micturition, frequency, or urgency. MUSCULOSKELETAL/RHEUMATOLOGICAL: No joint swelling or aches ENDOCRINE: Denies any polyuria or polydipsia. The rest of the 13-point review of systems is negative. Past Medical History Past Medical History: Asthma, Diabetes Mellitus, Dialysis, Eye Disorder, GERD/Reflux, GI Bleed, Hyperlipidemia, Hypertension, Pneumonia, Renal Disease, Vascular Disorder Additional Past Medical History / Comment(s): Bilateral pleural effusions with R side worse-bilateral thoracentisis/ R pleural pigtail cath/R side alteplase pleu ral instillation/decortication/cryoablation, cardiac tamponade with window, IDDM type I, diabetic since he was age 21, DKA, ESRD with hemodialysis on M/W/F, A/V shunt right lower arm, mineral bone disease, volume overload, chronic anemia, hiatal hernia, previous history of GI bleed secondary to peptic ulcer disease, peripheral vascular disease, low back pain/DDD, osteomyelitis L foot in 2012, diabetic foot ulcers and amputations, R eye retinal detachment/surgery-vision poor, L eye cataract/blindness History of Any Multi-Drug Resistant Organisms: MRSA Date of last positivie culture/infection: 12/20/11 MDRO Source:: Left Foot Past Surgical History: Ventriculoperitoneal Shunt Additional Past Surgical History / Comment(s): A/V fistula R lower arm, renal needle bx, 2008 left great toe amp and 2013 2nd to 5th left foot toes amputated, L foot I&D, right chest mediport x2 with removal in 2010 and 2012. right eye retina reattachment sx 03/2015. EGD/colonoscopy, pericardial window for cardiac tampanode, bilateral thoracentesis, R pleural pigtail insertion/alteplase pl eural instillation/thoracotomy with decortication and cryoablation, EGD, colonoscopy. Past Anesthesia/Blood Transfusion Reactions: No Reported Reaction Additional Past Anesthesia/Blood Transfusion Reaction / Comment(s): Pt states he has received blood in past without reaction. Smoking Status: Never smoker - Past Family History Mother Family Medical History: Hypertension Father Family Medical History: CVA/TIA, Diabetes Mellitus, Hypertension Additional Family Medical History / Comment(s): Father is at the age of 53yrs from a CVA. Medications and Allergies Home Medications Medication Instructions Recorded Confirmed Type Pravastatin Sodium [Pravachol] 40 mg PO HS 12/26/15 04/19/20 History Thera M Plus 1 tab PO HS 08/05/18 04/19/20 History amLODIPine [Norvasc] 10 mg PO DAILY 11/14/18 04/19/20 History Calcium Acetate [PhosLo] 667 mg PO AC-TID #90 cap 11/15/18 04/19/20 Rx Dicyclomine [Bentyl] 20 mg PO QID PRN 02/28/19 04/19/20 History Glucagon Emergency Kit 1 mg IM ONCE PRN 02/28/19 04/19/20 History Insulin Aspart [NovoLOG] See Protocol SQ AC-TID 02/28/19 04/19/20 History Insulin Degludec [Tresiba] 30 unit SQ HS 02/28/19 04/19/20 History ARIPiprazole [Abilify] 15 mg PO HS 04/19/20 04/19/20 History Carvedilol [Coreg] 12.5 mg PO BID 04/19/20 04/19/20 History Gabapentin [Neurontin] 100 mg PO HS 04/19/20 04/19/20 History HYDROcodone/APAP 5-325MG [[place] 1 tab PO BID 04/19/20 04/19/20 History 5-325] Loperamide [Imodium] 2 - 4 mg PO Q8H PRN 04/19/20 04/19/20 History Megestrol 125mg/Ml 15 ml PO DAILY 04/19/20 04/19/20 History Sertraline [Zoloft] 50 mg PO DAILY 04/19/20 04/19/20 History hydrALAZINE HCL [Apresoline] 100 mg PO TID 04/19/20 04/19/20 History Allergies Allergy/AdvReac Type Severity Reaction Status Date / Time lisinopril Allergy Unknown Verified 04/19/20 06:22 atorvastatin calcium AdvReac Nausea & Verified 04/19/20 06:22 [From Lipitor] Vomiting/muscle weakness losartan potassium AdvReac Nausea & Verified 04/19/20 06:22 [From Cozaar] Vomiting/hypotension tramadol AdvReac drowsiness Verified 04/19/20 06:22 Physical Exam Vitals: Vital Signs Temp Pulse Pulse Resp BP BP Pulse Ox 04/19/20 20:50 99.4 F 78 16 188/94 94 L 04/19/20 18:55 98.2 F 70 18 166/93 04/19/20 18:21 169/85 04/19/20 16:49 93 L 04/19/20 16:00 18 04/19/20 15:00 98.6 F 77 18 181/90 98 04/19/20 11:40 64 18 04/19/20 10:58 97.9 F 64 18 155/84 97 04/19/20 08:00 98.2 F 74 16 190/94 96 04/19/20 07:04 98.0 F 66 17 173/89 94 L 04/19/20 05:57 80 17 178/98 95 04/19/20 04:07 98.2 F 73 18 160/93 93 L Intake and Output 04/19/20 04/19/20 04/19/20 06:59 14:59 22:59 Intake Total 430 150 Output Total 4600 Balance 430 -4450 Intake: Oral 430 150 Output: Urine 600 Hemodialysis 4000 Other: # Voids 0 Weight 80 kg 80 kg PHYSICAL EXAMINATION: GENERAL: not in any acute distress. HEENT: Pupils are round and equally reacting to light. EOMI. mild scleral icterus. No conjunctival pallor. Normocephalic, atraumatic. CARDIOVASCULAR: S 1 , S 2 heard. No additional sounds. PULMONARY: Bilateral breath sounds are positive. No wheeze or crackles. ABDOMEN: Soft, nontender, nondistended, normoactive bowel sounds. No palpable organomegaly. MUSCULOSKELETAL: No joint swelling or deformity. EXTREMITIES: No cyanosis, clubbing, or pedal edema. NEUROLOGICAL: AAO x 3Gross neurological examination did not reveal any focal deficits. Results CBC & Chem 7: 04/19/20 16:05 04/19/20 16:05 Labs: Abnormal Lab Results - Last 24 Hours (Table) 04/19/20 04/19/20 04/19/20 Range/Units 05:07 06:59 07:53 RBC (4.30-5.90) m/uL Hgb (13.0-17.5) gm/dL Hct (39.0-53.0) % Lymphocytes # (1.0-4.8) k/uL Sodium (137-145) mmol/L BUN (9-20) mg/dL Creatinine (0.66-1.25) mg/dL Glucose (74-99) mg/dL POC Glucose (mg/dL) 373 H 330 H 286 H (75-99) mg/dL 04/19/20 04/19/20 04/19/20 Range/Units 16:05 16:05 17:11 RBC 3.54 L (4.30-5.90) m/uL Hgb 10.1 L (13.0-17.5) gm/dL Hct 31.5 L (39.0-53.0) % Lymphocytes # 0.9 L (1.0-4.8) k/uL Sodium 134 L (137-145) mmol/L BUN 24 H (9-20) mg/dL Creatinine 4.22 H (0.66-1.25) mg/dL Glucose 149 H (74-99) mg/dL POC Glucose (mg/dL) 152 H (75-99) mg/dL 04/19/20 Range/Units 20:18 RBC (4.30-5.90) m/uL Hgb (13.0-17.5) gm/dL Hct (39.0-53.0) % Lymphocytes # (1.0-4.8) k/uL Sodium (137-145) mmol/L BUN (9-20) mg/dL Creatinine (0.66-1.25) mg/dL Glucose (74-99) mg/dL POC Glucose (mg/dL) 310 H (75-99) mg/dL Thrombosis Risk Factor Assmnt - Choose All That Apply Any of the Below Risk Factors Present?: Yes Each Factor Represents 1 point: Age 41-60 years, Heart failure (<1month) Other Risk Factors: No Other congenital or acquired thrombophilia - If yes, enter type in comment: No Thrombosis Risk Factor Assessment Total Risk Factor Score: 2 Thrombosis Risk Factor Assessment Level: Low Risk Assessment and Plan Assessment: ASSESSMENT Acute hypoxic respiratory failure secondary to fluid overload ESRD on hemodialysis Hypertension Hyperlipidemia Poorly controlled type 1 diabetes mellitus Diabetic retinopathy Diabetic neuropathy Peripheral vascular disease with amputation of left foot digits GERD Chronic anemia History of GI bleed PLAN: Patient had dialysis done today, after dialysis patient states that his difficulty breathing is improved. He is comfortably lying in bed. Patient has been restarted on his home medications. Further recommendations to follow depending on the progress of the patient.
[2020-04-20 06:15] LABS: Glucose,Whole Blood 288 mg/dL (75-99)
[2020-04-20] MEDS: INSULIN ASPART (NovoLOG) 100 UNIT/ML VIAL SQ SCH ×4 (06:29→20:53)
[2020-04-20] MEDS: HYDROcodone/APAP 7.5-325MG 1 EACH TAB PO SCH ×2 (09:28→20:54)
[2020-04-20] MEDS: carvediloL 6.25 MG TAB PO SCH ×2 (09:28→20:54)
[2020-04-20] MEDS: cloNIDine HCL 0.1 MG TAB PO SCH ×3 (09:28→20:53)
[2020-04-20] MEDS: hydrALAZINE HCL 50 MG TAB PO SCH ×3 (09:28→20:54)
[2020-04-20 10:10] VITALS: BMI 21.7
[2020-04-20] MEDS: SERTRALINE 50 MG TAB PO SCH (10:28)
[2020-04-20 12:01] LABS: Glucose,Whole Blood 315 mg/dL (75-99)
--- NOTE | 2020-04-20 12:45 | P.PN ---
Subjective Patient is seen in follow-up for end-stage renal disease. He is maintained on hemodialysis on Sunday schedule. Blood sugar 315 this morning. Tolerated dialysis well yesterday with 4 L ultrafiltration. Feels better today. Wants to go home. Vital signs are stable. General: The patient appeared well nourished and normally developed. HEENT: Head exam is unremarkable. Neck is without jugular venous distension. LUNGS: Lungs are clear to auscultation and percussion. Breath sounds decreased. HEART: Rate and Rhythm are regular. ABDOMEN: Soft, nontender. EXTREMITITES: No edema. Toes amputation noted. Objective - Vital Signs Vital signs: Vital Signs Temp 98.9 F 04/20/20 03:36 Pulse 74 04/20/20 03:36 Resp 16 04/20/20 03:36 BP 163/87 04/20/20 03:36 Pulse Ox 94 L 04/20/20 03:36 Intake & Output 04/19/20 04/20/20 04/20/20 18:59 06:59 18:59 Intake Total 430 150 220 Output Total 4600 0 Balance -4170 150 220 Weight 80 kg 77 kg 77 kg Intake: Oral 430 150 220 Output: Urine 600 0 Hemodialysis 4000 Other: # Voids 2 1 - Labs CBC & Chem 7: 04/19/20 16:05 04/19/20 16:05 Labs: Abnormal Lab Results - Last 24 Hours (Table) 04/19/20 04/19/20 04/19/20 Range/Units 16:05 16:05 17:11 RBC 3.54 L (4.30-5.90) m/uL Hgb 10.1 L (13.0-17.5) gm/dL Hct 31.5 L (39.0-53.0) % Lymphocytes # 0.9 L (1.0-4.8) k/uL Sodium 134 L (137-145) mmol/L BUN 24 H (9-20) mg/dL Creatinine 4.22 H (0.66-1.25) mg/dL Glucose 149 H (74-99) mg/dL POC Glucose (mg/dL) 152 H (75-99) mg/dL 04/19/20 04/20/20 04/20/20 Range/Units 20:18 06:14 11:59 RBC (4.30-5.90) m/uL Hgb (13.0-17.5) gm/dL Hct (39.0-53.0) % Lymphocytes # (1.0-4.8) k/uL Sodium (137-145) mmol/L BUN (9-20) mg/dL Creatinine (0.66-1.25) mg/dL Glucose (74-99) mg/dL POC Glucose (mg/dL) 310 H 288 H 315 H (75-99) mg/dL Assessment and Plan Plan: assessment: 1. End-stage renal disease maintained on hemodialysis on Sunday schedule. 2. Volume overload. Improved post ultrafiltration. 3. Hypertension with chronic kidney disease. Partially volume sensitive. Better but blood pressure still on the higher side. 4. Insulin-dependent diabetes mellitus. Plan: Hemodialysis tomorrow. Maintain current antihypertensives. Increase clonidine 0.2 mg 3 times daily. Tight blood sugar control.
[2020-04-20] MEDS: CALCIUM ACETATE 667 MG TAB PO SCH ×2 (13:27→18:10)
[2020-04-20 16:42] LABS: Glucose,Whole Blood 278 mg/dL (75-99)
[2020-04-20 20:31] LABS: Glucose,Whole Blood 247 mg/dL (75-99)
[2020-04-20] MEDS: PANTOPRAZOLE 40 MG TABLET PO SCH (20:54)
[2020-04-20] MEDS: amLODIPine 10 MG TAB PO SCH (20:54)
[2020-04-20] MEDS ORDERED: ARIPiprazole 15 MG TAB PO SCH (21:00)
[2020-04-20] MEDS ORDERED: INSULIN DETEMIR (LEVEMIR) 100 UNIT/ML SYR SQ SCH (21:00)
[2020-04-20] MEDS ORDERED: ZOLPIDEM 5 MG TAB PO PRN (21:19)
[2020-04-20 22:29] LABS: Glucose,Whole Blood 199 mg/dL (75-99)
--- NOTE | 2020-04-20 23:43 | P.PN ---
Subjective Progress Note Date: 04/20/20 Principal diagnosis: Hyperkalemia Mr. Howell is a 40-year-old male with a past medical history of poorly controlled diabetes mellitus, ESRD on hemodialysis, GERD, hypertension, hyperlipidemia, chronic anemia, peripheral vascular disease, osteomyelitis of the left foot in 2012, diabetic foot ulcers and amputation coming into the emergency department with a chief complaint of difficulty in breathing. Patient states that he is supposed to go to his dialysis but he was very short of breath and so went to [facility]. He had imaging done there showing fluid overload and also his blood sugar was above 600 for which he received IV insulin. Eventually the patient was transferred to [facility] for urgent hemodialysis. At the time of admission patient's blood sugar was around 300s. Patient states that he did not miss his dialysis session. He makes minimal urine. He states that he was compliant with his diet and fluid intake. Dr. Sarkar from nephrology evaluated the patient and he had 4 L of ultrafiltration done today. On 04/20/2020 -patient is comfortably lying in bed appears to be in no acute distress. On reviewing the patient's vitals his blood pressure is on the higher side so Dr. Carmen increased his clonidine to 0.2 mg twice daily to 3 times daily. Patient does not have any active complaints. He states that he wants to go home. Active Medications Hydrocodone Bitart/Acetaminophen ([place] 7.5-325) 1 each PO BID [facility] Last Admin: 04/20/20 20:54 Dose: 1 each Documented by: Amlodipine Besylate (Norvasc) 10 mg PO [facility] Last Admin: 04/20/20 20:54 Dose: 10 mg Documented by: Aripiprazole (Abilify) 15 mg PO [facility] Last Admin: 04/20/20 20:54 Dose: 15 mg Documented by: Calcium Acetate (Phoslo) 667 mg PO AC-TID [facility] Last Admin: 04/20/20 18:10 Dose: 667 mg Documented by: Carvedilol (Coreg) 6.25 mg PO BID [facility] Last Admin: 04/20/20 20:54 Dose: 6.25 mg Documented by: Clonidine (Catapres) 0.2 mg PO TID [facility] Last Admin: 04/20/20 20:53 Dose: 0.2 mg Documented by: Dicyclomine HCl (Bentyl) 20 mg PO Q6H PRN PRN Reason: STOMACH PAIN Hydralazine HCl (Apresoline) 100 mg PO TID [facility] Last Admin: 04/20/20 20:54 Dose: 100 mg Documented by: Insulin Aspart (Novolog) 0 unit SQ [facility]; Protocol Last Admin: 04/20/20 20:53 Dose: 4 unit Documented by: Insulin Detemir (Levemir) 20 unit SQ [facility] Last Admin: 04/20/20 20:53 Dose: 20 unit Documented by: Naloxone HCl (Narcan) 0.2 mg IV Q2M PRN PRN Reason: Opioid Reversal Ondansetron HCl (Zofran Odt) 4 mg PO Q8HR PRN PRN Reason: Nausea And Vomiting Pantoprazole Sodium (Protonix) 40 mg PO [facility] Last Admin: 04/20/20 20:54 Dose: 40 mg Documented by: Sertraline HCl (Zoloft) 50 mg PO DAILY [facility] Last Admin: 04/20/20 10:28 Dose: 50 mg Documented by: Tizanidine HCl (Zanaflex) 2 mg PO Q8HR PRN PRN Reason: Muscle Spasm Zolpidem Tartrate (Ambien) 5 mg PO HS PRN PRN Reason: Insomnia Last Admin: 04/20/20 23:21 Dose: 5 mg Documented by: Objective - Vital Signs Vital signs: Vital Signs Temp 98.4 F 04/20/20 20:46 Pulse 67 04/20/20 20:46 Resp 16 04/20/20 20:46 BP 184/93 04/20/20 20:46 Pulse Ox 95 04/20/20 20:46 Intake & Output 04/20/20 04/20/20 04/21/20 06:59 18:59 06:59 Intake Total 150 340 Output Total 0 0 Balance 150 340 Weight 77 kg 77 kg Intake: Oral 150 340 Output: Urine 0 0 Other: # Voids 1 1 - Exam PHYSICAL EXAMINATION: GENERAL: not in any acute distress. HEENT: Pupils are round and equally reacting to light. EOMI. CARDIOVASCULAR: S 1 , S 2 heard. No additional sounds. PULMONARY: Bilateral breath sounds are positive. No wheeze or crackles. ABDOMEN: Soft, nontender, nondistended, normoactive bowel sounds. No palpable organomegaly. MUSCULOSKELETAL: No joint swelling or deformity. EXTREMITIES: No cyanosis, clubbing, or pedal edema. NEUROLOGICAL: AAO x 3, Gross neurological examination did not reveal any focal deficits. - Labs CBC & Chem 7: 04/19/20 16:05 04/19/20 16:05 Labs: Abnormal Lab Results - Last 24 Hours (Table) 04/20/20 04/20/20 04/20/20 Range/Units 06:14 11:59 16:40 POC Glucose (mg/dL) 288 H 315 H 278 H (75-99) mg/dL 04/20/20 04/20/20 Range/Units 20:29 22:24 POC Glucose (mg/dL) 247 H 199 H (75-99) mg/dL Assessment and Plan Assessment: ASSESSMENT Acute hypoxic respiratory failure secondary to fluid overload ESRD on hemodialysis Hypertension Hyperlipidemia Poorly controlled type 1 diabetes mellitus Diabetic retinopathy Diabetic neuropathy Peripheral vascular disease with amputation of left foot digits GERD Chronic anemia History of GI bleed PLAN: Patient had dialysis done today, after dialysis patient states that his difficulty breathing is improved. He is comfortably lying in bed. On reviewing the patient's vitals his blood pressure is on the higher side so Dr. Sarkar increased his clonidine to 0.2 mg twice daily to 3 times daily. Further recommendations to follow depending on the progress of the patient.
[2020-04-21 02:43] LABS: Glucose,Whole Blood 58 mg/dL (75-99)
[2020-04-21 02:58] LABS: Glucose,Whole Blood 46 mg/dL (75-99)
[2020-04-21 03:18] LABS: Glucose,Whole Blood 48 mg/dL (75-99)
[2020-04-21 03:20] LABS: Glucose,Whole Blood 53 mg/dL (75-99)
[2020-04-21 03:36] LABS: Glucose,Whole Blood 96 mg/dL (75-99)
[2020-04-21 07:23] LABS: Glucose,Whole Blood 160 mg/dL (75-99)
[2020-04-21] MEDS: INSULIN ASPART (NovoLOG) 100 UNIT/ML VIAL SQ SCH ×2 (07:46→12:22)
[2020-04-21] MEDS: CALCIUM ACETATE 667 MG TAB PO SCH ×2 (07:47→12:23)
[2020-04-21] MEDS: hydrALAZINE HCL 50 MG TAB PO SCH (07:48)
[2020-04-21] MEDS: cloNIDine HCL 0.1 MG TAB PO SCH (07:48)
[2020-04-21] MEDS: carvediloL 6.25 MG TAB PO SCH (07:48)
[2020-04-21] MEDS: HYDROcodone/APAP 7.5-325MG 1 EACH TAB PO SCH (07:49)
[2020-04-21] MEDS: SERTRALINE 50 MG TAB PO SCH (07:51)
--- NOTE | 2020-04-21 11:09 | P.PN ---
Subjective Patient is seen in follow-up for end-stage renal disease. He is maintained on hemodialysis on Sunday schedule. Blood sugar 160 this morning. Feels better today. Wants to go home. No changes overnight. Vital signs are stable. General: The patient appeared well nourished and normally developed. HEENT: Head exam is unremarkable. Neck is without jugular venous distension. LUNGS: Lungs are clear to auscultation and percussion. Breath sounds decreased. HEART: Rate and Rhythm are regular. ABDOMEN: Soft, nontender. EXTREMITITES: No edema. Toes amputation noted. Objective - Vital Signs Vital signs: Vital Signs Temp 98.0 F 04/21/20 07:00 Pulse 67 04/21/20 07:00 Resp 18 04/21/20 07:00 BP 149/85 04/21/20 07:00 Pulse Ox 93 L 04/21/20 07:00 Intake & Output 04/20/20 04/21/20 04/21/20 18:59 06:59 18:59 Intake Total 340 Output Total 0 Balance 340 Weight 77 kg 80.4 kg Intake: Oral 340 Output: Urine 0 Other: # Voids 1 1 # Bowel Movements 2 - Labs CBC & Chem 7: 04/19/20 16:05 04/19/20 16:05 Labs: Abnormal Lab Results - Last 24 Hours (Table) 04/20/20 04/20/20 04/20/20 Range/Units 11:59 16:40 20:29 POC Glucose (mg/dL) 315 H 278 H 247 H (75-99) mg/dL 04/20/20 04/21/20 04/21/20 Range/Units 22:24 02:41 02:56 POC Glucose (mg/dL) 199 H 58 L 46 L (75-99) mg/dL 04/21/20 04/21/20 04/21/20 Range/Units 03:17 03:19 07:22 POC Glucose (mg/dL) 48 L 53 L 160 H (75-99) mg/dL Assessment and Plan Plan: assessment: 1. End-stage renal disease maintained on hemodialysis on Sunday schedule. 2. Volume overload. Improved post ultrafiltration. 3. Hypertension with chronic kidney disease. Partially volume sensitive. Better. 4. Insulin-dependent diabetes mellitus. Plan: Hemodialysis today. Maintain current antihypertensives. Tight blood sugar control. Stable to be discharged home from nephrology standpoint after dialysis today.
[2020-04-21 11:26] LABS: Glucose,Whole Blood 200 mg/dL (75-99)
[2020-04-21 15:29] VITALS: BP 137/65; PULSE 65; RESP 20; TEMP 97
--- NOTE | 2020-05-07 00:18 | P.DS ---
Providers Date of admission: 04/19/20 04:44 Expected date of discharge: 04/21/20 Attending physician: Zander Urias Consults: 04/19/20 04:42 Consult Physician Urgent Consulting Provider: Jojo Charles Consult Reason/Comments: needs dialysis for CHF Do you want consulting provider notified?: Yes, Notify in am Primary care physician: [facility] Hospital Course: HPI - Mr. Howell is a 40-year-old male with a past medical history of poorly controlled diabetes mellitus, ESRD on hemodialysis, GERD, hypertension, hyperlipidemia, chronic anemia, peripheral vascular disease, osteomyelitis of the left foot in 2012, diabetic foot ulcers and amputation coming into the emergency department with a chief complaint of difficulty in breathing. Patient states that he is supposed to go to his dialysis but he was very short of breath and so went to [facility]. He had imaging done there showing fluid overload and also his blood sugar was above 600 for which he received IV insulin. Eventually the patient was transferred to [facility] for urgent hemodialysis. At the time of admission patient's blood sugar was around 300s. Hospital course - Patient had dialysis done and after dialysis patient states that his difficulty breathing is improved. On reviewing the patient's vitals his blood pressure is on the higher side so Dr. Sarkar increased his clonidine to 0.2 mg twice daily to 3 times daily and his Corge dose was dereased to 6.25 mg BID, then his BP was under much better control and he was cleared by Nephrology to be discharged home. Pt is discharged home in a fair condition. DISCHARGE DIAGNOSIS Acute hypoxic respiratory failure secondary to fluid overload ESRD on hemodialysis Hypertension Hyperlipidemia Poorly controlled type 1 diabetes mellitus Diabetic retinopathy Diabetic neuropathy Peripheral vascular disease with amputation of left foot digits GERD Chronic anemia History of GI bleed Patient Condition at Discharge: Stable Plan - Discharge Summary Discharge Rx Participant: No New Discharge Prescriptions: New cloNIDine HCL [Catapres] 0.2 mg PO TID 30 Days #90 tab carvediloL [Coreg] 6.25 mg PO BID 30 Days #60 tab Continue Pravastatin Sodium [Pravachol] 40 mg PO HS Thera M Plus 1 tab PO HS amLODIPine [Norvasc] 10 mg PO DAILY Calcium Acetate [PhosLo] 667 mg PO AC-TID #90 cap Insulin Aspart [NovoLOG] See Protocol SQ AC-TID Dicyclomine [Bentyl] 20 mg PO QID PRN PRN Reason: Gi Upset Insulin Degludec [Tresiba] 30 unit SQ HS Glucagon Emergency Kit 1 mg IM ONCE PRN PRN Reason: HYPOGLYCEMIA EVENT Sertraline [Zoloft] 50 mg PO DAILY Megestrol 125mg/Ml 15 ml PO DAILY Loperamide [Imodium] 2 - 4 mg PO Q8H PRN PRN Reason: Loose Stool hydrALAZINE HCL [Apresoline] 100 mg PO TID HYDROcodone/APAP 5-325MG [[place] 5-325] 1 tab PO BID Gabapentin [Neurontin] 100 mg PO HS ARIPiprazole [Abilify] 15 mg PO HS Discontinued Carvedilol [Coreg] 12.5 mg PO BID Discharge Medication List Pravastatin Sodium [Pravachol] 40 mg PO HS 12/26/15 [History] Thera M Plus 1 tab PO HS 08/05/18 [History] amLODIPine [Norvasc] 10 mg PO DAILY 11/14/18 [History] Calcium Acetate [PhosLo] 667 mg PO AC-TID #90 cap 11/15/18 [Rx] Dicyclomine [Bentyl] 20 mg PO QID PRN 02/28/19 [History] Glucagon Emergency Kit 1 mg IM ONCE PRN 02/28/19 [History] Insulin Aspart [NovoLOG] See Protocol SQ AC-TID 02/28/19 [History] Insulin Degludec [Tresiba] 30 unit SQ HS 02/28/19 [History] ARIPiprazole [Abilify] 15 mg PO HS 04/19/20 [History] Gabapentin [Neurontin] 100 mg PO HS 04/19/20 [History] HYDROcodone/APAP 5-325MG [[place] 5-325] 1 tab PO BID 04/19/20 [History] Loperamide [Imodium] 2 - 4 mg PO Q8H PRN 04/19/20 [History] Megestrol 125mg/Ml 15 ml PO DAILY 04/19/20 [History] Sertraline [Zoloft] 50 mg PO DAILY 04/19/20 [History] hydrALAZINE HCL [Apresoline] 100 mg PO TID 04/19/20 [History] carvediloL [Coreg] 6.25 mg PO BID 30 Days #60 tab 04/21/20 [Rx] cloNIDine HCL [Catapres] 0.2 mg PO TID 30 Days #90 tab 04/21/20 [Rx] Follow up Appointment(s)/Referral(s): Jojo Charles MD [STAFF PHYSICIAN] - 1 Week Chad Trevino MD [Primary Care Provider] - 1-2 days Patient Instructions/Handouts: Heart Failure (DC), End Stage Kidney Disease (DC) Discharge Disposition: HOME SELF-CARE
== END 2020-04-21 16:02 | disposition home or self-care (01) ==
LOC: EC 04:05 → 3SCARD 04:44 → 4SSUR 04-20 22:18
PROVIDERS: ADMIT Hospitalist; ATTEND Hospitalist
DX: I13.2 Hypertensive heart and chronic kidney disease with heart failure and with stage 5 chronic kidney disease, or end stage renal disease (principal); N18.6 End stage renal disease; J96.01 Acute respiratory failure with hypoxia; E87.70 Fluid overload, unspecified; E78.5 Hyperlipidemia, unspecified; E10.65 Type 1 diabetes mellitus with hyperglycemia; E10.319 Type 1 diabetes mellitus with unspecified diabetic retinopathy without macular edema; E10.40 Type 1 diabetes mellitus with diabetic neuropathy, unspecified; E10.22 Type 1 diabetes mellitus with diabetic chronic kidney disease; I73.9 Peripheral vascular disease, unspecified; K21.9 Gastro-esophageal reflux disease without esophagitis; D63.1 Anemia in chronic kidney disease; I50.9 Heart failure, unspecified; J45.909 Unspecified asthma, uncomplicated; K44.9 Diaphragmatic hernia without obstruction or gangrene; H26.9 Unspecified cataract; M89.9 Disorder of bone, unspecified; E83.9 Disorder of mineral metabolism, unspecified; M51.9 Unspecified thoracic, thoracolumbar and lumbosacral intervertebral disc disorder; H54.62 Unqualified visual loss, left eye, normal vision right eye; Z99.2 Dependence on renal dialysis; Z79.899 Other long term (current) drug therapy; Z79.4 Long term (current) use of insulin; Z79.891 Long term (current) use of opiate analgesic; Z88.8 Allergy status to other drugs, medicaments and biological substances; Z88.5 Allergy status to narcotic agent; Z86.69 Personal history of other diseases of the nervous system and sense organs; Z87.19 Personal history of other diseases of the digestive system; Z87.01 Personal history of pneumonia (recurrent); Z87.09 Personal history of other diseases of the respiratory system; Z87.11 Personal history of peptic ulcer disease; Z98.890 Other specified postprocedural states; Z87.39 Personal history of other diseases of the musculoskeletal system and connective tissue; Z87.2 Personal history of diseases of the skin and subcutaneous tissue; Z89.412 Acquired absence of left great toe; Z89.422 Acquired absence of other left toe(s); Z86.14 Personal history of Methicillin resistant Staphylococcus aureus infection; Z98.2 Presence of cerebrospinal fluid drainage device; F32.9 Major depressive disorder, single episode, unspecified; Z82.49 Family history of ischemic heart disease and other diseases of the circulatory system; Z82.3 Family history of stroke; Z83.3 Family history of diabetes mellitus
CPT/HCPCS: 99285; 36415; 80048; 85025; G0257 ×2; G0378 ×4; 90935

== ENCOUNTER 2020-05-09 22:59 | Inpatient (IN) | payer MEDICARE, OTHER ==
--- NOTE | 2020-05-09 23:32 | ED ---
SOB HPI - General Chief Complaint: Shortness of Breath Stated Complaint: SOB Time Seen by Provider: 05/09/20 23:03 Source: patient, EMS Mode of arrival: EMS Limitations: no limitations - History of Present Illness Initial Comments: Jairo is a 40-year-old gentleman with end-stage renal disease on dialysis who presents the ER today as a transfer from an outside hospital. Patient presented to the outside hospital short of breath was noted to be hypoxic with an oxygen saturation of 80% on room air labs there revealed hyperglycemia without evidence of DKA with glucose greater than 600. Chest x-ray showed partial fluid overload. Patient is noted to be profoundly hypertensive he does have poorly controlled hypertension on multiple oral agents. She was treated with supplemental oxygen and transferred here, on arrival he reports he is feeling much better not as short of breath, oxygen saturation 90s on 4 L nasal cannula. - Related Data Home Medications Medication Instructions Recorded Confirmed Pravastatin Sodium [Pravachol] 40 mg PO HS 12/26/15 04/19/20 Thera M Plus 1 tab PO HS 08/05/18 04/19/20 amLODIPine [Norvasc] 10 mg PO DAILY 11/14/18 04/19/20 Dicyclomine [Bentyl] 20 mg PO QID PRN 02/28/19 04/19/20 Glucagon Emergency Kit 1 mg IM ONCE PRN 02/28/19 04/19/20 Insulin Aspart [NovoLOG] See Protocol SQ AC-TID 02/28/19 04/19/20 Insulin Degludec [Tresiba] 30 unit SQ HS 02/28/19 04/19/20 ARIPiprazole [Abilify] 15 mg PO HS 04/19/20 04/19/20 Gabapentin [Neurontin] 100 mg PO HS 04/19/20 04/19/20 HYDROcodone/APAP 5-325MG [[place] 1 tab PO BID 04/19/20 04/19/20 5-325] Loperamide [Imodium] 2 - 4 mg PO Q8H PRN 04/19/20 04/19/20 Megestrol 125mg/Ml 15 ml PO DAILY 04/19/20 04/19/20 Sertraline [Zoloft] 50 mg PO DAILY 04/19/20 04/19/20 hydrALAZINE HCL [Apresoline] 100 mg PO TID 04/19/20 04/19/20 Previous Rx's Medication Instructions Recorded Calcium Acetate [PhosLo] 667 mg PO AC-TID #90 cap 11/15/18 carvediloL [Coreg] 6.25 mg PO BID 30 Days #60 tab 04/21/20 cloNIDine HCL [Catapres] 0.2 mg PO TID 30 Days #90 tab 04/21/20 Allergies Allergy/AdvReac Type Severity Reaction Status Date / Time lisinopril Allergy Unknown Verified 05/09/20 23:09 atorvastatin calcium AdvReac Nausea & Verified 05/09/20 23:09 [From Lipitor] Vomiting/muscle weakness losartan potassium AdvReac Nausea & Verified 05/09/20 23:09 [From Cozaar] Vomiting/hypotension tramadol AdvReac drowsiness Verified 05/09/20 23:09 Review of Systems ROS Statement: Those systems with pertinent positive or pertinent negative responses have been documented in the HPI. ROS Other: All systems not noted in ROS Statement are negative. Past Medical History Past Medical History: Asthma, Diabetes Mellitus, Dialysis, Eye Disorder, GERD/Reflux, GI Bleed, Hyperlipidemia, Hypertension, Pneumonia, Renal Disease, Vascular Disorder Additional Past Medical History / Comment(s): Bilateral pleural effusions with R side worse-bilateral thoracentisis/ R pleural pigtail cath/R side alteplase pleural instillation/decortication/cryoablation, cardiac tamponade with window, IDDM type I, diabetic since he was age 21, DKA, ESRD with hemodialysis on M/W/F, A/V shunt right lower arm, mineral bone disease, volume overload, chronic anemia, hiatal hernia, previous history of GI bleed secondary to peptic ulcer disease, peripheral vascular disease, low back pain/DDD, osteomyelitis L foot in 2012, diabetic foot ulcers and amputations, R eye retinal detachment/surgery- vision poor, L eye cataract/blindness History of Any Multi-Drug Resistant Organisms: MRSA Date of last positivie culture/infection: 12/20/11 MDRO Source:: Left Foot Past Surgical History: Ventriculoperitoneal Shunt Additional Past Surgical History / Comment(s): A/V fistula R lower arm, renal needle bx, 2008 left great toe amp and 2013 2nd to 5th left foot toes amputated, L foot I&D, right chest mediport x2 with removal in 2010 and 2012. right eye retina reattachment sx 03/2015. EGD/colonoscopy, pericardial window for cardiac tampanode, bilateral thoracentesis, R pleural pigtail insertion/alteplase pleur al instillation/thoracotomy with decortication and cryoablation, EGD, colonoscopy. Past Anesthesia/Blood Transfusion Reactions: No Reported Reaction Additional Past Anesthesia/Blood Transfusion Reaction / Comment(s): Pt states he has received blood in past without reaction. Past Psychological History: Depression Smoking Status: Never smoker - Past Family History Mother Family Medical History: Hypertension Father Family Medical History: CVA/TIA, Diabetes Mellitus, Hypertension Additional Family Medical History / Comment(s): Father is at the age of 53yrs from a CVA. General Exam - General Exam Comments Initial Comments: Physical Exam GENERAL: Chronically ill appearing, appears older than stated age HENT: Normocephalic, Atraumatic. EYES: PERRL, EOMI PULMONARY: Crackles bilaterally CARDIOVASCULAR: RRR ABDOMEN: Soft and nontender with normal bowel sounds. SKIN: Skin is clear with no lesions or rashes and otherwise unremarkable. : Deferred NEUROLOGIC: Patient is alert and oriented x3. Moving all extremities spontaneously MUSCULOSKELETAL: Normal extremities with adequate strength and full range of motion. No lower extremity swelling or edema. No calf tenderness. PSYCHIATRIC: Normal psychiatric evaluation. Limitations: no limitations Course Vital Signs 05/09/20 05/10/20 05/10/20 23:01 00:08 01:08 Temperature 98.7 F Pulse Rate 80 Respiratory 18 24 Rate Blood Pressure 200/105 194/111 192/111 O2 Sat by Pulse 98 Oximetry 05/10/20 01:53 Temperature Pulse Rate 80 Respiratory 20 Rate Blood Pressure 197/112 O2 Sat by Pulse 96 Oximetry Medical Decision Making - Medical Decision Making The patient was seen and evaluated, history is obtained from the patient and review of outside medical record End-stage renal disease patient with fluid overload and shortness of breath, oxygen saturation's adequately on 4 L nasal cannula no indication for BiPAP at this time Repeat labs were obtained Patient's glucose remains poorly controlled IV insulin was ordered Insulin sliding scale ordered Patient be admitted to the hospital for further oxygen therapy, dialysis in the morning monitoring of glucose Dose of patient's home oral antihypertensives was ordered Patient's home medications were ordered Renal diet was ordered Patient admitted in stable condition - Lab Data Result diagrams: 05/09/20 23:45 05/09/20 23:45 Lab Results 05/09/20 05/09/20 05/09/20 Range/Units 23:33 23:45 23:45 WBC 8.7 (3.8-10.6) k/uL RBC 3.11 L (4.30-5.90) m/uL Hgb 8.7 L (13.0-17.5) gm/dL Hct 28.3 L (39.0-53.0) % MCV 91.2 (80.0-100.0) fL MCH 27.9 (25.0-35.0) pg MCHC 30.6 L (31.0-37.0) g/dL RDW 14.3 (11.5-15.5) % Plt Count 252 (150-450) k/uL Neutrophils % 79 % Lymphocytes % 11 % Monocytes % 5 % Eosinophils % 3 % Basophils % 1 % Neutrophils # 6.8 (1.3-7.7) k/uL Lymphocytes # 1.0 (1.0-4.8) k/uL Monocytes # 0.4 (0-1.0) k/uL Eosinophils # 0.3 (0-0.7) k/uL Basophils # 0.1 (0-0.2) k/uL Hypochromasia Moderate VBG pH (7.31-7.41) VBG pCO2 (37-51) mmHg VBG HCO3 (24-28) mmol/L Sodium 125 L (137-145) mmol/L Potassium 4.3 (3.5-5.1) mmol/L Chloride 87 L (98-107) mmol/L Carbon Dioxide 25 (22-30) mmol/L Anion Gap 13 mmol/L BUN 58 H (9-20) mg/dL Creatinine 6.10 H (0.66-1.25) mg/dL Est GFR (CKD-EPI)AfAm 12 (>60 ml/min/1.73 sqM) Est GFR (CKD-EPI)NonAf 10 (>60 ml/min/1.73 sqM) Glucose 657 H* (74-99) mg/dL POC Glucose (mg/dL) >600 H (75-99) mg/dL POC Glu Behavioral Health Clinician ID Fetterly, Radha Plasma Lactic Acid Devendra (0.7-2.0) mmol/L Calcium 8.4 (8.4-10.2) mg/dL Magnesium 2.4 H (1.6-2.3) mg/dL Total Bilirubin 0.4 (0.2-1.3) mg/dL AST 20 (17-59) U/L ALT 14 (4-49) U/L Alkaline Phosphatase 96 (38-126) U/L Troponin I (0.000-0.034) ng/mL Total Protein 5.6 L (6.3-8.2) g/dL Albumin 3.7 (3.5-5.0) g/dL Acetone, Qual Negative (Negative) 05/09/20 05/09/20 05/09/20 Range/Units 23:45 23:45 23:45 WBC (3.8-10.6) k/uL RBC (4.30-5.90) m/uL Hgb (13.0-17.5) gm/dL Hct (39.0-53.0) % MCV (80.0-100.0) fL MCH (25.0-35.0) pg MCHC (31.0-37.0) g/dL RDW (11.5-15.5) % Plt Count (150-450) k/uL Neutrophils % % Lymphocytes % % Monocytes % % Eosinophils % % Basophils % % Neutrophils # (1.3-7.7) k/uL Lymphocytes # (1.0-4.8) k/uL Monocytes # (0-1.0) k/uL Eosinophils # (0-0.7) k/uL Basophils # (0-0.2) k/uL Hypochromasia VBG pH 7.40 (7.31-7.41) VBG pCO2 45 (37-51) mmHg VBG HCO3 27 (24-28) mmol/L Sodium (137-145) mmol/L Potassium (3.5-5.1) mmol/L Chloride (98-107) mmol/L Carbon Dioxide (22-30) mmol/L Anion Gap mmol/L BUN (9-20) mg/dL Creatinine (0.66-1.25) mg/dL Est GFR (CKD-EPI)AfAm (>60 ml/min/1.73 sqM) Est GFR (CKD-EPI)NonAf (>60 ml/min/1.73 sqM) Glucose (74-99) mg/dL POC Glucose (mg/dL) (75-99) mg/dL POC Glu Behavioral Health Clinician ID Plasma Lactic Acid Devendra 1.2 (0.7-2.0) mmol/L Calcium (8.4-10.2) mg/dL Magnesium (1.6-2.3) mg/dL Total Bilirubin (0.2-1.3) mg/dL AST (17-59) U/L ALT (4-49) U/L Alkaline Phosphatase (38-126) U/L Troponin I 0.035 H* (0.000-0.034) ng/mL Total Protein (6.3-8.2) g/dL Albumin (3.5-5.0) g/dL Acetone, Qual (Negative) Disposition Clinical Impression: CHF (congestive heart failure), ESRD (end stage renal disease) on dialysis, Hyperglycemia, Hypertension Disposition: ADMITTED IP TO THIS [facility] Condition: Serious Referrals: Chad Trevino MD [Primary Care Provider] - 1-2 days
[2020-05-09 23:34] LABS: Glucose,Whole Blood >600 mg/dL (75-99)
[2020-05-09 23:54] LABS: VBG PH 7.4 (7.31-7.41)
[2020-05-10] LABS: Basophils # (A) 0.1 k/uL (0-0.2); Basophils % (A) 1 %; Eosinophils # (A) 0.3 k/uL (0-0.7); Eosinophils % (A) 3 %; HCT 28.3 % (39.0-53.0); HGB 8.7 gm/dL (13.0-17.5); Hypochromasia Moderate; Lymphocytes % (A) 11 %; MCH 27.9 pg (25.0-35.0); MCHC 30.6 g/dL (31.0-37.0); MCV 91.2 fL (80.0-100.0); Mean Platelet Volume 8.9; Monocytes # (A) 0.4 k/uL (0-1.0); Monocytes % (A) 5 %; Neutrophils # (A) 6.8 k/uL (1.3-7.7); Neutrophils % (A) 79 %; Platelet Count 252 k/uL (150-450); RBC 3.11 m/uL (4.30-5.90); RDW 14.3 % (11.5-15.5); WBC 8.7 k/uL (3.8-10.6)
[2020-05-10 00:02] LABS: ALT 14 U/L (4-49); AST 20 U/L (17-59); African American GFR (CKD) 12 (>60 ml/min/1.73 sqM); Albumin 3.7 g/dL (3.5-5.0); Alkaline Phosphatase 96 U/L (38-126); Anion Gap 13 mmol/L; Blood Urea Nitrogen 58 mg/dL (9-20); Calcium 8.4 mg/dL (8.4-10.2); Carbon Dioxide 25 mmol/L (22-30); Chloride 87 mmol/L (98-107); Magnesium 2.4 mg/dL (1.6-2.3); Non-African American GFR(CKD) 10 (>60 ml/min/1.73 sqM); Potassium 4.3 mmol/L (3.5-5.1); Sodium 125 mmol/L (137-145); Total Bilirubin 0.4 mg/dL (0.2-1.3); Total Protein 5.6 g/dL (6.3-8.2)
[2020-05-10 00:18] LABS: Glucose 657 mg/dL (74-99)
[2020-05-10] MEDS ORDERED: INSULIN REGULAR 100 UNIT/ML VIAL IV ONE (01:36)
[2020-05-10] MEDS ORDERED: NALOXONE 0.4 MG/ML 1 ML VIAL IV PRN (02:12)
[2020-05-10] MEDS ORDERED: hydrALAZINE HCL 50 MG TAB PO STA (02:15)
[2020-05-10] MEDS ORDERED: cloNIDine HCL 0.2 MG TAB PO STA (02:15)
[2020-05-10] MEDS ORDERED: carvediloL 6.25 MG TAB PO STA (02:15)
[2020-05-10 07:07] LABS: Glucose,Whole Blood 488 mg/dL (75-99)
[2020-05-10] MEDS ORDERED: INSULIN REGULAR BOLUS (FROM DRIP BAG) IV ONE (07:15)
[2020-05-10] MEDS ORDERED: INSULIN REGULAR 100 UNIT in SODIUM CHLORIDE 0.9% 100 ML IV SCH (07:15)
[2020-05-10] MEDS ORDERED: INSULIN ASPART (NovoLOG) 100 UNIT/ML VIAL SQ SCH (07:30)
[2020-05-10] MEDS: cloNIDine HCL 0.1 MG TAB PO SCH ×3 (08:22→22:58)
[2020-05-10] MEDS: HYDROcodone/APAP 5-325MG 1 EACH TAB PO SCH ×2 (08:22→22:59)
[2020-05-10] MEDS: amLODIPine 10 MG TAB PO SCH (08:22)
[2020-05-10] MEDS: SERTRALINE 50 MG TAB PO SCH (08:23)
[2020-05-10] MEDS: hydrALAZINE HCL 50 MG TAB PO SCH ×3 (08:23→23:00)
[2020-05-10] MEDS: carvediloL 6.25 MG TAB PO SCH ×2 (08:23→16:53)
[2020-05-10] MEDS: CALCIUM ACETATE 667 MG TAB PO SCH ×3 (08:23→18:02)
[2020-05-10] MEDS: INSULIN ASPART (NovoLOG) 100 UNIT/ML VIAL SQ SCH ×4 (08:24→23:03)
[2020-05-10 08:26] LABS: Glucose,Whole Blood 433 mg/dL (75-99)
[2020-05-10] MEDS ORDERED: MEGESTROL 400 MG/10 ML CUP PO SCH (09:00)
[2020-05-10 09:54] LABS: Glucose,Whole Blood 468 mg/dL (75-99)
[2020-05-10] MEDS: MEGESTROL 400 MG/10 ML CUP PO SCH (10:21)
[2020-05-10 12:02] LABS: Glucose,Whole Blood 292 mg/dL (75-99)
[2020-05-10 14:24] LABS: Glucose,Whole Blood 91 mg/dL (75-99)
[2020-05-10 15:03] VITALS: BMI 23.7
[2020-05-10 16:34] LABS: Glucose,Whole Blood 52 mg/dL (75-99)
[2020-05-10 16:34] LABS: Glucose,Whole Blood 55 mg/dL (75-99)
[2020-05-10 16:47] LABS: Glucose,Whole Blood 72 mg/dL (75-99)
[2020-05-10 18:05] LABS: Glucose,Whole Blood 246 mg/dL (75-99)
--- NOTE | 2020-05-10 19:16 | P.HPIM ---
History of Present Illness H&P Date: 05/10/20 Chief Complaint: High sugars History of presenting complaint: This is a 40-year-old patient follows with Dr. Trevino. Extensive medical history. Chronic stable medical conditions include asthma, diabetes, end-stage kidney disease and hemodialysis, hypertension, hyperlipidemia, history of bilateral pleural effusions, cardiac tamponade window, end-stage kidney disease on hemo dialysis Sunday and Sunday of the fistula in the right lower arm, minimal bone disease chronic anemia peptic ulcer disease, peripheral arterial disease bilateral poor vision. Patient initially presented to outside hospital short of breath and noted to be hypoxic with a pulse ox 80%. Patient was in DKA with a glucose greater than 600. X-ray had shown some fluid overload. Also hypertensive. Patient placed on oxygen and transferred here. This morning patient did get hemodialyzed. Was put on insulin drip. Patient has been taking his insulin. No fever no chills. Breathing better. Review of systems: GEN.: Tired EYES: Poor vision HEENT: None NECK: None RESPIRATORY: Shortness of breath, no cough CARDIOVASCULAR: None GASTROINTESTINAL: None GENITOURINARY: None MUSCULOSKELETAL: None LYMPHATICS: None HEMATOLOGICAL: None PSYCHIATRY: Anxious NEUROLOGICAL: None Past medical history to include: Asthma, diabetes, GERD, peptic ulcer disease, hypertension, hyperlipidemia, bilateral pleural effusion with right-sided thoracentesis, decortication, cardiac tamponade window, diabetes since age of 21, on hemodialysis Sunday and Sunday of the fistula in the right lower arm. Minimal bone disease, chronic anemia, hiatal hernia, peptic ulcer disease, peripheral arterial disease, DJD, osteoarthritis of the left foot in 2012, have her take foot ulcers and amputations, right eye retinal detachment, left eye Blindness MRSA infections, ventriculoperitoneal shunt, depression Social history: Lives with his mother. No history of smoking. Alcohol rarely. Did chew tobacco in the past stopped 2016 Physical examination: VITAL SIGNS: 98.7, 80, 18, 200/105, 98% on 4 L-upon presentation GENERAL: BMI 23.7, Propper in bed, tired. EYES: Pupils equal. Conjunctiva palel. HEENT: External appearance of nose and ears normal, oral cavity grossly normal. NECK: JVD not raised; masses not palpable. HEART: First and second heart sounds are normal; no edema. LUNGS: Respiratory rate normal; clear to auscultation. ABDOMEN: Soft, nontender, liver spleen not palpable, no masses palpable. PSYCH: Alert and oriented x3; mood and affect slightly anxiousl. EXTREMITIES: Right upper extremity lower arm AV fistula NEUROLOGICAL: [Decreased vision, otherwise cranial nerves grossly intact, bun and sensation grossly intact LYMPHATICS: No lymph nodes palpable in the axilla and neck INVESTIGATIONS, reviewed in the clinical context: White count 8.7 hemoglobin 8.7 platelets 252 sodium 125 potassium 4.3 bun 58 creatinine 6.10 blood glucose 657 Troponin I 0.035 serum acetone negative Accu-Cheks [id number] Assessment: -Acute pulmonary edema from end-stage kidney disease -Acute hypoxic respiratory failure from pulmonary edema -Nonketotic hyperosmolar hyperglycemia -Intermittent asthma -GERD -Hyperlipidemia -Essential hypertension with chronic kidney disease -Chronic kidney disease minimal bone disease -Hiatal hernia -Peripheral arterial disease -Bilateral poor vision Plan: Patient getting hemodialysis this morning. Breathing is improved with hemodialysis. Home medications and resume. Patient's placed on insulin drip. Accu-Cheks will be followed. Care was discussed with the patient. Questions were answered. Nephrology consult. Past Medical History Past Medical History: Asthma, Diabetes Mellitus, Dialysis, Eye Disorder, G ERD/Reflux, GI Bleed, Hyperlipidemia, Hypertension, Pneumonia, Renal Disease, Vascular Disorder Additional Past Medical History / Comment(s): Bilateral pleural effusions with R side worse-bilateral thoracentisis/ R pleural pigtail cath/R side alteplase pleural instillation/decortication/cryoablation, cardiac tamponade with window, IDDM type I, diabetic since he was age 21, DKA, ESRD with hemodialysis on M/W/F, fistula right lower arm, mineral bone disease, volume overload, chronic anemia, hiatal hernia, previous history of GI bleed secondary to peptic ulcer disease, peripheral vascular disease, low back pain/DDD, osteomyelitis L foot in 2012, diabetic foot ulcers and amputations, R eye retinal detachment/surgery-vision poor, L eye cataract/blindness History of Any Multi-Drug Resistant Organisms: MRSA Date of last positivie culture/infection: 12/20/11 MDRO Source:: Left Foot Past Surgical History: Ventriculoperitoneal Shunt Additional Past Surgical History / Comment(s): A/V fistula R lower arm, renal needle bx, 2008 left great toe amp and 2013 2nd to 5th left foot toes amputated, L foot I&D, right chest mediport x2 with removal in 2010 and 2012. right eye retina reattachment sx 03/2015. EGD/colonoscopy, pericardial window for cardiac tampanode, bilateral thoracentesis, R pleural pigtail insertion/alteplase pleural instillation/thoracotomy with decortication and cryoablation, EGD, colonoscopy. Past Anesthesia/Blood Transfusion Reactions: No Reported Reaction Additional Past Anesthesia/Blood Transfusion Reaction / Comment(s): Pt states he has received blood in past without reaction. Past Psychological History: Depression Additional Psychological History / Comment(s): Pt resides with his mother. He uses a cane at times. He no longer drives d/t vision loss. He has a glucometer. Smoking Status: Never smoker Past Alcohol Use History: None Reported, Rare Additional Past Alcohol Use History / Comment(s): Pt has hx of chewing tobacco but quit in 2016. Past Drug Use History: None Reported - Past Family History Mother Family Medical History: Hypertension Father Family Medical History: CVA/TIA, Diabetes Mellitus, Hypertension Additional Family Medical History / Comment(s): Father is at the age of 53yrs from a CVA. Medications and Allergies Home Medications Medication Instructions Recorded Confirmed Type Pravastatin Sodium [Pravachol] 40 mg PO HS 12/26/15 05/10/20 History Thera M Plus 1 tab PO HS 08/05/18 05/10/20 History amLODIPine [Norvasc] 10 mg PO DAILY 11/14/18 05/10/20 History Dicyclomine [Bentyl] 20 mg PO QID PRN 02/28/19 05/10/20 History Glucagon Emergency Kit 1 mg IM ONCE PRN 02/28/19 05/10/20 History Insulin Aspart [NovoLOG] See Protocol SQ AC-TID 02/28/19 05/10/20 History Insulin Degludec [Tresiba] 30 unit SQ HS 02/28/19 05/10/20 History ARIPiprazole [Abilify] 15 mg PO HS 04/19/20 05/10/20 History HYDROcodone/APAP 5-325MG [[place] 1 tab PO BID PRN 04/19/20 05/10/20 History 5-325] Sertraline [Zoloft] 50 mg PO DAILY 04/19/20 05/10/20 History hydrALAZINE HCL [Apresoline] 100 mg PO TID 04/19/20 05/10/20 History Carvedilol [Coreg] 12.5 mg PO BID 05/10/20 05/10/20 History Loratadine [Alavert] 10 mg PO DAILY 05/10/20 05/10/20 History tiZANidine HCL [Zanaflex] 2 mg PO Q8H PRN 05/10/20 05/10/20 History Allergies Allergy/AdvReac Type Severity Reaction Status Date / Time lisinopril Allergy Unknown Verified 05/10/20 12:21 atorvastatin calcium AdvReac Nausea & Verified 05/10/20 12:21 [From Lipitor] Vomiting/muscle weakness losartan potassium AdvReac Nausea & Verified 05/10/20 12:21 [From Cozaar] Vomiting/hypotension tramadol AdvReac drowsiness Verified 05/10/20 12:21 Physical Exam Vitals: Vital Signs Temp Pulse Pulse Resp BP BP Pulse Ox 05/10/20 09:03 18 05/10/20 08:08 98.0 F 73 18 185/90 97 05/10/20 07:07 63 19 160/88 98 05/10/20 05:42 98.9 F 75 17 163/98 95 05/10/20 05:00 72 16 160/89 96 05/10/20 01:53 80 20 197/112 96 05/10/20 01:08 192/111 05/10/20 00:08 24 194/111 05/09/20 23:01 98.7 F 80 18 200/105 98 Intake and Output 05/09/20 05/10/20 05/10/20 22:59 06:59 14:59 Other: Voiding Method Toilet Weight 81.647 kg Results CBC & Chem 7: 05/09/20 23:45 05/09/20 23:45 Labs: Abnormal Lab Results - Last 24 Hours (Table) 05/09/20 05/09/20 05/09/20 Range/Units 23:33 23:45 23:45 RBC 3.11 L (4.30-5.90) m/uL Hgb 8.7 L (13.0-17.5) gm/dL Hct 28.3 L (39.0-53.0) % MCHC 30.6 L (31.0-37.0) g/dL Sodium 125 L (137-145) mmol/L Chloride 87 L (98-107) mmol/L BUN 58 H (9-20) mg/dL Creatinine 6.10 H (0.66-1.25) mg/dL Glucose 657 H* (74-99) mg/dL POC Glucose (mg/dL) >600 H (75-99) mg/dL Magnesium 2.4 H (1.6-2.3) mg/dL Troponin I (0.000-0.034) ng/mL Total Protein 5.6 L (6.3-8.2) g/dL 05/09/20 05/10/20 05/10/20 Range/Units 23:45 07:06 08:14 RBC (4.30-5.90) m/uL Hgb (13.0-17.5) gm/dL Hct (39.0-53.0) % MCHC (31.0-37.0) g/dL Sodium (137-145) mmol/L Chloride (98-107) mmol/L BUN (9-20) mg/dL Creatinine (0.66-1.25) mg/dL Glucose (74-99) mg/dL POC Glucose (mg/dL) 488 H 433 H (75-99) mg/dL Magnesium (1.6-2.3) mg/dL Troponin I 0.035 H* (0.000-0.034) ng/mL Total Protein (6.3-8.2) g/dL 05/10/20 Range/Units 09:53 RBC (4.30-5.90) m/uL Hgb (13.0-17.5) gm/dL Hct (39.0-53.0) % MCHC (31.0-37.0) g/dL Sodium (137-145) mmol/L Chloride (98-107) mmol/L BUN (9-20) mg/dL Creatinine (0.66-1.25) mg/dL Glucose (74-99) mg/dL POC Glucose (mg/dL) 468 H (75-99) mg/dL Magnesium (1.6-2.3) mg/dL Troponin I (0.000-0.034) ng/mL Total Protein (6.3-8.2) g/dL Thrombosis Risk Factor Assmnt - Choose All That Apply Any of the Below Risk Factors Present?: Yes Each Factor Represents 1 point: Age 41-60 years Thrombosis Risk Factor Assessment Total Risk Factor Score: 1 Thrombosis Risk Factor Assessment Level: Low Risk
[2020-05-10 20:28] LABS: Glucose,Whole Blood 96 mg/dL (75-99)
--- NOTE | 2020-05-10 20:32 | CONS ---
CONSULTATION REASON FOR CONSULT: End-stage renal disease. HISTORY OF PRESENT ILLNESS: The patient is a 40-year-old male with end-stage renal disease, on hemodialysis on a Sunday, Sunday, Sunday schedule at [place]. The patient was admitted to the hospital with complaints of increased weakness and shortness of breath. His oxygen saturations had been about 80% on room air. He has had previous admissions for DKA and pneumonia and fluid overload. Currently patient does not appear to be significantly fluid-overloaded. However, his blood pressure was quite elevated. His lower extremity edema has improved significantly with regular outpatient treatments. PAST MEDICAL HISTORY: End-stage renal disease, type 2 diabetes, hypertension, coronary artery disease, CKD mineral bone disorder, diabetic retinopathy, diabetic neuropathy, previous history of pneumonia, pleural effusions with history of right decortication, history of cardiac tamponade, multiple admissions for DKA, previous history of GI bleed, osteomyelitis, left foot diabetic foot ulcers, retinal detachment. PAST SURGICAL HISTORY: AV fistula right arm, history of kidney biopsy, multiple toe amputations, surgery for retinal detachment, EGD, colonoscopy, pericardial window, thoracentesis, decortication right lung, EGD, colonoscopy. SOCIAL HISTORY: Negative for smoking, drug abuse or alcohol abuse. MEDICATIONS: Medications at home prior to admission included Norvasc, Bentyl, Pravachol, insulin, glucagon, Abilify, Neurontin, [place], Imodium, Zoloft, hydralazine, PhosLo, Coreg, clonidine. ALLERGIES: ALLERGIES include LIPITOR, COZAAR, TRAMADOL. REVIEW OF SYSTEMS: As per HPI. Other systems negative. PHYSICAL EXAMINATION: Patient is comfortable, awake, alert, oriented x3, not in any acute distress. MANAGER [employer] exam is grossly intact. EXAMINATION OF THE HEART: S1 and S2. EXAMINATION OF LUNGS: Bilateral breath sounds are heard. ABDOMEN: Soft, non-tender. Examination of lower extremities shows no significant edema. Chronic skin changes noted bilaterally. LABS: Labs show blood sugar more than 600 on initial admission, currently down to about 400, hemoglobin 8.7, white cell count 8.7, sodium 125, potassium 4.3, BUN 58, creatinine 6.1. ASSESSMENT: 1. End-stage renal disease, on hemodialysis on a Sunday, Sunday, Sunday schedule. 2. History of volume overload, currently improved as outpatient. Lower extremity edema has improved significantly. 3. Anemia, multifactorial. No active bleeding noted at this time. Will maintain patient on Aranesp. Check iron profile. 4. Hypervolemic hyponatremia. 5. Nonketotic diabetic state, hyperosmolar, with blood sugar more than 600 on initial admission. PLAN: Control blood sugars. Hemodialysis today, UF of about 2 to 2.5 L. Next dialysis will be on Sunday. Patient will be maintained on his phosphate binders as well. Thank you for this consultation. Will continue to follow the patient with you during his hospitalization. MMODL / IJN: [id number] /
[2020-05-10] MEDS ORDERED: PRAVASTATIN SODIUM 40 MG TAB PO SCH (21:00)
[2020-05-10] MEDS ORDERED: GABAPENTIN 100 MG CAP PO SCH (21:00)
[2020-05-10] MEDS ORDERED: INSULIN DETEMIR (LEVEMIR) 100 UNIT/ML SYR SQ SCH ×2 (21:00)
[2020-05-10] MEDS ORDERED: ARIPiprazole 15 MG TAB PO SCH (21:00)
[2020-05-11 02:12] LABS: Glucose,Whole Blood 201 mg/dL (75-99)
[2020-05-11 07:26] LABS: Glucose,Whole Blood 42 mg/dL (75-99)
[2020-05-11] MEDS: INSULIN ASPART (NovoLOG) 100 UNIT/ML VIAL SQ SCH ×2 (07:32→13:02)
[2020-05-11 07:52] LABS: Glucose,Whole Blood 47 mg/dL (75-99)
[2020-05-11 08:30] LABS: Glucose,Whole Blood 186 mg/dL (75-99)
[2020-05-11] MEDS: HYDROcodone/APAP 5-325MG 1 EACH TAB PO SCH (08:49)
[2020-05-11] MEDS: carvediloL 6.25 MG TAB PO SCH (08:49)
[2020-05-11] MEDS: CALCIUM ACETATE 667 MG TAB PO SCH ×2 (08:50→13:01)
[2020-05-11] MEDS: hydrALAZINE HCL 50 MG TAB PO SCH (08:51)
[2020-05-11] MEDS: SERTRALINE 50 MG TAB PO SCH (08:51)
[2020-05-11] MEDS: cloNIDine HCL 0.1 MG TAB PO SCH (08:51)
[2020-05-11] MEDS: amLODIPine 10 MG TAB PO SCH (08:51)
[2020-05-11] MEDS: MEGESTROL 400 MG/10 ML CUP PO SCH (08:52)
--- NOTE | 2020-05-11 10:36 | P.PN ---
Subjective Patient is seen in follow-up for end-stage renal disease. Blood sugar was a little on the lower side this morning. Patient denies chest pain or shortness of breath. Oral intake is good. Tolerated dialysis well yesterday. Vital signs are stable. General: The patient appeared well nourished and normally developed. HEENT: Head exam is unremarkable. Neck is without jugular venous distension. LUNGS: Lungs are clear to auscultation and percussion. Breath sounds decreased. HEART: Rate and Rhythm are regular. ABDOMEN: Soft, nontender. EXTREMITITES: No clubbing, cyanosis, or edema. Objective - Vital Signs Vital signs: Vital Signs Temp 98.4 F 05/11/20 05:00 Pulse 71 05/11/20 05:00 Resp 18 05/11/20 05:00 BP 158/82 05/11/20 05:00 Pulse Ox 96 05/11/20 05:00 Intake & Output 05/10/20 05/11/20 05/11/20 18:59 06:59 18:59 Intake Total 42.067 Balance 42.067 Weight 81.647 kg Intake: Intake, IV Titration 42.067 Amount Insulin Regular 100 unit 42.067 In Sodium Chloride 0.9% 100 ml @ Titrate IV .Q0M [facility] Rx#:[id number] Other: Voiding Method Toilet Toilet # Voids 2 2 # Bowel Movements 1 5 - Labs CBC & Chem 7: 05/09/20 23:45 05/09/20 23:45 Labs: Abnormal Lab Results - Last 24 Hours (Table) 05/10/20 05/10/20 05/10/20 Range/Units 12:00 16:21 16:32 POC Glucose (mg/dL) 292 H 52 L 55 L (75-99) mg/dL 05/10/20 05/10/20 05/11/20 Range/Units 16:45 18:04 02:11 POC Glucose (mg/dL) 72 L 246 H 201 H (75-99) mg/dL 05/11/20 05/11/20 05/11/20 Range/Units 07:24 07:50 08:28 POC Glucose (mg/dL) 42 L 47 L 186 H (75-99) mg/dL Assessment and Plan Plan: Assessment: 1. End-stage renal disease maintained on hemodialysis on Sunday schedule. 2. Uncontrolled diabetes mellitus with blood sugars above 600 on admission. Resolved. 3. Chronic kidney disease mineral bone disease maintained on PhosLo. 4. Hypertension with chronic kidney disease. Stable. Plan: Hemodialysis tomorrow.
[2020-05-11 12:58] LABS: Glucose,Whole Blood 202 mg/dL (75-99)
[2020-05-11 13:26] VITALS: BP 138/70; PULSE 91; RESP 16; TEMP 98.1
[2020-05-11 16:26] LABS: Hemoglobin A1C 12.6 % (4.0-6.0)
--- NOTE | 2020-05-11 22:52 | P.DS ---
Providers Date of admission: 05/10/20 02:15 Expected date of discharge: 05/11/20 Attending physician: Kristopher Stone Consults: 05/10/20 02:13 Consult Physician Urgent Consulting Provider: Jojo Charles Consult Reason/Comments: needs dialysis Do you want consulting provider notified?: Yes, Notify in am Primary care physician: [facility] Course: Chief Complaint: High sugars History of presenting complaint: This is a 40-year-old patient follows with Dr. Trevino. Extensive medical history. Chronic stable medical conditions include asthma, diabetes, end-stage kidney disease and hemodialysis, hypertension, hyperlipidemia, history of bilateral pleural effusions, irritable bowel syndrome.,cardiac tamponade window, end-stage kidney disease on hemodialysis Sunday and Sunday of the fistula in the right lower arm, minimal bone disease chronic anemia peptic ulcer disease, peripheral arterial disease bilateral poor vision. Patient initially presented to outside hospital short of breath and noted to be hypoxic with a pulse ox 80%. Patient was in DKA with a glucose greater than 600. X-ray had shown some fluid overload. Also hypertensive. Patient placed on oxygen and transferred here. This morning patient did get hemodialyzed. Was put on insulin drip. Patient has been taking his insulin. No fever no chills. Breathing better. today-doing much better. Breathing much improved. Eating well. Patient was hemodialyzed yesterday and today. Patient has chronic intermittent diarrhea from irritable bowel syndrome.discussed with the patient. Feels back to his baseline. Sugars better. Consultation: Nephrology Physical examination: VITAL SIGNS: 98.1, 91, 16, 138/70, 96% room air GENERAL: sitting up, comfortable EYES: Pupils equal. Conjunctiva palel. NECK: JVD not raised; masses not palpable. HEART: First and second heart sounds are normal; no edema. LUNGS: Respiratory rate normal; clear to auscultation. ABDOMEN: Soft, nontender, liver spleen not palpable, no masses palpable. PSYCH: Alert and oriented x3; mood and affect slightly anxiousl. EXTREMITIES: Right upper extremity lower arm AV fistula NEUROLOGICAL: [Decreased vision, otherwise cranial nerves grossly intact, bun and sensation grossly intact INVESTIGATIONS, reviewed in the clinical context: White count 8.7 hemoglobin 8.7 platelets 252 sodium 125 potassium 4.3 bun 58 creatinine 6.10 blood glucose 657 Troponin I 0.035 serum acetone negative Accu-Cheks [phone] Assessment: -Acute pulmonary edema from end-stage kidney disease-improved ultrafiltration, POA -Acute hypoxic respiratory failure from pulmonary edema, POA -Nonketotic hyperosmolar hyperglycemia,POA -Intermittent asthma -GERD -Hyperlipidemia -Essential hypertension with chronic kidney disease -Chronic kidney disease minimal bone disease -Hiatal hernia -Peripheral arterial disease -Bilateral poor vision disposition: Home Patient Condition at Discharge: Stable Plan - Discharge Summary Discharge Rx Participant: No New Discharge Prescriptions: New cloNIDine HCL [Catapres] 0.2 mg PO TID #90 tab Gabapentin [Neurontin] 100 mg PO HS cap Calcium Acetate [PhosLo] 667 mg PO AC-TID #90 tab Continue Pravastatin Sodium [Pravachol] 40 mg PO HS Thera M Plus 1 tab PO HS amLODIPine [Norvasc] 10 mg PO DAILY Insulin Aspart [NovoLOG] See Protocol SQ AC-TID Dicyclomine [Bentyl] 20 mg PO QID PRN PRN Reason: Gi Upset Glucagon Emergency Kit 1 mg IM ONCE PRN PRN Reason: HYPOGLYCEMIA EVENT Sertraline [Zoloft] 50 mg PO DAILY hydrALAZINE HCL [Apresoline] 100 mg PO TID HYDROcodone/APAP 5-325MG [[place] 5-325] 1 tab PO BID PRN PRN Reason: Pain ARIPiprazole [Abilify] 15 mg PO HS tiZANidine HCL [Zanaflex] 2 mg PO Q8H PRN PRN Reason: Muscle Spasm Loratadine [Alavert] 10 mg PO DAILY Changed Carvedilol [Coreg] 6.25 mg PO BID #0 Insulin Degludec [Tresiba] 24 unit SQ HS #0 Discharge Medication List Pravastatin Sodium [Pravachol] 40 mg PO HS 12/26/15 [History] Thera M Plus 1 tab PO HS 08/05/18 [History] amLODIPine [Norvasc] 10 mg PO DAILY 11/14/18 [History] Dicyclomine [Bentyl] 20 mg PO QID PRN 02/28/19 [History] Glucagon Emergency Kit 1 mg IM ONCE PRN 02/28/19 [History] Insulin Aspart [NovoLOG] See Protocol SQ AC-TID 02/28/19 [History] ARIPiprazole [Abilify] 15 mg PO HS 04/19/20 [History] HYDROcodone/APAP 5-325MG [[place] 5-325] 1 tab PO BID PRN 04/19/20 [History] Sertraline [Zoloft] 50 mg PO DAILY 04/19/20 [History] hydrALAZINE HCL [Apresoline] 100 mg PO TID 04/19/20 [History] Loratadine [Alavert] 10 mg PO DAILY 05/10/20 [History] tiZANidine HCL [Zanaflex] 2 mg PO Q8H PRN 05/10/20 [History] Calcium Acetate [PhosLo] 667 mg PO AC-TID #90 tab 05/11/20 [Rx] Carvedilol [Coreg] 6.25 mg PO BID #0 05/11/20 [Rx] Gabapentin [Neurontin] 100 mg PO HS cap 05/11/20 [Rx] Insulin Degludec [Tresiba] 24 unit SQ HS #0 05/11/20 [Rx] cloNIDine HCL [Catapres] 0.2 mg PO TID #90 tab 05/11/20 [Rx] Follow up Appointment(s)/Referral(s): Chad Trevino MD [Primary Care Provider] - 05/13/20 10:00 am Patient Instructions/Handouts: Heart Failure (GEN), Diabetic Hyperglycemia (GEN) Discharge Disposition: HOME SELF-CARE
== END 2020-05-11 15:48 | disposition home or self-care (01) | DRG 637 ==
LOC: EC 22:59 → 5NMEDONC 05-10 02:15
PROVIDERS: ADMIT Hospitalist; ATTEND Hospitalist
PROC: 5A1D70Z Performance of Urinary Filtration, Intermittent, Less than 6 Hours Per Day (ICD-10-PCS; principal; 2020-05-10)
DX: E11.00 Type 2 diabetes mellitus with hyperosmolarity without nonketotic hyperglycemic-hyperosmolar coma (NKHHC) (principal); J81.0 Acute pulmonary edema; J96.01 Acute respiratory failure with hypoxia; N18.6 End stage renal disease; I13.2 Hypertensive heart and chronic kidney disease with heart failure and with stage 5 chronic kidney disease, or end stage renal disease; E87.1 Hypo-osmolality and hyponatremia; D63.1 Anemia in chronic kidney disease; E11.22 Type 2 diabetes mellitus with diabetic chronic kidney disease; E11.40 Type 2 diabetes mellitus with diabetic neuropathy, unspecified; E11.51 Type 2 diabetes mellitus with diabetic peripheral angiopathy without gangrene; E11.319 Type 2 diabetes mellitus with unspecified diabetic retinopathy without macular edema; Z89.422 Acquired absence of other left toe(s); Z89.412 Acquired absence of left great toe; Z99.2 Dependence on renal dialysis; Z79.4 Long term (current) use of insulin; K21.9 Gastro-esophageal reflux disease without esophagitis; E83.9 Disorder of mineral metabolism, unspecified; J45.20 Mild intermittent asthma, uncomplicated; E78.5 Hyperlipidemia, unspecified; F32.9 Major depressive disorder, single episode, unspecified; H54.7 Unspecified visual loss; K44.9 Diaphragmatic hernia without obstruction or gangrene; K58.0 Irritable bowel syndrome with diarrhea; I25.10 Atherosclerotic heart disease of native coronary artery without angina pectoris; Z71.3 Dietary counseling and surveillance; Z79.899 Other long term (current) drug therapy; Z87.01 Personal history of pneumonia (recurrent); Z87.19 Personal history of other diseases of the digestive system; Z87.11 Personal history of peptic ulcer disease; Z86.14 Personal history of Methicillin resistant Staphylococcus aureus infection; Z87.891 Personal history of nicotine dependence; Z98.2 Presence of cerebrospinal fluid drainage device; Z98.890 Other specified postprocedural states; Z95.828 Presence of other vascular implants and grafts; Z88.8 Allergy status to other drugs, medicaments and biological substances; Z82.49 Family history of ischemic heart disease and other diseases of the circulatory system; Z82.3 Family history of stroke; Z83.3 Family history of diabetes mellitus
CPT/HCPCS: 36415; 80053; 82009; 82803; 83036; 83605; 83735; 84484; 85025; 90935; 99285

== ENCOUNTER 2020-10-14 06:45 | Day surgery (SDC) | payer MEDICARE, OTHER ==
[2020-10-12 13:49] VITALS: BMI 21.8
[~2020-10-14 06:45] MED LIST changes: -DEXAMETHASONE SOD PHOSPHATE 10 MG/ML 1 ML VIAL IV ONE; -HYDROmorphone 0.5 MG/0.5 ML SYRINGE IVP PRN; +LIDOCAINE 1% (10MG/ML) FOR IV START INTRADERMA PRN; -MIDAZOLAM 2 MG/2 ML VIAL IV PRN; -ONDANSETRON 4 MG/2 ML VIAL IVP ONE; -SCOPOLAMINE 1.5MG/72HR PATCH TRANSDERM ONE
[2020-10-14 07:26] LABS: Glucose,Whole Blood 140 mg/dL (75-99)
[2020-10-14] MEDS ORDERED: DEXTROSE 50% SYRINGE 50 ML IVP ONE ×2 (10:25→12:24)
[2020-10-14 10:28] LABS: Glucose,Whole Blood 68 mg/dL (75-99)
[2020-10-14 10:34] VITALS: TEMP 97.3
[2020-10-14 10:41] LABS: Glucose,Whole Blood 101 mg/dL (75-99)
[2020-10-14 10:45] LABS: Calcium 9.6 mg/dL (8.4-10.2)
[2020-10-14] MEDS ORDERED: PROPOFOL 10 MG/ML 20 ML VIAL IV ONE (11:07)
[2020-10-14] MEDS ORDERED: LIDOCAINE 1% INJ 10MG/ML (20 ML MDV) ONE (11:07)
--- NOTE | 2020-10-14 11:33 | P.PCN ---
Date of Procedure: 10/14/20 Procedure(s) Performed: Brief history: Patient is a pleasant 38-year-old white male scheduled for an elective upper endoscopy as well as colonoscopy as a part of evaluation of chronic intermittent nausea vomiting, diarrhea and progressive weight loss of 30 pounds in the last 2 years duration. Procedure performed: Esophagogastroduodenoscopy with biopsy Colonoscopy with biopsy and snare polypectomy Preoperative diagnosis: Chronic intermittent nausea vomiting/weight loss Chronic diarrhea Anesthesia: MAC Procedure: After informed consent was obtained from the patient was brought into the endoscopy unit and IV sedation was administered by anesthesia under continuous monitoring. Initially upper endoscopy was done. The Olympus GF 160 video endoscope was inserted inserted into the mouth and esophagus intubated without any difficulty and was gradually advanced into the stomach and duodenum and carefully examined. The bulb and second part of the duodenum appeared normal. Abscesses were done from the duodenum to rule out celiac disease. The scope was then withdrawn into the stomach adequately insufflated with air and upon careful examination the antrum had mild gastritis and biopsies were done from this area. The body, cardia and fundus appeared normal. The scope was then withd rawn into the esophagus. The GE junction was located at 40 cm to the incisors. It appeared regular with no erythema erosions or ulcerations. Rest of the esophagus appeared normal. Patient tolerated the procedure well. At this time the patient continued to remain sedation. Initial digital rectal examination was normal. Olympus CF 160 video colonoscope was then inserted into the rectum and gradually advanced to the cecum without any difficulty. Careful examination was performed as the scope was gradually being withdrawn. The prep was excellent. The cecum, ascending colon, transverse colon, descending colon, appeared normal. In the distal sigmoid: There was a 1 cm polyp that was removed by snare polypectomy. Rest of the sigmoid colon and rectum appeared normal. and random biopsies were done from ascending and descending colon to rule out microscopic/collagenous colitis. Retroflexion was performed in the rectum and no lesions were noted. Patient tolerated the procedure well. Impression: 1. Upper endoscopy revealed mild antral gastritis but no evidence of esophagitis or gastric outlet obstruction 2. Colonoscopy revealed a 1 cm; polyp status post polypectomy. Recommendations: Findings of this examination were discussed with the patient as well as as his family. He was advised to follow with the biopsy results.. He'll be seen in office in 2-3 weeks.
[2020-10-14 11:47] LABS: Glucose,Whole Blood 97 mg/dL (75-99)
[2020-10-14 11:54] VITALS: BP 169/91; PULSE 89; RESP 16
[2020-10-14 12:02] LABS: Glucose,Whole Blood 77 mg/dL (75-99)
[2020-10-14 12:18] LABS: Glucose,Whole Blood 66 mg/dL (75-99)
[2020-10-14 12:50] LABS: Glucose,Whole Blood 112 mg/dL (75-99)
== END 2020-10-14 13:01 | disposition home or self-care (01) ==
LOC: ORWHC2ENDO 06:45
PROVIDERS: ATTEND Internal Medicine Gastroenterology
DX: D12.5 Benign neoplasm of sigmoid colon (principal); K52.9 Noninfective gastroenteritis and colitis, unspecified; K31.9 Disease of stomach and duodenum, unspecified; K21.9 Gastro-esophageal reflux disease without esophagitis; I12.0 Hypertensive chronic kidney disease with stage 5 chronic kidney disease or end stage renal disease; E78.5 Hyperlipidemia, unspecified; I73.9 Peripheral vascular disease, unspecified; J45.909 Unspecified asthma, uncomplicated; E11.22 Type 2 diabetes mellitus with diabetic chronic kidney disease; N18.6 End stage renal disease; Z88.5 Allergy status to narcotic agent; Z88.8 Allergy status to other drugs, medicaments and biological substances; Z99.2 Dependence on renal dialysis; Z79.02 Long term (current) use of antithrombotics/antiplatelets; Z79.899 Other long term (current) drug therapy
CPT/HCPCS: 88305; 80048; 45380; 45385; 43239; J2001; J2704

== ENCOUNTER 2021-03-22 15:40 | Inpatient (IN) | payer MEDICARE, OTHER ==
--- NOTE | 2021-03-22 16:04 | ED ---
General Adult HPI - General Chief complaint: Shortness of Breath Stated complaint: pneumonia Source: patient, EMS, RN notes reviewed, old records reviewed (Records from [facility]) Mode of arrival: EMS Limitations: no limitations - History of Present Illness Initial comments: 41-year-old white male, alert and oriented 4, presents to the emergency room with complaints of shortness of breath for the past 2 days. Patient states he went to his primary care doctor's office today and his oxygen saturation was reading in the 80s was improved with 2 L of oxygen into the low 90s. Upon arrival to [facility] ER he was found have a glucose level of 43 and was given glucagon and an amp of D50. Patient had taken his insulin but did not eat. Hemoglobin and hematocrit at that facility was 10 and 33 respectively, WBC count is 12.6. Chest x-ray [facility] was read as cardiomegaly and pulmonary venous congestion and small effusions. Patient was given 1 g of Rocephin and started on Zithromax IV piggyback to treat community-acquired pneumonia and then transferred to our facility for admission. His troponin was 0.135, TECHNICAL AGRONOMIST was 82,600, he was given an aspirin 324 mg by mouth. Patient is an end-stage renal patient who gets hemodialysis Sunday and Sunday. He did have dialysis yesterday. Patient is a nonsmoker with a history of end-stage renal disease, irritable bowel syndrome, hypertension, hypercholesterolemia, previous history of cardiac tamponade with a pericardial window April 2019. -: days(s) (2) Radiation: non-radiation Severity scale (1-10): 0 Associated Symptoms: shortness of breath, weakness Treatments Prior to Arrival: other (Labs, x-ray, and Zithromax IV piggyback) - Related Data Home Medications Medication Instructions Recorded Confirmed Pravastatin Sodium [Pravachol] 40 mg PO HS 12/26/15 10/12/20 amLODIPine [Norvasc] 10 mg PO DAILY 11/14/18 10/12/20 Dicyclomine [Bentyl] 20 mg PO QID PRN 02/28/19 10/12/20 Glucagon Emergency Kit 1 mg IM ONCE PRN 02/28/19 10/12/20 Insulin Aspart [NovoLOG] See Protocol SQ AC-TID 02/28/19 10/12/20 ARIPiprazole [Abilify] 15 mg PO HS 04/19/20 10/12/20 HYDROcodone/APAP 5-325MG [[place] 1 tab PO BID PRN 04/19/20 10/12/20 5-325] Sertraline [Zoloft] 50 mg PO DAILY 04/19/20 10/12/20 hydrALAZINE HCL [Apresoline] 100 mg PO TID 04/19/20 10/12/20 Loratadine [Alavert] 10 mg PO DAILY 05/10/20 10/12/20 tiZANidine HCL [Zanaflex] 2 mg PO Q8H PRN 05/10/20 10/12/20 Ascorbic Acid [Vitamin C] 1,000 mg PO DAILY 10/04/20 10/12/20 Carvedilol [Coreg] 12.5 mg PO BID 10/04/20 10/12/20 Cholecalciferol [Vitamin D3 (25 25 mcg PO DAILY 10/04/20 10/12/20 Mcg = 1000 Iu)] Metoclopramide HCl [Reglan] 5 mg PO HS 10/04/20 10/12/20 Multivitamins, Thera [Multivitamin 1 tab PO DAILY 10/04/20 10/12/20 (formulary)] Zinc 50 mg PO DAILY 10/04/20 10/12/20 Insulin Degludec [Tresiba] 30 unit SQ DAILY 10/12/20 10/12/20 Previous Rx's Medication Instructions Recorded Gabapentin [Neurontin] 100 mg PO HS cap 05/11/20 Allergies Allergy/AdvReac Type Severity Reaction Status Date / Time lisinopril Allergy Unknown Verified 03/22/21 15:49 atorvastatin calcium AdvReac Nausea & Verified 03/22/21 15:49 [From Lipitor] Vomiting/muscle weakness losartan potassium AdvReac Nausea & Verified 03/22/21 15:49 [From Cozaar] Vomiting/hypotension tramadol AdvReac drowsiness Verified 03/22/21 15:49 Review of Systems ROS Statement: Those systems with pertinent positive or pertinent negative responses have been documented in the HPI. ROS Other: All systems not noted in ROS Statement are negative. Past Medical History Past Medical History: Asthma, Diabetes Mellitus, Dialysis, Eye Disorder, GERD/Reflux, GI Bleed, Hyperlipidemia, Hypertension, Pneumonia, Renal Disease, Vascular Disorder Additional Past Medical History / Comment(s): Bilateral pleural effusions with R side worse-bilateral thoracentisis/ R pleural pigtail cath/R side alteplase pleural instillation/decortication/cryoablation, cardiac tamponade with window, IDDM type I, diabetic since he was age 21, DKA, ESRD with hemodialysis on M/W/F, fistula right lower arm, mineral bone disease, volume overload, chronic anemia, hiatal hernia, previous history of GI bleed secondary to peptic ulcer disease, peripheral vascular disease, low back pain/DDD, osteomyelitis L foot in 2012, diabetic foot ulcers and amputations, R eye retinal detachment/surgery-vision poor, L eye cataract/blindness, recent diarrhea History of Any Multi-Drug Resistant Organisms: MRSA Date of last positivie culture/infection: 12/20/11 MDRO Source:: Left Foot Past Surgical History: Ventriculoperitoneal Shunt Additional Past Surgical History / Comment(s): A/V fistula R lower arm, renal needle bx, 2008 left great toe amp and 2013 2nd to 5th left foot toes amputated, L foot I&D, right chest mediport x2 with removal in 2010 and 2012. right eye retina reattachment sx 03/2015. EGD/colonoscopy, pericardial window for cardiac tampanode, bilateral thoracentesis, R pleural pigtail insertion/alteplase pleural instillation/thoracotomy with decortication and cryoablation, EGD, colonoscopy. Past Anesthesia/Blood Transfusion Reactions: No Reported Reaction Additional Past Anesthesia/Blood Transfusion Reaction / Comment(s): Pt states he has received blood in past without reaction. Past Psychological History: Depression Smoking Status: Never smoker Past Alcohol Use History: None Reported Past Drug Use History: None Reported - Past Family History Mother Family Medical History: Hypertension Father Family Medical History: CVA/TIA, Diabetes Mellitus, Hypertension Additional Family Medical History / Comment(s): Father is at the age of 53yrs from a CVA. General Exam Limitations: no limitations General appearance: alert, in no apparent distress Head exam: Present: atraumatic, normocephalic, normal inspection Eye exam: Present: normal appearance, PERRL, EOMI. Absent: scleral icterus, conjunctival injection, nystagmus, periorbital swelling ENT exam: Present: normal exam, normal oropharynx, mucous membranes dry Neck exam: Present: normal inspection, full ROM. Absent: tenderness, meningismus, lymphadenopathy, thyromegaly Respiratory exam: Present: rales (Bilateral bases), decreased breath sounds. Absent: respiratory distress, rhonchi, stridor, chest wall tenderness, accessory muscle use, prolonged expiratory Cardiovascular Exam: Present: bradycardia GI/Abdominal exam: Present: soft, normal bowel sounds. Absent: distended, tenderness, guarding, rebound, rigid Extremities exam: Present: full ROM, normal capillary refill, other (Left toe amputations). Absent: pedal edema, calf tenderness Right Forearm Wrist exam: Present: other (hemodialysis Fistula with thrill) Back exam: Present: normal inspection, full ROM. Absent: tenderness, CVA tenderness (R), CVA tenderness (L), muscle spasm, paraspinal tenderness, vertebral tenderness, rash noted Neurological exam: Present: alert, oriented X3, CN II-XII intact Psychiatric exam: Present: normal affect, normal mood Skin exam: Present: warm, dry, intact, normal color. Absent: rash, cyanosis, diaphoretic, erythema, petechiae, pallor, mottled Course Vital Signs 03/22/21 03/22/21 15:41 16:00 Temperature 97.3 F L Pulse Rate 57 L 57 L Respiratory 18 15 Rate Blood Pressure 110/64 110/64 O2 Sat by Pulse 94 L 97 Oximetry Medical Decision Making - Medical Decision Making Patient will be admitted for community-acquired pneumonia to Dr. Stone. Patient has received Rocephin after blood cultures done at [facility] in addition to Zithromax which is continuing to use at this time. Patient has dialysis Sunday and nephrology was placed on consult. Patient is alert and oriented and oxygen saturation is 94% on 2 L. Patient is afebrile 97.3. Case discussed with Dr Shah who is agreeable to this plan of care. Disposition Clinical Impression: Pneumonia Disposition: ADMITTED IP TO THIS [facility] Condition: Fair Referrals: Chad Trevino MD [Primary Care Provider] - 1-2 days Decision Date: 03/22/21 Decision Time: 16:15
[2021-03-22] MEDS ORDERED: NALOXONE 0.4 MG/ML 1 ML VIAL IV PRN (16:09)
[2021-03-22] MEDS ORDERED: METOCLOPRAMIDE 5 MG TAB PO PRN (19:11)
[2021-03-22] MEDS ORDERED: LORATADINE 10 MG TAB PO PRN (19:11)
[2021-03-22] MEDS ORDERED: LOPERAMIDE 2 MG CAP PO PRN (19:11)
[2021-03-22] MEDS ORDERED: MAGNESIUM HYDROXIDE 2,400 MG/10 ML CUP PO PRN (19:14)
[2021-03-22] MEDS ORDERED: CALCIUM CARBONATE 500 MG CHEWABLE PO PRN (19:14)
[2021-03-22] MEDS ORDERED: ALPRAZolam 0.25 MG TAB PO PRN (19:14)
[2021-03-22] MEDS ORDERED: LACTULOSE 20 GM/30 ML CUP PO PRN (19:14)
[2021-03-22] MEDS ORDERED: MAG HYDROX/AL HYDROX/SIMETH 30 ML CUP PO PRN (19:14)
[2021-03-22] MEDS ORDERED: MELATONIN 3 MG TABLET PO PRN (19:14)
[2021-03-22] MEDS ORDERED: DEXTROSE 50% SYRINGE 50 ML IVP ONE (20:07)
[2021-03-22 20:09] LABS: Glucose,Whole Blood 38 mg/dL (75-99)
[2021-03-22 20:09] LABS: Glucose,Whole Blood 43 mg/dL (75-99)
[2021-03-22] MEDS ORDERED: CEFEPIME 1 GM in SODIUM CHLORIDE 0.9% 50 ML IVPB STA (20:11)
--- NOTE | 2021-03-22 20:13 | P.HPIM ---
History of Present Illness H&P Date: 03/22/21 Chief Complaint: Short of breath cough History of presenting complaint: This is a 41-year-old patient follows with Dr. Trevino. Extensive medical history. Chronic stable medical conditions include asthma, diabetes, , hypertension, hyperlipidemia, history of bilateral pleural effusions, cardiac tamponade window, end-stage kidney disease on hemodialysis Sunday and Sunday , fistula in the right forearm, minimal bone disease, chronic anemia, peptic ulcer disease, peripheral arterial disease bilateral poor vision. Patient presented to [facility] for shortness of breath for 2 days. It continues family doctor's office and oxygenation saturation was in the 80%. That improved with 2 L. [facility] was found an Accu-Chek of 43. Was given glucagon and amp of D50. Patient had taken his insulin but had not eaten. Patient given IV ceftriaxone and Zithromax and transferred here. He did have his scheduled hemodialysis yesterday. Patient is a nonsmoker. Breathing and also sputum. Decreased appetite. Review of systems: GEN.: Tired EYES: Poor vision HEENT: None NECK: None RESPIRATORY: As above CARDIOVASCULAR: None GASTROINTESTINAL: None GENITOURINARY: None MUSCULOSKELETAL: None LYMPHATICS: None HEMATOLOGICAL: None PSYCHIATRY: Anxious NEUROLOGICAL: None Past medical history to include: Asthma, diabetes, GERD, peptic ulcer disease, hypertension, hyperlipidemia, bilateral pleural effusion with right-sided thoracentesis, decortication, c ardiac tamponade window, diabetes since age of 21, on hemodialysis Sunday and Sunday of the fistula in the right lower arm. Minimal bone disease, chronic anemia, hiatal hernia, peptic ulcer disease, peripheral arterial disease, DJD, osteoarthritis of the left foot in 2012, have her take foot ulcers and amputations, right eye retinal detachment, left eye Blindness MRSA infections, ventriculoperitoneal shunt, depression Social history: Lives with his mother. No history of smoking. Alcohol rarely. Did chew tobacco in the past stopped 2016 Physical examination: VITAL SIGNS: 98.5, 56, 20, 10/06 x 70, 99% on 2 L GENERAL: BMI 21.1, reclining in bed, tired EYES: Pupils equal. Conjunctiva pale. HEENT: External appearance of nose and ears normal, oral cavity grossly normal. NECK: JVD not raised; masses not palpable. HEART: First and second heart sounds are normal; no edema. LUNGS: Respiratory rate increased; some coarse breath sounds. ABDOMEN: Soft, nontender, liver spleen not palpable, no masses palpable. PSYCH: Alert and oriented x3; mood and affect tired EXTREMITIES: Right forearm arm AV fistula . Left foot second to fifth toe amputated NEUROLOGICAL: [Decreased vision, otherwise cranial nerves grossly intact, pulmonary and sensation grossly intact LYMPHATICS: No lymph nodes palpable in the axilla and neck INVESTIGATIONS, reviewed in the clinical context: Lab work from [facility] Assessment and plan: -Pneumonia, suspect gram-negative organism IV cefepime -Diabetes mellitus type 2, uncontrolled with hypoglycemia for patient not eaten earlier Follow Accu-Cheks closely -Intermittent asthma, with acute exacerbation Nevertheless bronchodilators, inhaled steroids -GERD Pepcid when necessary -Hyperlipidemia Pravachol -Essential hypertension with chronic kidney disease Hydralazine, Norvasc, chronic -Chronic kidney disease minimal bone disease -Hiatal hernia -Peripheral arterial disease -Bilateral poor vision from diabetic retinopathy -End-stage kidney disease on hemodialysis Sunday and Sunday Consult nephrology. Resume home medications. Follow Accu-Cheks closely. Hemodialysis as per schedule. IV cefepime. Bronchodilators Inhaled steroids.. Consult nephrology, pulmonary Given the complexity and severity of patient's condition expect the patient to be in the hospital at least for 2 overnights Past Medical History Past Medical History: Asthma, Diabetes Mellitus, Dialysis, Eye Disorder, GERD/Reflux, GI Bleed, Hyperlipidemia, Hypertension, Pneumonia, Renal Disease, Vascular Disorder Additional Past Medical History / Comment(s): Bilateral pleural effusions with R side worse-bilateral thoracentisis/ R pleural pigtail cath/R side alteplase pleural instillation/decortication/cryoablation, cardiac tamponade with window, IDDM type I, diabetic since he was age 21, DKA, ESRD with hemodialysis on M/W/F, fistula right lower arm, mineral bone disease, volume overload, chronic anemia, hiatal hernia, previous history of GI bleed secondary to peptic ulcer disease, peripheral vascular disease, low back pain/DDD, osteomyelitis L foot in 2012, diabetic foot ulcers and amputations, R eye retinal detachment/surgery-vision poor, L eye cataract/blindness, recent diarrhea History of Any Multi-Drug Resistant Organisms: MRSA Date of last positivie culture/infection: 12/20/11 MDRO Source:: Left Foot Past Surgical History: Ventriculoperitoneal Shunt Additional Past Surgical History / Comment(s): A/V fistula R lower arm, renal needle bx, 2008 left great toe amp and 2013 2nd to 5th left foot toes amputated, L foot I&D, right chest mediport x2 with removal in 2010 and 2012. right eye retina reattachment sx 03/2015. EGD/colonoscopy, pericardial window for cardiac tampanode, bilateral thoracentesis, R pleural pigtail insertion/alteplase pleural instillation/thoracotomy with decortication and cryoablation, EGD, colonoscopy. Past Anesthesia/Blood Transfusion Reactions: No Reported Reaction Additional Past Anesthesia/Blood Transfusion Reaction / Comment(s): Pt states he has received blood in past without reaction. Past Psychological History: Depression Additional Psychological History / Comment(s): Pt resides with his mother. He uses a cane at times,wheelchair for longer distances He no longer drives d/t vision loss. He has a glucometer. Smoking Status: Never smoker Past Alcohol Use History: None Reported Additional Past Alcohol Use History / Comment(s): Pt has hx of chewing tobacco but quit in 2016. Past Drug Use History: None Reported - Past Family History Mother Family Medical History: Hypertension Father Family Medical History: CVA/TIA, Diabetes Mellitus, Hypertension Additional Family Medical History / Comment(s): Father is at the age of 53yrs from a CVA. Medications and Allergies Home Medications Medication Instructions Recorded Confirmed Type Pravastatin Sodium [Pravachol] 40 mg PO HS 12/26/15 03/22/21 History amLODIPine [Norvasc] 10 mg PO DAILY 11/14/18 03/22/21 History Dicyclomine [Bentyl] 20 mg PO QID PRN 02/28/19 03/22/21 History Glucagon Emergency Kit 1 mg IM ONCE PRN 02/28/19 03/22/21 History ARIPiprazole [Abilify] 15 mg PO HS 04/19/20 03/22/21 History HYDROcodone/APAP 5-325MG [Calder 1 tab PO BID PRN 04/19/20 03/22/21 History 5-325] Sertraline [Zoloft] 50 mg PO DAILY 04/19/20 03/22/21 History hydrALAZINE HCL [Apresoline] 100 mg PO TID 04/19/20 03/22/21 History Loratadine [Alavert] 10 mg PO DAILY PRN 05/10/20 03/22/21 History Gabapentin [Neurontin] 100 mg PO HS cap 05/11/20 03/22/21 Rx Metoclopramide HCl [Reglan] 5 mg PO DAILY PRN 10/04/20 03/22/21 History Insulin Degludec [Tresiba] 30 unit SQ DAILY 10/12/20 03/22/21 History Carvedilol [Coreg] 12.5 mg PO BID 03/22/21 03/22/21 History Loperamide HCl [Loperamide] 2 mg PO QID PRN 03/22/21 03/22/21 History Multivitamins, Thera [Multivitamin 1 tab PO DAILY 03/22/21 03/22/21 History (formulary)] Allergies Allergy/AdvReac Type Severity Reaction Status Date / Time lisinopril Allergy Unknown Verified 03/22/21 17:03 atorvastatin calcium AdvReac Nausea & Verified 03/22/21 17:03 [From Lipitor] Vomiting/muscle weakness losartan potassium AdvReac Nausea & Verified 03/22/21 17:03 [From Cozaar] Vomiting/hypotension tramadol AdvReac drowsiness Verified 03/22/21 17:03 Physical Exam Vitals: Vital Signs Temp Pulse Pulse Resp BP BP Pulse Ox 03/22/21 18:27 57 L 16 182/86 99 03/22/21 17:00 98.5 F 56 L 20 126/70 99 03/22/21 16:00 57 L 15 110/64 97 03/22/21 15:41 97.3 F L 57 L 18 110/64 94 L Intake and Output 03/22/21 03/22/21 03/22/21 06:59 14:59 22:59 Other: Weight 72.575 kg
[2021-03-22 20:23] LABS: Glucose,Whole Blood 131 mg/dL (75-99)
[2021-03-22] MEDS: PRAVASTATIN SODIUM 40 MG TAB PO SCH (20:41)
[2021-03-22] MEDS: hydrALAZINE HCL 50 MG TAB PO SCH (20:41)
[2021-03-22] MEDS: GABAPENTIN 100 MG CAP PO SCH (20:41)
[2021-03-22] MEDS: carvediloL 12.5 MG TAB PO SCH (20:41)
[2021-03-22] MEDS: ARIPiprazole 15 MG TAB PO SCH (20:49)
[2021-03-22] MEDS: BUDESONIDE 1 MG/2 ML NEBU INHALATION SCH (21:21)
[2021-03-22] MEDS: ALBUTEROL NEBULIZED 2.5 MG/3 ML INHALATION SCH (21:21)
[2021-03-22] MEDS: INSULIN ASPART (NovoLOG) 100 UNIT/ML VIAL SQ SCH (21:38)
[2021-03-22 21:48] LABS: Glucose,Whole Blood 94 mg/dL (75-99)
[2021-03-22 22:54] LABS: Glucose,Whole Blood 208 mg/dL (75-99)
[2021-03-23 02:05] LABS: Glucose,Whole Blood 153 mg/dL (75-99)
[2021-03-23 05:39] LABS: Glucose,Whole Blood 54 mg/dL (75-99)
[2021-03-23] MEDS: INSULIN ASPART (NovoLOG) 100 UNIT/ML VIAL SQ SCH ×4 (05:47→21:31)
[2021-03-23] MEDS: INSULIN DETEMIR (LEVEMIR) 100 UNIT/ML SYR SQ SCH ×2 (05:47→12:20)
[2021-03-23 05:54] LABS: Glucose,Whole Blood 66 mg/dL (75-99)
[2021-03-23 06:11] LABS: Glucose,Whole Blood 63 mg/dL (75-99)
[2021-03-23 06:26] LABS: Glucose,Whole Blood 89 mg/dL (75-99)
[2021-03-23] MEDS: ALBUTEROL NEBULIZED 2.5 MG/3 ML INHALATION SCH ×4 (07:37→21:02)
[2021-03-23] MEDS: BUDESONIDE 1 MG/2 ML NEBU INHALATION SCH ×2 (07:38→21:02)
[2021-03-23 08:09] LABS: Basophils % (A) 0 %; Eosinophils # (A) 0.2 k/uL (0-0.7); Eosinophils % (A) 2 %; HCT 33.5 % (39.0-53.0); HGB 10.4 gm/dL (13.0-17.5); Hypochromasia Slight; Lymphocytes # (A) 1.2 k/uL (1.0-4.8); Lymphocytes % (A) 14 %; MCH 29.3 pg (25.0-35.0); MCHC 31.1 g/dL (31.0-37.0); Mean Platelet Volume 8.7; Monocytes # (A) 0.4 k/uL (0-1.0); Monocytes % (A) 4 %; Neutrophils # (A) 6.9 k/uL (1.3-7.7); Neutrophils % (A) 77 %; Platelet Count 122 k/uL (150-450); RBC 3.56 m/uL (4.30-5.90); RDW 15.4 % (11.5-15.5); WBC 8.9 k/uL (3.8-10.6)
[2021-03-23] MEDS: SERTRALINE 50 MG TAB PO SCH (08:14)
[2021-03-23] MEDS: carvediloL 12.5 MG TAB PO SCH ×2 (08:15→19:29)
[2021-03-23] MEDS: MULTIVITAMINS, THERA 1 EACH TAB PO SCH (08:15)
[2021-03-23] MEDS: hydrALAZINE HCL 50 MG TAB PO SCH ×3 (08:15→19:32)
[2021-03-23] MEDS: amLODIPine 10 MG TAB PO SCH (08:15)
[2021-03-23 08:17] LABS: Calcium 8.4 mg/dL (8.4-10.2); Potassium 4.8 mmol/L (3.5-5.1)
--- NOTE | 2021-03-23 08:17 | XR ---
EXAMINATION TYPE: XR chest 2V DATE OF EXAM: 03/23/2021 COMPARISON: Chest x-ray 03/22/2021 from outside institution, 05/06/2019 HISTORY: Pneumonia, pleural effusions TECHNIQUE: Frontal and lateral views of the chest are obtained. FINDINGS: Findings are similar to prior exam. There is no evident pneumothorax. Blunting the costoph renic angles, obscured hemidiaphragms persist. Heart remains enlarged, interstitium is prominent. The re are overlying leads. IMPRESSION: Bibasilar effusions and associated atelectasis, correlate for pneumonia. There is cardio megaly. Difficult to exclude interstitial edema, component of congestive heart failure.
[2021-03-23] MEDS: DICYCLOMINE 20 MG TAB PO PRN ×2 (08:18→21:24)
[2021-03-23] MEDS ORDERED: INSULIN DETEMIR (LEVEMIR) 100 UNIT/ML SYR SQ SCH (09:00)
[2021-03-23 11:48] LABS: Glucose,Whole Blood 363 mg/dL (75-99)
[2021-03-23] MEDS: ONDANSETRON 4 MG/2 ML VIAL IVP PRN (12:36)
--- NOTE | 2021-03-23 12:40 | P.CNPUL ---
History of Present Illness Consult date: 03/23/21 Requesting physician: Kristopher Stone Reason for consult: dyspnea, pleural effusion Chief complaint: Shortness of breath History of present illness: This a 41-year-old male patient of Dr. Trevino with history of end-stage renal disease on hemodialysis 3 times a week, Sunday, diabetes mellitus type I with previous episodes of DKA, hypertension, hyperlipidemia, chronic anemia, history of GI bleed secondary to peptic ulcer disease, peripheral vascular disease, diabetic foot ulcers and amputation of digits from his left foot, history of cardiac tamponade with pericardial window, history of loculated right pleural effusion with previous pigtail catheter placement and alteplase infusions in 2019. He presented here yesterday from [place] with complaints of increasing shortness of breath, cough. He is oliguric. He has been compliant with his hemodialysis on Fridays. Chest x-ray revealed again evidence of the chronic right sided pleural effusion. He is a lifelong nonsmoker. No fever. No chills or night sweats. Clear productive sputum. White count 8.9. Hemoglobin 10.4. Platelet count 122. Sodium 132. Potassium 4.8. Creatinine 6.52. ProBNP 77,100. He is due for dialysis today. Presently, he is resting quite comfortably in bed. Awake and alert in no acute distress. Maintaining O2 saturations up to 100% on 2 L/m per nasal cannula. Afebrile. He's been initiated on cefepime and bronchodilators. Chest x-ray reveals bibasilar effusion associated atelectasis. Cardiomegaly. Difficult to exclude interstitial edema. Echocardiogram pending. Pro-calcitonin pending. Review of Systems REVIEW OF SYSTEMS: CONSTITUTIONAL: Denies any recent significant weight loss or weight gain. EYES: Denies change in vision. EARS, NOSE, MOUTH, THROAT: Denies headaches, denies sore throat. CARDIOVASCULAR: Denies chest pain, palpitations or syncopal episodes. RESPIRATORY: Positive for shortness of breath, cough, congestion no hemoptysis. GASTROINTESTINAL: Denies change in appetite, denies abdominal pain GENITOURINARY: Denies hematuria, denies infections. MUSKULOSKELETAL: Denies pain, denies swelling. INTEGUMENTARY: Denies rash, denies eczema. NEUROLOGICAL: Denies recent memory loss, no recent seizure activity. PSYCHIATRIC: Denies anxiety, denies depression. HEMATOLOGIC/LYMPHATIC: Denies anemia, denies enlarged lymph nodes. Past Medical History Past Medical History: Asthma, Diabetes Mellitus, Dialysis, Eye Disorder, GERD/Reflux, GI Bleed, Hyperlipidemia, Hypertension, Pneumonia, Renal Disease, Vascular Disorder Additional Past Medical History / Comment(s): Bilateral pleural effusions with R side worse-bilateral thoracentisis/ R pleural pigtail cath/R side alteplase pleural instillation/decortication/cryoablation, cardiac tamponade with window, IDDM type I, diabetic since he was age 21, DKA, ESRD with hemodialysis on M/W/F, fistula right lower arm, mineral bone disease, volume overload, chronic anemia, hiatal hernia, previous history of GI bleed secondary to peptic ulcer disease, peripheral vascular disease, low back pain/DDD, osteomyelitis L foot in 2012, diabetic foot ulcers and amputations, R eye retinal detachment/surgery-vision po or, L eye cataract/blindness, recent diarrhea History of Any Multi-Drug Resistant Organisms: MRSA Date of last positivie culture/infection: 12/20/11 MDRO Source:: Left Foot Past Surgical History: Ventriculoperitoneal Shunt Additional Past Surgical History / Comment(s): A/V fistula R lower arm, renal needle bx, 2008 left great toe amp and 2013 2nd to 5th left foot toes amputated, L foot I&D, right chest mediport x2 with removal in 2010 and 2012. right eye retina reattachment sx 03/2015. EGD/colonoscopy, pericardial window for cardiac tampanode, bilateral thoracentesis, R pleural pigtail insertion/alteplase pleural instillation/thoracotomy with decortication and cryoablation, EGD, colonoscopy. Past Anesthesia/Blood Transfusion Reactions: No Reported Reaction Additional Past Anesthesia/Blood Transfusion Reaction / Comment(s): Pt states he has received blood in past without reaction. Past Psychological History: Depression Additional Psychological History / Comment(s): Pt resides with his mother. He uses a cane at times,wheelchair for longer distances He no longer drives d/t vision loss. He has a glucometer. Smoking Status: Never smoker Past Alcohol Use History: None Reported Additional Past Alcohol Use History / Comment(s): Pt has hx of chewing tobacco but quit in 2016. Past Drug Use History: None Reported - Past Family History Mother Family Medical History: Hypertension Father Family Medical History: CVA/TIA, Diabetes Mellitus, Hypertension Additional Family Medical History / Comment(s): Father is at the age of 53yrs from a CVA. Medications and Allergies Home Medications Medication Instructions Recorded Confirmed Type Pravastatin Sodium [Pravachol] 40 mg PO HS 12/26/15 03/22/21 History amLODIPine [Norvasc] 10 mg PO DAILY 11/14/18 03/22/21 History Dicyclomine [Bentyl] 20 mg PO QID PRN 02/28/19 03/22/21 History Glucagon Emergency Kit 1 mg IM ONCE PRN 02/28/19 03/22/21 History ARIPiprazole [Abilify] 15 mg PO HS 04/19/20 03/22/21 History HYDROcodone/APAP 5-325MG [[place] 1 tab PO BID PRN 04/19/20 03/22/21 History 5-325] Sertraline [Zoloft] 50 mg PO DAILY 04/19/20 03/22/21 History hydrALAZINE HCL [Apresoline] 100 mg PO TID 04/19/20 03/22/21 History Loratadine [Alavert] 10 mg PO DAILY PRN 05/10/20 03/22/21 History Gabapentin [Neurontin] 100 mg PO HS cap 05/11/20 03/22/21 Rx Metoclopramide HCl [Reglan] 5 mg PO DAILY PRN 10/04/20 03/22/21 History Insulin Degludec [Tresiba] 30 unit SQ DAILY 10/12/20 03/22/21 History Carvedilol [Coreg] 12.5 mg PO BID 03/22/21 03/22/21 History Loperamide HCl [Loperamide] 2 mg PO QID PRN 03/22/21 03/22/21 History Multivitamins, Thera [Multivitamin 1 tab PO DAILY 03/22/21 03/22/21 History (formulary)] Allergies Allergy/AdvReac Type Severity Reaction Status Date / Time lisinopril Allergy Unknown Verified 03/22/21 17:03 atorvastatin calcium AdvReac Nausea & Verified 03/22/21 17:03 [From Lipitor] Vomiting/muscle weakness losartan potassium AdvReac Nausea & Verified 03/22/21 17:03 [From Cozaar] Vomiting/hypotension tramadol AdvReac drowsiness Verified 03/22/21 17:03 Physical Exam Vitals: Vital Signs Temp Pulse Pulse Resp BP BP Pulse Ox 03/23/21 11:21 55 L 19 166/89 100 03/23/21 08:00 97.5 F L 59 L 19 176/87 100 03/23/21 07:52 65 03/23/21 07:38 62 03/23/21 04:45 97.8 F 53 L 19 133/60 95 03/22/21 22:55 97.6 F 56 L 18 120/55 99 03/22/21 21:38 62 03/22/21 21:21 58 L 03/22/21 20:30 97.7 F 52 L 16 151/73 100 03/22/21 18:27 57 L 16 182/86 99 03/22/21 17:00 98.5 F 56 L 20 126/70 99 03/22/21 16:00 57 L 15 110/64 97 03/22/21 15:41 97.3 F L 57 L 18 110/64 94 L Intake and Output 03/22/21 03/23/21 03/23/21 22:59 06:59 14:59 Intake Total 120 Balance 120 Intake: Oral 120 Other: Voiding Method Toilet Toilet Toilet # Voids 2 # Bowel Movements 2 1 Weight 72.575 kg 48 kg GENERAL EXAM: Alert, pleasant 41-year-old gentleman, on 2 L nasal cannula, comfortable in no apparent distress. HEAD: Normocephalic. EYES: Normal reaction of pupils, equal size. NOSE: Clear with pink turbinates. THROAT: No erythema or exudates. NECK: No masses, no JVD. CHEST: No chest wall deformity. LUNGS: Equal air entry with crackles in posterior bases right greater than left. CVS: S1 and S2 normal with no audible murmur, regular rhythm. ABDOMEN: No hepatosplenomegaly, normal bowel sounds, no guarding or rigidity. SPINE: No scoliosis or deformity SKIN: No rashes CENTRAL NERVOUS SYSTEM: No focal deficits, tone is normal in all 4 extremities. EXTREMITIES: Right upper extremity HD shunt.There is no peripheral edema. No clubbing, no cyanosis. Peripheral pulses are intact. Results - Laboratory Findings CBC and BMP: 03/23/21 07:25 03/23/21 07:25 Abnormal lab findings: Abnormal Labs 03/22/21 03/22/21 03/22/21 20:06 20:07 20:20 RBC Hgb Hct Plt Count Sodium Chloride BUN Creatinine Glucose POC Glucose (mg/dL) 38 L 43 L 131 H 03/22/21 03/22/21 03/23/21 20:38 22:52 02:03 RBC Hgb Hct Plt Count Sodium Chloride BUN Creatinine Glucose 100 H POC Glucose (mg/dL) 208 H 153 H 03/23/21 03/23/21 03/23/21 05:38 05:53 06:10 RBC Hgb Hct Plt Count Sodium Chloride BUN Creatinine Glucose POC Glucose (mg/dL) 54 L 66 L 63 L 03/23/21 03/23/21 03/23/21 07:25 07:25 11:46 RBC 3.56 L Hgb 10.4 L Hct 33.5 L Plt Count 122 L Sodium 132 L Chloride 92 L BUN 56 H Creatinine 6.52 H Glucose 181 H POC Glucose (mg/dL) 363 H - Diagnostic Findings Chest x-ray: image reviewed Assessment and Plan Assessment: 1 Dyspnea secondary to fluid volume overload, possible diastolic congestive heart failure, chronic right loculated effusion 2 History of loculated right pleural effusion with previous pigtail catheter placement and alteplase infusions. 3 End stage renal disease on hemodialysis Sunday, compliant 4 Hypertension 5 Hyperlipidemia 6 History of type 1 diabetes mellitus with previous history of DKA, diabetic retinopathy and neuropathy 7 Peripheral vascular disease with history of diabetic ulcers and amputations of digits on the left foot 8 End-stage renal disease on hemodialysis 9 History of GI bleeding 10 GERD/reflux Plan: The patient was seen and evaluated by Dr. Tarango Chest x-ray and labs reviewed Echocardiogram pending Pro calcitonin pending Continue cefepime for now We will continue to follow and make further recommendations based on his clinical status I, the cosigning physician, performed a history & physical examination of the p atient. Lungs sounds with crackles in posterior bases right greater than left. Maintaining good O2 saturations in the 90s on 2 L/m per nasal cannula. I discussed the assessment and plan of care with my nurse practitioner, Alisha Hodges. I attest to the above consultation as dictated by her. Time with Patient: Greater than 30
--- NOTE | 2021-03-23 12:40 | CONS ---
CONSULTATION REASON FOR CONSULTATION: End-stage renal disease. HISTORY OF PRESENT ILLNESS: Patient is a 41-year-old male with end-stage renal disease, on hemodialysis on a Sunday, Sunday, Sunday schedule. Patient was admitted to the hospital with complaints of increased weakness, not feeling well. He denied any fevers, chills, nausea, vomiting. He had some cough. He tolerated his dialysis fairly well on Sunday but had to come off early as he was not feeling well. Chest x-ray shows evidence of bibasilar effusions, possible pneumonia. Currently patient is maintained on antibiotics. PAST MEDICAL HISTORY: End-stage renal disease, anemia of chronic disease, CKD mineral bone disorder, type 2 diabetes, retinopathy, asthma, history of pneumonia requiring decortication thoracentesis, history of pericardial effusion, cardiac tamponade, type 1 diabetes, neuropathy, retinopathy, retinal detachment, cataracts. 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 SOCIAL HISTORY: Negative for smoking. No history of drug abuse or alcohol abuse. MEDICATIONS: Medications prior to admission included Pravachol, Norvasc, Bentyl, Abilify, Zoloft, hydralazine, Alavert, Neurontin, Reglan, Tresiba, Coreg, loperamide, multivitamins. ALLERGIES: LISINOPRIL, ATORVASTATIN, COZAAR, TRAMADOL. PHYSICAL EXAMINATION: Patient is currently comfortable, awake, not in any acute distress. Alert and oriented x3. Blood pressure 176/87, heart rate 59 per minute, he is afebrile. Examination of the heart S1, S2. Examination of the lungs, bilateral breath sounds are heard. Abdomen is soft, nontender. [employer] SUPERINTENDENT exam grossly intact. LABS: Show hemoglobin 10.4, white cell count 8.9, sodium 132, potassium 4.8. ASSESSMENT: 1. End-stage renal disease, on hemodialysis on a Sunday, Sunday, Sunday schedule. 2. Pneumonia maintained on antibiotics, community-acquired. 3. Chronic kidney disease, mineral bone disorder. 4. Hypertension. PLAN: Hemodialysis today. Goal UF of about 1 L. Encourage increased oral intake. Continue antibiotics. MMODL / IJN: [id number] /
[2021-03-23 13:33] VITALS: BMI 13.9
[2021-03-23 16:54] LABS: Glucose,Whole Blood 85 mg/dL (75-99)
[2021-03-23] MEDS: ARIPiprazole 15 MG TAB PO SCH (19:29)
[2021-03-23] MEDS: GABAPENTIN 100 MG CAP PO SCH (19:29)
[2021-03-23] MEDS: PRAVASTATIN SODIUM 40 MG TAB PO SCH (19:29)
[2021-03-23] MEDS: HYDROcodone/APAP 5-325MG 1 EACH TAB PO PRN (19:31)
--- NOTE | 2021-03-23 19:58 | P.PN ---
Progress Note - Text Progress Note Date: 03/23/21 Chief Complaint: Short of breath cough History of presenting complaint: This is a 41-year-old patient follows with Dr. Trevino. Extensive medical history. Chronic stable medical conditions include asthma, diabetes, , hypertension, hyperlipidemia, history of bilateral pleural effusions, cardiac tamponade window, end-stage kidney disease on hemodialysis Sunday and Sunday , fistula in the right forearm, minimal bone disease, chronic anemia, peptic ulcer disease, peripheral arterial disease bilateral poor vision. Patient presented to [facility] for shortness of breath for 2 days. It continues family doctor's office and oxygenation saturation was in the 80%. That improved with 2 L. Head [place] [facility] was found an Accu-Chek of 43. Was given glucagon and amp of D50. Patient had taken his insulin but had not eaten. Patient given IV ceftriaxone and Zithromax and transferred here. He did have his scheduled hemodialysis yesterday. Patient is a nonsmoker. Breathing and also sputum. Decreased appetite. Admitted with pneumonia. He started on cefepime. March 23: Sitting up in bed. We'll give bit better. Appetite improving. Had about 50% of his lunch. Some cough. Some shortness of breath Review of systems: Was done for constitutional, cardiovascular, GI, pulmonary. relevant finding as above Active Medications Acetaminophen (Acetaminophen Tab 325 Mg Tab) 650 mg PO Q6HR PRN PRN Reason: Mild Pain or Fever > 100.5 Hydrocodone Bitart/Acetaminophen (Hydrocodone/Apap 5-325mg 1 Each Tab) 1 each PO BID PRN PRN Reason: Pain Last Admin: 03/23/21 19:31 Dose: 1 each Documented by: Al Hydroxide/Mg Hydroxide (Mag Hydrox/Al Hydrox/Simeth 30 Ml Cup) 15 ml PO Q6HR PRN PRN Reason: Indigestion Albuterol Sulfate (Albuterol Nebulized 2.5 Mg/3 Ml) 2.5 mg INHALATION RT-QID [facility] Last Admin: 03/23/21 15:54 Dose: 2.5 mg Documented by: Alprazolam (Alprazolam 0.25 Mg Tab) 0.25 mg PO Q6HR PRN PRN Reason: Anxiety Amlodipine Besylate (Amlodipine 10 Mg Tab) 10 mg PO DAILY [facility] Last Admin: 03/23/21 08:15 Dose: 10 mg Documented by: Aripiprazole (Aripiprazole 15 Mg Tab) 15 mg PO [facility] Last Admin: 03/23/21 19:29 Dose: 15 mg Documented by: Budesonide (Budesonide 1 Mg/2 Ml Nebu) 1 mg INHALATION RT-BID [facility] Last Admin: 03/23/21 07:38 Dose: 1 mg Documented by: Calcium Carbonate/Glycine (Calcium Carbonate 500 Mg Chewable) 1,000 mg PO Q4HR PRN PRN Reason: Dyspepsia Carvedilol (Carvedilol 12.5 Mg Tab) 12.5 mg PO BID [facility] Last Admin: 03/23/21 19:29 Dose: 12.5 mg Documented by: Dicyclomine HCl (Dicyclomine 20 Mg Tab) 20 mg PO QID PRN PRN Reason: GI Upset Last Admin: 03/23/21 08:18 Dose: 20 mg Documented by: Gabapentin (Gabapentin 100 Mg Cap) 100 mg PO [facility] Last Admin: 03/23/21 19:29 Dose: 100 mg Documented by: Hydralazine HCl (Hydralazine Hcl 50 Mg Tab) 100 mg PO TID [facility] Last Admin: 03/23/21 19:32 Dose: 100 mg Documented by: Cefepime HCl 0.5 gm/ Sodium (Chloride) 50 mls @ 12.5 mls/hr IVPB DAILY@2100 [facility] Last Admin: 03/23/21 19:29 Dose: 12.5 mls/hr Documented by: Insulin Aspart (Insulin Aspart (Novolog) 100 Unit/Ml Vial) 0 unit SQ ACHS [facility]; Protocol Last Admin: 03/23/21 18:32 Dose: Not Given Documented by: Insulin Detemir (Insulin Detemir (Levemir) 100 Unit/Ml Syr) 24 unit SQ DAILY@0700 [facility] Last Admin: 03/23/21 12:20 Dose: 24 unit Documented by: Lactulose (Lactulose 20 Gm/30 Ml Cup) 20 gm PO DAILY PRN PRN Reason: Constipation Loperamide HCl (Loperamide 2 Mg Cap) 2 mg PO QID PRN PRN Reason: Diarrhea Loratadine (Loratadine 10 Mg Tab) 10 mg PO DAILY PRN PRN Reason: Allergy Symptoms Magnesium Hydroxide (Magnesium Hydroxide 2,400 Mg/10 Ml Cup) 2,400 mg PO DAILY PRN PRN Reason: Constipation Melatonin (Melatonin 3 Mg Tablet) 3 mg PO HS PRN PRN Reason: Insomnia Metoclopramide HCl (Metoclopramide 5 Mg Tab) 5 mg PO DAILY PRN PRN Reason: Nausea Multivitamins (Multivitamins, Thera 1 Each Tab) 1 each PO DAILY [facility] Last Admin: 03/23/21 08:15 Dose: 1 each Documented by: Naloxone HCl (Naloxone 0.4 Mg/Ml 1 Ml Vial) 0.2 mg IV Q2M PRN PRN Reason: Opioid Reversal Ondansetron HCl (Ondansetron 4 Mg/2 Ml Vial) 4 mg IVP Q8HR PRN PRN Reason: Nausea And Vomiting Last Admin: 03/23/21 12:36 Dose: 4 mg Documented by: Pravastatin Sodium (Pravastatin Sodium 40 Mg Tab) 40 mg PO HS [facility] Last Admin: 03/23/21 19:29 Dose: 40 mg Documented by: Sertraline HCl (Sertraline 50 Mg Tab) 50 mg PO DAILY [facility] Last Admin: 03/23/21 08:14 Dose: 50 mg Documented by: Past medical history to include: Asthma, diabetes, GERD, peptic ulcer disease, hypertension, hyperlipidemia, bilateral pleural effusion with right-sided thoracentesis, decortication, cardiac tamponade window, diabetes since age of 21, on hemodialysis Sunday and Sunday of the fistula in the right lower arm. Minimal bone disease, chronic anemia, hiatal hernia, peptic ulcer disease, peripheral arterial disease, DJD, osteoarthritis of the left foot in 2012, have her take foot ulcers and amputations, right eye retinal detachment, left eye Blindness MRSA infections, ventriculoperitoneal shunt, depression Social history: Lives with his mother. No history of smoking. Alcohol rarely. Did chew tobacco in the past stopped 2016 Physical examination: VITAL SIGNS: Afebrile, 60, 18, 150/76, 99% on 2 L GENERAL: BMI 21.1, reclining in bed, looking less tired EYES: Pupils equal. Conjunctiva pale. HEENT: External appearance of nose and ears normal, oral cavity grossly normal. NECK: JVD not raised; masses not palpable. HEART: First and second heart sounds are normal; no edema. LUNGS: Respiratory rate increased; decreased coarse breath sounds. ABDOMEN: Soft, nontender, liver spleen not palpable, no masses palpable. PSYCH: Alert and oriented x3; mood and affect tired EXTREMITIES: Right forearm arm AV fistula . Left foot second to fifth toe ampu tated NEUROLOGICAL: [Decreased vision, INVESTIGATIONS, reviewed in the clinical context: March 23: WBC 8.9 hemoglobin 10.4 platelets 122 sodium 132 potassium 4.8 BUN 56 creatinine 6.5 to procalcitonin 11.39 Chest x-ray film personally reviewed by me-infiltrates and pleural effusion Lab work from [facility] Assessment and plan: -Pneumonia, suspect gram-negative organism: Slow to respond IV cefepime -Diabetes mellitus type 2, uncontrolled with hypoglycemia and hyperglycemia Follow Accu-Cheks closely -Intermittent asthma, with acute exacerbation bronchodilators, inhaled steroids -History of loculated right pleural effusion previous pigtail catheter placement and alteplase infusion -GERD Pepcid when necessary -Hyperlipidemia Pravachol -Essential hypertension with chronic kidney disease Hydralazine, Norvasc, -Chronic kidney disease minimal bone disease -Hiatal hernia -Peripheral arterial disease Pravachol, and baby aspirin -Bilateral poor vision from diabetic retinopathy -End-stage kidney disease on hemodialysis Sunday and Sunday Hemodialysis today. 1 L removed. Hemodialysis today. Continue IV cefepime. Continue bronchodilators and his steroids. Other medications to continue. Discussed with the patient.
[2021-03-23 20:02] LABS: Glucose,Whole Blood 76 mg/dL (75-99)
[2021-03-23] MEDS ORDERED: CEFEPIME 0.5 GM in SODIUM CHLORIDE 0.9% 50 ML IVPB SCH (21:00)
[2021-03-24 02:01] LABS: Glucose,Whole Blood 74 mg/dL (75-99)
[2021-03-24] MEDS: ACETAMINOPHEN TAB 325 MG TAB PO PRN (02:35)
[2021-03-24 03:55] LABS: Glucose,Whole Blood 84 mg/dL (75-99)
[2021-03-24 06:11] LABS: Glucose,Whole Blood 95 mg/dL (75-99)
[2021-03-24] MEDS: INSULIN ASPART (NovoLOG) 100 UNIT/ML VIAL SQ SCH ×4 (06:25→21:01)
[2021-03-24] MEDS: BUDESONIDE 1 MG/2 ML NEBU INHALATION SCH ×2 (07:41→20:30)
[2021-03-24] MEDS: ALBUTEROL NEBULIZED 2.5 MG/3 ML INHALATION SCH ×4 (07:41→20:29)
[2021-03-24 08:01] LABS: Calcium 8.2 mg/dL (8.4-10.2); Potassium 4.6 mmol/L (3.5-5.1)
[2021-03-24] MEDS: MULTIVITAMINS, THERA 1 EACH TAB PO SCH (09:00)
[2021-03-24] MEDS: ONDANSETRON 4 MG/2 ML VIAL IVP PRN (09:00)
[2021-03-24] MEDS: hydrALAZINE HCL 50 MG TAB PO SCH ×3 (09:01→20:03)
[2021-03-24] MEDS: carvediloL 12.5 MG TAB PO SCH ×2 (09:01→20:02)
[2021-03-24] MEDS: SERTRALINE 50 MG TAB PO SCH (09:01)
[2021-03-24] MEDS: amLODIPine 10 MG TAB PO SCH (09:01)
[2021-03-24] MEDS: DICYCLOMINE 20 MG TAB PO PRN ×2 (09:01→20:02)
[2021-03-24] MEDS: HYDROcodone/APAP 5-325MG 1 EACH TAB PO PRN ×2 (09:01→20:02)
[2021-03-24] MEDS: INSULIN DETEMIR (LEVEMIR) 100 UNIT/ML SYR SQ SCH (09:03)
--- NOTE | 2021-03-24 11:15 | P.PN ---
Subjective Progress Note Date: 03/24/21 This a 41-year-old male patient of Dr. Trevino with history of end-stage renal disease on hemodialysis 3 times a week, Sunday, diabetes mellitus type I with previous episodes of DKA, hypertension, hyperlipidemia, chronic anemia, history of GI bleed secondary to peptic ulcer disease, peripher al vascular disease, diabetic foot ulcers and amputation of digits from his left foot, history of cardiac tamponade with pericardial window, history of loculated right pleural effusion with previous pigtail catheter placement and alteplase infusions in 2019. He presented here yesterday from [facility] with complaints of increasing shortness of breath, cough. He is oliguric. He has been compliant w ith his hemodialysis on Fridays. Chest x-ray revealed again evidence of the chronic right sided pleural effusion. He is a lifelong nonsmoker. No fever. No chills or night sweats. Clear productive sputum. White count 8.9. Hemoglobin 10.4. Platelet count 122. Sodium 132. Potassium 4.8. Creatinine 6.52. ProBNP 77,100. He is due for dialysis today. Presently, he is resting quite comfortably in bed. Awake and alert in no acute distress. Maintaining O2 saturations up to 100% on 2 L/m per nasal cannula. Afebrile. He's been initiated on cefepime and bronchodilators. Chest x-ray reveals bibasilar effusion associated atelectasis. Cardiomegaly. Difficult to exclude interstitial edema. Echocardiogram pending. Pro-calcitonin pending. The patient is seen today 03/24/2021 in follow-up on the selective care unit. He is currently awake and alert in no acute distress. Breathing easier today compared to yesterday. Currently maintaining good O2 saturation in the 90s on room air. He did receive hemodialysis yesterday. Sodium 136. Potassium 4.6. Creatinine 5.00. Glucose 109. ProBNP 77,000. Pro-calcitonin 11.3. He remains on bronchodilators, antibiotics. Objective - Vital Signs Vital signs: Vital Signs Temp 98.1 F 03/23/21 23:40 Pulse 73 03/24/21 07:55 Resp 17 03/24/21 03:50 BP 161/73 03/24/21 03:50 Pulse Ox 99 03/24/21 03:50 Intake & Output 03/23/21 03/24/21 03/24/21 18:59 06:59 18:59 Intake Total 480 250 Output Total 1030 Balance -550 250 Weight 48 kg 73.1 kg Intake: Oral 480 250 Output: Emesis 30 Hemodialysis 1000 Other: Voiding Method Toilet Toilet # Voids 1 # Bowel Movements 1 1 - Exam GENERAL EXAM: Alert, very pleasant 41-year-old male patient, on 2 L nasal cannula, comfortable in no apparent distress. HEAD: Normocephalic. EYES: Normal reaction of pupils, equal size. NOSE: Clear with pink turbinates. THROAT: No erythema or exudates. NECK: No masses, no JVD. CHEST: No chest wall deformity. LUNGS: Equal air entry with crackles in posterior bases right greater than left. CVS: S1 and S2 normal with no audible murmur, regular rhythm. ABDOMEN: No hepatosplenomegaly, normal bowel sounds, no guarding or rigidity. SPINE: No scoliosis or deformity SKIN: No rashes CENTRAL NERVOUS SYSTEM: No focal deficits, tone is normal in all 4 extremities. EXTREMITIES: Right upper extremity HD shunt.There is no peripheral edema. No clubbing, no cyanosis. Peripheral pulses are intact. - Labs CBC & Chem 7: 03/23/21 07:25 03/24/21 07:06 Labs: Abnormal Lab Results - Last 24 Hours (Table) 03/23/21 03/23/21 03/24/21 Range/Units 07:25 11:46 01:59 Sodium (137-145) mmol/L Chloride (98-107) mmol/L BUN (9-20) mg/dL Creatinine (0.66-1.25) mg/dL Glucose (74-99) mg/dL POC Glucose (mg/dL) 363 H 74 L (75-99) mg/dL Calcium (8.4-10.2) mg/dL Procalcitonin 11.39 H (0.02-0.09) ng/mL 03/24/21 Range/Units 07:06 Sodium 136 L (137-145) mmol/L Chloride 97 L (98-107) mmol/L BUN 35 H (9-20) mg/dL Creatinine 5.00 H (0.66-1.25) mg/dL Glucose 109 H (74-99) mg/dL POC Glucose (mg/dL) (75-99) mg/dL Calcium 8.2 L (8.4-10.2) mg/dL Procalcitonin (0.02-0.09) ng/mL Assessment and Plan Assessment: 1 Dyspnea secondary to fluid volume overload, possible diastolic congestive heart failure, chronic right loculated effusion 2 History of loculated right pleural effusion with previous pigtail catheter placement and alteplase infusions. 3 End stage renal disease on hemodialysis Sunday, compliant 4 Hypertension 5 Hyperlipidemia 6 History of type 1 diabetes mellitus with previous history of DKA, diabetic retinopathy and neuropathy 7 Peripheral vascular disease with history of diabetic ulcers and amputations of digits on the left foot 8 End-stage renal disease on hemodialysis 9 History of GI bleeding 10 GERD/reflux Plan: The patient was seen and evaluated by Dr. Sukhdeep Tariq from the pulmonary standpoint, okay for discharge Complete a course of antibiotics in the form of Augmentin I, the cosigning physician, performed a history & physical examination of the patient. Lungs sounds with crackles in posterior bases right greater than left. Maintaining good O2 saturations in the 90s on 2 L/m per nasal cannula. I discussed the assessment and plan of care with my nurse practitioner, Alisha Hodges. I attest to the above note as dictated by her.
--- NOTE | 2021-03-24 12:00 | ECHOF ---
Referral Reason:hx chf, elevated MEASUREMENTS -------- HEIGHT: 180.3 cm WEIGHT: 47.6 kg BP: IVSd: 1.5 cm (0.6 - 1.1) LVIDd: 4.7 cm (3.9 - 5.3) LVPWd: 1.8 cm (0.6 - 1.1) EDV(Teich): 101 ml IVSs: 1.7 cm LVIDs: 3.1 cm LVPWs: 2.5 cm %IVS Thck: 20 % ESV(Teich): 36 ml EF(Teich): 64 % %FS: 35 % SV(Teich): 64 ml RVIDd: 2.4 cm (< 3.3) IVC: 20.44 mm Ao Diam: 3.3 cm (2.0 - 3.7) LA Diam: 3.8 cm (2.7 - 3.8) AV Cusp: 2.1 cm (1.5 - 2.6) EPSS: 0.5 cm MV E Mason: 0.96 m/s MV DecT: 286 ms MV Dec Lucas: 3.4 m/s MV A Mason: 0.83 m/s MV E/A Ratio: 1.15 MV PHT: 83 ms MR Vmax: 2.81 m/s MR maxP.66 mmHg AV Vmax: 1.42 m/s AV maxP.07 mmHg TR Vmax: 3.17 m/s TR maxP.27 mmHg RAP: 20.00 mmHg RVSP: 60.27 mmHg MV EF SLOPE: 148.37 mm/s (70 - 150) MV EXCURSION: 17.01 mm (> 18.000) FINDINGS -------- This was a technically good study. The left ventricular size is normal. There is severe concentric left ventricular hypertrophy. Ove rall left ventricular systolic function is normal with, an EF between 55 - 60 %. The right ventricle is normal in size. The left atrial size is normal. The right atrial size is normal. Interatrial and interventricular septum intact. The aortic valve is trileaflet and appears structurally normal. The mitral valve is normal. Mild mitral regurgitation is present. The tricuspid valve appears structurally normal. Severe tricuspid regurgitation present. There is moderate pulmonary hypertension. The right ventricular systolic pressure, as measured by Doppler, is 60.27mmHg. There is no pulmonic regurgitation present. The aortic root size is normal. The inferior vena cava is dilated with no significant inspiratory collapse which is consistent estima rocky right atrial pressure of >20 mmHg. There is a trivial pericardial effusion present. CONCLUSIONS -------- 1. The left ventricular size is normal. 2. There is severe concentric left ventricular hypertrophy. 3. Overall left ventricular systolic function is normal with, an EF between 55 - 60 %. 4. Mild mitral regurgitation is present. 5. Severe tricuspid regurgitation present. 6. There is moderate pulmonary hypertension. 7. The right ventricular systolic pressure, as measured by Doppler, is 60.27mmHg. 8. The inferior vena cava is dilated with no significant inspiratory collapse which is consistent est imated right atrial pressure of >20 mmHg. 9. There is a trivial pericardial effusion present. MEAT PROCESSOR: Jessa Real RDCS
--- NOTE | 2021-03-24 12:10 | PN ---
PROGRESS NOTE Patient is seen for followup for end-stage renal disease. He is currently awake, comfortable, not in any acute distress. The patient was admitted to the hospital with increased weakness. He is being treated for pneumonia. He tolerated dialysis yesterday with about 1 L of ultrafiltration. PHYSICAL EXAMINATION: On examination today, blood pressure 161/73, heart rate 66 per minute, he is afebrile. Examination of the heart S1, S2. Examination of the lungs, bilateral breath sounds are heard. Abdomen is soft, nontender. Examination of lower extremities shows no evidence of edema. PHARMACY TECHNOLOGY INSTRUCTOR exam grossly intact. LAB: Show sodium 136, potassium 4.6, chloride of 97, serum creatinine 5.0. ASSESSMENT: 1. End-stage renal disease, on hemodialysis on a Sunday, Sunday, Sunday schedule. 2. Pneumonia, maintained on antibiotics. 3. Hypoglycemia on initial admission, currently improved. 4. Chronic kidney disease mineral bone disorder. 5. History of loculated right pleural effusion with previous pigtail catheter and Alteplase infusions. PLAN: Hemodialysis in a.m. Continue antibiotics. MMODL / IJN: [id number] /
[2021-03-24 12:23] LABS: Glucose,Whole Blood 184 mg/dL (75-99)
[2021-03-24] MEDS: AMOXIC-POT CLAV 875-125MG 1 EACH TAB PO SCH ×2 (15:50→20:03)
[2021-03-24 16:55] LABS: Glucose,Whole Blood 132 mg/dL (75-99)
--- NOTE | 2021-03-24 17:34 | P.PN ---
Progress Note - Text Progress Note Date: 03/24/21 Chief Complaint: Short of breath cough History of presenting complaint: This is a 41-year-old patient follows with Dr. Trevino. Extensive medical history. Chronic stable medical conditions include asthma, diabetes, , hypertension, hyperlipidemia, history of bilateral pleural effusions, cardiac tamponade window, end-stage kidney disease on hemodialysis Sunday and Sunday , fistula in the right forearm, minimal bone disease, chronic anemia, peptic ulcer disease, peripheral arterial disease bilateral poor vision. Patient presented to [facility] for shortness of breath for 2 days. It continues family doctor's office and oxygenation saturation was in the 80%. That improved with 2 L. [facility] was found an Accu-Chek of 43. Was given glucagon and amp of D50. Patient had taken his insulin but had not eaten. Patient given IV ceftriaxone and Zithromax and transferred here. He did have his scheduled hemodialysis yesterday. Patient is a nonsmoker. Breathing and also sputum. Decreased appetite. Admitted with pneumonia. He started on cefepime. March 23: Sitting up in bed. We'll give bit better. Appetite improving. Had about 50% of his lunch. Some cough. Some shortness of breath March 24: Sitting up in bed. Tired. Cough. Decrease sputum. Oral intake 50- 100%. Review of systems: Was done for constitutional, cardiovascular, GI, pulmonary. relevant finding as above Active Medications Acetaminophen (Acetaminophen Tab 325 Mg Tab) 650 mg PO Q6HR PRN PRN Reason: Mild Pain or Fever > 100.5 Last Admin: 03/24/21 02:35 Dose: 650 mg Documented by: Hydrocodone Bitart/Acetaminophen (Hydrocodone/Apap 5-325mg 1 Each Tab) 1 each PO BID PRN PRN Reason: Pain Last Admin: 03/24/21 09:01 Dose: 1 each Documented by: Al Hydroxide/Mg Hydroxide (Mag Hydrox/Al Hydrox/Simeth 30 Ml Cup) 15 ml PO Q6HR PRN PRN Reason: Indigestion Albuterol Sulfate (Albuterol Nebulized 2.5 Mg/3 Ml) 2.5 mg INHALATION RT-QID [facility] Last Admin: 03/24/21 15:34 Dose: Not Given Documented by: Alprazolam (Alprazolam 0.25 Mg Tab) 0.25 mg PO Q6HR PRN PRN Reason: Anxiety Amlodipine Besylate (Amlodipine 10 Mg Tab) 10 mg PO DAILY [facility] Last Admin: 03/24/21 09:01 Dose: 10 mg Documented by: Amoxicillin/Clavulanate Potassium (Amoxic-Pot Clav 875-125mg 1 Each Tab) 1 each PO Q12HR [facility] Last Admin: 03/24/21 15:50 Dose: Not Given Documented by: Aripiprazole (Aripiprazole 15 Mg Tab) 15 mg PO [facility] Last Admin: 03/23/21 19:29 Dose: 15 mg Documented by: Budesonide (Budesonide 1 Mg/2 Ml Nebu) 1 mg INHALATION RT-BID [facility] Last Admin: 03/24/21 07:41 Dose: 1 mg Documented by: Calcium Carbonate/Glycine (Calcium Carbonate 500 Mg Chewable) 1,000 mg PO Q4HR PRN PRN Reason: Dyspepsia Carvedilol (Carvedilol 12.5 Mg Tab) 12.5 mg PO BID [facility] Last Admin: 03/24/21 09:01 Dose: 12.5 mg Documented by: Dicyclomine HCl (Dicyclomine 20 Mg Tab) 20 mg PO QID PRN PRN Reason: GI Upset Last Admin: 03/24/21 09:01 Dose: 20 mg Documented by: Gabapentin (Gabapentin 100 Mg Cap) 100 mg PO [facility] Last Admin: 03/23/21 19:29 Dose: 100 mg Documented by: Hydralazine HCl (Hydralazine Hcl 50 Mg Tab) 100 mg PO TID [facility] Last Admin: 03/24/21 16:22 Dose: 100 mg Documented by: Insulin Aspart (Insulin Aspart (Novolog) 100 Unit/Ml Vial) 0 unit SQ [facility]; Protocol Last Admin: 03/24/21 15:50 Dose: Not Given Documented by: Insulin Detemir (Insulin Detemir (Levemir) 100 Unit/Ml Syr) 24 unit SQ DAILY@0700 [facility] Last Admin: 03/24/21 09:03 Dose: 24 unit Documented by: Lactulose (Lactulose 20 Gm/30 Ml Cup) 20 gm PO DAILY PRN PRN Reason: Constipation Loperamide HCl (Loperamide 2 Mg Cap) 2 mg PO QID PRN PRN Reason: Diarrhea Loratadine (Loratadine 10 Mg Tab) 10 mg PO DAILY PRN PRN Reason: Allergy Symptoms Magnesium Hydroxide (Magnesium Hydroxide 2,400 Mg/10 Ml Cup) 2,400 mg PO DAILY PRN PRN Reason: Constipation Melatonin (Melatonin 3 Mg Tablet) 3 mg PO HS PRN PRN Reason: Insomnia Metoclopramide HCl (Metoclopramide 5 Mg Tab) 5 mg PO DAILY PRN PRN Reason: Nausea Multivitamins (Multivitamins, Thera 1 Each Tab) 1 each PO DAILY [facility] Last Admin: 03/24/21 09:00 Dose: 1 each Documented by: Naloxone HCl (Naloxone 0.4 Mg/Ml 1 Ml Vial) 0.2 mg IV Q2M PRN PRN Reason: Opioid Reversal Ondansetron HCl (Ondansetron 4 Mg/2 Ml Vial) 4 mg IVP Q8HR PRN PRN Reason: Nausea And Vomiting Last Admin: 03/24/21 09:00 Dose: 4 mg Documented by: Pravastatin Sodium (Pravastatin Sodium 40 Mg Tab) 40 mg PO HS [facility] Last Admin: 03/23/21 19:29 Dose: 40 mg Documented by: Sertraline HCl (Sertraline 50 Mg Tab) 50 mg PO DAILY [facility] Last Admin: 03/24/21 09:01 Dose: 50 mg Documented by: Past medical history to include: Asthma, diabetes, GERD, peptic ulcer disease, hypertension, hyperlipidemia, bilateral pleural effusion with right-sided thoracentesis, decortication, cardiac tamponade window, diabetes since age of 21, on hemodialysis Sunday and Sunday of the fistula in the right lower arm. Minimal bone disease, chronic anemia, hiatal hernia, peptic ulcer disease, peripheral arterial disease, DJD, osteoarthritis of the left foot in 2012, have her take foot ulcers and amputations, right eye retinal detachment, left eye Blindness MRSA infections, ventriculoperitoneal shunt, depression Social history: Lives with his mother. No history of smoking. Alcohol rarely. Did chew tobacco in the past stopped 2016 Physical examination: VITAL SIGNS: Afebrile, 76, 16, 187/84, 94% on 2 L GENERAL: BMI 21.1, sitting up in bed, tired EYES: Pupils equal. Conjunctiva pale. HEENT: External appearance of nose and ears normal, oral cavity grossly normal. NECK: JVD not raised; masses not palpable. HEART: First and second heart sounds are normal; no edema. LUNGS: Respiratory rate increased; decreased breath sounds. ABDOMEN: Soft, nontender, liver spleen not palpable, no masses palpable. PSYCH: Alert and oriented x3; mood and affect tired EXTREMITIES: Right forearm arm AV fistula . Left foot second to fifth toe amputated NEUROLOGICAL: [Decreased vision, INVESTIGATIONS, reviewed in the clinical context: March 24: Potassium 4.6 creatinine 5 March 23: WBC 8.9 hemoglobin 10.4 platelets 122 sodium 132 potassium 4.8 BUN 56 creatinine 6.5 to procalcitonin 11.39 Chest x-ray film personally reviewed by me-infiltrates and pleural effusion Lab work from [facility] Assessment and plan: -Pneumonia, suspect gram-negative organism: Improving IV cefepime -Diabetes mellitus type 2, uncontrolled with hypoglycemia and hyperglycemia Follow Accu-Cheks closely -Intermittent asthma, with acute exacerbation bronchodilators, inhaled steroids -History of loculated right pleural effusion previous pigtail catheter placement and alteplase infusion -GERD Pepcid when necessary -Hyperlipidemia Pravachol -Essential hypertension with chronic kidney disease Hydralazine, Norvasc, -Chronic kidney disease minimal bone disease -Hiatal hernia -Peripheral arterial disease Pravachol, and baby aspirin -Bilateral poor vision from diabetic retinopathy -End-stage kidney disease on hemodialysis Sunday and Sunday Hemodialysis today. 1 L removed. On IV cefepime. Being changed over to Augmentin. Discussed with patient. Discharged hopefully tomorrow.
[2021-03-24] MEDS: PRAVASTATIN SODIUM 40 MG TAB PO SCH (20:02)
[2021-03-24] MEDS: ARIPiprazole 15 MG TAB PO SCH (20:02)
[2021-03-24] MEDS: GABAPENTIN 100 MG CAP PO SCH (20:03)
[2021-03-24 20:32] LABS: Glucose,Whole Blood 101 mg/dL (75-99)
[2021-03-25 04:42] LABS: Glucose,Whole Blood 210 mg/dL (75-99)
[2021-03-25] MEDS: ACETAMINOPHEN TAB 325 MG TAB PO PRN (05:15)
[2021-03-25 06:39] LABS: Glucose,Whole Blood 233 mg/dL (75-99)
[2021-03-25] MEDS: INSULIN DETEMIR (LEVEMIR) 100 UNIT/ML SYR SQ SCH (06:40)
[2021-03-25] MEDS: INSULIN ASPART (NovoLOG) 100 UNIT/ML VIAL SQ SCH ×2 (06:40→12:02)
[2021-03-25] MEDS: ALBUTEROL NEBULIZED 2.5 MG/3 ML INHALATION SCH ×3 (07:26→15:10)
[2021-03-25] MEDS: BUDESONIDE 1 MG/2 ML NEBU INHALATION SCH (07:29)
[2021-03-25] MEDS: MULTIVITAMINS, THERA 1 EACH TAB PO SCH (08:11)
[2021-03-25] MEDS: amLODIPine 10 MG TAB PO SCH (08:11)
[2021-03-25] MEDS: SERTRALINE 50 MG TAB PO SCH (08:11)
[2021-03-25] MEDS: HYDROcodone/APAP 5-325MG 1 EACH TAB PO PRN (08:11)
[2021-03-25] MEDS: hydrALAZINE HCL 50 MG TAB PO SCH (08:11)
[2021-03-25] MEDS: carvediloL 12.5 MG TAB PO SCH (08:11)
[2021-03-25] MEDS: AMOXIC-POT CLAV 875-125MG 1 EACH TAB PO SCH (08:11)
[2021-03-25] MEDS: DICYCLOMINE 20 MG TAB PO PRN (08:11)
--- NOTE | 2021-03-25 10:19 | PN ---
PROGRESS NOTE Patient is seen for followup for end-stage renal disease. This morning he is comfortable, awake, not in any acute distress. The patient tolerated his dialysis well the day before yesterday and he is scheduled for hemodialysis today. PHYSICAL EXAMINATION: On examination today, blood pressure 189/77, heart rate 77 per minute, he is afebrile. Examination of the heart S1, S2. Examination of the lungs, bilateral breath sounds are heard. Abdomen is soft, nontender. Examination of lower extremities shows no significant edema. BUTTON MAKER exam grossly intact. LAB: Labs are not available from today. ASSESSMENT: 1. End-stage renal disease, on hemodialysis on a Sunday, Sunday, Sunday schedule. 2. Hypertension. Expect improvement with dialysis. Blood pressure is currently uncontrolled. We can increase the Coreg to 25 mg b.i.d. if blood pressure remains elevated. 3. Chronic kidney disease, mineral bone disorder. 4. Generalized debility. 5. Type 2 diabetes with hypoglycemia on initial admission. Currently improved. PLAN: Hemodialysis today. Goal UF of about 2-2.5 L as tolerated. The patient can be discharged post dialysis today. MMODL / IJN: [id number] /
[2021-03-25 11:53] LABS: Glucose,Whole Blood 267 mg/dL (75-99)
[2021-03-25 15:31] LABS: Glucose,Whole Blood 121 mg/dL (75-99)
[2021-03-25 18:20] VITALS: BP 128/65; PULSE 64; RESP 18; TEMP 98.6
--- NOTE | 2021-03-25 22:47 | P.DS ---
Providers Date of admission: 03/22/21 16:13 Expected date of discharge: 03/25/21 Attending physician: Kristopher Stone Consults: 03/22/21 16:09 Consult Physician Urgent Consulting Provider: Jojo Charles Consult Reason/Comments: Hemodialysis Do you want consulting provider notified?: Yes 03/22/21 19:13 Consult Physician Routine Consulting Provider: Volodymyr Tarango Consult Reason/Comments: pneumonia Do you want consulting provider notified?: Yes Primary care physician: [facility] Course: Chief Complaint: Short of breath cough History of presenting complaint: This is a 41-year-old patient follows with Dr. Trevino. Extensive medical history. Chronic stable medical conditions include asthma, diabetes, , hypertension, hyperlipidemia, history of bilateral pleural effusions, cardiac tamponade window, end-stage kidney disease on hemodialysis Sunday and Sunday , fistula in the right forearm, minimal bone disease, chronic anemia, peptic ulcer disease, peripheral arterial disease bilateral poor vision. Patient presented to [facility] for shortness of breath for 2 days. It continues family doctor's office and oxygenation saturation was in the 80%. That improved with 2 L. Head [place] [facility] was found an Accu-Chek of 43. Was given glucagon and amp of D50. Patient had taken his insulin but had not eaten. Patient given IV ceftriaxone and Zithromax and transferred here. He did have his scheduled hemodialysis yesterday. Patient is a nonsmoker. Breathing and also sputum. Decreased appetite. Admitted with pneumonia. He started on cefepime. March 23: Sitting up in bed. We'll give bit better. Appetite improving. Had about 50% of his lunch. Some cough. Some shortness of breath March 24: Sitting up in bed. Tired. Cough. Decrease sputum. Oral intake 50- 100%. March 25: Breathing cough improved. Oral intake. Fair. Discussed with the patient. Hemodialysis today Consultation: Dr. Charles from nephrology Dr. Tarango from pulmonary Past medical history to include: Asthma, diabetes, GERD, peptic ulcer disease, hypertension, hyperlipidemia, bilateral pleural effusion with right-sided thoracentesis, decortication, cardiac tamponade window, diabetes since age of 21, on hemodialysis Sunday and Sunday of the fistula in the right lower arm. Minimal bone disease, chronic anemia, hiatal hernia, peptic ulcer disease, peripheral arterial disease, DJD, osteoarthritis of the left foot in 2012, have her take foot ulcers and amputations, right eye retinal detachment, left eye Blindness MRSA infections, ventriculoperitoneal shunt, depression Social history: Lives with his mother. No history of smoking. Alcohol rarely. Did chew tobacco in the past stopped 2016 Physical examination: VITAL SIGNS: 98.6, 64, 18, 1 28 x 65, 94% on room air GENERAL: BMI 21.1, sitting up in bed, tired EYES: Pupils equal. Conjunctiva pale. HEENT: External appearance of nose and ears normal, oral cavity grossly normal. NECK: JVD not raised; masses not palpable. HEART: First and second heart sounds are normal; no edema. LUNGS: Respiratory rate increased; decreased breath sounds. ABDOMEN: Soft, nontender, liver spleen not palpable, no masses palpable. PSYCH: Alert and oriented x3; mood and affect tired EXTREMITIES: Right forearm arm AV fistula . Left foot second to fifth toe amputated NEUROLOGICAL: [Decreased vision, INVESTIGATIONS, reviewed in the clinical context: March 24: Potassium 4.6 creatinine 5 March 23: WBC 8.9 hemoglobin 10.4 platelets 122 sodium 132 potassium 4.8 BUN 56 creatinine 6.5 to procalcitonin 11.39 Chest x-ray film personally reviewed by me-infiltrates and pleural effusion Lab work from [facility] Assessment and plan: -Pneumonia, suspect gram-negative organism: Improving IV cefepime. Complete course with Augmentin. -Diabetes mellitus type 2, uncontrolled with hypoglycemia and hyperglycemia Follow Accu-Cheks closely -Intermittent asthma, with acute exacerbation: Improved bronchodilators, inhaled steroids -History of loculated right pleural effusion previous pigtail catheter placement and alteplase infusion -GERD Pepcid when necessary -Hyperlipidemia Pravachol -Essential hypertension with chronic kidney disease Hydralazine, Norvasc, -Chronic kidney disease minimal bone disease -Hiatal hernia -Peripheral arterial disease Pravachol, and baby aspirin -Bilateral poor vision from diabetic retinopathy -End-stage kidney disease on hemodialysis Sunday and Sunday Hemodialysis Disposition: Home Patient Condition at Discharge: Fair Plan - Discharge Summary New Discharge Prescriptions: New Albuterol Inhaler [Ventolin Hfa Inhaler] 1 puff INHALATION RT-QID PRN #1 puff PRN Reason: Wheezing Amoxic-Pot Clav 875-125Mg [Augmentin 875-125] 1 each PO Q12HR #10 tab Albuterol Nebulized [Ventolin Nebulized] 2.5 mg INHALATION RT-QID #0 ml Continue Pravastatin Sodium [Pravachol] 40 mg PO HS amLODIPine [Norvasc] 10 mg PO DAILY Dicyclomine [Bentyl] 20 mg PO QID PRN PRN Reason: Gi Upset Glucagon Emergency Kit 1 mg IM ONCE PRN PRN Reason: HYPOGLYCEMIA EVENT Sertraline [Zoloft] 50 mg PO DAILY hydrALAZINE HCL [Apresoline] 100 mg PO TID HYDROcodone/APAP 5-325MG [[place] 5-325] 1 tab PO BID PRN PRN Reason: Pain ARIPiprazole [Abilify] 15 mg PO HS Loratadine [Alavert] 10 mg PO DAILY PRN PRN Reason: Allergy Symptoms Gabapentin [Neurontin] 100 mg PO HS cap Metoclopramide HCl [Reglan] 5 mg PO DAILY PRN PRN Reason: Nausea Insulin Degludec [Tresiba] 30 unit SQ DAILY Carvedilol [Coreg] 12.5 mg PO BID Multivitamins, Thera [Multivitamin (formulary)] 1 tab PO DAILY Loperamide HCl [Loperamide] 2 mg PO QID PRN PRN Reason: Diarrhea Discharge Medication List Pravastatin Sodium [Pravachol] 40 mg PO HS 12/26/15 [History] amLODIPine [Norvasc] 10 mg PO DAILY 11/14/18 [History] Dicyclomine [Bentyl] 20 mg PO QID PRN 02/28/19 [History] Glucagon Emergency Kit 1 mg IM ONCE PRN 02/28/19 [History] ARIPiprazole [Abilify] 15 mg PO HS 04/19/20 [History] HYDROcodone/APAP 5-325MG [[place] 5-325] 1 tab PO BID PRN 04/19/20 [History] Sertraline [Zoloft] 50 mg PO DAILY 04/19/20 [History] hydrALAZINE HCL [Apresoline] 100 mg PO TID 04/19/20 [History] Loratadine [Alavert] 10 mg PO DAILY PRN 05/10/20 [History] Gabapentin [Neurontin] 100 mg PO HS cap 09/01/20 [Rx] Metoclopramide HCl [Reglan] 5 mg PO DAILY PRN 10/04/20 [History] Insulin Degludec [Tresiba] 30 unit SQ DAILY 10/12/20 [History] Carvedilol [Coreg] 12.5 mg PO BID 03/22/21 [History] Loperamide HCl [Loperamide] 2 mg PO QID PRN 03/22/21 [History] Multivitamins, Thera [Multivitamin (formulary)] 1 tab PO DAILY 03/22/21 [History] Albuterol Inhaler [Ventolin Hfa Inhaler] 1 puff INHALATION RT-QID PRN #1 puff 03/25/21 [Rx] Albuterol Nebulized [Ventolin Nebulized] 2.5 mg INHALATION RT-QID #0 ml 03/25/21 [Rx] Amoxic-Pot Clav 875-125Mg [Augmentin 875-125] 1 each PO Q12HR #10 tab 03/25/21 [Rx] Follow up Appointment(s)/Referral(s): Chad Trevino MD [Primary Care Provider] - 1-2 days Discharge Disposition: HOME SELF-CARE
== END 2021-03-25 16:35 | disposition home or self-care (01) | DRG 177 ==
LOC: EC 15:40 → 3SCARD 16:13
PROVIDERS: ADMIT Hospitalist; ATTEND Hospitalist
DX: J15.6 Pneumonia due to other Gram-negative bacteria (principal); N18.6 End stage renal disease; J45.21 Mild intermittent asthma with (acute) exacerbation; I13.2 Hypertensive heart and chronic kidney disease with heart failure and with stage 5 chronic kidney disease, or end stage renal disease; I50.30 Unspecified diastolic (congestive) heart failure; J98.11 Atelectasis; I31.3 Pericardial effusion (noninflammatory); D63.1 Anemia in chronic kidney disease; E10.22 Type 1 diabetes mellitus with diabetic chronic kidney disease; E10.319 Type 1 diabetes mellitus with unspecified diabetic retinopathy without macular edema; E10.40 Type 1 diabetes mellitus with diabetic neuropathy, unspecified; E10.51 Type 1 diabetes mellitus with diabetic peripheral angiopathy without gangrene; E10.649 Type 1 diabetes mellitus with hypoglycemia without coma; E10.65 Type 1 diabetes mellitus with hyperglycemia; E10.621 Type 1 diabetes mellitus with foot ulcer; Z99.2 Dependence on renal dialysis; E10.36 Type 1 diabetes mellitus with diabetic cataract; F32.9 Major depressive disorder, single episode, unspecified; Z79.4 Long term (current) use of insulin; L97.529 Non-pressure chronic ulcer of other part of left foot with unspecified severity; E78.00 Pure hypercholesterolemia, unspecified; E78.5 Hyperlipidemia, unspecified; E87.70 Fluid overload, unspecified; H54.62 Unqualified visual loss, left eye, normal vision right eye; Z87.891 Personal history of nicotine dependence; K21.9 Gastro-esophageal reflux disease without esophagitis; K44.9 Diaphragmatic hernia without obstruction or gangrene; Z79.899 Other long term (current) drug therapy; Z82.3 Family history of stroke; Z82.49 Family history of ischemic heart disease and other diseases of the circulatory system; Z83.3 Family history of diabetes mellitus; Z87.01 Personal history of pneumonia (recurrent); Z98.2 Presence of cerebrospinal fluid drainage device; Z89.422 Acquired absence of other left toe(s); Z87.11 Personal history of peptic ulcer disease; Z86.14 Personal history of Methicillin resistant Staphylococcus aureus infection; Z98.890 Other specified postprocedural states
CPT/HCPCS: 71046; 80048; 82947; 83880; 84145; 85025; 90935; 93306; 94640; 94760; 99285

== ENCOUNTER 2021-05-18 21:55 | Inpatient (IN) | payer MEDICARE, OTHER ==
--- NOTE | 2021-05-18 22:27 | ED ---
Abdominal Pain HPI - General Chief Complaint: Abdominal Pain Stated Complaint: Pneumonia Time Seen by Provider: 05/18/21 21:57 Source: patient Mode of arrival: EMS - History of Present Illness Initial Comments: 's patient is a 41-year-old man with history of end-stage renal disease taking hemodialysis Sunday and Sunday. He arrives here as a transfer from [facility]. The patient had gone there this evening to be evaluated for some right-sided abdominal pain. He states that the pain is currently been going on about 22 hours. Is been sharp pain, constant. He has not noted worsening or relieving factors. He has not had any associated symptoms, no nausea or vomiting. No change in bowel movements. Patient states that they did a CAT scan at the other facility which did not reveal the cause of his pain. He relates that the CAT scan may have shown a pneumonia in the left lower lung and he was transferred here for possible pneumonia and possible empyema related to that. Patient had received antibiotics, Rocephin 1 g IV piggyback and also metronidazole 500 mg IV, administered at [facility]. The patient states that his last dialysis session had been this morning and was normal. MD Complaint: abdominal pain Onset/Timin -: hour(s) Location: RUQ, RLQ Radiation: none Migration to: no migration Severity: moderate Quality: sharp Consistency: constant Improves With: nothing Worsens With: nothing Associated Symptoms: anorexia - Related Data Home Medications Medication Instructions Recorded Confirmed Pravastatin Sodium [Pravachol] 40 mg PO HS 12/26/15 05/18/21 amLODIPine [Norvasc] 10 mg PO DAILY 11/14/18 05/18/21 Dicyclomine [Bentyl] 20 mg PO QID PRN 02/28/19 05/18/21 Glucagon Emergency Kit 1 mg IM ONCE PRN 02/28/19 05/18/21 ARIPiprazole [Abilify] 15 mg PO HS 04/19/20 05/18/21 HYDROcodone/APAP 5-325MG [[place] 1 tab PO BID PRN 04/19/20 05/18/21 5-325] Sertraline [Zoloft] 50 mg PO DAILY 04/19/20 05/18/21 hydrALAZINE HCL [Apresoline] 100 mg PO TID 04/19/20 05/18/21 Loratadine [Alavert] 10 mg PO DAILY PRN 05/10/20 05/18/21 Metoclopramide HCl [Reglan] 5 mg PO HS 10/04/20 05/18/21 Insulin Degludec [Tresiba] 20 unit SQ DAILY 10/12/20 05/18/21 Carvedilol [Coreg] 12.5 mg PO BID 03/22/21 05/18/21 Loperamide HCl [Loperamide] 2 mg PO QID PRN 03/22/21 05/18/21 Multivitamins, Thera [Multivitamin 1 tab PO DAILY 03/22/21 05/18/21 (formulary)] tiZANidine HCL 2 mg PO Q8H PRN 05/18/21 05/18/21 traZODone HCL 100 mg PO HS 05/18/21 05/18/21 Previous Rx's Medication Instructions Recorded Gabapentin [Neurontin] 100 mg PO HS cap 05/11/20 Albuterol Inhaler [Ventolin Hfa 1 puff INHALATION RT-QID PRN #1 03/25/21 Inhaler] puff Albuterol Nebulized [Ventolin 2.5 mg INHALATION RT-QID #0 ml 03/25/21 Nebulized] Allergies Allergy/AdvReac Type Severity Reaction Status Date / Time lisinopril Allergy Unknown Verified 05/18/21 22:15 atorvastatin calcium AdvReac Nausea & Verified 05/18/21 22:15 [From Lipitor] Vomiting/muscle weakness losartan potassium AdvReac Nausea & Verified 05/18/21 22:15 [From Cozaar] Vomiting/hypotension tramadol AdvReac drowsiness Verified 05/18/21 22:15 Review of Systems ROS Statement: Those systems with pertinent positive or pertinent negative responses have been documented in the HPI. ROS Other: All systems not noted in ROS Statement are negative. Constitutional: Denies: fever, chills Respiratory: Denies: cough, dyspnea Cardiovascular: Denies: chest pain, palpitations, edema Gastrointestinal: Reports: abdominal pain. Denies: nausea, vomiting, diarrhea, constipation, melena, hematochezia Genitourinary: Reports: other (Patient is anuric) Musculoskeletal: Denies: back pain Skin: Denies: rash Neurological: Denies: headache, weakness, numbness Past Medical History Past Medical History: Asthma, Diabetes Mellitus, Dialysis, Eye Disorder, GERD/Reflux, GI Bleed, Hyperlipidemia, Hypertension, Pneumonia, Renal Disease, Vascular Disorder Additional Past Medical History / Comment(s): Bilateral pleural effusions with R side worse-bilateral thoracentisis/ R pleural pigtail cath/R side alteplase pleural instillation/decortication/cryoablation, cardiac tamponade with window, IDDM type I, diabetic since he was age 21, DKA, ESRD with hemodialysis on M/W/F, fistula right lower arm, mineral bone disease, volume overload, chronic anemia, hiatal hernia, previous history of GI bleed secondary to peptic ulcer disease, peripheral vascular disease, low back pain/DDD, osteomyelitis L foot in 2012, diabetic foot ulcers and amputations, R eye retinal detachment/surgery-vision poor, L eye cataract/blindness, recent diarrhea History of Any Multi-Drug Resistant Organisms: MRSA Date of last positivie culture/infection: 12/20/11 MDRO Source:: Left Foot Past Surgical History: Ventriculoperitoneal Shunt Additional Past Surgical History / Comment(s): A/V fistula R lower arm, renal needle bx, 2008 left great toe amp and 2013 2nd to 5th left foot toes amputated, L foot I&D, right chest mediport x2 with removal in 2010 and 2012. right eye retina reattachment sx 03/2015. EGD/colonoscopy, pericardial window for cardiac tampanode, bilateral thoracentesis, R pleural pigtail insertion/alteplase pleural instillation/thoracotomy with decortication and cryoablation, EGD, colonoscopy. Past Anesthesia/Blood Transfusion Reactions: No Reported Reaction Additional Past Anesthesia/Blood Transfusion Reaction / Comment(s): Pt states he has received blood in past without reaction. Past Psychological History: Depression Smoking Status: Never smoker Past Alcohol Use History: None Reported Past Drug Use History: None Reported - Past Family History Mother Family Medical History: Hypertension Father Family Medical History: CVA/TIA, Diabetes Mellitus, Hypertension Additional Family Medical History / Comment(s): Father is at the age of 53yrs from a CVA. General Exam General appearance: alert, in no apparent distress Head exam: Present: atraumatic, normocephalic Eye exam: Present: normal appearance. Absent: scleral icterus, conjunctival injection Neck exam: Present: normal inspection Respiratory exam: Present: normal lung sounds bilaterally. Absent: respiratory distress, wheezes, rales, rhonchi, stridor Cardiovascular Exam: Present: regular rate, normal rhythm, systolic murmur. Absent: diastolic murmur, rubs, gallop GI/Abdominal exam: Present: soft, tenderness, normal bowel sounds. Absent: distended, guarding, rebound, rigid, mass, pulsatile mass, hernia Extremities exam: Present: normal inspection, normal capillary refill. Absent: pedal edema, calf tenderness Back exam: Present: normal inspection. Absent: CVA tenderness (R), CVA tenderness (L) Neurological exam: Present: alert Skin exam: Present: warm, dry, intact, normal color. Absent: rash Course Vital Signs 05/18/21 22:05 Temperature 98.2 F Pulse Rate 73 Respiratory 20 Rate Blood Pressure 194/95 O2 Sat by Pulse 95 Oximetry Disposition Referrals: Chad Trevino MD [Primary Care Provider] - 1-2 days
[2021-05-18] MEDS ORDERED: NALOXONE 0.4 MG/ML 1 ML VIAL IV PRN (22:54)
--- NOTE | 2021-05-19 00:05 | US ---
EXAMINATION TYPE: US abdomen limited DATE OF EXAM: 05/18/2021 COMPARISON: Outside CT today CLINICAL HISTORY: attention Right abdomen. EXAM MEASUREMENTS: Liver Length: 17.3 cm Gallbladder Wall: 0.3 cm CBD: 0.5 cm Right Kidney: 11.0 x 3.9 5.1 cm Pancreas: Tail obscured by overlying bowel gas, visualized portions wnl Liver: Measuring upper limits of normal Gallbladder: No stones visualized. Wall measuring upper limits of normal. Slightly hydropic Evidence for sonographic Penny's sign: Yes CBD: wnl Right Kidney: No hydronephrosis. Echogenic foci lower pole measuring 0.3 cm IMPRESSION: Borderline gallbladder wall thickening. No dilated ducts. No focal liver defect.
[2021-05-19 08:00] LABS: Anisocytosis Slight; Basophils # (A) 0.1 k/uL (0-0.2); Basophils % (A) 1 %; Eosinophils # (A) 0.3 k/uL (0-0.7); Eosinophils % (A) 5 %; HCT 37.9 % (39.0-53.0); HGB 12.5 gm/dL (13.0-17.5); Lymphocytes % (A) 15 %; MCH 31.4 pg (25.0-35.0); MCHC 32.9 g/dL (31.0-37.0); MCV 95.5 fL (80.0-100.0); Mean Platelet Volume 7.4; Monocytes # (A) 0.3 k/uL (0-1.0); Monocytes % (A) 5 %; Neutrophils # (A) 4.5 k/uL (1.3-7.7); Neutrophils % (A) 71 %; Platelet Count 229 k/uL (150-450); RBC 3.97 m/uL (4.30-5.90); RDW 16.1 % (11.5-15.5); WBC 6.3 k/uL (3.8-10.6)
--- NOTE | 2021-05-19 08:14 | XR ---
EXAMINATION TYPE: XR chest 1V portable DATE OF EXAM: 05/19/2021 Comparison: 03/23/2021 Clinical History: 41-year-old male left pleural effusion Findings: Heart borderline to mildly enlarged, unchanged. Moderate bilateral pleural effusions with a some patc hy bibasilar opacities are unchanged. Impression: 1. Similar borderline to mild cardiomegaly. 2. Continued small bilateral pleural effusions with adjacent atelectasis and/or consolidation.
[2021-05-19 08:20] LABS: ALT 9 U/L (4-49); AST 25 U/L (17-59); African American GFR (CKD) 16 (>60 ml/min/1.73 sqM); Albumin 3.6 g/dL (3.5-5.0); Albumin/Globulin Ratio 1.4; Alkaline Phosphatase 109 U/L (38-126); Anion Gap 11 mmol/L; Blood Urea Nitrogen 22 mg/dL (9-20); Calcium 8.9 mg/dL (8.4-10.2); Carbon Dioxide 30 mmol/L (22-30); Chloride 96 mmol/L (98-107); Globulin 2.5 g/dL; Glucose 53 mg/dL (74-99); Non-African American GFR(CKD) 13 (>60 ml/min/1.73 sqM); Potassium 4.3 mmol/L (3.5-5.1); Sodium 137 mmol/L (137-145); Total Bilirubin 0.4 mg/dL (0.2-1.3); Total Protein 6.1 g/dL (6.3-8.2)
[2021-05-19] MEDS: ALBUTEROL NEBULIZED 2.5 MG/3 ML INHALATION SCH ×4 (08:29→19:55)
[2021-05-19] MEDS: HYDROcodone/APAP 5-325MG 1 EACH TAB PO PRN (09:13)
[2021-05-19] MEDS: hydrALAZINE HCL 50 MG TAB PO SCH ×2 (09:15→17:13)
[2021-05-19] MEDS: amLODIPine 10 MG TAB PO SCH (09:16)
[2021-05-19] MEDS: carvediloL 12.5 MG TAB PO SCH ×2 (09:16→21:31)
[2021-05-19] MEDS: MULTIVITAMINS, THERA 1 EACH TAB PO SCH (09:16)
[2021-05-19] MEDS: INSULIN DETEMIR (LEVEMIR) 100 UNIT/ML SYR SQ SCH (09:52)
[2021-05-19] MEDS ORDERED: LOPERAMIDE 2 MG CAP PO PRN (10:25)
[2021-05-19 12:20] LABS: Glucose,Whole Blood 108 mg/dL (75-99)
[2021-05-19] MEDS ORDERED: PIPERACILLIN-TAZOBACTAM 3.375 GM in SODIUM CHLORIDE 0.9% 100 ML IVPB SCH (12:32)
--- NOTE | 2021-05-19 12:45 | P.GSCN ---
<Nelda Mcmillan - Last Filed: 05/19/21 12:43> History of Present Illness Consult date: 05/19/21 History of present illness: CHIEF COMPLAINT: Abdominal pain HISTORY OF PRESENT ILLNESS: This is a 41-year-old male with a known history of end-stage renal disease on hemodialysis Sunday, diabetes mellitus, pleural effusion with right thoracotomy, history of cardiac type benign with pericardial window, peptic ulcer disease and GI bleed and peripheral vascular disease. Patient presents to the hospital with complaints of right upper quadrant abdominal pain that started yesterday. He reports that the pain was sharp and sudden. Pain continued to worsen and therefore he initially went to [facility]. Per ER report he had a computed tomography scan done a couple [place] that show pneumonia in the left lower lung. Patient transferred to [facility] due to possible pneumonia and possible empyema related to that. Patient continues complaining of right upper quadrant abdominal pain. He denies any fever, chills or sweats. He did have hemodialysis yesterday. He reports that he has not missed any hemodialysis. Denies any change in bowel habits. He reports decrease in appetite. He does report losing weight recently. Patient did receive Rocephin and Flagyl at [facility]. PAST MEDICAL HISTORY: See list. PAST SURGICAL HISTORY: See list. MEDICATIONS: See list. ALLERGIES: See list. SOCIAL HISTORY: No illicit drug use. REVIEW OF SYSTEMS: CONSTITUTIONAL: Denies fever or chills. HEENT: Denies blurred vision, vision changes, or eye pain. Denies hemoptysis ENDOCRINE: Denies heat or cold intolerance. CARDIOVASCULAR: Denies chest pain or pressure. RESPIRATORY: No shortness of breath. GASTROINTESTINAL: Denies nausea or vomiting. NEURO: Denies history of seizures. PSYCH: No depression or suicidal ideation HEMATOLOGIC: Denies bleeding disorders. LYMPHATIC: The patient denies any lumps and bumps around the neck. GENITOURINARY: Denies any blood in urine or increased urinary frequency. MUSCULOSKELETAL: Denies myalgias. Denies joint swelling. Denies decreased range of motion beyond patients baseline. SKIN: Denies pruitis. Denies rash. PHYSICAL EXAM: VITAL SIGNS: Reviewed GENERAL: Well-developed in no acute distress. HEENT: No sclera icterus. Extraocular movements grossly intact. Moist buccal mucosa. Head is atraumatic, normocephalic. Hears conversational speech. No nasal drainage. NECK: Supple without lymphadenopathy. CHEST: Non-labored respirations and equal bilateral excursions. CARDIOVASCULAR: Palpable 2+ radial pulses. ABDOMEN: Soft. Nondistended. Right upper quadrant tenderness with palpation MUSCULOSKELETAL: No clubbing or cyanosis. NEUROLOGIC: No focal or lateralizing signs. Cranial nerves II through XII grossly intact. PSYCH: Appropriate affect. Alert and oriented to person, place and time. SKIN: Well perfused. Good skin turgor. LABORATORY DATA: WBC 6.3 hemoglobin 12.5 platelets 229 sodium 137 potassium 4.3 creatinine 4.89 glucose 108/0.6 LFTs normal IMAGING: Abdominal ultrasound shows a borderline gallbladder wall thickening. No dilated ducts. No focal liver defect Chest x-ray shows small bilateral pleural effusions with adjacent atelectasis and/or consolidation Echo from 03/23/2021 shows an EF of 55-60% mild mitral regurg, severe tricuspid regurgitation, moderate pulmonary hypertension and trivial pericardial effusion ASSESSMENT: 1. Right upper quadrant abdominal pain with ultrasound showing borderline gallbladder wall thickening 2. End-stage renal disease on hemodialysis 3. Small bilateral Pleural effusion on chest x-ray 4. Diabetes mellitus type 2 5. History of cardiac tamponade with pericardial window 6. History of peripheral vascular disease PLAN: -Further recommendations forthcoming per Surgeon -Patient will require laparoscopic cholecystectomy -Continue IV antibiotics -Preop EKG ordered -Consult cardiology for cardiac risk assessment Physician Senior Business Architect note has been reviewed by physician. Signing provider agrees with the documented findings, assessment, and plan of care. Past Medical History Past Medical History: Asthma, Diabetes Mellitus, Dialysis, Eye Disorder, GERD/Reflux, GI Bleed, Hyperlipidemia, Hypertension, Pneumonia, Renal Disease, Vascular Disorder Additional Past Medical History / Comment(s): Bilateral pleural effusions with R side worse-bilateral thoracentisis/ R pleural pigtail cath/R side alteplase pleural instillation/decortication/cryoablation, cardiac tamponade with window, IDDM type I, diabetic since he was age 21, DKA, ESRD with hemodialysis on M/W/F, fistula right lower arm, mineral bone disease, volume overload, chronic anemia, hiatal hernia, previous history of GI bleed secondary to peptic ulcer disease, peripheral vascular disease, low back pain/DDD, osteomyelitis L foot in 2012, diabetic foot ulcers and amputations, R eye retinal detachment/surgery-vision poor, L eye cataract/blindness, recent diarrhea History of Any Multi-Drug Resistant Organisms: MRSA Year Discovered:: 12/20/11 MDRO Source:: Left Foot Past Surgical History: Ventriculoperitoneal Shunt Additional Past Surgical History / Comment(s): A/V fistula R lower arm, renal needle bx, 2008 left great toe amp and 2013 2nd to 5th left foot toes amputated, L foot I&D, right chest mediport x2 with removal in 2010 and 2012. right eye retina reattachment sx 03/2015. EGD/colonoscopy, pericardial window for cardiac tampanode, bilateral thoracentesis, R pleural pigtail insertion/alteplase pleural instillation/thoracotomy with decortication and cryoablation, EGD, colonoscopy. Past Anesthesia/Blood Transfusion Reactions: No Reported Reaction Additional Past Anesthesia/Blood Transfusion Reaction / Comm: Pt states he has received blood in past without reaction. Past Psychological History: Depression Smoking Status: Never smoker Past Alcohol Use History: None Reported Past Drug Use History: None Reported - Past Family History Mother Family Medical History: Hypertension Father Family Medical History: CVA/TIA, Diabetes Mellitus, Hypertension Additional Family Medical History / Comment(s): Father is at the age of 53yrs from a CVA. Medications and Allergies Home Medications Medication Instructions Recorded Confirmed Type Pravastatin Sodium [Pravachol] 40 mg PO HS 12/26/15 05/18/21 History amLODIPine [Norvasc] 10 mg PO DAILY 11/14/18 05/18/21 History Dicyclomine [Bentyl] 20 mg PO QID PRN 02/28/19 05/18/21 History Glucagon Emergency Kit 1 mg IM ONCE PRN 02/28/19 05/18/21 History ARIPiprazole [Abilify] 15 mg PO HS 04/19/20 05/18/21 History HYDROcodone/APAP 5-325MG [[place] 1 tab PO BID PRN 04/19/20 05/18/21 History 5-325] Sertraline [Zoloft] 50 mg PO DAILY 04/19/20 05/18/21 History hydrALAZINE HCL [Apresoline] 100 mg PO TID 04/19/20 05/18/21 History Loratadine [Alavert] 10 mg PO DAILY PRN 05/10/20 05/18/21 History Gabapentin [Neurontin] 100 mg PO HS cap 05/11/20 05/18/21 Rx Metoclopramide HCl [Reglan] 5 mg PO HS 10/04/20 05/18/21 History Insulin Degludec [Tresiba] 20 unit SQ DAILY 10/12/20 05/18/21 History Carvedilol [Coreg] 12.5 mg PO BID 03/22/21 05/18/21 History Loperamide HCl [Loperamide] 2 mg PO QID PRN 03/22/21 05/18/21 History Multivitamins, Thera [Multivitamin 1 tab PO DAILY 03/22/21 05/18/21 History (formulary)] Albuterol Inhaler [Ventolin Hfa 1 puff INHALATION RT-QID PRN #1 03/25/21 05/18/21 Rx Inhaler] puff Albuterol Nebulized [Ventolin 2.5 mg INHALATION RT-QID #0 ml 03/25/21 05/18/21 Rx Nebulized] tiZANidine HCL 2 mg PO Q8H PRN 05/18/21 05/18/21 History traZODone HCL 100 mg PO HS 05/18/21 05/18/21 History Allergies Allergy/AdvReac Type Severity Reaction Status Date / Time lisinopril Allergy Unknown Verified 05/18/21 22:15 atorvastatin calcium AdvReac Nausea & Verified 05/18/21 22:15 [From Lipitor] Vomiting/muscle weakness losartan potassium AdvReac Nausea & Verified 05/18/21 22:15 [From Cozaar] Vomiting/hypotension tramadol AdvReac drowsiness Verified 05/18/21 22:15 Surgical - Exam Vital Signs Temp Pulse Resp BP Pulse Ox 98.2 F 73 20 194/95 95 05/18/21 22:05 05/18/21 22:05 05/18/21 22:05 05/18/21 22:05 05/18/21 22:05 Results - Labs 05/19/21 07:33 05/19/21 07:33 Abnormal Lab Results - Last 24 Hours (Table) 05/19/21 05/19/21 05/19/21 Range/Units 07:33 07:33 07:33 RBC 3.97 L (4.30-5.90) m/uL Hgb 12.5 L (13.0-17.5) gm/dL Hct 37.9 L (39.0-53.0) % RDW 16.1 H (11.5-15.5) % Chloride 96 L (98-107) mmol/L BUN 22 H (9-20) mg/dL Creatinine 4.89 H (0.66-1.25) mg/dL Glucose 53 L (74-99) mg/dL Plasma Lactic Acid Devendra 0.6 L (0.7-2.0) mmol/L Total Protein 6.1 L (6.3-8.2) g/dL Diabetes panel 05/19/21 Range/Units 07:33 Sodium 137 (137-145) mmol/L Potassium 4.3 (3.5-5.1) mmol/L Chloride 96 L (98-107) mmol/L Carbon Dioxide 30 (22-30) mmol/L BUN 22 H (9-20) mg/dL Creatinine 4.89 H (0.66-1.25) mg/dL Glucose 53 L (74-99) mg/dL Calcium 8.9 (8.4-10.2) mg/dL AST 25 (17-59) U/L ALT 9 (4-49) U/L Alkaline Phosphatase 109 (38-126) U/L Total Protein 6.1 L (6.3-8.2) g/dL Albumin 3.6 (3.5-5.0) g/dL Calcium panel 05/19/21 Range/Units 07:33 Calcium 8.9 (8.4-10.2) mg/dL Albumin 3.6 (3.5-5.0) g/dL Pituitary panel 05/19/21 Range/Units 07:33 Sodium 137 (137-145) mmol/L Potassium 4.3 (3.5-5.1) mmol/L Chloride 96 L (98-107) mmol/L Carbon Dioxide 30 (22-30) mmol/L BUN 22 H (9-20) mg/dL Creatinine 4.89 H (0.66-1.25) mg/dL Glucose 53 L (74-99) mg/dL Calcium 8.9 (8.4-10.2) mg/dL Adrenal panel 05/19/21 Range/Units 07:33 Sodium 137 (137-145) mmol/L Potassium 4.3 (3.5-5.1) mmol/L Chloride 96 L (98-107) mmol/L Carbon Dioxide 30 (22-30) mmol/L BUN 22 H (9-20) mg/dL Creatinine 4.89 H (0.66-1.25) mg/dL Glucose 53 L (74-99) mg/dL Calcium 8.9 (8.4-10.2) mg/dL Total Bilirubin 0.4 (0.2-1.3) mg/dL AST 25 (17-59) U/L ALT 9 (4-49) U/L Alkaline Phosphatase 109 (38-126) U/L Total Protein 6.1 L (6.3-8.2) g/dL Albumin 3.6 (3.5-5.0) g/dL <Khushi Funez - Last Filed: 05/19/21 14:34> History of Present Illness History of present illness: Patient seen and evaluated with above. Please see separate documentation below. CHIEF COMPLAINT: Right upper quadrant abdominal pain HISTORY OF PRESENT ILLNESS: The patient is a 41-year-old male with end-stage kidney disease with dialysis Sunday and Fridays including hypertensive cardiomyopathy who presents with right upper quadrant abdominal pain for more than 1-2 days. He reports family history of gallbladder disease where his mother had her gallbladder removed. Additionally his last meal was pears. He reports his pain is moderate to severe in intensity. He presents as a transfer from an outside institution due to his abdominal pain. Gen. surgery is consulted. PAST MEDICAL HISTORY: See list and reviewed PAST SURGICAL HISTORY: See list and reviewed MEDICATIONS: See list and reviewed ALLERGIES: See list and reviewed SOCIAL HISTORY: See list and reviewed FAMILY HISTORY: See list and reviewed REVIEW OF ORGAN SYSTEMS: CONSTITUTIONAL: No fevers or chills. Has unintentional weight loss more than 10 pounds in 6 months. EYES: Has left eye blindness. Wears glasses. HEENT: No difficulties with hearing. No nosebleeds. RESPIRATORY: Presentation from outside hospital suspected pneumonia. History of bilateral pleural effusions. Has chronic obstructive pulmonary disease with asthma. CARDIOVASCULAR: Has hypertensive heart disease. Last echo March 2021 with ej ection fraction of 55%. Past history of cardiac tamponade with window. GASTROINTESTINAL: Has fatty food intolerance. Denies change in bowel habits and gas bloat. Past history of GI bleed. Has gastroesophageal reflux disease. GENITOURINARY: Has end-stage renal disease dialysis dependent Fridays. NEUROLOGICAL: Has numbness or tingling along the distal extremities. No seizure disorders or headaches. History of PRIMARY CLINICIAN shunt. MUSCULOSKELETAL: Has back pain, stiffness or joint arthritis. Has osteomyelitis left foot. SKIN: No current skin cancer. No rash. History of MRSA infection. PSYCHIATRIC: Has depression. No suicidal ideation. ENDOCRINE: Denies current thyroid disorders. Insulin-dependent type 2 HEME/LYMPHATIC: Has chronic anemia. ALLERGY/IMMUNOLOGY: No immunoglobulin therapy. No immune deficiencies. BREAST: Denies current breast lumps, pain or nipple discharge. PHYSICAL EXAM: VITALS: Reviewed CONSTITUTIONAL: Well developed and in no acute distress. EYES: Conjuctivae without sclera icterus. Extraocular movements grossly intact. HEAD, EARS, NOSE, THROAT: Moist buccal mucosa. Head is atraumatic, normocephalic. Hears conversational speech. No nasal drainage. NECK: Supple. No JV distention. No thyroidomegaly. RESPIRATORY: Non-labored respirations and equal bilateral excursions. No gross wheezes. CARDIOVASCULAR: Regular rate and rhythm. Extremities without moderate edema. Palpable 2+ radial pulses. ABDOMEN: Tender right upper quadrant. No gross peritonitis. LYMPH: No gross neck lymphadenopathy. MUSCULOSKELETAL: Nail and fingers with good capillary refill. SKIN: Warm and well perfused with good skin turgor. NEUROLOGIC: Cranial nerves II through XII grossly intact. Sensation upper and extremities intact. No focal or lateralizing signs. PSYCH: Appropriate affect. Alert and oriented to person, place and time. Displays appropriate insight. CLINCAL LABS: Reviewed. WBC normal 6.3. LFTs within normal limits. IMAGING: Ultrasound of the gallbladder independently reviewed with hydropic gallbladder. No large gallstones identified. BUN 22 and creatinine 4.[address] of the abdomen and pelvis from outside facility independently reviewed demonstrated hydropic gallbladder. Studies noncontrast. No free air small bow el obstruction identified. This is my independent interpretation. RADIOLOGY: Report reviewed. Ultrasound confirms hydropic gallbladder. RECORDS: EGD and colonoscopy from October 2020 for intractable nausea vomiting or weight loss reviewed demonstrated gastritis including 1 cm sigmoid colon anne yp. ASSESSMENT: 1. Right upper quadrant abdominal pain with cholecystitis 2. End-stage renal disease due to diabetes type 1 insulin-dependent 3. Hypertensive heart disease with pulmonary hypertension PLAN: 1. He is symptomatic with clinical cholecystitis including hydrops of the gallbladder. Recommend robotic cholecystectomy. 2. Recent echo from October 2020 and reviewed demonstrated normal ejection fraction. Patient has elevated cardiac risk and cardiac risk assessment advised . 3. Patient's elevated risk for complications due to end-stage renal disease including cardiac disease Thank you for this kind consultation. Surgical - Exam Vital Signs Temp Pulse Resp BP Pulse Ox 98.2 F 73 20 194/95 95 05/18/21 22:05 05/18/21 22:05 05/18/21 22:05 05/18/21 22:05 05/18/21 22:05 Results - Labs 05/19/21 07:33 05/19/21 07:33 Abnormal Lab Results - Last 24 Hours (Table) 05/19/21 05/19/21 05/19/21 Range/Units 07:33 07:33 07:33 RBC 3.97 L (4.30-5.90) m/uL Hgb 12.5 L (13.0-17.5) gm/dL Hct 37.9 L (39.0-53.0) % RDW 16.1 H (11.5-15.5) % Chloride 96 L (98-107) mmol/L BUN 22 H (9-20) mg/dL Creatinine 4.89 H (0.66-1.25) mg/dL Glucose 53 L (74-99) mg/dL POC Glucose (mg/dL) (75-99) mg/dL Plasma Lactic Acid Devendra 0.6 L (0.7-2.0) mmol/L Total Protein 6.1 L (6.3-8.2) g/dL 05/19/21 Range/Units 12:18 RBC (4.30-5.90) m/uL Hgb (13.0-17.5) gm/dL Hct (39.0-53.0) % RDW (11.5-15.5) % Chloride (98-107) mmol/L BUN (9-20) mg/dL Creatinine (0.66-1.25) mg/dL Glucose (74-99) mg/dL POC Glucose (mg/dL) 108 H (75-99) mg/dL Plasma Lactic Acid Devendra (0.7-2.0) mmol/L Total Protein (6.3-8.2) g/dL Diabetes panel 05/19/21 Range/Units 07:33 Sodium 137 (137-145) mmol/L Potassium 4.3 (3.5-5.1) mmol/L Chloride 96 L (98-107) mmol/L Carbon Dioxide 30 (22-30) mmol/L BUN 22 H (9-20) mg/dL Creatinine 4.89 H (0.66-1.25) mg/dL Glucose 53 L (74-99) mg/dL Calcium 8.9 (8.4-10.2) mg/dL AST 25 (17-59) U/L ALT 9 (4-49) U/L Alkaline Phosphatase 109 (38-126) U/L Total Protein 6.1 L (6.3-8.2) g/dL Albumin 3.6 (3.5-5.0) g/dL Calcium panel 05/19/21 Range/Units 07:33 Calcium 8.9 (8.4-10.2) mg/dL Albumin 3.6 (3.5-5.0) g/dL Pituitary panel 05/19/21 Range/Units 07:33 Sodium 137 (137-145) mmol/L Potassium 4.3 (3.5-5.1) mmol/L Chloride 96 L (98-107) mmol/L Carbon Dioxide 30 (22-30) mmol/L BUN 22 H (9-20) mg/dL Creatinine 4.89 H (0.66-1.25) mg/dL Glucose 53 L (74-99) mg/dL Calcium 8.9 (8.4-10.2) mg/dL Adrenal panel 05/19/21 Range/Units 07:33 Sodium 137 (137-145) mmol/L Potassium 4.3 (3.5-5.1) mmol/L Chloride 96 L (98-107) mmol/L Carbon Dioxide 30 (22-30) mmol/L BUN 22 H (9-20) mg/dL Creatinine 4.89 H (0.66-1.25) mg/dL Glucose 53 L (74-99) mg/dL Calcium 8.9 (8.4-10.2) mg/dL Total Bilirubin 0.4 (0.2-1.3) mg/dL AST 25 (17-59) U/L ALT 9 (4-49) U/L Alkaline Phosphatase 109 (38-126) U/L Total Protein 6.1 L (6.3-8.2) g/dL Albumin 3.6 (3.5-5.0) g/dL Assessment and Plan (1) Acute hydrops of gallbladder Current Visit: Yes Status: Acute Code(s): K82.1 - HYDROPS OF GALLBLADDER SNOMED Code(s): 65662116 (2) Cholecystitis Current Visit: Yes Status: Acute Code(s): K81.9 - CHOLECYSTITIS, UNSPECIFIED SNOMED Code(s): 20269120 (3) Hypertensive heart disease Current Visit: Yes Status: Acute Code(s): I11.9 - HYPERTENSIVE HEART DISEASE WITHOUT HEART FAILURE SNOMED Code(s): 77241094 (4) Diabetes type 1, uncontrolled Current Visit: Yes Status: Acute Code(s): E10.65 - TYPE 1 DIABETES MELLITUS WITH HYPERGLYCEMIA SNOMED Code(s): 95063584 (5) ESRD (end stage renal disease) on dialysis Current Visit: No Status: Acute Code(s): N18.6 - END STAGE RENAL DISEASE; Z99.2 - DEPENDENCE ON RENAL DIALYSIS SNOMED Code(s): 163461305 (6) Poorly controlled diabetes mellitus Current Visit: No Status: Acute Code(s): E11.65 - TYPE 2 DIABETES MELLITUS WITH HYPERGLYCEMIA SNOMED Code(s): 911744891
[2021-05-19] MEDS: INSULIN ASPART (NovoLOG) 100 UNIT/ML VIAL SQ SCH ×4 (12:55→21:39)
[2021-05-19] MEDS ORDERED: LORazepam 0.5 MG TAB PO PRN (12:56)
[2021-05-19] MEDS ORDERED: ACETAMINOPHEN TAB 325 MG TAB PO PRN (12:56)
[2021-05-19] MEDS ORDERED: ONDANSETRON 4 MG/2 ML VIAL IVP PRN (12:56)
[2021-05-19] MEDS ORDERED: CALCIUM CARBONATE 500 MG CHEWABLE PO PRN (12:56)
[2021-05-19] MEDS: SERTRALINE 50 MG TAB PO SCH (12:59)
[2021-05-19] MEDS ORDERED: hydrALAZINE HCL 20 MG/ML 1 ML VIAL IVP PRN (13:32)
--- NOTE | 2021-05-19 13:38 | P.CRDCN ---
History of Present Illness Consult date: 05/19/21 History of present illness: HISTORY OF PRESENT ILLNESS: This is a 41-year-old male with a past medical history significant for chronic kidney disease on hemodialysis, hypertension, hyperlipidemia, peripheral vascular disease, chronic loculated pleural effusion with thoracotomy in 2018, and history of cardiac tamponade with pericardial window approximately 3 years ago in [place]. Patient does not follow with a medical receptionist. We have been asked to see the patient in consultation for cardiac clearance. Patient examined at the bedside in the emergency room. Patient presented to the hospital with abdominal pain. He has been evaluated by general surgery and is possibly going to have a cholecystectomy. Patient denies any chest pain or pressure. He denies any shortness of breath. Patient states he is able to lay flat in bed without any dyspnea. Patient states he is able to walk around his house without any shortness of breath or chest pain. Chest xray borderline to mild cardiomegaly. Continued small bilateral pleural effusions with adjacent atelectasis and/or consolidation. Laboratory data: WBC 6.3. Hemoglobin 12.5. Platelet count 229. Sodium 137. Potassium 4.3. BUN 22. Creatinine 4.89. Lactic acid 0.6. Bilirubin 0.4. AST 25. ALT 9. Current home cardiac medications include carvedilol 12.5 mg twice a day, pravastatin 40 mg daily, hydralazine 100 mg 3 times a day, and amlodipine 10 mg daily Most recent echocardiogram obtained in March 2021 revealed ejection fraction 55- 60%, mild mitral regurgitation, severe tricuspid regurgitation, and moderate pulmonary hypertension REVIEW OF SYSTEMS: At the time of my exam: CONSTITUTIONAL: Denies fever or chills. HEENT: Denies blurred vision, vision changes, or eye pain. Denies hemoptysis CARDIOVASCULAR: Denies chest pain. Denies orthopnea. Denies PND. Denies palpitations RESPIRATORY: Denies shortness of breath. GASTROINTESTINAL: Denies abdominal pain. Denies nausea or vomiting. HEMATOLOGIC: Denies bleeding disorders. GENITOURINARY: Denies any blood in urine. SKIN: Denies pruitis. Denies rash. PHYSICAL EXAM: VITAL SIGNS: Reviewed. GENERAL: Well-developed in no acute distress. HEENT: Head is normocephalic. Pupils are equal, round. Sclerae anicteric. Mucous membranes of the mouth are moist. Neck supple. No JVD or thyromegaly LUNGS: Respirations even and unlabored. Lungs diminished to auscultation bilate rally. HEART: Regular rate and rhythm. S1 and S2 heard. ABDOMEN: Soft. Nondistended. Nontender. EXTREMITIES: Normal range of motion. No clubbing or cyanosis. Peripheral pulses intact. No lower extremity edema NEUROLOGIC: Awake and alert. Oriented x 3. ASSESSMENT: Abdominal pain, US revealing borderline gallbladder wall thickening End-stage renal disease on hemodialysis Hypertension Hyperlipidemia Peripheral vascular disease History of chronic loculated pleural effusion with thoracotomy in 2018 History of cardiac tamponade with pericardial window, presently surgical in [place] PLAN: No need to repeat echocardiogram as this was performed in March 2021 Obtained baseline EKG Resume home cardiac medications. Monitor blood pressure Patient has no complaints of angina and is not in acute heart failure Patient is at an increased risk for surgical intervention but there are no absolute contraindications from a cardiac standpoint Nurse practitioner note has been reviewed by physician. Signing provider agrees with the documented findings, assessment, and plan of care. Past Medical History Past Medical History: Asthma, Diabetes Mellitus, Dialysis, Eye Disorder, GERD/Reflux, GI Bleed, Hyperlipidemia, Hypertension, Pneumonia, Renal Disease, Vascular Disorder Additional Past Medical History / Comment(s): Bilateral pleural effusions with R side worse-bilateral thoracentisis/ R pleural pigtail cath/R side alteplase pleural instillation/decortication/cryoablation, cardiac tamponade with window, IDDM type I, diabetic since he was age 21, DKA, ESRD with hemodialysis on M/W/, fistula right lower arm, mineral bone disease, volume overload, chronic anemia, hiatal hernia, previous history of GI bleed secondary to peptic ulcer disease, peripheral vascular disease, low back pain/DDD, osteomyelitis L foot in 2012, diabetic foot ulcers and amputations, R eye retinal detachment/surgery-vision poor, L eye cataract/blindness, recent diarrhea History of Any Multi-Drug Resistant Organisms: MRSA Date of last positivie culture/infection: 12/20/11 MDRO Source:: Left Foot Past Surgical History: Ventriculoperitoneal Shunt Additional Past Surgical History / Comment(s): A/V fistula R lower arm, renal needle bx, 2008 left great toe amp and 2013 2nd to 5th left foot toes amputated, L foot I&D, right chest mediport x2 with removal in 2010 and 2012. right eye retina reattachment sx 03/2015. EGD/colonoscopy, pericardial window for cardiac tampanode, bilateral thoracentesis, R pleural pigtail insertion/alteplase pleural instillation/thoracotomy with decortication and cryoablation, EGD, colonoscopy. Past Anesthesia/Blood Transfusion Reactions: No Reported Reaction Additional Past Anesthesia/Blood Transfusion Reaction / Comment(s): Pt states he has received blood in past without reaction. Past Psychological History: Depression Smoking Status: Never smoker Past Alcohol Use History: None Reported Past Drug Use History: None Reported - Past Family History Mother Family Medical History: Hypertension Father Family Medical History: CVA/TIA, Diabetes Mellitus, Hypertension Additional Family Medical History / Comment(s): Father is at the age of 53yrs from a CVA. Medications and Allergies Home Medications Medication Instructions Recorded Confirmed Type Pravastatin Sodium [Pravachol] 40 mg PO HS 12/26/15 05/18/21 History amLODIPine [Norvasc] 10 mg PO DAILY 11/14/18 05/18/21 History Dicyclomine [Bentyl] 20 mg PO QID PRN 02/28/19 05/18/21 History Glucagon Emergency Kit 1 mg IM ONCE PRN 02/28/19 05/18/21 History ARIPiprazole [Abilify] 15 mg PO HS 04/19/20 05/18/21 History HYDROcodone/APAP 5-325MG [Semora 1 tab PO BID PRN 04/19/20 05/18/21 History 5-325] Sertraline [Zoloft] 50 mg PO DAILY 04/19/20 05/18/21 History hydrALAZINE HCL [Apresoline] 100 mg PO TID 04/19/20 05/18/21 History Loratadine [Alavert] 10 mg PO DAILY PRN 05/10/20 05/18/21 History Gabapentin [Neurontin] 100 mg PO HS cap 05/11/20 05/18/21 Rx Metoclopramide HCl [Reglan] 5 mg PO HS 10/04/20 05/18/21 History Insulin Degludec [Tresiba] 20 unit SQ DAILY 10/12/20 05/18/21 History Carvedilol [Coreg] 12.5 mg PO BID 03/22/21 05/18/21 History Loperamide HCl [Loperamide] 2 mg PO QID PRN 03/22/21 05/18/21 History Multivitamins, Thera [Multivitamin 1 tab PO DAILY 03/22/21 05/18/21 History (formulary)] Albuterol Inhaler [Ventolin Hfa 1 puff INHALATION RT-QID PRN #1 03/25/21 05/18/21 Rx Inhaler] puff Albuterol Nebulized [Ventolin 2.5 mg INHALATION RT-QID #0 ml 03/25/21 05/18/21 Rx Nebulized] tiZANidine HCL 2 mg PO Q8H PRN 05/18/21 05/18/21 History traZODone HCL 100 mg PO HS 05/18/21 05/18/21 History Allergies Allergy/AdvReac Type Severity Reaction Status Date / Time lisinopril Allergy Unknown Verified 05/18/21 22:15 atorvastatin calcium AdvReac Nausea & Verified 05/18/21 22:15 [From Lipitor] Vomiting/muscle weakness losartan potassium AdvReac Nausea & Verified 05/18/21 22:15 [From Cozaar] Vomiting/hypotension tramadol AdvReac drowsiness Verified 05/18/21 22:15 Physical Exam Vitals: Vital Signs Temp Pulse Pulse Resp BP BP Pulse Ox 05/19/21 13:00 98.9 F 76 18 192/78 97 05/19/21 09:00 87 16 168/87 98 05/19/21 08:39 72 05/19/21 08:30 72 05/19/21 06:21 76 20 178/98 96 05/18/21 23:34 73 20 95 05/18/21 22:05 98.2 F 73 20 194/95 95 Intake and Output 05/18/21 05/19/21 05/19/21 22:59 06:59 14:59 Other: Weight 69.4 kg Results 05/19/21 07:33 05/19/21 07:33 Cardiac Enzymes 05/19/21 Range/Units 07:33 AST 25 (17-59) U/L CBC 05/19/21 Range/Units 07:33 WBC 6.3 (3.8-10.6) k/uL RBC 3.97 L (4.30-5.90) m/uL Hgb 12.5 L (13.0-17.5) gm/dL Hct 37.9 L (39.0-53.0) % Plt Count 229 (150-450) k/uL Comprehensive Metabolic Panel 05/19/21 Range/Units 07:33 Sodium 137 (137-145) mmol/L Potassium 4.3 (3.5-5.1) mmol/L Chloride 96 L (98-107) mmol/L Carbon Dioxide 30 (22-30) mmol/L BUN 22 H (9-20) mg/dL Creatinine 4.89 H (0.66-1.25) mg/dL Glucose 53 L (74-99) mg/dL Calcium 8.9 (8.4-10.2) mg/dL AST 25 (17-59) U/L ALT 9 (4-49) U/L Alkaline Phosphatase 109 (38-126) U/L Total Protein 6.1 L (6.3-8.2) g/dL Albumin 3.6 (3.5-5.0) g/dL Current Medications Generic Name Dose Route Start Last Admin Trade Name Freq PRN Reason Stop Dose Admin Acetaminophen 650 mg 05/19/21 12:56 Acetaminophen Tab 325 Mg Tab PO Q6HR PRN Mild Pain or Fever > 100.5 Hydrocodone Bitart/Acetaminophen 1 each 05/18/21 22:59 05/19/21 09:13 Hydrocodone/Apap 5-325mg 1 Each Tab PO 1 each BID PRN Administration Pain Albuterol Sulfate 2.5 mg 05/19/21 08:00 05/19/21 11:30 Albuterol Nebulized 2.5 Mg/3 Ml INHALATION Not Given RT-QID [facility] Amlodipine Besylate 10 mg 05/19/21 09:00 05/19/21 09:16 Amlodipine 10 Mg Tab PO 10 mg DAILY [facility] Administration Aripiprazole 15 mg 05/19/21 21:00 Aripiprazole 15 Mg Tab PO HS [facility] Calcium Carbonate/Glycine 1,000 mg 05/19/21 12:56 Calcium Carbonate 500 Mg Chewable PO Q4HR PRN Dyspepsia Carvedilol 12.5 mg 05/19/21 09:00 05/19/21 09:16 Carvedilol 12.5 Mg Tab PO 12.5 mg BID K[facility] Administration Dicyclomine HCl 20 mg 09/08/21 22:59 Dicyclomine 20 Mg Tab PO QID PRN GI Upset Gabapentin 100 mg 05/19/21 21:00 Gabapentin 100 Mg Cap PO HS [facility] Hydralazine HCl 100 mg 05/19/21 09:00 05/19/21 09:15 Hydralazine Hcl 50 Mg Tab PO 100 mg TID [facility] Administration Hydromorphone HCl 0.5 mg 05/19/21 13:08 Hydromorphone 0.5 Mg/0.5 Ml Syringe IM Q3HR PRN Pain Piperacillin Sod/Tazobactam 100 mls @ 25 mls/hr 05/19/21 13:00 Sod 3.375 gm/ Sodium Chloride IVPB Q12HR [facility] Insulin Aspart 0 unit 05/19/21 12:30 05/19/21 12:55 Insulin Aspart (Novolog) 100 Unit/Ml Vial SQ Not Given [facility] Protocol Insulin Aspart 0 unit 05/19/21 17:30 Insulin Aspart (Novolog) 100 Unit/Ml Vial SQ [facility] Protocol Insulin Detemir 20 unit 05/19/21 09:00 05/19/21 09:52 Insulin Detemir (Levemir) 100 Unit/Ml Syr SQ 20 unit DAILY [facility] Administration Loperamide HCl 2 mg 05/19/21 10:25 Loperamide 2 Mg Cap PO QID PRN Diarrhea Lorazepam 0.5 mg 05/19/21 12:56 Lorazepam 0.5 Mg Tab PO Q6HR PRN Anxiety Melatonin 3 mg 05/19/21 12:56 Melatonin 3 Mg Tablet PO HS PRN Insomnia Metoclopramide HCl 5 mg 05/19/21 21:00 Metoclopramide 5 Mg Tab PO HS [facility] Multivitamins 1 each 05/19/21 09:00 05/19/21 09:16 Multivitamins, Thera 1 Each Tab PO 1 each DAILY [facility] Administration Naloxone HCl 0.2 mg 05/18/21 22:54 Naloxone 0.4 Mg/Ml 1 Ml Vial IV Q2M PRN Opioid Reversal Ondansetron HCl 4 mg 05/19/21 12:56 Ondansetron 4 Mg/2 Ml Vial IVP Q8HR PRN Nausea And Vomiting Pravastatin Sodium 40 mg 05/19/21 21:00 Pravastatin Sodium 40 Mg Tab PO HS [facility] Sertraline HCl 50 mg 05/19/21 10:30 05/19/21 12:59 Sertraline 50 Mg Tab PO 50 mg DAILY [facility] Administration Trazodone HCl 100 mg 05/19/21 21:00 Trazodone Hcl 100 Mg Tab PO HS [facility] Intake and Output 05/18/21 05/19/21 05/19/21 22:59 06:59 14:59 Other: Weight 69.4 kg 05/19/21 07:33 05/19/21 07:33
[2021-05-19] MEDS: PIPERACILLIN-TAZOBACTAM 3.375 GM in SODIUM CHLORIDE 0.9% 100 ML IVPB SCH ×2 (14:09→21:29)
[2021-05-19] MEDS: HYDROmorphone 0.5 MG/0.5 ML SYRINGE IM PRN ×3 (14:23→21:25)
--- NOTE | 2021-05-19 14:29 | CONS ---
CONSULTATION REASON FOR CONSULT: End-stage renal disease. HISTORY OF PRESENT ILLNESS: The patient is a 41-year-old male with end-stage renal disease, on hemodialysis on a Sunday, Sunday, Sunday schedule at [facility]. The patient was admitted to the hospital with complaints of abdominal pain which started about 2 days ago and it has been progressively getting worse. The patient denies any nausea or vomiting. No fever or chills. It is mostly in the right upper quadrant. The patient had an ultrasound done which showed gallbladder thickening. Surgery has been consulted. He did have his dialysis yesterday and tolerated it fairly well. PAST MEDICAL HISTORY: End-stage renal disease, history of asthma, type 2 diabetes, diabetic retinopathy, gastroesophageal reflux disease, history of GI bleed. History of empyema with decortication. History of pericardial effusion and tamponade with pericardial window. The patient actually has type 1 diabetes with diabetic retinopathy noted with history of cataracts. 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 SOCIAL HISTORY: Negative for smoking, drug abuse or alcohol abuse. MEDICATIONS: Medications prior to admission included: Pravachol, Norvasc, Bentyl, Abilify, Roach, Zoloft, hydralazine, Antivert, insulin, Coreg, multivitamins, trazodone, and Neurontin and inhalers. ALLERGIES: LISINOPRIL, LIPITOR, COZAAR, TRAMADOL. REVIEW OF SYSTEMS: As per HPI. Other systems negative. EXAMINATION: Comfortable, awake, alert, oriented x3, not in any acute distress. Blood pressure 168/87, heart rate 87 per minute. He is afebrile. Examination of the heart S1, S2. Examination of the lungs, bilateral breath sounds are heard. Abdomen is soft, right upper quadrant tenderness noted. HOG STICKER exam grossly intact. LAB: Show sodium of 137, potassium 4.3, chloride 96, BUN 22, hemoglobin 12.5 g/dL. White cell count is 6.3. ASSESSMENT: 1. End-stage renal disease, on hemodialysis on a Sunday, Sunday, Sunday schedule. We will arrange for hemodialysis in a.m. 2. Abdominal pain with gallbladder wall thickening noted on the ultrasound. Surgery has been consulted. The white count is not elevated. The patient does not have fever at this point. 3. Chronic kidney disease mineral bone disorder. 4. 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 PLAN: Hemodialysis in a.m. Resume phosphate binders. Follow up on surgical consult. Thank you for this consultation. We will continue to follow the patient with you during his hospitalization. MMODL / MISAELN: [id number] /
--- NOTE | 2021-05-19 16:18 | P.CNPUL ---
History of Present Illness Consult date: 05/19/21 Reason for consult: pleural effusion History of present illness: 41-year-old male patient who was brought in from [facility] for right up per quadrant pain and further evaluation and treatment. I was asked to evaluate this patient because of a pleural effusion that was noted on his chest x-ray. This patient has multiple medical bones and comorbidities. He has an incisional disease and he has been on dialysis for many years and his last dialysis session was yesterday. He has other comorbidities including previous history of compl icated parapneumonic effusion requiring chest tube drainage and surgical decortication that was performed back in 2019 in our hospital. Since then, the patient has developed some residual and chronic bilateral pleural effusions. For now, the patient came into the hospital because of a right-sided upper quadrant abdominal pain that was sharp and stabbing that started around midnight . No nausea. No vomiting. No fever. No chills. No diarrhea. No abdominal cramping. No abdominal distention. No radiation of the pain to the back. The patient had initial blood work which included a COVID 19 by PCR back negative. The patient was sent home with a 7.23 with a hemoglobin of 12.3. Platelet count was 224. Sodium level was normal. Potassium level was normal at 4.5. Glucose was at 142. BUN was 16 with a creatinine of 3.5. LFTs are normal with a SGOT of 25, SGPT of 10, alkaline phosphatase 119. Bilirubin was 0.4. Total protein was 7.4. The lactic acid level was at 1.1. LEVEL WAS 0.27. CAT SCAN OF THE ABDOMEN AND PELVIS SHOWED SOME CHRONIC LOWER LOBE PLEURAL EFFUSIONS THAT WERE SMALL IN SIZE SOMEWHAT LOCULATED AND ON LEFT. AT THE SAME TIME, THERE WAS NO ACUTE INTRA-ABDOMINAL ABNORMALITIES. THERE WAS SMALL AMOUNT OF PELVIC FREE FLUID. APPENDIX WAS NOT VISUALIZED. LIVER PANCREAS AND SPLEEN AND GALLBLADDER IS IN THE EVENT WERE ESSENTIALLY WITHIN NORMAL LIMITS. I saw this patient in the emergency department. He did not have any respiratory difficulties whatsoever. Denies having any cough or sputum production. No aspiration. No recurrent pneumonias.The repeat Blood work showed a white cell count of 6.3 with a hemoglobin of 12.5. And the patient had a sodium level of 137, lactic acid was down to 0.6, LFTs remain normal. Ultrasound of the abdomen showed no stones within the gallbladder. There was measurement of the gallbladder was upper limits of normal. There was slight hydropic. There was sonographic Penny's sign that was positive, but that was within normal limits. Right kidney was also within normal limits. Liver length was 17 cm in size. Right kidney was essentially within normal limits. No focal liver lesions. Neurosurgery consultation was obtained and the patient was started on IV Zosyn. Note that the patient has a echocardiogram from March 2021 and his ejection fraction was 55-60%. There was mild mitral regurgitation, severe TR, moderate pulmonary hypertension. Review of Systems CONSTITUTIONAL: Denies fever or chills. HEENT: Denies blurred vision, vision changes, or eye pain. Denies hemoptysis CARDIOVASCULAR: Denies chest pain. Denies orthopnea. Denies PND. Denies palpita tions RESPIRATORY: Denies shortness of breath. GASTROINTESTINAL: Denies abdominal pain. Denies nausea or vomiting. HEMATOLOGIC: Denies bleeding disorders. GENITOURINARY: Denies any blood in urine. SKIN: Denies pruitis. Denies rash. Past Medical History Past Medical History: Asthma, Diabetes Mellitus, Dialysis, Eye Disorder, GERD/Reflux, GI Bleed, Hyperlipidemia, Hypertension, Pneumonia, Renal Disease, Vascular Disorder Additional Past Medical History / Comment(s): Bilateral pleural effusions with R side worse-bilateral thoracentisis/ R pleural pigtail cath/R side alteplase pleural instillation/decortication/cryoablation, cardiac tamponade with window, IDDM type I, diabetic since he was age 21, DKA, ESRD with hemodialysis on M/W/F, fistula right lower arm, mineral bone disease, volume overload, chronic anemia, hiatal hernia, previous history of GI bleed secondary to peptic ulcer disease, peripheral vascular disease, low back pain/DDD, osteomyelitis L foot in 2012, diabetic foot ulcers and amputations, R eye retinal detachment/surgery-vision poor, L eye cataract/blindness, recent diarrhea History of Any Multi-Drug Resistant Organisms: MRSA Date of last positivie culture/infection: 12/20/11 MDRO Source:: Left Foot Past Surgical History: Ventriculoperitoneal Shunt Additional Past Surgical History / Comment(s): A/V fistula R lower arm, renal needle bx, 2008 left great toe amp and 2013 2nd to 5th left foot toes amputated, L foot I&D, right chest mediport x2 with removal in 2010 and 2012. right eye retina reattachment sx 03/2015. EGD/colonoscopy, pericardial window for cardiac tampanode, bilateral thoracentesis, R pleural pigtail insertion/alteplase pleural instillation/thoracotomy with decortication and cryoablation, EGD, colonoscopy. Past Anesthesia/Blood Transfusion Reactions: No Reported Reaction Additional Past Anesthesia/Blood Transfusion Reaction / Comment(s): Pt states he has received blood in past without reaction. Smoking Status: Never smoker - Past Family History Mother Family Medical History: Hypertension Father Family Medical History: CVA/TIA, Diabetes Mellitus, Hypertension Additional Family Medical History / Comment(s): Father is at the age of 53yrs from a CVA. Medications and Allergies Home Medications Medication Instructions Recorded Confirmed Type Pravastatin Sodium [Pravachol] 40 mg PO HS 12/26/15 05/18/21 History amLODIPine [Norvasc] 10 mg PO DAILY 11/14/18 05/18/21 History Dicyclomine [Bentyl] 20 mg PO QID PRN 02/28/19 05/18/21 History Glucagon Emergency Kit 1 mg IM ONCE PRN 02/28/19 05/18/21 History ARIPiprazole [Abilify] 15 mg PO HS 04/19/20 05/18/21 History HYDROcodone/APAP 5-325MG [Slater 1 tab PO BID PRN 04/19/20 05/18/21 History 5-325] Sertraline [Zoloft] 50 mg PO DAILY 04/19/20 05/18/21 History hydrALAZINE HCL [Apresoline] 100 mg PO TID 04/19/20 05/18/21 History Loratadine [Alavert] 10 mg PO DAILY PRN 05/10/20 05/18/21 History Gabapentin [Neurontin] 100 mg PO HS cap 05/11/20 05/18/21 Rx Metoclopramide HCl [Reglan] 5 mg PO HS 10/04/20 05/18/21 History Insulin Degludec [Tresiba] 20 unit SQ DAILY 10/12/20 05/18/21 History Carvedilol [Coreg] 12.5 mg PO BID 03/22/21 05/18/21 History Loperamide HCl [Loperamide] 2 mg PO QID PRN 03/22/21 05/18/21 History Multivitamins, Thera [Multivitamin 1 tab PO DAILY 03/22/21 05/18/21 History (formulary)] Albuterol Inhaler [Ventolin Hfa 1 puff INHALATION RT-QID PRN #1 03/25/21 05/18/21 Rx Inhaler] puff Albuterol Nebulized [Ventolin 2.5 mg INHALATION RT-QID #0 ml 03/25/21 05/18/21 Rx Nebulized] tiZANidine HCL 2 mg PO Q8H PRN 05/18/21 05/18/21 History traZODone HCL 100 mg PO HS 05/18/21 05/18/21 History Allergies Allergy/AdvReac Type Severity Reaction Status Date / Time lisinopril Allergy Unknown Verified 05/18/21 22:15 atorvastatin calcium AdvReac Nausea & Verified 05/18/21 22:15 [From Lipitor] Vomiting/muscle weakness losartan potassium AdvReac Nausea & Verified 05/18/21 22:15 [From Cozaar] Vomiting/hypotension tramadol AdvReac drowsiness Verified 05/18/21 22:15 Physical Exam Vitals: Vital Signs Temp Pulse Pulse Resp BP BP Pulse Ox 05/19/21 13:27 76 05/19/21 13:00 98.9 F 76 18 192/78 97 05/19/21 12:56 97 05/19/21 09:00 87 16 168/87 98 05/19/21 08:39 72 05/19/21 08:30 72 05/19/21 06:21 76 20 178/98 96 05/18/21 23:34 73 20 95 05/18/21 22:05 98.2 F 73 20 194/95 95 Intake and Output 05/19/21 05/19/21 05/19/21 06:59 14:59 22:59 Other: Weight 69.4 kg Results - Laboratory Findings CBC and BMP: 05/19/21 07:33 05/19/21 07:33 Abnormal lab findings: Abnormal Labs 05/19/21 05/19/21 05/19/21 07:33 07:33 07:33 RBC 3.97 L Hgb 12.5 L Hct 37.9 L RDW 16.1 H Chloride 96 L BUN 22 H Creatinine 4.89 H Glucose 53 L POC Glucose (mg/dL) Plasma Lactic Acid Devendra 0.6 L Total Protein 6.1 L 05/19/21 12:18 RBC Hgb Hct RDW Chloride BUN Creatinine Glucose POC Glucose (mg/dL) 108 H Plasma Lactic Acid Devendra Total Protein Assessment and Plan Plan: 1 right upper quadrant pain, currently under investigation. No abnormalities in LFTs. No abnormalities in the ultrasound of the gallbladder. No abnormalities on the CAT scan of the abdomen. Rule out gallbladder dysfunction. May benefit from a HIDA scan. For now the patient on IV Zosyn. No signs of any septicemia. No leukocytosis. No lactic acidosis. 2 chronic small bilateral pleural effusion, without evidence or any indication for a pleural space infection or pneumonia 3 previous history of a complicated parapneumonic effusion on the right requiring chest tube insertion with subsequent surgical decortication. The patient had a right pleural pigtail catheter insertion and subsequent alteplase instillation, decortication, cryoablation. 4 history of cardiac tamponade with pericardial window 5 diabetes mellitus type 1 and the patient is a diabetic since age of 21 6 incisional disease on hemodialysis, MWF with a fistula in the right upper extremity 7 minimal bone disease 8 chronic anemia 9 previous history of GI bleeding related to peptic ulcer disease 5 peripheral vascular disease 11 chronic lower back pain and degenerative arthritis 12 history of a similar disease of the left foot with amputation secondary to diabetic foot ulcers 13 right eye retinal detachment with poor visibility in vision 14 history of left eye cataract 15 peripheral vascular disease 16 hypertension 17 Hyperlipidemia Plan Agree on IV Zosyn Consider HIDA scan No evidence of any pneumonia or pleural space infection. The pleural effusions are chronic in this patient. No need for thoracentesis. In fact the patient does not have any respiratory complaints. Patient is pulse oxing normally on room air oxygen. General surgical consultation regarding right upper quadrant pain Nephrology for hemodialysis as indicated Resume all medications We'll see only on a as needed basis
--- NOTE | 2021-05-19 16:21 | P.HPIM ---
History of Present Illness H&P Date: 05/19/21 Chief Complaint: Abdominal pain History of presenting complaint: This is a 41-year-old patient follows with Dr. Trevino. Extensive medical history. Chronic stable medical conditions include asthma, diabetes, , hypertension, hyperlipidemia, history of bilateral pleural effusions, cardiac tamponade window, end-stage kidney disease on hemodialysis Sunday and Sunday , fistula in the right forearm, minimal bone disease, chronic anemia, peptic ulcer disease, peripheral arterial disease bilateral poor vision. Also has a fistula in the left arm it is maturing Patient presented to [facility] yesterday abdominal pain starting of the previous day. More so central. No nausea vomiting. No change in bowel movement pattern. Denies any fever and chills. Patient don't have any cough shortness of breath nausea vomiting. A computed tomography scan of the chest abdomen pelvis done that was unremarkable did show some infiltrate in the left side. Has patient was sent down here. Patient still having abdominal pain. Review of systems: GEN.: Tired EYES: Poor vision HEENT: None NECK: None RESPIRATORY: None CARDIOVASCULAR: None GASTROINTESTINAL: As above GENITOURINARY: None MUSCULOSKELETAL: None LYMPHATICS: None HEMATOLOGICAL: None PSYCHIATRY: Anxious NEUROLOGICAL: Peripheral neuropathy, decreased vision Past medical history to include: Asthma, diabetes, GERD, peptic ulcer disease, hypertension, hyperlipidemia, bilateral pleural effusion with right-sided thoracentesis, decortication, cardiac tamponade window, diabetes type I since age of 21, on hemodialysis Sunday and Sunday of the fistula in the right lower arm. Minimal bone disease, chronic anemia, hiatal hernia, peptic ulcer disease, peripheral arterial disease, DJD, osteoarthritis of the left foot in 2012, have her take foot ulcers and amputations, right eye retinal detachment, left eye Blindness MRSA infections, ventriculoperitoneal shunt, depression Social history: Lives with his mother. No history of smoking. Alcohol rarely. Did chew tobacco in the past stopped 2016 Physical examination: VITAL SIGNS: 98.2, 73, 20, 128/65, 95% room air, upon presentation GENERAL: BMI 19.6, sitting up in bed, awake EYES: Pupils equal. Conjunctiva pale. HEENT: External appearance of nose and ears normal, oral cavity grossly normal. NECK: JVD not raised; masses not palpable. HEART: First and second heart sounds are normal; no edema. LUNGS: Respiratory rate increased; fair breath sounds. ABDOMEN: Soft, right-sided tenderness, no guarding rigidity, liver spleen not palpable, no masses palpable. PSYCH: Alert and oriented x3; mood and affect tired EXTREMITIES: Right forearm arm AV fistula . Left upper extremity fistula. Left foot second to fifth toe amputated NEUROLOGICAL: Decreased vision, otherwise cranial nerves grossly intact, pulmonary and sensation grossly intact LYMPHATICS: No lymph nodes palpable in the axilla and neck INVESTIGATIONS, reviewed in the clinical context: White count 6.3 hemoglobin 12.5 platelets 229 potassium 4.3 BUN 22 creatinine 4. 89 bilirubin 0.4 AST 25 ALT 9 EKG tracing personally reviewed by me-normal sinus rhythm Chest x-ray film personally reviewed by me-questionable atelectasis Abdominal ultrasound: Gallbladder: No stones visualized. Wall of the limit of normal. Slightly hydropic. Assessment and plan: -Probable acute cholecystitis. Gen. surgery consulted. IV Zosyn. -No clinical evidence of pneumonia. Patient has no respiratory symptoms. No fever no chills. -Diabetes mellitus type 1, since age of 21, chronically on insulin Levemir 20 units subcu daily. Follow Accu-Cheks -Intermittent asthma, bronchodilators, -History of loculated right pleural effusion previous pigtail catheter placement and alteplase infusion -GERD Tums when necessary -Hyperlipidemia Pravachol 40 mg daily at bedtime -Essential hypertension with chronic kidney disease Hydralazine 100 mg 3 times a day, Norvasc 10 mg daily, -Chronic kidney disease minimal bone disease -Hiatal hernia -Peripheral arterial disease Pravachol, and baby aspirin -Bilateral poor vision from diabetic retinopathy -Depression Zoloft 50 mg daily, Desyrel 100 mg daily at bedtime -Chronic insomnia for multiple medical problems Melatonin 3 mg daily at bedtime when necessary, trazodone 100 mg daily at bedtime -End-stage kidney disease on hemodialysis Sunday and Sunday Hemodialysis. Consult nephrology. Patient's right arm AV fistula is being used. Patient has a maturing left upper extremity fistula Home medications to resume. IV Zosyn. Follow Accu-Cheks. Consultation to Gen. surgery nephrology. Care was discussed with the patient. Past Medical History Past Medical History: Asthma, Diabetes Mellitus, Dialysis, Eye Disorder, GERD/Reflux, GI Bleed, Hyperlipidemia, Hypertension, Pneumonia, Renal Disease, Vascular Disorder Additional Past Medical History / Comment(s): Bilateral pleural effusions with R side worse-bilateral thoracentisis/ R pleural pigtail cath/R side alteplase pleural instillation/decortication/cryoablation, cardiac tamponade with window, IDDM type I, diabetic since he was age 21, DKA, ESRD with hemodialysis on M/W/F, fistula right lower arm, mineral bone disease, volume overload, chronic anemia, hiatal hernia, previous history of GI bleed secondary to peptic ulcer disease, peripheral vascular disease, low back pain/DDD, osteomyelitis L foot in 2012, diabetic foot ulcers and amputations, R eye retinal detachment/surgery-vision poor, L eye cataract/blindness, recent diarrhea History of Any Multi-Drug Resistant Organisms: MRSA Date of last positivie culture/infection: 12/20/11 MDRO Source:: Left Foot Past Surgical History: Ventriculoperitoneal Shunt Additional Past Surgical History / Comment(s): A/V fistula R lower arm, renal needle bx, 2008 left great toe amp and 2013 2nd to 5th left foot toes amputated, L foot I&D, right chest mediport x2 with removal in 2010 and 2012. right eye retina reattachment sx 03/2015. EGD/colonoscopy, pericardial window for cardiac tampanode, bilateral thoracentesis, R pleural pigtail insertion/alteplase pleural instillation/thoracotomy with decortication and cryoablation, EGD, colonoscopy. Past Anesthesia/Blood Transfusion Reactions: No Reported Reaction Additional Past Anesthesia/Blood Transfusion Reaction / Comment(s): Pt states he has received blood in past without reaction. Past Psychological History: Depression Smoking Status: Never smoker Past Alcohol Use History: None Reported Past Drug Use History: None Reported - Past Family History Mother Family Medical History: Hypertension Father Family Medical History: CVA/TIA, Diabetes Mellitus, Hypertension Additional Family Medical History / Comment(s): Father is at the age of 53yrs from a CVA. Medications and Allergies Home Medications Medication Instructions Recorded Confirmed Type Pravastatin Sodium [Pravachol] 40 mg PO HS 12/26/15 05/18/21 History amLODIPine [Norvasc] 10 mg PO DAILY 11/14/18 05/18/21 History Dicyclomine [Bentyl] 20 mg PO QID PRN 02/28/19 05/18/21 History Glucagon Emergency Kit 1 mg IM ONCE PRN 02/28/19 05/18/21 History ARIPiprazole [Abilify] 15 mg PO HS 04/19/20 05/18/21 History HYDROcodone/APAP 5-325MG [[place] 1 tab PO BID PRN 04/19/20 05/18/21 History 5-325] Sertraline [Zoloft] 50 mg PO DAILY 04/19/20 05/18/21 History hydrALAZINE HCL [Apresoline] 100 mg PO TID 04/19/20 05/18/21 History Loratadine [Alavert] 10 mg PO DAILY PRN 05/10/20 05/18/21 History Gabapentin [Neurontin] 100 mg PO HS cap 05/11/20 05/18/21 Rx Metoclopramide HCl [Reglan] 5 mg PO HS 10/04/20 05/18/21 History Insulin Degludec [Tresiba] 20 unit SQ DAILY 10/12/20 05/18/21 History Carvedilol [Coreg] 12.5 mg PO BID 03/22/21 05/18/21 History Loperamide HCl [Loperamide] 2 mg PO QID PRN 03/22/21 05/18/21 History Multivitamins, Thera [Multivitamin 1 tab PO DAILY 03/22/21 05/18/21 History (formulary)] Albuterol Inhaler [Ventolin Hfa 1 puff INHALATION RT-QID PRN #1 03/25/21 05/18/21 Rx Inhaler] puff Albuterol Nebulized [Ventolin 2.5 mg INHALATION RT-QID #0 ml 03/25/21 05/18/21 Rx Nebulized] tiZANidine HCL 2 mg PO Q8H PRN 05/18/21 05/18/21 History traZODone HCL 100 mg PO HS 05/18/21 05/18/21 History Allergies Allergy/AdvReac Type Severity Reaction Status Date / Time lisinopril Allergy Unknown Verified 05/18/21 22:15 atorvastatin calcium AdvReac Nausea & Verified 05/18/21 22:15 [From Lipitor] Vomiting/muscle weakness losartan potassium AdvReac Nausea & Verified 05/18/21 22:15 [From Cozaar] Vomiting/hypotension tramadol AdvReac drowsiness Verified 05/18/21 22:15 Physical Exam Vitals: Vital Signs Temp Pulse Resp BP Pulse Ox 05/19/21 08:39 72 05/19/21 08:30 72 05/19/21 06:21 76 20 178/98 96 05/18/21 23:34 73 20 95 05/18/21 22:05 98.2 F 73 20 194/95 95 Intake and Output 05/18/21 05/19/21 05/19/21 22:59 06:59 14:59 Other: Weight 69.4 kg Results CBC & Chem 7: 05/19/21 07:33 05/19/21 07:33 Labs: Abnormal Lab Results - Last 24 Hours (Table) 05/19/21 05/19/21 05/19/21 Range/Units 07:33 07:33 07:33 RBC 3.97 L (4.30-5.90) m/uL Hgb 12.5 L (13.0-17.5) gm/dL Hct 37.9 L (39.0-53.0) % RDW 16.1 H (11.5-15.5) % Chloride 96 L (98-107) mmol/L BUN 22 H (9-20) mg/dL Creatinine 4.89 H (0.66-1.25) mg/dL Glucose 53 L (74-99) mg/dL Plasma Lactic Acid Devendra 0.6 L (0.7-2.0) mmol/L Total Protein 6.1 L (6.3-8.2) g/dL
[2021-05-19 17:15] LABS: Glucose,Whole Blood 51 mg/dL (75-99)
[2021-05-19 17:29] LABS: Glucose,Whole Blood 65 mg/dL (75-99)
[2021-05-19 17:53] LABS: Glucose,Whole Blood 90 mg/dL (75-99)
[2021-05-19 19:26] LABS: Amylase 40 U/L (30-110); Lipase 29 U/L (23-300)
[2021-05-19] MEDS: GABAPENTIN 100 MG CAP PO SCH (21:31)
[2021-05-19] MEDS: METOCLOPRAMIDE 5 MG TAB PO SCH (21:31)
[2021-05-19] MEDS: traZODone HCL 100 MG TAB PO SCH (21:31)
[2021-05-19] MEDS: PRAVASTATIN SODIUM 40 MG TAB PO SCH (21:31)
[2021-05-19 21:35] LABS: Glucose,Whole Blood 155 mg/dL (75-99)
[2021-05-19] MEDS: DICYCLOMINE 20 MG TAB PO PRN (21:40)
[2021-05-20] MEDS: INSULIN ASPART (NovoLOG) 100 UNIT/ML VIAL SQ SCH ×6 (00:05→21:51)
[2021-05-20] MEDS: ARIPiprazole 15 MG TAB PO SCH ×2 (00:31→21:51)
[2021-05-20] MEDS: hydrALAZINE HCL 50 MG TAB PO SCH ×4 (00:31→21:50)
[2021-05-20] MEDS: HYDROmorphone 0.5 MG/0.5 ML SYRINGE IVP PRN ×6 (00:57→21:49)
[2021-05-20 05:57] LABS: Glucose,Whole Blood 131 mg/dL (75-99)
[2021-05-20] MEDS ORDERED: INDOCYANINE GREEN 25 MG VIAL IV PRN (06:46)
[2021-05-20] MEDS ORDERED: HEPARIN SODIUM,PORCINE/PF 5,000 UNIT/0.5 ML SYRINGE SQ PRN (06:46)
--- NOTE | 2021-05-20 06:59 | P.PN ---
Subjective Progress Note Date: 05/20/21 Principal diagnosis: This is a 41-year-old patient with ESRD, diabetes mellitus, on dialysis Sunday admitted with abdominal pain and gallbladder wall thickening po ssible possible surgery is being contemplated. This morning he says his pain is much relieved. Although he is tender on his abdomen. No nausea vomiting no diarrhea. No fever chills no cough no shortness of breath. He is on room air Objective - Vital Signs Vital signs: Vital Signs Temp 99.4 F 05/20/21 02:37 Pulse 62 05/20/21 02:37 Resp 16 05/20/21 02:37 BP 152/64 05/20/21 02:37 Pulse Ox 93 L 05/20/21 02:37 Intake & Output 05/19/21 05/19/21 05/20/21 06:59 18:59 06:59 Intake Total 640 100 Output Total 0 Balance 640 100 Weight 69.4 kg 69.4 kg Intake: Intake, IV Titration 100 Amount Piperacillin-Tazobactam 3 100 .375 gm In Sodium Chloride 0.9% 100 ml @ 25 mls/hr IVPB Q12HR [facility] Rx #:[id number] Oral 640 0 Output: Urine 0 Other: # Voids 0 On examination is awake alert oriented HEENT exam no JVP neck is supple no facial asymmetry Lungs are clear to auscultation good air entry bilaterally Heart sounds unremarkable for any murmur rub gallop Abdomen soft nontender except in the right upper quadrant Penny's sign is positive Extremity exam was no edema Neurologically awake alert oriented He has poor muscle mass - Labs CBC & Chem 7: 05/19/21 07:33 05/19/21 07:33 Labs: Abnormal Lab Results - Last 24 Hours (Table) 05/19/21 05/19/21 05/19/21 Range/Units 07:33 07:33 07:33 RBC 3.97 L (4.30-5.90) m/uL Hgb 12.5 L (13.0-17.5) gm/dL Hct 37.9 L (39.0-53.0) % RDW 16.1 H (11.5-15.5) % Chloride 96 L (98-107) mmol/L BUN 22 H (9-20) mg/dL Creatinine 4.89 H (0.66-1.25) mg/dL Glucose 53 L (74-99) mg/dL POC Glucose (mg/dL) (75-99) mg/dL Plasma Lactic Acid Devendra 0.6 L (0.7-2.0) mmol/L Total Protein 6.1 L (6.3-8.2) g/dL Procalcitonin (0.02-0.09) ng/mL 05/19/21 05/19/21 05/19/21 Range/Units 07:33 12:18 17:04 RBC (4.30-5.90) m/uL Hgb (13.0-17.5) gm/dL Hct (39.0-53.0) % RDW (11.5-15.5) % Chloride (98-107) mmol/L BUN (9-20) mg/dL Creatinine (0.66-1.25) mg/dL Glucose (74-99) mg/dL POC Glucose (mg/dL) 108 H 51 L (75-99) mg/dL Plasma Lactic Acid Devendra (0.7-2.0) mmol/L Total Protein (6.3-8.2) g/dL Procalcitonin 0.23 H (0.02-0.09) ng/mL 05/19/21 05/19/21 05/20/21 Range/Units 17:26 21:34 05:55 RBC (4.30-5.90) m/uL Hgb (13.0-17.5) gm/dL Hct (39.0-53.0) % RDW (11.5-15.5) % Chloride (98-107) mmol/L BUN (9-20) mg/dL Creatinine (0.66-1.25) mg/dL Glucose (74-99) mg/dL POC Glucose (mg/dL) 65 L 155 H 131 H (75-99) mg/dL Plasma Lactic Acid Devendra (0.7-2.0) mmol/L Total Protein (6.3-8.2) g/dL Procalcitonin (0.02-0.09) ng/mL Assessment and Plan Assessment: Impression 1. ESRD on dialysis Sunday. Fistula right forearm large aneurysmal 2. Admitted with abdominal pain and possible cholecystectomy today are for gallbladder wall thickening by ultrasound 3. Type 1 diabetes since age 18 blood sugars are reasonable 4. Anemia hemoglobin is 12.5 above target for ESRD 5. Blood pressure controlled Recommendation 1. Maintain his dialysis schedule today. 2. Watch vital signs and monitor labs as not needed 3. Control blood sugars as is being done.
[2021-05-20 07:27] LABS: Glucose,Whole Blood 168 mg/dL (75-99)
[2021-05-20] MEDS: amLODIPine 10 MG TAB PO SCH (07:59)
[2021-05-20] MEDS: SERTRALINE 50 MG TAB PO SCH (07:59)
[2021-05-20] MEDS: MULTIVITAMINS, THERA 1 EACH TAB PO SCH (07:59)
[2021-05-20] MEDS: INSULIN DETEMIR (LEVEMIR) 100 UNIT/ML SYR SQ SCH (08:00)
[2021-05-20] MEDS: PIPERACILLIN-TAZOBACTAM 3.375 GM in SODIUM CHLORIDE 0.9% 100 ML IVPB SCH ×2 (08:00→21:51)
[2021-05-20] MEDS: carvediloL 12.5 MG TAB PO SCH ×2 (08:00→21:50)
[2021-05-20] MEDS: ALBUTEROL NEBULIZED 2.5 MG/3 ML INHALATION SCH ×4 (08:55→20:46)
[2021-05-20 09:12] LABS: Basophils # (A) 0.07 X 10*3/uL (0.00-0.10); Basophils % (A) 1.1 %; Eosinophils # (A) 0.27 X 10*3/uL (0.04-0.35); Eosinophils % (A) 4.3 %; HCT 38.9 % (39.6-50.0); Lymphocytes % (A) 17.4 %; MCH 29.6 pg (27.0-32.0); MCHC 30.8 g/dL (32.0-37.0); MCV 95.8 fL (80.0-97.0); Mean Platelet Volume 10.7 fL (9.5-12.2); Monocytes # (A) 0.59 X 10*3/uL (0.20-1.00); Monocytes % (A) 9.3 %; Neutrophils # (A) 4.28 X 10*3/uL (1.80-7.70); Neutrophils % (A) 67.6 %; Platelet Count 212 X 10*3/uL (140-440); RBC 4.06 X 10*6/uL (4.40-5.60); RDW 14.9 % (11.5-14.5); WBC 6.33 X 10*3/uL (4.50-10.00)
[2021-05-20] MEDS: LACTATED RINGERS 1,000 ML IV SCH (09:36)
[2021-05-20 10:56] LABS: African American GFR (CKD) 11.7 (60.0-200.0); Albumin 3.7 g/dL (3.80-4.90); Albumin/Globulin Ratio 1.68 (1.60-3.17); Anion Gap 12.6 mmol/L (4.00-12.00); BUN/Creat Ratio 5.81 Ratio (12.00-20.00); Calcium 8.4 mg/dL (8.7-10.3); Carbon Dioxide 27.4 mmol/L (21.6-31.8); Globulin 2.2 g/dL (1.6-3.3); Non-African American GFR(CKD) 10.1 (60.0-200.0); Potassium 5.5 mmol/L (3.5-5.5); Total Bilirubin 0.1 mg/dL (0.2-1.2); Total Protein 5.9 g/dL (6.2-8.2)
[2021-05-20 11:34] LABS: Glucose,Whole Blood 167 mg/dL (75-99)
[2021-05-20] MEDS ORDERED: IV FLUID CONTINUATION 1,000 ML IV ONE (16:17)
[2021-05-20 16:32] LABS: Glucose,Whole Blood 132 mg/dL (75-99)
--- NOTE | 2021-05-20 16:58 | P.PN ---
Progress Note - Text Progress Note Date: 05/20/21 Chief Complaint: Abdominal pain History of presenting complaint: This is a 41-year-old patient follows with Dr. Trevino. Extensive medical history. Chronic stable medical conditions include asthma, diabetes, , hypertension, hyperlipidemia, history of bilateral pleural effusions, cardiac tamponade window, end-stage kidney disease on hemodialysis Sunday and Sunday , fistula in the right forearm, minimal bone disease, chronic anemia, peptic ulcer disease, peripheral arterial disease bilateral poor vision. Also has a fistula in the left arm it is maturing Patient presented to [facility] yesterday abdominal pain starting of the previous day. More so central. No nausea vomiting. No change in bowel movement pattern. Denies any fever and chills. Patient don't have any cough shortness of breath nausea vomiting. A computed tomography scan of the chest abdomen pelvis done that was unremarkable did show some infiltrate in the left side. Has patient was sent down here. Patient still having abdominal pain. Admitted with acute cholecystitis. Started on IV Zosyn. May 20: Sitting up in bed. Getting hemodialysis. Mother is visiting. Decreased abdominal pain. Due for surgery this afternoon. No nausea vomiting. No fever Review of systems: Was done for constitutional, cardiovascular, GI, pulmonary. relevant finding as above Active Medications Acetaminophen (Acetaminophen Tab 325 Mg Tab) 650 mg PO Q6HR PRN PRN Reason: Mild Pain or Fever > 100.5 Hydrocodone Bitart/Acetaminophen (Hydrocodone/Apap 5-325mg 1 Each Tab) 1 each PO BID PRN PRN Reason: Pain Last Admin: 05/19/21 09:13 Dose: 1 each Documented by: Albuterol Sulfate (Albuterol Nebulized 2.5 Mg/3 Ml) 2.5 mg INHALATION RT-QID [facility] Last Admin: 05/20/21 16:23 Dose: Not Given Documented by: Amlodipine Besylate (Amlodipine 10 Mg Tab) 10 mg PO DAILY [facility] Last Admin: 05/20/21 07:59 Dose: 10 mg Documented by: Aripiprazole (Aripiprazole 15 Mg Tab) 15 mg PO HS [facility] Last Admin: 05/20/21 00:31 Dose: 15 mg Documented by: Calcium Carbonate/Glycine (Calcium Carbonate 500 Mg Chewable) 1,000 mg PO Q4HR PRN PRN Reason: Dyspepsia Carvedilol (Carvedilol 12.5 Mg Tab) 12.5 mg PO BID [facility] Last Admin: 05/20/21 08:00 Dose: 12.5 mg Documented by: Dicyclomine HCl (Dicyclomine 20 Mg Tab) 20 mg PO QID PRN PRN Reason: GI Upset Last Admin: 05/19/21 21:40 Dose: 20 mg Documented by: Gabapentin (Gabapentin 100 Mg Cap) 100 mg PO HS [facility] Last Admin: 05/19/21 21:31 Dose: 100 mg Documented by: Hydralazine HCl (Hydralazine Hcl 50 Mg Tab) 100 mg PO TID [facility] Last Admin: 05/20/21 16:49 Dose: Not Given Documented by: Hydralazine HCl (Hydralazine Hcl 20 Mg/Ml 1 Ml Vial) 10 mg IVP Q4HR PRN PRN Reason: Blood Pressure - High Last Admin: 05/19/21 14:44 Dose: 10 mg Documented by: Hydromorphone HCl (Hydromorphone 0.5 Mg/0.5 Ml Syringe) 0.5 mg IVP Q3HR PRN PRN Reason: Pain Last Admin: 05/20/21 15:53 Dose: 0.5 mg Documented by: Piperacillin Sod/Tazobactam (Sod 3.375 gm/ Sodium Chloride) 100 mls @ 25 mls/hr IVPB Q12HR [facility] Last Admin: 05/20/21 08:00 Dose: 25 mls/hr Documented by: Lactated Ringer's (Lactated Ringers) 1,000 mls @ 20 mls/hr IV .Q24H [facility] Last Admin: 05/20/21 09:36 Dose: 20 mls/hr Documented by: Cefazolin Sodium 2 gm/ Sodium (Chloride) 50 mls @ 100 mls/hr IVPB ONCE PRN PRN Reason: Pre-Op Stop: 05/20/21 23:00 Indocyanine Green (Indocyanine Green 25 Mg Vial) 7.5 mg IV ONCE PRN PRN Reason: Pre-Op Stop: 05/20/21 23:00 Insulin Aspart (Insulin Aspart (Novolog) 100 Unit/Ml Vial) 0 unit SQ ACHS [facility]; Protocol Last Admin: 05/20/21 16:49 Dose: Not Given Documented by: Insulin Detemir (Insulin Detemir (Levemir) 100 Unit/Ml Syr) 20 unit SQ DAILY [facility] Last Admin: 05/20/21 08:00 Dose: Not Given Documented by: Loperamide HCl (Loperamide 2 Mg Cap) 2 mg PO QID PRN PRN Reason: Diarrhea Lorazepam (Lorazepam 0.5 Mg Tab) 0.5 mg PO Q6HR PRN PRN Reason: Anxiety Melatonin (Melatonin 3 Mg Tablet) 3 mg PO HS PRN PRN Reason: Insomnia Metoclopramide HCl (Metoclopramide 5 Mg Tab) 5 mg PO HS [facility] Last Admin: 05/19/21 21:31 Dose: 5 mg Documented by: Multivitamins (Multivitamins, Thera 1 Each Tab) 1 each PO DAILY [facility] Last Admin: 05/20/21 07:59 Dose: 1 each Documented by: Naloxone HCl (Naloxone 0.4 Mg/Ml 1 Ml Vial) 0.2 mg IV Q2M PRN PRN Reason: Opioid Reversal Ondansetron HCl (Ondansetron 4 Mg/2 Ml Vial) 4 mg IVP Q8HR PRN PRN Reason: Nausea And Vomiting Last Admin: 05/20/21 09:35 Dose: 4 mg Documented by: Pravastatin Sodium (Pravastatin Sodium 40 Mg Tab) 40 mg PO HS [facility] Last Admin: 05/19/21 21:31 Dose: 40 mg Documented by: Sertraline HCl (Sertraline 50 Mg Tab) 50 mg PO DAILY [facility] Last Admin: 05/20/21 07:59 Dose: 50 mg Documented by: Trazodone HCl (Trazodone Hcl 100 Mg Tab) 100 mg PO HS [facility] Last Admin: 05/19/21 21:31 Dose: 100 mg Documented by: Past medical history to include: Asthma, diabetes, GERD, peptic ulcer disease, hypertension, hyperlipidemia, bilateral pleural effusion with right-sided thoracentesis, decortication, cardiac tamponade window, diabetes type I since age of 21, on hemodialysis Sunday and Sunday of the fistula in the right lower arm. Minimal bone disease, chronic anemia, hiatal hernia, peptic ulcer disease, peripheral arterial disease, DJD, osteoarthritis of the left foot in 2012, have her take foot ulcers and amputations, right eye retinal detachment, left eye Blindness MRSA infections, ventriculoperitoneal shunt, depression Social history: Lives with his mother. No history of smoking. Alcohol rarely. Did chew tobacco in the past stopped 2016 Physical examination: VITAL SIGNS: 98.6, 66, 18, 100/58, 98% on 2 L GENERAL: sitting up in bed, awake EYES: Pupils equal. Conjunctiva pale. NECK: JVD not raised; masses not palpable. HEART: First and second heart sounds are normal; no edema. LUNGS: Respiratory rate increased; fair breath sounds. ABDOMEN: Soft, right-sided tenderness, no guarding rigidity, liver spleen not palpable, no masses palpable. PSYCH: Alert and oriented x3; mood and affect tired EXTREMITIES: Right forearm arm AV fistula . Left upper extremity fistula. Left foot second to fifth toe amputated NEUROLOGICAL: Decreased vision, otherwise cranial nerves grossly intact, pulmonary and sensation grossly intact INVESTIGATIONS, reviewed in the clinical context: May 20: White count 6.3 hemoglobin 12 platelets 212 potassium 5.5 BUN 36 creatinine 6.2 bilirubin 0.1 White count 6.3 hemoglobin 12.5 platelets 229 potassium 4.3 BUN 22 creatinine 4.89 bilirubin 0.4 AST 25 ALT 9 EKG tracing personally reviewed by me-normal sinus rhythm Chest x-ray film personally reviewed by me-questionable atelectasis Abdominal ultrasound: Gallbladder: No stones visualized. Wall of the limit of normal. Slightly hydropic. Assessment and plan: -Probable acute cholecystitis. IV Zosyn. Pending surgery to self not -No clinical evidence of pneumonia. Patient has no respiratory symptoms. No fever no chills. -Diabetes mellitus type 1, since age of 21, chronically on insulin Levemir 20 units subcu daily. Follow Accu-Cheks -Intermittent asthma, bronchodilators, -History of loculated right pleural effusion previous pigtail catheter placement and alteplase infusion -GERD Tums when necessary -Hyperlipidemia Pravachol 40 mg daily at bedtime -Essential hypertension with chronic kidney disease Hydralazine 100 mg 3 times a day, Norvasc 10 mg daily, -Chronic kidney disease minimal bone disease -Hiatal hernia -Peripheral arterial disease Pravachol, and baby aspirin -Bilateral poor vision from diabetic retinopathy -Depression Zoloft 50 mg daily, Desyrel 100 mg daily at bedtime -Chronic insomnia for multiple medical problems Melatonin 3 mg daily at bedtime when necessary, trazodone 100 mg daily at bedtime -End-stage kidney disease on hemodialysis Sunday and Sunday Hemodialysis. Consult nephrology. right arm AV fistula is being used. has a maturing left upper extremity fistula Care discussed with the patient and mother. IV Zosyn. Nothing by mouth. Pending surgery this afternoon
[2021-05-20] MEDS ORDERED: GLYCOPYRROLATE 0.2 MG/ML 2 ML VIAL ONE (18:19)
[2021-05-20] MEDS ORDERED: NEOSTIGMINE 1 MG/ML 10 ML VIAL ONE (18:19)
[2021-05-20] MEDS ORDERED: ROCURONIUM 10 MG/ML (5 ML VIAL) IV ONE (18:19)
[2021-05-20] MEDS ORDERED: LABETALOL 5 MG/ML VIAL MDV ONE (18:19)
[2021-05-20] MEDS ORDERED: fentaNYL (PF) 50 MCG/ML 2 ML AMP ONE (18:19)
[2021-05-20] MEDS ORDERED: LIDOCAINE 1% INJ 10MG/ML (20 ML MDV) ONE (18:19)
[2021-05-20] MEDS ORDERED: [UNRECOGNIZED DRUG - OTHER] IV ONE (18:19)
[2021-05-20] MEDS ORDERED: SODIUM CHLORIDE 0.9% 100 ML with ceFAZolin 2,000 MG IV ONE ×2 (18:47)
[2021-05-20] MEDS ORDERED: LIDOCAINE 1%-EPI 1:100,000 20 ML VIAL SQ ONE (18:59)
[2021-05-20] MEDS ORDERED: NALOXONE 0.4 MG/ML 1 ML VIAL IV PRN (19:34)
--- NOTE | 2021-05-20 19:39 | P.OP ---
Date of Procedure: 05/20/21 Description of Procedure: SURGEON: PATRICIA CASTELLANO MD PREOPERATIVE DIAGNOSES: 1. Acute cholecystitis with right upper quadrant abdominal pain 2. End-stage renal disease due to diabetes 3. Uncontrolled diabetes type 1, insulin-dependent 4. Hypertensive heart disease 5. History of cardiac tamponade 6. History of bilateral pleural effusions status post pleurodesis POSTOPERATIVE DIAGNOSES: 1. Acute cholecystitis with right upper quadrant abdominal pain 2. End-stage renal disease due to diabetes 3. Uncontrolled diabetes type 1, insulin-dependent 4. Hypertensive heart disease 5. History of cardiac tamponade 6. History of bilateral pleural effusions status post pleurodesis 7. Hepatomegaly OPERATION: Robotic-assisted da Dahlia Xi laparoscopic cholecystectomy, multiport with FIREFLY ESTIMATED BLOOD LOSS: 5 mL. SPECIMENS REMOVED: Gallbladder. COMPLICATIONS: None. OPERATIVE FINDINGS: 1. Severe hepatomegaly 2. Acute on chronic cholecystitis INDICATIONS: The patient is a 41-year-old female who presents with clinical acute cholecystitis. Robotic assisted laparoscopic approach was described. Benefits and risks of the procedure including but not limited to bleeding, infection, injury to the biliary tree was described. Informed consent was obtained. DESCRIPTION OF PROCEDURE: Patient was brought to the operating room, placed in supine position. After general induction, the abdomen had been prepped and draped in standard sterile fashion. The robotic da Dahlia XI system was primed. After a timeout protocol was performed, the patient had been prepped and draped in standard sterile fashion. The patient was injected with indocyanine green. A 5 mm 0 degrees laparoscopic trocar entry was performed along the left upper quadrant. The abdomen insufflated to 15 mmHg pressure which was tolerated well. Diagnostic laparoscopy demonstrated no injury to bowel viscera or mesentery. The liver surface was unremarkable. Next, two 8 mm robotic ports were placed along the right upper abdomen. The camera 8-mm port was maintained along the epigastrium. Another 8 mm port was placed along the left upper abdominal wall after exchanging the 5 mm port. Please note that the ports were placed at least 10 to 15 cm away from the target anatomy of the gallbladder. The robot was docked along the left lateral abdomen. The patient was repositioned in reverse Trendelenburg position. Using a grasper for arm 3, a grasper for arm 4, including hook cautery for arm 1, the robotic system was docked and primed as described. Instruments were interchanged by the regional administrative assistant including hook cautery, Bovie cautery and clip appliers. I had sat at the console. Next attention was brought to the infundibulum and cystic structures. The infundibulum and cystic duct were dissected free from surrounding tissues. The cystic duct was isolated. FIREFLY was used to identify the cystic artery and cystic structures. A critical view of safety was obtained. Large PLASTIC clips were used throughout the entire case. Using a clip employment security officer, 2 clips were placed at the junction of the infundibulum and cystic duct. The cystic duct was divided between clips. Next, the cystic artery was similarly clipped and cauterized. Electro-Bovie cautery was used to remove the gallbladder from the hepatic fossa. Hemostasis was checked and found to be adequate. The robot was undocked. I re-scrubbed into the case. Using a 10 mm Endo Catch bag via the left upper quadrant incision, the specimen was removed from the abdominal cavity. All pneumoperitoneum instruments were evacuated from the abdominal cavity. The incisions were reapproximated using 4-0 Monocryl in an interrupted subcuticular fashion. Fascial defects were less than 8 mm in size. Please note along the trocar sites, local anesthetic was placed as a field block prior to insertion of all instruments. Liquid glue was applied to the skin. At the end of the procedure needle, sponge, and instrument count had been verified correct by the surgical technology instructor. The patient was transferred to postanesthesia care unit in stable condition. Intraoperative films were shared with the patient's family.
[2021-05-20 20:04] LABS: Glucose,Whole Blood 177 mg/dL (75-99)
[2021-05-20 21:07] LABS: Glucose,Whole Blood 161 mg/dL (75-99)
[2021-05-20] MEDS: traZODone HCL 100 MG TAB PO SCH (21:50)
[2021-05-20] MEDS: PRAVASTATIN SODIUM 40 MG TAB PO SCH (21:50)
[2021-05-20] MEDS: GABAPENTIN 100 MG CAP PO SCH (21:50)
[2021-05-20] MEDS: MELATONIN 3 MG TABLET PO PRN (21:50)
[2021-05-20] MEDS: METOCLOPRAMIDE 5 MG TAB PO SCH (21:51)
[2021-05-21] MEDS: HYDROmorphone 0.5 MG/0.5 ML SYRINGE IVP PRN ×4 (05:22→17:42)
[2021-05-21] MEDS: LACTATED RINGERS 1,000 ML IV SCH (05:38)
[2021-05-21 08:11] LABS: Glucose,Whole Blood 201 mg/dL (75-99)
[2021-05-21] MEDS: PIPERACILLIN-TAZOBACTAM 3.375 GM in SODIUM CHLORIDE 0.9% 100 ML IVPB SCH ×2 (08:13→23:33)
[2021-05-21] MEDS: hydrALAZINE HCL 50 MG TAB PO SCH ×3 (08:14→23:32)
[2021-05-21] MEDS: SERTRALINE 50 MG TAB PO SCH (08:14)
[2021-05-21] MEDS: MULTIVITAMINS, THERA 1 EACH TAB PO SCH (08:14)
[2021-05-21] MEDS: INSULIN DETEMIR (LEVEMIR) 100 UNIT/ML SYR SQ SCH (08:14)
[2021-05-21] MEDS: carvediloL 12.5 MG TAB PO SCH ×2 (08:14→23:32)
[2021-05-21] MEDS: amLODIPine 10 MG TAB PO SCH (08:14)
[2021-05-21] MEDS: HYDROcodone/APAP 5-325MG 1 EACH TAB PO PRN (08:17)
[2021-05-21] MEDS: ALBUTEROL NEBULIZED 2.5 MG/3 ML INHALATION SCH ×4 (08:24→18:57)
--- NOTE | 2021-05-21 09:16 | P.PN ---
Subjective Patient is seen in follow-up for end-stage renal disease. He is maintained on hemodialysis on Sunday schedule. Resting in bed. No active complaints. Vital signs are stable. General: The patient appeared well nourished and normally developed. HEENT: Head exam is unremarkable. LUNGS: Breath sounds decreased. HEART: Rate and Rhythm are regular. ABDOMEN: Soft, no distention. EXTREMITITES: No edema. Objective - Vital Signs Vital signs: Vital Signs Temp 97.9 F 05/21/21 01:27 Pulse 71 05/21/21 01:27 Resp 15 05/21/21 01:27 BP 177/47 05/21/21 01:27 Pulse Ox 98 05/21/21 08:24 Intake & Output 05/20/21 05/21/21 05/21/21 18:59 06:59 18:59 Intake Total 500 460 Output Total 1800 5 Balance -1300 455 Intake: IV 500 20 Intake, IV Titration 200 Amount Piperacillin-Tazobactam 3 100 .375 gm In Sodium Chloride 0.9% 100 ml @ 25 mls/hr IVPB Q12HR [facility] Rx #:[id number] ceFAZolin 2 gm In Sodium 100 Chloride 0.9% 50 ml @ 100 mls/hr IVPB ONCE PRN Rx# :[id number] Oral 240 Output: Urine 0 Hemodialysis 1800 Estimated Blood Loss 5 Other: # Voids 0 - Labs CBC & Chem 7: 05/20/21 05:19 05/20/21 05:19 Labs: Abnormal Lab Results - Last 24 Hours (Table) 05/20/21 05/20/21 05/20/21 Range/Units 05:19 11:32 16:31 Anion Gap 12.60 H (4.00-12.00) mmol/L BUN 36.0 H (9.0-27.0) mg/dL Creatinine 6.2 H (0.6-1.5) mg/dL Est GFR (CKD-EPI)AfAm 11.7 L (60.0-200.0) Est GFR (CKD-EPI)NonAf 10.1 L (60.0-200.0) BUN/Creatinine Ratio 5.81 L (12.00-20.00) Ratio Glucose 129 H (70-110) mg/dL POC Glucose (mg/dL) 167 H 132 H (75-99) mg/dL Calcium 8.4 L (8.7-10.3) mg/dL Total Bilirubin 0.1 L (0.2-1.2) mg/dL Total Protein 5.9 L (6.2-8.2) g/dL Albumin 3.70 L (3.80-4.90) g/dL 05/20/21 05/20/21 05/21/21 Range/Units 20:02 21:06 08:10 Anion Gap (4.00-12.00) mmol/L BUN (9.0-27.0) mg/dL Creatinine (0.6-1.5) mg/dL Est GFR (CKD-EPI)AfAm (60.0-200.0) Est GFR (CKD-EPI)NonAf (60.0-200.0) BUN/Creatinine Ratio (12.00-20.00) Ratio Glucose (70-110) mg/dL POC Glucose (mg/dL) 177 H 161 H 201 H (75-99) mg/dL Calcium (8.7-10.3) mg/dL Total Bilirubin (0.2-1.2) mg/dL Total Protein (6.2-8.2) g/dL Albumin (3.80-4.90) g/dL Microbiology - Last 24 Hours (Table) 05/19/21 07:33 Blood Culture - Preliminary Blood No Growth after 24 hours 05/19/21 07:33 Blood Culture - Preliminary Blood No Growth after 24 hours Assessment and Plan Plan: Assessment: 1. End-stage renal disease maintained on hemodialysis on Sunday schedule. 2. Acute cholecystitis status post cholecystectomy on May 20. On antibiotics as well. 3. Hypertension with chronic kidney disease. 4. Diabetes mellitus. Plan: Hemodialysis on Sunday.
--- NOTE | 2021-05-21 09:59 | P.PN ---
Subjective Progress Note Date: 05/21/21 Principal diagnosis: Cholecystitis Patient complaining of pain today. Says his pain is more than it was preoperatively. No nausea or vomiting. Stable vital signs. Objective - Vital Signs Vital signs: Vital Signs Temp 98.3 F 05/21/21 08:00 Pulse 81 05/21/21 08:00 Resp 16 05/21/21 08:00 BP 131/90 05/21/21 08:00 Pulse Ox 98 05/21/21 08:24 Intake & Output 05/20/21 05/21/21 05/21/21 18:59 06:59 18:59 Intake Total 500 460 Output Total 1800 5 Balance -1300 455 Intake: IV 500 20 Intake, IV Titration 200 Amount Piperacillin-Tazobactam 3 100 .375 gm In Sodium Chloride 0.9% 100 ml @ 25 mls/hr IVPB Q12HR [facility] Rx #:[id number] ceFAZolin 2 gm In Sodium 100 Chloride 0.9% 50 ml @ 100 mls/hr IVPB ONCE PRN Rx# :[id number] Oral 240 Output: Urine 0 Hemodialysis 1800 Estimated Blood Loss 5 Other: # Voids 0 - Exam Abdomen: Soft, nondistended, mild diffuse tenderness, incisions clean and dry - Labs CBC & Chem 7: 05/20/21 05:19 05/20/21 05:19 Labs: Abnormal Lab Results - Last 24 Hours (Table) 05/20/21 05/20/21 05/20/21 Range/Units 05:19 11:32 16:31 Anion Gap 12.60 H (4.00-12.00) mmol/L BUN 36.0 H (9.0-27.0) mg/dL Creatinine 6.2 H (0.6-1.5) mg/dL Est GFR (CKD-EPI)AfAm 11.7 L (60.0-200.0) Est GFR (CKD-EPI)NonAf 10.1 L (60.0-200.0) BUN/Creatinine Ratio 5.81 L (12.00-20.00) Ratio Glucose 129 H (70-110) mg/dL POC Glucose (mg/dL) 167 H 132 H (75-99) mg/dL Calcium 8.4 L (8.7-10.3) mg/dL Total Bilirubin 0.1 L (0.2-1.2) mg/dL Total Protein 5.9 L (6.2-8.2) g/dL Albumin 3.70 L (3.80-4.90) g/dL 05/20/21 05/20/21 05/21/21 Range/Units 20:02 21:06 08:10 Anion Gap (4.00-12.00) mmol/L BUN (9.0-27.0) mg/dL Creatinine (0.6-1.5) mg/dL Est GFR (CKD-EPI)AfAm (60.0-200.0) Est GFR (CKD-EPI)NonAf (60.0-200.0) BUN/Creatinine Ratio (12.00-20.00) Ratio Glucose (70-110) mg/dL POC Glucose (mg/dL) 177 H 161 H 201 H (75-99) mg/dL Calcium (8.7-10.3) mg/dL Total Bilirubin (0.2-1.2) mg/dL Total Protein (6.2-8.2) g/dL Albumin (3.80-4.90) g/dL Microbiology - Last 24 Hours (Table) 05/19/21 07:33 Blood Culture - Preliminary Blood No Growth after 48 hours 05/19/21 07:33 Blood Culture - Preliminary Blood No Growth after 48 hours Assessment and Plan (1) Cholecystitis Narrative/Plan: Will check routine labs at this time. Continued advancing diet as tolerated. Ambulate. Current Visit: Yes Status: Acute Code(s): K81.9 - CHOLECYSTITIS, UNSPECIFIED SNOMED Code(s): 50902753
[2021-05-21] MEDS: INSULIN ASPART (NovoLOG) 100 UNIT/ML VIAL SQ SCH ×4 (11:07→23:35)
[2021-05-21 11:45] LABS: Glucose,Whole Blood 212 mg/dL (75-99)
[2021-05-21 13:30] LABS: African American GFR (CKD) 11 (>60 ml/min/1.73 sqM); Anion Gap 16 mmol/L; Blood Urea Nitrogen 46 mg/dL (9-20); Calcium 8.1 mg/dL (8.4-10.2); Carbon Dioxide 23 mmol/L (22-30); Chloride 94 mmol/L (98-107); Glucose 215 mg/dL (74-99); Non-African American GFR(CKD) 10 (>60 ml/min/1.73 sqM); Phosphorus 7.6 mg/dL (2.5-4.5); Potassium 5.3 mmol/L (3.5-5.1); Sodium 133 mmol/L (137-145)
--- NOTE | 2021-05-21 14:56 | P.PN ---
Progress Note - Text Progress Note Date: 05/21/21 Chief Complaint: Abdominal pain History of presenting complaint: This is a 41-year-old patient follows with Dr. Trevino. Extensive medical history. Chronic stable medical conditions include asthma, diabetes, , hypertension, hyperlipidemia, history of bilateral pleural effusions, cardiac tamponade window, end-stage kidney disease on hemodialysis Sunday and Sunday , fistula in the right forearm, minimal bone disease, chronic anemia, peptic ulcer disease, peripheral arterial disease bilateral poor vision. Also has a fistula in the left arm it is maturing Patient presented to [facility] yesterday abdominal pain starting of the previous day. More so central. No nausea vomiting. No change in bowel movement pattern. Denies any fever and chills. Patient don't have any cough shortness of breath nausea vomiting. A computed tomography scan of the chest abdomen pelvis done that was unremarkable did show some infiltrate in the left side. Has patient was sent down here. Patient still having abdominal pain. Admitted with acute cholecystitis. Started on IV Zosyn. May 20: Sitting up in bed. Getting hemodialysis. Mother is visiting. Decreased abdominal pain. Due for surgery this afternoon. No nausea vomiting. No fever May 21: Underwent cholecystectomy yesterday. Having abdominal pain. Did not eat any breakfast. Wants liquids. Liquid meal ordered. Tired. Review of systems: Was done for constitutional, cardiovascular, GI, pulmonary. relevant finding as above Active Medications Acetaminophen (Acetaminophen Tab 325 Mg Tab) 650 mg PO Q6HR PRN PRN Reason: Mild Pain or Fever > 100.5 Hydrocodone Bitart/Acetaminophen (Hydrocodone/Apap 5-325mg 1 Each Tab) 1 each PO BID PRN PRN Reason: Pain Last Admin: 05/21/21 08:17 Dose: 1 each Documented by: Albuterol Sulfate (Albuterol Nebulized 2.5 Mg/3 Ml) 2.5 mg INHALATION RT-QID [facility] Last Admin: 05/21/21 12:27 Dose: Not Given Documented by: Amlodipine Besylate (Amlodipine 10 Mg Tab) 10 mg PO DAILY [facility] Last Admin: 05/21/21 08:14 Dose: 10 mg Documented by: Aripiprazole (Aripiprazole 15 Mg Tab) 15 mg PO HS [facility] Last Admin: 05/20/21 21:51 Dose: 15 mg Documented by: Calcium Carbonate/Glycine (Calcium Carbonate 500 Mg Chewable) 1,000 mg PO Q4HR PRN PRN Reason: Dyspepsia Carvedilol (Carvedilol 12.5 Mg Tab) 12.5 mg PO BID [facility] Last Admin: 05/21/21 08:14 Dose: 12.5 mg Documented by: Dicyclomine HCl (Dicyclomine 20 Mg Tab) 20 mg PO QID PRN PRN Reason: GI Upset Last Admin: 05/19/21 21:40 Dose: 20 mg Documented by: Gabapentin (Gabapentin 100 Mg Cap) 100 mg PO HS [facility] Last Admin: 05/20/21 21:50 Dose: 100 mg Documented by: Hydralazine HCl (Hydralazine Hcl 50 Mg Tab) 100 mg PO TID [facility] Last Admin: 05/21/21 14:52 Dose: 100 mg Documented by: Hydralazine HCl (Hydralazine Hcl 20 Mg/Ml 1 Ml Vial) 10 mg IVP Q4HR PRN PRN Reason: Blood Pressure - High Last Admin: 05/19/21 14:44 Dose: 10 mg Documented by: Hydromorphone HCl (Hydromorphone 0.5 Mg/0.5 Ml Syringe) 0.5 mg IVP Q3HR PRN PRN Reason: Pain Last Admin: 05/21/21 14:50 Dose: 0.5 mg Documented by: Piperacillin Sod/Tazobactam (Sod 3.375 gm/ Sodium Chloride) 100 mls @ 25 mls/hr IVPB Q12HR [facility] Last Admin: 05/21/21 08:13 Dose: 25 mls/hr Documented by: Lactated Ringer's (Lactated Ringers) 1,000 mls @ 20 mls/hr IV .Q24H [facility] Last Admin: 05/21/21 05:38 Dose: Not Given Documented by: Insulin Aspart (Insulin Aspart (Novolog) 100 Unit/Ml Vial) 0 unit SQ [facility]; Protocol Last Admin: 05/21/21 11:45 Dose: 3 unit Documented by: Insulin Detemir (Insulin Detemir (Levemir) 100 Unit/Ml Syr) 20 unit SQ DAILY [facility] Last Admin: 05/21/21 08:14 Dose: 20 unit Documented by: Loperamide HCl (Loperamide 2 Mg Cap) 2 mg PO QID PRN PRN Reason: Diarrhea Lorazepam (Lorazepam 0.5 Mg Tab) 0.5 mg PO Q6HR PRN PRN Reason: Anxiety Last Admin: 05/20/21 21:52 Dose: 0.5 mg Documented by: Melatonin (Melatonin 3 Mg Tablet) 3 mg PO HS PRN PRN Reason: Insomnia Last Admin: 05/20/21 21:50 Dose: 3 mg Documented by: Metoclopramide HCl (Metoclopramide 5 Mg Tab) 5 mg PO HS [facility] Last Admin: 05/20/21 21:51 Dose: 5 mg Documented by: Multivitamins (Multivitamins, Thera 1 Each Tab) 1 each PO DAILY [facility] Last Admin: 05/21/21 08:14 Dose: 1 each Documented by: Naloxone HCl (Naloxone 0.4 Mg/Ml 1 Ml Vial) 0.2 mg IV Q2M PRN PRN Reason: Opioid Reversal Ondansetron HCl (Ondansetron 4 Mg/2 Ml Vial) 4 mg IVP Q8HR PRN PRN Reason: Nausea And Vomiting Last Admin: 05/20/21 09:35 Dose: 4 mg Documented by: Pravastatin Sodium (Pravastatin Sodium 40 Mg Tab) 40 mg PO HS [facility] Last Admin: 05/20/21 21:50 Dose: 40 mg Documented by: Sertraline HCl (Sertraline 50 Mg Tab) 50 mg PO DAILY [facility] Last Admin: 05/21/21 08:14 Dose: 50 mg Documented by: Trazodone HCl (Trazodone Hcl 100 Mg Tab) 100 mg PO [facility] Last Admin: 05/20/21 21:50 Dose: 100 mg Documented by: Past medical history to include: Asthma, diabetes, GERD, peptic ulcer disease, hypertension, hyperlipidemia, bilateral pleural effusion with right-sided thoracentesis, decortication, cardiac tamponade window, diabetes type I since age of 21, on hemodialysis Sunday and Sunday of the fistula in the right lower arm. Minimal bone disease, chronic anemia, hiatal hernia, peptic ulcer disease, peripheral arterial disease, DJD, osteoarthritis of the left foot in 2012, have her take foot ulcers and amputations, right eye retinal detachment, left eye Blindness MR infections, ventriculoperitoneal shunt, depression Social history: Lives with his mother. No history of smoking. Alcohol rarely. Did chew tobacco in the past stopped 2016 Physical examination: VITAL SIGNS: 98.3, 81, 16, 131/90, 91% room air GENERAL: Laying in bed, tired EYES: Pupils equal. Conjunctiva pale. NECK: JVD not raised; masses not palpable. HEART: First and second heart sounds are normal; no edema. LUNGS: Respiratory rate increased; fair breath sounds. ABDOMEN: Soft, tender, no guarding rigidity, liver spleen not palpable, no masses palpable. PSYCH: Alert and oriented x3; mood and affect tired EXTREMITIES: Right forearm arm AV fistula . Left upper extremity fistula. Left foot second to fifth toe amputated NEUROLOGICAL: Decreased vision, otherwise cranial nerves grossly intact, pulmonary and sensation grossly intact INVESTIGATIONS, reviewed in the clinical context: May 21: Potassium 5.3 creatinine 6.39 May 20: White count 6.3 hemoglobin 12 platelets 212 potassium 5.5 BUN 36 creatinine 6.2 bilirubin 0.1 White count 6.3 hemoglobin 12.5 platelets 229 potassium 4.3 BUN 22 creatinine 4.89 bilirubin 0.4 AST 25 ALT 9 EKG tracing personally reviewed by me-normal sinus rhythm Chest x-ray film personally reviewed by me-questionable atelectasis Abdominal ultrasound: Gallbladder: No stones visualized. Wall of the limit of normal. Slightly hydropic. Assessment and plan: -acute cholecystitis. Cholecystectomy on May 20: IV Zosyn. Full liquid diet -No clinical evidence of pneumonia. Patient has no respiratory symptoms. No fever no chills. -Diabetes mellitus type 1, since age of 21, chronically on insulin Levemir 20 units subcu daily. Follow Accu-Cheks -Intermittent asthma, bronchodilators, -History of loculated right pleural effusion previous pigtail catheter placement and alteplase infusion -GERD Tums when necessary -Hyperlipidemia Pravachol 40 mg daily at bedtime -Essential hypertension with chronic kidney disease Hydralazine 100 mg 3 times a day, Norvasc 10 mg daily, -Chronic kidney disease minimal bone disease -Hiatal hernia -Peripheral arterial disease Pravachol, and baby aspirin -Bilateral poor vision from diabetic retinopathy -Depression Zoloft 50 mg daily, Desyrel 100 mg daily at bedtime -Chronic insomnia for multiple medical problems Melatonin 3 mg daily at bedtime when necessary, trazodone 100 mg daily at bedtime -End-stage kidney disease on hemodialysis Sunday and Sunday Hemodialysis. Consult nephrology. right arm AV fistula is being used. has a maturing left upper extremity fistula Changed to full liquid diet. Advance diet as tolerated. Other medications to continue. Continue IV Zosyn.
[2021-05-21 16:37] LABS: Glucose,Whole Blood 127 mg/dL (75-99)
[2021-05-21 17:28] LABS: Basophils # (A) 0.04 X 10*3/uL (0.00-0.10); Basophils % (A) 0.4 %; Eosinophils # (A) 0.05 X 10*3/uL (0.04-0.35); Eosinophils % (A) 0.5 %; HCT 40.5 % (39.6-50.0); HGB 12.1 g/dL (13.0-17.0); Lymphocytes % (A) 8.2 %; MCH 29.7 pg (27.0-32.0); MCHC 29.9 g/dL (32.0-37.0); MCV 99.3 fL (80.0-97.0); Monocytes # (A) 0.98 X 10*3/uL (0.20-1.00); Neutrophils % (A) 80.5 %; Platelet Count 198 X 10*3/uL (140-440); RBC 4.08 X 10*6/uL (4.40-5.60); RDW 14.9 % (11.5-14.5); WBC 9.81 X 10*3/uL (4.50-10.00)
[2021-05-21 19:46] LABS: Glucose,Whole Blood 150 mg/dL (75-99)
--- NOTE | 2021-05-21 20:29 | P.EN ---
A team note Activated at 7:38 pm. Arrived on the scene shortly after. Reviewed the chart and discussed the case with RN. The patient was admitted for acute cholecystitis and had been getting opiate pain medications including [place] on Dilaudid. The patient had called the RN into his room as he felt ill. He reported feeling tired and dizzy. The RN documented respiratory rate as 6 with remaining vitals showing BP 146/86, SpO2 87% on room air, and a pulse of 70. The patient had last received [place] at 5 PM and Dilaudid at 6 PM. The RN immediately gave the patient Narcan 0.2 mg after which his respiratory rate increased to 8 and he became more arousable. At time of my arrival, the patient's vitals were BP 182/78, SpO2 100% on 4 L nasal cannula, and a pulse of 98 with respiratory rate 8. General: Chronically ill-appearing male, in no acute distress, appears significantly older stated age HEENT: NC/AT, anicteric sclerae, moist conjunctiva, no lid-lag, PERRLA Cardiovascular: S1/S2 wnl, no murmurs, rubs, or gallops Lungs: Clear to auscultation, normal respiratory effort, no accessory muscle use Abdominal: Soft, post-surgical with laptoscopic incisions closed and healing, non-tender, non-distended, no guarding, rebound, or rigidity Skin: Warm, dry Extremities: No edema or contractures Psychiatric: Somewhat lethargic, oriented to person, place and time, appropriate affect Neuro: Moving all extremities, no gross focal deficits noted Assessment/Plan Opiate overdose in setting of ESRD -An additional 0.2 mg of Narcan was ordered for the patient and was administered at the bedside -Advised the RN to hold any further opiates at this time -Patient's primary physician Dr. Stone notified by the RN -Continue close monitoring Total time spent providing critical care for this patient including chart review: Greater than 30 minutes
[2021-05-21] MEDS: GABAPENTIN 100 MG CAP PO SCH (23:32)
[2021-05-21] MEDS: PRAVASTATIN SODIUM 40 MG TAB PO SCH (23:32)
[2021-05-21] MEDS: traZODone HCL 100 MG TAB PO SCH (23:32)
[2021-05-21] MEDS: ARIPiprazole 15 MG TAB PO SCH (23:33)
[2021-05-21] MEDS: METOCLOPRAMIDE 5 MG TAB PO SCH (23:33)
[2021-05-22] MEDS: LACTATED RINGERS 1,000 ML IV SCH (04:16)
[2021-05-22 07:06] LABS: Glucose,Whole Blood 163 mg/dL (75-99)
[2021-05-22] MEDS: ALBUTEROL NEBULIZED 2.5 MG/3 ML INHALATION SCH ×4 (08:13→21:13)
[2021-05-22] MEDS: MULTIVITAMINS, THERA 1 EACH TAB PO SCH (08:54)
[2021-05-22] MEDS: SERTRALINE 50 MG TAB PO SCH (08:54)
[2021-05-22] MEDS: INSULIN ASPART (NovoLOG) 100 UNIT/ML VIAL SQ SCH ×4 (08:54→22:39)
[2021-05-22] MEDS: hydrALAZINE HCL 50 MG TAB PO SCH ×3 (08:55→22:37)
[2021-05-22] MEDS: INSULIN DETEMIR (LEVEMIR) 100 UNIT/ML SYR SQ SCH (08:55)
[2021-05-22] MEDS: amLODIPine 10 MG TAB PO SCH (08:55)
[2021-05-22] MEDS: carvediloL 12.5 MG TAB PO SCH ×2 (08:55→22:38)
--- NOTE | 2021-05-22 08:55 | P.PN ---
Subjective Patient is seen in follow-up for end-stage renal disease. He is maintained on hemodialysis on Sunday schedule. Resting in bed. Admits to generalized soreness in his abdomen. On liquid diet. Vital signs are stable. General: The patient appeared well nourished and normally developed. HEENT: Head exam is unremarkable. LUNGS: Breath sounds decreased. HEART: Rate and Rhythm are regular. ABDOMEN: Soft, no distention. Generalized tenderness. EXTREMITITES: No edema. Objective - Vital Signs Vital signs: Vital Signs Temp 98.7 F 05/22/21 05:50 Pulse 71 05/22/21 05:50 Resp 16 05/22/21 02:19 BP 136/51 05/22/21 02:19 Pulse Ox 99 05/22/21 02:19 Intake & Output 05/21/21 05/22/21 05/22/21 18:59 06:59 18:59 Intake Total 750 540 Output Total 0 Balance 750 540 Intake: Intake, IV Titration 300 Amount IV Fluid Continuation 1, 200 000 ml @ 0 mls/hr IV .[facility] Rx#:[id number] Piperacillin-Tazobactam 3 100 .375 gm In Sodium Chloride 0.9% 100 ml @ 25 mls/hr IVPB Q12HR [facility] Rx #:[id number] Oral 750 240 Output: Urine 0 Other: # Voids 3 # Bowel Movements 2 - Labs CBC & Chem 7: 05/21/21 12:50 05/21/21 12:50 Labs: Abnormal Lab Results - Last 24 Hours (Table) 05/21/21 05/21/21 05/21/21 Range/Units 11:43 12:50 12:50 RBC 4.08 L (4.40-5.60) X 10*6/uL Hgb 12.1 L (13.0-17.0) g/dL MCV 99.3 H (80.0-97.0) fL MCHC 29.9 L (32.0-37.0) g/dL RDW 14.9 H (11.5-14.5) % Neutrophils # 7.90 H (1.80-7.70) X 10*3/uL Lymphocytes # 0.80 L (0.90-5.00) X 10*3/uL Sodium 133 L (137-145) mmol/L Potassium 5.3 H (3.5-5.1) mmol/L Chloride 94 L (98-107) mmol/L BUN 46 H (9-20) mg/dL Creatinine 6.39 H (0.66-1.25) mg/dL Glucose 215 H (74-99) mg/dL POC Glucose (mg/dL) 212 H (75-99) mg/dL Calcium 8.1 L (8.4-10.2) mg/dL Phosphorus 7.6 H (2.5-4.5) mg/dL 05/21/21 05/21/21 05/22/21 Range/Units 16:35 19:40 07:04 RBC (4.40-5.60) X 10*6/uL Hgb (13.0-17.0) g/dL MCV (80.0-97.0) fL MCHC (32.0-37.0) g/dL RDW (11.5-14.5) % Neutrophils # (1.80-7.70) X 10*3/uL Lymphocytes # (0.90-5.00) X 10*3/uL Sodium (137-145) mmol/L Potassium (3.5-5.1) mmol/L Chloride (98-107) mmol/L BUN (9-20) mg/dL Creatinine (0.66-1.25) mg/dL Glucose (74-99) mg/dL POC Glucose (mg/dL) 127 H 150 H 163 H (75-99) mg/dL Calcium (8.4-10.2) mg/dL Phosphorus (2.5-4.5) mg/dL Microbiology - Last 24 Hours (Table) 05/19/21 07:33 Blood Culture - Preliminary Blood No Growth after 48 hours 05/19/21 07:33 Blood Culture - Preliminary Blood No Growth after 48 hours Assessment and Plan Plan: Assessment: 1. End-stage renal disease maintained on hemodialysis on Sunday schedule. 2. Acute cholecystitis status post cholecystectomy on May 20. On a ntibiotics as well. 3. Hypertension with chronic kidney disease. Stable this morning. 4. Diabetes mellitus. 5. Chronic kidney disease mineral bone disease. Plan: Hemodialysis on Sunday. Add Mario Alberto.
[2021-05-22] MEDS: PIPERACILLIN-TAZOBACTAM 3.375 GM in SODIUM CHLORIDE 0.9% 100 ML IVPB SCH ×2 (09:02→22:35)
--- NOTE | 2021-05-22 09:41 | P.PN ---
Subjective Progress Note Date: 05/22/21 Principal diagnosis: Cholecystitis Patient still having abdominal pain. Says it is about the same as yesterday. CMP was not drawn yesterday instead it was a BMP. Some nausea. No vomiting. He is afebrile. Objective - Vital Signs Vital signs: Vital Signs Temp 98.7 F 05/22/21 05:50 Pulse 71 05/22/21 05:50 Resp 16 05/22/21 02:19 BP 136/51 05/22/21 02:19 Pulse Ox 99 05/22/21 02:19 Intake & Output 05/21/21 05/22/21 05/22/21 18:59 06:59 18:59 Intake Total 750 540 Output Total 0 Balance 750 540 Intake: Intake, IV Titration 300 Amount IV Fluid Continuation 1, 200 000 ml @ 0 mls/hr IV .STK -MED ONE Rx#:[id number] Piperacillin-Tazobactam 3 100 .375 gm In Sodium Chloride 0.9% 100 ml @ 25 mls/hr IVPB Q12HR [facility] Rx #:[id number] Oral 750 240 Output: Urine 0 Other: # Voids 3 # Bowel Movements 2 - Exam Abdomen: Soft, nondistended, mild tenderness upper abdomen and at incision sites, incisions clean and dry - Labs CBC & Chem 7: 05/21/21 12:50 05/21/21 12:50 Labs: Abnormal Lab Results - Last 24 Hours (Table) 05/21/21 05/21/21 05/21/21 Range/Units 11:43 12:50 12:50 RBC 4.08 L (4.40-5.60) X 10*6/uL Hgb 12.1 L (13.0-17.0) g/dL MCV 99.3 H (80.0-97.0) fL MCHC 29.9 L (32.0-37.0) g/dL RDW 14.9 H (11.5-14.5) % Neutrophils # 7.90 H (1.80-7.70) X 10*3/uL Lymphocytes # 0.80 L (0.90-5.00) X 10*3/uL Sodium 133 L (137-145) mmol/L Potassium 5.3 H (3.5-5.1) mmol/L Chloride 94 L (98-107) mmol/L BUN 46 H (9-20) mg/dL Creatinine 6.39 H (0.66-1.25) mg/dL Glucose 215 H (74-99) mg/dL POC Glucose (mg/dL) 212 H (75-99) mg/dL Calcium 8.1 L (8.4-10.2) mg/dL Phosphorus 7.6 H (2.5-4.5) mg/dL 05/21/21 05/21/21 05/22/21 Range/Units 16:35 19:40 07:04 RBC (4.40-5.60) X 10*6/uL Hgb (13.0-17.0) g/dL MCV (80.0-97.0) fL MCHC (32.0-37.0) g/dL RDW (11.5-14.5) % Neutrophils # (1.80-7.70) X 10*3/uL Lymphocytes # (0.90-5.00) X 10*3/uL Sodium (137-145) mmol/L Potassium (3.5-5.1) mmol/L Chloride (98-107) mmol/L BUN (9-20) mg/dL Creatinine (0.66-1.25) mg/dL Glucose (74-99) mg/dL POC Glucose (mg/dL) 127 H 150 H 163 H (75-99) mg/dL Calcium (8.4-10.2) mg/dL Phosphorus (2.5-4.5) mg/dL Microbiology - Last 24 Hours (Table) 05/19/21 07:33 Blood Culture - Preliminary Blood No Growth after 48 hours 05/19/21 07:33 Blood Culture - Preliminary Blood No Growth after 48 hours Assessment and Plan (1) Cholecystitis Narrative/Plan: Check CMP level today. Diet as tolerated. Ambulate. Current Visit: Yes Status: Acute Code(s): K81.9 - CHOLECYSTITIS, UNSPECIFIED SNOMED Code(s): 64091648
[2021-05-22] MEDS: DICYCLOMINE 20 MG TAB PO PRN ×2 (09:45→22:37)
[2021-05-22 11:37] LABS: Glucose,Whole Blood 294 mg/dL (75-99)
[2021-05-22] MEDS: CALCIUM ACETATE 667 MG TAB PO SCH ×2 (12:31→17:48)
[2021-05-22 14:26] LABS: Basophils % (A) 0 %; Eosinophils # (A) 0.2 k/uL (0-0.7); Eosinophils % (A) 2 %; HGB 12.5 gm/dL (13.0-17.5); Lymphocytes # (A) 0.6 k/uL (1.0-4.8); Lymphocytes % (A) 6 %; MCH 31.8 pg (25.0-35.0); MCHC 32.9 g/dL (31.0-37.0); MCV 96.6 fL (80.0-100.0); Mean Platelet Volume 8.2; Monocytes # (A) 0.5 k/uL (0-1.0); Monocytes % (A) 6 %; Neutrophils # (A) 7.4 k/uL (1.3-7.7); Neutrophils % (A) 83 %; Platelet Count 168 k/uL (150-450); RBC 3.93 m/uL (4.30-5.90); RDW 15.2 % (11.5-15.5); WBC 8.9 k/uL (3.8-10.6)
[2021-05-22 14:52] LABS: ALT 10 U/L (4-49); AST 35 U/L (17-59); African American GFR (CKD) 9 (>60 ml/min/1.73 sqM); Albumin 3.8 g/dL (3.5-5.0); Albumin/Globulin Ratio 1.7; Alkaline Phosphatase 93 U/L (38-126); Anion Gap 15 mmol/L; Blood Urea Nitrogen 58 mg/dL (9-20); Calcium 7.8 mg/dL (8.4-10.2); Carbon Dioxide 23 mmol/L (22-30); Chloride 94 mmol/L (98-107); Globulin 2.2 g/dL; Glucose 257 mg/dL (74-99); Non-African American GFR(CKD) 7 (>60 ml/min/1.73 sqM); Potassium 4.6 mmol/L (3.5-5.1); Sodium 132 mmol/L (137-145); Total Bilirubin 0.4 mg/dL (0.2-1.3)
--- NOTE | 2021-05-22 14:53 | P.PN ---
Progress Note - Text Progress Note Date: 05/22/21 Chief Complaint: Abdominal pain History of presenting complaint: This is a 41-year-old patient follows with Dr. Trevino. Extensive medical history. Chronic stable medical conditions include asthma, diabetes, , hypertension, hyperlipidemia, history of bilateral pleural effusions, cardiac tamponade window, end-stage kidney disease on hemodialysis Sunday and Sunday , fistula in the right forearm, minimal bone disease, chronic anemia, peptic ulcer disease, peripheral arterial disease bilateral poor vision. Also has a fistula in the left arm it is maturing Patient presented to [facility] yesterday abdominal pain starting of the previous day. More so central. No nausea vomiting. No change in bowel movement pattern. Denies any fever and chills. Patient don't have any cough shortness of breath nausea vomiting. A computed tomography scan of the chest abdomen pelvis done that was unremarkable did show some infiltrate in the left side. Has patient was sent down here. Patient still having abdominal pain. Admitted with acute cholecystitis. Started on IV Zosyn. May 20: Sitting up in bed. Getting hemodialysis. Mother is visiting. Decreased abdominal pain. Due for surgery this afternoon. No nausea vomiting. No fever May 21: Underwent cholecystectomy yesterday. Having abdominal pain. Did not eat any breakfast. Wants liquids. Liquid meal ordered. Tired. May 22: Doing better today. Having abdominal pain. Did eat all his breakfast. Sent to sit up in a chair and ambulate. Follow with surgery Review of systems: Was done for constitutional, cardiovascular, GI, pulmonary. relevant finding as above Active Medications Acetaminophen (Acetaminophen Tab 325 Mg Tab) 650 mg PO Q6HR PRN PRN Reason: Mild Pain or Fever > 100.5 Last Admin: 05/22/21 08:54 Dose: 650 mg Documented by: Hydrocodone Bitart/Acetaminophen (Hydrocodone/Apap 5-325mg 1 Each Tab) 1 each PO BID PRN PRN Reason: Pain Last Admin: 05/21/21 08:17 Dose: 1 each Documented by: Albuterol Sulfate (Albuterol Nebulized 2.5 Mg/3 Ml) 2.5 mg INHALATION RT-QID [facility] Last Admin: 05/22/21 11:39 Dose: Not Given Documented by: Amlodipine Besylate (Amlodipine 10 Mg Tab) 10 mg PO DAILY [facility] Last Admin: 05/22/21 08:55 Dose: 10 mg Documented by: Aripiprazole (Aripiprazole 15 Mg Tab) 15 mg PO [facility] Last Admin: 05/21/21 23:33 Dose: 15 mg Documented by: Calcium Acetate (Calcium Acetate 667 Mg Tab) 667 mg PO TID-W/MEALS [facility] Last Admin: 05/22/21 12:31 Dose: 667 mg Documented by: Calcium Carbonate/Glycine (Calcium Carbonate 500 Mg Chewable) 1,000 mg PO Q4HR PRN PRN Reason: Dyspepsia Carvedilol (Carvedilol 12.5 Mg Tab) 12.5 mg PO BID [facility] Last Admin: 05/22/21 08:55 Dose: 12.5 mg Documented by: Dicyclomine HCl (Dicyclomine 20 Mg Tab) 20 mg PO QID PRN PRN Reason: GI Upset Last Admin: 05/22/21 09:45 Dose: 20 mg Documented by: Gabapentin (Gabapentin 100 Mg Cap) 100 mg PO [facility] Last Admin: 05/21/21 23:32 Dose: 100 mg Documented by: Hydralazine HCl (Hydralazine Hcl 50 Mg Tab) 100 mg PO TID [facility] Last Admin: 05/22/21 08:55 Dose: 100 mg Documented by: Hydralazine HCl (Hydralazine Hcl 20 Mg/Ml 1 Ml Vial) 10 mg IVP Q4HR PRN PRN Reason: Blood Pressure - High Last Admin: 05/19/21 14:44 Dose: 10 mg Documented by: Piperacillin Sod/Tazobactam (Sod 3.375 gm/ Sodium Chloride) 100 mls @ 25 mls/hr IVPB Q12HR [facility] Last Admin: 05/22/21 09:02 Dose: 25 mls/hr Documented by: Lactated Ringer's (Lactated Ringers) 1,000 mls @ 20 mls/hr IV .Q24H [facility] Last Admin: 05/22/21 04:16 Dose: Not Given Documented by: Insulin Aspart (Insulin Aspart (Novolog) 100 Unit/Ml Vial) 0 unit SQ [facility]; Protocol Last Admin: 05/22/21 12:31 Dose: 5 unit Documented by: Insulin Detemir (Insulin Detemir (Levemir) 100 Unit/Ml Syr) 20 unit SQ DAILY [facility] Last Admin: 05/22/21 08:55 Dose: 20 unit Documented by: Loperamide HCl (Loperamide 2 Mg Cap) 2 mg PO QID PRN PRN Reason: Diarrhea Lorazepam (Lorazepam 0.5 Mg Tab) 0.5 mg PO Q6HR PRN PRN Reason: Anxiety Last Admin: 05/20/21 21:52 Dose: 0.5 mg Documented by: Melatonin (Melatonin 3 Mg Tablet) 3 mg PO HS PRN PRN Reason: Insomnia Last Admin: 05/20/21 21:50 Dose: 3 mg Documented by: Metoclopramide HCl (Metoclopramide 5 Mg Tab) 5 mg PO HS [facility] Last Admin: 05/21/21 23:33 Dose: 5 mg Documented by: Multivitamins (Multivitamins, Thera 1 Each Tab) 1 each PO DAILY [facility] Last Admin: 05/22/21 08:54 Dose: 1 each Documented by: Naloxone HCl (Naloxone 0.4 Mg/Ml 1 Ml Vial) 0.2 mg IV Q2M PRN PRN Reason: Opioid Reversal Ondansetron HCl (Ondansetron 4 Mg/2 Ml Vial) 4 mg IVP Q8HR PRN PRN Reason: Nausea And Vomiting Last Admin: 05/20/21 09:35 Dose: 4 mg Documented by: Pravastatin Sodium (Pravastatin Sodium 40 Mg Tab) 40 mg PO HS [facility] Last Admin: 05/21/21 23:32 Dose: 40 mg Documented by: Sertraline HCl (Sertraline 50 Mg Tab) 50 mg PO DAILY [facility] Last Admin: 05/22/21 08:54 Dose: 50 mg Documented by: Trazodone HCl (Trazodone Hcl 100 Mg Tab) 100 mg PO HS [facility] Last Admin: 05/21/21 23:32 Dose: 100 mg Documented by: Past medical history to include: Asthma, diabetes, GERD, peptic ulcer disease, hypertension, hyperlipidemia, bilateral pleural effusion with right-sided thoracentesis, decortication, card iac tamponade window, diabetes type I since age of 21, on hemodialysis Sunday and Sunday of the fistula in the right lower arm. Minimal bone disease, chronic anemia, hiatal hernia, peptic ulcer disease, peripheral arterial disease, DJD, osteoarthritis of the left foot in 2012, have her take foot ulcers and amputations, right eye retinal detachment, left eye Blindness MRSA infections, ventriculoperitoneal shunt, depression Social history: Lives with his mother. No history of smoking. Alcohol rarely. Did chew tobacco in the past stopped 2016 Physical examination: VITAL SIGNS: 98.7, 71, 16, 136/51, 96% room air GENERAL: Laying in bed, tired EYES: Pupils equal. Conjunctiva pale. NECK: JVD not raised; masses not palpable. HEART: First and second heart sounds are normal; no edema. LUNGS: Respiratory rate increased; fair breath sounds. ABDOMEN: Soft, some tenderness, no guarding rigidity, liver spleen not palpable, no masses palpable. PSYCH: Alert and oriented x3; mood and affect tired EXTREMITIES: Right forearm arm AV fistula . Left upper extremity fistula. Left foot second to fifth toe amputated NEUROLOGICAL: Decreased vision, otherwise cranial nerves grossly intact, pulmonary and sensation grossly intact INVESTIGATIONS, reviewed in the clinical context: May 22: White count 8.9 hemoglobin 12.5 May 21: Potassium 5.3 creatinine 6.39 May 20: White count 6.3 hemoglobin 12 platelets 212 potassium 5.5 BUN 36 creatinine 6.2 bilirubin 0.1 White count 6.3 hemoglobin 12.5 platelets 229 potassium 4.3 BUN 22 creatinine 4.89 bilirubin 0.4 AST 25 ALT 9 EKG tracing personally reviewed by me-normal sinus rhythm Chest x-ray film personally reviewed by me-questionable atelectasis Abdominal ultrasound: Gallbladder: No stones visualized. Wall of the limit of normal. Slightly hydropic. Assessment and plan: -acute cholecystitis. Cholecystectomy on May 20: IV Zosyn. Regular diet -No clinical evidence of pneumonia. Patient has no respiratory symptoms. No fever no chills. -Diabetes mellitus type 1, since age of 21, chronically on insulin Levemir 20 units subcu daily. Follow Accu-Cheks -Intermittent asthma, bronchodilators, -History of loculated right pleural effusion previous pigtail catheter placement and alteplase infusion -GERD Tums when necessary -Hyperlipidemia Pravachol 40 mg daily at bedtime -Essential hypertension with chronic kidney disease Hydralazine 100 mg 3 times a day, Norvasc 10 mg daily, -Chronic kidney disease minimal bone disease -Hiatal hernia -Peripheral arterial disease Pravachol, and baby aspirin -Bilateral poor vision from diabetic retinopathy -Depression Zoloft 50 mg daily, Desyrel 100 mg daily at bedtime -Chronic insomnia for multiple medical problems Melatonin 3 mg daily at bedtime when necessary, trazodone 100 mg daily at bedtime -End-stage kidney disease on hemodialysis Sunday and Sunday Hemodialysis. Consult nephrology. right arm AV fistula is being used. has a maturing left upper extremity fistula Tolerating regular diet. Continue current medications. DC when okay with surgery. Discussed with patient and mother.
[2021-05-22 16:22] LABS: Glucose,Whole Blood 195 mg/dL (75-99)
[2021-05-22] MEDS: HYDROcodone/APAP 5-325MG 1 EACH TAB PO PRN ×2 (16:27→22:37)
[2021-05-22 20:46] LABS: Glucose,Whole Blood 175 mg/dL (75-99)
[2021-05-22] MEDS: traZODone HCL 100 MG TAB PO SCH (22:37)
[2021-05-22] MEDS: MELATONIN 3 MG TABLET PO PRN (22:38)
[2021-05-22] MEDS: PRAVASTATIN SODIUM 40 MG TAB PO SCH (22:38)
[2021-05-22] MEDS: GABAPENTIN 100 MG CAP PO SCH (22:38)
[2021-05-23] MEDS: ARIPiprazole 15 MG TAB PO SCH (00:46)
[2021-05-23] MEDS: METOCLOPRAMIDE 5 MG TAB PO SCH (00:47)
[2021-05-23] MEDS: LACTATED RINGERS 1,000 ML IV SCH (00:48)
[2021-05-23 01:42] LABS: Glucose,Whole Blood 151 mg/dL (75-99)
[2021-05-23 07:04] LABS: Glucose,Whole Blood 191 mg/dL (75-99)
[2021-05-23] MEDS: INSULIN DETEMIR (LEVEMIR) 100 UNIT/ML SYR SQ SCH (07:27)
[2021-05-23] MEDS: INSULIN ASPART (NovoLOG) 100 UNIT/ML VIAL SQ SCH ×3 (07:27→17:12)
[2021-05-23] MEDS: PIPERACILLIN-TAZOBACTAM 3.375 GM in SODIUM CHLORIDE 0.9% 100 ML IVPB SCH (07:31)
[2021-05-23] MEDS: SERTRALINE 50 MG TAB PO SCH (07:43)
[2021-05-23] MEDS: MULTIVITAMINS, THERA 1 EACH TAB PO SCH (07:43)
[2021-05-23] MEDS: amLODIPine 10 MG TAB PO SCH (07:44)
[2021-05-23] MEDS: CALCIUM ACETATE 667 MG TAB PO SCH ×3 (07:44→17:12)
[2021-05-23] MEDS: hydrALAZINE HCL 50 MG TAB PO SCH ×2 (07:44→17:12)
[2021-05-23] MEDS: carvediloL 12.5 MG TAB PO SCH (07:44)
[2021-05-23] MEDS: DICYCLOMINE 20 MG TAB PO PRN (07:47)
[2021-05-23] MEDS: ALBUTEROL NEBULIZED 2.5 MG/3 ML INHALATION SCH ×3 (07:54→16:02)
[2021-05-23 08:57] VITALS: RESP 16
--- NOTE | 2021-05-23 09:43 | P.PN ---
Subjective Patient is seen in follow-up for end-stage renal disease. He is maintained on hemodialysis on Sunday schedule. Resting in bed. Having loose bowel movements. On liquid diet. Vital signs are stable. General: The patient appeared well nourished and normally developed. HEENT: Head exam is unremarkable. LUNGS: Breath sounds decreased. HEART: Rate and Rhythm are regular. ABDOMEN: Soft, no distention. EXTREMITITES: No edema. Objective - Vital Signs Vital signs: Vital Signs Temp 97.6 F 05/23/21 08:57 Pulse 71 05/23/21 08:57 Resp 16 05/23/21 08:57 BP 150/78 05/23/21 08:57 Pulse Ox 94 L 05/23/21 08:57 Intake & Output 05/22/21 05/23/21 05/23/21 18:59 06:59 18:59 Intake Total 1040 1280 Output Total 0 Balance 1040 1280 Intake: Oral 1040 1280 Output: Urine 0 Other: # Voids 0 1 # Bowel Movements 4 2 - Labs CBC & Chem 7: 05/22/21 14:15 05/22/21 14:15 Labs: Abnormal Lab Results - Last 24 Hours (Table) 05/22/21 05/22/21 05/22/21 Range/Units 11:36 14:15 14:15 RBC 3.93 L (4.30-5.90) m/uL Hgb 12.5 L (13.0-17.5) gm/dL Hct 38.0 L (39.0-53.0) % Lymphocytes # 0.6 L (1.0-4.8) k/uL Sodium 132 L (137-145) mmol/L Chloride 94 L (98-107) mmol/L BUN 58 H (9-20) mg/dL Creatinine 8.02 H* (0.66-1.25) mg/dL Glucose 257 H (74-99) mg/dL POC Glucose (mg/dL) 294 H (75-99) mg/dL Calcium 7.8 L (8.4-10.2) mg/dL Total Protein 6.0 L (6.3-8.2) g/dL 05/22/21 05/22/21 05/23/21 Range/Units 16:21 20:31 01:29 RBC (4.30-5.90) m/uL Hgb (13.0-17.5) gm/dL Hct (39.0-53.0) % Lymphocytes # (1.0-4.8) k/uL Sodium (137-145) mmol/L Chloride (98-107) mmol/L BUN (9-20) mg/dL Creatinine (0.66-1.25) mg/dL Glucose (74-99) mg/dL POC Glucose (mg/dL) 195 H 175 H 151 H (75-99) mg/dL Calcium (8.4-10.2) mg/dL Total Protein (6.3-8.2) g/dL 05/23/21 Range/Units 07:03 RBC (4.30-5.90) m/uL Hgb (13.0-17.5) gm/dL Hct (39.0-53.0) % Lymphocytes # (1.0-4.8) k/uL Sodium (137-145) mmol/L Chloride (98-107) mmol/L BUN (9-20) mg/dL Creatinine (0.66-1.25) mg/dL Glucose (74-99) mg/dL POC Glucose (mg/dL) 191 H (75-99) mg/dL Calcium (8.4-10.2) mg/dL Total Protein (6.3-8.2) g/dL Microbiology - Last 24 Hours (Table) 05/19/21 07:33 Blood Culture - Preliminary Blood No Growth after 72 hours 05/19/21 07:33 Blood Culture - Preliminary Blood No Growth after 72 hours Assessment and Plan Plan: Assessment: 1. End-stage renal disease maintained on hemodialysis on Sunday schedule. 2. Acute cholecystitis status post cholecystectomy on May 20. On antibiotics as well. 3. Hypertension with chronic kidney disease. Stable this morning. 4. Diabetes mellitus. 5. Chronic kidney disease mineral bone disease maintained on PhosLo. Plan: Hemodialysis today.
[2021-05-23] MEDS ORDERED: PSYLLIUM HUSK 100% 6 GM PACKET PO SCH (11:15)
[2021-05-23 11:35] LABS: Glucose,Whole Blood 161 mg/dL (75-99)
[2021-05-23 12:24] LABS: ALT 7 U/L (4-49); AST 36 U/L (17-59); African American GFR (CKD) 8 (>60 ml/min/1.73 sqM); Albumin 3.7 g/dL (3.5-5.0); Albumin/Globulin Ratio 1.6; Alkaline Phosphatase 84 U/L (38-126); Anion Gap 15 mmol/L; Blood Urea Nitrogen 62 mg/dL (9-20); Calcium 8.1 mg/dL (8.4-10.2); Carbon Dioxide 21 mmol/L (22-30); Chloride 95 mmol/L (98-107); Globulin 2.3 g/dL; Glucose 172 mg/dL (74-99); Non-African American GFR(CKD) 7 (>60 ml/min/1.73 sqM); Potassium 4.5 mmol/L (3.5-5.1); Sodium 131 mmol/L (137-145); Total Bilirubin 0.5 mg/dL (0.2-1.3)
[2021-05-23] MEDS: HYDROcodone/APAP 5-325MG 1 EACH TAB PO PRN (14:08)
[2021-05-23 14:58] VITALS: BP 149/75; PULSE 65; TEMP 97.5
--- NOTE | 2021-05-23 15:21 | P.DS ---
Providers Date of admission: 05/18/21 22:54 Expected date of discharge: 05/23/21 Attending physician: Kristopher Stone Consults: 05/18/21 22:55 Consult Physician Routine Consulting Provider: Yvonne Best Consult Reason/Comments: Pneumonia. Left pleural effusion. Do you want consulting provider notified?: Yes Consult Physician Routine Consulting Provider: Jojo Charles Consult Reason/Comments: Dialysis patient Do you want consulting provider notified?: Yes 05/19/21 01:37 Consult Physician Routine Consulting Provider: Khushi Funez Consult Reason/Comments: Right sided abdominal pain Do you want consulting provider notified?: Yes Primary care physician: [facility] Course: Chief Complaint: Abdominal pain History of presenting complaint: This is a 41-year-old patient follows with Dr. Trevino. Extensive medical history. Chronic stable medical conditions include asthma, diabetes, , hypertension, hyperlipidemia, history of bilateral pleural effusions, cardiac tamponade window, end-stage kidney disease on hemodialysis Sunday and Sunday , fistula in the right forearm, minimal bone disease, chronic anemia, peptic ulcer disease, peripheral arterial disease bilateral poor vision. Also has a fistula in the left arm it is maturing Patient presented to [facility] yesterday abdominal pain starting of the previous day. More so central. No nausea vomiting. No change in bowel movement pattern. Denies any fever and chills. Patient don't have any cough shortness of breath nausea vomiting. A computed tomography scan of the chest abdomen pelvis done that was unremarkable did show some infiltrate in the left side. Has patient was sent down here. Patient still having abdominal pain. Admitted with acute cholecystitis. Started on IV Zosyn. May 20: Sitting up in bed. Getting hemodialysis. Mother is visiting. Decreased abdominal pain. Due for surgery this afternoon. No nausea vomiting. No fever May 21: Underwent cholecystectomy yesterday. Having abdominal pain. Did not eat any breakfast. Wants liquids. Liquid meal ordered. Tired. May 22: Doing better today. Having abdominal pain. Did eat all his breakfast. Sent to sit up in a chair and ambulate. Follow with surgery May 23: Doing much better. Abdominal pain much improved. Patient ate all his regular lunch. Has some diarrhea which is his baseline. Is taking Imodium at home. Metamucil 1 dose added to thicken up the bowels discussed with patient. Cleared by surgery for discharge. Hemodialysis today Consultation: Dr. Aguirre from general surgery Nephrology Past medical history to include: Asthma, diabetes, GERD, peptic ulcer disease, hypertension, hyperlipidemia, bilateral pleural effusion with right-sided thoracentesis, decortication, cardiac tamponade window, diabetes type I since age of 21, on hemodialysis Sunday and Sunday of the fistula in the right lower arm. Minimal bone disease, chronic anemia, hiatal hernia, peptic ulcer disease, peripheral arterial disease, DJD, osteoarthritis of the left foot in 2012, have her take foot ulcers and amputations, right eye retinal detachment, left eye Blindness MRSA infections, ventriculoperitoneal shunt, depression Social history: Lives with his mother. No history of smoking. Alcohol rarely. Did chew tobacco in the past stopped 2016 Physical examination: VITAL SIGNS: 97.5, 65, 16, 1 49,075, 95% room air GENERAL: Eating up in bed comfortable EYES: Pupils equal. Conjunctiva pale. NECK: JVD not raised; masses not palpable. HEART: First and second heart sounds are normal; no edema. LUNGS: Respiratory rate increased; fair breath sounds. ABDOMEN: Soft, minimal tenderness, no guarding rigidity, liver spleen not palpable, no masses palpable. PSYCH: Alert and oriented x3; mood and affect tired EXTREMITIES: Right forearm arm AV fistula . Left upper extremity fistula. Left foot second to fifth toe amputated NEUROLOGICAL: Decreased vision, otherwise cranial nerves grossly intact, pulmonary and sensation grossly intact INVESTIGATIONS, reviewed in the clinical context: May 23: Potassium 4.5 creatinine 8.89 May 22: White count 8.9 hemoglobin 12.5 May 21: Potassium 5.3 creatinine 6.39 May 20: White count 6.3 hemoglobin 12 platelets 212 potassium 5.5 BUN 36 creatinine 6.2 bilirubin 0.1 White count 6.3 hemoglobin 12.5 platelets 229 potassium 4.3 BUN 22 creatinine 4.89 bilirubin 0.4 AST 25 ALT 9 EKG tracing personally reviewed by me-normal sinus rhythm Chest x-ray film personally reviewed by me-questionable atelectasis Abdominal ultrasound: Gallbladder: No stones visualized. Wall of the limit of normal. Slightly hydropic. Assessment and plan: -acute cholecystitis. Cholecystectomy on May 20: IV Zosyn. Regular diet tolerating. DC home on Augmentin -No clinical evidence of pneumonia. Patient has no respiratory symptoms. No fever no chills. -Diabetes mellitus type 1, since age of 21, chronically on insulin Levemir 20 units subcu daily. Follow Accu-Cheks -Intermittent asthma, bronchodilators, -History of loculated right pleural effusion previous pigtail catheter placement and alteplase infusion -GERD Tums when necessary -Hyperlipidemia Pravachol 40 mg daily at bedtime -Essential hypertension with chronic kidney disease Hydralazine 100 mg 3 times a day, Norvasc 10 mg daily, -Chronic kidney disease minimal bone disease -Hiatal hernia -Peripheral arterial disease Pravachol, and baby aspirin -Bilateral poor vision from diabetic retinopathy -Depression Zoloft 50 mg daily, Desyrel 100 mg daily at bedtime -Chronic insomnia for multiple medical problems Melatonin 3 mg daily at bedtime when necessary, trazodone 100 mg daily at bedtime -End-stage kidney disease on hemodialysis Sunday and Sunday Hemodialysis. Consult nephrology. right arm AV fistula is being used. has a maturing left upper extremity fistula Disposition: Home Plan - Discharge Summary Discharge Rx Participant: Yes New Discharge Prescriptions: New Simethicone [Gas-X] 125 mg PO AC-TID PRN #20 cap PRN Reason: Pain Psyllium Husk 100% [Metamucil Packet] 6 gm PO DAILY #30 packet Acetaminophen Tab [Tylenol Tab] 500 mg PO Q6H PRN #30 tablet PRN Reason: Pain Calcium Acetate [PhosLo] 667 mg PO TID-W/MEALS #90 tab Amoxic-Pot Clav 500-125 mg [Augmentin 500-125 mg] 1 tab PO Q12HR #10 tab Continue Pravastatin Sodium [Pravachol] 40 mg PO HS amLODIPine [Norvasc] 10 mg PO DAILY Dicyclomine [Bentyl] 20 mg PO QID PRN PRN Reason: Gi Upset Glucagon Emergency Kit 1 mg IM ONCE PRN PRN Reason: HYPOGLYCEMIA EVENT Sertraline [Zoloft] 50 mg PO DAILY hydrALAZINE HCL [Apresoline] 100 mg PO TID HYDROcodone/APAP 5-325MG [Storden 5-325] 1 tab PO BID PRN PRN Reason: Pain ARIPiprazole [Abilify] 15 mg PO HS Loratadine [Alavert] 10 mg PO DAILY PRN PRN Reason: Allergy Symptoms Gabapentin [Neurontin] 100 mg PO HS cap Metoclopramide HCl [Reglan] 5 mg PO HS Insulin Degludec [Tresiba] 20 unit SQ DAILY Carvedilol [Coreg] 12.5 mg PO BID Albuterol Inhaler [Ventolin Hfa Inhaler] 1 puff INHALATION RT-QID PRN #1 puff PRN Reason: Wheezing tiZANidine HCL 2 mg PO Q8H PRN PRN Reason: Muscle Pain traZODone HCL 100 mg PO HS Multivitamins, Thera [Multivitamin (formulary)] 1 tab PO DAILY Loperamide HCl [Loperamide] 2 mg PO QID PRN PRN Reason: Diarrhea Albuterol Nebulized [Ventolin Nebulized] 2.5 mg INHALATION RT-QID #0 ml Discharge Medication List Pravastatin Sodium [Pravachol] 40 mg PO HS 12/26/15 [History] amLODIPine [Norvasc] 10 mg PO DAILY 11/14/18 [History] Dicyclomine [Bentyl] 20 mg PO QID PRN 02/28/19 [History] Glucagon Emergency Kit 1 mg IM ONCE PRN 02/28/19 [History] ARIPiprazole [Abilify] 15 mg PO HS 04/19/20 [History] HYDROcodone/APAP 5-325MG [Storden 5-325] 1 tab PO BID PRN 04/19/20 [History] Sertraline [Zoloft] 50 mg PO DAILY 04/19/20 [History] hydrALAZINE HCL [Apresoline] 100 mg PO TID 04/19/20 [History] Loratadine [Alavert] 10 mg PO DAILY PRN 05/10/20 [History] Gabapentin [Neurontin] 100 mg PO HS cap 05/11/20 [Rx] Metoclopramide HCl [Reglan] 5 mg PO HS 10/04/20 [History] Insulin Degludec [Tresiba] 20 unit SQ DAILY 10/12/20 [History] Carvedilol [Coreg] 12.5 mg PO BID 03/22/21 [History] Loperamide HCl [Loperamide] 2 mg PO QID PRN 03/22/21 [History] Multivitamins, Thera [Multivitamin (formulary)] 1 tab PO DAILY 03/22/21 [History] Albuterol Inhaler [Ventolin Hfa Inhaler] 1 puff INHALATION RT-QID PRN #1 puff 03/25/21 [Rx] Albuterol Nebulized [Ventolin Nebulized] 2.5 mg INHALATION RT-QID #0 ml 03/25/21 [Rx] tiZANidine HCL 2 mg PO Q8H PRN 05/18/21 [History] traZODone HCL 100 mg PO HS 05/18/21 [History] Acetaminophen Tab [Tylenol Tab] 500 mg PO Q6H PRN #30 tablet 05/20/21 [Rx] Simethicone [Gas-X] 125 mg PO AC-TID PRN #20 cap 05/20/21 [Rx] Amoxic-Pot Clav 500-125 mg [Augmentin 500-125 mg] 1 tab PO Q12HR #10 tab 05/22/21 [Rx] Calcium Acetate [PhosLo] 667 mg PO TID-W/MEALS #90 tab 05/22/21 [Rx] Psyllium Husk 100% [Metamucil Packet] 6 gm PO DAILY #30 packet 05/23/21 [Rx] Follow up Appointment(s)/Referral(s): Chad Trevino MD [Primary Care Provider] - 05/30/21 12:00 pm Khushi Funez MD [STAFF PHYSICIAN] - 06/02/21 9:30 am Patient Instructions/Handouts: *Surgery [facility] - Managing Your Pain After Surgery Without Opioids, Low Fat Diet (DC), Laparoscopic Cholecystectomy (DC) Activity/Diet/Wound Care/Special Instructions: Recommend low-fat diet for the next 2 days. No lifting over 10 pounds in 2 weeks until Jun 03. May shower. No bath tub soaks for two weeks until Jun 03. Diet as tolerated. Use Tylenol, simethicone scheduled for the next 24-48 hours for best pain relief. Use ice along incisions for today to prevent swelling. dc if ok with surgery
[2021-05-23 16:31] LABS: Basophils # (A) 0.06 X 10*3/uL (0.00-0.10); Basophils % (A) 0.7 %; Eosinophils # (A) 0.29 X 10*3/uL (0.04-0.35); Eosinophils % (A) 3.6 %; HCT 38.3 % (39.6-50.0); HGB 11.8 g/dL (13.0-17.0); Lymphocytes # (A) 0.52 X 10*3/uL (0.90-5.00); Lymphocytes % (A) 6.4 %; MCH 29.4 pg (27.0-32.0); MCHC 30.8 g/dL (32.0-37.0); MCV 95.5 fL (80.0-97.0); Mean Platelet Volume 11.1 fL (9.5-12.2); Monocytes % (A) 8.7 %; Neutrophils # (A) 6.45 X 10*3/uL (1.80-7.70); Platelet Count 162 X 10*3/uL (140-440); RBC 4.01 X 10*6/uL (4.40-5.60); WBC 8.07 X 10*3/uL (4.50-10.00)
[2021-05-23 16:43] LABS: Glucose,Whole Blood 150 mg/dL (75-99)
--- NOTE | 2021-05-23 19:50 | P.PN ---
Subjective Progress Note Date: 05/23/21 CHIEF COMPLAINT: Cholecystitis HISTORY OF PRESENT ILLNESS: The patient is a 41-year-old male with end-stage kidney disease who is status post cholecystectomy. He reports his pre-existing right upper quadrant abdominal pain is resolved. He is tolerating diet. He is eager to go home. REVIEW OF ORGAN SYSTEMS: No fevers or chills. No nausea and vomiting. No chest pain. PHYSICAL EXAM: VITALS: Reviewed CONSTITUTIONAL: Well developed and in no acute distress. EYES: Conjuctivae without sclera icterus. Extraocular movements grossly intact. HEAD, EARS, NOSE, THROAT: Moist buccal mucosa. Head is atraumatic, normocephalic. Hears conversational speech. No nasal drainage. RESPIRATORY: Non-labored respirations and equal bilateral excursions. No gross wheezes. CARDIOVASCULAR: Regular rate and rhythm. ABDOMEN: Tender right upper quadrant. No gross peritonitis. MUSCULOSKELETAL: Nail and fingers with good capillary refill. SKIN: Warm and well perfused with good skin turgor. NEUROLOGIC: Cranial nerves II through XII grossly intact. PSYCH: Appropriate affect. Alert and oriented to person, place and time. Displays appropriate insight. CLINCAL LABS: Reviewed. WBC normal. Hemoglobin 11.8. LFTs within normal limits. ASSESSMENT: 1. Right upper quadrant abdominal pain with cholecystitis 2. End-stage renal disease due to diabetes type 1 insulin-dependent 3. Hypertensive heart disease with pulmonary hypertension PLAN: 1. Patient clinically stable. Stable from a surgical standpoint for discharge Objective - Vital Signs Vital signs: Vital Signs Temp 97.5 F L 05/23/21 13:00 Pulse 65 05/23/21 13:00 Resp 16 05/23/21 13:00 BP 149/75 05/23/21 13:00 Pulse Ox 95 05/23/21 13:00 Intake & Output 05/23/21 05/23/21 05/24/21 06:59 18:59 06:59 Intake Total 1280 Output Total 0 Balance 1280 Intake: Oral 1280 Output: Urine 0 Other: # Voids 1 # Bowel Movements 2 6 - Labs CBC & Chem 7: 05/23/21 11:51 05/23/21 11:51 Labs: Abnormal Lab Results - Last 24 Hours (Table) 05/22/21 05/22/21 05/23/21 Range/Units 14:15 20:31 01:29 RBC (4.40-5.60) X 10*6/uL Hgb (13.0-17.0) g/dL Hct (39.6-50.0) % MCHC (32.0-37.0) g/dL RDW (11.5-14.5) % Immature Gran # (0.00-0.04) X 10*3/uL Lymphocytes # (0.90-5.00) X 10*3/uL Sodium (137-145) mmol/L Chloride (98-107) mmol/L Carbon Dioxide (22-30) mmol/L BUN (9-20) mg/dL Creatinine 8.02 H* (0.66-1.25) mg/dL Glucose (74-99) mg/dL POC Glucose (mg/dL) 175 H 151 H (75-99) mg/dL Calcium (8.4-10.2) mg/dL Total Protein (6.3-8.2) g/dL 05/23/21 05/23/21 05/23/21 Range/Units 07:03 11:34 11:51 RBC 4.01 L (4.40-5.60) X 10*6/uL Hgb 11.8 L (13.0-17.0) g/dL Hct 38.3 L (39.6-50.0) % MCHC 30.8 L (32.0-37.0) g/dL RDW 15.0 H (11.5-14.5) % Immature Gran # 0.05 H (0.00-0.04) X 10*3/uL Lymphocytes # 0.52 L (0.90-5.00) X 10*3/uL Sodium (137-145) mmol/L Chloride (98-107) mmol/L Carbon Dioxide (22-30) mmol/L BUN (9-20) mg/dL Creatinine (0.66-1.25) mg/dL Glucose (74-99) mg/dL POC Glucose (mg/dL) 191 H 161 H (75-99) mg/dL Calcium (8.4-10.2) mg/dL Total Protein (6.3-8.2) g/dL 05/23/21 05/23/21 Range/Units 11:51 16:41 RBC (4.40-5.60) X 10*6/uL Hgb (13.0-17.0) g/dL Hct (39.6-50.0) % MCHC (32.0-37.0) g/dL RDW (11.5-14.5) % Immature Gran # (0.00-0.04) X 10*3/uL Lymphocytes # (0.90-5.00) X 10*3/uL Sodium 131 L (137-145) mmol/L Chloride 95 L (98-107) mmol/L Carbon Dioxide 21 L (22-30) mmol/L BUN 62 H (9-20) mg/dL Creatinine 8.89 H* (0.66-1.25) mg/dL Glucose 172 H (74-99) mg/dL POC Glucose (mg/dL) 150 H (75-99) mg/dL Calcium 8.1 L (8.4-10.2) mg/dL Total Protein 6.0 L (6.3-8.2) g/dL Microbiology - Last 24 Hours (Table) 05/19/21 07:33 Blood Culture - Preliminary Blood No Growth after 96 hours 05/19/21 07:33 Blood Culture - Preliminary Blood No Growth after 96 hours Assessment and Plan (1) Acute hydrops of gallbladder Status: Acute Code(s): K82.1 - HYDROPS OF GALLBLADDER SNOMED Code(s): 04426419 (2) Cholecystitis Status: Acute Code(s): K81.9 - CHOLECYSTITIS, UNSPECIFIED SNOMED Code(s): 98813761 (3) Hypertensive heart disease Status: Acute Code(s): I11.9 - HYPERTENSIVE HEART DISEASE WITHOUT HEART FAILURE SNOMED Code(s): 67934204 (4) Diabetes type 1, uncontrolled Status: Acute Code(s): E10.65 - TYPE 1 DIABETES MELLITUS WITH HYPERGLYCEMIA SNOMED Code(s): 74886905 (5) ESRD (end stage renal disease) on dialysis Status: Acute Code(s): N18.6 - END STAGE RENAL DISEASE; Z99.2 - DEPENDENCE ON RENAL DIALYSIS SNOMED Code(s): 424655539 (6) Poorly controlled diabetes mellitus Status: Acute Code(s): E11.65 - TYPE 2 DIABETES MELLITUS WITH HYPERGLYCEMIA SNOMED Code(s): 486778297
== END 2021-05-23 17:32 | disposition home or self-care (01) | DRG 417 ==
LOC: EC 21:55 → 4SSUR 22:54
PROVIDERS: ADMIT Hospitalist; ATTEND Hospitalist
PROC: 8E0W4CZ Robotic Assisted Procedure of Trunk Region, Percutaneous Endoscopic Approach (ICD-10-PCS; 2021-05-20)
PROC: 0FT44ZZ Resection of Gallbladder, Percutaneous Endoscopic Approach (ICD-10-PCS; principal; 2021-05-20 07:30)
DX: K81.2 Acute cholecystitis with chronic cholecystitis (principal); N18.6 End stage renal disease; K27.4 Chronic or unspecified peptic ulcer, site unspecified, with hemorrhage; I13.11 Hypertensive heart and chronic kidney disease without heart failure, with stage 5 chronic kidney disease, or end stage renal disease; I43 Cardiomyopathy in diseases classified elsewhere; K82.1 Hydrops of gallbladder; I31.3 Pericardial effusion (noninflammatory); M86.9 Osteomyelitis, unspecified; E10.319 Type 1 diabetes mellitus with unspecified diabetic retinopathy without macular edema; E10.36 Type 1 diabetes mellitus with diabetic cataract; E10.40 Type 1 diabetes mellitus with diabetic neuropathy, unspecified; E10.51 Type 1 diabetes mellitus with diabetic peripheral angiopathy without gangrene; E10.65 Type 1 diabetes mellitus with hyperglycemia; E78.5 Hyperlipidemia, unspecified; F32.9 Major depressive disorder, single episode, unspecified; F51.04 Psychophysiologic insomnia; H18.6 Keratoconus; I07.1 Rheumatic tricuspid insufficiency; M89.9 Disorder of bone, unspecified; K21.9 Gastro-esophageal reflux disease without esophagitis; K44.9 Diaphragmatic hernia without obstruction or gangrene; J45.20 Mild intermittent asthma, uncomplicated; I27.22 Pulmonary hypertension due to left heart disease; E10.22 Type 1 diabetes mellitus with diabetic chronic kidney disease; E87.70 Fluid overload, unspecified; E11.621 Type 2 diabetes mellitus with foot ulcer; M54.5 Low back pain; D63.1 Anemia in chronic kidney disease; M89.8X9 Other specified disorders of bone, unspecified site; Z99.2 Dependence on renal dialysis; Z98.2 Presence of cerebrospinal fluid drainage device; Z87.891 Personal history of nicotine dependence; Z83.3 Family history of diabetes mellitus; Z82.49 Family history of ischemic heart disease and other diseases of the circulatory system; Z82.3 Family history of stroke; Z79.899 Other long term (current) drug therapy; Z79.4 Long term (current) use of insulin; L97.509 Non-pressure chronic ulcer of other part of unspecified foot with unspecified severity
CPT/HCPCS: 71045; 76705; 80048; 80053; 82150; 83605; 83690; 84100; 84145; 85025; 87040; 88304; 90935; 94640; 94760

== ENCOUNTER 2021-05-27 11:08 | Inpatient (IN) | payer MEDICARE, OTHER ==
[2021-05-27 11:29] LABS: Basophils % (A) 0 %; Eosinophils # (A) 0.2 k/uL (0-0.7); Eosinophils % (A) 2 %; HCT 33.8 % (39.0-53.0); HGB 10.7 gm/dL (13.0-17.5); Hypochromasia Slight; Lymphocytes # (A) 0.3 k/uL (1.0-4.8); Lymphocytes % (A) 5 %; MCH 31.2 pg (25.0-35.0); MCHC 31.7 g/dL (31.0-37.0); MCV 98.4 fL (80.0-100.0); Mean Platelet Volume 9.2; Monocytes # (A) 0.1 k/uL (0-1.0); Monocytes % (A) 1 %; Neutrophils # (A) 6.4 k/uL (1.3-7.7); Neutrophils % (A) 91 %; Platelet Count 150 k/uL (150-450); RBC 3.43 m/uL (4.30-5.90); RDW 14.9 % (11.5-15.5)
[2021-05-27] MEDS ORDERED: NALOXONE 0.4 MG/ML 1 ML VIAL IV PRN (11:29)
[2021-05-27] MEDS ORDERED: MORPHINE SULFATE 2 MG/ML SYRINGE IV PRN (11:29)
--- NOTE | 2021-05-27 11:35 | ED ---
General Adult HPI - General Chief complaint: Cardiac Arrest/CPR Stated complaint: rosc Time Seen by Provider: 05/27/21 11:15 Source: EMS, RN notes reviewed, old records reviewed Mode of arrival: EMS Limitations: language barrier, altered mental status, physical limitation - History of Present Illness Initial comments: 41-year-old male presents from outside hospital after cardiac arrest with return of spontaneous circulation. Patient had been seen at [facility] after having a cardiac arrest while at dialysis. Last seen at 805, patient was normal at this time. At some time he had arrested, was found by staff and was resuscitated via ACLS protocol. His approximate downtime was somewhere between 30 and 60 minutes. Upon arrival to [facility] patient did have return of spontaneous circulation. His airway was exchanged in the emergency department. Central venous access was obtained. The patient had received a total of 3 rounds of epinephrine and 1 calcium. Laboratory testing was performed. Ultimately patient was transported to this institution by life flight. He did not require pressors or sedation during transport. He did not have spontaneous respirations. - Related Data Home Medications Medication Instructions Recorded Confirmed Pravastatin Sodium [Pravachol] 40 mg PO HS 12/26/15 05/27/21 amLODIPine [Norvasc] 10 mg PO DAILY 11/14/18 05/27/21 Dicyclomine [Bentyl] 20 mg PO QID PRN 02/28/19 05/27/21 Glucagon Emergency Kit 1 mg IM ONCE PRN 02/28/19 05/27/21 ARIPiprazole [Abilify] 15 mg PO HS 04/19/20 05/27/21 HYDROcodone/APAP 5-325MG [[place] 1 tab PO BID PRN 04/19/20 05/27/21 5-325] Sertraline [Zoloft] 50 mg PO DAILY 04/19/20 05/27/21 hydrALAZINE HCL [Apresoline] 100 mg PO TID 04/19/20 05/27/21 Loratadine [Alavert] 10 mg PO DAILY PRN 05/10/20 05/27/21 Metoclopramide HCl [Reglan] 5 mg PO HS 10/04/20 05/27/21 Insulin Degludec [Tresiba] 20 unit SQ DAILY 10/12/20 05/27/21 Carvedilol [Coreg] 12.5 mg PO BID 03/22/21 05/27/21 Loperamide HCl [Loperamide] 2 mg PO QID PRN 03/22/21 05/27/21 Multivitamins, Thera [Multivitamin 1 tab PO DAILY 03/22/21 05/27/21 (formulary)] tiZANidine HCL 2 mg PO Q8H PRN 05/18/21 05/27/21 traZODone HCL 100 mg PO HS 05/18/21 05/27/21 Previous Rx's Medication Instructions Recorded Gabapentin [Neurontin] 100 mg PO HS cap 05/11/20 Albuterol Inhaler [Ventolin Hfa 1 puff INHALATION RT-QID PRN #1 03/25/21 Inhaler] puff Albuterol Nebulized [Ventolin 2.5 mg INHALATION RT-QID #0 ml 03/25/21 Nebulized] Acetaminophen Tab [Tylenol Tab] 500 mg PO Q6H PRN #30 tablet 05/20/21 Simethicone [Gas-X] 125 mg PO AC-TID PRN #20 cap 05/20/21 Amoxic-Pot Clav 500-125 mg 1 tab PO Q12HR #10 tab 05/22/21 [Augmentin 500-125 mg] Calcium Acetate [PhosLo] 667 mg PO TID-W/MEALS #90 tab 05/22/21 Psyllium Husk 100% [Metamucil 6 gm PO DAILY #30 packet 05/23/21 Packet] Allergies Allergy/AdvReac Type Severity Reaction Status Date / Time lisinopril Allergy Unknown Verified 05/27/21 12:10 atorvastatin calcium AdvReac Nausea & Verified 05/27/21 12:10 [From Lipitor] Vomiting/muscle weakness losartan potassium AdvReac Nausea & Verified 05/27/21 12:10 [From Cozaar] Vomiting/hypotension tramadol AdvReac drowsiness Verified 05/27/21 12:10 Review of Systems ROS Statement: Those systems with pertinent positive or pertinent negative responses have been documented in the HPI. ROS Other: All systems not noted in ROS Statement are negative. Past Medical History Past Medical History: Asthma, Diabetes Mellitus, Dialysis, Eye Disorder, GERD/Reflux, GI Bleed, Hyperlipidemia, Hypertension, Pneumonia, Renal Disease, Vascular Disorder Additional Past Medical History / Comment(s): Bilateral pleural effusions with R side worse-bilateral thoracentisis/ R pleural pigtail cath/R side alteplase pleural instillation/decortication/cryoablation, cardiac tamponade with window, IDDM type I, diabetic since he was age 21, DKA, ESRD with hemodialysis on M/W/F, fistula right lower arm, mineral bone disease, volume overload, chronic anemia, hiatal hernia, previous history of GI bleed secondary to peptic ulcer disease, peripheral vascular disease, low back pain/DDD, osteomyelitis L foot in 2012, diabetic foot ulcers and amputations, R eye retinal detachment/surgery-vision poor, L eye cataract/blindness, recent diarrhea History of Any Multi-Drug Resistant Organisms: MRSA Date of last positivie culture/infection: 12/20/11 MDRO Source:: Left Foot Past Surgical History: Cholecystectomy, Ventriculoperitoneal Shunt Additional Past Surgical History / Comment(s): A/V fistula R lower arm, renal needle bx, 2008 left great toe amp and 2013 2nd to 5th left foot toes amputated, L foot I&D, right chest mediport x2 with removal in 2010 and 2012. right eye retina reattachment sx 03/2015. EGD/colonoscopy, pericardial window for cardiac tampanode, bilateral thoracentesis, R pleural pigtail insertion/alteplase pleural instillation/thoracotomy with decortication and cryoablation, EGD, colonoscopy. Past Anesthesia/Blood Transfusion Reactions: No Reported Reaction Additional Past Anesthesia/Blood Transfusion Reaction / Comment(s): Pt states he has received blood in past without reaction. Past Psychological History: Depression Smoking Status: Never smoker Past Alcohol Use History: None Reported Past Drug Use History: None Reported - Past Family History Mother Family Medical History: Hypertension Father Family Medical History: CVA/TIA, Diabetes Mellitus, Hypertension Additional Family Medical History / Comment(s): Father is at the age of 53yrs from a CVA. General Exam Limitations: language barrier, altered mental status, physical limitation General appearance: obtunded, other (Nonresponsive, no gag reflex) Head exam: Present: atraumatic, normocephalic Eye exam: Absent: PERRL (Both pupils are nonreactive, right pupil appears postsurgical, proximally 6 mm on the left pupil is 4 mm. No corneal reflex) Respiratory exam: Present: other (Equal breath sounds bilaterally with ventilator, no spontaneous respirations.) Cardiovascular Exam: Present: regular rate, normal rhythm GI/Abdominal exam: Present: soft. Absent: distended, tenderness, guarding Extremities exam: Absent: pedal edema Neurological exam: Present: other (Patient does not withdrawal to pain, no spontaneous movements. Patient is not sedated) Skin exam: Present: warm, dry Course Vital Signs 05/27/21 05/27/21 05/27/21 11:13 11:19 12:13 Temperature 97.4 F L Pulse Rate 63 69 Respiratory 14 14 14 Rate Blood Pressure 127/82 112/71 O2 Sat by Pulse 100 100 Oximetry EKG Findings - EKG Comments: EKG Findings:: EKG: Normal sinus rhythm, left atrial enlargement, incomplete left bundle branch block, mildly prolonged QT. Rate of 63, NC interval 176, QRS duration 114, QTC 509, no ST segment elevation. Medical Decision Making - Medical Decision Making 41-year-old male status post cardiac arrest with downtime between 30 and 60 minutes. Patient has nonreactive pupils, dilated on the right compared to the left however this does appear postsurgical. Head CT pending at this time. Repeat chest x-ray pending, repeat laboratory testing pending. Patient has no gag, no corneal reflex, no pupillary reflex, no spontaneous movements. His blood pressure is stable upon arrival without pressors. Case discussed with Dr. Stone who will admit. Case discussed with Dr. Tarango who will provide ICU management. - Lab Data Result diagrams: 05/27/21 11:21 05/27/21 11:21 Lab Results 05/27/21 05/27/21 05/27/21 Range/Units 11:21 11:21 11:21 WBC 7.0 (3.8-10.6) k/uL RBC 3.43 L (4.30-5.90) m/uL Hgb 10.7 L (13.0-17.5) gm/dL Hct 33.8 L (39.0-53.0) % MCV 98.4 (80.0-100.0) fL MCH 31.2 (25.0-35.0) pg MCHC 31.7 (31.0-37.0) g/dL RDW 14.9 (11.5-15.5) % Plt Count 150 (150-450) k/uL MPV 9.2 Neutrophils % 91 % Lymphocytes % 5 % Monocytes % 1 % Eosinophils % 2 % Basophils % 0 % Neutrophils # 6.4 (1.3-7.7) k/uL Lymphocytes # 0.3 L (1.0-4.8) k/uL Monocytes # 0.1 (0-1.0) k/uL Eosinophils # 0.2 (0-0.7) k/uL Basophils # 0.0 (0-0.2) k/uL Hypochromasia Slight PT 10.8 (9.0-12.0) sec INR 1.0 (<1.2) APTT 27.4 (22.0-30.0) sec Sodium 133 L (137-145) mmol/L Potassium 4.2 (3.5-5.1) mmol/L Chloride 100 (98-107) mmol/L Carbon Dioxide 18 L (22-30) mmol/L Anion Gap 15 mmol/L BUN 34 H (9-20) mg/dL Creatinine 6.60 H (0.66-1.25) mg/dL Est GFR (CKD-EPI)AfAm 11 (>60 ml/min/1.73 sqM) Est GFR (CKD-EPI)NonAf 9 (>60 ml/min/1.73 sqM) Glucose 407 H (74-99) mg/dL Calcium 7.9 L (8.4-10.2) mg/dL Magnesium 2.4 H (1.6-2.3) mg/dL Total Bilirubin 0.6 (0.2-1.3) mg/dL AST 79 H (17-59) U/L ALT 19 (4-49) U/L Alkaline Phosphatase 139 H (38-126) U/L Total Protein 5.1 L (6.3-8.2) g/dL Albumin 3.0 L (3.5-5.0) g/dL Coronavirus (PCR) (Not Detectd) 05/27/21 Range/Units 11:21 WBC (3.8-10.6) k/uL RBC (4.30-5.90) m/uL Hgb (13.0-17.5) gm/dL Hct (39.0-53.0) % MCV (80.0-100.0) fL MCH (25.0-35.0) pg MCHC (31.0-37.0) g/dL RDW (11.5-15.5) % Plt Count (150-450) k/uL MPV Neutrophils % % Lymphocytes % % Monocytes % % Eosinophils % % Basophils % % Neutrophils # (1.3-7.7) k/uL Lymphocytes # (1.0-4.8) k/uL Monocytes # (0-1.0) k/uL Eosinophils # (0-0.7) k/uL Basophils # (0-0.2) k/uL Hypochromasia PT (9.0-12.0) sec INR (<1.2) APTT (22.0-30.0) sec Sodium (137-145) mmol/L Potassium (3.5-5.1) mmol/L Chloride (98-107) mmol/L Carbon Dioxide (22-30) mmol/L Anion Gap mmol/L BUN (9-20) mg/dL Creatinine (0.66-1.25) mg/dL Est GFR (CKD-EPI)AfAm (>60 ml/min/1.73 sqM) Est GFR (CKD-EPI)NonAf (>60 ml/min/1.73 sqM) Glucose (74-99) mg/dL Calcium (8.4-10.2) mg/dL Magnesium (1.6-2.3) mg/dL Total Bilirubin (0.2-1.3) mg/dL AST (17-59) U/L ALT (4-49) U/L Alkaline Phosphatase (38-126) U/L Total Protein (6.3-8.2) g/dL Albumin (3.5-5.0) g/dL Coronavirus (PCR) Not Detected (Not Detectd) Critical Care Time Critical Care Time: Yes Total Critical Care Time: 35 Disposition Clinical Impression: Cardiac arrest, Signs of return of spontaneous circulation Disposition: ADMITTED IP TO THIS [facility] Condition: Poor Is patient prescribed a controlled substance at d/c from ED?: No Time of Disposition: 11:35 Decision to Admit Reason: Admit from EC Decision Date: 05/27/21 Decision Time: 12:20
[2021-05-27 11:39] LABS: Partial Thromboplastin Time 27.4 sec (22.0-30.0); Prothrombin Time 10.8 sec (9.0-12.0)
[2021-05-27 12:02] LABS: Calcium 7.9 mg/dL (8.4-10.2); Magnesium 2.4 mg/dL (1.6-2.3); Potassium 4.2 mmol/L (3.5-5.1); Total Bilirubin 0.6 mg/dL (0.2-1.3); Total Protein 5.1 g/dL (6.3-8.2)
--- NOTE | 2021-05-27 12:20 | XR ---
EXAMINATION TYPE: XR chest 1V portable DATE OF EXAM: 05/27/2021 COMPARISON: Chest x-ray 05/19/2021, CT 05/28/2021 HISTORY: Cardiac arrest, intubated TECHNIQUE: Single frontal view of the chest is obtained. FINDINGS: Endotracheal tube has been placed in the interval, there is an NG tube overlying appropria te position, right jugular central venous catheter is present with the distal tip near the cavoatrial junction level. There is no pneumothorax. Basilar increased attenuation is chronic, heart remains en larged. There are some strand-like densities in the perihilar location, lung bases. IMPRESSION: No evident complication status post intubation. Chronic cardiomegaly, basilar density wh ich may reflect underlying pleural effusion, atelectasis, difficult to exclude pneumonia, findings in the lung bases felt likely to be chronic
--- NOTE | 2021-05-27 12:25 | CT ---
EXAMINATION TYPE: CT brain wo con DATE OF EXAM: 05/27/2021 COMPARISON: None INDICATION: Cardiac arrest, ROSC DLP: 1099.4 mGycm, Automated exposure control for dose reduction was used. CONTRAST: None CT of the brain is performed utilizing 3 mm thick sections through the posterior fossa and 3 mm thick sections through the remaining calvarium. Study is performed within 24 hours of arrival to the hosp [facility]. No abnormal hyperdensity is present to suggest an acute intracranial hemorrhage. No mass lesion is evident. There is loss of the luna-white matter differentiation. There appears to be effacement of the sulci. Fourth ventricle is midline. Lateral ventricles appear normal. Third ventricle is poorly visualized. No midline shift is evident. Patient is intubated and has a nasogastric tube. Paranasal sinuses are clear. Paranasal sinuses and m astoid air cells within the [id number] are clear. IMPRESSIONS: 1. Loss of the luna-white matter differentiation and effacement of the sulci and some effacement of ventricles without hydrocephalus. Findings can be compatible with anoxic injury.
[2021-05-27] MEDS: IPRATROPIUM-ALBUTEROL 3 ML NEB INHALATION SCH ×3 (12:31→19:29)
[2021-05-27 12:58] LABS: Glucose,Whole Blood 388 mg/dL (75-99)
--- NOTE | 2021-05-27 13:58 | P.CNPUL ---
History of Present Illness Consult date: 05/27/21 Requesting physician: Kristopher Stone Reason for consult: other (Cardiac arrest) Chief complaint: Cardiac arrest History of present illness: This is a 41-year-old white male with history of multiple medical problems including end-stage renal disease, history of recent laparoscopic cholecystectomy done at our institution, benign essential hypertension, dyslipidemia, history of GI bleeding, peripheral vessel occlusive disease, history of right-sided pleural effusion requiring decortication in the past, history of cardiac tamponade tamponade requiring a pericardial window. History of previous transmetatarsal amputation of the left foot, history of right eye retinal detachment, and history of previous MRSA infection. History of ventriculo peritoneal shunt. Patient was last discharged on 05/23/2021, he underwent laparoscopic cholecystectomy by Dr. Aguirre on 05/20/21. His hospital course was relatively uneventful. Today, the patient was undergoing hemodialysis. His endoscopy, and he developed a sudden cardiac arrest while undergoing hemodialysis. Patient was seen in the emergency room at [facility], he was resuscitated by the hemodialysis staff initially via ACLS protocol. His approximate time was anywhere between 30-60 minutes. In the ER, at [facility], patient did have a return of spontaneous circulation, his airway was exchanged by the ER physician at [place], and a central venous access through the IJ was obtained by the ER physician at [place]. Patient received a total of 3 rounds of epinephrine and 1 calcium. Patient was eventually transported via helicopter down to [facility]. Patient did not require any pressors during transport, and he did not require any sedatives. Did not have any spontaneous respiration. I saw the patient down in the ER, he was hemodynamically stable, he had no responses whatsoever, his pupils were unequal however he had previous surgery on his right eye/pupil. Discussed his status with his mother at bedside, and we will be transferring the patient shortly up to the ICU. Updated the mother that the patient has clearly what seems to be severe anoxic brain injury, multiple consultants will be seeing the patient including neurology. Further testing will be done to determine the severity of his anoxic brain injury. Review of Systems ROS unobtainable: due to endotracheal tube (However according to the mother patient was doing fine since he was last discharged from [facility], and he had no symptoms earlier prior to his dialysis.) Past Medical History Past Medical History: Asthma, Diabetes Mellitus, Dialysis, Eye Disorder, GERD/Reflux, GI Bleed, Hyperlipidemia, Hypertension, Pneumonia, Renal Disease, Vascular Disorder Additional Past Medical History / Comment(s): Bilateral pleural effusions with R side worse-bilateral thoracentisis/ R pleural pigtail cath/R side alteplase pleural instillation/decortication/cryoablation, cardiac tamponade with window, IDDM type I, diabetic since he was age 21, DKA, ESRD with hemodialysis on M/W/F, fistula right lower arm, mineral bone disease, volume overload, chronic anemia, hiatal hernia, previous history of GI bleed secondary to peptic ulcer disease, peripheral vascular disease, low back pain/DDD, osteomyelitis L foot in 2012, diabetic foot ulcers and amputations, R eye retinal detachment/surgery-vision poor, L eye cataract/blindness, recent diarrhea History of Any Multi-Drug Resistant Organisms: MRSA Date of last positivie culture/infection: 12/20/11 MDRO Source:: Left Foot Past Surgical History: Cholecystectomy, Ventriculoperitoneal Shunt Additional Past Surgical History / Comment(s): A/V fistula R lower arm, renal needle bx, 2008 left great toe amp and 2013 2nd to 5th left foot toes amputated, L foot I&D, right chest mediport x2 with removal in 2010 and 2012. right eye retina reattachment sx 03/2015. EGD/colonoscopy, pericardial window for cardiac tampanode, bilateral thoracentesis, R pleural pigtail insertion/alteplase pleural instillation/thoracotomy with decortication and cryoablation, EGD, colonoscopy. Past Anesthesia/Blood Transfusion Reactions: No Reported Reaction Additional Past Anesthesia/Blood Transfusion Reaction / Comment(s): Pt states he has received blood in past without reaction. Past Psychological History: Depression Smoking Status: Never smoker Past Alcohol Use History: None Reported Past Drug Use History: None Reported - Past Family History Mother Family Medical History: Hypertension Father Family Medical History: CVA/TIA, Diabetes Mellitus, Hypertension Additional Family Medical History / Comment(s): Father is at the age of 53yrs from a CVA. Medications and Allergies Home Medications Medication Instructions Recorded Confirmed Type Pravastatin Sodium [Pravachol] 40 mg PO HS 12/25/05/27/21 History amLODIPine [Norvasc] 10 mg PO DAILY 11/14/18 05/27/21 History Dicyclomine [Bentyl] 20 mg PO QID PRN 02/28/19 05/27/21 History Glucagon Emergency Kit 1 mg IM ONCE PRN 02/28/19 05/27/21 History ARIPiprazole [Abilify] 15 mg PO HS 04/19/20 05/27/21 History HYDROcodone/APAP 5-325MG [[place] 1 tab PO BID PRN 04/19/20 05/27/21 History 5-325] Sertraline [Zoloft] 50 mg PO DAILY 04/19/20 05/27/21 History hydrALAZINE HCL [Apresoline] 100 mg PO TID 04/19/20 05/27/21 History Loratadine [Alavert] 10 mg PO DAILY PRN 05/10/20 05/27/21 History Gabapentin [Neurontin] 100 mg PO HS cap 05/11/20 05/27/21 Rx Metoclopramide HCl [Reglan] 5 mg PO HS 10/04/20 05/27/21 History Insulin Degludec [Tresiba] 20 unit SQ DAILY 10/12/20 05/27/21 History Carvedilol [Coreg] 12.5 mg PO BID 03/22/21 05/27/21 History Loperamide HCl [Loperamide] 2 mg PO QID PRN 03/22/21 05/27/21 History Multivitamins, Thera [Multivitamin 1 tab PO DAILY 03/22/21 05/27/21 History (formulary)] Albuterol Inhaler [Ventolin Hfa 1 puff INHALATION RT-QID PRN #1 03/25/21 05/27/21 Rx Inhaler] puff Albuterol Nebulized [Ventolin 2.5 mg INHALATION RT-QID #0 ml 03/25/21 05/27/21 Rx Nebulized] tiZANidine HCL 2 mg PO Q8H PRN 05/18/21 05/27/21 History traZODone HCL 100 mg PO HS 05/18/21 05/27/21 History Acetaminophen Tab [Tylenol Tab] 500 mg PO Q6H PRN #30 tablet 05/20/21 05/27/21 Rx Simethicone [Gas-X] 125 mg PO AC-TID PRN #20 cap 05/20/21 05/27/21 Rx Amoxic-Pot Clav 500-125 mg 1 tab PO Q12HR #10 tab 05/22/21 05/27/21 Rx [Augmentin 500-125 mg] Calcium Acetate [PhosLo] 667 mg PO TID-W/MEALS #90 tab 05/22/21 05/27/21 Rx Psyllium Husk 100% [Metamucil 6 gm PO DAILY #30 packet 05/23/21 05/27/21 Rx Packet] Allergies Allergy/AdvReac Type Severity Reaction Status Date / Time lisinopril Allergy Unknown Verified 05/27/21 12:10 atorvastatin calcium AdvReac Nausea & Verified 05/27/21 12:10 [From Lipitor] Vomiting/muscle weakness losartan potassium AdvReac Nausea & Verified 05/27/21 12:10 [From Cozaar] Vomiting/hypotension tramadol AdvReac drowsiness Verified 05/27/21 12:10 Physical Exam Vitals: Vital Signs Temp Pulse Resp BP Pulse Ox 05/27/21 12:13 97.4 F L 69 14 112/71 100 05/27/21 11:19 14 05/27/21 11:13 63 14 127/82 100 Intake and Output 05/26/21 05/27/21 05/27/21 22:59 06:59 14:59 Other: Weight 63.503 kg General appearance: Revealed a 41-year-old white male intubated, unresponsive to any stimuli Head exam: Atraumatic, normocephalic. Endotracheal tube and orogastric tube are noted Eye exam: Absent: PERRL (Both pupils are nonreactive, right pupil appears postsurgical, proximally 6 mm on the left pupil is 4 mm. No corneal reflex) Respiratory exam: Symmetrical chest expansion, good breath sound bilaterally, no crackles or rhonchi or wheezes. Cardiovascular Exam: Normal S1 and S2, no S3 gallop. 2/6 systolic murmur thought the precordium. GI/Abdominal exam: Soft nontender no megaly no rebound no guarding. Extremities exam: Left sided transmetatarsal amputation is noted, good pulses noted bilaterally/dorsalis pedis pulses are palpable in both feet. Neurological exam: Unresponsive to any stimuli. No spontaneous movement. Skin exam: No rashes. AV fistula is noted in both forearms. Results - Laboratory Findings CBC and BMP: 05/27/21 11:21 05/27/21 11:21 PT/INR, D-dimer PT 10.8 sec (9.0-12.0) 05/27/21 11:21 INR 1.0 (<1.2) 05/27/21 11:21 Abnormal lab findings: Abnormal Labs 05/27/21 05/27/21 05/27/21 11:21 11:21 12:56 RBC 3.43 L Hgb 10.7 L Hct 33.8 L Lymphocytes # 0.3 L Sodium 133 L Carbon Dioxide 18 L BUN 34 H Creatinine 6.60 H Glucose 407 H POC Glucose (mg/dL) 388 H Calcium 7.9 L Magnesium 2.4 H AST 79 H Alkaline Phosphatase 139 H Total Protein 5.1 L Albumin 3.0 L - Diagnostic Findings Chest x-ray: image reviewed (Chest x-ray showed adequate placement of the endotracheal tube, cardiomegaly, right IJ central line is noted, minimal haziness at the bases bilaterally. Pneumonia is not entirely ruled out/aspiration pneumonia) CT scan - chest: image reviewed Additional studies: CT of the brain showed loss of luna white matter differentiation and effacement loss of the sulci, compatible with anoxic brain injury. Assessment and Plan Assessment: Impression: Cardiac arrest with prolonged down time Suspect severe anoxic brain injury Suspect aspiration pneumonia End-stage renal disease on hemodialysis Type 1 diabetes. Peripheral vessel occlusive disease. 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 History of right eye retinal detachment requiring surgery. History of recent laparoscopic cholecystectomy. History of right and left AV fistula Recommendation: Continue ventilatory support. Hemodynamic support if necessary. Consult cardiology, nephrology, and urology. EEG to be done in a.m. GI and DVT prophylaxis. Hemodynamic monitoring and neurological assessment Empiric antibiotics coverage for presumptive aspiration pneumonia Consider starting nutritional support in the next 24 hours. Resume home meds. We will continue to follow. Prognosis is extremely poor and guarded. Discussed his condition with his mother at bedside, and explained to her that we are most likely dealing with severe anoxic brain injury. We'll continue to follow. Time with Patient: Greater than 30
[2021-05-27] MEDS: NOREPINEPHRINE 32 MG in SODIUM CHLORIDE 0.9% 218 ML IV SCH ×2 (14:25→19:13)
--- NOTE | 2021-05-27 14:29 | XR ---
EXAMINATION TYPE: XR chest 1V portable DATE OF EXAM: 05/27/2021 COMPARISON: Chest x-ray same dated earlier time HISTORY: OG tube placement TECHNIQUE: Single frontal view of the chest is obtained. FINDINGS: Orogastric tube shows the side port in the left upper quadrant, distal tip is not included on exam. No interval change compared to prior exam. IMPRESSION: OG tube as described.
--- NOTE | 2021-05-27 14:59 | P.HPIM ---
History of Present Illness H&P Date: 05/27/21 Chief Complaint: Cardiac arrest History of presenting complaint: This is a 41-year-old patient follows with Dr. Trevino. Extensive medical history. Chronic stable medical conditions include asthma, diabetes, , hypertension, hyperlipidemia, history of bilateral pleural effusions, cardiac tamponade window, end-stage kidney disease on hemodialysis Sunday and Sunday , fistula in the right forearm, minimal bone disease, chronic anemia, peptic ulcer disease, peripheral arterial disease bilateral poor vision. Also has a fistula in the left arm it is maturing Reason admitted to the hospital and underwent cholecystectomy by Dr. Aguirre for acute cholecystitis and was discharged on May 23. Patient is stable. Doing well. Good oral intake. Today patient is undergoing hemodialysis and he developed cardiac arrest needing the same. He was taken to [place] ER and the downtime was anywhere between 30- 60 minutes. Patient didn't have any done a spontaneous ablation. Patient did receive about 3 dose epinephrine. He was slowed down by helicopter to [place] in working on ER. He has unequal pupils to fixed. He was moved to the ICU. Seen by Dr. Tarango, radio time sales supervisor Patient currently denies you. Intubated. Review of systems: Patient intubated Past medical history to include: Asthma, diabetes, GERD, peptic ulcer disease, hypertension, hyperlipidemia, bilateral pleural effusion with right-sided thoracentesis, decortication, cardiac tamponade window, diabetes type I since age of 21, on hemodialysis Sunday and Sunday of the fistula in the right lower arm. Minimal bone disease, chronic anemia, hiatal hernia, peptic ulcer disease, peripheral arterial disease, DJD, osteoarthritis of the left foot in 2012, have her take foot ulcers and amputations, right eye retinal detachment, left eye Blindness MRSA infections, ventriculoperitoneal shunt, depression Social history: Lives with his mother. No history of smoking. Alcohol rarely. Did chew tobacco in the past stopped 2016 Physical examination: VITAL SIGNS: 94.6, 58, 14, 1 3697, 100% on the ventilator [100% GENERAL: BMI 21.3, laying in bed, intubated EYES: Right pupil dilated fixed, left pupil smaller fixed. No corneal reflex.. HEENT: External appearance of nose and ears normal, oral cavity endotracheal tube NECK: JVD not raised; masses not palpable. HEART: First and second heart sounds are normal; no edema. LUNGS: Respiratory rate increased; fair breath sounds. ABDOMEN: Soft, rno tenderness, no guarding rigidity, liver spleen not palpable, no masses palpable. PSYCH: Unable to answer questions EXTREMITIES: Right forearm arm AV fistula . Left upper extremity fistula. Left foot second to fifth toe amputated NEUROLOGICAL: No response to painful stimuli. Absent gag reflex. Absent corneal reflex. Absent dolls eyes movements LYMPHATICS: No lymph nodes palpable in the axilla and neck INVESTIGATIONS, reviewed in the clinical context: White count 7 hemoglobin 10.7 platelets 150 potassium 4.2 BUN 34 creatinine 6.6 Coronavirus [PCR]: Not detected EKG tracing personally reviewed by me: Normal sinus rhythm prolonged QT Chest x-ray film personally reviewed by me-[portable]: Borderline cardiomegaly lung matute clear Computed tomography scan of the brain: Loss of luna-white matter differentiation and effacement of the sulci. No hydrocephalus. Finding suggestive of anoxic brain injury Assessment and plan: -Patient status post cardiac arrest with a possible 30-60 minute downtime. Patient has absent brainstem reflexes. Computed tomography scan findings suggestive also of anoxic brain injury. -Diabetes mellitus type 1, since age of 21, chronically on insulin Follow Accu-Cheks -Intermittent asthma, bronchodilators, -History of loculated right pleural effusion previous pigtail catheter placement and alteplase infusion -GERD Tums when necessary -Hyperlipidemia Pravachol 40 mg daily at bedtime -Essential hypertension with chronic kidney disease Follow blood pressure closely -Chronic kidney disease minimal bone disease -Hiatal hernia -Peripheral arterial disease Pravachol, and baby aspirin -Bilateral poor vision from diabetic retinopathy -Depression Zoloft 50 mg daily, Desyrel 100 mg daily at bedtime -Chronic insomnia for multiple medical problems Melatonin 3 mg daily at bedtime when necessary, trazodone 100 mg daily at b edtime -End-stage kidney disease on hemodialysis Sunday and Sunday Hemodialysis. Consult nephrology. right arm AV fistula is being used. has a maturing left upper extremity fistula Consultation to radio time sales supervisor and neurology. EEG ordered. Intubated. On ventilator support. Prognosis poor. Dr. Tarango in the ER physician did speak to the mother. Continue supportive care. Past Medical History Past Medical History: Asthma, Diabetes Mellitus, Dialysis, Eye Disorder, GERD/Reflux, GI Bleed, Hyperlipidemia, Hypertension, Pneumonia, Renal Disease, Vascular Disorder Additional Past Medical History / Comment(s): Bilateral pleural effusions with R side worse-bilateral thoracentisis/ R pleural pigtail cath/R side alteplase pleural instillation/decortication/cryoablation, cardiac tamponade with window, IDDM type I, diabetic since he was age 21, DKA, ESRD with hemodialysis on M/W/F, fistula right lower arm, mineral bone disease, volume overload, chronic anemia, hiatal hernia, previous history of GI bleed secondary to peptic ulcer disease, peripheral vascular disease, low back pain/DDD, osteomyelitis L foot in 2012, diabetic foot ulcers and amputations, R eye retinal detachment/surgery-vision poor, L eye cataract/blindness, recent diarrhea History of Any Multi-Drug Resistant Organisms: MRSA Date of last positivie culture/infection: 12/20/11 MDRO Source:: Left Foot Past Surgical History: Cholecystectomy, Ventriculoperitoneal Shunt Additional Past Surgical History / Comment(s): A/V fistula R lower arm, renal needle bx, 2008 left great toe amp and 2013 2nd to 5th left foot toes amputated, L foot I&D, right chest mediport x2 with removal in 2010 and 2012. right eye retina reattachment sx 03/2015. EGD/colonoscopy, pericardial window for cardiac tampanode, bilateral thoracentesis, R pleural pigtail insertion/alteplase pleural instillation/thoracotomy with decortication and cryoablation, EGD, colonoscopy. Past Anesthesia/Blood Transfusion Reactions: No Reported Reaction Additional Past Anesthesia/Blood Transfusion Reaction / Comment(s): Pt states he has received blood in past without reaction. Past Psychological History: Depression Smoking Status: Never smoker Past Alcohol Use History: None Reported Past Drug Use History: None Reported - Past Family History Mother Family Medical History: Hypertension Father Family Medical History: CVA/TIA, Diabetes Mellitus, Hypertension Additional Family Medical History / Comment(s): Father is at the age of 53yrs from a CVA. Medications and Allergies Home Medications Medication Instructions Recorded Confirmed Type Pravastatin Sodium [Pravachol] 40 mg PO HS 12/26/15 05/27/21 History amLODIPine [Norvasc] 10 mg PO DAILY 11/14/18 05/27/21 History Dicyclomine [Bentyl] 20 mg PO QID PRN 02/28/19 05/27/21 History Glucagon Emergency Kit 1 mg IM ONCE PRN 02/28/19 05/27/21 History ARIPiprazole [Abilify] 15 mg PO HS 04/19/20 05/27/21 History HYDROcodone/APAP 5-325MG [[place] 1 tab PO BID PRN 04/19/20 05/27/21 History 5-325] Sertraline [Zoloft] 50 mg PO DAILY 04/19/20 05/27/21 History hydrALAZINE HCL [Apresoline] 100 mg PO TID 04/19/20 05/27/21 History Loratadine [Alavert] 10 mg PO DAILY PRN 05/10/20 05/27/21 History Gabapentin [Neurontin] 100 mg PO HS cap 05/11/20 05/27/21 Rx Metoclopramide HCl [Reglan] 5 mg PO HS 10/04/20 05/27/21 History Insulin Degludec [Tresiba] 20 unit SQ DAILY 10/12/20 05/27/21 History Carvedilol [Coreg] 12.5 mg PO BID 03/22/21 05/27/21 History Loperamide HCl [Loperamide] 2 mg PO QID PRN 03/22/21 05/27/21 History Multivitamins, Thera [Multivitamin 1 tab PO DAILY 03/22/21 05/27/21 History (formulary)] Albuterol Inhaler [Ventolin Hfa 1 puff INHALATION RT-QID PRN #1 03/25/21 05/27/21 Rx Inhaler] puff Albuterol Nebulized [Ventolin 2.5 mg INHALATION RT-QID #0 ml 03/25/21 05/27/21 Rx Nebulized] tiZANidine HCL 2 mg PO Q8H PRN 05/18/21 05/27/21 History traZODone HCL 100 mg PO HS 05/18/21 05/27/21 History Acetaminophen Tab [Tylenol Tab] 500 mg PO Q6H PRN #30 tablet 05/20/21 05/27/21 Rx Simethicone [Gas-X] 125 mg PO AC-TID PRN #20 cap 05/20/21 05/27/21 Rx Amoxic-Pot Clav 500-125 mg 1 tab PO Q12HR #10 tab 05/22/21 05/27/21 Rx [Augmentin 500-125 mg] Calcium Acetate [PhosLo] 667 mg PO TID-W/MEALS #90 tab 05/22/21 05/27/21 Rx Psyllium Husk 100% [Metamucil 6 gm PO DAILY #30 packet 05/23/21 05/27/21 Rx Packet] Allergies Allergy/AdvReac Type Severity Reaction Status Date / Time lisinopril Allergy Unknown Verified 05/27/21 12:10 atorvastatin calcium AdvReac Nausea & Verified 05/27/21 12:10 [From Lipitor] Vomiting/muscle weakness losartan potassium AdvReac Nausea & Verified 05/27/21 12:10 [From Cozaar] Vomiting/hypotension tramadol AdvReac drowsiness Verified 05/27/21 12:10 Physical Exam Vitals: Vital Signs Temp Pulse Resp BP Pulse Ox 05/27/21 14:30 59 L 14 132/91 05/27/21 14:00 60 14 139/88 05/27/21 13:30 94.6 F L 58 L 14 136/87 100 05/27/21 13:00 61 14 05/27/21 12:47 14 05/27/21 12:13 97.4 F L 69 14 112/71 100 05/27/21 11:19 14 05/27/21 11:13 63 14 127/82 100 Intake and Output 05/26/21 05/27/21 05/27/21 22:59 06:59 14:59 Intake Total 200 Output Total 0 Balance 200 Intake: IV 200 0.9 200 Output: Urine 0 Other: # Voids 0 Weight 63.503 kg Results CBC & Chem 7: 05/27/21 11:21 05/27/21 11:21 Labs: Abnormal Lab Results - Last 24 Hours (Table) 05/27/21 05/27/21 05/27/21 Range/Units 11:21 11:21 12:56 RBC 3.43 L (4.30-5.90) m/uL Hgb 10.7 L (13.0-17.5) gm/dL Hct 33.8 L (39.0-53.0) % Lymphocytes # 0.3 L (1.0-4.8) k/uL Sodium 133 L (137-145) mmol/L Carbon Dioxide 18 L (22-30) mmol/L BUN 34 H (9-20) mg/dL Creatinine 6.60 H (0.66-1.25) mg/dL Glucose 407 H (74-99) mg/dL POC Glucose (mg/dL) 388 H (75-99) mg/dL Calcium 7.9 L (8.4-10.2) mg/dL Magnesium 2.4 H (1.6-2.3) mg/dL AST 79 H (17-59) U/L Alkaline Phosphatase 139 H (38-126) U/L Total Protein 5.1 L (6.3-8.2) g/dL Albumin 3.0 L (3.5-5.0) g/dL
[2021-05-27 15:02] VITALS: BMI 21.2
--- NOTE | 2021-05-27 15:14 | P.CNNES ---
History of Present Illness Consult date: 05/27/21 Requesting physician: Sachin Reveles Reason for Consult: cardiac arrest History of Present Illness: This is a 41-year-old gentleman with history of end-stage renal disease on dialysis, diabetes mellitus, diabetic peripheral neuropathy, with previous transmetatarsal amputation of left foot, right eye detachment, benign essential hypertension, peripheral vessel occlusive disease, right-sided pleural effusion requiring decortication in the past, history of cardiac tamponade who was transferred from outside hospital after he developed a cardiac arrest. Some of the history is obtained from medical record as well as that the patient's mother who is at bedside. Today he was undergoing hemodialysis and he developed a sudden cardiac arrest. Patient was seen in the [facility] emergency department and ACL's protocol was was down between 30-60 minutes. It is noted the patient received a total of 3 rounds of epinephrine and 1 calcium. Patient did not require pressors or sedation during transport. Patient was intubated and ventilated . Per the ED note it is mentioned that the patient does not have spontaneous respiration. Per the patient's mom she stated that prior to him getting dialysis he walks with a cane because of his peripheral neuropathy as well as end dictation of the left foot transmetatarsal. Otherwise he is neurologically intact and has a normal conversation. She denies of that patient has any history of stroke, TIAs or seizures to her knowledge. Workup in our hospital consisted of: Initial vital signs his blood pressure of 127/82, heart rate of 63, respiratory of 14, initial temperature is 97.4 rectal pulse ox of the head 100% on the 60% of low CT of the head is reported as loss of luna-white matter differentiation and effacement of sulci and some effacement of the ventricle without hydrocephalus. Finding can be compatible with anoxic injury. I personally reviewed that a CT of the head and I do agree there is a loss of luna-white matter differentiation compatible with anoxic injury. EKG is reported as normal sinus rhythm. Left atrial enlargement. Incomplete l eft bundle branch block. Prolonged QT. Abnormal EKG. White blood cells 7.0 which is within normal limits Initial sodium is 133, creatinine is 6.60, BUN 34, glucose of 407, calcium 7.9, magnesium is 2.4, AST of 79. Yates virus PCR was not detected Review of Systems Review of system is limited because of patient condition but per the pertinent positive and negative as per HPI. Past Medical History Past Medical History: Asthma, Diabetes Mellitus, Dialysis, Eye Disorder, GERD/Reflux, GI Bleed, Hyperlipidemia, Hypertension, Pneumonia, Renal Disease, Vascular Disorder Additional Past Medical History / Comment(s): Bilateral pleural effusions with R side worse-bilateral thoracentisis/ R pleural pigtail cath/R side alteplase pleural instillation/decortication/cryoablation, cardiac tamponade with window, IDDM type I, diabetic since he was age 21, DKA, ESRD with hemodialysis on M/W/, fistula right lower arm, mineral bone disease, volume overload, chronic anemia, hiatal hernia, previous history of GI bleed secondary to peptic ulcer disease, peripheral vascular disease, low back pain/DDD, osteomyelitis L foot in 2012, diabetic foot ulcers and amputations, R eye retinal detachment/surgery-vision p oor, L eye cataract/blindness, recent diarrhea History of Any Multi-Drug Resistant Organisms: MRSA Date of last positivie culture/infection: 12/20/11 MDRO Source:: Left Foot Past Surgical History: Cholecystectomy, Ventriculoperitoneal Shunt Additional Past Surgical History / Comment(s): A/V fistula R lower arm, renal needle bx, 2008 left great toe amp and 2013 2nd to 5th left foot toes amputated, L foot I&D, right chest mediport x2 with removal in 2010 and 2012. right eye retina reattachment sx 03/2015. EGD/colonoscopy, pericardial window for cardiac tampanode, bilateral thoracentesis, R pleural pigtail insertion/alteplase pleural instillation/thoracotomy with decortication and cryoablation, EGD, colonoscopy. Past Anesthesia/Blood Transfusion Reactions: No Reported Reaction Additional Past Anesthesia/Blood Transfusion Reaction / Comment(s): Pt states he has received blood in past without reaction. Past Psychological History: Depression Smoking Status: Never smoker Past Alcohol Use History: None Reported Past Drug Use History: None Reported - Past Family History Mother Family Medical History: Hypertension Father Family Medical History: CVA/TIA, Diabetes Mellitus, Hypertension Additional Family Medical History / Comment(s): Father is at the age of 53yrs from a CVA. Medications and Allergies Home Medications Medication Instructions Recorded Confirmed Type Pravastatin Sodium [Pravachol] 40 mg PO HS 12/26/15 05/27/21 History amLODIPine [Norvasc] 10 mg PO DAILY 11/14/18 05/27/21 History Dicyclomine [Bentyl] 20 mg PO QID PRN 02/28/19 05/27/21 History Glucagon Emergency Kit 1 mg IM ONCE PRN 02/28/19 05/27/21 History ARIPiprazole [Abilify] 15 mg PO HS 04/19/20 05/27/21 History HYDROcodone/APAP 5-325MG [Pinson 1 tab PO BID PRN 04/19/20 05/27/21 History 5-325] Sertraline [Zoloft] 50 mg PO DAILY 04/19/20 05/27/21 History hydrALAZINE HCL [Apresoline] 100 mg PO TID 04/19/20 05/27/21 History Loratadine [Alavert] 10 mg PO DAILY PRN 05/10/20 05/27/21 History Gabapentin [Neurontin] 100 mg PO HS cap 05/11/20 05/27/21 Rx Metoclopramide HCl [Reglan] 5 mg PO HS 10/04/20 05/27/21 History Insulin Degludec [Tresiba] 20 unit SQ DAILY 10/12/20 05/27/21 History Carvedilol [Coreg] 12.5 mg PO BID 03/22/21 05/27/21 History Loperamide HCl [Loperamide] 2 mg PO QID PRN 03/22/21 05/27/21 History Multivitamins, Thera [Multivitamin 1 tab PO DAILY 03/22/21 05/27/21 History (formulary)] Albuterol Inhaler [Ventolin Hfa 1 puff INHALATION RT-QID PRN #1 03/25/21 05/27/21 Rx Inhaler] puff Albuterol Nebulized [Ventolin 2.5 mg INHALATION RT-QID #0 ml 03/25/21 05/27/21 Rx Nebulized] tiZANidine HCL 2 mg PO Q8H PRN 05/18/21 05/27/21 History traZODone HCL 100 mg PO HS 05/18/21 05/27/21 History Acetaminophen Tab [Tylenol Tab] 500 mg PO Q6H PRN #30 tablet 05/20/21 05/27/21 Rx Simethicone [Gas-X] 125 mg PO AC-TID PRN #20 cap 05/20/21 05/27/21 Rx Amoxic-Pot Clav 500-125 mg 1 tab PO Q12HR #10 tab 05/22/21 05/27/21 Rx [Augmentin 500-125 mg] Calcium Acetate [PhosLo] 667 mg PO TID-W/MEALS #90 tab 05/22/21 05/27/21 Rx Psyllium Husk 100% [Metamucil 6 gm PO DAILY #30 packet 05/23/21 05/27/21 Rx Packet] Allergies Allergy/AdvReac Type Severity Reaction Status Date / Time lisinopril Allergy Unknown Verified 05/27/21 12:10 atorvastatin calcium AdvReac Nausea & Verified 05/27/21 12:10 [From Lipitor] Vomiting/muscle weakness losartan potassium AdvReac Nausea & Verified 05/27/21 12:10 [From Cozaar] Vomiting/hypotension tramadol AdvReac drowsiness Verified 05/27/21 12:10 Physical Examination - Vital Signs Vital Signs: Vital Signs Temp Pulse Resp BP Pulse Ox 05/27/21 14:30 59 L 14 132/91 05/27/21 14:00 60 14 139/88 05/27/21 13:30 94.6 F L 58 L 14 136/87 100 05/27/21 13:00 61 14 05/27/21 12:47 14 05/27/21 12:13 97.4 F L 69 14 112/71 100 05/27/21 11:19 14 05/27/21 11:13 63 14 127/82 100 Intake and Output 05/26/21 05/27/21 05/27/21 22:59 06:59 14:59 Intake Total 200 Output Total 0 Balance 200 Intake: IV 200 0.9 200 Output: Urine 0 Other: # Voids 0 Weight 63.503 kg GENERAL: The patient is lying in bed and does not seem in acute distress. CHEST: No murmurs to auscultation. No carotid bruit bilaterally. LUNG: Clear to auscultation bilaterally no wheezing noted throughout. Not labored breathing. Is intubated and on ventilator. ABDOMEN/GI: Bowel sounds present in all 4 quadrants. No tenderness to palpation throughout. NEUROLOGICAL: The exam is limited because of his condition. He is not on any sedation. Higher mental function: The patient is comatose GCS 3 (E1,VT1, M1). Not responding Not opening eyes or following commands. Cranial nerves: I had to manually open his eyes. Primary gaze is midline. The pupils are round, unequal (right is 6-7mm and left is 3mm and both are unreactive to light. Negative corneal bilaterally, Negative oculcephalic).. Not breathing over the vent (A/C set is at 14 and is breathing at 14). Negative gag or cough reflex. Cerebellum: Could not assess because of condition. Sensation: Could not assess and even with painful stimulation no movement or grimacing. Reflexes (right/left): 1+ throughout. Plantars is mute over the left while the left has left transmetatarsal amputation. . Results - Laboratory Findings CBC and BMP: 05/27/21 11:05/27/21 11:21 Abnormal Lab Findings: Abnormal Labs 05/27/21 05/27/21 05/27/21 11: 11: 12:56 RBC 3.43 L Hgb 10.7 L Hct 33.8 L Lymphocytes # 0.3 L Sodium 133 L Carbon Dioxide 18 L BUN 34 H Creatinine 6.60 H Glucose 407 H POC Glucose (mg/dL) 388 H Calcium 7.9 L Magnesium 2.4 H AST 79 H Alkaline Phosphatase 139 H Total Protein 5.1 L Albumin 3.0 L Assessment and Plan Assessment: Severe anoxic brain injury due to prolonged cardiac arrest at outside facility (for at least 30-60 minutes). No brainstem reflex and currently not on any sedation. Patient does have some component of metabolic abnormality (hyperglycemia with electrolyte abnormality calcium 7.9 and magnesium 2.4) End-stage renal disease on dialysis Type 1 diabetes right eye detachment, Peripheral neuropathy History of osteomyelitis of the left foot requiring transmetatarsal amputation History of peripheral vessel occlusive disease Plan: I ordered a routine EEG. I will not start the patient on antiepileptic drug unless there is epileptiform discharges or seizure in the EEG. Q1 hour neuro checks We'll defer the metabolic abnormality and electrolyte abnormality correction to the primary team/ICU team. On examination the patient had no brainstem reflexes and the patient's condition is severely guarded and sadly it appears the patient is brain . This was related to the patient's mother who is at bedside. She'll attempt to contact the rest of the family. Thank you for the consultation. Laurent Corey MD Neuro-Hospitalist Time with Patient: Greater than 30
[2021-05-27 15:22] LABS: Glucose,Whole Blood 417 mg/dL (75-99)
[2021-05-27] MEDS: INSULIN ASPART (NovoLOG) 100 UNIT/ML VIAL SQ SCH ×3 (15:29→22:16)
[2021-05-27] MEDS: PIPERACILLIN-TAZOBACTAM 3.375 GM in SODIUM CHLORIDE 0.9% 100 ML IVPB SCH (15:29)
[2021-05-27] MEDS: ENOXAPARIN 30 MG/0.3 ML SYRINGE SQ SCH (15:51)
[2021-05-27 16:14] LABS: ABG Base Excess -2.1 mmol/L; ABG HCO3 24 mmol/L (21-25); ABG Oxygen Saturation 98.3 % (94-97); ABG PCO2 44 mmHg (35-45); ABG PH 7.34 (7.35-7.45); ABG PO2 235 mmHg (83-108); ABG TCO2 25 mmol/L (19-24); Allen Test Performed? Yes
--- NOTE | 2021-05-27 16:50 | EEG ---
ELECTROENCEPHALOGRAM REPORT DATE OF SERVICE: 05/27/2021. CLINICAL HISTORY: This is a 41-year-old gentleman who presented to our facility after a prolonged cardiac arrest who continues to have altered mental status. The video EEG is obtained to evaluate for seizure epileptiform activity. RELEVANT MEDICATION: The patient is not on any antiepileptic drugs. EEG TYPE: A routine 21-channel EEG is performed with video using the 10/20 electrode placement system. DESCRIPTION: The patient is intubated on a ventilator. I did not appreciate any background activity over bilateral hemisphere. Interictal and ictal is none. ACTIVATION PROCEDURES: Photic stimulation and hyperventilation are not performed. CLINICAL INTERPRETATION: This is an abnormal routine EEG. There is no appreciable brain activity noted over bilateral hemispheres during this routine EEG. There is no seizure activity or epileptiform discharges seen. Clinical correlation is recommended. GUERDA / KATHRIN: [id number] / MTDD
[2021-05-27 18:01] LABS: Glucose,Whole Blood 318 mg/dL (75-99)
--- NOTE | 2021-05-27 18:37 | OP ---
OPERATIVE REPORT PROCEDURE: Placement of right dorsalis pedis arterial line. PREOPERATIVE DIAGNOSIS: Acute cardiac arrest and anoxic brain injury. POSTOPERATIVE DIAGNOSIS: Acute cardiac arrest and anoxic brain injury. ANESTHESIA: None deployed. PROCEDURE: The patient was placed in the supine position, the dorsal aspect of the right foot was prepared in a sterile fashion and drapes were applied. The dorsalis pedis pulse was palpated, and the artery was cannulated easily, a guidewire was placed. Then a Cook's catheter was inserted over the guidewire, and the guidewire was removed. Good waveform was noted. Good blood flow was noted. Line was secured using 3.0 silk sutures. Procedure was well tolerated. MMODL / IJN: [id number] /
[2021-05-27] MEDS ORDERED: INSULIN DETEMIR (LEVEMIR) 100 UNIT/ML SYR SQ SCH (21:00)
[2021-05-27 21:04] LABS: Glucose,Whole Blood 248 mg/dL (75-99)
[2021-05-27 22:05] LABS: Glucose,Whole Blood 203 mg/dL (75-99)
[2021-05-28] MEDS: PIPERACILLIN-TAZOBACTAM 3.375 GM in SODIUM CHLORIDE 0.9% 100 ML IVPB SCH ×2 (02:59→15:32)
[2021-05-28 03:03] LABS: Glucose,Whole Blood 66 mg/dL (75-99)
[2021-05-28] MEDS: DEXTROSE 50% SYRINGE 50 ML IVP ONE ×2 (03:10→11:14)
[2021-05-28] MEDS: INSULIN ASPART (NovoLOG) 100 UNIT/ML VIAL SQ SCH ×4 (03:11→21:11)
[2021-05-28 03:35] LABS: Glucose,Whole Blood 98 mg/dL (75-99)
[2021-05-28 05:27] LABS: ABG Base Excess -1.4 mmol/L; ABG HCO3 23 mmol/L (21-25); ABG Oxygen Saturation 97.8 % (94-97); ABG PCO2 38 mmHg (35-45); ABG PO2 153 mmHg (83-108); ABG TCO2 25 mmol/L (19-24); Allen Test Performed? Yes
[2021-05-28 05:42] LABS: HCT 32.7 % (39.0-53.0); HGB 10.5 gm/dL (13.0-17.5); MCH 29.9 pg (25.0-35.0); MCHC 32.2 g/dL (31.0-37.0); Mean Platelet Volume 9.9; Platelet Count 154 k/uL (150-450); RBC 3.53 m/uL (4.30-5.90); RDW 15.9 % (11.5-15.5); WBC 8.8 k/uL (3.8-10.6)
[2021-05-28 05:48] LABS: MCV 92.7 fL (80.0-100.0)
[2021-05-28 06:38] LABS: Calcium 7.9 mg/dL (8.4-10.2); Magnesium 2.3 mg/dL (1.6-2.3); Phosphorus 4.2 mg/dL (2.5-4.5); Potassium 3.4 mmol/L (3.5-5.1)
[2021-05-28 06:53] LABS: Glucose,Whole Blood 31 mg/dL (75-99)
[2021-05-28] MEDS ORDERED: DEXTROSE 50% SYRINGE 50 ML IVP ONE ×2 (06:54→15:20)
[2021-05-28 07:13] LABS: Glucose,Whole Blood 128 mg/dL (75-99)
--- NOTE | 2021-05-28 07:24 | XR ---
EXAMINATION TYPE: XR chest 1V portable DATE OF EXAM: 05/28/2021 COMPARISON: 05/27/2021 HISTORY: 41 years Male. STUDY INDICATION GIVEN: intubated, og tube . TECHNIQUE: AP chest radiograph IMPRESSION: Hyperinflated lungs in intubated patient. The endotracheal tube is at the level of the clavicle. Righ t central venous catheter tip at the cavoatrial junction. Nasogastric tube courses into the stomach. Small bilateral pleural effusions again seen with no significant change. Bibasilar subsegmental atele ctatic changes with mild pulmonary edema with cardiomegaly. No pneumothorax. No significant change. Osseous structures are stable.
[2021-05-28 07:28] LABS: Glucose,Whole Blood 109 mg/dL (75-99)
[2021-05-28] MEDS: IPRATROPIUM-ALBUTEROL 3 ML NEB INHALATION SCH ×4 (08:12→19:44)
[2021-05-28 09:12] LABS: Glucose,Whole Blood 75 mg/dL (75-99)
[2021-05-28] MEDS: CHLORHEXIDINE GLUCONATE 15 ML CUP MUCOUS MEM SCH ×3 (09:15→21:10)
[2021-05-28] MEDS: PANTOPRAZOLE 40 MG/10 ML VIAL IV SCH (09:22)
--- NOTE | 2021-05-28 09:23 | P.PN ---
Subjective Progress Note Date: 05/28/21 The patient is seen at baseline and per patient's nurse no change in patient's condition. The patient is not on any sedation. The patient had documented sugar that were low as low as 31 and another one of 66. His blood pressure is also is as low as 82/57 this morning. He is on norepinephrine. Objective - Vital Signs Vital signs: Vital Signs Temp 97.8 F 05/28/21 04:00 Pulse 73 05/28/21 08:12 Resp 11 L 05/28/21 07:00 BP 96/66 05/28/21 07:00 Pulse Ox 100 05/28/21 07:00 Intake & Output 05/27/21 05/28/21 05/28/21 18:59 06:59 18:59 Intake Total 400 686.304 20 Output Total 0 0 Balance 400 686.304 20 Weight 63.503 kg Intake: IV 400 680 20 0.9 300 580 20 Piperacillin-Tazobactam 3 100 100 .375 gm In Sodium Chloride 0.9% 100 ml @ 25 mls/hr IVPB Q12H [facility] Rx# :[id number] Intake, IV Titration 6.304 Amount Norepinephrine 32 mg In 6.304 Sodium Chloride 0.9% 218 ml @ 0.05 MCG/KG/MIN 1. 488 mls/hr IV .Q24H [facility] Rx#:[id number] Output: Urine 0 0 Other: # Voids 0 0 0 ABP, PAP, CO, CI - Last Documented Arterial Blood Pressure 120/44 - Exam GENERAL: The patient is lying in bed and does not seem in acute distress. CHEST: No murmurs to auscultation. No carotid bruit bilaterally. LUNG: Clear to auscultation bilaterally no wheezing noted throughout. Not labored breathing. Is intubated and on ventilator. ABDOMEN/GI: Bowel sounds present in all 4 quadrants. No tenderness to palpation throughout. NEUROLOGICAL: The exam is limited because of his condition. He is not on any sedation. Higher mental function: The patient is comatose GCS 3 (E1,VT1, M1). Not responding Not opening eyes or following commands. Cranial nerves: I had to manually open his eyes. Primary gaze is midline. The pupils are round, unequal (right is 5mm and left is 3mm and both are unreactive to light. Negative corneal bilaterally, Negative oculcephalic).. With painful stimuli he was moving his head from left side to the right side. The vent (A/C set is at 16 and is breathing at 16. But upon taking down to 6, he was was breathing at 12 on his own). Negative gag or cough reflex. Cerebellum: Could not assess because of condition. Sensation: Could not assess and even with painful stimulation no movement or grimacing but moved his head from left to the right.. Reflexes (right/left): 1+ throughout. Plantars is mute over the left while the left has left transmetatarsal amputation. . CT of the head is reported as loss of luna-white matter differentiation and effacement of sulci and some effacement of the ventricle without hydrocephalus. Finding can be compatible with anoxic injury. I personally reviewed that a CT of the head and I do agree there is a loss of luna-white matter differentiation compatible with anoxic injury. Routine EEG on 05/27/2021: As abnormal routine EEG. There is no appreciable brain activity noted over the bilateral hemisphere during this routine EEG. There is no seizure activity or epileptiform discharges seen. EKG is reported as normal sinus rhythm. Left atrial enlargement. Incomplete left bundle branch block. Prolonged QT. Abnormal EKG. White blood cells 7.0 which is within normal limits Initial sodium is 133, creatinine is 6.60, BUN 34, glucose of 407, calcium 7.9, magnesium is 2.4, AST of 79. Yates virus PCR was not detected - Labs CBC & Chem 7: 05/28/21 05:15 05/28/21 11:32 Labs: Abnormal Lab Results - Last 24 Hours (Table) 05/27/21 05/27/21 05/27/21 Range/Units 11:21 11:21 12:56 RBC 3.43 L (4.30-5.90) m/uL Hgb 10.7 L (13.0-17.5) gm/dL Hct 33.8 L (39.0-53.0) % RDW (11.5-15.5) % Lymphocytes # 0.3 L (1.0-4.8) k/uL ABG pH (7.35-7.45) ABG pO2 (83-108) mmHg ABG Total CO2 (19-24) mmol/L ABG O2 Saturation (94-97) % Sodium 133 L (137-145) mmol/L Potassium (3.5-5.1) mmol/L Carbon Dioxide 18 L (22-30) mmol/L BUN 34 H (9-20) mg/dL Creatinine 6.60 H (0.66-1.25) mg/dL Glucose 407 H (74-99) mg/dL POC Glucose (mg/dL) 388 H (75-99) mg/dL Calcium 7.9 L (8.4-10.2) mg/dL Magnesium 2.4 H (1.6-2.3) mg/dL AST 79 H (17-59) U/L Alkaline Phosphatase 139 H (38-126) U/L Total Protein 5.1 L (6.3-8.2) g/dL Albumin 3.0 L (3.5-5.0) g/dL 05/27/21 05/27/21 05/27/21 Range/Units 15:20 16:13 18:00 RBC (4.30-5.90) m/uL Hgb (13.0-17.5) gm/dL Hct (39.0-53.0) % RDW (11.5-15.5) % Lymphocytes # (1.0-4.8) k/uL ABG pH 7.34 L (7.35-7.45) ABG pO2 235 H (83-108) mmHg ABG Total CO2 25 H (19-24) mmol/L ABG O2 Saturation 98.3 H (94-97) % Sodium (137-145) mmol/L Potassium (3.5-5.1) mmol/L Carbon Dioxide (22-30) mmol/L BUN (9-20) mg/dL Creatinine (0.66-1.25) mg/dL Glucose (74-99) mg/dL POC Glucose (mg/dL) 417 H 318 H (75-99) mg/dL Calcium (8.4-10.2) mg/dL Magnesium (1.6-2.3) mg/dL AST (17-59) U/L Alkaline Phosphatase (38-126) U/L Total Protein (6.3-8.2) g/dL Albumin (3.5-5.0) g/dL 05/27/21 05/27/21 05/28/21 Range/Units 21:03 22:03 03:02 RBC (4.30-5.90) m/uL Hgb (13.0-17.5) gm/dL Hct (39.0-53.0) % RDW (11.5-15.5) % Lymphocytes # (1.0-4.8) k/uL ABG pH (7.35-7.45) ABG pO2 (83-108) mmHg ABG Total CO2 (19-24) mmol/L ABG O2 Saturation (94-97) % Sodium (137-145) mmol/L Potassium (3.5-5.1) mmol/L Carbon Dioxide (22-30) mmol/L BUN (9-20) mg/dL Creatinine (0.66-1.25) mg/dL Glucose (74-99) mg/dL POC Glucose (mg/dL) 248 H 203 H 66 L (75-99) mg/dL Calcium (8.4-10.2) mg/dL Magnesium (1.6-2.3) mg/dL AST (17-59) U/L Alkaline Phosphatase (38-126) U/L Total Protein (6.3-8.2) g/dL Albumin (3.5-5.0) g/dL 05/28/21 05/28/21 05/28/21 Range/Units 05:15 05:15 05:25 RBC 3.53 L (4.30-5.90) m/uL Hgb 10.5 L (13.0-17.5) gm/dL Hct 32.7 L (39.0-53.0) % RDW 15.9 H (11.5-15.5) % Lymphocytes # (1.0-4.8) k/uL ABG pH (7.35-7.45) ABG pO2 153 H (83-108) mmHg ABG Total CO2 25 H (19-24) mmol/L ABG O2 Saturation 97.8 H (94-97) % Sodium (137-145) mmol/L Potassium 3.4 L (3.5-5.1) mmol/L Carbon Dioxide 21 L (22-30) mmol/L BUN 44 H (9-20) mg/dL Creatinine 6.89 H (0.66-1.25) mg/dL Glucose 52 L (74-99) mg/dL POC Glucose (mg/dL) (75-99) mg/dL Calcium 7.9 L (8.4-10.2) mg/dL Magnesium (1.6-2.3) mg/dL AST (17-59) U/L Alkaline Phosphatase (38-126) U/L Total Protein (6.3-8.2) g/dL Albumin (3.5-5.0) g/dL 05/28/21 05/28/21 05/28/21 Range/Units 06:51 07:11 07:15 RBC (4.30-5.90) m/uL Hgb (13.0-17.5) gm/dL Hct (39.0-53.0) % RDW (11.5-15.5) % Lymphocytes # (1.0-4.8) k/uL ABG pH (7.35-7.45) ABG pO2 (83-108) mmHg ABG Total CO2 (19-24) mmol/L ABG O2 Saturation (94-97) % Sodium (137-145) mmol/L Potassium (3.5-5.1) mmol/L Carbon Dioxide (22-30) mmol/L BUN (9-20) mg/dL Creatinine (0.66-1.25) mg/dL Glucose (74-99) mg/dL POC Glucose (mg/dL) 31 L 128 H 109 H (75-99) mg/dL Calcium (8.4-10.2) mg/dL Magnesium (1.6-2.3) mg/dL AST (17-59) U/L Alkaline Phosphatase (38-126) U/L Total Protein (6.3-8.2) g/dL Albumin (3.5-5.0) g/dL Assessment and Plan Assessment: Severe anoxic brain injury/encephalopathy due to prolonged cardiac arrest at outside facility (for at least 30-60 minutes). Had few brainstem reflex and currently not on any sedation. Patient does have some component of metabolic abnormality (hyperglycemia (as low as 30's), hypovolemia and with electrolyte abnormality) End-stage renal disease on dialysis Type 1 diabetes right eye detachment, Peripheral neuropathy History of osteomyelitis of the left foot requiring transmetatarsal amputation History of peripheral vessel occlusive disease Plan: I gave patient one time dose of mannitol. I started the patient on hypertonic 3% 40cc/hr with Na goal of 145-155. Na+ check Q4 hours Q1 hour neuro checks Please avoid any hypoglycemia and hypovolemia and will defer management to primary/ICU team. Recommend to proceed with dialysis. We'll defer the metabolic abnormality and electrolyte abnormality correction to the primary team/ICU team. CONDITION: VERY GUARDED. I personally spoke with the patient's mother (via phone) today and notified her that about today examination he had few brain stem reflex and he is not brain . But unknown to what extend his recovery will be especially with prolonged cardiac arrest. She will make further decision in 3 days from now, to assess if any further improvement (and I agree with the decision). The plan is also discussed with ICU team. Then later I spoke with the patient and her son who were at bedside in length about his condition. Laurent Corey MD Neuro-Hospitalist Time with Patient: Greater than 30
[2021-05-28] MEDS: ENOXAPARIN 30 MG/0.3 ML SYRINGE SQ SCH (09:24)
[2021-05-28] MEDS: DEXTROSE 5%-0.45% NACL 1,000 ML IV SCH (09:27)
[2021-05-28] MEDS ORDERED: MANNITOL 20% IV ONE (10:00)
[2021-05-28] MEDS ORDERED: SALINE IV ONE (10:00)
--- NOTE | 2021-05-28 10:04 | P.CRDCN ---
History of Present Illness History of present illness: HISTORY OF PRESENTING ILLNESS Patient is a pleasant 41-year-old male with history of type 1 diabetes mellitus, end-stage renal disease, cholecystectomy, hypertension, hyperlipidemia, history of GI bleed, PAD, right pleural effusion status post decortication, history of cardiac Not in pericardial effusion, left foot amputation, previous MRSA infection, ELECTROFORMER shunt. Patient presented from [facility] after he was found unresponsive during dialysis and underwent approximately 30-60 minutes of CPR per records. Patient did have return of spontaneous circulation and since that time has been on low-dose vasopressors with a central line as well as a right pedal arterial line. Unfortunately from a neurologic standpoint has not been responsive. He had a CT brain which showed loss of luna-white matter differentiation effacement of the sulci consistent with anoxic brain injury. There was no report of any chest pain prior to cardiac arrest and no reported ventricular tachycardia or ventricular fibrillation. Previous echo from 03/23/2021 showed EF 55-60%, severe left ventricular hypertrophy, severe tricuspid regurgitation, RVSP of 60, trivial pericardial effusion, mild mitral regurgitation. REVIEW OF SYSTEMS At the time of my exam: Unable to assess secondary to altered mental status, on ventilator PHYSICAL EXAMINATION Vital signs reviewed. CONSTITUTIONAL: No apparent distress, not responsive on ventilator HEENT: Head is normocephalic. Sclerae anicteric. Mucous membranes of the mouth are moist. No JVD. No carotid bruit. +ETT CHEST EXAMINATION: Lungs are clear to auscultation. HEART EXAMINATION: Regular rate and rhythm. S1, S2 heard. +2/6 murmurs, no gallops or rub. ABDOMEN: Soft, nontender. Positive bowel sounds. EXTREMITIES: 2+ peripheral pulses, no lower extremity edema and no calf tenderness. NEUROLOGIC EXAMINATION: Patient is nonresponsive on ventilator ASSESSMENT 1. Cardiac arrest during dialysis, given calcium and most likely related to hyperkalemia 2. Type 1 diabetes mellitus 3. Hypertension 4. Severe LVH 5. End-stage renal disease 6. PAD with prior left transmetatarsal amputation 7. Anoxic brain injury 8. Severe tricuspid regurgitation 9. History of pericardial effusion status post pericardial window, trivial pericardial effusion on last echo PLAN Patient unfortunately suffered a cardiac arrest. Unclear etiology however most likely hyperkalemia has patient was receiving dialysis at the time. No reported chest pain or pressure prior to episode. Unfortunately patient had prolonged downtime and currently unresponsive, CTA showing findings consistent with anoxic brain injury. We will continue with supportive care. Await neurology recommendations and await for any neurologic response. Prognosis grave. Further recommendations from a cardiac standpoint. Please call with any questions. Past Medical History Past Medical History: Asthma, Diabetes Mellitus, Dialysis, Eye Disorder, GERD/Reflux, GI Bleed, Hyperlipidemia, Hypertension, Pneumonia, Renal Disease, Vascular Disorder Additional Past Medical History / Comment(s): Bilateral pleural effusions with R side worse-bilateral thoracentisis/ R pleural pigtail cath/R side alteplase pleural instillation/decortication/cryoablation, cardiac tamponade with window, IDDM type I, diabetic since he was age 21, DKA, ESRD with hemodialysis on //, fistula right lower arm, mineral bone disease, volume overload, chronic anemia, hiatal hernia, previous history of GI bleed secondary to peptic ulcer disease, peripheral vascular disease, low back pain/DDD, osteomyelitis L foot in 2012, diabetic foot ulcers and amputations, R eye retinal detachment/surgery-vision poor, L eye cataract/blindness, recent diarrhea History of Any Multi-Drug Resistant Organisms: MRSA Date of last positivie culture/infection: 12/20/11 MDRO Source:: Left Foot Past Surgical History: Cholecystectomy, Ventriculoperitoneal Shunt Additional Past Surgical History / Comment(s): A/V fistula R lower arm, renal needle bx, 2008 left great toe amp and 2013 2nd to 5th left foot toes amputated, L foot I&D, right chest mediport x2 with removal in 2010 and 2012. right eye retina reattachment sx 03/2015. EGD/colonoscopy, pericardial window for cardiac tampanode, bilateral thoracentesis, R pleural pigtail insertion/alteplase pleural instillation/thoracotomy with decortication and cryoablation, EGD, colonoscopy. Past Anesthesia/Blood Transfusion Reactions: No Reported Reaction Additional Past Anesthesia/Blood Transfusion Reaction / Comment(s): Pt states he has received blood in past without reaction. Past Psychological History: Depression Smoking Status: Never smoker Past Alcohol Use History: None Reported Past Drug Use History: None Reported - Past Family History Mother Family Medical History: Hypertension Father Family Medical History: CVA/TIA, Diabetes Mellitus, Hypertension Additional Family Medical History / Comment(s): Father is at the age of 53yrs from a CVA. Medications and Allergies Home Medications Medication Instructions Recorded Confirmed Type Pravastatin Sodium [Pravachol] 40 mg PO HS 12/26/15 05/27/21 History amLODIPine [Norvasc] 10 mg PO DAILY 11/14/18 05/27/21 History Dicyclomine [Bentyl] 20 mg PO QID PRN 02/28/19 05/27/21 History Glucagon Emergency Kit 1 mg IM ONCE PRN 02/28/19 05/27/21 History ARIPiprazole [Abilify] 15 mg PO HS 04/19/20 05/27/21 History HYDROcodone/APAP 5-325MG [[place] 1 tab PO BID PRN 04/19/20 05/27/21 History 5-325] Sertraline [Zoloft] 50 mg PO DAILY 04/19/20 05/27/21 History hydrALAZINE HCL [Apresoline] 100 mg PO TID 04/19/20 05/27/21 History Loratadine [Alavert] 10 mg PO DAILY PRN 05/10/20 05/27/21 History Gabapentin [Neurontin] 100 mg PO HS cap 05/11/20 05/27/21 Rx Metoclopramide HCl [Reglan] 5 mg PO HS 10/04/20 05/27/21 History Insulin Degludec [Tresiba] 20 unit SQ DAILY 10/12/20 05/27/21 History Carvedilol [Coreg] 12.5 mg PO BID 03/22/21 05/27/21 History Loperamide HCl [Loperamide] 2 mg PO QID PRN 03/22/21 05/27/21 History Multivitamins, Thera [Multivitamin 1 tab PO DAILY 03/22/21 05/27/21 History (formulary)] Albuterol Inhaler [Ventolin Hfa 1 puff INHALATION RT-QID PRN #1 03/25/21 05/27/21 Rx Inhaler] puff Albuterol Nebulized [Ventolin 2.5 mg INHALATION RT-QID #0 ml 03/25/21 05/27/21 Rx Nebulized] tiZANidine HCL 2 mg PO Q8H PRN 05/18/21 05/27/21 History traZODone HCL 100 mg PO HS 05/18/21 05/27/21 History Acetaminophen Tab [Tylenol Tab] 500 mg PO Q6H PRN #30 tablet 05/20/21 05/27/21 Rx Simethicone [Gas-X] 125 mg PO AC-TID PRN #20 cap 05/20/21 05/27/21 Rx Amoxic-Pot Clav 500-125 mg 1 tab PO Q12HR #10 tab 05/22/21 05/27/21 Rx [Augmentin 500-125 mg] Calcium Acetate [PhosLo] 667 mg PO TID-W/MEALS #90 tab 05/22/21 05/27/21 Rx Psyllium Husk 100% [Metamucil 6 gm PO DAILY #30 packet 05/23/21 05/27/21 Rx Packet] Allergies Allergy/AdvReac Type Severity Reaction Status Date / Time lisinopril Allergy Unknown Verified 05/27/21 12:10 atorvastatin calcium AdvReac Nausea & Verified 05/27/21 12:10 [From Lipitor] Vomiting/muscle weakness losartan potassium AdvReac Nausea & Verified 05/27/21 12:10 [From Cozaar] Vomiting/hypotension tramadol AdvReac drowsiness Verified 05/27/21 12:10 Physical Exam Vitals: Vital Signs Temp Pulse Resp BP Pulse Ox 05/28/21 08:23 73 05/28/21 08:12 73 05/28/21 07:00 70 11 L 96/66 100 05/28/21 06:30 73 18 82/57 05/28/21 06:00 67 18 85/52 05/28/21 05:30 65 18 98/61 05/28/21 05:00 64 18 100/62 100 05/28/21 04:30 64 18 100/63 100 05/28/21 04:00 97.8 F 64 18 95/60 100 05/28/21 03:30 64 18 117/70 100 05/28/21 03:00 66 18 97/62 100 05/28/21 02:30 65 18 123/72 100 05/28/21 02:00 67 18 119/68 100 05/28/21 01:30 67 18 119/68 100 05/28/21 01:00 68 18 100/64 100 05/28/21 00:30 68 18 108/64 100 05/28/21 00:00 98.7 F 69 18 101/66 100 05/27/21 23:30 70 18 110/66 100 05/27/21 23:00 70 18 112/72 05/27/21 22:30 72 18 112/69 100 05/27/21 22:00 73 18 112/65 100 05/27/21 21:30 75 18 119/70 100 05/27/21 21:00 99.0 F 76 18 109/61 100 05/27/21 20:30 76 18 106/62 100 05/27/21 20:00 78 18 151/74 100 05/27/21 19:42 78 05/27/21 19:30 75 18 93/56 100 05/27/21 19:00 101.0 F H 76 18 93/59 100 05/27/21 18:30 73 18 96/64 100 05/27/21 18:00 72 18 107/70 100 05/27/21 17:30 69 18 111/72 05/27/21 17:00 68 18 116/74 100 05/27/21 16:30 65 14 122/78 05/27/21 16:00 66 14 126/78 100 05/27/21 15:30 63 14 121/77 05/27/21 15:00 61 14 133/87 100 05/27/21 14:30 59 L 14 132/91 05/27/21 14:00 60 14 139/88 05/27/21 13:30 94.6 F L 58 L 14 136/87 100 05/27/21 13:00 61 14 05/27/21 12:47 14 05/27/21 12:13 97.4 F L 69 14 112/71 100 05/27/21 11:19 14 05/27/21 11:13 63 14 127/82 100 Intake and Output 05/27/21 05/28/21 05/28/21 22:59 06:59 14:59 Intake Total 500.869 385.435 21.220 Output Total 0 Balance 500.869 385.435 21.220 Intake: IV 500 380 20 0.9 400 280 20 Piperacillin-Tazobactam 3 100 100 .375 gm In Sodium Chloride 0.9% 100 ml @ 25 mls/hr IVPB Q12H [facility] Rx# :[id number] Intake, IV Titration 0.869 5.435 1.220 Amount Norepinephrine 32 mg In 0.869 5.435 1.220 Sodium Chloride 0.9% 218 ml @ 0.05 MCG/KG/MIN 1. 488 mls/hr IV .Q24H [facility] Rx#:[id number] Output: Urine 0 Other: # Voids 0 0 0 ABP, PAP, CO, CI - Last 8 Hours Arterial Blood Pressure 120/44 Arterial Blood Pressure 113/44 Arterial Blood Pressure 79/37 Arterial Blood Pressure 108/39 Arterial Blood Pressure 103/44 Arterial Blood Pressure 103/44 Arterial Blood Pressure 117/42 Arterial Blood Pressure 106/38 Arterial Blood Pressure 135/51 Arterial Blood Pressure 111/40 Arterial Blood Pressure 106/48 Results 05/28/21 05:15 05/28/21 05:15 Cardiac Enzymes 05/27/21 Range/Units 11:21 AST 79 H (17-59) U/L Coagulation 05/27/21 Range/Units 11:21 PT 10.8 (9.0-12.0) sec APTT 27.4 (22.0-30.0) sec CBC 05/27/21 05/28/21 Range/Units 11:21 05:15 WBC 7.0 8.8 (3.8-10.6) k/uL RBC 3.43 L 3.53 L (4.30-5.90) m/uL Hgb 10.7 L 10.5 L (13.0-17.5) gm/dL Hct 33.8 L 32.7 L (39.0-53.0) % Plt Count 150 154 (150-450) k/uL Comprehensive Metabolic Panel 05/27/21 05/28/21 Range/Units 11:21 05:15 Sodium 133 L 137 (137-145) mmol/L Potassium 4.2 3.4 L (3.5-5.1) mmol/L Chloride 100 106 (98-107) mmol/L Carbon Dioxide 18 L 21 L (22-30) mmol/L BUN 34 H 44 H (9-20) mg/dL Creatinine 6.60 H 6.89 H (0.66-1.25) mg/dL Glucose 407 H 52 L (74-99) mg/dL Calcium 7.9 L 7.9 L (8.4-10.2) mg/dL AST 79 H (17-59) U/L ALT 19 (4-49) U/L Alkaline Phosphatase 139 H (38-126) U/L Total Protein 5.1 L (6.3-8.2) g/dL Albumin 3.0 L (3.5-5.0) g/dL Current Medications Generic Name Dose Route Start Last Admin Trade Name Freq PRN Reason Stop Dose Admin Albuterol/Ipratropium 3 ml 05/27/21 12:00 05/28/21 08:12 Ipratropium-Albuterol 3 Ml Neb INHALATION 3 ml RT-QID [facility] Administration Chlorhexidine Gluconate 15 ml 05/27/21 22:30 05/28/21 09:20 Chlorhexidine Gluconate 15 Ml Cup MUCOUS MEM 15 ml BID [facility] Administration Enoxaparin Sodium 30 mg 05/27/21 14:00 05/28/21 09:24 Enoxaparin 30 Mg/0.3 Ml Syringe SQ 30 mg DAILY [facility] Administration Norepinephrine Bitartrate 32 250 mls @ 1.488 mls/hr 05/27/21 12:00 05/28/21 08:43 mg/ Sodium Chloride IV 0.03 mcg/kg/min .Q24H [facility] 0.893 mls/hr Titration Protocol 0.05 MCG/KG/MIN Piperacillin Sod/Tazobactam 100 mls @ 25 mls/hr 05/27/21 14:00 05/28/21 02:59 Sod 3.375 gm/ Sodium Chloride IVPB 25 mls/hr Q12H [facility] Administration Dextrose/Sodium Chloride 1,000 mls @ 50 mls/hr 05/28/21 09:00 05/28/21 09:27 Dextrose 5%-1/2ns Iv Soln IV 50 mls/hr .Q20H [facility] Administration Mannitol 80 ml/ IV Solution 80 mls @ 80 mls/hr 05/28/21 10:00 IV 05/28/21 10:59 ONCE ONE Sodium Chloride (Hypertonic) 500 mls @ 40 mls/hr 05/28/21 10:00 Saline 3% (Hypertonic) IV 05/29/21 10:01 .[id number] [facility] Protocol Insulin Aspart 0 unit 05/27/21 15:15 05/28/21 09:28 Insulin Aspart (Novolog) 100 Unit/Ml Vial SQ Not Given Q6H [facility] Protocol Insulin Detemir 18 unit 05/27/21 21:00 09/17/21 22:16 Insulin Detemir (Levemir) 100 Unit/Ml Syr SQ 18 unit HS [facility] Administration Naloxone HCl 0.2 mg 05/27/21 11:29 Naloxone 0.4 Mg/Ml 1 Ml Vial IV Q2M PRN Opioid Reversal Pantoprazole Sodium 40 mg 05/28/21 09:00 05/28/21 09:22 Pantoprazole 40 Mg/10 Ml Vial IV 40 mg DAILY [facility] Administration Intake and Output 05/27/21 05/28/21 05/28/21 22:59 06:59 14:59 Intake Total 500.869 385.435 21.220 Output Total 0 Balance 500.869 385.435 21.220 Intake: IV 500 380 20 0.9 400 280 20 Piperacillin-Tazobactam 3 100 100 .375 gm In Sodium Chloride 0.9% 100 ml @ 25 mls/hr IVPB Q12H [facility] Rx# :[id number] Intake, IV Titration 0.869 5.435 1.220 Amount Norepinephrine 32 mg In 0.869 5.435 1.220 Sodium Chloride 0.9% 218 ml @ 0.05 MCG/KG/MIN 1. 488 mls/hr IV .Q24H [facility] Rx#:[id number] Output: Urine 0 Other: # Voids 0 0 0 05/28/21 05:15 05/28/21 05:15
[2021-05-28] MEDS: SODIUM CHLORIDE 3%(HYPERTONIC) 500 ML IV SCH ×2 (10:14→22:08)
--- NOTE | 2021-05-28 10:14 | CONS ---
CONSULTATION REASON FOR CONSULTATION: End-stage renal disease. HISTORY OF PRESENT ILLNESS: The patient is a 41-year-old male with end-stage renal disease, on hemodialysis on a Sunday, Sunday, Sunday schedule. Patient was admitted from the dialysis unit, as he had a cardiac arrest while being dialyzed. EMS was called in. CPR was initiated. Patient was [facility]. It appears that he did have a down time of about 30 to 60 minutes. His blood pressure has been quite variable with Levophed on an off. At times it does shoot up in the 200 range as well. EEG done yesterday was suggestive of significant anoxic brain injury with no appreciable brain activity noted over bilateral hemispheres on the EEG. The patient is being followed by Neurology. He currently remains on the vent. There is no fever, no underlying infection noted. Potassium is 3.4. FiO2 is at 30%. PAST MEDICAL HISTORY: Type 1 diabetes, end-stage renal disease, CKD mineral bone disorder, anemia of chronic disease, peptic ulcer disease, hypertension, history of pneumonia, thoracentesis, decortication, history of cardiac tamponade, retinopathy, neuropathy, hiatal hernia, recurrent DKA, osteomyelitis. PAST SURGICAL HISTORY: AV fistula amputation, MediPort placement and removal, PermCath placement and removal, eye surgeries, right pleural decortication, EGD and colonoscopy. SOCIAL HISTORY: Negative for smoking, drug abuse or alcohol abuse. MEDICATIONS: Please see list. ALLERGIES: ALLERGIES include LISINOPRIL, LIPITOR, COZAAR, TRAMADOL. REVIEW OF SYSTEMS: No neurological responses noted. Patient is being followed by Neurology. No active bleeding. He remains on the vent. PHYSICAL EXAMINATION: Blood pressure 120/44, heart rate 70 per minute. Patient is afebrile. EXAMINATION OF THE HEART: S1 and S2. EXAMINATION OF LUNGS: Bilateral breath sounds are heard. ABDOMEN: Soft. LOWER EXTREMITIES: No evidence of edema. Chronic skin changes noted. TROLLEY WORKER EXAM: TROLLEY WORKER exam shows no major reflexes. LABS: Sodium 137, potassium 3.4, chloride 106. CO2 is 21, BUN 44, creatinine 6.8, hemoglobin 10.5. ASSESSMENT: 1. End-stage renal disease, on hemodialysis on a Sunday, Sunday, Sunday schedule. 2. Status post cardiac arrest. 3. Anoxic encephalopathy with EEG showing no brain activity, being followed by Neurology. This will be discussed with family today. 4. Chronic kidney disease mineral bone disorder. 5. Acute hypoxic respiratory failure associated with cardiac arrest, currently on the vent. PLAN: Hold off on dialysis for now. Adjust Levophed for blood pressure. Continue empiric antibiotics. CODE STATUS needs to be readdressed with the family. MMPEDROL / IJN: [id number] /
[2021-05-28] MEDS ORDERED: NOREPINEPHRINE 8 MG in SODIUM CHLORIDE 0.9% 250 ML IV SCH (11:00)
[2021-05-28 11:12] LABS: Glucose,Whole Blood 45 mg/dL (75-99)
[2021-05-28 11:28] LABS: Glucose,Whole Blood 96 mg/dL (75-99)
--- NOTE | 2021-05-28 11:46 | P.PN ---
Subjective Progress Note Date: 05/28/21 Principal diagnosis: Cardiac arrest and anoxic brain injury This is a 41-year-old white male with history of multiple medical problems including end-stage renal disease, history of recent laparoscopic cholecystectomy done at our institution, benign essential hypertension, dyslipi demia, history of GI bleeding, peripheral vessel occlusive disease, history of right-sided pleural effusion requiring decortication in the past, history of cardiac tamponade tamponade requiring a pericardial window. History of previous transmetatarsal amputation of the left foot, history of right eye retinal detachment, and history of previous MRSA infection. History of ventriculo peritoneal shunt. Patient was last discharged on 05/23/2021, he underwent laparoscopic cholecystectomy by Dr. Aguirre on 05/20/21. His hospital course was relatively uneventful. Today, the patient was undergoing hemodialysis. His endoscopy, and he developed a sudden cardiac arrest while undergoing hemodialysi s. Patient was seen in the emergency room at [facility], he was resuscitated by the hemodialysis staff initially via ACLS protocol. His approximate time was anywhere between 30-60 minutes. In the ER, at [facility], patient did have a return of spontaneous circulation, his airway was exchanged by the ER physician at [place], and a central venous access through the IJ was obtained by the ER physician at [place]. Patient received a total of 3 rounds of epinephrine and 1 calcium. Patient was eventually transported via helicopter down to [facility]. Patient did not require any pressors during transport, and he did not require any sedatives. Did not have any spontaneous respiration. I saw the patient down in the ER, he was hemodynamically stable, he had no responses whatsoever, his pupils were unequal however he had previous surgery on his right eye/pupil. Discussed his status with his mother at bedside, and we will be transferring the patient shortly up to the ICU. Updated the mother that the patient has clearly what seems to be severe anoxic brain injury, multiple consultants will be seeing the patient including neurology. Further testing will be done to determine the severity of his anoxic brain injury. Patient was reevaluated today on 05/28/2021, patient remains in the ICU, intubated and mechanically ventilated. Patient is unresponsive to any painful stimuli. He is on assist control rate of 18 tidal volume 450 FiO2 30%, and PEEP of 5 ABG this morning showed a pO2 of 153 pCO2 of 38 pH of 7.40 patient is requiring a small dose of norepinephrine at 0.03 mcg/kg/m. He is on enteral feeding utilizing Nepro /. Patient had an EEG yesterday which is pointing to extremely poor prognosis, and severe anoxic brain injury. THE patient is not brain , still triggering the ventilator, and breathing beyond assessed today. No meaningful responses noted. Patient is not responding to any deep painful stimuli. Pupils are basically about the same. Asked x-ray today showed hyperinflated lungs, minimal bibasilar subsegmental atelectasis. No significant change since yesterday. CBC is relatively normal, basic metabolic profile is normal ER and is 44 creatinine 6.89, patient will likely have dialysis today after evaluation by nephrology Objective - Vital Signs Vital signs: Vital Signs Temp 97.8 F 05/28/21 04:00 Pulse 73 05/28/21 08:23 Resp 11 L 05/28/21 07:00 BP 96/66 05/28/21 07:00 Pulse Ox 100 05/28/21 07:00 Intake & Output 05/27/21 05/28/21 05/28/21 18:59 06:59 18:59 Intake Total 400 686.304 21.220 Output Total 0 0 0 Balance 400 686.304 21.220 Weight 63.503 kg Intake: IV 400 680 20 0.9 300 580 20 Piperacillin-Tazobactam 3 100 100 .375 gm In Sodium Chloride 0.9% 100 ml @ 25 mls/hr IVPB Q12H [facility] Rx# :[id number] Intake, IV Titration 6.304 1.220 Amount Norepinephrine 32 mg In 6.304 1.220 Sodium Chloride 0.9% 218 ml @ 0.05 MCG/KG/MIN 1. 488 mls/hr IV .Q24H [facility] Rx#:[id number] Output: Urine 0 0 0 Other: # Voids 0 0 0 ABP, PAP, CO, CI - Last Documented Arterial Blood Pressure 120/44 - Exam General appearance: Revealed a 41-year-old white male intubated, unresponsive to any stimuli Head exam: Atraumatic, normocephalic. Endotracheal tube and orogastric tube are noted Eye exam: Absent: PERRL (Both pupils are nonreactive, right pupil appears postsurgical, proximally 6 mm on the left pupil is 4 mm. No corneal reflex) Respiratory exam: Symmetrical chest expansion, good breath sound bilaterally, no crackles or rhonchi or wheezes. Cardiovascular Exam: Normal S1 and S2, no S3 gallop. 2/6 systolic murmur thought the precordium. GI/Abdominal exam: Soft nontender no megaly no rebound no guarding. Extremities exam: Left sided transmetatarsal amputation is noted, good pulses noted bilaterally/dorsalis pedis pulses are palpable in both feet. Neurological exam: Unresponsive to any stimuli. No spontaneous movement. Skin exam: No rashes. AV fistula is noted in both forearms. - Labs CBC & Chem 7: 05/28/21 05:15 05/28/21 05:15 Labs: Abnormal Lab Results - Last 24 Hours (Table) 05/27/21 05/27/21 05/27/21 Range/Units 11:21 12:56 15:20 RBC (4.30-5.90) m/uL Hgb (13.0-17.5) gm/dL Hct (39.0-53.0) % RDW (11.5-15.5) % ABG pH (7.35-7.45) ABG pO2 (83-108) mmHg ABG Total CO2 (19-24) mmol/L ABG O2 Saturation (94-97) % Sodium 133 L (137-145) mmol/L Potassium (3.5-5.1) mmol/L Carbon Dioxide 18 L (22-30) mmol/L BUN 34 H (9-20) mg/dL Creatinine 6.60 H (0.66-1.25) mg/dL Glucose 407 H (74-99) mg/dL POC Glucose (mg/dL) 388 H 417 H (75-99) mg/dL Calcium 7.9 L (8.4-10.2) mg/dL Magnesium 2.4 H (1.6-2.3) mg/dL AST 79 H (17-59) U/L Alkaline Phosphatase 139 H (38-126) U/L Total Protein 5.1 L (6.3-8.2) g/dL Albumin 3.0 L (3.5-5.0) g/dL 05/27/21 05/27/21 05/27/21 Range/Units 16:13 18:00 21:03 RBC (4.30-5.90) m/uL Hgb (13.0-17.5) gm/dL Hct (39.0-53.0) % RDW (11.5-15.5) % ABG pH 7.34 L (7.35-7.45) ABG pO2 235 H (83-108) mmHg ABG Total CO2 25 H (19-24) mmol/L ABG O2 Saturation 98.3 H (94-97) % Sodium (137-145) mmol/L Potassium (3.5-5.1) mmol/L Carbon Dioxide (22-30) mmol/L BUN (9-20) mg/dL Creatinine (0.66-1.25) mg/dL Glucose (74-99) mg/dL POC Glucose (mg/dL) 318 H 248 H (75-99) mg/dL Calcium (8.4-10.2) mg/dL Magnesium (1.6-2.3) mg/dL AST (17-59) U/L Alkaline Phosphatase (38-126) U/L Total Protein (6.3-8.2) g/dL Albumin (3.5-5.0) g/dL 05/27/21 05/28/21 05/28/21 Range/Units 22:03 03:02 05:15 RBC 3.53 L (4.30-5.90) m/uL Hgb 10.5 L (13.0-17.5) gm/dL Hct 32.7 L (39.0-53.0) % RDW 15.9 H (11.5-15.5) % ABG pH (7.35-7.45) ABG pO2 (83-108) mmHg ABG Total CO2 (19-24) mmol/L ABG O2 Saturation (94-97) % Sodium (137-145) mmol/L Potassium (3.5-5.1) mmol/L Carbon Dioxide (22-30) mmol/L BUN (9-20) mg/dL Creatinine (0.66-1.25) mg/dL Glucose (74-99) mg/dL POC Glucose (mg/dL) 203 H 66 L (75-99) mg/dL Calcium (8.4-10.2) mg/dL Magnesium (1.6-2.3) mg/dL AST (17-59) U/L Alkaline Phosphatase (38-126) U/L Total Protein (6.3-8.2) g/dL Albumin (3.5-5.0) g/dL 05/28/21 05/28/21 05/28/21 Range/Units 05:15 05:25 06:51 RBC (4.30-5.90) m/uL Hgb (13.0-17.5) gm/dL Hct (39.0-53.0) % RDW (11.5-15.5) % ABG pH (7.35-7.45) ABG pO2 153 H (83-108) mmHg ABG Total CO2 25 H (19-24) mmol/L ABG O2 Saturation 97.8 H (94-97) % Sodium (137-145) mmol/L Potassium 3.4 L (3.5-5.1) mmol/L Carbon Dioxide 21 L (22-30) mmol/L BUN 44 H (9-20) mg/dL Creatinine 6.89 H (0.66-1.25) mg/dL Glucose 52 L (74-99) mg/dL POC Glucose (mg/dL) 31 L (75-99) mg/dL Calcium 7.9 L (8.4-10.2) mg/dL Magnesium (1.6-2.3) mg/dL AST (17-59) U/L Alkaline Phosphatase (38-126) U/L Total Protein (6.3-8.2) g/dL Albumin (3.5-5.0) g/dL 05/28/21 05/28/21 05/28/21 Range/Units 07:11 07:15 11:10 RBC (4.30-5.90) m/uL Hgb (13.0-17.5) gm/dL Hct (39.0-53.0) % RDW (11.5-15.5) % ABG pH (7.35-7.45) ABG pO2 (83-108) mmHg ABG Total CO2 (19-24) mmol/L ABG O2 Saturation (94-97) % Sodium (137-145) mmol/L Potassium (3.5-5.1) mmol/L Carbon Dioxide (22-30) mmol/L BUN (9-20) mg/dL Creatinine (0.66-1.25) mg/dL Glucose (74-99) mg/dL POC Glucose (mg/dL) 128 H 109 H 45 L (75-99) mg/dL Calcium (8.4-10.2) mg/dL Magnesium (1.6-2.3) mg/dL AST (17-59) U/L Alkaline Phosphatase (38-126) U/L Total Protein (6.3-8.2) g/dL Albumin (3.5-5.0) g/dL Assessment and Plan Assessment: Impression: Cardiac arrest with prolonged down time Suspect severe anoxic brain injury Suspect aspiration pneumonia End-stage renal disease on hemodialysis Type 1 diabetes. Peripheral vessel occlusive disease. 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 History of right eye retinal detachment requiring surgery. History of recent laparoscopic cholecystectomy. History of right and left AV fistula Recommendation: Continue ventilatory support. Hemodynamic support, titrate norepinephrine accordingly. Seen by neurology and by cardiology, yet to be seen by nephrology. EEG findings were discussed with the neurologist. Not encouraging. GI and DVT prophylaxis. Empiric antibiotics coverage for presumptive aspiration pneumonia Resume nutritional support/enteral feeding Patient remains critically ill, prognosis is extremely poor, discussed his condition with different consultants. Critical care time is over 30 minutes Time with Patient: Greater than 30
[2021-05-28 12:34] LABS: Glucose,Whole Blood 92 mg/dL (75-99)
--- NOTE | 2021-05-28 12:37 | ECHOF ---
Referral Reason:cardiac arrst MEASUREMENTS -------- HEIGHT: 188.0 cm WEIGHT: 68.0 kg BP: 100/45 RVIDd: 4.4 cm (< 3.3) IVSd: 1.9 cm (0.6 - 1.1) LVIDd: 3.4 cm (3.9 - 5.3) LVPWd: 1.8 cm (0.6 - 1.1) IVSs: 2.2 cm LVIDs: 2.5 cm LVPWs: 2.1 cm LA Diam: 2.8 cm (2.7 - 3.8) Ao Diam: 3.6 cm (2.0 - 3.7) AV Cusp: 2.5 cm (1.5 - 2.6) MV EXCURSION: 17.766 mm (> 18.000) MV EF SLOPE: 34 mm/s (70 - 150) EPSS: 0.7 cm MV E Mason: 0.72 m/s MV DecT: 376 ms MV A Mason: 0.59 m/s MV E/A Ratio: 1.21 RAP: 5.00 mmHg RVSP: 42.99 mmHg TAPSE: 14.01 mm FINDINGS -------- Sinus rhythm. This was a technically adequate study. The left ventricular size is normal. There is severe concentric left ventricular hypertrophy. Ove rall left ventricular systolic function is normal with, an EF between 55 - 60 %. The right ventricle is severely enlarged. The right ventricular systolic function is moderately imp aired. The left atrium is normal in size. The right atrium is normal in size. Interatrial and interventricular septum intact. The aortic valve is trileaflet, and appears structurally normal. No aortic stenosis or regurgitation. There is trace mitral regurgitation. Mild tricuspid regurgitation present. There is mild pulmonary hypertension. The right ventricular systolic pressure, as measured by Doppler, is 42.99mmHg. Trace/mild (physiologic) pulmonic regurgitation. The aortic root size is normal. Normal inferior vena cava with normal inspiratory collapse consistent with estimated right atrial pre ssure of 5 mmHg. There is no pericardial effusion. CONCLUSIONS -------- 1. The left ventricular size is normal. 2. There is severe concentric left ventricular hypertrophy. 3. Overall left ventricular systolic function is normal with, an EF between 55 - 60 %. 4. The right ventricle is severely enlarged. 5. The right ventricular systolic function is moderately impaired. 6. The aortic valve is trileaflet, and appears structurally normal. No aortic stenosis or regurgitati on. 7. There is trace mitral regurgitation. 8. Mild tricuspid regurgitation present. 9. There is mild pulmonary hypertension. 10. The right ventricular systolic pressure, as measured by Doppler, is 42.99mmHg. 11. Trace/mild (physiologic) pulmonic regurgitation. 12. There is no pericardial effusion. INSTITUTIONAL AIDE: Charlotte Painting RDCS
[2021-05-28 13:09] LABS: Glucose,Whole Blood 79 mg/dL (75-99)
--- NOTE | 2021-05-28 14:22 | P.PN ---
Progress Note - Text Progress Note Date: 05/28/21 Chief Complaint: Cardiac arrest History of presenting complaint: This is a 41-year-old patient follows with Dr. Trevino. Extensive medical history. Chronic stable medical conditions include asthma, diabetes, , hypertension, hyperlipidemia, history of bilateral pleural effusions, cardiac tamponade window, end-stage kidney disease on hemodialysis Sunday and Sunday , fistula in the right forearm, minimal bone disease, chronic anemia, peptic ulcer disease, peripheral arterial disease bilateral poor vision. Also has a fistula in the left arm it is maturing Reason admitted to the hospital and underwent cholecystectomy by Dr. Aguirre for acute cholecystitis and was discharged on May 23. Patient is stable. Doing well. Good oral intake. Today patient was undergoing hemodialysis and he developed cardiac arrest . He was taken to [place] ER and the downtime was anywhere between 30-60 minutes. Spontaneous circulation resumed. did receive about 3 dose epinephrine. He was taken by helicopter to [facility] ER. He has unequal pupils - fixed. He was moved to the ICU. Seen by Dr. Tarango, wind energy mechanic. Admitted with an anoxic brain injury following cardiac arrest. Intubated. EEG: No appreciable brain activity noted over the lateral hemisphere. No seizure activity. May 28: ICU. On ventilator support. Sinus rhythm. Sometimes breathing over the ventilator. Absent brainstem reflexes. Occasional spontaneous head movement. Mother, at the bedside. Discussed with mother, leaning towards comfort measures Review of systems: Patient intubated Active Medications Albuterol/Ipratropium (Ipratropium-Albuterol 3 Ml Neb) 3 ml INHALATION RT-QID [facility] Last Admin: 05/28/21 08:12 Dose: 3 ml Documented by: Chlorhexidine Gluconate (Chlorhexidine Gluconate 15 Ml Cup) 15 ml MUCOUS MEM BID [facility] Last Admin: 05/28/21 09:20 Dose: 15 ml Documented by: Enoxaparin Sodium (Enoxaparin 30 Mg/0.3 Ml Syringe) 30 mg SQ DAILY [facility] Last Admin: 05/28/21 09:24 Dose: 30 mg Documented by: Piperacillin Sod/Tazobactam (Sod 3.375 gm/ Sodium Chloride) 100 mls @ 25 mls/hr IVPB Q12H [facility] Last Admin: 05/28/21 02:59 Dose: 25 mls/hr Documented by: Dextrose/Sodium Chloride (Dextrose 5%-1/2ns Iv Soln) 1,000 mls @ 50 mls/hr IV .Q20H [facility] Last Admin: 05/28/21 09:27 Dose: 50 mls/hr Documented by: Sodium Chloride (Hypertonic) (Saline 3% (Hypertonic)) 500 mls @ 40 mls/hr IV .[id number] [facility]; Protocol Stop: 05/29/21 10:01 Last Admin: 05/28/21 10:14 Dose: 40 mls/hr Documented by: Norepinephrine Bitartrate 8 mg (/ Sodium Chloride) 258 mls @ 2.458 mls/hr IV .Q24H [facility]; Protocol Last Admin: 05/28/21 10:48 Dose: 0.02 mcg/kg/min, 2.458 mls/hr Documented by: Insulin Aspart (Insulin Aspart (Novolog) 100 Unit/Ml Vial) 0 unit SQ Q6H [facility]; Protocol Last Admin: 05/28/21 09:28 Dose: Not Given Documented by: Insulin Detemir (Insulin Detemir (Levemir) 100 Unit/Ml Syr) 18 unit SQ HS [facility] Last Admin: 05/27/21 22:16 Dose: 18 unit Documented by: Naloxone HCl (Naloxone 0.4 Mg/Ml 1 Ml Vial) 0.2 mg IV Q2M PRN PRN Reason: Opioid Reversal Pantoprazole Sodium (Pantoprazole 40 Mg/10 Ml Vial) 40 mg IV DAILY [facility] Last Admin: 05/28/21 09:22 Dose: 40 mg Documented by: Past medical history to include: Asthma, diabetes, GERD, peptic ulcer disease, hypertension, hyperlipidemia, bilateral pleural effusion with right-sided thoracentesis, decortication, cardiac tamponade window, diabetes type I since age of 21, on hemodialysis Sunday and Sunday of the fistula in the right lower arm. Minimal bone disease, chronic anemia, hiatal hernia, peptic ulcer disease, peripheral arterial disease, DJD, osteoarthritis of the left foot in 2012, have her take foot ulcers and amputations, right eye retinal detachment, left eye Blindness MRSA infections, ventriculoperitoneal shunt, depression Social history: Lives with his mother. No history of smoking. Alcohol rarely. Did chew tobacco in the past stopped 2016 Physical examination: VITAL SIGNS: 95, 69, 19, 109/69, 100% on ventilator [30%] GENERAL:, laying in bed, intubated EYES: Right pupil dilated fixed, left pupil smaller fixed. No corneal reflex.. HEENT:oral cavity endotracheal tube NECK: JVD not raised; masses not palpable. HEART: First and second heart sounds are normal; no edema. LUNGS: Respiratory rate increased; fair breath sounds. ABDOMEN: Soft, rno tenderness, no guarding rigidity, liver spleen not palpable, no masses palpable. PSYCH: Unable to answer questions EXTREMITIES: Right forearm arm AV fistula . Left upper extremity fistula. Left foot second to fifth toe amputated NEUROLOGICAL: No response to painful stimuli. Absent gag reflex. Absent corneal reflex. Absent dolls eyes movements INVESTIGATIONS, reviewed in the clinical context: May 28: White count 8.8 hemoglobin 10.5 platelets 154 potassium 3.4 BUN 44 creatinine 6.89. Accu-Cheks noted White count 7 hemoglobin 10.7 platelets 150 potassium 4.2 BUN 34 creatinine 6.6 Coronavirus [PCR]: Not detected EKG tracing personally reviewed by me: Normal sinus rhythm prolonged QT Chest x-ray film personally reviewed by me-[portable]: Borderline cardiomegaly lung matute clear Computed tomography scan of the brain: Loss of luna-white matter differentiation and effacement of the sulci. No hydrocephalus. Finding suggestive of anoxic brain injury Assessment and plan: -Anoxic brain injury: Patient status post cardiac arrest with a possible 30-60 minute downtime. Patient has absent brainstem reflexes. Computed tomography scan and EEG also suggestive also of anoxic brain injury.: No improvement -Diabetes mellitus type 1, since age of 21, chronically on insulin, uncontrolled with hypoglycemia Decrease Levemir to 20 units -Possible aspiration pneumonia On IV Zosyn -Intermittent asthma, bronchodilators, -History of loculated right pleural effusion previous pigtail catheter placement and alteplase infusion -GERD Tums when necessary -Hyperlipidemia Pravachol 40 mg daily at bedtime -Essential hypertension with chronic kidney disease Currently blood pressure low -Cardiogenic shock: Slow to respond On levo fed -Chronic kidney disease minimal bone disease -Hiatal hernia -Peripheral arterial disease Pravachol, and baby aspirin -Bilateral poor vision from diabetic retinopathy -Depression Zoloft 50 mg daily, Desyrel 100 mg daily at bedtime -Chronic insomnia for multiple medical problems Melatonin 3 mg daily at bedtime when necessary, trazodone 100 mg daily at bedtime -End-stage kidney disease on hemodialysis Sunday and Sunday Hemodialysis. As per nephrology right arm AV fistula is being used. has a maturing left upper extremity fistula -DO NOT RESUSCITATE Continue supportive care. On IV Zosyn. IV levo fed. Cutback Levemir to 20 units. Prognosis poor. Advanced care planning: Patient's care was discussed with the mother at the bedside. Results of the computed tomography scan EEG discussed. Patient's had poor quality of life last few years. She understands the same. Eating to with comfort measures. She also talked to her other son. She may lean towards comfort measures and make 24 hours.. Patient has been made no code today Time spent for ACP about 20 minutes
[2021-05-28 15:05] LABS: Glucose,Whole Blood 63 mg/dL (75-99)
[2021-05-28 15:46] LABS: Glucose,Whole Blood 107 mg/dL (75-99)
[2021-05-28 16:54] LABS: Glucose,Whole Blood 78 mg/dL (75-99)
[2021-05-28 18:22] LABS: Glucose,Whole Blood 89 mg/dL (75-99)
[2021-05-28 19:53] LABS: Glucose,Whole Blood 85 mg/dL (75-99)
[2021-05-28] MEDS ORDERED: INSULIN DETEMIR (LEVEMIR) 100 UNIT/ML SYR SQ SCH (21:00)
[2021-05-28 21:10] LABS: Glucose,Whole Blood 104 mg/dL (75-99)
[2021-05-28 22:06] LABS: Glucose,Whole Blood 101 mg/dL (75-99)
[2021-05-28 23:48] LABS: Glucose,Whole Blood 119 mg/dL (75-99)
[2021-05-29 02:39] LABS: Glucose,Whole Blood 141 mg/dL (75-99)
[2021-05-29] MEDS: PIPERACILLIN-TAZOBACTAM 3.375 GM in SODIUM CHLORIDE 0.9% 100 ML IVPB SCH (03:04)
[2021-05-29] MEDS: INSULIN ASPART (NovoLOG) 100 UNIT/ML VIAL SQ SCH ×2 (03:06→10:03)
[2021-05-29] MEDS: DEXTROSE 5%-0.45% NACL 1,000 ML IV SCH (03:59)
[2021-05-29 05:04] LABS: ABG Base Excess -7.3 mmol/L; ABG HCO3 20 mmol/L (21-25); ABG Oxygen Saturation 95.3 % (94-97); ABG PCO2 46 mmHg (35-45); ABG PH 7.25 (7.35-7.45); ABG PO2 83 mmHg (83-108); ABG TCO2 21 mmol/L (19-24); Allen Test Performed? Yes
[2021-05-29 05:24] LABS: Anisocytosis Slight; HCT 34.2 % (39.0-53.0); MCH 30.7 pg (25.0-35.0); MCHC 32.1 g/dL (31.0-37.0); MCV 95.8 fL (80.0-100.0); Mean Platelet Volume 9.7; Platelet Count 159 k/uL (150-450); RBC 3.57 m/uL (4.30-5.90); RDW 16.2 % (11.5-15.5); WBC 12.6 k/uL (3.8-10.6)
[2021-05-29 06:36] LABS: Glucose,Whole Blood 194 mg/dL (75-99)
[2021-05-29 07:12] LABS: Band Neutrophils % 17 %; Eosinophils # (M) 0.63 k/uL (0-0.7); Lymphocytes # (M) 1.01 k/uL (1.0-4.8); Monocytes # (M) 0.76 k/uL (0-1.0); Neutrophils % (M) 65 %; Nucleated Red Blood Cells 0 /100 WBC (0-0); Total Cells Counted 200
[2021-05-29 07:13] LABS: Polychromasia Present
[2021-05-29 07:14] LABS: RBC Fragments Present
[2021-05-29 07:15] LABS: Large Platelets Present
[2021-05-29 08:12] LABS: Glucose,Whole Blood 202 mg/dL (75-99)
[2021-05-29] MEDS: IPRATROPIUM-ALBUTEROL 3 ML NEB INHALATION SCH (08:18)
[2021-05-29 09:08] VITALS: TEMP 97.5
[2021-05-29] MEDS: CHLORHEXIDINE GLUCONATE 15 ML CUP MUCOUS MEM SCH (09:20)
[2021-05-29] MEDS: ENOXAPARIN 30 MG/0.3 ML SYRINGE SQ SCH (09:24)
[2021-05-29] MEDS: PANTOPRAZOLE 40 MG/10 ML VIAL IV SCH (09:27)
--- NOTE | 2021-05-29 09:29 | XR ---
EXAMINATION TYPE: XR chest 1V portable DATE OF EXAM: 05/29/2021 Comparison: 05/28/2021 Clinical History: 41 year-old male shortness of breath Findings: ET tube tip 2.3 cm from the melchor. NG tube courses below the diaphragm. Cardiac/pericardiac silhouet te mildly enlarged. Small bilateral pleural effusions. Right IJ CVC tip in the upper right atrium. So me Khari B lines in the periphery of the left midlung are unchanged. Impression: 1. ET tube tip now 2.3 cm from the melchor. Pull back 1.5 cm and reassessed at follow-up. 2. Mildly enlarged cardiac/pericardiac silhouette. Possible background COPD. 3. Continued small bilateral pleural effusions with adjacent atelectasis and/or consolidation. 4. Some Khari B lines particularly on the left are unchanged. Consider mild CHF with pulmonary vascu lar congestion.
[2021-05-29 09:35] LABS: Glucose,Whole Blood 179 mg/dL (75-99)
[2021-05-29 10:20] LABS: Glucose,Whole Blood 172 mg/dL (75-99)
[2021-05-29 10:21] VITALS: RESP 20
[2021-05-29 11:16] LABS: Glucose,Whole Blood 164 mg/dL (75-99)
[2021-05-29 11:22] VITALS: BP 99/61; PULSE 69
[2021-05-29] MEDS ORDERED: MORPHINE SULFATE 4 MG/ML SYRINGE IV PRN (11:45)
--- NOTE | 2021-05-29 11:55 | P.PN ---
Subjective Progress Note Date: 05/29/21 Per the overnight nurse and she stated that the patient continues to breathe over the vent. But per the the a.m. nurse she stated that the he was not breathing or the events and was not responsive to any commands. He continues to be on 3% hypertonic saline. Last Na is 141. Objective - Vital Signs Vital signs: Vital Signs Temp 97.5 F L 05/29/21 08:00 Pulse 69 05/29/21 11:15 Resp 20 05/29/21 11:15 BP 99/61 05/29/21 11:15 Pulse Ox 97 05/29/21 11:15 Intake & Output 05/28/21 05/29/21 05/29/21 18:59 06:59 18:59 Intake Total 6660.644 2080.7 602.203 Output Total 40 0 0 Balance 6438.065 8405.7 602.203 Weight 73.4 kg Intake: IV 1180 1420 550 0.9 220 240 100 Dextrose 5%-0.45% NaCl 1, 500 600 250 000 ml @ 50 mls/hr IV . Q20H [facility] Rx#:[id number] Piperacillin-Tazobactam 3 100 100 .375 gm In Sodium Chloride 0.9% 100 ml @ 25 mls/hr IVPB Q12H [facility] Rx# :[id number] Sodium Chloride 3%( 360 480 200 Hypertonic) 500 ml @ 40 mls/hr IV .[id number] [facility] Rx #:[id number] Intake, IV Titration 33.661 99.717 17.203 Amount Norepinephrine 32 mg In 1.220 Sodium Chloride 0.9% 218 ml @ 0.05 MCG/KG/MIN 1. 488 mls/hr IV .Q24H [facility] Rx#:[id number] Norepinephrine 8 mg In 32.441 99.717 17.203 Sodium Chloride 0.9% 250 ml @ 0.02 MCG/KG/MIN 2. 458 mls/hr IV .Q24H [facility] Rx#:[id number] Tube Feeding 340 385 35 Other 90 90 Output: Urine 0 0 0 Stool 40 Other: # Voids 0 0 # Bowel Movements 1 ABP, PAP, CO, CI - Last Documented Arterial Blood Pressure 123/43 - Exam GENERAL: The patient is lying in bed and does not seem in acute distress. CHEST: No murmurs to auscultation. No carotid bruit bilaterally. LUNG: Clear to auscultation bilaterally no wheezing noted throughout. Not labored breathing. Is intubated and on ventilator. ABDOMEN/GI: Bowel sounds present in all 4 quadrants. No tenderness to palpation throughout. NEUROLOGICAL: The exam is limited because of his condition. He is not on any sedation. Higher mental function: The patient is comatose GCS 3 (E1,VT1, M1). Not responding Not opening eyes or following commands. Cranial nerves: I had to manually open his eyes. Primary gaze is midline. The pupils are round, unequal (right is 5mm and left is 3mm and both are unreactive to light. Negative corneal bilaterally, Negative oculcephalic).. With painful stimuli not moving his head. Not breathing over the vent and went as low as A/C 3. Cerebellum: Could not assess because of condition. Sensation: Could not assess and even with painful stimulation no movement or grimacing.. Reflexes (right/left): 1+ throughout. Plantars is mute over the left while the left has left transmetatarsal amputation. . CT of the head is reported as loss of luna-white matter differentiation and effacement of sulci and some effacement of the ventricle without hydrocephalus. Finding can be compatible with anoxic injury. I personally reviewed that a CT of the head and I do agree there is a loss of luna-white matter differentiation compatible with anoxic injury. Routine EEG on 05/27/2021: As abnormal routine EEG. There is no appreciable brain activity noted over the bilateral hemisphere during this routine EEG. There is no seizure activity or epileptiform discharges seen. EKG is reported as normal sinus rhythm. Left atrial enlargement. Incomplete left bundle branch block. Prolonged QT. Abnormal EKG. White blood cells 7.0 which is within normal limits Initial sodium is 133, creatinine is 6.60, BUN 34, glucose of 407, calcium 7.9, magnesium is 2.4, AST of 79. Yates virus PCR was not detected - Labs CBC & Chem 7: 05/29/21 03:45 05/29/21 11:15 Labs: Abnormal Lab Results - Last 24 Hours (Table) 05/28/21 05/28/21 05/28/21 Range/Units 11:32 15:04 15:42 WBC (3.8-10.6) k/uL RBC (4.30-5.90) m/uL Hgb (13.0-17.5) gm/dL Hct (39.0-53.0) % RDW (11.5-15.5) % Neutrophils # (Manual) (1.3-7.7) k/uL ABG pH (7.35-7.45) ABG pCO2 (35-45) mmHg ABG HCO3 (21-25) mmol/L Sodium 136 L 136 L (137-145) mmol/L Chloride (98-107) mmol/L Carbon Dioxide (22-30) mmol/L BUN (9-20) mg/dL Creatinine (0.66-1.25) mg/dL Glucose (74-99) mg/dL POC Glucose (mg/dL) 63 L (75-99) mg/dL Calcium (8.4-10.2) mg/dL 05/28/21 05/28/21 05/28/21 Range/Units 15:44 21:08 22:05 WBC (3.8-10.6) k/uL RBC (4.30-5.90) m/uL Hgb (13.0-17.5) gm/dL Hct (39.0-53.0) % RDW (11.5-15.5) % Neutrophils # (Manual) (1.3-7.7) k/uL ABG pH (7.35-7.45) ABG pCO2 (35-45) mmHg ABG HCO3 (21-25) mmol/L Sodium (137-145) mmol/L Chloride (98-107) mmol/L Carbon Dioxide (22-30) mmol/L BUN (9-20) mg/dL Creatinine (0.66-1.25) mg/dL Glucose (74-99) mg/dL POC Glucose (mg/dL) 107 H 104 H 101 H (75-99) mg/dL Calcium (8.4-10.2) mg/dL 05/28/21 05/29/21 05/29/21 Range/Units 23:46 02:38 03:45 WBC (3.8-10.6) k/uL RBC (4.30-5.90) m/uL Hgb (13.0-17.5) gm/dL Hct (39.0-53.0) % RDW (11.5-15.5) % Neutrophils # (Manual) (1.3-7.7) k/uL ABG pH (7.35-7.45) ABG pCO2 (35-45) mmHg ABG HCO3 (21-25) mmol/L Sodium (137-145) mmol/L Chloride 110 H (98-107) mmol/L Carbon Dioxide 18 L (22-30) mmol/L BUN 51 H (9-20) mg/dL Creatinine 7.40 H* (0.66-1.25) mg/dL Glucose 210 H (74-99) mg/dL POC Glucose (mg/dL) 119 H 141 H (75-99) mg/dL Calcium 8.0 L (8.4-10.2) mg/dL 05/29/21 05/29/21 05/29/21 Range/Units 03:45 05:00 06:35 WBC 12.6 H (3.8-10.6) k/uL RBC 3.57 L (4.30-5.90) m/uL Hgb 11.0 L (13.0-17.5) gm/dL Hct 34.2 L (39.0-53.0) % RDW 16.2 H (11.5-15.5) % Neutrophils # (Manual) 10.30 H (1.3-7.7) k/uL ABG pH 7.25 L (7.35-7.45) ABG pCO2 46 H (35-45) mmHg ABG HCO3 20 L (21-25) mmol/L Sodium (137-145) mmol/L Chloride (98-107) mmol/L Carbon Dioxide (22-30) mmol/L BUN (9-20) mg/dL Creatinine (0.66-1.25) mg/dL Glucose (74-99) mg/dL POC Glucose (mg/dL) 194 H (75-99) mg/dL Calcium (8.4-10.2) mg/dL 05/29/21 05/29/21 05/29/21 Range/Units 08:10 09:33 10:18 WBC (3.8-10.6) k/uL RBC (4.30-5.90) m/uL Hgb (13.0-17.5) gm/dL Hct (39.0-53.0) % RDW (11.5-15.5) % Neutrophils # (Manual) (1.3-7.7) k/uL ABG pH (7.35-7.45) ABG pCO2 (35-45) mmHg ABG HCO3 (21-25) mmol/L Sodium (137-145) mmol/L Chloride (98-107) mmol/L Carbon Dioxide (22-30) mmol/L BUN (9-20) mg/dL Creatinine (0.66-1.25) mg/dL Glucose (74-99) mg/dL POC Glucose (mg/dL) 202 H 179 H 172 H (75-99) mg/dL Calcium (8.4-10.2) mg/dL 05/29/21 Range/Units 11:15 WBC (3.8-10.6) k/uL RBC (4.30-5.90) m/uL Hgb (13.0-17.5) gm/dL Hct (39.0-53.0) % RDW (11.5-15.5) % Neutrophils # (Manual) (1.3-7.7) k/uL ABG pH (7.35-7.45) ABG pCO2 (35-45) mmHg ABG HCO3 (21-25) mmol/L Sodium (137-145) mmol/L Chloride (98-107) mmol/L Carbon Dioxide (22-30) mmol/L BUN (9-20) mg/dL Creatinine (0.66-1.25) mg/dL Glucose (74-99) mg/dL POC Glucose (mg/dL) 164 H (75-99) mg/dL Calcium (8.4-10.2) mg/dL Assessment and Plan Assessment: Severe anoxic brain injury/encephalopathy due to prolonged cardiac arrest at outside facility (for at least 30-60 minutes). No brainstem reflex on today's exam and is not on any sedation since arrival to our facility. Patient does have some component of metabolic abnormality (hyperglycemia (as low as 30's), hypovolemia and with electrolyte abnormality)--hypoglycemic episodes resolved. 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 Na+ check Q4 hours Q1 hour neuro checks I ordered repeat CT head and if patient's mother decides to terminally wean him, then no need of it. Please avoid any hypoglycemia and hypovolemia and will defer management to primary/ICU team. Recommend to proceed with dialysis. We'll defer the metabolic abnormality and electrolyte abnormality correction to the primary team/ICU team. CONDITION: VERY GUARDED. On current exam, I see no brainstem reflex and he seems worse today compared to yesterday. Per the nurse, the patient mother will terminally wean him. The plan is also discussed with ICU team. Laurent Corey MD Neuro-Hospitalist Time with Patient: Less than 30
--- NOTE | 2021-05-29 12:26 | P.PN ---
Subjective Progress Note Date: 05/29/21 Principal diagnosis: Cardiac arrest and anoxic brain injury This is a 41-year-old white male with history of multiple medical problems including end-stage renal disease, history of recent laparoscopic cholecystectomy done at our institution, benign essential hypertension, dyslipi demia, history of GI bleeding, peripheral vessel occlusive disease, history of right-sided pleural effusion requiring decortication in the past, history of cardiac tamponade tamponade requiring a pericardial window. History of previous transmetatarsal amputation of the left foot, history of right eye retinal detachment, and history of previous MRSA infection. History of ventriculo peritoneal shunt. Patient was last discharged on 05/23/2021, he underwent laparoscopic cholecystectomy by Dr. Aguirre on 05/20/21. His hospital course was relatively uneventful. Today, the patient was undergoing hemodialysis. His endoscopy, and he developed a sudden cardiac arrest while undergoing hemodialysi s. Patient was seen in the emergency room at [facility], he was resuscitated by the hemodialysis staff initially via ACLS protocol. His approximate time was anywhere between 30-60 minutes. In the ER, at [facility], patient did have a return of spontaneous circulation, his airway was exchanged by the ER physician at [place], and a central venous access through the IJ was obtained by the ER physician at [place]. Patient received a total of 3 rounds of epinephrine and 1 calcium. Patient was eventually transported via helicopter down to [facility]. Patient did not require any pressors during transport, and he did not require any sedatives. Did not have any spontaneous respiration. I saw the patient down in the ER, he was hemodynamically stable, he had no responses whatsoever, his pupils were unequal however he had previous surgery on his right eye/pupil. Discussed his status with his mother at bedside, and we will be transferring the patient shortly up to the ICU. Updated the mother that the patient has clearly what seems to be severe anoxic brain injury, multiple consultants will be seeing the patient including neurology. Further testing will be done to determine the severity of his anoxic brain injury. Patient was reevaluated today on 05/28/2021, patient remains in the ICU, intubated and mechanically ventilated. Patient is unresponsive to any painful stimuli. He is on assist control rate of 18 tidal volume 450 FiO2 30%, and PEEP of 5 ABG this morning showed a pO2 of 153 pCO2 of 38 pH of 7.40 patient is requiring a small dose of norepinephrine at 0.03 mcg/kg/m. He is on enteral feeding utilizing Nepro /. Patient had an EEG yesterday which is pointing to extremely poor prognosis, and severe anoxic brain injury. THE patient is not brain , still triggering the ventilator, and breathing beyond assessed today. No meaningful responses noted. Patient is not responding to any deep painful stimuli. Pupils are basically about the same. Asked x-ray today showed hyperinflated lungs, minimal bibasilar subsegmental atelectasis. No significant change since yesterday. CBC is relatively normal, basic metabolic profile is normal ER and is 44 creatinine 6.89, patient will likely have dialysis today after evaluation by nephrology Reevaluated today on 05/29/2021, patient remains in the ICU, intubated and mechanically ventilated, continues to be not responsive to any stimuli including painful stimuli. His assist-control rate is 18 tidal volume is 450 FiO2 30% PEEP of 5 today after reviewing his ABG increase his rate to 20 and increase his FiO2 to 35%. Patient remains on norepinephrine at 0.04 mcg/kg/m. He was given mannitol by the neurologist on the case. He was also given 3% saline, and overall not much of a change since admission, patient obviously sustained a severe anoxic brain injury. His labs today showed WBC count of 12.6 hemoglobin is 11. ABG showed a pO2 of 83 pCO2 46 pH of 7.25 BUN is 51 creatinine 7.40 sodium is 1418 carb is 18. Chest x-ray showed small bilateral pleural effusions, adequate placement of lines and catheters. Including endotracheal tube and right IJ central line. Objective - Vital Signs Vital signs: Vital Signs Temp 97.5 F L 05/29/21 08:00 Pulse 69 05/29/21 11:15 Resp 20 05/29/21 11:15 BP 99/61 05/29/21 11:15 Pulse Ox 97 05/29/21 11:15 Intake & Output 05/28/21 05/29/21 05/29/21 18:59 06:59 18:59 Intake Total 7922.081 6404.717 602.203 Output Total 40 0 0 Balance 6944.241 0521.717 602.203 Weight 73.4 kg Intake: IV 1180 1420 550 0.9 220 240 100 Dextrose 5%-0.45% NaCl 1, 500 600 250 000 ml @ 50 mls/hr IV . Q20H [facility] Rx#:[id number] Piperacillin-Tazobactam 3 100 100 .375 gm In Sodium Chloride 0.9% 100 ml @ 25 mls/hr IVPB Q12H [facility] Rx# :[id number] Sodium Chloride 3%( 360 480 200 Hypertonic) 500 ml @ 40 mls/hr IV .[id number] [facility] Rx #:[id number] Intake, IV Titration 33.661 99.717 17.203 Amount Norepinephrine 32 mg In 1.220 Sodium Chloride 0.9% 218 ml @ 0.05 MCG/KG/MIN 1. 488 mls/hr IV .Q24H [facility] Rx#:[id number] Norepinephrine 8 mg In 32.441 99.717 17.203 Sodium Chloride 0.9% 250 ml @ 0.02 MCG/KG/MIN 2. 458 mls/hr IV .Q24H [facility] Rx#:[id number] Tube Feeding 340 385 35 Other 90 90 Output: Urine 0 0 0 Stool 40 Other: # Voids 0 0 # Bowel Movements 1 ABP, PAP, CO, CI - Last Documented Arterial Blood Pressure 123/43 - Exam General appearance: Revealed a 41-year-old white male intubated, unresponsive to any stimuli Head exam: Atraumatic, normocephalic. Endotracheal tube and orogastric tube are noted, right IJ central line is noted. Eye exam: Absent: PERRL (Both pupils are nonreactive, right pupil appears postsurgical, proximally 6 mm on the left pupil is 4 mm. No corneal reflex) Respiratory exam: 9 crackles at the bases. No rhonchi no wheezes. Cardiovascular Exam: Normal S1 and S2, no S3 gallop. 2/6 systolic murmur thought the precordium. GI/Abdominal exam: Soft nontender no megaly no rebound no guarding. Extremities exam: Left sided transmetatarsal amputation is noted, good pulses noted bilaterally/dorsalis pedis pulses are palpable in both feet. Neurological exam: Unresponsive to any stimuli. No spontaneous movement. Skin exam: No rashes. AV fistulas is noted in both forearms. - Labs CBC & Chem 7: 05/29/21 03:45 05/29/21 11:15 Labs: Abnormal Lab Results - Last 24 Hours (Table) 05/28/21 05/28/21 05/28/21 Range/Units 15:04 15:42 15:44 WBC (3.8-10.6) k/uL RBC (4.30-5.90) m/uL Hgb (13.0-17.5) gm/dL Hct (39.0-53.0) % RDW (11.5-15.5) % Neutrophils # (Manual) (1.3-7.7) k/uL ABG pH (7.35-7.45) ABG pCO2 (35-45) mmHg ABG HCO3 (21-25) mmol/L Sodium 136 L (137-145) mmol/L Chloride (98-107) mmol/L Carbon Dioxide (22-30) mmol/L BUN (9-20) mg/dL Creatinine (0.66-1.25) mg/dL Glucose (74-99) mg/dL POC Glucose (mg/dL) 63 L 107 H (75-99) mg/dL Calcium (8.4-10.2) mg/dL 05/28/21 05/28/21 05/28/21 Range/Units 21:08 22:05 23:46 WBC (3.8-10.6) k/uL RBC (4.30-5.90) m/uL Hgb (13.0-17.5) gm/dL Hct (39.0-53.0) % RDW (11.5-15.5) % Neutrophils # (Manual) (1.3-7.7) k/uL ABG pH (7.35-7.45) ABG pCO2 (35-45) mmHg ABG HCO3 (21-25) mmol/L Sodium (137-145) mmol/L Chloride (98-107) mmol/L Carbon Dioxide (22-30) mmol/L BUN (9-20) mg/dL Creatinine (0.66-1.25) mg/dL Glucose (74-99) mg/dL POC Glucose (mg/dL) 104 H 101 H 119 H (75-99) mg/dL Calcium (8.4-10.2) mg/dL 05/29/21 05/29/21 05/29/21 Range/Units 02:38 03:45 03:45 WBC 12.6 H (3.8-10.6) k/uL RBC 3.57 L (4.30-5.90) m/uL Hgb 11.0 L (13.0-17.5) gm/dL Hct 34.2 L (39.0-53.0) % RDW 16.2 H (11.5-15.5) % Neutrophils # (Manual) 10.30 H (1.3-7.7) k/uL ABG pH (7.35-7.45) ABG pCO2 (35-45) mmHg ABG HCO3 (21-25) mmol/L Sodium (137-145) mmol/L Chloride 110 H (98-107) mmol/L Carbon Dioxide 18 L (22-30) mmol/L BUN 51 H (9-20) mg/dL Creatinine 7.40 H* (0.66-1.25) mg/dL Glucose 210 H (74-99) mg/dL POC Glucose (mg/dL) 141 H (75-99) mg/dL Calcium 8.0 L (8.4-10.2) mg/dL 05/29/21 05/29/21 05/29/21 Range/Units 05:00 06:35 08:10 WBC (3.8-10.6) k/uL RBC (4.30-5.90) m/uL Hgb (13.0-17.5) gm/dL Hct (39.0-53.0) % RDW (11.5-15.5) % Neutrophils # (Manual) (1.3-7.7) k/uL ABG pH 7.25 L (7.35-7.45) ABG pCO2 46 H (35-45) mmHg ABG HCO3 20 L (21-25) mmol/L Sodium (137-145) mmol/L Chloride (98-107) mmol/L Carbon Dioxide (22-30) mmol/L BUN (9-20) mg/dL Creatinine (0.66-1.25) mg/dL Glucose (74-99) mg/dL POC Glucose (mg/dL) 194 H 202 H (75-99) mg/dL Calcium (8.4-10.2) mg/dL 09/05/29/21 05/29/21 Range/Units 09:33 10:18 11:15 WBC (3.8-10.6) k/uL RBC (4.30-5.90) m/uL Hgb (13.0-17.5) gm/dL Hct (39.0-53.0) % RDW (11.5-15.5) % Neutrophils # (Manual) (1.3-7.7) k/uL ABG pH (7.35-7.45) ABG pCO2 (35-45) mmHg ABG HCO3 (21-25) mmol/L Sodium (137-145) mmol/L Chloride (98-107) mmol/L Carbon Dioxide (22-30) mmol/L BUN (9-20) mg/dL Creatinine (0.66-1.25) mg/dL Glucose (74-99) mg/dL POC Glucose (mg/dL) 179 H 172 H 164 H (75-99) mg/dL Calcium (8.4-10.2) mg/dL Assessment and Plan Assessment: Impression: Cardiac arrest with prolonged down time severe anoxic brain injury Possible aspiration pneumonia, improving on chest x-ray from today. End-stage renal disease on hemodialysis Type 1 diabetes. Peripheral vessel occlusive disease. 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 History of right eye retinal detachment requiring surgery. History of recent laparoscopic cholecystectomy. History of right and left AV fistula Recommendation: Continue ventilatory support. Increase rate to 20 increase FiO2 to 35% continue total volume of 450 and PEEP of 5 Hemodynamic support, titrate norepinephrine accordingly. Patient is presently on 0.04 mcg/kg/m. GI and DVT prophylaxis. Continue Empiric antibiotics coverage for presumptive aspiration pneumonia nutritional support/enteral feeding Patient remains critically ill, prognosis is extremely poor, discussed his condition with different consultants. Family is considering comfort care measures possibly sometime today. Critical care time is over 30 minutes Time with Patient: Greater than 30
--- NOTE | 2021-05-29 14:06 | P.DS ---
Providers Date of admission: 05/27/21 11:32 Expected date of discharge: 05/29/21 (Patient ) Attending physician: Kristopher Stone Consults: 05/27/21 11:29 Consult Physician Routine Consulting Provider: Laurent Corey Consult Reason/Comments: S/P cardiac arrest Do you want consulting provider notified?: Yes Consult Physician Urgent Consulting Provider: Volodymyr Tarango Consult Reason/Comments: Status post cardiac arrest Do you want consulting provider notified?: Already Contacted 05/27/21 12:22 Consult Physician Routine Consulting Provider: Lex Sarkar Consult Reason/Comments: asrd/cardiac arrest Do you want consulting provider notified?: Yes Primary care physician: [facility] Course: Chief Complaint: Cardiac arrest History of presenting complaint: This is a 41-year-old patient follows with Dr. Trevino. Extensive medical history. Chronic stable medical conditions include asthma, diabetes, , hypertension, hyperlipidemia, history of bilateral pleural effusions, cardiac tamponade window, end-stage kidney disease on hemodialysis Sunday and Sunday , fistula in the right forearm, minimal bone disease, chronic anemia, peptic ulcer disease, peripheral arterial disease bilateral poor vision. Also has a fistula in the left arm it is maturing Reason admitted to the hospital and underwent cholecystectomy by Dr. Aguirre for acute cholecystitis and was discharged on May 23. Patient is stable. Doing well. Good oral intake. Today patient was undergoing hemodialysis and he developed cardiac arrest . He was taken to [place] ER and the downtime was anywhere between 30-60 minutes. Spontaneous circulation resumed. did receive about 3 dose epinephrine. He was taken by helicopter to [facility] ER. He has unequal pupils - fixed. He was moved to the ICU. Seen by Dr. Tarango, communications department chairperson. Admitted with an anoxic brain injury following cardiac arrest. Intubated. EEG: No appreciable brain activity noted over the lateral hemisphere. No seizure activity. May 28: ICU. On ventilator support. Sinus rhythm. Sometimes breathing over the ventilator. Absent brainstem reflexes. Occasional spontaneous head movement. Mother, at the bedside. Discussed with mother, leaning towards comfort measures May 29: ICU: Patient was terminally extubated. Family present. Patient Consultation: Dr. Tarango in partners from pulmonary Dr. Corey from neurology Dr. Garcia from cardiology Past medical history to include: Asthma, diabetes, GERD, peptic ulcer disease, hypertension, hyperlipidemia, bilateral pleural effusion with right-sided thoracentesis, decortication, cardiac tamponade window, diabetes type I since age of 21, on hemodialysis Sunday and Sunday of the fistula in the right lower arm. Minimal bone disease, chronic anemia, hiatal hernia, peptic ulcer disease, peripheral arterial disease, DJD, osteoarthritis of the left foot in 2012, have her take foot ulcers and amputations, right eye retinal detachment, left eye Blindness MRSA infections, ventriculoperitoneal shunt, depression Social history: Lives with his mother. No history of smoking. Alcohol rarely. Did chew tobacco in the past stopped 2016 INVESTIGATIONS, reviewed in the clinical context: May 28: White count 8.8 hemoglobin 10.5 platelets 154 potassium 3.4 BUN 44 creatinine 6.89. Accu-Cheks noted White count 7 hemoglobin 10.7 platelets 150 potassium 4.2 BUN 34 creatinine 6.6 Coronavirus [PCR]: Not detected EKG tracing personally reviewed by me: Normal sinus rhythm prolonged QT Chest x-ray film personally reviewed by me-[portable]: Borderline cardiomegaly lung matute clear Computed tomography scan of the brain: Loss of luna-white matter differentiation and effacement of the sulci. No hydrocephalus. Finding suggestive of anoxic brain injury Cause of : Diabetes mellitus type 1 Assessment and plan: -Anoxic brain injury: Patient status post cardiac arrest with a possible 30-60 minute downtime. Patient has absent brainstem reflexes. Computed tomography scan and EEG also suggestive also of anoxic brain injury.: No improvement -Diabetes mellitus type 1, since age of 21, chronically on insulin, uncontrolled with hypoglycemia -Possible aspiration pneumonia -Intermittent asthma, -History of loculated right pleural effusion previous pigtail catheter placement and alteplase infusion -GERD -Hyperlipidemia -Essential hypertension with chronic kidney disease -Cardiogenic shock: Slow to respond -Chronic kidney disease minimal bone disease -Hiatal hernia -Peripheral arterial disease -Bilateral poor vision from diabetic retinopathy -Depression -Chronic insomnia for multiple medical problems -End-stage kidney disease on hemodialysis Sunday and Sunday Disposition: Patient Patient Condition at Discharge: Poor Plan - Discharge Summary Discharge Rx Participant: Yes New Discharge Prescriptions: No Action Pravastatin Sodium [Pravachol] 40 mg PO HS amLODIPine [Norvasc] 10 mg PO DAILY Dicyclomine [Bentyl] 20 mg PO QID PRN PRN Reason: Gi Upset Glucagon Emergency Kit 1 mg IM ONCE PRN PRN Reason: HYPOGLYCEMIA EVENT Sertraline [Zoloft] 50 mg PO DAILY hydrALAZINE HCL [Apresoline] 100 mg PO TID HYDROcodone/APAP 5-325MG [[place] 5-325] 1 tab PO BID PRN PRN Reason: Pain ARIPiprazole [Abilify] 15 mg PO HS Loratadine [Alavert] 10 mg PO DAILY PRN PRN Reason: Allergy Symptoms Gabapentin [Neurontin] 100 mg PO HS cap Metoclopramide HCl [Reglan] 5 mg PO HS Insulin Degludec [Tresiba] 20 unit SQ DAILY Carvedilol [Coreg] 12.5 mg PO BID Albuterol Inhaler [Ventolin Hfa Inhaler] 1 puff INHALATION RT-QID PRN #1 puff PRN Reason: Wheezing tiZANidine HCL 2 mg PO Q8H PRN PRN Reason: Muscle Pain traZODone HCL 100 mg PO HS Simethicone [Gas-X] 125 mg PO AC-TID PRN #20 cap PRN Reason: Pain Psyllium Husk 100% [Metamucil Packet] 6 gm PO DAILY #30 packet Multivitamins, Thera [Multivitamin (formulary)] 1 tab PO DAILY Loperamide HCl [Loperamide] 2 mg PO QID PRN PRN Reason: Diarrhea Albuterol Nebulized [Ventolin Nebulized] 2.5 mg INHALATION RT-QID #0 ml Acetaminophen Tab [Tylenol Tab] 500 mg PO Q6H PRN #30 tablet PRN Reason: Pain Calcium Acetate [PhosLo] 667 mg PO TID-W/MEALS #90 tab Amoxic-Pot Clav 500-125 mg [Augmentin 500-125 mg] 1 tab PO Q12HR #10 tab Discharge Medication List Pravastatin Sodium [Pravachol] 40 mg PO HS 12/26/15 [History] amLODIPine [Norvasc] 10 mg PO DAILY 11/14/18 [History] Dicyclomine [Bentyl] 20 mg PO QID PRN 02/28/19 [History] Glucagon Emergency Kit 1 mg IM ONCE PRN 02/28/19 [History] ARIPiprazole [Abilify] 15 mg PO HS 04/19/20 [History] HYDROcodone/APAP 5-325MG [Genoa 5-325] 1 tab PO BID PRN 04/19/20 [History] Sertraline [Zoloft] 50 mg PO DAILY 04/19/20 [History] hydrALAZINE HCL [Apresoline] 100 mg PO TID 04/19/20 [History] Loratadine [Alavert] 10 mg PO DAILY PRN 05/10/20 [History] Gabapentin [Neurontin] 100 mg PO HS cap 05/11/20 [Rx] Metoclopramide HCl [Reglan] 5 mg PO HS 10/04/20 [History] Insulin Degludec [Tresiba] 20 unit SQ DAILY 10/12/20 [History] Carvedilol [Coreg] 12.5 mg PO BID 03/22/21 [History] Loperamide HCl [Loperamide] 2 mg PO QID PRN 03/22/21 [History] Multivitamins, Thera [Multivitamin (formulary)] 1 tab PO DAILY 03/22/21 [History] Albuterol Inhaler [Ventolin Hfa Inhaler] 1 puff INHALATION RT-QID PRN #1 puff 03/25/21 [Rx] Albuterol Nebulized [Ventolin Nebulized] 2.5 mg INHALATION RT-QID #0 ml 03/25/21 [Rx] tiZANidine HCL 2 mg PO Q8H PRN 05/18/21 [History] traZODone HCL 100 mg PO HS 05/18/21 [History] Acetaminophen Tab [Tylenol Tab] 500 mg PO Q6H PRN #30 tablet 05/20/21 [Rx] Simethicone [Gas-X] 125 mg PO AC-TID PRN #20 cap 05/20/21 [Rx] Amoxic-Pot Clav 500-125 mg [Augmentin 500-125 mg] 1 tab PO Q12HR #10 tab 05/22/21 [Rx] Calcium Acetate [PhosLo] 667 mg PO TID-W/MEALS #90 tab 05/22/21 [Rx] Psyllium Husk 100% [Metamucil Packet] 6 gm PO DAILY #30 packet 05/23/21 [Rx] Follow up Appointment(s)/Referral(s): Chad Trevino MD [Primary Care Provider] - 1-2 days
--- NOTE | 2021-05-29 18:10 | PN ---
PROGRESS NOTE Patient is seen for followup for end-stage renal disease. He remains on the vent. Apparently yesterday there were some movements noted and patient was also breathing over the vent. However, he remains largely unresponsive with fixed pupils. Family has been talked to regarding code status and there are plans for possible withdrawal of care. PHYSICAL EXAMINATION: On examination today, patient remains on the vent. Blood pressure this morning 90/54, heart rate 70 per minute. He is maintained on Levophed. Examination of the heart S1, S2. Examination of the lungs, bilateral breath sounds are heard. Abdomen is soft. Examination of lower extremities shows no evidence of edema. LIBRARY TECHNOLOGY INSTRUCTOR exam shows no significant responses. Pupils are fixed. LAB: Show hemoglobin 11.0, sodium 137, potassium 4.0, serum creatinine 7.4. ASSESSMENT: 1. End-stage renal disease on hemodialysis on a Sunday, Sunday, Sunday schedule. 2. Status post cardiac arrest. 3. Severe anoxic encephalopathy. 4. History of recent cholecystectomy. PLAN: Hold dialysis as patient's family is considering withdrawal of care. MMODL / IJN: [id number] /
--- NOTE | 2021-06-03 10:21 | CDI ---
Documentation Clarification Form Date: 06/03/2021 From: Gloria Babb RN, CCDS Email: [email or web address] Admit Date: 05/27/2021 11:32:00 AM Patient Name: Jairo Howell Visit Number: [id number] Discharge Date: 05/29/2021 03:00:00 PM ATTENTION: The Clinical Documentation Specialists (CDI) and [facility] Coding Staff appreciate your assistance in clarifying documentation. Please respond to the clarification below the line at the bottom and electronically sign. The CDI & [facility] Coding staff will review the response and follow-up if needed. Please note: Queries are made part of the Legal Health Record. If you have any questions, please contact the author of this message via ITS. Dr. Kristopher Stone The patient was admitted from an outside hospital following cardiac arrest. Satellite Tv Installer documented "likely related to hyperkalemia." Additional clarification is requested for the cause. History/Risk Factors: 05/27 H&P: "asthma, diabetes, hypertension, hyperlipidemia, history of bilateral pleural effusions, cardiac tamponade window, end-stage kidney disease on hemodialysis Sunday and Sunday, fistula in the right forearm, minimal bone disease, chronic anemia, peptic ulcer disease, peripheral arterial disease bilateral poor vision. Also has a fistula in the left arm it is maturing. Today patient is undergoing hemodialysis and he developed cardiac arrest needing the same. He was taken to [place] ER and the downtime was anywhere between 30- 60 minutes. Patient didn't have any done a spontaneous ablation. Patient did receive about 3 dose epinephrine. He was slowed down by helicopter to [place] in working on ER. He has unequal pupils to fixed. He was moved to the ICU." Clinical Indicators: 05/27 H&P: "Patient status post cardiac arrest with a possible 30-60 minute downtime. Patient has absent brainstem reflexes. Computed tomography scan findings suggestive also of anoxic brain injury. White count 7 hemoglobin 10.7 platelets 150 potassium 4.2 BUN 34 creatinine 6.6. Coronavirus [PCR]: Not detected. EKG tracing personally reviewed by me: Normal sinus rhythm prolonged QT. Chest x-ray film personally reviewed by me-[portable]: Borderline cardiomegaly, lung matute clear. Computed tomography scan of the brain: Loss of luna-white matter differentiation and effacement of the sulci. No hydrocephalus. Finding suggestive of anoxic brain injury." 05/28 Cardiology Consult: "There was no report of any chest pain prior to cardiac arrest and no reported ventricular tachycardia or ventricular fibrillation. Previous echo from 03/23/2021 showed EF 55-60%, severe left ventricular hypertrophy, severe tricuspid regurgitation, RVSP of 60, trivial pericardial effusion, mild mitral regurgitation. Assessment: Cardiac arrest during dialysis, given calcium and most likely related to hyperkalemia. Patient unfortunately suffered a cardiac arrest. Unclear etiology however most likely hyperkalemia has patient was receiving dialysis at the time. No reported chest pain or pressure prior to episode. Unfortunately patient had prolonged downtime and currently unresponsive, CTA showing findings consistent with anoxic brain injury." Treatment: 05/28 progress note: ventilatory support. Hemodynamic support, titrate norepinephrine accordingly. Seen by neurology and by cardiology, yet to be seen by nephrology. EEG findings were discussed with the neurologist. Not encouraging. GI and DVT prophylaxis. Empiric antibiotics coverage for presumptive aspiration pneumonia. Resume nutritional support/enteral feeding. Please clarify the likely cause of cardiac arrest: [ ] Hyperkalemia [ ] Arrhythmia [ ] Other, please specify [ ] Unable to determine Cardiac arrest possibly due to hyperkalemia, per cardiology MTDD
== END 2021-05-29 15:00 | disposition expired | DRG 640 ==
LOC: EC 11:08 → 2SICU 11:32
PROVIDERS: ADMIT Hospitalist; ATTEND Hospitalist
PROC: 5A1945Z Respiratory Ventilation, 24-96 Consecutive Hours (ICD-10-PCS; principal; 2021-05-27)
PROC: 3E043XZ Introduction of Vasopressor into Central Vein, Percutaneous Approach (ICD-10-PCS; principal; 2021-05-27)
PROC: 3E0G76Z Introduction of Nutritional Substance into Upper GI, Via Natural or Artificial Opening (ICD-10-PCS; 2021-05-27)
PROC: 0D9670Z Drainage of Stomach with Drainage Device, Via Natural or Artificial Opening (ICD-10-PCS; 2021-05-27)
PROC: 04HY32Z Insertion of Monitoring Device into Lower Artery, Percutaneous Approach (ICD-10-PCS; 2021-05-27)
PROC: 4A133J1 Monitoring of Arterial Pulse, Peripheral, Percutaneous Approach (ICD-10-PCS; 2021-05-27)
PROC: 4A133B1 Monitoring of Arterial Pressure, Peripheral, Percutaneous Approach (ICD-10-PCS; 2021-05-27)
DX: E87.5 Hyperkalemia (principal); N18.6 End stage renal disease; J96.01 Acute respiratory failure with hypoxia; G93.6 Cerebral edema; J69.0 Pneumonitis due to inhalation of food and vomit; G93.1 Anoxic brain damage, not elsewhere classified; J90 Pleural effusion, not elsewhere classified; J98.11 Atelectasis; I12.0 Hypertensive chronic kidney disease with stage 5 chronic kidney disease or end stage renal disease; E10.319 Type 1 diabetes mellitus with unspecified diabetic retinopathy without macular edema; E10.36 Type 1 diabetes mellitus with diabetic cataract; D63.1 Anemia in chronic kidney disease; E10.51 Type 1 diabetes mellitus with diabetic peripheral angiopathy without gangrene; E10.42 Type 1 diabetes mellitus with diabetic polyneuropathy; E10.649 Type 1 diabetes mellitus with hypoglycemia without coma; E10.22 Type 1 diabetes mellitus with diabetic chronic kidney disease; E10.65 Type 1 diabetes mellitus with hyperglycemia; I46.8 Cardiac arrest due to other underlying condition; Z79.4 Long term (current) use of insulin; Z99.2 Dependence on renal dialysis; Z89.422 Acquired absence of other left toe(s); Z89.412 Acquired absence of left great toe; Z66 Do not resuscitate; Z51.5 Encounter for palliative care; Z20.822 Contact with and (suspected) exposure to COVID-19; E83.9 Disorder of mineral metabolism, unspecified; F32.9 Major depressive disorder, single episode, unspecified; J45.20 Mild intermittent asthma, uncomplicated; I08.1 Rheumatic disorders of both mitral and tricuspid valves; I44.7 Left bundle-branch block, unspecified; E78.5 Hyperlipidemia, unspecified; K21.9 Gastro-esophageal reflux disease without esophagitis; K44.9 Diaphragmatic hernia without obstruction or gangrene; E86.1 Hypovolemia; M54.5 Low back pain; H26.9 Unspecified cataract; F51.04 Psychophysiologic insomnia; H54.7 Unspecified visual loss; M19.072 Primary osteoarthritis, left ankle and foot; Z79.899 Other long term (current) drug therapy; Z87.01 Personal history of pneumonia (recurrent); Z87.11 Personal history of peptic ulcer disease; Z87.2 Personal history of diseases of the skin and subcutaneous tissue; Z86.31 Personal history of diabetic foot ulcer; Z86.14 Personal history of Methicillin resistant Staphylococcus aureus infection; Z90.49 Acquired absence of other specified parts of digestive tract; Z87.19 Personal history of other diseases of the digestive system; Z98.2 Presence of cerebrospinal fluid drainage device; Z86.69 Personal history of other diseases of the nervous system and sense organs; Z87.891 Personal history of nicotine dependence; Z86.79 Personal history of other diseases of the circulatory system; Z86.19 Personal history of other infectious and parasitic diseases; Z98.890 Other specified postprocedural states; Z88.5 Allergy status to narcotic agent; Z88.8 Allergy status to other drugs, medicaments and biological substances; Z82.49 Family history of ischemic heart disease and other diseases of the circulatory system; Z82.3 Family history of stroke; Z83.3 Family history of diabetes mellitus
CPT/HCPCS: 36415; 70450; 71045; 80048; 80053; 82805; 83735; 84100; 84295; 85025; 85027; 85610; 85730; 87324; 87635; 93005; 93306; 94002; 94003; 94640; 95822; 99291